=== PATIENT | female | born 1945 | race Caucasian/White ===

== ENCOUNTER → 2017-08-18 08:13 | Outpatient (CLI) | payer MEDICARE, SELFPAY ==
[2017-06-14 02:45] VITALS: BMI 30.5
--- NOTE | 2017-08-18 11:19 | NEURO ---
NCS and/or EMG Patient Report Ordering Doctor: Becky Burrows DATE OF SERVICE: 08/18/17 This is a left lower extremity nerve conduction study performed on this 71-year-old female with a history of stroke and spasms in her left lower extremity. Patient is diabetic but her last hemoglobin A1c was less than 5. She is seeing pain management for her pain. Spasms in her left lower extremity worse when she is supine. She has severe pitting edema today, EMG testing was therefore deferred. Left lower extremity sensory motor nerve conduction studies performed. The sural sensory response is not obtainable, conduction velocities are slowed from the motor nerves. Common peroneal distal latencies are prolonged with reduced amplitudes from the common peroneal nerve as well as the tibial motor nerve. Common peroneal and tibial F waves are prolonged and H reflex responses from the tibial nerves are bilaterally reduced. Impression this is an abnormal nerve conduction study of the left lower extremity consistent with polyneuropathy. Evaluation for other causes could include B12 testing, serum protein electrophoresis, hepatic panel, and inflammatory markers. The spasms appear to be due to upper motor neuron dysfunction (stroke). Severe edema today prohibits needle electromyography. This was discussed with the patient and family who agree.
--- NOTE | 2017-08-18 11:22 | NEURO_ITS ---
NCS and/or EMG Patient Report Ordering Doctor: Becky Burrows DATE OF SERVICE: 08/18/17 This is a left lower extremity nerve conduction study performed on this 71-year- old female with a history of stroke and spasms in her left lower extremity. Patient is diabetic but her last hemoglobin A1c was less than 5. She is seeing pain management for her pain. Spasms in her left lower extremity worse when she is supine. She has severe pitting edema today, EMG testing was therefore deferred. Left lower extremity sensory motor nerve conduction studies performed. The sural sensory response is not obtainable, conduction velocities are slowed from the motor nerves. Common peroneal distal latencies are prolonged with reduced amplitudes from the common peroneal nerve as well as the tibial motor nerve. Common peroneal and tibial F waves are prolonged and H reflex responses from the tibial nerves are bilaterally reduced. Impression this is an abnormal nerve conduction study of the left lower extremity consistent with polyneuropathy. Evaluation for other causes could include B12 testing, serum protein electrophoresis, hepatic panel, and inflammatory markers. The spasms appear to be due to upper motor neuron dysfunction (stroke). Severe edema today prohibits needle electromyography. This was discussed with the patient and family who agree.
== END ==
PROVIDERS: Family Provider Family Medicine Geriatric Medicine; PCP Family Medicine Geriatric Medicine; Visit Provider Nurse Practitioner Acute Care
DX: R20.0 Anesthesia of skin (principal); R25.2 Cramp and spasm; Z86.73 Personal history of transient ischemic attack (TIA), and cerebral infarction without residual deficits
CPT/HCPCS: 95909

== ENCOUNTER → 2017-08-25 14:47 | Outpatient (CLI) | payer MEDICARE, SELFPAY ==
--- NOTE | 2017-08-25 14:50 | VDLE_ITS ---
Reason For Study: LEG SWELLING RIGHT LEFT GSV is normal. GSV is normal. CFV is compressible, spontaneous, phasic, CFV is compressible, spontaneous, phasic, competent and demonstrates normal competent, and demonstrates normal augmentation. augmentation. FV is compressible, spontaneous, phasic, FV is compressible, spontaneous, phasic, competent and demonstrates normal competent and demonstrates normal augmentation. augmentation. POP V is compressible, spontaneous, phasic, POP V is compressible, spontaneous, phasic, competent and demonstrates normal competent and demonstrates normal augmentation. augmentation. T/P Trunk is compressible. T/P Trunk is compressible. PTV is compressible. PTV is compressible. RT PerV is compressible. LT PerV is compressible. Procedure Exam performed in department. Calf veins poorly visualized due to edema. A preliminary report was called and/or faxed to Dr. Ware. Interpretation Summary Deep veins of the lower extremities are bilaterally patent and compressible segmentally. There is no evidence of deep vein thrombosis on either side. Valvular competence appears intact within the proximal deep venous systems bilaterally. The greater saphenous veins appear bilaterally patent and compressible segmentally. Ordering Physician: Bakari Ware Referring Physician: Bakari Ware Chi Performed By: Deana Mg RVT
== END ==
PROVIDERS: Family Provider Family Medicine Geriatric Medicine; PCP Family Medicine Geriatric Medicine; Visit Provider Family Medicine Geriatric Medicine
DX: R60.0 Localized edema (principal)
CPT/HCPCS: 93970

== ENCOUNTER → 2017-09-01 13:58 | Outpatient (CLI) | payer MEDICARE, SELFPAY ==
[2017-09-01 17:30] LABS: Anion Gap 10 (5-15); BUN 23 mg/dL (7-18); BUN/Creat Ratio 27.4 RATIO (10-20); Calcium,Total 8.9 mg/dL (8.5-10.1); Chloride 103 mmol/L (98-107); Creatinine, Serum 0.84 mg/dL (0.55-1.02); EST Glomerular Filtration Rate 71 mL/min (>60); Est Glom Filt Rate - Afr Amer 86 mL/min (>60); Glucose 98 mg/dL (74-106); Potassium 3.5 mmol/L (3.5-5.1); Sodium Level 141 mmol/L (136-145)
== END ==
PROVIDERS: Family Provider Family Medicine Geriatric Medicine; PCP Family Medicine Geriatric Medicine; Visit Provider Family Medicine Geriatric Medicine
DX: E87.6 Hypokalemia (principal)
CPT/HCPCS: 36415; 80048

== ENCOUNTER → 2017-09-03 13:14 | Outpatient (CLI) | payer MEDICARE, SELFPAY ==
--- NOTE | 2017-09-03 13:17 | RAD_ITS ---
STUDY: SWALLOWING STUDY REASON FOR EXAM: Female, 71 years old. Dysphagia. TECHNIQUE: The examination was performed with Speech Pathology in attendance. Under fluoroscopic observation, the patient ingested thin barium, thick barium, barium pudding, and barium coated cracker. FLUOROSCOPY TIME: 1:27 minutes/seconds. 1363 fluoroscopic images were obtained. RADIOLOGIST INVOLVEMENT: Radiologist was present and providing direct supervision. COMPARISON: None. FINDINGS: The following was observed during swallowing of the various mixtures of barium: Thin Barium: There was no evidence of aspiration or laryngeal penetration. There is evidence of aspiration with thin liquids with the chin tuck maneuver. Barium Pudding: There was no evidence of aspiration or laryngeal penetration. Barium Coated Cracker: There was no evidence of aspiration or laryngeal penetration. Prominent anterior spondylosis at the C5-C6 level. RAD/Swallowing Function w/Video IMPRESSION: Aspiration with ingestion of thin liquids with the chin tuck maneuver. The swallow study findings were discussed with the patient by the speech pathologist at the conclusion of the examination. Please see speech pathology report for more information and recommendations. Electronically Signed: Tyson Lim MD at 15:46 EST Tel [phone], Service support ,
--- NOTE | 2017-09-03 14:44 | SP.MBSS_ITS ---
PRIMARY / SECONDARY DIAGNOSIS: dysphagia (R13.10) REFERRING PHYSICIAN: Dr. Junaid Ware MD CURRENT DIET: regular textures, thin liquids DENTITION: WFL MENTAL STATUS: appropriate for participation RESPIRATORY STATUS: O2 via room air PREVIOUS MODIFIED BARIUM SWALLOW STUDY: REASON FOR REFERRAL: Patient is a 71 year old female with a past medical history significant for right subcortical / periventricular infarct referred for a modified barium swallow (MBS) study to objectively assess the Patients oropharyngeal swallow function under fluoroscopy secondary to reported coughing incidences during intake (Patient reports 1 occurrence, family reports 3 additional occurrences), with no association to diet texture, reports insidious onset without consistent presentation. 11/16/2016 MRI revealed severe senescent changes with no evidence of acute intracranial bleed, mass or ischemia as described above; lack of flow related enhancement within the right vertebral artery V4 segment with corresponding MRI neck showing termination within the posterior circulation. MRI revealed new acute infarct in the upper right parietal white matter near the acute / subacute infarct involving the right de la garza radiata; stable moderate chronic small vessel ischemic changes in the bilateral cerebral white matter and brainstem. MEDICAL HISTORY: Cerebrovascular accident, diabetic neuropathy, depression, hypertension, obesity, physical debility, tobacco abuse, type 2 diabetes mellitus, adenoidectomy, appendectomy, lumbar herniated disk surgery STUDY FINDINGS: Patient participated in a Modified Barium Swallow (MBS) study on 09/03/2017. Dr. Lim was the radiologist present for this evaluation. This study was recorded in the lateral view and images were sent to PACs for storage. The following consistencies were presented to this patient for analysis of oropharyngeal swallow function: thin liquids, pudding, and a regular textured, Hayley Doone cookie. Results of the MBS are as follows: PENETRATION / ASPIRATION SCALE (SAMANIEGO): 1 = does not enter airway 2 = enters airway/above vocal folds/ejected 3 = enters airway/above vocal folds/not ejected 4 = enters airway/contacts vocal folds/ejected 5 = enters airway/contacts vocal folds/not ejected 6 = enters airway/below vocal folds/ejected 7 = enters airway/below vocal folds/not ejected despite effort 8 = enters airway/below vocal folds/no effort VIDEOFLOROSCOPIC SCALE SCORE (SAMANIEGO): Grade I = aspiration of material that has penetrated into the laryngeal vestibule, intact cough reflex Grade II = aspiration < 10 % of the bolus, intact cough reflex Grade III = aspiration of < 10 % of the bolus, reduced cough reflex or aspiration of > 10 % of the bolus, intact cough reflex Grade IV = aspiration of > 10 % of the bolus, reduced cough reflex PENETRATION / ASPIRATION SCALE (SCORE) WITH VIDEOFLOROSCOPIC SCALE SCORE: Thin liquid - 5 mL tsp.: 1 Thin liquids via cup (single sip): 1 Thin liquids via cup (single sip): 1 Thin liquids via cup (single sip): 1 Thin liquids via cup (sequential swallows): 1 Thin liquids via cup (chin tuck): 7 - Grade II Pudding via spoon: 1 Regular textured cookie: 1 Thin liquids via straw (sequential swallows): 1 Thin liquids via straw (single sip): 1 IMPRESSION: DIAGNOSIS: mild to moderate oropharyngeal dysphagia (R13.12) ORAL PHASE CHARACTERIZED BY: LABIAL SEAL: intermittent escape beyond interlabial space or lateral juncture; no extension beyond isaiah border TONGUE CONTROL DURING BOLUS MANIPULATION: intermittent posterior escape of greater than half of bolus BOLUS PREPARATION / MASTICATION: timely and efficient chewing and mashing BOLUS TRANSPORT / LINGUAL MOTION: brisk tongue motion ORAL RESIDUE: intermittent trace residue lining oral structures PHARYNGEAL PHASE CHARACTERIZED BY: INITIATION OF PHARYNGEAL SWALLOW: bolus head in pyriforms at first hyoid excursion during trials of thin liquid via straw; bolus head in valleculae at first hyoid excursion across remaining trials SOFT PALATE ELEVATION: no bolus between soft palate and pharyngeal wall LARYNGEAL ELEVATION: partial superior movement of thyroid cartilage/partial approximation of arytenoids cartilage to epiglottic petiole ANTERIOR HYOID EXCURSION: complete anterior movement EPIGLOTTIC MOVEMENT: complete epiglottic inversion LARYNGEAL VESTIBULE CLOSURE AT HEIGHT OF SWALLOW: complete laryngeal vestibule closure with no air/contrast in laryngeal vestibule PHARYNGEAL STRIPPING WAVE: pharyngeal stripping wave present / complete PHARYNGOESOPHAGEAL SEGMENT OPENING: complete distension and complete duration with no obstruction of flow TONGUE BASE RETRACTION: no contrast between tongue base and posterior pharyngeal wall PHARYNGEAL RESIDUE: complete pharyngeal clearance ESOPHAGEAL PHASE CHARACTERIZED BY: ESOPHAGEAL BOLUS CLEARANCE IN THE UPRIGHT POSITION: could not view EFFECTS OF TREATMENT STRATEGIES ATTEMPTED: Chin tuck posture = ineffective Reduced bolus size = effective Removal of straw = effective DIET TEXTURE RECOMMENDATIONS: Will recommend a regular-soft textured, thin liquid diet. COMPENSATORY STRATEGIES RECOMMENDED: Reduced bolus volume, left sided bolus placement (independently completes prior to assessment), avoid straws, seated upright at 90 degrees during PO intake INTERPRETATION OF RESULTS: Patient presents with mild to moderate oropharyngeal dysphagia (R13.12) likely secondary to a combination of a previous right subcortical / periventricular infarct and secondary presbyphagia. Oral phase primarily marked by suboptimal lingual control due to mild residual with noted intermittent posterior bolus loss of thin liquids; and mild insufficient labial control resulting in intermittent anterior bolus loss of thin liquids. Pharyngeal phase primarily marked by delayed pharyngeal swallow onset timing resulting in suboptimal bolus location upon swallow onset contributing to pre-prandial / prandial penetration and aspiration on one occasion. Patient noted to overtly aspirate during trials of thin liquids, suggesting clinical assessment at bedside relying on identification of classic overt signs and symptoms of aspiration to be considered a reliable indicator of tolerance. RECOMMENDATIONS: Patient and Patients family able to comprehend and express recommended intake precautions detailed above with sufficient detail to suggest high likelihood of compliance. Provided brief overview of signs and symptoms of aspiration, with recommendations for the Patient to further discuss symptoms with PCP. No further skilled speech-language services warranted at this time targeting dysphagia. ADDITIONAL COMMENTS/RECOMMENDATIONS: Results and recommendations were discussed with the Patient immediately following MBS completion, with the Patient verbalizing understanding and agreement with all recommendations and education provided. IMAGE COUNT: 1363 G-CODES: SWALLOWING [id number] Current Status: CI SWALLOWING G8997 Goal Status: CI SWALLOWING G8998 Discharge Status: CI
== END ==
PROVIDERS: Family Provider Family Medicine Geriatric Medicine; PCP Family Medicine Geriatric Medicine; Visit Provider Family Medicine Geriatric Medicine
DX: R13.10 Dysphagia, unspecified (principal)
CPT/HCPCS: 74230; 92611; G8996; G8997; G8998

== ENCOUNTER → 2017-09-08 12:38 | Outpatient (CLI) | payer MEDICARE, SELFPAY | PROVIDERS: Family Provider Family Medicine Geriatric Medicine; PCP Family Medicine Geriatric Medicine; Visit Provider Family Medicine Geriatric Medicine | DX: N39.0 Urinary tract infection, site not specified (principal) | CPT/HCPCS: 87086; 87088; 87186 ==

== ENCOUNTER → 2017-09-16 15:15 | Outpatient (CLI) | payer MEDICARE, SELFPAY ==
[2017-09-16 17:49] LABS: Anion Gap 7 (5-15); BUN 19 mg/dL (7-18); BUN/Creat Ratio 27.7 RATIO (10-20); Calcium,Total 9.2 mg/dL (8.5-10.1); Chloride 105 mmol/L (98-107); Creatinine, Serum 0.69 mg/dL (0.55-1.02); EST Glomerular Filtration Rate 89 mL/min (>60); Est Glom Filt Rate - Afr Amer 108 mL/min (>60); Glucose 86 mg/dL (74-106); Potassium 3.6 mmol/L (3.5-5.1); Sodium Level 142 mmol/L (136-145)
== END ==
PROVIDERS: Family Provider Family Medicine Geriatric Medicine; PCP Family Medicine Geriatric Medicine; Visit Provider Family Medicine Geriatric Medicine
DX: E87.6 Hypokalemia (principal)
CPT/HCPCS: 36415; 80048

== ENCOUNTER → 2017-09-23 14:41 | Outpatient (CLI) | payer MEDICARE, SELFPAY ==
[2017-09-23 15:16] LABS: Absolute Lymphocyte Count 2.11 X10^3/ul (0.83-4.51); Absolute Neutrophil Count 3.7 X10^3/uL (2.0-7.7); Basophil# 0.02 X10^3/uL; Basophil% 0.3 % (0-1); Eosinophil# 0.15 X10^3/uL; Eosinophils% 2.3 % (0-5); Hemoglobin 12.7 g/dl (12.0-15.0); Lymphocyte # 2.11 X10^3/ul (4.0); Mean Corp Hgb Conc 31.8 g/gl (32-36); Mean Corpuscular Hgb 29.8 pg (27.0-32.0); Mean Corpuscular Volume 93.9 fL (81-99); Mean Platelet Vol. 11.1 fl (6.2-12.0); Monocyte# 0.42 X10^3/uL; Monocyte% 6.6 % (0-10); Neutrophil % 57.8 % (47-70); Platelet Count 228 K/mm3 (150-450); RBC Distribution Width CV 13.4 % (11.6-14.6); RBC Distribution Width SD 45.9 fl (35.1-43.9); Red Blood Count 4.26 M/mm3 (4.2-5.4); White Blood Count 6.4 K/mm3 (4.4-11.0)
[2017-09-23 15:35] LABS: POSITIVE COUNT NO; POSITIVE DIFFERENTIAL NO; POSITIVE MORPHOLOGY NO
[2017-09-23 16:01] LABS: ALB/GLOB Ratio 0.8 RATIO (0.9-2.4); AST(SGOT) 20 U/L (15-37); Alanine Aminotransfer ALT/SGPT 29 U/L (13-56); Albumin, Serum 3.3 g/dL (3.2-5.0); Alkaline Phosphatase 53 U/L (45-117); Anion Gap 7 (5-15); BUN 25 mg/dL (7-18); BUN/Creat Ratio 32.2 RATIO (10-20); Calcium,Total 9.2 mg/dL (8.5-10.1); Chloride 103 mmol/L (98-107); Creatinine, Serum 0.78 mg/dL (0.55-1.02); EST Glomerular Filtration Rate 78 mL/min (>60); Est Glom Filt Rate - Afr Amer 94 mL/min (>60); Globulin 3.9 g/dL (2.2-4.2); Glucose 97 mg/dL (74-106); Potassium 3.9 mmol/L (3.5-5.1); Protein, Total 7.2 g/dL (6.4-8.2); Sodium Level 141 mmol/L (136-145)
[2017-09-24 10:21] LABS: Vitamin D,25 Hydroxy 25.7 ng/mL (29.95-100.01)
== END ==
PROVIDERS: Family Provider Family Medicine Geriatric Medicine; PCP Family Medicine Geriatric Medicine; Visit Provider Family Medicine Geriatric Medicine
DX: E11.9 Type 2 diabetes mellitus without complications (principal); E55.9 Vitamin D deficiency, unspecified; I10 Essential (primary) hypertension
CPT/HCPCS: 36415; 80053; 82306; 84443; 85025

== ENCOUNTER → 2017-12-22 16:23 | Outpatient (CLI) | payer MEDICARE, SELFPAY ==
[2017-12-22 17:37] LABS: Absolute Lymphocyte Count 1.91 X10^3/ul (0.83-4.51); Absolute Neutrophil Count 3.7 X10^3/uL (2.0-7.7); Basophil# 0.02 X10^3/uL; Basophil% 0.3 % (0-1); Eosinophil# 0.16 X10^3/uL; Eosinophils% 2.6 % (0-5); Hematocrit 40.1 % (37-47); Hemoglobin 13.1 g/dl (12.0-15.0); Lymphocyte # 1.91 X10^3/ul (4.0); Lymphocyte % 31.1 % (19-41); Mean Corp Hgb Conc 32.7 g/gl (32-36); Mean Corpuscular Hgb 30.4 pg (27.0-32.0); Mean Platelet Vol. 10.6 fl (6.2-12.0); Monocyte# 0.36 X10^3/uL; Monocyte% 5.9 % (0-10); Neutrophil # 3.69 X10^3/uL (2.7-7.7); Neutrophil % 59.9 % (47-70); Platelet Count 213 K/mm3 (150-450); RBC Distribution Width CV 13.4 % (11.6-14.6); Red Blood Count 4.31 M/mm3 (4.2-5.4); White Blood Count 6.2 K/mm3 (4.4-11.0)
[2017-12-22 17:38] LABS: POSITIVE COUNT NO; POSITIVE DIFFERENTIAL NO; POSITIVE MORPHOLOGY NO
[2017-12-22 18:13] LABS: Vitamin D,25 Hydroxy 21.1 ng/mL (29.95-100.01)
[2017-12-22 18:17] LABS: ALB/GLOB Ratio 0.8 RATIO (0.9-2.4); AST(SGOT) 19 U/L (15-37); Alanine Aminotransfer ALT/SGPT 27 U/L (13-56); Albumin, Serum 3.2 g/dL (3.2-5.0); Alkaline Phosphatase 46 U/L (45-117); Anion Gap 6 (5-15); BUN 23 mg/dL (7-18); BUN/Creat Ratio 35.1 RATIO (10-20); Calcium,Total 8.5 mg/dL (8.5-10.1); Chloride 108 mmol/L (98-107); Creatinine, Serum 0.66 mg/dL (0.55-1.02); EST Glomerular Filtration Rate 94 mL/min (>60); Est Glom Filt Rate - Afr Amer 114 mL/min (>60); Globulin 3.9 g/dL (2.2-4.2); Glucose 78 mg/dL (74-106); Potassium 3.8 mmol/L (3.5-5.1); Protein, Total 7.1 g/dL (6.4-8.2); Sodium Level 145 mmol/L (136-145); Thyroid Stim Hormone (TSH) 0.59 uIU/mL (0.358-3.74)
== END ==
PROVIDERS: Family Provider Family Medicine Geriatric Medicine; PCP Family Medicine Geriatric Medicine; Visit Provider Family Medicine Geriatric Medicine
DX: E11.9 Type 2 diabetes mellitus without complications (principal); E55.9 Vitamin D deficiency, unspecified; I10 Essential (primary) hypertension
CPT/HCPCS: 36415; 80053; 82306; 84443; 85025

== ENCOUNTER → 2018-04-08 15:42 | Outpatient (CLI) | payer MEDICARE, SELFPAY ==
--- NOTE | 2018-04-08 15:51 | CT_ITS ---
STUDY: LOW DOSE CT LUNG CANCER SCREENING REASON FOR EXAM: Female, 72 years old. 39 pack-year history, quit 8 years ago. RADIATION DOSAGE (If Supplied By Facility): CTDIvol = ( 3.02 ) mGy, DLP = ( 876.20 ) mGycm TECHNIQUE: No contrast was administered. Low dose technique was utilized (average mAS-38 and kVp 120). 1.25 mm axial source images with a slice interval of 1.25-mm were reconstructed in lung windows. 2.5 mm axial source images with a slice interval of 2.5-mm were reconstructed in lung windows. 5.0 mm axial source images with a slice interval of 5.0-mm were reconstructed in soft tissue windows. Nodule measured using lung windows on PACS and/or independent workstation with automated measurement of minimum and maximum diameter. Nodule measurement reported as average diameter rounded to the nearest whole number. Growth is defined as an increase ins size of greater than 1.5 mm. COMPARISON: Chest, May 12, 2017. NODULES: Nodule #: 1 Density: Solid Lung location: Right upper lobe: 0.1 cm from pleura Location in series: Series Number: 2 Image: 32 Size - D1 x D2 mm: 2.2 mm: 2 mm average diameter Margin: Smooth Shape: Rounded Calcification: Yes Fat: No Temporal comparison: No Nodule #: 2 Density: Solid Lung location: Left lobe: Pleural-based Location in series: Series Number: 2 Image: 32 Size - D1 x D2 mm: 2 x 2 mm: 2 mm average diameter Margin: Smooth Shape: Round Calcification: Yes Fat: No Temporal comparison: No Nodule #: 3 Density: Solid Lung location: Right upper lobe: 0 point cm from pleura Location in series: Series Number: 2 Image: 39 Size - D1 x D2 mm: 6 x 4 mm: 5 mm average diameter Margin: Smooth Shape: Oval Calcification: Yes Fat: No Temporal comparison: No Nodule #: 4 Density: Solid Lung location: Left upper lobe: 2.3 cm from pleura Location in series: Series Number: 2 Image: 45 Size - D1 x D2 mm: 5 x 2 mm: 4 mm average diameter Margin: Smooth Shape: Oval Calcification: Yes Fat: No Temporal comparison: No Nodule #: 5 Density: Solid Lung location: Right upper lobe: 0.5 cm from pleura Location in series: Series Number: 2 Image: 50 Size - D1 x D2 mm: 7 x 4 mm: 6 mm average diameter Margin: Smooth Shape: Oval Calcification: Yes Fat: No Temporal comparison: No Nodule #: 6 Density: Solid Lung location: Left upper lobe: 0.4 cm from pleura Location in series: Series Number: 2 Image: 61 Size - D1 x D2 mm: 5 x 4 mm: 5 mm average diameter Margin: Smooth Shape: Round Calcification: Yes Fat: No Temporal comparison: Stable Nodule #: 7 Density: Solid Lung location: Right upper lobe: 3 cm from pleura Location in series: Series Number: 2 Image: 84 Size - D1 x D2 mm: 6 x 4 mm: 5 mm average diameter Margin: Smooth Shape: Oval Calcification: Yes Fat: No Temporal comparison: Stable Nodule #: 8 Density: Solid Lung location: Left upper lobe: 0 point cm from pleura Location in series: Series Number: 2 Image: 84 Size - D1 x D2 mm: 5 x 4 mm: 5 mm average diameter Margin: Smooth Shape: Oval Calcification: Yes Fat: No Temporal comparison: No Nodule #: 9 Density: Solid Lung location: Right middle lobe: 1.2 cm from pleura Location in series: Series Number: 2 Image: 109 Size - D1 x D2 mm: 5 x 4 mm: 5 mm average diameter Margin: Smooth Shape: Round Calcification: Yes Fat: No Temporal comparison: Stable Nodule #: 10 Density: Solid Lung location: Right middle lobe: 1.8 cm from pleura Location in series: Series Number: 2 Image: 103 Size - D1 x D2 mm: 4 x 3 mm: 4 mm average diameter Margin: Smooth Shape: Round Calcification: Yes Fat: No Temporal comparison: No Nodule #: 11 Density: Solid Lung location: Left lower lobe: Pleural-based Location in series: Series Number: 2 Image: 140 Size - D1 x D2 mm: 7 x 3 mm: 6 average diameter Margin: Smooth Shape: Oval Calcification: Yes Fat: No Temporal comparison: No Total lung nodules (excluding granulomas): 0 Emphysema: There is mild emphysematous changes of lungs. Endobronchial lesion: None Aorta: There is atherosclerotic changes of the thoracic aorta. Coronary arteries: There are coronary artery calcifications. Heart: The heart is normal in size. There is pericardial thickening. Pulmonary artery: Normal Mediastinal nodes: None Other chest and abdominal findings: There is mild degenerative changes of the thoracic spine. CT/Low Dose CT Lung Screening IMPRESSION: Lung-RADS category 1 - Continue annual screening with LDCT in 12 months. IMPORTANT NOTES FOR USE: ACR Lung-RADS Version 1.0 Assessment Categories Release Date: November 06, 2013 Category: Coded 0-4 bases on nodule(s) with highest degree of suspicion. Negative screen is defined as categories 1 and 2; a positive screen is defined as categories 3 and 4. Category 3 and 4A nodules that are unchanged on interval CT should be coded as category 2, and individuals returned to screening in 12 months. Category 4X: Category 3 or 4 nodules with additional imaging findings that increase the suspicion of lung cancer, such as spiculation, GGN that doubles in size in 1 year, enlarged lymph notes, etc. Category Modifiers: S (significant finding unrelated to lung cancer) and C (prior history of treated lung cancer) may be added to the 0-4 Lung-RADS Electronically Signed: Ab Hylton DO at 21:43 EDT Tel [phone], Service support ,
== END ==
PROVIDERS: Family Provider Family Medicine Geriatric Medicine; PCP Family Medicine Geriatric Medicine; Referring Provider Family Medicine Geriatric Medicine; Visit Provider Family Medicine Geriatric Medicine
DX: Z12.2 Encounter for screening for malignant neoplasm of respiratory organs (principal); Z87.891 Personal history of nicotine dependence
CPT/HCPCS: G0297

== ENCOUNTER → 2018-04-14 13:02 | Outpatient (CLI) | payer MEDICARE, SELFPAY ==
--- NOTE | 2018-04-14 14:42 | RAD_ITS ---
STUDY: X-RAY - LEFT FOOT CLINICAL: Female, 72 years old. Chronic pain TECHNIQUE: 3 view(s) of the foot. COMPARISON: None. FINDINGS: The bones are diffusely demineralized. Normal talus, calcaneus, and tarsal bones. Normal visualized subtalar, talonavicular, calcaneocuboid, tarsal and tarsometatarsal articulations. Normal metatarsi. There is degenerative arthrosis of the metatarsophalangeal joint of the hallux . Normal tibial and fibular sesamoid bones. Normal interphalangeal joint of the great toe. Normal phalanges of the great toe. Normal second through fifth metatarsophalangeal joints. PIP and DIP joint arthrosis There is nonspecific soft tissue swelling, particularly in the dorsum above the metatarsals. RAD/Foot min 3 Views IMPRESSION: Diffuse osteopenia with degenerative arthrosis. No demonstrated fracture. There is however nonspecific soft tissue swelling particularly in the dorsum of the foot and a subtle occult fracture cannot be excluded. Electronically Signed: George Rascon MD at 10:24 EDT , Service support ,
--- NOTE | 2018-04-14 14:42 | RAD_ITS ---
STUDY: X-RAY - LEFT ANKLE REASON FOR EXAM: Female, 72 years old. Chronic pain. TECHNIQUE: 3 view(s) of the ankle. COMPARISON: None. FINDINGS: The bones are diffusely demineralized. Normal medial and lateral malleoli. Normal tibiotalar articulation and ankle mortise. There is a plantar calcaneal enthesophyte. There are degenerative changes of the midfoot. There is diffuse soft tissue swelling. There are vascular calcifications. RAD/Ankle min 3 Views IMPRESSION: Diffusely demineralized bones. Diffuse soft tissue swelling. Atherosclerosis. Electronically Signed: Alejandrina Mota MD at 16:42 EDT Tel , Service support ,
[2018-04-14 16:45] LABS: Absolute Lymphocyte Count 1.71 X10^3/ul (0.83-4.51); Absolute Neutrophil Count 5.3 X10^3/uL (2.0-7.7); Basophil# 0.02 X10^3/uL; Basophil% 0.3 % (0-1); Eosinophil# 0.14 X10^3/uL; Eosinophils% 1.9 % (0-5); Hematocrit 41.6 % (37-47); Hemoglobin 13.7 g/dl (12.0-15.0); Lymphocyte # 1.71 X10^3/ul (4.0); Lymphocyte % 22.9 % (19-41); Mean Corp Hgb Conc 32.9 g/gl (32-36); Mean Corpuscular Hgb 30.4 pg (27.0-32.0); Mean Corpuscular Volume 92.4 fL (81-99); Mean Platelet Vol. 11.7 fl (6.2-12.0); Monocyte# 0.33 X10^3/uL; Monocyte% 4.4 % (0-10); Neutrophil # 5.26 X10^3/uL (2.7-7.7); Neutrophil % 70.4 % (47-70); Platelet Count 207 K/mm3 (150-450); RBC Distribution Width CV 12.8 % (11.6-14.6); RBC Distribution Width SD 42.1 fl (35.1-43.9); White Blood Count 7.5 K/mm3 (4.4-11.0)
[2018-04-14 16:58] LABS: POSITIVE COUNT NO; POSITIVE DIFFERENTIAL NO; POSITIVE MORPHOLOGY NO
[2018-04-14 17:04] LABS: Vitamin D,25 Hydroxy 22.6 ng/mL (29.95-100.01)
[2018-04-14 17:06] LABS: ALB/GLOB Ratio 0.8 RATIO (0.9-2.4); AST(SGOT) 16 U/L (15-37); Alanine Aminotransfer ALT/SGPT 25 U/L (13-56); Albumin, Serum 3.3 g/dL (3.2-5.0); Alkaline Phosphatase 55 U/L (45-117); Anion Gap 5 (5-15); BUN 23 mg/dL (7-18); BUN/Creat Ratio 28.7 RATIO (10-20); Calcium,Total 8.7 mg/dL (8.5-10.1); Chloride 104 mmol/L (98-107); EST Glomerular Filtration Rate 75 mL/min (>60); Est Glom Filt Rate - Afr Amer 90 mL/min (>60); Globulin 3.9 g/dL (2.2-4.2); Glucose 207 mg/dL (74-106); Potassium 3.4 mmol/L (3.5-5.1); Protein, Total 7.2 g/dL (6.4-8.2); Sodium Level 139 mmol/L (136-145); Thyroid Stim Hormone (TSH) 0.66 uIU/mL (0.358-3.74)
== END ==
LOC: POLAB3 13:03 → RAD 14:41
PROVIDERS: Family Provider Family Medicine Geriatric Medicine; PCP Family Medicine Geriatric Medicine; Referring Provider Family Medicine Geriatric Medicine; Visit Provider Family Medicine Geriatric Medicine
DX: E11.9 Type 2 diabetes mellitus without complications (principal); E55.9 Vitamin D deficiency, unspecified; I10 Essential (primary) hypertension; M25.579 Pain in unspecified ankle and joints of unspecified foot; M79.609 Pain in unspecified limb
CPT/HCPCS: 36415; 73610; 73630; 80053; 82306; 84443; 85025

== ENCOUNTER → 2018-04-19 12:29 | Outpatient (CLI) | payer MEDICARE, SELFPAY ==
[2018-04-19 14:53] LABS: Color, Urine Yellow (Yellow); Glucose, Dipstick Normal (Normal); Ketone-Dipstick Negative (Negative); Leukocyte Esterase-Dipstick 500 /ul (Negative); Nitrite-Dipstick Negative (Negative); Occult Blood-Urine 10 /ul (Negative); Protein-Dipstick 30 mg/dl (Negative); Specific Gravity, Urine 1.015 (1.002-1.030); Urine Bilirubin Dipstick Negative (Negative); Urine Clarity Sl. Cloudy (Clear); Urine Urobilinogen Normal (Normal)
[2018-04-19 14:59] LABS: Bacteria 2+ /hpf (None Seen); Mucous, Urine 1+ /hpf (<or=2+); Red Blood Cells-Urine 0-5 SEEN /hpf (0-5); Squamous Epithelial Cells - UA 0-5 SEEN /hpf (5-10); White Blood Cells 25-50 SEEN /hpf (0-5)
== END ==
PROVIDERS: Family Provider Family Medicine Geriatric Medicine; PCP Family Medicine Geriatric Medicine; Referring Provider Urology; Visit Provider Urology
DX: R82.998 Other abnormal findings in urine (principal)
CPT/HCPCS: 81001; 87086; 87088; 87186

== ENCOUNTER → 2018-05-27 12:13 | Outpatient (CLI) | payer MEDICARE, SELFPAY | PROVIDERS: Family Provider Family Medicine Geriatric Medicine; PCP Family Medicine Geriatric Medicine; Visit Provider Urology | DX: N39.0 Urinary tract infection, site not specified (principal) | CPT/HCPCS: 87086; 87088; 87186 ==

== ENCOUNTER 2018-06-08 05:46 | Day surgery (SDC) | payer MEDICARE, SELFPAY ==
[2018-06-08] VITALS (7 sets, daily range): BP systolic 106–155; BP diastolic 57–87; PULSE 62–76; RESP 16; TEMP 36.3–36.8; O2SAT 93–97; BMI 36.2
[2018-06-08 06:55] LABS: Bedside Glucose 236 mg/dL (70-110)
[2018-06-08] MEDS: Cefazolin 2 GM in 0.9% Normal Saline 100 ML IV (07:23)
--- NOTE | 2018-06-08 07:29 | DCINST_ITS ---
Discharge Diet: Light diet - advance as tolerated Discharge Activity: May Shower - keep back dry Call your doctor if you observe: Fever of 101 or Higher Suture Line Care: Avoid Pulling/Pushing, Avoid Pinching/Bending Allergies/Adverse Reactions: Allergies promethazine HCl [From Phenergan] Adverse Reaction (Verified 06/01/18 11:31) Nausea Medications to take at Discharge Aspirin [Aspirin, Baby] 81 mg PO DAILY@0800 #30 tab.chew 03/09/16 Atorvastatin Calcium [Lipitor] 40 mg PO QHS #30 tablet 03/09/16 Clopidogrel Bisulfate [Plavix] 75 mg PO DAILY #30 tablet 03/09/16 Glimepiride [Amaryl] 1 mg PO DAILY #30 tablet 03/09/16 Lisinopril [Zestril] 20 mg PO DAILY #30 tablet 03/09/16 Polyethylene Glycol 3350 [Miralax] 17 gm PO DAILY PRN 05/12/17 Escitalopram Oxalate [Lexapro] 20 mg PO QHS 06/14/17 Gabapentin [Neurontin] 200 mg PO TIDCM 06/14/17 Baclofen 20 mg PO TID 06/01/18 Galantamine HBr [Galantamine ER] 8 mg PO BID 06/01/18 Melatonin 12 mg PO QHS 06/01/18 Memantine HCl [Namenda] 10 mg PO BID 06/01/18 Multivitamin [Multiple Vitamins] 1 each PO DAILY 06/01/18 Acetaminophen [Tylenol Extra Strength] 500 mg PO Q4H PRN PRN #20 tablet 06/08/18 Cephalexin [Keflex] 500 mg PO Q8 #15 capsule 06/08/18 Ibuprofen 600 mg PO Q6H PRN PRN #20 tablet 06/08/18 The following prescriptions were given: Acetaminophen [Tylenol Extra Strength] 500 mg PO Q4H PRN PRN #20 tablet PRN Reason: Pain Ibuprofen 600 mg PO Q6H PRN PRN #20 tablet PRN Reason: Pain Cephalexin [Keflex] 500 mg PO Q8 #15 capsule Primary Care Physician: Bakari Ware Chi, MD [Primary Care Provider] - Test Results: Test results from this visit will be discussed in further detail at your follow- up appointment, if applicable. Please Follow Up With: Connor Brito MD When: next week to see if interstigoyo is working
--- NOTE | 2018-06-08 07:30 | RAD_ITS ---
STUDY: X-RAY - PELVIS REASON FOR EXAM: Female, 72 years old. InterStim therapy. TECHNIQUE: AP and lateral views were obtained intraoperatively. COMPARISON: None. FINDINGS: The tip of the electrode is seen along the superior posterior aspect of the left hemipelvis. RAD/Pelvis 1 or 2 Views IMPRESSION: Intraoperative imaging provided for InterStim therapy. Electronically Signed: Tyson Lim MD at 9:29 EST Tel [phone], Service support ,
--- NOTE | 2018-06-08 08:20 | PCM.OPRPT ---
Report of Operation Date of Procedure: 06/08/18 Pre-Operative Diagnosis: Overactive bladder and urge incontinence Post-Operative Diagnosis: The same Surgery/Procedure Performed:: Stage I InterStim Description of Surgical Findings:: 72-year-old female with a history of overactive bladder and urge incontinence she is tried multiple medications as well failed she has to wear depends all the time and is wet constantly. She is agreeable to trying InterStim therapy to see if this will help her bladder control she understands that it may not be helpful. So today were to proceed with stage I InterStim therapy and placement of the lead and a temporary extension to see if this will improve her bladder control. 72-year-old female taken back to the operating room she was placed facedown on the table make sure all her pressure points are padded she underwent sedation we then tilted the table to make sure that the lower back was flat and then we came with fluoroscopy identified the sacrum the sacral promontory's in both sides placed the needle electrode between the 2 marked this on the skin and then marked out the lateral edges of the foramen entrance is along the sacrum. I then marched up in the midline we went lateral and came down with the first needle what appeared to be the S3 location and the needle dropped down into the foramen quite easily we stimulated on very low stimulation we got good toe reflexes and then we inserted increase his stimulation we got bharti response. Appear to be S3 so then we went one lower down and dropped the needle electrode through and got bharti but no toe so we thought this would be S4. So then we stayed with the S3 lead we took out the S4 site we put the stabilizer through the needle electrode remove the needle electrode made an incision in the skin and then introducer stylette the marker in the stylette was then placed midway between the anterior and posterior part of the bone and the sacrum and then we advanced the electrode through this so that there was 0 was above the bone and 1 2 and 3 were right below we checked AP and lateral and the placement of the lead appeared to be appropriate and we checked 012 and 3 got good toe response in all 3 of them and also we checked 012 and 3 got good bharti response on 3 out of 4. We then left the electrode in place pulled back on the sheath we then tunneled the electrode to the temporary pocket connected the electrode with the boot to the extension and then tunneled the extension to the exit point superior to the entry point. We closed our incisions with subcuticular stitches with the secure the temporary extension electrode to the Bluetooth device and then taped this to the back with Steri-Strips and also tape. Once we secured all the tape down then patient anesthetic was reversed she is taken back to PACU good condition she undergoes setting of the InterStim therapy and will see her in a week to review the results of the trial and to see if we either proceed with stage II or removal of the InterStim. Type of Anesthesia:: Local MAC Drains: none - Admit VTE Documentation VTE Present on Admission: No
[2018-06-08] MEDS: Ketorolac 15 MG/ML Vial IV (08:43)
[2018-06-08 09:55] LABS: Bedside Glucose 242 mg/dL (70-110)
--- OUTSIDE RECORDS SUMMARY | 2018-08-03 11:09 | XMS RPT_ITS ---
:1945 Author Organization [place] Support Name Relationship Address Phone SAMIR DARON Unavailable [address] + [place] [address] ANGELA, SELVIN Unavailable Unavailable + [place] [address] R Unavailable Unavailable Unavailable SMAIR, DARON Unavailable [address] + [place] [address] ANGELA, SELVIN Unavailable Unavailable + [place] [address] R Unavailable Unavailable Unavailable SAMIR, DARON Unavailable [address] + [place] [address] ANGELA, SELVIN Unavailable Unavailable + [place] [address] R Unavailable Unavailable Unavailable SAMIR, DARON Unavailable [address] + [place] [address] ANGELA, SELVIN Unavailable Unavailable + [place] [address] R Unavailable Unavailable Unavailable SAMIR, DARON Unavailable [address] + [place] [address] ANGELA, SELVIN Unavailable Unavailable + [place] [address] R Unavailable Unavailable Unavailable SAMIR, DARON Unavailable [address] + [place] [address] ANGELA, SELVIN Unavailable Unavailable + [place] [address] R Unavailable Unavailable Unavailable SAMIR, DARON Unavailable [address] + [place] [address] ANGELA, SELVIN Unavailable Unavailable + [place] [address] R Unavailable Unavailable Unavailable SAMIR, DARON Unavailable [address] + [place] [address] ANGELA, SELVIN Unavailable Unavailable + [place] [address] R Unavailable Unavailable Unavailable SAMIR, DARON Unavailable [address] + [place] [address] ANGELA, SELVIN Unavailable Unavailable + [place] [address] R Unavailable Unavailable Unavailable SAMIR, DARON Unavailable [address] + [place] [address] ANGELA, SELVIN Unavailable Unavailable + [place] [address] R Unavailable Unavailable Unavailable SAMIR, DARON Unavailable [address] + [place] [address] ANGELA, SELVIN Unavailable Unavailable + [place] [address] R Unavailable Unavailable Unavailable SAMIR, DARON Unavailable [address] + [place] [address] ANGELA, SELVIN Unavailable Unavailable + [place] [address] R Unavailable Unavailable Unavailable SAMIR, DARON Unavailable [address] + [place] [address] ANGELA, SELVIN Unavailable Unavailable + [place] [address] R Unavailable Unavailable Unavailable SAMIR, DARON Unavailable [address] + [place] [address] ANGELA, SELVIN Unavailable Unavailable + [place] [address] R Unavailable Unavailable Unavailable SAMIR, DARON Unavailable [address] + [place] [address] ANGELA, SELVIN Unavailable Unavailable + [place] [address] R Unavailable Unavailable Unavailable SAMIR, DARON Unavailable [address] + [place] [address] ANGELA, SELVIN Unavailable Unavailable + [place] [address] R Unavailable Unavailable Unavailable SAMIR, DARON Unavailable [address] + [place] [address] ANGELA, SELVIN Unavailable Unavailable + [place] [address] R Unavailable Unavailable Unavailable SAMIR, DARON Unavailable [address] [phone] [place] [address] ANGELA, SELVIN Unavailable Unavailable + [place] [address] R Unavailable Unavailable Unavailable SAMIR, DARON Unavailable [address] [phone] [place] [address] ANGELA, SELVIN Unavailable Unavailable + [place] [address] R Unavailable Unavailable Unavailable SAMIR, DARON Unavailable [address] [phone] [place] [address] ANGELA, SELVIN Unavailable Unavailable + R Unavailable Unavailable Unavailable SAMIR, ADRON Unavailable [address] [phone] [place] [address] ANGELA, SELVIN Unavailable Unavailable + R Unavailable Unavailable Unavailable SAMIR, DARON Unavailable [address] [phone] [place] [address] ANGELA, SELVIN Unavailable . + ., [place] . R Unavailable Unavailable Unavailable SAMIR, DARON Unavailable [address] [phone] [place] [address] ANGELA, SELVIN Unavailable . + ., [place] . R Unavailable Unavailable Unavailable SAMIR, DARON Unavailable [address] [phone] [place] [address] ANGELA, SELVIN Unavailable . + ., [place] . R Unavailable Unavailable Unavailable Care Team Providers Name Role Phone Michael Wing Attending Unavailable Rolando Avila Referring Unavailable Talampas, Sophie Attending Unavailable Talampas, Sophie Primary Care Unavailable Talampas, Sophie Attending Unavailable Talampas, Sophie Primary Care Unavailable Talampas, Sophie Referring Unavailable Sarah Ladd Attending Unavailable Talampas, Sophie Primary Care Unavailable Markos, Silverlake [facility] Attending Unavailable Markos, Becky [facility] Referring Unavailable Chaz, Bakari Chi Primary Care Unavailable Chaz, Bakari Chi Attending Unavailable Chaz, Bakari Chi Referring Unavailable Chaz, Bakari Chi Primary Care Unavailable Chaz, Bakari Chi Attending Unavailable Chaz, Bakari Chi Referring Unavailable Chaz, Bakari Chi Primary Care Unavailable Chaz, Bakari Chi Attending Unavailable Chaz, Bakari Chi Referring Unavailable Chaz, Bakari Chi Primary Care Unavailable Chaz, Bakari Chi Attending Unavailable Chaz, Bakari Chi Primary Care Unavailable Chaz, Bakari Chi Attending Unavailable Chaz, Bakari Chi Primary Care Unavailable Chaz, Bakari Chi Attending Unavailable Chaz, Bakari Chi Primary Care Unavailable Chaz, Bakari Chi Attending Unavailable Chaz, Bakari Chi Primary Care Unavailable Chaz, Bakari Chi Attending Unavailable Chaz, Bakari Chi Referring Unavailable Chaz, Bakari Chi Primary Care Unavailable Chaz, Bakari Chi Attending Unavailable Chaz, Bakari Chi Primary Care Unavailable Chaz, Bakari Chi Referring Unavailable Daryl, Connor Waddell Attending Unavailable Daryl, Connor Waddell Referring Unavailable Chaz, Bakari Chi Primary Care Unavailable Daryl, Connor Waddell Attending Unavailable Daryl, Ganesh Referring Unavailable Chaz, Bakari Chi Primary Care Unavailable Daryl, Connor Waddell Attending Unavailable Chaz, Bakari Chi Primary Care Unavailable Daryl, Connor Waddell Attending Unavailable Chaz, Bakari Chi Primary Care Unavailable Daryl, Connor Waddell Referring Unavailable Chaz, Bakari Chi Primary Care Unavailable Kotsonis, Rolando F Admitting Unavailable Kotsonis, Rolando F Attending Unavailable Muriel, Musa Consulting Unavailable Kotsonis, Rolando F Admitting Unavailable Kotsonis, Rolando F Attending Unavailable Chaz, Bakari Chi Primary Care Unavailable Llamas, Musa Consulting Unavailable Kotsonis, Rolando F Consulting Unavailable Kotsonis, Rolando F Admitting Unavailable Kotsonis, Rolando F Attending Unavailable Chaz, Bakari Chi Primary Care Unavailable Llamas, Musa Consulting Unavailable Kotsonis, Rolando F Consulting Unavailable Kotsonis, Rolando F Admitting Unavailable Kotsonis, Rolando F Attending Unavailable Chaz, Bakari Chi Primary Care Unavailable Llamas, Musa Consulting Unavailable Kotsonis, Rolando F Consulting Unavailable Llamas, Musa Admitting Unavailable Chaz, Bakari Chi Primary Care Unavailable Kotsonis, Rolando F Consulting Unavailable Jairo Garza Attending Unavailable Llamas, Musa Admitting Unavailable Kotsonis, Rolando F Attending Unavailable Chaz, Bakari Chi Primary Care Unavailable Kotsonis, Rolando F Consulting Unavailable Llamas, Musa Consulting Unavailable PROBLEMS PROBLEMS DATE TYPE CONDITION / CODE ATTENDING STATUS SOURCE 05/27/2018 Unknown N39.0 - Urinary Connor Brito Active [facility] tract infection, [place] [facility] site not specified Hospital / N39.0(ICD-10) Repository 04/14/2018 Unknown E11.9 - Type 2 Chaz, Bakari Chi Active [facility] diabetes mellitus Community without Hospital complications / Repository E11.9(ICD-10) 04/14/2018 Unknown E55.9 - Vitamin D Chaz, Bakari Chi Active [facility] deficiency, Community unspecified / Hospital E55.9(ICD-10) Repository 04/14/2018 Unknown M25.579 - Pain in Chaz, Bakari Chi Active [facility] unspecified ankle Community and joints of Hospital unspecified foot / Repository M25.579(ICD-10) 04/14/2018 Unknown M79.609 - Pain in Chaz, Bakari Chi Active [place] unspecified limb / Community M79.609(ICD-10) Hospital Repository 09/16/2017 Unknown E87.6 - Hypokalemia Chaz, Bakari Chi Active [place] / E87.6(ICD-10) [facility], [facility] Repository 08/18/2017 Unknown R20.0 - Anesthesia Becky Burrows Active [place] of skin / [facility] Community R20.0(ICD-10) Hospital Repository 08/18/2017 Unknown R25.2 - Cramp and MarkosBecky edouard Active [place] spasm / [facility] Community R25.2(ICD-10) Hospital Repository 08/18/2017 Unknown Z86.73 - Personal MarkosBecky edouard Active [facility] history of [facility] Community transient ischemic Hospital attack (TIA), and Repository cerebral infarction without residual deficits / Z86.73(ICD-10) 07/28/2017 Unknown F11.20 - Opioid Basali, Ayman Active [facility] dependence, Community uncomplicated / Hospital F11.20(ICD-10) Repository PROCEDURES PROCEDURES No Procedure Records FoundRESULTS RESULTS HISTORY AND PHYSICAL Observed: 06/28/2018 Status: F Source: [place] EXAM 1:04 PM [facility] REPOSITORY [facility] Medical Records Department [address] [place] [address] History and Physical 06/11/182023 MR#: [id number] Acct: [id number] Name: YADI WESTFALL Rep #: [id number] : 1945 72 From: Abida Collins MD PCP: Chaz BERG,Bakari Correa Status: DIS IN Y Location: [id number] Problem List (1) CVA (cerebral infarction) Status: Chronic (2) Left hemiparesis Status: Acute (3) Depression Status: Chronic (4) Diabetic neuropathy Status: Chronic (5) Hypertension Status: Chronic (6) Physical debility Status: Acute (7) Stroke Status: Chronic (8) Type 2 diabetes mellitus Status: Chronic History of Present Illness Date of Admission: 06/11/18 The patient is a 72 year old CF with PMH HTN, HLD, DM, DM neuropathy H/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 Patient was admitted to [facility] with right facial droop and slurred speech on 06/08/18 following bladder stimulator placement by Dr. Brito on 06/08/18, had NIHSS of 3 per ED documentation, was not a tpa candidate per documentation, had unremarkable CT head, CTA head/neck showed right ICA 70% stenosis and Left ICA < 50% stenosis, TTE showed EF 65%, with normal LA size, MRI brain could not be done due to bladder stimulator, LDL was 32. Has been on ASA/Plavix and Lipitor at baseline since her last stroke. Per patient she lives with her daughter and daughter's BF, uses walker to ambulate, does not drive, has 2 steps going into the house, does not use the basement or the 2nd floor. [] Past Medical History Past Medical History (Chronic Problems): Chronic Problems Type 2 diabetes mellitus (Chronic) Hypertension (Chronic) Diabetic neuropathy (Chronic) Depression (Chronic) Obesity (Chronic) CVA (cerebral infarction) (Chronic) Tobacco abuse (Chronic) Stroke (Chronic) Allergies promethazine HCl [From Phenergan] Adverse Reaction (Verified 06/08/18 10:32) Nausea Home Medications: Ambulatory Orders Medication Instructions Recorded Escitalopram Oxalate [Lexapro] 20 mg PO QHS 06/14/17 Gabapentin [Neurontin] 200 mg PO TIDCM 06/14/17 Baclofen 20 mg PO TID 06/01/18 Galantamine HBr [Galantamine ER] 24 mg PO DAILY 06/01/18 Surgical History: adenoidectomy, appendectomy, - - lumbar herniated disk surgery Psychiatric History: Anxiety - Patient complains of anxiety symptoms but does not take any medications 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 TENDER history Lives: With Family Smoking Status: Former smoker Alcohol: None Drugs: None - *Family History Maternal History Items: Cancer, Hypertension, - Paternal History Items: - Sibling History Items: No pertinent history Review of Systems Constitutional: Reports: - - complete ROS negative except as documented in HPI VTE Information - Inpt Only VTE Present on Admission: No VTE Mechan Device Prophylaxis: SCD's, Knee High KATHRIN Hose VTE Pharm Prophylaxis ordered?: Yes - Physical Exam General: Alert HEENT: Normocephalic Neck: Supple Lungs: Normal air movement Cardiovascular: Normal S1, Normal S2 Abdomen: Bowel Sounds Present Extremities: No cyanosis Neurological: Cranial nerves II-XII grossly intact Psych/Mental Status: Normal Affect Vital Signs Temp Pulse Resp BP Pulse Ox 98.2 F 70 18 165/72 H 93 06/11/18 20:06 06/11/18 20:16 06/11/18 20:16 06/11/18 20:16 06/11/18 20:16 Oxygen Delivery Method Room Air Weight: 94 kg Body Mass Index (BMI) 36.7 Finger Stick Blood Glucose 221 Intake and Output for Last 24 Hours Intake Total 240 / 240 800 / 800 Output Total 250 / 250 Balance -10 / -10 800 / 800 Laboratory Tests Past 24 Hrs WBC 6.4 RBC 4.32 Hgb 12.7 Hct 38.8 POC Glucose POC Glucose 220 H 306 H 206 H POC Glucose 306 H Assessment/Plan All Active Problems UTI (urinary tract infection) (Acute) Difficulty walking (Acute) mechanical fall (Acute) Physical debility (Acute) Weakness (Acute) Left hemiparesis (Acute) Confusion (Acute) The patient is a 72 year old CF with PMH HTN, HLD, DM, DM neuropathy H/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 Patient was admitted to [facility] with right facial droop and slurred speech on 06/08/18 following bladder stimulator placement by Dr. Brito on 06/08/18, had NIHSS of 3 per ED documentation, was not a tpa candidate per documentation, had unremarkable CT head, CTA head/neck showed right ICA 70% stenosis and Left ICA < 50% stenosis, TTE showed EF 65%, with normal LA size, MRI brain could not be done due to bladder stimulator, LDL was 32. Has been on ASA/Plavix and Lipitor at baseline since her last stroke. Per patient she lives with her daughter and daughter's BF, uses walker to ambulate, does not drive, has 2 steps going into the house, does not use the basement or the 2nd floor.. Plan -PT for gait stability -OT for ADLs -ST for speech, swallow evaluation and cognitive evaluation. -Analgesics as needed -Bowel protocol -Recent TIA/H/O stroke- on ASA/Plavix and Lipitor, ASA/Plavix was restarted during inpatient hospitalization after urology clearance and per hospitalist recommendations. No bleeding documented, tolerating medication well -Right ICA stenosis of >70% on CTA neck, recommend Vascular surgery consult. -HTN- on Lisinopril, uncontrolled HTN, will add Amlodipine 5 mg PO once daily -HLD- on Lipitor -DM- on Glimepiride, and insulin sliding scale, need better control, will defer to hospitalist -DM neuropathy- on Gabapentin -Has B/L LE swelling- LE venous Doppler reported negative on 06/08/18 -Dementia- on Galantamine and Namenda -Depression- on Lexapro -Fall precautions -DVT prophylaxis- on Lovenox, started after urology clearance from Dr. Brito -Further medical management per hospitalist recommendations Code Visit Inpatient E AND M: 10683 Init Hosp L3 06/28/18 1304 <Electronically signed by Abida Collins MD> Date Abida Collins MD Cosigner Signature: Date (if applicable) CC: Dexter Collins MD; Bakari Ware MD Signed OPERATIVE REPORT Observed: 06/22/2018 Status: F Source: [place] 7:45 AM [facility] REPOSITORY [facility] Medical Records Department [address] [place] [address] Operative Report 06/22/18 0742 MR#: [id number] Acct: [id number] Name: YADI WESTFALL Rep #: [id number] : 1945 72 From: Connor Brito MD PCP: Bakari Ware MD, Chi Status: REG [facility] [place] Location: [place] [address] Report of Operation Date of Procedure: 06/22/18 Pre-Operative Diagnosis: Overactive bladder urge incontinence, failed InterStim therapy stage I Post-Operative Diagnosis: Same Surgery/Procedure Performed:: Stage I InterStim therapy removal Description of Surgical Findings:: 72-year-old female who underwent stage I InterStim therapy implant however successful implant with good response good motor and sensory response however she did not have a good control response of her bladder and she failed the staged 1 implant therefore we will plan to remove the permanent lead. 72-year-old female taken back to the operating room she was placed facedown on the table in a comfortable position hugging a pillow we then prepped and draped the lower back in sterile fashion made in an incision after infiltrating the skin and the small pocket that was created also above the midline sacral area after opening the pocket a few blood clots were removed washed out I then cut the boot off the extension of the lead lead was then pulled out from underneath the drapes we then cut the boot off the permanent lead, I then the lead back to the original insertion site pulled it out straight and then pulled it out of the 3 foramen. After removing the permanent lead and the temporary extension I then washed out the pocket copiously with sterile water making sure the clots are out there is no bleeding I then closed the midline small incision with 2 4-0 Monocryl stitches and then I closed the small pocket with running 3-0 Vicryl and then running 4-0 Monocryl Steri-Strips and dressings were placed on the wounds patient anesthetic was reversed taken back to PACU good condition she will follow-up in a month to 6 weeks to review options we may consider Botox injections. Type of Anesthesia:: General Drains: none - Admit VTE Documentation VTE Present on Admission: No 06/22/18 0745 <Electronically signed by Connor Brito MD> Date Connor Brito MD CC: Connor Brito MD; Bakari Ware MD Signed DISCHARGE INSTRUCTION Observed: 06/22/2018 Status: F Source: [place] 7:21 AM [facility] REPOSITORY [facility] Medical Records Department [address] [place] [address] Instructions for Home/Discharge Instructions 06/22/18719 MR#: [id number] Acct: [id number] Name: YADI WESTFALL Rep #: [id number] : 1945 72 From: Connor Brito MD PCP: Chaz BERG,Bakari Correa Status: REG SDC Discharge Diet: Light diet - advance as tolerated Discharge Activity: Return to Normal Activity Call your doctor if your incision/area has: Sudden Increased Bleeding Call your doctor if you observe: Fever of 101 or Higher Suture Line Care: Avoid Pulling/Pushing, Avoid Pinching/Bending Allergies/Adverse Reactions: Allergies promethazine HCl [From Phenergan] Adverse Reaction (Verified 06/08/18 10:32) Nausea Medications to take at Discharge Escitalopram Oxalate [Lexapro] 20 mg PO QHS 06/14/17 Gabapentin [Neurontin] 200 mg PO TIDCM 06/14/17 Baclofen 20 mg PO TID 06/01/18 Galantamine HBr [Galantamine ER] 24 mg PO DAILY 06/01/18 Memantine HCl 10 mg PO BID 06/08/18 Acetaminophen [Tylenol] 500 mg PO PRN 06/10/18 Aspirin [Aspirin, Baby] 81 mg PO DAILY@0800 06/10/18 Atorvastatin Calcium [Lipitor] 40 mg PO QHS 06/10/18 Clopidogrel Bisulfate [Plavix] 75 mg PO DAILY 06/10/18 Lisinopril [Zestril] 20 mg PO DAILY 06/10/18 Amlodipine [Norvasc] 10 mg PO DAILY #60 tablet 06/20/18 Glimepiride [Amaryl] 2 mg PO DAILY@0800 #60 tablet 06/20/18 Melatonin 3 mg PO QHS tablet 06/20/18 Primary Care Physician: aBkari Ware Chi, MD [Primary Care Provider] - Test Results: Test results from this visit will be discussed in further detail at your follow-up appointment, if applicable. Please Follow Up With: Connor Brito MD When: in 6 weeks, please call to make an appointment. 06/22/18 0721 <Electronically signed by Connor Brito MD> Date Connor Brito MD CC: Bakari Ware MD BEDSIDE GLUCOSE Collected: 06/22/2018 Status: F Source: [place] 6:40 AM [facility] REPOSITORY TYPE CODE TESTS RESULT OUT OF REFERENCE UNITS RANGE LAB L501.080 70-110 mg/dL High BEDSIDE GLU 211 Result Comment: MANAGEMENT OF PATIENT CARE PER NURSING PROTOCOL Performed By: #### L501.080 #### [facility] Point of [facility] [address] [place] [address] BEDSIDE GLUCOSE Collected: 06/21/2018 Status: F Source: [place] 11:37 AM [facility] REPOSITORY TYPE CODE TESTS RESULT OUT OF REFERENCE UNITS RANGE LAB L501.080 70-110 mg/dL High BEDSIDE GLU 233 Result Comment: MANAGEMENT OF PATIENT CARE PER NURSING PROTOCOL Performed By: #### L501.080 #### [facility] Point of Care [address] [facility] [place] [address] DISCHARGE INSTRUCTION Observed: 06/21/2018 Status: F Source: [place] 11:35 AM [facility] REPOSITORY [facility] Medical Records Department [address] [place] [address] [place] [address] Instructions for Home/Discharge Instructions 06/21/18 1007 MR#: [id number] Acct: [id number] Name: YADI WESTFALL Rep #: [id number] : 1945 72 From: Becky Burrows [facility] PCP: Chaz MD,Bakari Chi Status: ADM IN - Discharge Diagnoses Reason(s) for Visit for Discharge Instructions: Debility You will use the following diet at home:: Calorie/Carbohydrate Controlled (specify 1200, 1400, etc) - 2,000, Cardiac Your food should be the consistency of: Regular Your liquids should be the consistency of: Regular/Thin Discharge Activity: May Not Drive, May not drive while taking narcotic pain medications., May Not Shower, Use Walker, - - not soak in a tub or shower until cleared by Urology Weight Bearing Status: Weight bearing as tolerated Call your doctor if your incision/area has: Increased Pain/ Swelling, Increased Redness, Foul Smelling Discharge, Swelling at the incision site Call your doctor if you observe: Fever of 101 or Higher, Coldness, Increased Pain, Numbness or Tingling, Change in Color, Inability to urinate, Inability to have a bowel movement, Using more than one pad per hour, Shortness of breath, Dizziness, Fainting spells, Swelling in the ankles, Chest pain, Prolonged hiccoughing, Increased palpitations (irregular heartbeat), Calf discomfort, Uncontrolled pain Allergies/Adverse Reactions: Allergies promethazine HCl [From Phenergan] Adverse Reaction (Verified 06/08/18 10:32) Nausea Medications to take at Discharge Escitalopram Oxalate [Lexapro] 20 mg PO QHS 06/14/17 Gabapentin [Neurontin] 200 mg PO TIDCM 06/14/17 Baclofen 20 mg PO TID 06/01/18 Galantamine HBr [Galantamine ER] 24 mg PO DAILY 06/01/18 Memantine HCl 10 mg PO BID 06/08/18 Acetaminophen [Tylenol] 500 mg PO PRN 06/10/18 Aspirin [Aspirin, Baby] 81 mg PO DAILY@0800 06/10/18 Atorvastatin Calcium [Lipitor] 40 mg PO QHS 06/10/18 Clopidogrel Bisulfate [Plavix] 75 mg PO DAILY 06/10/18 Lisinopril [Zestril] 20 mg PO DAILY 06/10/18 Amlodipine [Norvasc] 10 mg PO DAILY #60 tablet 06/20/18 Glimepiride [Amaryl] 2 mg PO DAILY@0800 #60 tablet 06/20/18 Melatonin 3 mg PO QHS tablet 06/20/18 The following prescriptions were given: Amlodipine [Norvasc] 10 mg PO DAILY #60 tablet Glimepiride [Amaryl] 2 mg PO DAILY@0800 #60 tablet Primary Care Physician: Bakari Ware Chi, MD [Primary Care Provider] - Test Results: Test results from this visit will be discussed in further detail at your follow-up appointment, if applicable. Please Follow Up With: [facility] Please Follow Up With: Junaid Ware Please Follow Up With: Becky Burrows NP-C - [facility] When: 08/23/18 @ 1:30 Proposed Discharge Date: 06/21/18 06/21/18 1135 <Electronically signed by Becky HALE> Date Becky HALE CC: Rolando Avila MD; Bakari Ware MD DISCHARGE SUMMARY Observed: 06/21/2018 Status: F Source: [place] 11:34 AM [facility] REPOSITORY [facility] Medical Records Department [address] [place] [address] Discharge Summary 06/21/18 0848 MR#: [id number] Acct: [id number] Name: YADI WESTFALL Rep #: [id number] : 1945 72 From: Becky HALE PCP: Bakari Ware MD, Chi Status: ADM IN Location: [place] [address] Rehab Discharge Summary DATE OF ADMISSION: 06/10/18 DATE OF DISCHARGE: 06/21/18 - Rehab Diagnosis Debility - Physical Exam General: Alert, Oriented x3, Cooperative HEENT: Atraumatic, PERRLA, EOMI, Normocephalic Neck: Supple, No JVD, Negative Carotid Bruits Lungs: Clear to auscultation, Normal air movement Cardiovascular: Regular rate, No murmurs Abdomen: Bowel Sounds Present, Soft, Non Tender Extremities: No edema, Capillary Refill Less than 3 Seconds Skin: No rashes, No breakdown Musculoskeletal: No Tenderness to Palpation of Joints or Extremities Neurological: Cranial nerves II-XII grossly intact Psych/Mental Status: Alert and oriented to time, place, person, mood and affect Vital Signs Temp Pulse Resp BP Pulse Ox 98.5 F 74 16 156/81 H 93 06/20/18 18:01 06/20/18 20:30 06/20/18 20:30 06/20/18 18:01 06/20/18 20:30 Oxygen Delivery Method Room Air Weight: 94 kg Body Mass Index (BMI) 36.7 Finger Stick Blood Glucose 221 Intake and Output for Last 24 Hours Intake Total 840 / 840 480 / 480 150 / 150 Balance 840 / 840 480 / 480 150 / 150 POC Glucose POC Glucose 155 H 263 H 192 H POC Glucose 270 H Active Medications Acetaminophen (Tylenol) 500 mg PO Q8H PRN PRN PRN Reason: PAIN Last Admin: 06/12/18 21:15 Dose: 500 mg Amlodipine Besylate (Norvasc) 10 mg PO DAILY [facility] Last Admin: 06/21/18 08:36 Dose: 10 mg Aspirin (Aspirin, Baby) 81 mg PO DAILY@0800 [facility] Last Admin: 06/21/18 08:36 Dose: 81 mg Atorvastatin Calcium (Lipitor) 40 mg PO QHS [facility] Last Admin: 06/20/18 20:43 Dose: 40 mg Baclofen (Lioresal) 20 mg PO TID [facility] Last Admin: 06/21/18 05:40 Dose: 20 mg Bisacodyl (Dulcolax) 10 mg RECTAL .PRN X 1 PRN PRN Reason: Constipation Clopidogrel Bisulfate (Plavix) 75 mg PO DAILY [facility] Last Admin: 06/21/18 08:36 Dose: 75 mg Enoxaparin Sodium (Lovenox) 40 mg SC DAILY@0600 [facility] Last Admin: 06/21/18 08:44 Dose: Not Given Escitalopram Oxalate (Lexapro) 20 mg PO QHS [facility] Last Admin: 06/20/18 20:42 Dose: 20 mg Gabapentin (Neurontin) 200 mg PO TIDCM [facility] Last Admin: 06/21/18 08:36 Dose: 200 mg Galantamine Hydrobromide (Razadyne) 12 mg PO BID [facility] Last Admin: 06/21/18 08:35 Dose: 12 mg Glimepiride (Amaryl) 2 mg PO DAILY@0800 [facility] Last Admin: 06/21/18 08:36 Dose: 2 mg Insulin Human Lispro (Humalog Kwikpen (Bkc)) 0 unit SC ACHS [facility]; Protocol Last Admin: 06/21/18 08:36 Dose: 1 u Lisinopril (Zestril) 20 mg PO DAILY [facility] Last Admin: 06/21/18 08:36 Dose: 20 mg Magnesium Hydroxide (Milk Of Magnesia) 30 ml PO .PRN X 1 PRN PRN Reason: Constipation Melatonin (Melatonin) 3 mg PO QHS [facility] Last Admin: 06/20/18 20:44 Dose: 3 mg Memantine (Namenda) 10 mg PO BID [facility] Last Admin: 06/21/18 08:36 Dose: 10 mg Polyethylene Glycol (Miralax) 17 gm PO BID [facility] Last Admin: 06/21/18 05:39 Dose: Not Given Senna/Docusate Sodium (Senokot-S, Courtney-Colace) 2 tablet PO BID [facility] Last Admin: 06/21/18 05:40 Dose: Not Given Discharge Diet: 1999 Calorie Control Diet, Carb Control Diet Discharge Activity: May Not Drive, Use Walker, - - not soak in a tub or shower until cleared by Urology Weight Bearing Status: Weight bearing as tolerated Call your doctor if your incision/area has: Increased Pain/ Swelling, Increased Redness, Foul Smelling Discharge, Swelling at the incision site Call your doctor if you observe: Fever of 101 or Higher, Coldness, Increased Pain, Numbness or Tingling, Change in Color, Inability to urinate, Inability to have a bowel movement, Using more than one pad per hour, Shortness of breath, Dizziness, Fainting spells, Swelling in the ankles, Chest pain, Prolonged hiccoughing, Increased palpitations (irregular heartbeat), Calf discomfort, Uncontrolled pain Home Medications: Medications to take at Discharge Escitalopram Oxalate [Lexapro] 20 mg PO QHS 06/14/17 Gabapentin [Neurontin] 200 mg PO TIDCM 06/14/17 Baclofen 20 mg PO TID 06/01/18 Galantamine HBr [Galantamine ER] 24 mg PO DAILY 06/01/18 Memantine HCl 10 mg PO BID 06/08/18 Acetaminophen [Tylenol] 500 mg PO PRN 06/10/18 Aspirin [Aspirin, Baby] 81 mg PO DAILY@0800 06/10/18 Atorvastatin Calcium [Lipitor] 40 mg PO QHS 06/10/18 Clopidogrel Bisulfate [Plavix] 75 mg PO DAILY 06/10/18 Lisinopril [Zestril] 20 mg PO DAILY 06/10/18 Amlodipine [Norvasc] 10 mg PO DAILY #60 tablet 06/20/18 Glimepiride [Amaryl] 2 mg PO DAILY@0800 #60 tablet 06/20/18 Melatonin 3 mg PO QHS tablet 06/20/18 Following Prescrptions Were Given to Patient: Amlodipine [Norvasc] 10 mg PO DAILY #60 tablet Glimepiride [Amaryl] 2 mg PO DAILY@0800 #60 tablet Primary Care Physician: Bakari Ware Chi, MD [Primary Care Provider] - Please Follow Up With: [facility] Please Follow Up With: Becky Burrows NP-C - [facility] When: 08/23/18 @ 1:30 Disposition: Home with Home Health Minutes spent on discharge:: 40 Patient Condition:: Good Rehab Course The patient is a 72 year old CF with PMH HTN, HLD, DM, DM neuropathy H/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 Patient was admitted to [facility] with right facial droop and slurred speech on 06/08/18 following bladder stimulator placement by Dr. Brito on 06/08/18, had NIHSS of 3 per ED documentation, was not a tpa candidate per documentation, had unremarkable CT head, CTA head/neck showed right ICA 70% stenosis and Left ICA < 50% stenosis, TTE showed EF 65%, with normal LA size, MRI brain could not be done due to bladder stimulator, LDL was 32. Has been on ASA/Plavix and Lipitor at baseline since her last stroke. Per patient she lives with her daughter and daughter's BF, uses walker to ambulate, does not drive, has 2 steps going into the house, does not use the basement or the 2nd floor. While in the Rehab unit her medical conditions were monitored. During her stay she had bilateral lower extremity swelling and pain, Dollar showed no acute DVT. The rest of her stay was uncomplicated and she was able to discharge home on 06/21/18 to complete the remainder of her care as an outpatient. Summary of Care: -PT for gait stability -OT for ADLs -ST for speech, swallow evaluation and cognitive evaluation. -Analgesics as needed -Bowel protocol -Recent TIA/H/O stroke- on ASA/Plavix and Lipitor, ASA/Plavix was restarted during inpatient hospitalization after urology clearance and per hospitalist recommendations. No bleeding documented, tolerating medication well -HTN- on Lisinopril, uncontrolled HTN, will add Amlodipine 5 mg PO once daily -HLD- on Lipitor -DM- on Glimepiride, and insulin sliding scale, need better control, will defer to hospitalist -DM neuropathy- on Gabapentin -Has B/L LE swelling- LE venous Doppler reported negative on 06/08/18 -Dementia- on Galantamine and Namenda -Depression- on Lexapro -Fall precautions -DVT prophylaxis- on Lovenox, started after urology clearance from Dr. Brito -Further medical management per hospitalist recommendations - Left sided swelling and discomfort -> ordered Doppler of upper and lower extremity - No showering until follow up in Dr. Brito's office. - Plan is to discharge home tomorrow with family and home health - PT/OT/SN and all follow up appointments. Summary of Therapy Sessions: With Physical therapy, she is able to walk about 50 feet with a walker at contact guard. She has gone up and down 5 steps using 2 hand rails with a light hand for balance. With Occupational therapy, she is able to do her personal care and grooming while sitting at set up level. She is able to bath her upper body with out assistance, but requires max assist with her lower body. With nursing, pain is well controlled, she is still having episodes of incontinence. The family noted her bladder stimulator is off contacted Urology. Dr. Brito remotely turned off the stimulator. She is Scheduled to have the Stimulator removed on Wednesday06/22/[address] Brito. Meaningful Use Info Meaningful Use Diagnoses (Choose all that apply): Ischemic CVA - CVA Therapy Assessed for PT,OT and/or ST?: Yes - Ischemic Stroke Antithrombotic order at d/c?: Yes Dx of Atrial fib/flutter?: No Anticoagulant at discharge?: Yes Statins at discharge?: Yes Primary Dx Acute Ischemic CVA?: Yes IV tPA ordered during stay?: No Reason IV t-PA not ordered: Medical Contraindication 06/21/18 1134 <Electronically signed by Becky Burrows [facility]> Date Becky Burrows [facility] 06/21/18 1025<Electronically signed by Musa Llamas MD> Cosigner Signature (if applicable): Date Musa Llamas MD CC: [facility] Becky Burrows; Musa Llamas MD; Bakari Ware MD Signed BEDSIDE GLUCOSE Collected: 06/21/2018 Status: F Source: [place] 6:27 AM [facility] REPOSITORY TYPE CODE TESTS RESULT OUT OF REFERENCE UNITS RANGE LAB L501.080 70-110 mg/dL High BEDSIDE GLU 155 Result Comment: MANAGEMENT OF PATIENT CARE PER NURSING PROTOCOL Performed By: #### L501.080 #### [facility] Point of Care [address] [place] [address] BEDSIDE GLUCOSE Collected: 06/20/2018 Status: F Source: [place] 9:20 PM [facility] REPOSITORY TYPE CODE TESTS RESULT OUT OF REFERENCE UNITS RANGE LAB L501.080 70-110 mg/dL High BEDSIDE GLU 263 Result Comment: MANAGEMENT OF PATIENT CARE PER NURSING PROTOCOL Performed By: #### L501.080 #### [facility] Point of Care [address] [place] [address] BEDSIDE GLUCOSE Collected: 06/20/2018 Status: F Source: [place] 4:46 PM [facility] REPOSITORY TYPE CODE TESTS RESULT OUT OF REFERENCE UNITS RANGE LAB L501.080 70-110 mg/dL High BEDSIDE GLU 192 Result Comment: MANAGEMENT OF PATIENT CARE PER NURSING PROTOCOL Performed By: #### L501.080 #### [facility] Point of Care [address] [place] [address] BEDSIDE GLUCOSE Collected: 06/20/2018 Status: F Source: [place] 11:33 AM [facility] REPOSITORY TYPE CODE TESTS RESULT OUT OF REFERENCE UNITS RANGE LAB L501.080 70-110 mg/dL High BEDSIDE GLU 270 Result Comment: MANAGEMENT OF PATIENT CARE PER NURSING PROTOCOL Performed By: #### L501.080 #### [facility] Point of Care [address] [place] [address] BEDSIDE GLUCOSE Collected: 06/20/2018 Status: F Source: [place] 6:40 AM [facility] REPOSITORY TYPE CODE TESTS RESULT OUT OF REFERENCE UNITS RANGE LAB L501.080 70-110 mg/dL High BEDSIDE GLU 183 Result Comment: MANAGEMENT OF PATIENT CARE PER NURSING PROTOCOL Performed By: #### L501.080 #### [facility] Point of Care [address] [place] [address] BEDSIDE GLUCOSE Collected: 06/19/2018 Status: F Source: [place] 10:46 PM [facility] REPOSITORY TYPE CODE TESTS RESULT OUT OF REFERENCE UNITS RANGE LAB L501.080 70-110 mg/dL High BEDSIDE GLU 300 Result Comment: MANAGEMENT OF PATIENT CARE PER NURSING PROTOCOL Performed By: #### L501.080 #### [facility] Point of Care [address] [place] [address] BEDSIDE GLUCOSE Collected: 06/19/2018 Status: F Source: [place] 4:24 PM [facility] REPOSITORY TYPE CODE TESTS RESULT OUT OF REFERENCE UNITS RANGE LAB L501.080 70-110 mg/dL High BEDSIDE GLU 266 Result Comment: MANAGEMENT OF PATIENT CARE PER NURSING PROTOCOL Performed By: #### L501.080 #### [facility] Point of Care [address] [place] [address] BEDSIDE GLUCOSE Collected: 06/19/2018 Status: F Source: [place] 11:04 AM [facility] REPOSITORY TYPE CODE TESTS RESULT OUT OF REFERENCE UNITS RANGE LAB L501.080 70-110 mg/dL High BEDSIDE GLU 300 Result Comment: MANAGEMENT OF PATIENT CARE PER NURSING PROTOCOL Performed By: #### L501.080 #### [facility] Point of Care [address] [place] [address] BEDSIDE GLUCOSE Collected: 06/19/2018 Status: F Source: [place] 6:39 AM [facility] REPOSITORY TYPE CODE TESTS RESULT OUT OF REFERENCE UNITS RANGE LAB L501.080 70-110 mg/dL High BEDSIDE GLU 205 Result Comment: MANAGEMENT OF PATIENT CARE PER NURSING PROTOCOL Performed By: #### L501.080 #### [facility] Point of Care [address] [place] [address] BEDSIDE GLUCOSE Collected: 06/18/2018 Status: F Source: [place] 8:53 PM [facility] REPOSITORY TYPE CODE TESTS RESULT OUT OF REFERENCE UNITS RANGE LAB L501.080 70-110 mg/dL High BEDSIDE GLU 209 Result Comment: MANAGEMENT OF PATIENT CARE PER NURSING PROTOCOL Performed By: #### L501.080 #### [facility] Point of Care [address] [place] [address] BEDSIDE GLUCOSE Collected: 06/18/2018 Status: F Source: [place] 4:08 PM [facility] REPOSITORY TYPE CODE TESTS RESULT OUT OF REFERENCE UNITS RANGE LAB L501.080 70-110 mg/dL High BEDSIDE GLU 247 Result Comment: MANAGEMENT OF PATIENT CARE PER NURSING PROTOCOL Performed By: #### L501.080 #### [facility] Point of Care [address] [place] [address] BEDSIDE GLUCOSE Collected: 06/18/2018 Status: F Source: [place] 11:01 AM [facility] REPOSITORY TYPE CODE TESTS RESULT OUT OF REFERENCE UNITS RANGE LAB L501.080 70-110 mg/dL High BEDSIDE GLU 317 Result Comment: MANAGEMENT OF PATIENT CARE PER NURSING PROTOCOL Performed By: #### L501.080 #### [facility] Point of Care [address] [place] [address] BEDSIDE GLUCOSE Collected: 06/18/2018 Status: F Source: [place] 6:52 AM [facility] REPOSITORY TYPE CODE TESTS RESULT OUT OF REFERENCE UNITS RANGE LAB L501.080 70-110 mg/dL High BEDSIDE GLU 200 Result Comment: MANAGEMENT OF PATIENT CARE PER NURSING PROTOCOL Performed By: #### L501.080 #### [facility] Point of Care [address] [place] [address] BEDSIDE GLUCOSE Collected: 06/17/2018 Status: F Source: [place] 9:05 PM [facility] REPOSITORY TYPE CODE TESTS RESULT OUT OF REFERENCE UNITS RANGE LAB L501.080 70-110 mg/dL High BEDSIDE GLU 274 Result Comment: MANAGEMENT OF PATIENT CARE PER NURSING PROTOCOL Performed By: #### L501.080 #### [facility] Point of Care [address] [place] [address] BEDSIDE GLUCOSE Collected: 06/17/2018 Status: F Source: [place] 4:34 PM [facility] REPOSITORY TYPE CODE TESTS RESULT OUT OF REFERENCE UNITS RANGE LAB L501.080 70-110 mg/dL High BEDSIDE GLU 229 Result Comment: MANAGEMENT OF PATIENT CARE PER NURSING PROTOCOL Performed By: #### L501.080 #### [facility] Point of Care [address] [place] [address] BEDSIDE GLUCOSE Collected: 06/17/2018 Status: F Source: [place] 11:32 AM [facility] REPOSITORY TYPE CODE TESTS RESULT OUT OF REFERENCE UNITS RANGE LAB L501.080 70-110 mg/dL High BEDSIDE GLU 230 Result Comment: MANAGEMENT OF PATIENT CARE PER NURSING PROTOCOL Performed By: #### L501.080 #### [facility] Point of Care [address] [place] [address] VENOUS DUPLEX UPPER Observed: 06/17/2018 Status: F Source: [place] EXTREMITY 7:30 AM [facility] REPOSITORY [facility] Cardiovascular Services [address] [place] [address] Venous Duplex US - Dean Extrem 06/13/18 1408 MR#: [id number] Acct: [id number] Name: YADI WESTFALL Rep #: [id number] : 1945 72 From: Luiz Simon MD Attending Dr: Jaydon Olivas DO Status: ADM IN Ordering Dr: Abida Collins MD Date: 06/11/18 Location: RU Sex: F C Admitted: 06/10/18 Reason For Study: LUE swelling Left Proximal Left jugular vein is spontaneous, widely patent, phasic, with no intraluminal echogenicity noted. Left subclavian vein is spontaneous, widely patent, phasic, with no intraluminal echogenicity noted. Left Arm Left axillary vein is spontaneous, patent, phasic, competent, compressible and demonstrates augmentation. Left brachial vein is compressible. Left cephalic vein is compressible. Left basilic vein is compressible. Left Lower Arm Left radial vein is compressible. Left ulnar vein is compressible. Interpretation Summary Deep veins of the left upper extremity are patent and compressible segmentally. There is no evidence of deep vein thrombosis. The superficial veins of the left upper extremity, the basilic and cephalic veins, are patent and compressible. There is no evidence of left upper extremity superficial thrombophlebitis involving the veins imaged. Ordering Physician: Becky Burrows Referring Physician: Bakari Ware Chi Performed By: Lorrie Orellana RDCS, RVT ? 06/17/18728 Date Luiz Simon MD CC: Dexter Collins MD; Jaydon Olivas DO; Bakari Ware MD Date Dictated: 06/13/18 1408 Date Transcribed: 06/17/18728 Swing Grinder: Signed VENOUS DUPLEX LOWER Observed: 06/17/2018 Status: F Source: [place] EXTREMITY 7:07 AM [facility] REPOSITORY [facility] Cardiovascular Services [address] [place] [address] Venous Duplex US, Unilateral 06/13/18 1352 MR#: [id number] Acct: [id number] Name: YADI WESTFALL Rep #: [id number] : 1945 72 From: uLiz Simon MD Attending Dr: Jaydon Olivas DO Status: ADM IN Ordering Dr: Becky Burrows Date: 06/13/18 Location: Sex: F C Admitted: 06/10/18 Reason For Study: swelling RIGHT LEFT GSV is normal. GSV is normal. CFV is compressible, spontaneous, phasic, CFV is compressible, spontaneous, phasic, competent and demonstrates normal competent, and demonstrates normal augmentation. augmentation. FV is compressible, spontaneous, phasic, FV is compressible, spontaneous, phasic, competent and demonstrates normal competent and demonstrates normal augmentation. augmentation. POP V is compressible, spontaneous, phasic, POP V is compressible, spontaneous, phasic, competent and demonstrates normal competent and demonstrates normal augmentation. augmentation. T/P Trunk is compressible. T/P Trunk is compressible. PTV is compressible. PTV is compressible. Unable to visulaize/assess RT PERV. LT PerV is compressible. Procedure Exam performed portable in patient room. The exam was diagnostic. The study was technically difficult. A preliminary report was called and/or faxed to PT's RN AND Inpatient Rehab Unit. <> Interpretation Summary Deep veins of the lower extremities are bilaterally patent and compressible segmentally. There is no evidence of deep vein thrombosis on either side. Valvular competence appears intact within the proximal deep venous systems bilaterally. The greater saphenous veins appear bilaterally patent and compressible segmentally. The right peroneal vein was not visualized. Ordering Physician: Dexter Collins MD Referring Physician: Bakari Ware Chi Performed By: Lorrie Orellana, DAVID, RVT 06/17/18706 Date Luiz Simon MD CC: NGA Burrows; Jaydon Olivas DO; Bakari Ware MD Date Dictated: 06/13/18 1352 Date Transcribed: 06/17/18706 Swing Grinder: Signed BEDSIDE GLUCOSE Collected: 06/17/2018 Status: F Source: [place] 6:59 AM [facility] REPOSITORY TYPE CODE TESTS RESULT OUT OF REFERENCE UNITS RANGE LAB L501.080 70-110 mg/dL High BEDSIDE GLU 190 Result Comment: MANAGEMENT OF PATIENT CARE PER NURSING PROTOCOL Performed By: #### L501.080 #### [facility] Point of Care [address] [place] [address] BEDSIDE GLUCOSE Collected: 06/16/2018 Status: F Source: [place] 9:21 PM [facility] REPOSITORY TYPE CODE TESTS RESULT OUT OF REFERENCE UNITS RANGE LAB L501.080 70-110 mg/dL High BEDSIDE GLU 262 Result Comment: MANAGEMENT OF PATIENT CARE PER NURSING PROTOCOL Performed By: #### L501.080 #### [facility] Point of Care [address] [place] [address] BEDSIDE GLUCOSE Collected: 06/16/2018 Status: F Source: [place] 5:04 PM [facility] REPOSITORY TYPE CODE TESTS RESULT OUT OF REFERENCE UNITS RANGE LAB L501.080 70-110 mg/dL High BEDSIDE GLU 247 Result Comment: MANAGEMENT OF PATIENT CARE PER NURSING PROTOCOL Performed By: #### L501.080 #### [facility] Point of Care [address] [place] [address] BEDSIDE GLUCOSE Collected: 06/16/2018 Status: F Source: [place] 11:37 AM [facility] REPOSITORY TYPE CODE TESTS RESULT OUT OF REFERENCE UNITS RANGE LAB L501.080 70-110 mg/dL High BEDSIDE GLU 266 Result Comment: MANAGEMENT OF PATIENT CARE PER NURSING PROTOCOL Performed By: #### L501.080 #### [facility] Point of Care [address] [place] [address] BEDSIDE GLUCOSE Collected: 06/16/2018 Status: F Source: [place] 6:31 AM [facility] REPOSITORY TYPE CODE TESTS RESULT OUT OF REFERENCE UNITS RANGE LAB L501.080 70-110 mg/dL High BEDSIDE GLU 172 Result Comment: MANAGEMENT OF PATIENT CARE PER NURSING PROTOCOL Performed By: #### L501.080 #### [facility] Point of Care [address] [place] [address] BEDSIDE GLUCOSE Collected: 06/15/2018 Status: F Source: [place] 11:13 PM [facility] REPOSITORY TYPE CODE TESTS RESULT OUT OF REFERENCE UNITS RANGE LAB L501.080 70-110 mg/dL High BEDSIDE GLU 275 Result Comment: MANAGEMENT OF PATIENT CARE PER NURSING PROTOCOL Performed By: #### L501.080 #### [facility] Point of Care [address] [place] [address] BEDSIDE GLUCOSE Collected: 06/15/2018 Status: F Source: [place] 4:09 PM [facility] REPOSITORY TYPE CODE TESTS RESULT OUT OF REFERENCE UNITS RANGE LAB L501.080 70-110 mg/dL High BEDSIDE GLU 202 Result Comment: MANAGEMENT OF PATIENT CARE PER NURSING PROTOCOL Performed By: #### L501.080 #### [facility] Point of Care [address] [place] [address] BEDSIDE GLUCOSE Collected: 06/15/2018 Status: F Source: [place] 11:56 AM [facility] REPOSITORY TYPE CODE TESTS RESULT OUT OF REFERENCE UNITS RANGE LAB L501.080 70-110 mg/dL High BEDSIDE GLU 179 Result Comment: MANAGEMENT OF PATIENT CARE PER NURSING PROTOCOL Performed By: #### L501.080 #### [facility] Point of Care [address] [place] [address] BEDSIDE GLUCOSE Collected: 06/15/2018 Status: F Source: [place] 7:23 AM [facility] REPOSITORY TYPE CODE TESTS RESULT OUT OF REFERENCE UNITS RANGE LAB L501.080 70-110 mg/dL High BEDSIDE GLU 179 Result Comment: MANAGEMENT OF PATIENT CARE PER NURSING PROTOCOL Performed By: #### L501.080 #### [facility] Point of Care [address] [place] [address] BEDSIDE GLUCOSE Collected: 06/14/2018 Status: F Source: [place] 9:47 PM [facility] REPOSITORY TYPE CODE TESTS RESULT OUT OF REFERENCE UNITS RANGE LAB L501.080 70-110 mg/dL High BEDSIDE GLU 231 Result Comment: MANAGEMENT OF PATIENT CARE PER NURSING PROTOCOL Performed By: #### L501.080 #### [facility] Point of Care [address] [place] [address] BEDSIDE GLUCOSE Collected: 06/14/2018 Status: F Source: [place] 4:59 PM [facility] REPOSITORY TYPE CODE TESTS RESULT OUT OF REFERENCE UNITS RANGE LAB L501.080 70-110 mg/dL High BEDSIDE GLU 214 Result Comment: MANAGEMENT OF PATIENT CARE PER NURSING PROTOCOL Performed By: #### L501.080 #### [facility] Point of Care [address] [place] [address] 12 LEAD ELECTROCARDIOGRAM Observed: 06/14/2018 Status: F Source: [place] 3:49 PM [facility] REPOSITORY [facility] Cardiovascular Services [address] [place] [address] 12 Lead EKG 06/09/18 1727 MR#: [id number] Acct: [id number] Name: YADI WESTFALL Rep #: [id number] : 1945 72 From: Bj Matute MD Attending Dr: Rolando Avila MD Status: DIS MAGALIE Ordering Dr: Rolando Avila MD Date: 06/09/18 Location: U Sex: F C Admitted: 06/08/18 Test Reason : Blood Pressure : / mmHG Vent. Rate : 095 BPM Atrial Rate : 095 BPM P-R Int : 216 ms QRS Dur : 134 ms QT Int : 402 ms P-R-T Axes : 055 -71 012 degrees QTc Int : 505 ms Sinus rhythm with 1st degree A-V block Left axis deviation Right bundle branch block Abnormal ECG Confirmed by JUJU BERG, BJ ([id number]), slot editor SAHARA TIPTON ([id number]) on 06/14/2018 3:48:29 PM Referred By: ELROY Confirmed By:BJ MATUTE MD 06/14/18 1548 Date Bj Matute MD CC: Rolando Avila MD; Bakari Ware MD Signed BEDSIDE GLUCOSE Collected: 06/14/2018 Status: F Source: [place] 11:36 AM [facility] REPOSITORY TYPE CODE TESTS RESULT OUT OF REFERENCE UNITS RANGE LAB L501.080 70-110 mg/dL High BEDSIDE GLU 152 Result Comment: MANAGEMENT OF PATIENT CARE PER NURSING PROTOCOL Performed By: #### L501.080 #### [facility] Point of Care [address] [place] [address] BEDSIDE GLUCOSE Collected: 06/14/2018 Status: F Source: [place] 7:02 AM [facility] REPOSITORY TYPE CODE TESTS RESULT OUT OF REFERENCE UNITS RANGE LAB L501.080 70-110 mg/dL High BEDSIDE GLU 181 Result Comment: MANAGEMENT OF PATIENT CARE PER NURSING PROTOCOL Performed By: #### L501.080 #### [facility] Point of Care [address] [place] [address] BEDSIDE GLUCOSE Collected: 06/13/2018 Status: F Source: [place] 9:43 PM [facility] REPOSITORY TYPE CODE TESTS RESULT OUT OF REFERENCE UNITS RANGE LAB L501.080 70-110 mg/dL High BEDSIDE GLU 245 Result Comment: MANAGEMENT OF PATIENT CARE PER NURSING PROTOCOL Performed By: #### L501.080 #### [facility] Point of Care [address] [place] [address] BEDSIDE GLUCOSE Collected: 06/13/2018 Status: F Source: [place] 5:08 PM [facility] REPOSITORY TYPE CODE TESTS RESULT OUT OF REFERENCE UNITS RANGE LAB L501.080 70-110 mg/dL High BEDSIDE GLU 130 Result Comment: MANAGEMENT OF PATIENT CARE PER NURSING PROTOCOL Performed By: #### L501.080 #### [facility] Point of Care [address] [place] [address] BEDSIDE GLUCOSE Collected: 06/13/2018 Status: F Source: [place] 11:37 AM [facility] REPOSITORY TYPE CODE TESTS RESULT OUT OF REFERENCE UNITS RANGE LAB L501.080 70-110 mg/dL High BEDSIDE GLU 166 Result Comment: MANAGEMENT OF PATIENT CARE PER NURSING PROTOCOL Performed By: #### L501.080 #### [facility] Point of Care [address] [place] [address] BEDSIDE GLUCOSE Collected: 06/13/2018 Status: F Source: [place] 6:31 AM [facility] REPOSITORY TYPE CODE TESTS RESULT OUT OF REFERENCE UNITS RANGE LAB L501.080 70-110 mg/dL High BEDSIDE GLU 169 Result Comment: MANAGEMENT OF PATIENT CARE PER NURSING PROTOCOL Performed By: #### L501.080 #### [facility] Point of Care [address] [place] [address] BEDSIDE GLUCOSE Collected: 06/12/2018 Status: F Source: [place] 8:16 PM [facility] REPOSITORY TYPE CODE TESTS RESULT OUT OF REFERENCE UNITS RANGE LAB L501.080 70-110 mg/dL High BEDSIDE GLU 201 Result Comment: MANAGEMENT OF PATIENT CARE PER NURSING PROTOCOL Performed By: #### L501.080 #### [facility] Point of Care [address] [place] [address] BEDSIDE GLUCOSE Collected: 06/12/2018 Status: F Source: [place] 4:31 PM [facility] REPOSITORY TYPE CODE TESTS RESULT OUT OF REFERENCE UNITS RANGE LAB L501.080 70-110 mg/dL High BEDSIDE GLU 187 Result Comment: MANAGEMENT OF PATIENT CARE PER NURSING PROTOCOL Performed By: #### L501.080 #### [facility] Point of Care [address] [place] [address] BEDSIDE GLUCOSE Collected: 06/12/2018 Status: F Source: [place] 12:06 PM [facility] REPOSITORY TYPE CODE TESTS RESULT OUT OF REFERENCE UNITS RANGE LAB L501.080 70-110 mg/dL High BEDSIDE GLU 194 Result Comment: MANAGEMENT OF PATIENT CARE PER NURSING PROTOCOL Performed By: #### L501.080 #### [facility] Point of Care [address] [place] [address] BEDSIDE GLUCOSE Collected: 06/12/2018 Status: F Source: [place] 6:38 AM [facility] REPOSITORY TYPE CODE TESTS RESULT OUT OF REFERENCE UNITS RANGE LAB L501.080 70-110 mg/dL High BEDSIDE GLU 156 Result Comment: MANAGEMENT OF PATIENT CARE PER NURSING PROTOCOL Performed By: #### L501.080 #### [facility] Point of Care [address] [place] [address] BEDSIDE GLUCOSE Collected: 06/11/2018 Status: F Source: [place] 11:02 PM [facility] REPOSITORY TYPE CODE TESTS RESULT OUT OF REFERENCE UNITS RANGE LAB L501.080 70-110 mg/dL High BEDSIDE GLU 212 Result Comment: MANAGEMENT OF PATIENT CARE PER NURSING PROTOCOL Performed By: #### L501.080 #### [facility] Point of Care [address] [place] [address] BEDSIDE GLUCOSE Collected: 06/11/2018 Status: F Source: [place] 8:18 PM [facility] REPOSITORY TYPE CODE TESTS RESULT OUT OF REFERENCE UNITS RANGE LAB L501.080 70-110 mg/dL High BEDSIDE GLU 228 Result Comment: MANAGEMENT OF PATIENT CARE PER NURSING PROTOCOL Performed By: #### L501.080 #### [facility] Point of Care [address] [place] [address] BEDSIDE GLUCOSE Collected: 06/11/2018 Status: F Source: [place] 4:59 PM [facility] REPOSITORY TYPE CODE TESTS RESULT OUT OF REFERENCE UNITS RANGE LAB L501.080 70-110 mg/dL High BEDSIDE GLU 220 Result Comment: MANAGEMENT OF PATIENT CARE PER NURSING PROTOCOL Performed By: #### L501.080 #### [facility] Point of Care [address] [place] [address] BEDSIDE GLUCOSE Collected: 06/11/2018 Status: F Source: [place] 11:41 AM [facility] REPOSITORY TYPE CODE TESTS RESULT OUT OF REFERENCE UNITS RANGE LAB L501.080 70-110 mg/dL High BEDSIDE GLU 306 Result Comment: MANAGEMENT OF PATIENT CARE PER NURSING PROTOCOL Performed By: #### L501.080 #### [facility] Point of Care [address] [place] [address] CBC W/DIFF, AUTOMATED Collected: 06/11/2018 Status: F Source: [place] 7:40 AM [facility] REPOSITORY TYPE CODE TESTS RESULT OUT OF RANGE REFERENCE UNITS LAB L100.1000 4.4-11.0 K/mm3 Normal WBC 6.4 LAB L100.1200 4.2-5.4 M/mm3 Normal RBC 4.32 LAB L100.1300 12.0-15.0 g/dl Normal HGB 12.7 LAB L100.1400 37-47 % Normal HCT 38.8 LAB L100.1500 81-99 fL Normal MCV 89.8 LAB L100.1600 27.0-32.0 pg Normal MCH 29.4 LAB L100.1700 32-36 g/gl Normal MCHC 32.7 LAB L100.1810 11.6-14.6 % Normal RDW CV 12.8 LAB L100.1820 35.1-43.9 fl Normal RDW SD 42.2 LAB L100.1900 150-450 K/mm3 Normal PLT 191 LAB L100.2000 6.2-12.0 fl Normal MPV 11.1 LAB L100.2100 47-70 % Normal NEUT% 63.3 LAB L100.2200 19-41 % Normal LY% 28.8 LAB L100.2300 0-10 % Normal MONO% 4.7 LAB L100.2400 0-5 % Normal EO% 2.8 LAB L100.2500 0-1 % Normal BASO% 0.2 LAB L100.2550 0.0-0.9 % Normal IM GRAN % 0.200 Result Comment: IG% - Immature Granulocytes (promyelocytes, myelocytes and metamyelocytes) > 1% indicates that a LEFT SHIFT is Present. LAB L100.2620 2.0-7.7 X10 3/uL Normal Absolute Neut 4.0 LAB L100.2720 0.83-4.51 X10 3/ul Normal Absolute Lymph 1.84 Performed By: #### L100.0100 #### [facility] [address] [place], [place], [id number] COMPREHENSIVE METABOLIC Collected: 06/11/2018 Status: F Source: [place] HER 7:40 AM [facility] REPOSITORY TYPE CODE TESTS RESULT OUT OF RANGE REFERENCE UNITS LAB L501.0100 74-106 mg/dL High GLU 211 Result Comment: Glucose result greater than or equal to 200 mg/dL suggests DIABETES MELLITUS per A.D.A. criteria. Please note revised GLUCOSE reference range effective 2017. LAB L501.1000 7-18 mg/dL High BUN 22 LAB L501.1100 0.55-1.02 mg/dL Normal CREAT,SERUM 0.88 Result Comment: The validity of the calculated GFR AND GFRAA in patients over 70 years has not been determined. Clinical correlation is essential. LAB L501.1110 >60 mL/min Normal EST GFR 67 Result Comment: Non- GFR Calc LAB L501.1115 >60 mL/min Normal EST GFR - AA 81 Result Comment: GFR Calc LAB L501.1255 ml/min Normal Estimated CRCL 47.80 LAB L501.1300 10-20 RATIO High BUN/CRE 24.9 LAB L501.1500 6.4-8. g/dL Normal 2 T PROT 6.4 LAB L501.1800 3.2-5. g/dL Low 0 ALB 2.8 LAB L501.1950 2.2-4. g/dL Normal 2 GLOB 3.6 LAB L501.2000 0.9-2. RATIO Low 4 A/G 0.8 LAB L501.2200 8.5-10 mg/dL Low .1 CA 8.4 LAB L501.4100 15-37 U/L Normal AST 19 LAB L501.4305 45-117 U/L Normal ALK P 52 LAB L501.4405 13-56 U/L Normal ALT 23 LAB L501.4600 0.20-1 mg/dL Normal .00 T BILI 0.60 LAB L501.5300 136-14 mmol/L Normal 5 NA 141 LAB L501.5600 3.5-5. mmol/L Normal 1 K 3.5 LAB L501.5900 98-107 mmol/L Normal CL 101 LAB L501.6100 21.0-3 mmol/L Normal 2.0 CO2 32.0 LAB L501.6200 5-15 Normal GAP 8 Performed By: #### L500.4050 #### [facility] [address] [place], [address] BEDSIDE GLUCOSE Collected: 06/11/2018 Status: F Source: [place] 7:08 AM [facility] REPOSITORY TYPE CODE TESTS RESULT OUT OF REFERENCE UNITS RANGE LAB L501.080 70-110 mg/dL High BEDSIDE GLU 206 Result Comment: MANAGEMENT OF PATIENT CARE PER NURSING PROTOCOL Performed By: #### L501.080 #### [facility] Point of Care [address] [place] [address] BEDSIDE GLUCOSE Collected: 06/10/2018 Status: F Source: [place] 8:25 PM [facility] REPOSITORY TYPE CODE TESTS RESULT OUT OF REFERENCE UNITS RANGE LAB L501.080 70-110 mg/dL High BEDSIDE GLU 306 Result Comment: MANAGEMENT OF PATIENT CARE PER NURSING PROTOCOL Performed By: #### L501.080 #### [facility] Point of Care [address] [place] [address] BEDSIDE GLUCOSE Collected: 06/10/2018 Status: F Source: [place] 4:41 PM [facility] REPOSITORY TYPE CODE TESTS RESULT OUT OF REFERENCE UNITS RANGE LAB L501.080 70-110 mg/dL High BEDSIDE GLU 284 Result Comment: MANAGEMENT OF PATIENT CARE PER NURSING PROTOCOL Performed By: #### L501.080 #### [facility] Point of Care [address] [place] [address] DISCHARGE SUMMARY Observed: 06/10/2018 Status: F Source: [place] 4:39 PM [facility] REPOSITORY [facility] Medical Records Department [address] [address] Discharge Summary 06/10/18 1233 MR#: [id number] Acct: [id number] Name: YADI WESTFALL Rep #: [id number] : 1945 72 From: Rolando Avila MD PCP: Chaz BERG,Bakari Correa Status: ADM MAGALIE Y Location: [place] [address] Discharge Date and Diagnosis Date of Admission: 06/08/18 Date of Discharge: 06/10/18 - Secondary Discharge Diagnosis Chronic Problems Type 2 diabetes mellitus (Chronic) Hypertension (Chronic) Diabetic neuropathy (Chronic) Depression (Chronic) Physical debility (Chronic) Obesity (Chronic) Tobacco abuse (Chronic) Stroke (Chronic) Hospital Course and Treatment Imaging Results: CT Brain: IMPRESSION: Chronic involutional changes of the brain. CTA Neck: IMPRESSION: Calcific plaque at the origin of the right internal carotid artery causing greater than 70% luminal narrowing. CTA Brain: IMPRESSION: Normal [place] of [place] without a demonstrated aneurysm or hemodynamically significant stenosis. Operations: None Procedures: 2-D Echocardiogram - Interpretation Summary Stage 2 diastolic dysfunction. Trivial mitral valve insufficiency. Mild (1+) tricuspid valve insufficiency. Right ventricular systolic pressure estimated to be 38 mmHg. The estimated ejection fraction is 75 %. Compared to echo report dated 11/16/2016, no appreciable changes noted. Summary of Care Provided: Per HPI: The patient is a 72 year old F with a PMH as below who presents to the ER with a right facial droop and slurred speech after a bladder stimulation procedure by urology today. She was last known normal at around 6 am for the procedure and close to 10 am her family noticed that in recovery after the procedure she had a rightsided facial droop and slurred speech. She had had a stroke about 7 years ago with left sided is symptoms and has residual left sided weakness. In the ER she had an NIH of 3 for the facial droop, dysarthria and RUE numbness. She had a CT head which was negative and CTA of the head and neck with a greater than 70% stenosis in the ROSA. Vital Signs - 24 hr 06/10/18 10:55 105 H 06/10/18 10:10 98.0 F 83 16 154/74 H 94 06/10/18 06:56 95 General: Alert, Oriented x3, Cooperative, No apparent distress HEENT: Atraumatic, PERRLA, EOMI, Normocephalic Neck: Supple, No JVD Lungs: Clear to auscultation, Normal air movement, No rhonchi, No wheeze, No rales Cardiovascular: Regular rate, Regular Rhythm, Normal S1, Normal S2, No murmurs Abdomen: Soft, Non Tender, Non-Distended, No Hepato-splenomegaly Extremities: No edema, Capillary Refill Less than 3 Seconds Skin: No rashes, No breakdown Neurological: Facial Droop - on the right, Sensory exam intact to light touch and pain, - - 4/5 strength on the LUE and LLE Psych/Mental Status: Normal Affect, Appropriate Hospital Course: 1. TIA vs CVA - She presented after a procedure for a bladder stimulator implantation with a right facial droop. She continues to have left sided deficits from a previous stroke however she did not have any other right sided deficits. Unfortunately the bladder stimulator leads that had been implanted precluded her from an MRI. She did not do well with therapy and was requiring a 2 person assist and therefore she was discharged to rehab. There were no adjustments to her medical management since she was already on asa, plavix and a statin. Of note her R ICA was found to have a 70% stenosis and may need further work-up as an outpatient. 2. DM2/BIBIANA - On admission it did appear she had an BIBIANA based on her previous creatinine and her admission creatinine of 1.16. This has resolved with fluid resuscitation. Her DM was controlled on a SSI while an inpatient but she can be resumed on her home medications on discharge. 3. Her other medical diagnoses were evaluated and her home medications were continued where appropriate. - Physical Exam Vital Signs Temp Pulse Resp BP Pulse Ox 98.0 F 105 H 16 154/74 H 94 06/10/18 10:10 06/10/18 10:55 06/10/18 10:10 06/10/18 10:10 06/10/18 10:10 Oxygen Flow Rate (L/min) 1 Oxygen Delivery Method Room Air Weight: 207 lb 3.752 oz Body Mass Index (BMI) 36.1 Finger Stick Blood Glucose 221 Intake and Output for Last 24 Hours Intake Total 1566 / 1566 3624 / 3624 560 / 560 Output Total 320 / 320 4030 / 4030 1500 / 1500 Balance 1246 / 1246 -406 / -406 -940 / -940 POC Glucose POC Glucose 404 H 207 H 272 H POC Glucose 258 H Discharge Activity: No Restrictions Call your doctor if you observe: Numbness or Tingling, Shortness of breath, Dizziness, Fainting spells, Chest pain, Increased palpitations (irregular heartbeat) Home Medications: Medications to take at Discharge Aspirin [Aspirin, Baby] 81 mg PO DAILY@0800 #30 tab.chew 03/09/16 Atorvastatin Calcium [Lipitor] 40 mg PO QHS #30 tablet 03/09/16 Clopidogrel Bisulfate [Plavix] 75 mg PO DAILY #30 tablet 03/09/16 Glimepiride [Amaryl] 1 mg PO DAILY #30 tablet 03/09/16 Lisinopril [Zestril] 20 mg PO DAILY #30 tablet 03/09/16 Escitalopram Oxalate [Lexapro] 20 mg PO QHS 06/14/17 Gabapentin [Neurontin] 200 mg PO TIDCM 06/14/17 Baclofen 20 mg PO TID 06/01/18 Galantamine HBr [Galantamine ER] 24 mg PO DAILY 06/01/18 Acetaminophen [Tylenol] 500 mg PO Q4H PRN PRN #20 tablet 06/08/18 Memantine HCl 10 mg PO BID 06/08/18 Primary Care Physician: Bakari Ware Chi, MD [Primary Care Provider] - Please follow up with your Primary Care Physician in: [place] 3- 5 DAYS Disposition: Inpt Rehab Unit/Facility Minutes spent on discharge:: 35 Patient Condition:: Good Medical Necessity - Tobacco Use Smoking Status: Former smoker Tobacco Use: Cigarettes Meaningful Use Info Meaningful Use Diagnoses (Choose all that apply): Ischemic CVA - CVA Therapy Assessed for PT,OT and/or ST?: Yes - Ischemic Stroke Antithrombotic order at d/c?: Yes Dx of Atrial fib/flutter?: No Statins at discharge?: Yes Primary Dx Acute Ischemic CVA?: Yes IV tPA ordered during stay?: No Reason IV t-PA not ordered: Treatment not Indicated Code Visit OBSV E AND M: [id number] Observation care discharge 06/10/18 6939 <Electronically signed by Rolando Avila MD> Date Rolando Avila MD Cosigner Signature (if applicable): Date CC: Rolando Avila MD; Bakari Ware MD Signed 12 LEAD ELECTROCARDIOGRAM Observed: 06/10/2018 Status: F Source: [place] 2:26 PM [facility] REPOSITORY [facility] Cardiovascular Services [address] [place] [address] 12 Lead EKG 06/08/18 1030 MR#: [id number] Acct: [id number] Name: YADI WESTFALL Rep #: [id number] : 1945 72 From: George Bourne MD Attending Dr: Rolando Avila MD Status: ADM MAGALIE Ordering Dr: Michael Ocampo MD Date: 06/08/18 Location: [facility] Sex: F C Admitted: 06/08/18 Test Reason : STROKE TEAM Blood Pressure : / mmHG Vent. Rate : 064 BPM Atrial Rate : 064 BPM P-R Int : 232 ms QRS Dur : 146 ms QT Int : 472 ms P-R-T Axes : 060 -55 -03 degrees QTc Int : 486 ms Sinus rhythm with 1st degree A-V block Left axis deviation Right bundle branch block Abnormal ECG Confirmed by CHESTER BERG, GEORGE ([id number]), slot editor ABBE ELIAS ([id number]) on 06/10/2018 2:26:45 PM Referred By: ADOLFO Confirmed By:GEORGE BOURNE MD 06/10/18 1426 Date George Bourne MD CC: Michael Ocampo MD; Rolando Avila MD; Bakari Ware MD Signed DISCHARGE INSTRUCTION Observed: 06/10/2018 Status: F Source: [place] 12:33 PM [facility] REPOSITORY [facility] Medical Records Department [address] [place] [address] Instructions for Home/Discharge Instructions 06/10/18 1232 MR#: [id number] Acct: [id number] Name: YADI WESTFALL Rep #: [id number] : 1945 72 From: Rolando Avila MD PCP: Chaz BERG,Bakari Correa Status: ADM MAGALIE You will use the following diet at home:: Calorie/Carbohydrate Controlled (specify 1200, 1400, etc), Cardiac Your food should be the consistency of: Regular Your liquids should be the consistency of: Regular/Thin Discharge Activity: No Restrictions Call your doctor if you observe: Numbness or Tingling, Shortness of breath, Dizziness, Fainting spells, Chest pain, Increased palpitations (irregular heartbeat) Allergies/Adverse Reactions: Allergies promethazine HCl [From Phenergan] Adverse Reaction (Verified 06/08/18 10:32) Nausea Medications to take at Discharge Aspirin [Aspirin, Baby] 81 mg PO DAILY@0800 #30 tab.chew 03/09/16 Atorvastatin Calcium [Lipitor] 40 mg PO QHS #30 tablet 03/09/16 Clopidogrel Bisulfate [Plavix] 75 mg PO DAILY #30 tablet 03/09/16 Glimepiride [Amaryl] 1 mg PO DAILY #30 tablet 03/09/16 Lisinopril [Zestril] 20 mg PO DAILY #30 tablet 03/09/16 Escitalopram Oxalate [Lexapro] 20 mg PO QHS 06/14/17 Gabapentin [Neurontin] 200 mg PO TIDCM 06/14/17 Baclofen 20 mg PO TID 06/01/18 Galantamine HBr [Galantamine ER] 24 mg PO DAILY 06/01/18 Acetaminophen [Tylenol] 500 mg PO Q4H PRN PRN #20 tablet 06/08/18 Memantine HCl 10 mg PO BID 06/08/18 Primary Care Physician: Bakari Ware Chi, MD [Primary Care Provider] - Please follow up with your Primary Care Physician in: [place] 3- 5 DAYS Test Results: Test results from this visit will be discussed in further detail at your follow-up appointment, if applicable. 06/10/18 1233 <Electronically signed by Rolando Avila MD> Date Rolando Avila MD CC: Musa Llamas MD; Bakari Ware MD BEDSIDE GLUCOSE Collected: 06/10/2018 Status: F Source: [place] 12:02 PM [facility] REPOSITORY TYPE CODE TESTS RESULT OUT OF REFERENCE UNITS RANGE LAB L501.080 70-110 mg/dL High BEDSIDE GLU 404 Result Comment: MANAGEMENT OF PATIENT CARE PER NURSING PROTOCOL Performed By: #### L501.080 #### [facility] Point of Care [address] [place] [address] BEDSIDE GLUCOSE Collected: 06/10/2018 Status: F Source: [place] 6:59 AM [facility] REPOSITORY TYPE CODE TESTS RESULT OUT OF REFERENCE UNITS RANGE LAB L501.080 70-110 mg/dL High BEDSIDE GLU 207 Result Comment: MANAGEMENT OF PATIENT CARE PER NURSING PROTOCOL Performed By: #### L501.080 #### [facility] Point of Care [address] [place] [address] BEDSIDE GLUCOSE Collected: 06/09/2018 Status: F Source: [place] 8:50 PM [facility] REPOSITORY TYPE CODE TESTS RESULT OUT OF REFERENCE UNITS RANGE LAB L501.080 70-110 mg/dL High BEDSIDE GLU 272 Result Comment: MANAGEMENT OF PATIENT CARE PER NURSING PROTOCOL Performed By: #### L501.080 #### [facility] Point of Care [address] [place] [address] BEDSIDE GLUCOSE Collected: 06/09/2018 Status: F Source: [place] 4:15 PM [facility] REPOSITORY TYPE CODE TESTS RESULT OUT OF REFERENCE UNITS RANGE LAB L501.080 70-110 mg/dL High BEDSIDE GLU 258 Result Comment: MANAGEMENT OF PATIENT CARE PER NURSING PROTOCOL Performed By: #### L501.080 #### [facility] Point of Care [address] [place] [address] VENOUS DUPLEX LOWER Observed: 06/09/2018 Status: F Source: [place] EXTREMITY 1:09 PM [facility] REPOSITORY [facility] Cardiovascular Services [address] [place] [address] Venous Duplex US, Unilateral 06/08/18 1124 MR#: [id number] Acct: [id number] Name: YADI WESTFALL Rep #: [id number] : 1945 72 From: Luiz Simon MD Attending Dr: Rolando Avila MD Status: ADM MAGALIE Ordering Dr: Michael Ocampo MD Date: 06/08/18 Location: [facility] Sex: F C Admitted: 06/08/18 Reason For Study: LLE swelling RIGHT LEFT CFV is compressible, spontaneous, phasic, GSV is normal. competent and demonstrates normal CFV is compressible, spontaneous, phasic, augmentation. competent, and demonstrates normal Procedure augmentation. Exam performed in department. FV is compressible, spontaneous, phasic, A preliminary report was called and/or faxed competent and demonstrates normal to ED. augmentation. POP V is compressible, spontaneous, phasic, competent and demonstrates normal augmentation. T/P Trunk is compressible. PTV is compressible. LT PerV is compressible. <> Interpretation Summary Deep veins of the left lower extremity are patent and compressible segmentally. There is no evidence of left lower extremity deep vein thrombosis. Valvular competence appears intact within the proximal deep venous system on the left . The left greater saphenous vein appears patent and compressible segmentally. Ordering Physician: Michael Ocampo Referring Physician: Bakari Ware Chi Performed By: Esteban ROBISON [facility], [place] and Student 06/09/18 1309 Date Luiz Simon MD CC: Michael Ocampo MD; Rolando Avila MD; Bakari Ware MD Date Dictated: 06/08/18 1124 Date Transcribed: 06/09/18 1309 Swing Grinder: Signed BEDSIDE GLUCOSE Collected: 06/09/2018 Status: F Source: [place] 11:23 AM [facility] REPOSITORY TYPE CODE TESTS RESULT OUT OF REFERENCE UNITS RANGE LAB L501.080 70-110 mg/dL High BEDSIDE GLU 274 Result Comment: MANAGEMENT OF PATIENT CARE PER NURSING PROTOCOL Performed By: #### L501.080 #### [facility] Point of Care [address] [place] [address] BEDSIDE GLUCOSE Collected: 06/09/2018 Status: F Source: [place] 6:55 AM [facility] REPOSITORY TYPE CODE TESTS RESULT OUT OF REFERENCE UNITS RANGE LAB L501.080 70-110 mg/dL High BEDSIDE GLU 166 Result Comment: MANAGEMENT OF PATIENT CARE PER NURSING PROTOCOL Performed By: #### L501.080 #### [facility] Point of Care [address] [place] [address] BASIC METABOLIC Collected: 06/09/2018 Status: F Source: [place] PROFILE (BMP) 6:15 AM [facility] REPOSITORY TYPE CODE TESTS RESULT OUT OF RANGE REFERENCE UNITS LAB L501.0100 74-106 mg/dL High GLU 164 Result Comment: Fasting Glucose result greater than or equal to 126 mg/dL suggests DIABETES MELLITUS per A.D.A. criteria. Please note revised GLUCOSE reference range effective 2017. LAB L501.1000 7-18 mg/dL High BUN 20 LAB L501.1100 0.55-1.02 mg/dL Normal CREAT,SERUM 0.91 Result Comment: The validity of the calculated GFR AND GFRAA in patients over 70 years has not been determined. Clinical correlation is essential. LAB L501.1110 >60 mL/min Normal EST GFR 65 Result Comment: Non- GFR Calc LAB L501.1115 >60 mL/min Normal EST GFR - AA 78 Result Comment: GFR Calc LAB L501.1255 ml/min Normal Estimated CRCL 46.23 LAB L501.1300 10-20 RATIO High BUN/CRE 22.1 LAB L501.2200 8.5-10 mg/dL Low .1 CA 7.8 LAB L501.5300 136-14 mmol/L Normal 5 NA 142 LAB L501.5600 3.5-5. mmol/L Normal 1 K 3.7 LAB L501.5900 98-107 mmol/L Normal CL 106 LAB L501.6100 21.0-3 mmol/L Normal 2.0 CO2 28.0 LAB L501.6200 5-15 Normal GAP 8 Performed By: #### L500.2500, L500.4100 #### [facility] [address] [place], [address] LIPID PROFILE Collected: 06/09/2018 Status: F Source: MOORE 6:15 AM [facility] REPOSITORY TYPE CODE TESTS RESULT OUT OF RANGE REFERENCE UNITS LAB L501.4900 200 mg/dL Normal CHOL 99 Result Comment: <200 mg/dL Desirable 200-240 mg/dL Borderline >240 mg/dL High Risk LAB L501.5000 mg/dL Normal TRIG 44 Result Comment: The drugs N-Acetylcysteine and Metamizole may falsely depress this assay. Serum Triglycerides Reference Interval Normal <150 mg/dL Borderline high 150 - 199 mg/dL High 200 - 499 mg/dL Very High > or = 500 mg/dL LAB L501.6400 mg/dL Normal HDL 58 Result Comment: The drugs N-Acetylcysteine and Metamizole may falsely depress this assay. Reference Range HDL <40 mg/dL Low HDL Cholesterol HDL >or= 60 mg/dL High HDL Cholesterol LAB L501.6500 0-130 mg/dL Normal LDL 32 LAB L501.6600 5-40 mg/dL Normal VLDL 9 Performed By: #### L500.2500, L500.4100 #### [facility] [address] [place], [place], [address] BRAIN/HEAD WITHOUT Observed: 06/09/2018 Status: F Source: MOORE CONTRAST 12:00 AM [facility] REPOSITORY [facility] Imaging Services [address] [place] [address] Brain/Head without Contrast MR#: [id number] Acct: [id number] Name: YADI WESTFALL Rep #: [id number] : 1945 F 72 From: Leonard Galo MD PCP: Chaz BERG,Bakari [facility] Status: ADM MAGALIE Study: Brain/Head without Contrast Date of Exam: 06/09/18 Exam# [id number] Ordering Dr: Rolando Avila MD STUDY: CT BRAIN WITHOUT CONTRAST REASON FOR EXAM: Female, 72 years old. Follow-up CVA. Patient had right facial droop and slurred speech after bladder stimulation by urology yesterday. RADIATION DOSAGE (If Supplied By Facility): CTDIvol = ( 44.99 ) mGy, DLP = ( 796.11 ) mGycm TECHNIQUE: Transaxial CT imaging of the brain was performed without administration of intravenous contrast material. Individualized dose optimization techniques were used for this CT. COMPARISON: 06/08/2018. 11/16/2016. FINDINGS: Normal soft tissue structures. There is hyperostosis frontalis internus. There is mild cerebral atrophy with widening of the extra- axial spaces and ventricular dilatation. There are areas of decreased attenuation within the white matter tracts of the supratentorial brain, consistent with microvascular disease changes. There are old lacunar infarctions in the basal ganglia bilaterally Normal brainstem. There is mild cerebellar atrophy. There is atherosclerotic calcification of the cavernous carotid arteries. There is no intracranial hemorrhage. There are no findings of an acute ischemic infarction. Normal visualized paranasal sinuses. CT/Brain/Head without Contrast IMPRESSION: Chronic involutional changes of the brain. Old basal ganglia lacunar infarctions. No demonstrated acute intracranial process. Electronically Signed: Leonard Galo MD at 6:22 EST , Service support , CC: Rolando Avila MD; Bakari Ware MD Swing Grinder: Signed BEDSIDE GLUCOSE Collected: 06/08/2018 Status: F Source: BONITA 10:01 PM [facility] REPOSITORY TYPE CODE TESTS RESULT OUT OF REFERENCE UNITS RANGE LAB L501.080 70-110 mg/dL High BEDSIDE GLU 220 Result Comment: MANAGEMENT OF PATIENT CARE PER NURSING PROTOCOL Performed By: #### L501.080 #### [facility] Point of Care [address] [place] [place] [address] HISTORY AND PHYSICAL Observed: 06/08/2018 Status: F Source: MOORE EXAM 5:47 PM [facility] REPOSITORY [facility] Medical Records Department [address] [place] [address] History and Physical 06/08/18 1720 MR#: [id number] Acct: [id number] Name: YADI WESTFALL Rep #: [id number] : 1945 72 From: Rolando Avila MD PCP: Bakari Ware MD, Chi Status: ADM MAGALIE Y Location: [place] [address] Problem List (1) Type 2 diabetes mellitus Status: Chronic (2) Hypertension Status: Chronic (3) Diabetic neuropathy Status: Chronic (4) Depression Status: Chronic (5) CVA (cerebral infarction) Status: Acute History of Present Illness Date of Admission: 06/08/18 Chief Complaint: Dysarthria The patient is a 72 year old F with a PMH as below who presents to the ER with a right facial droop and slurred speech after a bladder stimulation procedure by urology today. She was last known normal at around 6 am for the procedure and close to 10 am her family noticed that in recovery after the procedure she had a rightsided facial droop and slurred speech. She had had a stroke about 7 years ago with left sided is symptoms and has residual left sided weakness. In the ER she had an NIH of 3 for the facial droop, dysarthria and RUE numbness. She had a CT head which was negative and CTA of the head and neck with a greater than 70% stenosis in the ROSA. Past Medical History Past Medical History (Chronic Problems): Chronic Problems Type 2 diabetes mellitus (Chronic) Hypertension (Chronic) Diabetic neuropathy (Chronic) Depression (Chronic) Physical debility (Chronic) Obesity (Chronic) Tobacco abuse (Chronic) Stroke (Chronic) Allergies promethazine HCl [From Phenergan] Adverse Reaction (Verified 06/08/18 10:32) Nausea Home Medications: Ambulatory Orders Medication Instructions Recorded Aspirin [Aspirin, Baby] 81 mg PO DAILY@0800 #30 tab.chew 03/09/16 Surgical History: adenoidectomy, appendectomy, - - lumbar herniated disk surgery Psychiatric History: Anxiety - Patient complains of anxiety symptoms but does not take any medications 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 TENDER history Smoking Status: Former smoker Tobacco Use: Cigarettes Alcohol: None Drugs: None - *Family History Maternal History Items: Cancer, Hypertension, - Paternal History Items: - Sibling History Items: No pertinent history Review of Systems Constitutional: Denies: Chills, Fever, Weight Change HEENT: Denies: Head Aches, Sinus Congestion, Sinus Drainage Cardiovascular: Denies: Chest Pain, Palpitations Respiratory: Denies: Cough, Shortness of breath at rest, Sputum production Gastrointestinal: Denies: Abdominal Pain, Nausea, Vomiting Genitourinary: Denies: Dysuria Musculoskeletal: Denies: Joint Pain, Joint Tenderness Skin: Denies: Rash, Wounds Neurological: Denies: Numbness, Tingling, Focal weakness Psychiatric: Denies: Anxiety, Depression Hematologic/ Lymphatic: Denies: Easy Bruising, Easy Bleeding VTE Information - Inpt Only VTE Present on Admission: No - Physical Exam General: Alert, Oriented x3, Cooperative, No apparent distress HEENT: Atraumatic, PERRLA, EOMI, Normocephalic Neck: Supple, No JVD Lungs: Clear to auscultation, Normal air movement, No rhonchi, No wheeze, No rales Cardiovascular: Regular rate, Regular Rhythm, Normal S1, Normal S2, No murmurs Abdomen: Soft, Non Tender, Non-Distended, No Hepato-splenomegaly Extremities: No edema, Capillary Refill Less than 3 Seconds Skin: No rashes, No breakdown Neurological: Facial Droop - on the right, Sensory exam intact to light touch and pain, - - 4/5 strength on the LUE and LLE Psych/Mental Status: Normal Affect, Appropriate Vital Signs Temp Pulse Resp BP Pulse Ox 97.5 F L 63 16 139/67 H 95 06/08/18 16:00 06/08/18 16:00 06/08/18 16:00 06/08/18 16:00 06/08/18 16:00 Oxygen Flow Rate (L/min) 2 Oxygen Delivery Method Room Air Weight: 207 lb 3.752 oz Body Mass Index (BMI) 36.1 Finger Stick Blood Glucose 221 Laboratory Tests Past 24 Hrs WBC 6.7 RBC 4.32 Hgb 12.9 POC Glucose POC Glucose 182 H 221 H Assessment/Plan All Active Problems UTI (urinary tract infection) (Acute) Difficulty walking (Acute) mechanical fall (Acute) CVA (cerebral infarction) (Acute) Weakness (Acute) Left hemiparesis (Acute) Confusion (Acute) 1. CVA/ROSA stenosis of 70% - NIH of 1 for right facial droop - Left sided deficits are not new - Resume asa/plavix and statin. She has pain with the statin so cannot increase - Echo with normal EF and grade 2 diastolic dysfunction - No MRI given leads for the bladder stimulator, will repeat CT head in the am - She will need outpatient follow-up for her R ICA stenosis - PT/OT/Speech 2. Overactive bladder - had procedure with interstim placement today - Precluding MRI - Appreciate urology clearance to resume antiplatelets 3. HTN/HLD - c/w lisinopril and statin - stable, lipid panel in the am 4. Dementia - stable - c/w home medications 5. Depression - stable - c/w lexapro 6. DM2 - hold glimepiride and start SSI with accuchecks - BG 217 DVT: SCDs Code Visit OBSV E AND M: [id number] Observation care discharge 06/08/181746 <Electronically signed by Rolando Avila MD> Date Rolando Avila MD Cosigner Signature: Date (if applicable) CC: Rolando Avila MD; Bakari Ware MD Signed ECHO, COMPLETE W/ Observed: 06/08/2018 Status: F Source: BONITA CONTRAST 4:39 PM [facility] REPOSITORY [facility] Cardiovascular Services [address] [place] [address] Echo Complete W/ Contrast 06/08/18 1528 MR#: [id number] Acct: [id number] Name: YADI WESFTALL Rep #: [id number] : 1945 72 From: Michael Wing MD Attending Dr: Rolando Avila MD Status: ADM MAGALIE Ordering Dr: Rolando Avila MD Date: 06/08/18 Location: [facility] Sex: F C Admitted: 06/08/18 Reason For Study: TIA/CVA Procedure This was a 2D Doppler, Color Flow transthoracic echocardiogram. The study was technically difficult. Contrast injection was performed. Exam performed portable in patient room. Left Ventricle Normal size and thickness. The estimated ejection fraction is 75 %. Stage 2 diastolic dysfunction. No regional wall motion abnormalities noted. Right Ventricle Normal size and thickness. Normal systolic function. Atria Normal left atrium. Normal right atrium. Normal atrial septum. Mitral Valve The mitral valve is structurally normal. No prolapse or stenosis seen. Trivial mitral valve insufficiency. Tricuspid Valve Normal tricuspid valve. Mild (1+) tricuspid valve insufficiency. Right ventricular systolic pressure estimated to be 38 mmHg. Mild pulmonary hypertension. Aortic Valve Trisinus/trileaflet aortic valve. Mild diffuse aortic valve thickening. There is no aortic stenosis. Pulmonic Valve Normal pulmonic valve. Great Vessels Normal aortic root. Normal arch. Normal inferior vena cava. Inferior vena cava collapse with sniff. Pericardium/Pleural No pericardial effusion. Medication Diluted definity 2ml given slow IV push to enhance endocardial definition. MMode/2D Measurements AND Calculations LVIDd: 4.7 cm IVSd: 1.2 cm Ao root diam: 3.1 cm LVIDs: 2.9 cm LVPWd: 1.2 cm LA dimension: 3.8 cm FS: 38.8 % LAV(MOD-bp): 33.5 ml LVAd ap4: 26.1 cm2 SV(MOD-sp4): 53.7 ml LAV(MOD-bp) Indexed: 16.7 ml/m2 EDV(MOD-sp4): 76.8 ml LAV(MOD-sp2): 41.7 ml EDV(sp4-el): 76.2 ml LAV(MOD-sp4): 24.3 ml LVAs ap4: 12.4 cm2 ESV(MOD-sp4): 23.2 ml ESV(sp4-el): 22.1 ml EF(MOD-sp4): 69.9 % EF(sp4-el): 71.0 % SV(sp4-el): 54.1 ml LA A4 area: 11.7 cm2 RA A4 area: 15.6 cm2 Doppler Measurements AND Calculations MV E max verona: 120.8 cm/sec Lat Peak E' Verona: 6.1 cm/sec Med Peak E' Verona: 5.6 cm/sec MV A max verona: 93.4 cm/sec E/E' lat: 19.7 E/E' med: 21.8 MV E/A: 1.3 Ao V2 max: 136.3 cm/sec LV V1 max: 92.0 cm/sec PA V2 max: 74.9 cm/sec Ao max P.4 mmHg LV V1 max P.4 mmHg Ao V2 mean: 95.8 cm/sec Ao mean P.1 mmHg Ao V2 VTI: 33.3 cm TR max verona: 288.1 cm/sec TR max P.2 mmHg Interpretation Summary Stage 2 diastolic dysfunction. Trivial mitral valve insufficiency. Mild (1+) tricuspid valve insufficiency. Right ventricular systolic pressure estimated to be 38 mmHg. The estimated ejection fraction is 75 %. Compared to echo report dated 11/16/2016, no appreciable changes noted. Ordering Physician: Rolando Avila Referring Physician: Bakari Ware Chi Performed By: Janis Garcia, DAVID, RVT 06/08/18 163 Date Michael Wing MD CC: Rolando Avila MD; Bakari Ware MD Date Dictated: 06/08/18 1528 Date Transcribed: 06/08/181638 Swing Grinder: Signed BEDSIDE GLUCOSE Collected: 06/08/2018 Status: F Source: MOORE 4:26 PM [facility] REPOSITORY TYPE CODE TESTS RESULT OUT OF REFERENCE UNITS RANGE LAB L501.080 70-110 mg/dL High BEDSIDE GLU 182 Result Comment: MANAGEMENT OF PATIENT CARE PER NURSING PROTOCOL Performed By: #### L501.080 #### [facility] Point of Care [address] [place] [address] EMERGENCY DEPARTMENT Observed: 06/08/2018 Status: F Source: MOORE SUMMARY 4:14 PM [facility] REPOSITORY [facility] Medical Records Department [address] [place] [address] Emergency Department Summary 06/08/18 1111 MR#: [id number] Acct: [id number] Name: YADI WESTFALL Rep #: [id number] : 1945 72 From: Michael Ocampo MD PCP: Bakari Ware MD, Chi Status: ADM MAGALIE - ER Visit Summary Date of Service: 06/08/18 Chief Complaint: Stroke History of Present Illness: The patient is a 72 F with stroke symptoms. Patient was last seen normal at 6:20 AM this morning. She went to family day care provider and had a bladder stimulator placed. She woke up from anesthesia and her family noticed that she had a right-sided facial droop and slurred speech around 9:45 AM this morning. She has not had these symptoms before. She had a remote stroke in 2011 or 2012 and has some left leg weakness. She complains of some left hip pain but no other complaints at this time. She does take aspirin and Plavix. Physical Examination: Afebrile and vital signs unremarkable. Alert and oriented. No acute distress. She has right-sided facial droop, dysarthria, and has decreased sensation in her right arm. I gave her an NIH stroke scale of 3. The remainder of her neurologic exam was unremarkable. Heart regular. Lungs clear. Abdomen soft. Test Results: EKG showed sinus rhythm at a rate of 64 with a right bundle branch block pattern. Troponin normal. Hemoglobin 11.2, glucose 217, BUN 31, creatinine 1.16. PT and PTT normal. Chest x-ray pending but appears unremarkable. Left leg duplex studies are pending. CT brain showed chronic changes. CTA head and neck showed a right internal carotid artery plaque at 70% but was otherwise unremarkable. Emergency Department Course and Treatment: Patient was seen immediately as a stroke team. Her NIH score was 3. She went to CAT scan. Imaging showed chronic changes. Nothing acute. Nursing did note that she was confused to the month, but on my evaluation she was not. No other changes in her exam or findings. I spoke with the radiologist as well as the neurologist. She is not a candidate for TPA. I spoke with the patient and her family at bedside. Will be admitted for a stroke workup. Family noted that she had some swelling to her left leg. She has diffuse swelling bilaterally, worse on the left. Neurovascularly intact. Ultrasound is pending. Patient was discussed with the hospitalist and will be admitted for further care. Treatment Plan: As above Disposition: Admission Impression: 1. Acute ischemic stroke 2. Left leg swelling This note was generated with BioCriticaation software. It may contain incorrect words, spelling, and punctuation that were not noted in review of the chart prior to signing ED Disposition - Plan for ED Patient: Chief Complaint: Neuro S/Sx Referrals: Bakari Ware Chi, MD [Primary Care Provider] - What to do if you have Problems For any increased pain, shortness of breath, bleeding, nausea or vomiting, chest pain, or any unexpected problems, contact your Primary Care Provider. Call [facility] ([phone]) or report to the closest Emergency Room. Call 911 if necessary. 06/08/18 1614 <Electronically signed by Michael Ocampo MD> Date Michael Ocampo MD Cosigner Signature (If Indicated): Date CC: Bakari Ware MD CONSULTATION Observed: 06/08/2018 Status: F Source: MOORE 2:04 PM [facility] REPOSITORY [facility] Medical Records Department [address] [place] [address] Consultation 06/08/18 1348 MR#: [id number] Acct: [id number] Name: YADI WESTFALL Rep #: [id number] : 1945 72 From: Musa Llamas MD PCP: Bakari Ware MD, Chi Status: ADM MAGALIE Y Location: [place] [address] Reason for Consult Date of Consultation: 06/08/18 Reason for Consultation: cva History of Present Illness: The patient is a 72 year old right handed white female who had a stroke affecting her left side 6 yrs ago, on asa/plavix and statin since then. normal at 630am, had bladder stimulator placed this am and was noted to have speech abnormality when she awoke from anesthesia, now improved.also notes transient vertical diplopia. feels normal. no other complaints. didnt sleep well last night. had been off asa/plavix for 7 days prior to her surgery. not tpa candidate due to time to presentation, and minor symptoms. per ed notes nihss was 3. lives at home with daughter, uses walker, occasional falls. Past Medical History Past Medical History (Chronic Problems): Chronic Problems Type 2 diabetes mellitus (Chronic) Hypertension (Chronic) Diabetic neuropathy (Chronic) Depression (Chronic) Physical debility (Chronic) Obesity (Chronic) CVA (cerebral infarction) (Chronic) Tobacco abuse (Chronic) Stroke (Chronic) Allergies promethazine HCl [From Phenergan] Adverse Reaction (Verified 06/08/18 10:32) Nausea Home Medications: Ambulatory Orders Medication Instructions Recorded Aspirin [Aspirin, Baby] 81 mg PO DAILY@0800 #30 tab.chew 03/09/16 Surgical History: adenoidectomy, appendectomy, - - lumbar herniated disk surgery Psychiatric History: Anxiety - Patient complains of anxiety symptoms but does not take any medications 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 TENDER history Smoking Status: Former smoker - *Family History Maternal History Items: Cancer, Hypertension, - Paternal History Items: - Sibling History Items: No pertinent history Review of Systems Constitutional: Denies: Chills, Fever, Weight Change HEENT: Denies: Head Aches, Sinus Congestion, Sinus Drainage Cardiovascular: Denies: Chest Pain, Palpitations Respiratory: Denies: Cough, Shortness of breath at rest, Sputum production Gastrointestinal: Denies: Abdominal Pain, Nausea, Vomiting Genitourinary: Denies: Dysuria Musculoskeletal: Denies: Joint Pain, Joint Tenderness Skin: Denies: Rash, Wounds Neurological: Denies: Numbness, Tingling, Focal weakness Psychiatric: Denies: Anxiety, Depression, Homicidal Ideations, Suicidal Ideations Hematologic/ Lymphatic: Denies: Easy Bruising, Easy Bleeding - Physical Exam General: Alert, Oriented x3, Cooperative, No apparent distress Neurological: Cranial nerves II-XII grossly intact, Sensory exam intact to light touch and pain, - - mild left arm and leg weakness and discoord with orbit testing Psych/Mental Status: Normal Affect Vital Signs Temp Pulse Resp BP Pulse Ox 36.4 C L 78 18 138/74 H 93 06/08/18 12:13 06/08/18 12:13 06/08/18 12:13 06/08/18 12:15 06/08/18 12:13 Oxygen Flow Rate (L/min) 2 Oxygen Delivery Method Room Air Weight: 94 kg Body Mass Index (BMI) 36.1 Finger Stick Blood Glucose 221 Laboratory Tests Past 24 Hrs WBC 6.7 RBC 4.32 Hgb 12.9 POC Glucose POC Glucose 221 H Current Home Med List Medication Instructions Recorded Confirmed Type Current Medications Generic Name Dose Route Start Last Admin ct no acute. cta shows right ica stenosis, Assessment/Plan All Active Problems UTI (urinary tract infection) (Acute) Difficulty walking (Acute) mechanical fall (Acute) Weakness (Acute) Left hemiparesis (Acute) Confusion (Acute) cva, s/p implantation of bladder stimulator stimulator wires placed, no stimulator yet, mri if able restart asa/plavix/statin if ok with urology pt/ot/sp 06/08/18 1404 <Electronically signed by Musa Llamas MD> Date Musa Llamas MD Cosigner Signature (if applicable): Date CC: Musa Llamas MD; Bakari Ware MD Signed CBC W/DIFF, AUTOMATED Collected: 06/08/2018 Status: F Source: BONITA 12:45 PM [facility] REPOSITORY TYPE CODE TESTS RESULT OUT OF RANGE REFERENCE UNITS LAB L100.1000 4.4-11.0 K/mm3 Normal WBC 6.7 LAB L100.1200 4.2-5.4 M/mm3 Normal RBC 4.32 LAB L100.1300 12.0-15.0 g/dl Normal HGB 12.9 LAB L100.1400 37-47 % Normal HCT 39.3 LAB L100.1500 81-99 fL Normal MCV 91.0 LAB L100.1600 27.0-32.0 pg Normal MCH 29.9 LAB L100.1700 32-36 g/gl Normal MCHC 32.8 LAB L100.1810 11.6-14.6 % Normal RDW CV 12.9 LAB L100.1820 35.1-43.9 fl Normal RDW SD 42.8 LAB L100.1900 150-450 K/mm3 Normal PLT 173 LAB L100.2000 6.2-12.0 fl Normal MPV 11.0 LAB L100.2100 47-70 % Normal NEUT% 57.2 LAB L100.2200 19-41 % Normal LY% 32.4 LAB L100.2300 0-10 % Normal MONO% 7.4 LAB L100.2400 0-5 % Normal EO% 2.7 LAB L100.2500 0-1 % Normal BASO% 0.3 LAB L100.2550 0.0-0.9 % Normal IM GRAN % 0.000 Result Comment: IG% - Immature Granulocytes (promyelocytes, myelocytes and metamyelocytes) > 1% indicates that a LEFT SHIFT is Present. LAB L100.2620 2.0-7.7 X10 3/uL Normal Absolute Neut 3.8 LAB L100.2720 0.83-4.51 X10 3/ul Normal Absolute Lymph 2.18 Performed By: #### L100.0100 #### [facility] [address] [place] [address]. [place], [place], [address] CBC W/DIFF, AUTOMATED Collected: 06/08/2018 Status: F Source: MOORE 10:29 AM [facility] REPOSITORY TYPE CODE TESTS RESULT OUT OF RANGE REFERENCE UNITS LAB L100.1000 4.4-11.0 K/mm3 Normal WBC 6.6 LAB L100.1200 4.2-5.4 M/mm3 Low RBC 3.76 LAB L100.1300 12.0-15.0 g/dl Low HGB 11.2 LAB L100.1400 37-47 % Low HCT 34.3 LAB L100.1500 81-99 fL Normal MCV 91.2 LAB L100.1600 27.0-32.0 pg Normal MCH 29.8 LAB L100.1700 32-36 g/gl Normal MCHC 32.7 LAB L100.1810 11.6-14.6 % Normal RDW CV 12.9 LAB L100.1820 35.1-43.9 fl Normal RDW SD 42.8 LAB L100.1900 150-450 K/mm3 Normal PLT 167 LAB L100.2000 6.2-12.0 fl Normal MPV 10.9 LAB L100.2100 47-70 % Normal NEUT% 55.2 LAB L100.2200 19-41 % Normal LY% 33.2 LAB L100.2300 0-10 % Normal MONO% 8.3 LAB L100.2400 0-5 % Normal EO% 2.6 LAB L100.2500 0-1 % Normal BASO% 0.5 LAB L100.2550 0.0-0.9 % Normal IM GRAN % 0.200 Result Comment: IG% - Immature Granulocytes (promyelocytes, myelocytes and metamyelocytes) > 1% indicates that a LEFT SHIFT is Present. LAB L100.2620 2.0-7.7 X10 3/uL Normal Absolute Neut 3.6 LAB L100.2720 0.83-4.51 X10 3/ul Normal Absolute Lymph 2.19 Performed By: #### L100.0100 #### [facility] [address] [place], [address] PROTHROMBIN TIME W/INR Collected: 06/08/2018 Status: F Source: BONITA 10:29 AM [facility] REPOSITORY TYPE CODE TESTS RESULT OUT OF RANGE REFERENCE UNITS LAB L300.4150 11.7-14.9 SECONDS Normal PROTIME 14.4 LAB L300.4200 Normal INR 1.1 Performed By: #### L300.3900, L300.4310 #### [facility] [address] [place], [address] PARTIAL THROMBOPLAST Collected: 06/08/2018 Status: F Source: [place] TIME 10:29 AM [facility] REPOSITORY TYPE CODE TESTS RESULT OUT OF RANGE REFERENCE UNITS LAB L300.4310 24.1-36.2 Seconds Normal PTT 31.5 Performed By: #### L300.3900, L300.4310 #### [facility] [address] [place], [place], [address] BASIC METABOLIC Collected: 06/08/2018 Status: F Source: [place] PROFILE (BMP) 10:29 AM [facility] REPOSITORY TYPE CODE TESTS RESULT OUT OF RANGE REFERENCE UNITS LAB L501.0100 74-106 mg/dL High GLU 217 Result Comment: Glucose result greater than or equal to 200 mg/dL suggests DIABETES MELLITUS per A.D.A. criteria. Please note revised GLUCOSE reference range effective 2017. LAB L501.1000 7-18 mg/dL High BUN 31 LAB L501.1100 0.55-1.02 mg/dL High CREAT,SERUM 1.16 Result Comment: The validity of the calculated GFR AND GFRAA in patients over 70 years has not been determined. Clinical correlation is essential. LAB L501.1110 >60 mL/min Low EST GFR 49 Result Comment: Non- GFR Calc LAB L501.1115 >60 mL/min Low EST GFR - AA 59 Result Comment: GFR Calc LAB L501.1255 ml/min Normal Estimated CRCL 36.26 LAB L501.1300 10-20 RATIO High BUN/CRE 26.7 LAB L501.2200 8.5-10 mg/dL Low .1 CA 7.8 LAB L501.5300 136-14 mmol/L Normal 5 NA 141 LAB L501.5600 3.5-5. mmol/L Normal 1 K 3.7 LAB L501.5900 98-107 mmol/L Normal CL 105 LAB L501.6100 21.0-3 mmol/L Normal 2.0 CO2 28.0 LAB L501.6200 5-15 Normal GAP 8 Performed By: #### L500.2500, L501.4010 #### [facility] [address] [place], [address] TROPONIN-I Collected: 06/08/2018 Status: F Source: [place] 10:29 AM [facility] REPOSITORY TYPE CODE TESTS RESULT OUT OF RANGE REFERENCE UNITS LAB L501.4010 <0.045 ng/mL Normal < 0.015 TROPONIN-I Result Comment: TROPONIN-I EXPECTED VALUES <0.045 Negative 0.045 - 0.590 Consistent with Cardiac Damage > OR = 0.600 Critical Value Not every elevated troponin is indicative of OR. These values should be used with clinical judgement in examining the patient's clinical picture for diagnosis. To establish a diagnosis of OR versus myocardial injury, there must be a demonstrated rise and/or fall in the troponin values, in addition to ischemic symptoms, EKG changes, new regional wall motion abnormality, and/or angiographical evidence. PLEASE NOTE: REFERENCE RANGES EDITED 17 Performed By: #### L500.2500, L501.4010 #### [facility] [address] [place], [address] CTA NECK W/WO Observed: 06/08/2018 Status: F Source: [place] CONTRAST 10:20 AM [facility] REPOSITORY [facility] Imaging Services [address] [place] [address] CTA Neck W/WO Contrast MR#: [id number] Acct: [id number] Name: YADI WESTFALL Rep #: [id number] : 1945 F 72 From: Tyson Lim MD PCP: Chaz BERG,Bakari Correa Status: ADM MAGALIE Study: CTA Neck W/WO Contrast Date of Exam: 06/08/18 Exam# [id number] Ordering Dr: Michael Ocampo MD STUDY: CTA NECK WITH CONTRAST REASON FOR EXAM: Female, 72 years old. CVA. RADIATION DOSAGE (If Supplied By Facility): CTDIvol = ( 16.77 ) mGy, DLP = ( 741.44 ) mGycm TECHNIQUE: CT angiography with multi-detector data acquisition was performed from the aortic arch to the skull base following intravenous administration of 100ML ml of Isovue 300 contrast. MIP images were reconstructed from the axial data set. Post-processing of the angiographic images was performed, with multiplanar reformation and 3D reconstruction. Individualized dose optimization techniques were used for this CT. COMPARISON: None. FINDINGS: AORTIC ARCH: There is atherosclerotic calcific plaque formation of the aortic arch and great vessels arising from the aortic arch, without a hemodynamically significant stenosis. There is a normal origin of the brachiocephalic, left common carotid, and left subclavian arteries. RIGHT CAROTID ARTERIES: Normal right common carotid artery (CCA). Normal right common carotid bulb. There is extensive atherosclerotic plaque formation of the origin of the right internal carotid artery with an estimated stenosis of greater than 70%. Normal visualized cervical portion of the right internal carotid artery. Normal origin of the right external carotid artery (ECA). LEFT CAROTID ARTERIES: Normal left common carotid artery (CCA). Normal left common carotid bulb. There is mild atherosclerotic plaque formation of the origin of the left internal carotid artery with less than 50% cross sectional diameter stenosis. Normal visualized cervical portion of the left internal carotid artery. Normal origin of the left external carotid artery (ECA). VERTEBRAL ARTERIES: There is enhancement within the bilateral vertebral arteries with a small right vertebral artery, and a dominant left vertebral artery. IMPRESSION: Calcific plaque at the origin of the right internal carotid artery causing greater than 70% luminal narrowing. N.B. : The above information has been verbally conveyed by Tyson Lim MD to Michael Ocampo on 06/08/2018 10:50:29 (ET). Electronically Signed: Tyson Lim MD at 10:50 EST Tel [phone], Service support , STUDY: CTA OF THE BRAIN REASON FOR EXAM: Female, 72 years old. Findings suggestive of CVA. RADIATION DOSAGE (If Supplied By Facility): CTDIvol = ( ) mGy, DLP = ( ) mGycm TECHNIQUE: CT angiography was performed with a multi-detector CT scanner. Data acquisition was obtained from the skull base through the vertex following intravenous administration of 100 ml of Isovue-300. MIP images were reconstructed from the axial data set. Post-processing of the angiographic images was performed, with multiplanar reformation and 3D reconstruction. Individualized dose optimization techniques were used for this CT. COMPARISON: None. FINDINGS: Normal bilateral petrous carotid arteries. There is calcified plaque formation of the right cavernous carotid artery, without a cross-sectional luminal stenosis. There is calcified plaque formation of the left cavernous carotid artery, without a cross-sectional luminal stenosis. Normal right A1 segments of the anterior cerebral artery. Normal left A1 segments of the anterior cerebral artery. Normal intact anterior communicating artery (ACOM). Normal bilateral A2 segments of the anterior cerebral arteries. Normal right M1 and M2 segments of the middle cerebral arteries, with a normal M1 bifurcation. Normal left M1 and M2 segments of the middle cerebral arteries, with a normal M1 bifurcation. Normal right posterior communicating artery (PCOM). Normal left posterior communicating artery (PCOM). Normal bilateral vertebral arteries. Normal basilar artery with a normal basilar bifurcation. The visualized bilateral superior cerebellar (SCA) arteries are normal. Normal bilateral P1, P2 and visualized P3 segments of the posterior cerebral arteries. There is no demonstrated aneurysm of the [place] of [place]. CT/CTA Neck W/WO Contrast IMPRESSION: Normal [place] without a demonstrated aneurysm or hemodynamically significant stenosis. N.B. : The above information has been verbally conveyed by Tyson Lim MD to Michael Ocampo on 06/08/2018 10:50:29 (ET). Electronically Signed: Tyson Lim MD at 10:52 EST Tel [phone], Service support , CC: Michael Ocampo MD; Bakari Ware MD Swing Grinder: Signed CTA HEAD W/WO Observed: 06/08/2018 Status: F Source: [place] CONTRAST 10:20 AM [facility] REPOSITORY [facility] Imaging Services [address] [place] [address] CTA Head W/WO Contrast MR#: [id number] Acct: [id number] Name: YADI WESTFALL Rep #: [id number] : 1945 F 72 From: Tyson Lim MD PCP: Bakari Ware MD, Chi Status: ADM MAGALIE Study: CTA Head W/WO Contrast Date of Exam: 06/08/18 Exam# [id number] Ordering Dr: Michael Ocampo MD STUDY: CTA NECK WITH CONTRAST REASON FOR EXAM: Female, 72 years old. CVA. RADIATION DOSAGE (If Supplied By Facility): CTDIvol = ( 16.77 ) mGy, DLP = ( 741.44 ) mGycm TECHNIQUE: CT angiography with multi-detector data acquisition was performed from the aortic arch to the skull base following intravenous administration of 100ML ml of Isovue 300 contrast. MIP images were reconstructed from the axial data set. Post-processing of the angiographic images was performed, with multiplanar reformation and 3D reconstruction. Individualized dose optimization techniques were used for this CT. COMPARISON: None. FINDINGS: AORTIC ARCH: There is atherosclerotic calcific plaque formation of the aortic arch and great vessels arising from the aortic arch, without a hemodynamically significant stenosis. There is a normal origin of the brachiocephalic, left common carotid, and left subclavian arteries. RIGHT CAROTID ARTERIES: Normal right common carotid artery (CCA). Normal right common carotid bulb. There is extensive atherosclerotic plaque formation of the origin of the right internal carotid artery with an estimated stenosis of greater than 70%. Normal visualized cervical portion of the right internal carotid artery. Normal origin of the right external carotid artery (ECA). LEFT CAROTID ARTERIES: Normal left common carotid artery (CCA). Normal left common carotid bulb. There is mild atherosclerotic plaque formation of the origin of the left internal carotid artery with less than 50% cross sectional diameter stenosis. Normal visualized cervical portion of the left internal carotid artery. Normal origin of the left external carotid artery (ECA). VERTEBRAL ARTERIES: There is enhancement within the bilateral vertebral arteries with a small right vertebral artery, and a dominant left vertebral artery. IMPRESSION: Calcific plaque at the origin of the right internal carotid artery causing greater than 70% luminal narrowing. N.B. : The above information has been verbally conveyed by Tyson Lim MD to Michael Ocampo on 06/08/2018 10:50:29 (ET). Electronically Signed: Tyson Lim MD at 10:50 EST Tel [phone], Service support , STUDY: CTA OF THE BRAIN REASON FOR EXAM: Female, 72 years old. Findings suggestive of CVA. RADIATION DOSAGE (If Supplied By Facility): CTDIvol = ( ) mGy, DLP = ( ) mGycm TECHNIQUE: CT angiography was performed with a multi-detector CT scanner. Data acquisition was obtained from the skull base through the vertex following intravenous administration of 100 ml of Isovue-300. MIP images were reconstructed from the axial data set. Post-processing of the angiographic images was performed, with multiplanar reformation and 3D reconstruction. Individualized dose optimization techniques were used for this CT. COMPARISON: None. FINDINGS: Normal bilateral petrous carotid arteries. There is calcified plaque formation of the right cavernous carotid artery, without a cross-sectional luminal stenosis. There is calcified plaque formation of the left cavernous carotid artery, without a cross-sectional luminal stenosis. Normal right A1 segments of the anterior cerebral artery. Normal left A1 segments of the anterior cerebral artery. Normal intact anterior communicating artery (ACOM). Normal bilateral A2 segments of the anterior cerebral arteries. Normal right M1 and M2 segments of the middle cerebral arteries, with a normal M1 bifurcation. Normal left M1 and M2 segments of the middle cerebral arteries, with a normal M1 bifurcation. Normal right posterior communicating artery (PCOM). Normal left posterior communicating artery (PCOM). Normal bilateral vertebral arteries. Normal basilar artery with a normal basilar bifurcation. The visualized bilateral superior cerebellar (SCA) arteries are normal. Normal bilateral P1, P2 and visualized P3 segments of the posterior cerebral arteries. There is no demonstrated aneurysm of the [place] of [place]. CT/CTA Head W/WO Contrast IMPRESSION: Normal [place] without a demonstrated aneurysm or hemodynamically significant stenosis. N.B. : The above information has been verbally conveyed by Tyson Lim MD to Michael Ocampo on 06/08/2018 10:50:29 (ET). Electronically Signed: Tyson Lim MD at 10:52 EST Tel [phone], Service support , CC: Michael Ocampo MD; Bakari Ware MD Swing Grinder: Signed BRAIN/HEAD WITHOUT Observed: 06/08/2018 Status: F Source: [place] CONTRAST 10:18 AM [facility] REPOSITORY [facility] Imaging Services [address] [place] [address] Brain/Head without Contrast MR#: [id number] Acct: [id number] Name: YADI WESTFALL Rep #: [id number] : 1945 F 72 From: Tyson Lim MD PCP: Chaz BERG,Bakari Correa Status: REG ER Study: Brain/Head without Contrast Date of Exam: 06/08/18 Exam# [id number] Ordering Dr: Michale Ocampo MD STUDY: CT BRAIN WITHOUT CONTRAST REASON FOR EXAM: Female, 72 years old. Possible CVA. RADIATION DOSAGE (If Supplied By Facility): CTDIvol = ( 44.99 ) mGy, DLP = ( 779.24 ) mGycm TECHNIQUE: Transaxial CT imaging of the brain was performed without administration of intravenous contrast material. Individualized dose optimization techniques were used for this CT. COMPARISON: Comparison is made with prior study dated November 16, 2016. FINDINGS: Normal soft tissue structures. There is hyperostosis frontalis internus. There is mild cerebral atrophy with widening of the extra- axial spaces and ventricular dilatation. There are areas of decreased attenuation within the white matter tracts of the supratentorial brain, consistent with microvascular disease changes. Old lacunar infarct in the body of the left caudate nucleus. Normal brainstem. Normal cerebellum. There is no intracranial hemorrhage. There are no findings of an acute ischemic infarction. Normal visualized paranasal sinuses. CT/Brain/Head without Contrast IMPRESSION: Chronic involutional changes of the brain. N.B. : The above information has been verbally conveyed by Tyson Lim MD to Michael Ocampo on 06/08/2018 10:44:50 (ET). Electronically Signed: Tyson Lim MD at 10:46 EST Tel [phone], Service support , CC: Michael Ocampo MD; Bakari Ware MD Swing Grinder: Signed CHEST 1 VIEW Observed: 06/08/2018 Status: F Source: [place] 10:18 AM [facility] REPOSITORY [facility] Imaging Services [address] [place] [address] Chest 1 View MR#: [id number] Acct: [id number] Name: YADI WESTFALL Rep #: [id number] : 1945 F 72 From: Tyson Lim MD PCP: Bakari Ware MD, Chi Status: REG ER Study: Chest 1 View Date of Exam: 06/08/18 Exam# [id number] Ordering Dr: Michael Ocampo MD STUDY: X-RAY CHEST REASON FOR EXAM: Female, 72 years old. Facial droop. TECHNIQUE: Single AP portable view of the chest. COMPARISON: Comparison is made with prior study dated May 12, 2017. FINDINGS: EKG electrodes are seen. Limited inspiratory effort. Stable mild increased linear markings at the left lung base suggestive of left basilar atelectasis and/or scarring. Scattered calcified granulomas. There is moderate cardiac enlargement. Normal mediastinum and iliana. Normal visualized pulmonary arteries. There is atherosclerotic tortuosity of the aortic arch and descending thoracic aorta. There are diffuse degenerative changes of the visualized thoracic spine. Normal visualized ribs, clavicles, and shoulders. There is no demonstrated abnormality of the visualized soft tissue structures of the upper abdomen. RAD/Chest 1 View IMPRESSION: Cardiomegaly. Stable increased markings at the left lung base suggestive of linear atelectasis and/or scarring. Electronically Signed: Tyson Lim MD at 11:16 EST Tel [phone], Service support , CC: Michael Ocampo MD; Bakari Ware MD Swing Grinder: Signed BEDSIDE GLUCOSE Collected: 06/08/2018 Status: F Source: [place] 10:10 AM [facility] REPOSITORY TYPE CODE TESTS RESULT OUT OF REFERENCE UNITS RANGE LAB L501.080 70-110 mg/dL High BEDSIDE GLU 221 Result Comment: MANAGEMENT OF PATIENT CARE PER NURSING PROTOCOL Performed By: #### L501.080 #### [facility] Point of Care [address] [place] [address] BEDSIDE GLUCOSE Collected: 06/08/2018 Status: F Source: [place] 9:50 AM [facility] REPOSITORY TYPE CODE TESTS RESULT OUT OF REFERENCE UNITS RANGE LAB L501.080 70-110 mg/dL High BEDSIDE GLU 242 Result Comment: MANAGEMENT OF PATIENT CARE PER NURSING PROTOCOL Performed By: #### L501.080 #### [facility] Point of Care [address] [place], [place] [address] PELVIS 1 OR 2 VIEWS Observed: 06/08/2018 Status: F Source: [place] 8:28 AM [facility] REPOSITORY [facility] Imaging Services [address] [place] [address] Pelvis 1 or 2 Views MR#: [id number] Acct: [id number] Name: YADI WESTFALL Rep #: [id number] : 1945 F 72 From: Tyson Lim MD PCP: Chaz BERG,Bakari Correa Status: [facility] Study: Pelvis 1 or 2 Views Date of Exam: 06/08/18 Exam# [id number] Ordering Dr: Connor Brito MD STUDY: X-RAY - PELVIS REASON FOR EXAM: Female, 72 years old. InterStim therapy. TECHNIQUE: AP and lateral views were obtained intraoperatively. COMPARISON: None. FINDINGS: The tip of the electrode is seen along the superior posterior aspect of the left hemipelvis. RAD/Pelvis 1 or 2 Views IMPRESSION: Intraoperative imaging provided for InterStim therapy. Electronically Signed: Tyson Lim MD at 9:29 EST Tel [phone], Service support , CC: Connor Brito MD; Bakari Ware MD Swing Grinder: Signed OPERATIVE REPORT Observed: 06/08/2018 Status: F Source: [place] 8:25 AM [facility] REPOSITORY [facility] Medical Records Department [address] [place] [address] Operative Report 06/08/18 0820 MR#: [id number] Acct: [id number] Name: YADI WESTFALL Rep #: [id number] : 1945 72 From: Connor Brito MD PCP: Bakari Ware MD, Chi Status: REG SD Y Location: [place] [address] Report of Operation Date of Procedure: 06/08/18 Pre-Operative Diagnosis: Overactive bladder and urge incontinence Post-Operative Diagnosis: The same Surgery/Procedure Performed:: Stage I InterStim Description of Surgical Findings:: 72-year-old female with a history of overactive bladder and urge incontinence she is tried multiple medications as well failed she has to wear depends all the time and is wet constantly. She is agreeable to trying InterStim therapy to see if this will help her bladder control she understands that it may not be helpful. So today were to proceed with stage I InterStim therapy and placement of the lead and a temporary extension to see if this will improve her bladder control. 72-year-old female taken back to the operating room she was placed facedown on the table make sure all her pressure points are padded she underwent sedation we then tilted the table to make sure that the lower back was flat and then we came with fluoroscopy identified the sacrum the sacral promontory's in both sides placed the needle electrode between the 2 marked this on the skin and then marked out the lateral edges of the foramen entrance is along the sacrum. I then marched up in the midline we went lateral and came down with the first needle what appeared to be the S3 location and the needle dropped down into the foramen quite easily we stimulated on very low stimulation we got good toe reflexes and then we inserted increase his stimulation we got bharti response. Appear to be S3 so then we went one lower down and dropped the needle electrode through and got bharti but no toe so we thought this would be S4. So then we stayed with the S3 lead we took out the S4 site we put the stabilizer through the needle electrode remove the needle electrode made an incision in the skin and then introducer stylette the marker in the stylette was then placed midway between the anterior and posterior part of the bone and the sacrum and then we advanced the electrode through this so that there was 0 was above the bone and 1 2 and 3 were right below we checked AP and lateral and the placement of the lead appeared to be appropriate and we checked 012 and 3 got good toe response in all 3 of them and also we checked 012 and 3 got good bharti response on 3 out of 4. We then left the electrode in place pulled back on the sheath we then tunneled the electrode to the temporary pocket connected the electrode with the boot to the extension and then tunneled the extension to the exit point superior to the entry point. We closed our incisions with subcuticular stitches with the secure the temporary extension electrode to the Bluetooth device and then taped this to the back with Steri-Strips and also tape. Once we secured all the tape down then patient anesthetic was reversed she is taken back to PACU good condition she undergoes setting of the InterStim therapy and will see her in a week to review the results of the trial and to see if we either proceed with stage II or removal of the InterStim. Type of Anesthesia:: Local MAC Drains: none - Admit VTE Documentation VTE Present on Admission: No 06/08/18 0825 <Electronically signed by Connor Brito MD> Date Connor Brito MD CC: Connor Brito MD; Bakari Ware MD Signed DISCHARGE INSTRUCTION Observed: 06/08/2018 Status: F Source: [place]ORE 7:29 AM [facility] Medical Records Department [address] [place] [address] Instructions for Home/Discharge Instructions 06/08/18 0727 MR#: [id number] Acct: [id number] Name: YADI WESTFALL Rep #: [id number] : 1945 72 From: Connor Brito MD PCP: Chaz BERG,Bakari Correa Status: [place] [facility] [place] Diet: Light diet - advance as tolerated Discharge Activity: May Shower - keep back dry Call your doctor if you observe: Fever of 101 or Higher Suture Line Care: Avoid Pulling/Pushing, Avoid Pinching/Bending Allergies/Adverse Reactions: Allergies promethazine HCl [From Phenergan] Adverse Reaction (Verified 06/01/18 11:31) Nausea Medications to take at Discharge Aspirin [Aspirin, Baby] 81 mg PO DAILY@0800 #30 tab.chew 03/09/16 Atorvastatin Calcium [Lipitor] 40 mg PO QHS #30 tablet 03/09/16 Clopidogrel Bisulfate [Plavix] 75 mg PO DAILY #30 tablet 03/09/16 Glimepiride [Amaryl] 1 mg PO DAILY #30 tablet 03/09/16 Lisinopril [Zestril] 20 mg PO DAILY #30 tablet 03/09/16 Polyethylene Glycol 3350 [Miralax] 17 gm PO DAILY PRN 05/12/17 Escitalopram Oxalate [Lexapro] 20 mg PO QHS 06/14/17 Gabapentin [Neurontin] 200 mg PO TIDCM 06/14/17 Baclofen 20 mg PO TID 06/01/18 Galantamine HBr [Galantamine ER] 8 mg PO BID 06/01/18 Melatonin 12 mg PO QHS 06/01/18 Memantine HCl [Namenda] 10 mg PO BID 06/01/18 Multivitamin [Multiple Vitamins] 1 each PO DAILY 06/01/18 Acetaminophen [Tylenol Extra Strength] 500 mg PO Q4H PRN PRN #20 tablet 06/08/18 Cephalexin [Keflex] 500 mg PO Q8 #15 capsule 06/08/18 Ibuprofen 600 mg PO Q6H PRN PRN #20 tablet 06/08/18 The following prescriptions were given: Acetaminophen [Tylenol Extra Strength] 500 mg PO Q4H PRN PRN #20 tablet PRN Reason: Pain Ibuprofen 600 mg PO Q6H PRN PRN #20 tablet PRN Reason: Pain Cephalexin [Keflex] 500 mg PO Q8 #15 capsule Primary Care Physician: Bakari Ware Chi, MD [Primary Care Provider] - Test Results: Test results from this visit will be discussed in further detail at your follow-up appointment, if applicable. Please Follow Up With: Connor Brito MD When: next week to see if [facility] is working 06/08/18 0729 <Electronically signed by Connor Brito MD> Date Connor Brito MD CC: Bakari Ware MD BEDSIDE GLUCOSE Collected: 06/08/2018 Status: F Source: MOORE 6:50 AM [facility] REPOSITORY TYPE CODE TESTS RESULT OUT OF REFERENCE UNITS RANGE LAB L501.080 70-110 mg/dL High BEDSIDE GLU 236 Result Comment: MANAGEMENT OF PATIENT CARE PER NURSING PROTOCOL Performed By: #### L501.080 #### [facility] Point of Care [facility] [place] [address] Observed: 05/27/2018 Status: F Source: [place] CULTURE, URINE 10:30 AM [facility] REPOSITORY Urine Culture ORGANISM 1: Presumptive E. coli Keyes Count >100,000 Presumptive E. coli: REACTION Amoxacillin/Clavulanic Acid $ <=2 S Ampicillin $ <=2 S Ampicillin/Sulbactam $ <=2 S Cefazolin $ <=4 S Cefepime $ <=1 S Ceftriaxone $ <=1 S Ciprofloxacin $ <=0.25 S ESBL - Ertapenim $$$ <=0.5 S Gentamicin $ <=1 S Imipenem *NF <=0.25 S Levofloxacin $ <=0.12 S Nitrofurantoin $ <=16 S Piperacillin/Tazobactam $$ <=4 S Tobramycin $ <=1 S Trimethoprim/Sulfametho $ <=20 S (NF) indicates non-formulary drug at [facility]. Approval by Infectious Disease Specialist required before non-formulary drugs may be ordered and/or dispensed. Performed By: #### M100.0650 #### [facility] [address] [place], [address] PROGRESS Observed: 05/17/2018 Status: COMPLETED Source: [place] 9:10 AM [facility] REPOSITORY HNO ID: [id number] Author: Etelvina Mckeon [facility] Service: (none) Author Type: (none) Type: Progress Notes Filed: 05/17/2018 9:10 AM Note Text: Patient is seeing a different physician. I removed Dr. Bradford as PCP PROGRESS Observed: 05/12/2018 Status: COMPLETED Source: [place] 9:06 AM [facility] REPOSITORY HNO ID: [id number] Author: Etelvina Mckeon [facility] Service: (none) Author Type: (none) Type: Progress Notes Filed: 05/17/2018 9:10 AM Note Text: [facility] CARE GAP REGISTRY DOCUMENTATION (OUTSIDE TEAMLET) Provider Action/FYI: PSR Action/FYI: *schedule physical appointment with labs prior *discuss HM Patient identified by name and date of . Last BP/Labs: Blood Pressure: Last 3 Encounter BP Readings: Date: BP: 06/09/2017 128/85 12/17/2016 118/78 10/09/2016 130/70 Lipids: Cholesterol, Total (mg/dL) Date Value 08/17/2015 Test sent to [facility]. 12/05/2014 113 HDL Cholesterol (mg/dL) Date Value 08/17/2015 Test sent to [facility]. 12/05/2014 60 LDL Cholesterol (mg/dL) Date Value 08/17/2015 Test sent to [facility]. 12/05/2014 46 Triglyceride (mg/dL) Date Value 08/17/2015 Test sent to [facility]. 12/05/2014 35 HGB A1C: Lab Results Component Value Date HBA1C 6.5 05/21/2016 HBA1C Test sent to [facility]. 08/17/2015 HBA1C 6.4 12/05/2014 HBA1C 6.7 06/18/2014 TSH: TSH (uU/mL) Date Value 06/18/2014 0.930 09/15/2013 0.854 ) ? Patient has the following care gap registry disease diagnosis:DM ? Patient has the following open care gaps: Health Maintenance Due: BP CONTROLLED (<130/80) due on 11/10/1963 DTAP,TDAP,TD(1 - Tdap) due on 1964 HEPATITIS C SCREENING due on 1989 ADULT PREVNAR-13 due on 2010 PAP EVERY 3 YEARS (65-80 YEARS OLD) due on 2010 MAMMOGRAM due on 03/04/2013 DIABETIC FOOT EXAM due on 09/15/2014 URINE ALBUMIN:CREATININE RATIO due on 06/15/2015 - order pending HBA1C due on 11/18/2016 - order pending LDL CHOLESTEROL due on 11/16/2017 - order pending DILATED RETINAL EXAM due on 03/08/2018 INFLUENZA(1) due on 03/12/2018 COLORECTAL CANCER SCREENING,SEE MODIFIER due on 04/04/2018 STATIN MED ADHERENCE due on 05/12/2018 DIABETES MED ADHERENCE due on 05/12/2018 ? Last office visit: 06/09/2017 ? Future office visit:Physical with labs prior Etelvina Mckeon Cma CNPTOUTREACH Observed: 05/12/2018 Status: COMPLETED Source: [place] 12:00 AM [facility] REPOSITORY Patient Outreach (INTMWS) YADI WESTFALL ([id number]) 1945 F Date Time Provider Department 05/12/18 ETELVINA MCKEON) INTMWS During your visit today, we recorded the following information about you: Etelvina Mckeon Cma 05/17/2018 9:10 AM Signed [facility] GAP REGISTRY DOCUMENTATION (OUTSIDE TEAMLET) Provider Action/FYI: PSR Action/FYI: *schedule physical appointment with labs prior *discuss HM Patient identified by name and date of . Last BP/Labs: Blood Pressure: Last 3 Encounter BP Readings: Date: BP: 06/09/2017 128/85 12/17/2016 118/78 10/09/2016 130/70 Lipids: Cholesterol, Total (mg/dL) Date Value 08/17/2015 Test sent to [facility]. 12/05/2014 113 HDL Cholesterol (mg/dL) Date Value 08/17/2015 Test sent to [facility]. 12/05/2014 60 LDL Cholesterol (mg/dL) Date Value 08/17/2015 Test sent to [facility]. 12/05/2014 46 Triglyceride (mg/dL) Date Value 08/17/2015 Test sent to [facility]. 12/05/2014 35 HGB A1C: Lab Results Component Value Date HBA1C 6.5 05/21/2016 HBA1C Test sent to [facility]. 08/17/2015 HBA1C 6.4 12/05/2014 HBA1C 6.7 06/18/2014 TSH: TSH (uU/mL) Date Value 06/18/2014 0.930 09/15/2013 0.854 ) ? Patient has the following care gap registry disease diagnosis:DM ? Patient has the following open care gaps: Health Maintenance Due: BP CONTROLLED (<130/80) due on 11/10/1963 DTAP,TDAP,TD(1 - Tdap) due on 1964 HEPATITIS C SCREENING due on 1989 ADULT PREVNAR-13 due on 2010 PAP EVERY 3 YEARS (65-80 YEARS OLD) due on 2010 MAMMOGRAM due on 03/04/2013 DIABETIC FOOT EXAM due on 09/15/2014 URINE ALBUMIN:CREATININE RATIO due on 06/15/2015 - order pending HBA1C due on 11/18/2016 - order pending LDL CHOLESTEROL due on 11/16/2017 - order pending DILATED RETINAL EXAM due on 03/08/2018 INFLUENZA(1) due on 03/12/2018 COLORECTAL CANCER SCREENING,SEE MODIFIER due on 04/04/2018 STATIN MED ADHERENCE due on 05/12/2018 DIABETES MED ADHERENCE due on 05/12/2018 ? Last office visit: 06/09/2017 ? Future office visit:Physical with labs prior Etelvina Mckeon [employer] Etelvina Mckeon [employer] 05/17/2018 9:10 AM Signed Patient is seeing a different physician. I removed Dr. Bradford as PCP Allergies As of Date: 05/12/2018 Noted Allergy Reaction PHENERGAN (PROMETHAZINE) 09/01/2007 5 - Intolerance PROPRANOLOL 03/17/2012 14 - Other: See Comments Comments: leg swelling and maybe dizziness (?) Date Reviewed: 04/02/2017 Reviewed by: Janis Mota Ma - Fully Assessed Reason for Visit: PHMA/Care Gap Outreach [[id number]] Primary Visit Diagnosis:Essential hypertension [I10] Other Visit Diagnosis:Type 2 diabetes mellitus with diabetic neuropathy, unspecified whether prison insulin use (HCC) [E11.40] Order(s):HGB A1C [NEQLC9L] Order #: [id number] FUTURE ALBUMIN/CREAT RATIO RND UR [SQUACR] Order #: [id number] FUTURE BASIC METABOLIC PNL [SQBMP] Order #: [id number] FUTURE LIPID PANEL BASIC [SQLIPB] Order #: [id number] FUTURE Prescriptions as of 05/12/2018 Sig: CLOPIDOGREL 75 MG TABLET Take 1 tablet by mouth once d* COMPOUNDED PRESCRIPTION [facility] BED WI* COMPOUNDED PRESCRIPTION WHEEL CHAIR WITH LEG LIFTS TO* GABAPENTIN 100 MG CAPSULE Take 2 capsules by mouth thre* GLIMEPIRIDE 1 MG TABLET TAKE 1 TABLET BY MOUTH EVERY * LANCETS UAD to test blood sugar up to* ZOLPIDEM 5 MG TABLET Take 1 tablet by mouth daily * BUPROPION XL 150 MG TAB Take 1 tablet by mouth once d* TIZANIDINE 4 MG TABLET Take 1 tablet by mouth every * TIZANIDINE 4 MG TABLET Take 1 tablet by mouth every * COMPOUNDED PRESCRIPTION Order: Geriatric assessment * METFORMIN 500 MG TABLET Take 1 tablet by mouth daily * ATORVASTATIN 40 MG TABLET TAKE 1 TABLET BY MOUTH AT BED* POLYETHYLENE GLYCOL 3350 17 G* Mix 1 scoop (17 gm) in liquid* AMLODIPINE 5 MG TABLET Take 2 tablets by mouth once * OXYBUTYNIN CHLORIDE ER 10 MG * Take 10 mg by mouth twice teo* LISINOPRIL 20 MG TABLET Take 1 tablet by mouth twice * ESCITALOPRAM 20 MG TABLET Take 1 tablet by mouth once d* ACETAMINOPHEN 325 MG TABLET Take 650 mg by mouth every 6 * ASPIRIN 81 MG TABLET,DELAYED * Take 1 tablet by mouth once d* COMPOUNDED PRESCRIPTION Lift chair. Dx. I69.3 M21.37* COMPOUNDED PRESCRIPTION group home - diabetic ma* COMPOUNDED PRESCRIPTION Left AFO brace, molded. Diag* COMPOUNDED PRESCRIPTION Left custom AFO. Dx left valery* COMPOUNDED PRESCRIPTION Physical Therapy--at [facility]* COMPOUNDED PRESCRIPTION costum AFO dx is CVA Problem List As Of Date 05/12/2018 Noted Resolved DM w/o Complication Type II [E11.9] INVALID FOR*09/22/2013 More... Essential hypertension [I10] INVALID FOR* More... Depressive disorder, not elsewhere classified [*INVALID FOR*09/22/2013 More... Unspecified sleep apnea [G47.30] INVALID FOR* More... OBESITY NOS [E66.9] INVALID FOR* More... More... Backache, unspecified [M54.9] INVALID FOR*09/15/2013 More... Tobacco use disorder [F17.200] INVALID FOR* More... Diverticulosis of Colon (without Mention of Hem*INVALID FOR* More... OSTEOPENIA [M89.9, M94.9] INVALID FOR* More... GERD (Gastroesophageal Reflux Disease) [K21.9] INVALID FOR* Rosacea [L71.9] INVALID FOR* Yeast infection of the skin [B37.2] INVALID FOR*09/15/2013 Lung granuloma [J84.10] INVALID FOR* Diabetes mellitus with neuropathy [E11.40] INVALID FOR* More... Vaginal dryness [N89.8] INVALID FOR* More... Mastodynia [N64.4] INVALID FOR* Depression [F32.9] INVALID FOR* More... 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 CLEAN CATCH TYPE CODE TESTS RESULT OUT OF RANGE REFERENCE UNITS LAB L400.3000 Yellow COLOR Normal Yellow LAB L400.3050 Clear Normal CLARITY Sl. Cloudy LAB L400.3200 Normal mg/dl Normal GLUCOSE, UR Normal LAB L400.3300 Negative mg/dL Normal BILIRUBIN URINE Negative LAB L400.3400 Negative mg/dl Normal KETONE UR Negative LAB L400.3465 1.002-1.030 Normal SP.GR. DIPSTX 1.015 LAB L400.3550 5.0 - 8.0 pH UR Normal 6.0 LAB L400.3600 Negative mg/dl High PROT 30 DIPSTX LAB L400.3700 Normal mg/dl Normal UROBILI Normal LAB L400.3750 Negative Normal NITRITE UR Negative LAB L400.3780 Negative /ul High 10 OCCULT BLOOD-UR LAB L400.3800 Negative /ul High LEUK ESTERASE 500 LAB L400.4050 0-5 /hpf WBC Normal 25-50 SEEN LAB L400.4100 0-5 /hpf Normal RBC-UA 0-5 SEEN LAB L400.4150 5-10 /hpf SQUAM Normal EPI 0-5 SEEN LAB L400.4300 None Seen /hpf 2+ Normal BACTERIA LAB L400.4350 <or=2+ /hpf 1+ Normal MUCUS, URINE Performed By: #### L400.0001 #### [facility] [address] [place], [address] Observed: 04/19/2018 Status: F Source: [place] CULTURE, URINE 1:33 PM [facility] REPOSITORY Urine Culture ORGANISM 1: Presumptive E. coli Keyes Count >100,000 Presumptive E. coli: REACTION Amoxacillin/Clavulanic Acid $ 4 S Ampicillin $ 4 S Ampicillin/Sulbactam $ 4 S Cefazolin $ <=4 S Cefepime $ <=1 S Ceftriaxone $ <=1 S Ciprofloxacin $ <=0.25 S ESBL - Ertapenim $$$ <=0.5 S Gentamicin $ <=1 S Imipenem *NF <=0.25 S Levofloxacin $ <=0.12 S Nitrofurantoin $ <=16 S Piperacillin/Tazobactam $$ <=4 S Tobramycin $ <=1 S Trimethoprim/Sulfametho $ <=20 S (NF) indicates non-formulary drug at [facility]. Approval by Infectious Disease Specialist required before non-formulary drugs may be ordered and/or dispensed. Performed By: #### M100.0650 #### [facility] [address] [place], [address] ANKLE MIN 3 VIEWS Observed: 04/14/2018 Status: F Source: [place] 2:42 PM [facility] REPOSITORY [facility] Imaging Services [address] [place] [address] Ankle min 3 Views MR#: [id number] Acct: [id number] Name: YADI WESTFALL Rep #: [id number] : 1945 F 72 From: Alejandrina Mota MD PCP: Bakari Ware MD, Chi Status: REG CLI Study: Ankle min 3 Views Date of Exam: 04/14/18 Exam# [id number] Ordering Dr: Bakari Ware MD STUDY: X-RAY - LEFT ANKLE REASON FOR EXAM: Female, 72 years old. Chronic pain. TECHNIQUE: 3 view(s) of the ankle. COMPARISON: None. FINDINGS: The bones are diffusely demineralized. Normal medial and lateral malleoli. Normal tibiotalar articulation and ankle mortise. There is a plantar calcaneal enthesophyte. There are degenerative changes of the midfoot. There is diffuse soft tissue swelling. There are vascular calcifications. RAD/Ankle min 3 Views IMPRESSION: Diffusely demineralized bones. Diffuse soft tissue swelling. Atherosclerosis. Electronically Signed: Alejandrina Mota MD at 16:42 EDT Tel , Service support , CC: Bakari Ware MD Swing Grinder: Signed FOOT MIN 3 VIEWS Observed: 04/14/2018 Status: F Source: [place] 2:42 PM [facility] REPOSITORY [facility] Imaging Services [address] [place] [address] Foot min 3 Views MR#: [id number] Acct: [id number] Name: YADI WESTFALL Rep #: [id number] : 1945 F 72 From: Rolan Rascon MD PCP: Bakari Ware MD, Chi Status: REG CLI Study: Foot min 3 Views Date of Exam: 04/14/18 Exam# [id number] Ordering Dr: Bakari Ware MD STUDY: X-RAY - LEFT FOOT CLINICAL: Female, 72 years old. Chronic pain TECHNIQUE: 3 view(s) of the foot. COMPARISON: None. FINDINGS: The bones are diffusely demineralized. Normal talus, calcaneus, and tarsal bones. Normal visualized subtalar, talonavicular, calcaneocuboid, tarsal and tarsometatarsal articulations. Normal metatarsi. There is degenerative arthrosis of the metatarsophalangeal joint of the hallux . Normal tibial and fibular sesamoid bones. Normal interphalangeal joint of the great toe. Normal phalanges of the great toe. Normal second through fifth metatarsophalangeal joints. PIP and DIP joint arthrosis There is nonspecific soft tissue swelling, particularly in the dorsum above the metatarsals. RAD/Foot min 3 Views IMPRESSION: Diffuse osteopenia with degenerative arthrosis. No demonstrated fracture. There is however nonspecific soft tissue swelling particularly in the dorsum of the foot and a subtle occult fracture cannot be excluded. Electronically Signed: George Rascon MD at 10:24 EDT , Service support , CC: Bakari Ware MD Swing Grinder: Signed CBC W/DIFF, AUTOMATED Collected: 04/14/2018 Status: F Source: [place] 1:05 PM [facility] REPOSITORY TYPE CODE TESTS RESULT OUT OF RANGE REFERENCE UNITS LAB L100.1000 4.4-11.0 K/mm3 Normal WBC 7.5 LAB L100.1200 4.2-5.4 M/mm3 Normal RBC 4.50 LAB L100.1300 12.0-15.0 g/dl Normal HGB 13.7 LAB L100.1400 37-47 % Normal HCT 41.6 LAB L100.1500 81-99 fL Normal MCV 92.4 LAB L100.1600 27.0-32.0 pg Normal MCH 30.4 LAB L100.1700 32-36 g/gl Normal MCHC 32.9 LAB L100.1810 11.6-14.6 % Normal RDW CV 12.8 LAB L100.1820 35.1-43.9 fl Normal RDW SD 42.1 LAB L100.1900 150-450 K/mm3 Normal PLT 207 LAB L100.2000 6.2-12.0 fl Normal MPV 11.7 LAB L100.2100 47-70 % High NEUT% 70.4 LAB L100.2200 19-41 % Normal LY% 22.9 LAB L100.2300 0-10 % Normal MONO% 4.4 LAB L100.2400 0-5 % Normal EO% 1.9 LAB L100.2500 0-1 % Normal BASO% 0.3 LAB L100.2550 0.0-0.9 % Normal IM GRAN % 0.100 Result Comment: IG% - Immature Granulocytes (promyelocytes, myelocytes and metamyelocytes) > 1% indicates that a LEFT SHIFT is Present. LAB L100.2620 2.0-7.7 X10 3/uL Normal Absolute Neut 5.3 LAB L100.2720 0.83-4.51 X10 3/ul Normal Absolute Lymph 1.71 Performed By: #### L100.0100 #### [facility] [address] [place], [place], [address] VITAMIN D,25 HYDROXY Collected: 04/14/2018 Status: F Source: [place] 1:05 PM [facility] REPOSITORY TYPE CODE TESTS RESULT OUT OF REFERENCE UNITS RANGE LAB L506.1000 29.95-100.01 ng/mL Low Vitamin D 22.6 25-OH Result Comment: Vitamin D 25(OH) Status Range Deficiency <20 ng/mL (50nmol/L) Insuffciency 20 - 30 ng/mL (50 - 75 nmol/L) Sufficiency 30 - 100 ng/mL (75 - 250 nmol/L) Toxicity >100 ng/mL (>250 nmol/L) Performed By: #### L506.1000 #### [facility] [address], [address] COMPREHENSIVE METABOLIC Collected: 04/14/2018 Status: F [facility]:05 PM [facility] REPOSITORY TYPE CODE TESTS RESULT OUT OF RANGE REFERENCE UNITS LAB L501.0100 74-106 mg/dL High GLU 207 Result Comment: Glucose result greater than or equal to 200 mg/dL suggests DIABETES MELLITUS per A.D.A. criteria. Please note revised GLUCOSE reference range effective 2017. LAB L501.1000 7-18 mg/dL High BUN 23 LAB L501.1100 0.55-1.02 mg/dL Normal CREAT,SERUM 0.80 Result Comment: The validity of the calculated GFR AND GFRAA in patients over 70 years has not been determined. Clinical correlation is essential. LAB L501.1110 >60 mL/min Normal EST GFR 75 Result Comment: Non- GFR Calc LAB L501.1115 >60 mL/min Normal EST GFR - AA 90 Result Comment: GFR Calc LAB L501.1300 10-20 RATIO High BUN/CRE 28.7 LAB L501.1500 6.4-8.2 g/dL T Normal PROT 7.2 LAB L501.1800 3.2-5.0 g/dL Normal ALB 3.3 LAB L501.1950 2.2-4.2 g/dL Normal GLOB 3.9 LAB L501.2000 0.9-2.4 RATIO Low A/G 0.8 LAB L501.2200 8.5-10.1 mg/dL CA Normal 8.7 LAB L501.4100 15-37 U/L Normal AST 16 LAB L501.4305 45-117 U/L Normal ALK P 55 LAB L501.4405 13-56 U/L Normal ALT 25 LAB L501.4600 0.20-1.00 mg/dL T Normal BILI 0.40 LAB L501.5300 136-145 mmol/L NA Normal 139 LAB L501.5600 3.5-5.1 mmol/L Low K 3.4 LAB L501.5900 98-107 mmol/L CL Normal 104 LAB L501.6100 21.0-32.0 mmol/L Normal CO2 30.0 LAB L501.6200 5-15 Normal GAP 5 Performed By: #### L500.4050, L501.9520 #### [facility] [address] [place], [address] THYROID STIM HORMONE Collected: 04/14/2018 Status: F Source: [place] (TSH) 1:05 PM [facility] REPOSITORY TYPE CODE TESTS RESULT OUT OF RANGE REFERENCE UNITS LAB L501.9520 0.358-3.74 uIU/mL Normal TSH 0.66 Performed By: #### L500.4050, L501.9520 #### [facility] [address] [place], [address] LUNG Observed: 04/08/2018 Status: F Source: [place] SCREENING 3:52 PM [facility] REPOSITORY [facility] Imaging Services [address] [place] [address] Lung Screening MR#: [id number] Acct: [id number] Name: YADI WESTFALL Rep #: [id number] : 1945 F 72 From: Ab Hylton DO PCP: Bakari Ware MD, Chi Status: [facility] Study: Low Dose CT Lung Screening Date of Exam: 04/08/18 Exam# [id number] Ordering Dr: Bakari Ware MD STUDY: LOW DOSE CT LUNG CANCER SCREENING REASON FOR EXAM: Female, 72 years old. 39 pack-year history, quit 8 years ago. RADIATION DOSAGE (If Supplied By Facility): CTDIvol = ( 3.02 ) mGy, DLP = ( 876.20 ) mGycm TECHNIQUE: No contrast was administered. Low dose technique was utilized (average mAS-38 and kVp 120). 1.25 mm axial source images with a slice interval of 1.25- mm were reconstructed in lung windows. 2.5 mm axial source images with a slice interval of 2.5-mm were reconstructed in lung windows. 5.0 mm axial source images with a slice interval of 5.0-mm were reconstructed in soft tissue windows. Nodule measured using lung windows on PACS and/or independent workstation with automated measurement of minimum and maximum diameter. Nodule measurement reported as average diameter rounded to the nearest whole number. Growth is defined as an increase ins size of greater than 1.5 mm. COMPARISON: Chest, May 12, 2017. NODULES: Nodule #: 1 Density: Solid Lung location: Right upper lobe: 0.1 cm from pleura Location in series: Series Number: 2 Image: 32 Size - D1 x D2 mm: 2.2 mm: 2 mm average diameter Margin: Smooth Shape: Rounded Calcification: Yes Fat: No Temporal comparison: No Nodule #: 2 Density: Solid Lung location: Left lobe: Pleural-based Location in series: Series Number: 2 Image: 32 Size - D1 x D2 mm: 2 x 2 mm: 2 mm average diameter Margin: Smooth Shape: Round Calcification: Yes Fat: No Temporal comparison: No Nodule #: 3 Density: Solid Lung location: Right upper lobe: 0 point cm from pleura Location in series: Series Number: 2 Image: 39 Size - D1 x D2 mm: 6 x 4 mm: 5 mm average diameter Margin: Smooth Shape: Oval Calcification: Yes Fat: No Temporal comparison: No Nodule #: 4 Density: Solid Lung location: Left upper lobe: 2.3 cm from pleura Location in series: Series Number: 2 Image: 45 Size - D1 x D2 mm: 5 x 2 mm: 4 mm average diameter Margin: Smooth Shape: Oval Calcification: Yes Fat: No Temporal comparison: No Nodule #: 5 Density: Solid Lung location: Right upper lobe: 0.5 cm from pleura Location in series: Series Number: 2 Image: 50 Size - D1 x D2 mm: 7 x 4 mm: 6 mm average diameter Margin: Smooth Shape: Oval Calcification: Yes Fat: No Temporal comparison: No Nodule #: 6 Density: Solid Lung location: Left upper lobe: 0.4 cm from pleura Location in series: Series Number: 2 Image: 61 Size - D1 x D2 mm: 5 x 4 mm: 5 mm average diameter Margin: Smooth Shape: Round Calcification: Yes Fat: No Temporal comparison: Stable Nodule #: 7 Density: Solid Lung location: Right upper lobe: 3 cm from pleura Location in series: Series Number: 2 Image: 84 Size - D1 x D2 mm: 6 x 4 mm: 5 mm average diameter Margin: Smooth Shape: Oval Calcification: Yes Fat: No Temporal comparison: Stable Nodule #: 8 Density: Solid Lung location: Left upper lobe: 0 point cm from pleura Location in series: Series Number: 2 Image: 84 Size - D1 x D2 mm: 5 x 4 mm: 5 mm average diameter Margin: Smooth Shape: Oval Calcification: Yes Fat: No Temporal comparison: No Nodule #: 9 Density: Solid Lung location: Right middle lobe: 1.2 cm from pleura Location in series: Series Number: 2 Image: 109 Size - D1 x D2 mm: 5 x 4 mm: 5 mm average diameter Margin: Smooth Shape: Round Calcification: Yes Fat: No Temporal comparison: Stable Nodule #: 10 Density: Solid Lung location: Right middle lobe: 1.8 cm from pleura Location in series: Series Number: 2 Image: 103 Size - D1 x D2 mm: 4 x 3 mm: 4 mm average diameter Margin: Smooth Shape: Round Calcification: Yes Fat: No Temporal comparison: No Nodule #: 11 Density: Solid Lung location: Left lower lobe: Pleural-based Location in series: Series Number: 2 Image: 140 Size - D1 x D2 mm: 7 x 3 mm: 6 average diameter Margin: Smooth Shape: Oval Calcification: Yes Fat: No Temporal comparison: No Total lung nodules (excluding granulomas): 0 Emphysema: There is mild emphysematous changes of lungs. Endobronchial lesion: None Aorta: There is atherosclerotic changes of the thoracic aorta. Coronary arteries: There are coronary artery calcifications. Heart: The heart is normal in size. There is pericardial thickening. Pulmonary artery: Normal Mediastinal nodes: None Other chest and abdominal findings: There is mild degenerative changes of the thoracic spine. CT/Low Dose CT Lung Screening IMPRESSION: Lung-RADS category 1 - Continue annual screening with LDCT in 12 months. IMPORTANT NOTES FOR USE: ACR Lung-RADS Version 1.0 Assessment Categories Release Date: November 06, 2013 Category: Coded 0-4 bases on nodule(s) with highest degree of suspicion. Negative screen is defined as categories 1 and 2; a positive screen is defined as categories 3 and 4. Category 3 and 4A nodules that are unchanged on interval CT should be coded as category 2, and individuals returned to screening in 12 months. Category 4X: Category 3 or 4 nodules with additional imaging findings that increase the suspicion of lung cancer, such as spiculation, GGN that doubles in size in 1 year, enlarged lymph notes, etc. Category Modifiers: S (significant finding unrelated to lung cancer) and C (prior history of treated lung cancer) may be added to the 0-4 Lung-RADS Electronically Signed: Ab Hylton DO at 21:43 EDT Tel [phone], Service support , CC: Bakari Ware MD Swing Grinder: Signed CBC W/DIFF, AUTOMATED Collected: 12/22/2017 Status: F Source: [place] 4:24 PM [facility] REPOSITORY TYPE CODE TESTS RESULT OUT OF RANGE REFERENCE UNITS LAB L100.1000 4.4-11.0 K/mm3 Normal WBC 6.2 LAB L100.1200 4.2-5.4 M/mm3 Normal RBC 4.31 LAB L100.1300 12.0-15.0 g/dl Normal HGB 13.1 LAB L100.1400 37-47 % Normal HCT 40.1 LAB L100.1500 81-99 fL Normal MCV 93.0 LAB L100.1600 27.0-32.0 pg Normal MCH 30.4 LAB L100.1700 32-36 g/gl Normal MCHC 32.7 LAB L100.1810 11.6-14.6 % Normal RDW CV 13.4 LAB L100.1820 35.1-43.9 fl High RDW SD 46.0 LAB L100.1900 150-450 K/mm3 Normal PLT 213 LAB L100.2000 6.2-12.0 fl Normal MPV 10.6 LAB L100.2100 47-70 % Normal NEUT% 59.9 LAB L100.2200 19-41 % Normal LY% 31.1 LAB L100.2300 0-10 % Normal MONO% 5.9 LAB L100.2400 0-5 % Normal EO% 2.6 LAB L100.2500 0-1 % Normal BASO% 0.3 LAB L100.2550 0.0-0.9 % Normal IM GRAN % 0.200 Result Comment: IG% - Immature Granulocytes (promyelocytes, myelocytes and metamyelocytes) > 1% indicates that a LEFT SHIFT is Present. LAB L100.2620 2.0-7.7 X10 3/uL Normal Absolute Neut 3.7 LAB L100.2720 0.83-4.51 X10 3/ul Normal Absolute Lymph 1.91 Performed By: #### L100.0100 #### [facility] [address] [place], [place], [address] VITAMIN D,25 HYDROXY Collected: 12/22/2017 Status: F Source: [place] 4:24 PM [facility] REPOSITORY TYPE CODE TESTS RESULT OUT OF REFERENCE UNITS RANGE LAB L506.1000 29.95-100.01 ng/mL Low Vitamin D 21.1 25-OH Result Comment: Vitamin D 25(OH) Status Range Deficiency <20 ng/mL (50nmol/L) Insuffciency 20 - 30 ng/mL (50 - 75 nmol/L) Sufficiency 30 - 100 ng/mL (75 - 250 nmol/L) Toxicity >100 ng/mL (>250 nmol/L) Performed By: #### L506.1000 #### [facility] [address], [place], [address] COMPREHENSIVE METABOLIC Collected: 12/22/2017 Status: F Source: [facility] 4:24 PM [facility] REPOSITORY TYPE CODE TESTS RESULT OUT OF RANGE REFERENCE UNITS LAB L501.0100 74-106 mg/dL Normal GLU 78 Result Comment: Please note revised GLUCOSE reference range effective 2017. LAB L501.1000 7-18 mg/dL High BUN 23 LAB L501.1100 0.55-1.02 mg/dL Normal CREAT,SERUM 0.66 Result Comment: The validity of the calculated GFR AND GFRAA in patients over 70 years has not been determined. Clinical correlation is essential. LAB L501.1110 >60 mL/min Normal EST GFR 94 Result Comment: Non- GFR Calc LAB L501.1115 >60 mL/min Normal EST GFR - AA 114 Result Comment: GFR Calc LAB L501.1300 10-20 RATIO High BUN/CRE 35.1 LAB L501.1500 6.4-8.2 g/dL T Normal PROT 7.1 LAB L501.1800 3.2-5.0 g/dL Normal ALB 3.2 LAB L501.1950 2.2-4.2 g/dL Normal GLOB 3.9 LAB L501.2000 0.9-2.4 RATIO Low A/G 0.8 LAB L501.2200 8.5-10.1 mg/dL CA Normal 8.5 LAB L501.4100 15-37 U/L Normal AST 19 LAB L501.4305 45-117 U/L Normal ALK P 46 LAB L501.4405 13-56 U/L Normal ALT 27 LAB L501.4600 0.20-1.00 mg/dL T Normal BILI 0.30 LAB L501.5300 136-145 mmol/L NA Normal 145 LAB L501.5600 3.5-5.1 mmol/L K Normal 3.8 LAB L501.5900 98-107 mmol/L High CL 108 LAB L501.6100 21.0-32.0 mmol/L Normal CO2 31.0 LAB L501.6200 5-15 Normal GAP 6 Performed By: #### L500.4050, L501.9520 #### [facility] [address], [place], [address] THYROID STIM HORMONE Collected: 12/22/2017 Status: F Source: [facility] (T[facility]) 4:24 PM [facility] REPOSITORY TYPE CODE TESTS RESULT OUT OF RANGE REFERENCE UNITS LAB L501.9520 0.358-3.74 uIU/mL Normal TSH 0.59 Performed By: #### L500.4050, L501.9520 #### [facility] [address], [place], [address] CBC W/DIFF, AUTOMATED Collected: 09/23/2017 Status: F Source: [facility] 2:43 PM [facility] REPOSITORY TYPE CODE TESTS RESULT OUT OF RANGE REFERENCE UNITS LAB L100.1000 4.4-11.0 K/mm3 Normal WBC 6.4 LAB L100.1200 4.2-5.4 M/mm3 Normal RBC 4.26 LAB L100.1300 12.0-15.0 g/dl Normal HGB 12.7 LAB L100.1400 37-47 % Normal HCT 40.0 LAB L100.1500 81-99 fL Normal MCV 93.9 LAB L100.1600 27.0-32.0 pg Normal MCH 29.8 LAB L100.1700 32-36 g/gl Low MCHC 31.8 LAB L100.1810 11.6-14.6 % Normal RDW CV 13.4 LAB L100.1820 35.1-43.9 fl High RDW SD 45.9 LAB L100.1900 150-450 K/mm3 Normal PLT 228 LAB L100.2000 6.2-12.0 fl Normal MPV 11.1 LAB L100.2100 47-70 % Normal NEUT% 57.8 LAB L100.2200 19-41 % Normal LY% 33.0 LAB L100.2300 0-10 % Normal MONO% 6.6 LAB L100.2400 0-5 % Normal EO% 2.3 LAB L100.2500 0-1 % Normal BASO% 0.3 LAB L100.2550 0.0-0.9 % Normal IM GRAN % 0.000 Result Comment: IG% - Immature Granulocytes (promyelocytes, myelocytes and metamyelocytes) > 1% indicates that a LEFT SHIFT is Present. LAB L100.2620 2.0-7.7 X10 3/uL Normal Absolute Neut 3.7 LAB L100.2720 0.83-4.51 X10 3/ul Normal Absolute Lymph 2.11 Performed By: #### L100.0100 #### [facility] [address] [place], [place], [address] COMPREHENSIVE METABOLIC Collected: 09/23/2017 Status: F Source: [facility] 2:43 PM [facility] REPOSITORY TYPE CODE TESTS RESULT OUT OF RANGE REFERENCE UNITS LAB L501.0100 74-106 mg/dL Normal GLU 97 Result Comment: Please note revised GLUCOSE reference range effective 2017. LAB L501.1000 7-18 mg/dL High BUN 25 LAB L501.1100 0.55-1.02 mg/dL Normal CREAT,SERUM 0.78 Result Comment: The validity of the calculated GFR AND GFRAA in patients over 70 years has not been determined. Clinical correlation is essential. LAB L501.1110 >60 mL/min Normal EST GFR 78 Result Comment: Non- GFR Calc LAB L501.1115 >60 mL/min Normal EST GFR - AA 94 Result Comment: GFR Calc LAB L501.1300 10-20 RATIO High BUN/CRE 32.2 LAB L501.1500 6.4-8.2 g/dL T Normal PROT 7.2 LAB L501.1800 3.2-5.0 g/dL Normal ALB 3.3 LAB L501.1950 2.2-4.2 g/dL Normal GLOB 3.9 LAB L501.2000 0.9-2.4 RATIO Low A/G 0.8 LAB L501.2200 8.5-10.1 mg/dL CA Normal 9.2 LAB L501.4100 15-37 U/L Normal AST 20 LAB L501.4305 45-117 U/L Normal ALK P 53 LAB L501.4405 13-56 U/L Normal ALT 29 Result Comment: Please note revised ALT reference range effective 2017. LAB L501.4600 0.20-1.00 mg/dL Normal T BILI 0.20 LAB L501.5300 136-145 mmol/L Normal NA 141 LAB L501.5600 3.5-5.1 mmol/L Normal K 3.9 LAB L501.5900 98-107 mmol/L Normal CL 103 LAB L501.6100 21.0-32.0 mmol/L Normal CO2 31.0 LAB L501.6200 5-15 Normal GAP 7 Performed By: #### L500.4050, L501.9520 #### [facility] [address] [place], [place], [id number] THYROID STIM HORMONE Collected: 09/23/2017 Status: F Source: [facility] (TSH) 2:43 PM [facility] REPOSITORY TYPE CODE TESTS RESULT OUT OF RANGE REFERENCE UNITS LAB L501.9520 0.358-3.74 uIU/mL Normal TSH 1.20 Performed By: #### L500.4050, L501.9520 #### [facility] [address] [place], [place], [address] VITAMIN D,25 HYDROXY Collected: 09/23/2017 Status: F Source: [place] 2:43 PM [facility] REPOSITORY TYPE CODE TESTS RESULT OUT OF REFERENCE UNITS RANGE LAB L506.1000 29.95-100.01 ng/mL Low Vitamin D 25.7 25-OH Result Comment: Vitamin D 25(OH) Status Range Deficiency <20 ng/mL (50nmol/L) Insuffciency 20 - 30 ng/mL (50 - 75 nmol/L) Sufficiency 30 - 100 ng/mL (75 - 250 nmol/L) Toxicity >100 ng/mL (>250 nmol/L) Performed By: #### L506.1000 #### [facility] [address] [place], [place], [id number] BASIC METABOLIC Collected: 09/16/2017 Status: F Source: [place] PROFILE (BMP) 3:16 PM [facility] REPOSITORY TYPE CODE TESTS RESULT OUT OF RANGE REFERENCE UNITS LAB L501.0100 74-106 mg/dL Normal GLU 86 Result Comment: Please note revised GLUCOSE reference range effective 2017. LAB L501.1000 7-18 mg/dL High BUN 19 LAB L501.1100 0.55-1.02 mg/dL Normal CREAT,SERUM 0.69 Result Comment: The validity of the calculated GFR AND GFRAA in patients over 70 years has not been determined. Clinical correlation is essential. LAB L501.1110 >60 mL/min Normal EST GFR 89 Result Comment: Non- GFR Calc LAB L501.1115 >60 mL/min Normal EST GFR - AA 108 Result Comment: GFR Calc LAB L501.1300 10-20 RATIO High BUN/CRE 27.7 LAB L501.2200 8.5-10.1 mg/dL CA Normal 9.2 LAB L501.5300 136-145 mmol/L NA Normal 142 LAB L501.5600 3.5-5.1 mmol/L K Normal 3.6 LAB L501.5900 98-107 mmol/L CL Normal 105 LAB L501.6100 21.0-32.0 mmol/L Normal CO2 30.0 LAB L501.6200 5-15 Normal GAP 7 Performed By: #### L500.2500 #### [facility] [address] [place], [address] Observed: 09/08/2017 Status: F Source: [facility] CULTURE, URINE 11:55 AM [facility] REPOSITORY Urine Culture ORGANISM 1: Presumptive E. coli Keyes Count >100,000 Presumptive E. coli: REACTION Amoxacillin/Clavulanic Acid $ <=2 S Ampicillin $ 4 S Ampicillin/Sulbactam $ <=2 S Cefazolin $ <=4 S Cefepime $ <=1 S Ceftriaxone $ <=1 S Ciprofloxacin $ >=4 R ESBL - Ertapenim $$$ <=0.5 S Gentamicin $ <=1 S Imipenem *NF <=0.25 S Levofloxacin $ >=8 R Nitrofurantoin $ <=16 S Piperacillin/Tazobactam $$ <=4 S Tobramycin $ <=1 S Trimethoprim/Sulfametho $ <=20 S (NF) indicates non-formulary drug at [facility]. Approval by Infectious Disease Specialist required before non-formulary drugs may be ordered and/or dispensed. Performed By: #### M100.0650 #### [facility] [address] [place] [address]. [place], [place], [address] MODIFIED BARIUM Observed: 09/03/2017 Status: F Source: [facility] SWALLOW STUDY 2:47 PM [facility] REPOSITORY [facility] Speech Pathology [address] [place] [address] Modified Barium Swallow Study MR#: [id number] Acct: [id number] Name: YADI WESTFALL Rep #: [id number] : 1945 71 From: Rashi Brasher M.A. CFY-MARKETING COMMUNICATIONS SPECIALIST PRIMARY / SECONDARY DIAGNOSIS: dysphagia (R13.10) REFERRING PHYSICIAN: Dr. Junaid Ware MD CURRENT DIET: regular textures, thin liquids DENTITION: WFL MENTAL STATUS: appropriate for participation RESPIRATORY STATUS: O2 via room air PREVIOUS MODIFIED BARIUM SWALLOW STUDY: REASON FOR REFERRAL: Patient is a 71 year old female with a past medical history significant for right subcortical / periventricular infarct referred for a modified barium swallow (MBS) study to objectively assess the Patients oropharyngeal swallow function under fluoroscopy secondary to reported coughing incidences during intake (Patient reports 1 occurrence, family reports 3 additional occurrences), with no association to diet texture, reports insidious onset without consistent presentation. 11/16/2016 MRI revealed severe senescent changes with no evidence of acute intracranial bleed, mass or ischemia as described above; lack of flow related enhancement within the right vertebral artery V4 segment with corresponding MRI neck showing termination within the posterior circulation. 11/24/2017 MRI revealed new acute infarct in the upper right parietal white matter near the acute / subacute infarct involving the right de la garza radiata; stable moderate chronic small vessel ischemic changes in the bilateral cerebral white matter and brainstem. MEDICAL HISTORY: Cerebrovascular accident, diabetic neuropathy, depression, hypertension, obesity, physical debility, tobacco abuse, type 2 diabetes mellitus, adenoidectomy, appendectomy, lumbar herniated disk surgery STUDY FINDINGS: Patient participated in a Modified Barium Swallow (MBS) study on 09/03/2017. Dr. Lim was the radiologist present for this evaluation. This study was recorded in the lateral view and images were sent to PACs for storage. The following consistencies were presented to this patient for analysis of oropharyngeal swallow function: thin liquids, pudding, and a regular textured, Hayley Doone cookie. Results of the MBS are as follows: PENETRATION / ASPIRATION SCALE (SAMANIEGO): 1 = does not enter airway 2 = enters airway/above vocal folds/ejected 3 = enters airway/above vocal folds/not ejected 4 = enters airway/contacts vocal folds/ejected 5 = enters airway/contacts vocal folds/not ejected 6 = enters airway/below vocal folds/ejected 7 = enters airway/below vocal folds/not ejected despite effort 8 = enters airway/below vocal folds/no effort VIDEOFLOROSCOPIC SCALE SCORE (SAMANIEGO): Grade I = aspiration of material that has penetrated into the laryngeal vestibule, intact cough reflex Grade II = aspiration < 10 % of the bolus, intact cough reflex Grade III = aspiration of < 10 % of the bolus, reduced cough reflex or aspiration of > 10 % of the bolus, intact cough reflex Grade IV = aspiration of > 10 % of the bolus, reduced cough reflex PENETRATION / ASPIRATION SCALE (SCORE) WITH VIDEOFLOROSCOPIC SCALE SCORE: Thin liquid - 5 mL tsp.: 1 Thin liquids via cup (single sip): 1 Thin liquids via cup (single sip): 1 Thin liquids via cup (single sip): 1 Thin liquids via cup (sequential swallows): 1 Thin liquids via cup (chin tuck): 7 - Grade II Pudding via spoon: 1 Regular textured cookie: 1 Thin liquids via straw (sequential swallows): 1 Thin liquids via straw (single sip): 1 IMPRESSION: DIAGNOSIS: mild to moderate oropharyngeal dysphagia (R13.12) ORAL PHASE CHARACTERIZED BY: LABIAL SEAL: intermittent escape beyond interlabial space or lateral juncture; no extension beyond isaiah border TONGUE CONTROL DURING BOLUS MANIPULATION: intermittent posterior escape of greater than half of bolus BOLUS PREPARATION / MASTICATION: timely and efficient chewing and mashing BOLUS TRANSPORT / LINGUAL MOTION: brisk tongue motion ORAL RESIDUE: intermittent trace residue lining oral structures PHARYNGEAL PHASE CHARACTERIZED BY: INITIATION OF PHARYNGEAL SWALLOW: bolus head in pyriforms at first hyoid excursion during trials of thin liquid via straw; bolus head in valleculae at first hyoid excursion across remaining trials SOFT PALATE ELEVATION: no bolus between soft palate and pharyngeal wall LARYNGEAL ELEVATION: partial superior movement of thyroid cartilage/partial approximation of arytenoids cartilage to epiglottic petiole ANTERIOR HYOID EXCURSION: complete anterior movement EPIGLOTTIC MOVEMENT: complete epiglottic inversion LARYNGEAL VESTIBULE CLOSURE AT HEIGHT OF SWALLOW: complete laryngeal vestibule closure with no air/contrast in laryngeal vestibule PHARYNGEAL STRIPPING WAVE: pharyngeal stripping wave present / complete PHARYNGOESOPHAGEAL SEGMENT OPENING: complete distension and complete duration with no obstruction of flow TONGUE BASE RETRACTION: no contrast between tongue base and posterior pharyngeal wall PHARYNGEAL RESIDUE: complete pharyngeal clearance ESOPHAGEAL PHASE CHARACTERIZED BY: ESOPHAGEAL BOLUS CLEARANCE IN THE UPRIGHT POSITION: could not view EFFECTS OF TREATMENT STRATEGIES ATTEMPTED: Chin tuck posture = ineffective Reduced bolus size = effective Removal of straw = effective DIET TEXTURE RECOMMENDATIONS: Will recommend a regular-soft textured, thin liquid diet. COMPENSATORY STRATEGIES RECOMMENDED: Reduced bolus volume, left sided bolus placement (independently completes prior to assessment), avoid straws, seated upright at 90 degrees during PO intake INTERPRETATION OF RESULTS: Patient presents with mild to moderate oropharyngeal dysphagia (R13.12) likely secondary to a combination of a previous right subcortical / periventricular infarct and secondary presbyphagia. Oral phase primarily marked by suboptimal lingual control due to mild residual with noted intermittent posterior bolus loss of thin liquids; and mild insufficient labial control resulting in intermittent anterior bolus loss of thin liquids. Pharyngeal phase primarily marked by delayed pharyngeal swallow onset timing resulting in suboptimal bolus location upon swallow onset contributing to pre-prandial / prandial penetration and aspiration on one occasion. Patient noted to overtly aspirate during trials of thin liquids, suggesting clinical assessment at bedside relying on identification of classic overt signs and symptoms of aspiration to be considered a reliable indicator of tolerance. RECOMMENDATIONS: Patient and Patients family able to comprehend and express recommended intake precautions detailed above with sufficient detail to suggest high likelihood of compliance. Provided brief overview of signs and symptoms of aspiration, with recommendations for the Patient to further discuss symptoms with PCP. No further skilled speech-language services warranted at this time targeting dysphagia. ADDITIONAL COMMENTS/RECOMMENDATIONS: Results and recommendations were discussed with the Patient immediately following MBS completion, with the Patient verbalizing understanding and agreement with all recommendations and education provided. IMAGE COUNT: 1363 G-CODES: SWALLOWING G8996 Current Status: CI SWALLOWING G8997 Goal Status: CI SWALLOWING G8998 Discharge Status: CI 09/03/17 1447 <Electronically signed by Rashi Brasher M.A., CFY-MARKETING COMMUNICATIONS SPECIALIST> Date Rashi Brasher M.A., CFY-MARKETING COMMUNICATIONS SPECIALIST Co-Signature Required for all Medicare patients Date/Time Co-Signature CC: SWALLOWING FUNCTION Observed: 09/03/2017 Status: F Source: [facility] W/VIDEO 1:18 PM [facility] REPOSITORY [facility] Imaging Services [address] [place] [address] Swallowing Function w/Video MR#: [id number] Acct: [id number] Name: YADI WESTFALL Rep #: [id number] : 1945 F 71 From: Tyson Lim MD PCP: Bakari Ware MD, Chi Status: REG CLI Study: Swallowing Function w/Video Date of Exam: 09/03/17 Exam# [id number] Ordering Dr: Bakari Ware MD STUDY: SWALLOWING STUDY REASON FOR EXAM: Female, 71 years old. Dysphagia. TECHNIQUE: The examination was performed with Speech Pathology in attendance. Under fluoroscopic observation, the patient ingested thin barium, thick barium, barium pudding, and barium coated cracker. FLUOROSCOPY TIME: 1:27 minutes/seconds. 1363 fluoroscopic images were obtained. RADIOLOGIST INVOLVEMENT: Radiologist was present and providing direct supervision. COMPARISON: None. FINDINGS: The following was observed during swallowing of the various mixtures of barium: Thin Barium: There was no evidence of aspiration or laryngeal penetration. There is evidence of aspiration with thin liquids with the chin tuck maneuver. Barium Pudding: There was no evidence of aspiration or laryngeal penetration. Barium Coated Cracker: There was no evidence of aspiration or laryngeal penetration. Prominent anterior spondylosis at the C5-C6 level. RAD/Swallowing Function w/Video IMPRESSION: Aspiration with ingestion of thin liquids with the chin tuck maneuver. The swallow study findings were discussed with the patient by the speech pathologist at the conclusion of the examination. Please see speech pathology report for more information and recommendations. Electronically Signed: Tyson Lim MD at 15:46 EST Tel [phone], Service support , CC: Bakari Ware MD Swing Grinder: Signed BASIC METABOLIC Collected: 09/01/2017 Status: F Source: [facility] PROFILE (BMP) 2:02 PM [facility] REPOSITORY TYPE CODE TESTS RESULT OUT OF RANGE REFERENCE UNITS LAB L501.0100 74-106 mg/dL Normal GLU 98 Result Comment: Please note revised GLUCOSE reference range effective 2017. LAB L501.1000 7-18 mg/dL High BUN 23 LAB L501.1100 0.55-1.02 mg/dL Normal CREAT,SERUM 0.84 Result Comment: The validity of the calculated GFR AND GFRAA in patients over 70 years has not been determined. Clinical correlation is essential. LAB L501.1110 >60 mL/min Normal EST GFR 71 Result Comment: Non- GFR Calc LAB L501.1115 >60 mL/min Normal EST GFR - AA 86 Result Comment: GFR Calc LAB L501.1300 10-20 RATIO High BUN/CRE 27.4 LAB L501.2200 8.5-10.1 mg/dL CA Normal 8.9 LAB L501.5300 136-145 mmol/L NA Normal 141 LAB L501.5600 3.5-5.1 mmol/L K Normal 3.5 LAB L501.5900 98-107 mmol/L CL Normal 103 LAB L501.6100 21.0-32.0 mmol/L Normal CO2 28.0 LAB L501.6200 5-15 Normal GAP 10 Performed By: #### L500.2500 #### [facility] [address] [facility] [place], [address] VENOUS DUPLEX LOWER Observed: 08/25/2017 Status: F Source: [facility] EXTREMITY 6:55 PM [facility] REPOSITORY [facility] Cardiovascular Services [address] [place] [address] Venous Duplex US - Dean Extrem 08/25/17 1454 MR#: [id number] Acct: [id number] Name: YADI WESTFALL Rep #: [id number] : 1945 71 From: Luiz Simon MD Attending Dr: Chaz BERG,Bakari Correa Status: REG CLI Ordering Dr: Bakari Ware MD Date: 08/25/17 Location: CVS Sex: F C Admitted: Reason For Study: LEG SWELLING RIGHT LEFT GSV is normal. GSV is normal. CFV is compressible, spontaneous, phasic, CFV is compressible, spontaneous, phasic, competent and demonstrates normal competent, and demonstrates normal augmentation. augmentation. FV is compressible, spontaneous, phasic, FV is compressible, spontaneous, phasic, competent and demonstrates normal competent and demonstrates normal augmentation. augmentation. POP V is compressible, spontaneous, phasic, POP V is compressible, spontaneous, phasic, competent and demonstrates normal competent and demonstrates normal augmentation. augmentation. T/P Trunk is compressible. T/P Trunk is compressible. PTV is compressible. PTV is compressible. RT PerV is compressible. LT PerV is compressible. Procedure Exam performed in department. Calf veins poorly visualized due to edema. A preliminary report was called and/or faxed to Dr. Ware. Interpretation Summary Deep veins of the lower extremities are bilaterally patent and compressible segmentally. There is no evidence of deep vein thrombosis on either side. Valvular competence appears intact within the proximal deep venous systems bilaterally. The greater saphenous veins appear bilaterally patent and compressible segmentally. Ordering Physician: Bakari Ware Referring Physician: Bakari Ware Chi Performed By: Deana Mg RVT 08/25/171853 Date Luiz Simon MD CC: Bakari Ware MD Date Dictated: 08/25/17 1454 Date Transcribed: 08/25/171853 Swing Grinder: Signed NCS AND/OR EMG Observed: 08/18/2017 Status: F Source: MOORE PATIENT 11:23 AM [facility] REPOSITORY [facility] Pulmonary Services/Neurology [address] [place] [address] MR#: [id number] Acct: [id number] Name: MARIJASHAMIKAYADI Rep #: [id number] : 1945 71 From: Musa Llamas MD Referring Dr: Becky Burrows NP Status: REG CLI Ordering Dr: Date: Location: [facility] Sex: F C NCS and/or EMG Patient Report Ordering Doctor: Becky Burrows DATE OF SERVICE: 08/18/17 This is a left lower extremity nerve conduction study performed on this 71-year-old female with a history of stroke and spasms in her left lower extremity. Patient is diabetic but her last hemoglobin A1c was less than 5. She is seeing pain management for her pain. Spasms in her left lower extremity worse when she is supine. She has severe pitting edema today, EMG testing was therefore deferred. Left lower extremity sensory motor nerve conduction studies performed. The sural sensory response is not obtainable, conduction velocities are slowed from the motor nerves. Common peroneal distal latencies are prolonged with reduced amplitudes from the common peroneal nerve as well as the tibial motor nerve. Common peroneal and tibial F waves are prolonged and H reflex responses from the tibial nerves are bilaterally reduced. Impression this is an abnormal nerve conduction study of the left lower extremity consistent with polyneuropathy. Evaluation for other causes could include B12 testing, serum protein electrophoresis, hepatic panel, and inflammatory markers. The spasms appear to be due to upper motor neuron dysfunction (stroke). Severe edema today prohibits needle electromyography. This was discussed with the patient and family who agree. 08/18/17 1123 <Electronically signed by Musa Llamas MD> Date Musa Llamas MD CC: NGA Burrows; Musa Llamas MD; Bakari Ware MD Date Dictated: 08/18/17 1119 Date Transcribed: 08/18/171118 Swing Grinder: NF Signed URINE DRUG SCREEN Collected: 07/28/2017 Status: F Source: [place] ([place]) 2:50 PM [facility] REPOSITORY Order Comment: List of Drugs Taken or Suspected? UNK TYPE CODE TESTS RESULT OUT OF RANGE REFERENCE UNITS LAB L505.0075 TO BE Normal CONFIRMED Result Comment: CONFIRMATORY TESTING FOR ALL POSITIVE URINE DRUG SCREEN RESULTS WILL ONLY BE SENT OUT UPON PHYSICIAN ORDER. [place] Urine Drug Screen methods provide only preliminary analytical test results. A more specific alternate chemical method must be used in order to obtain a confirmed analytical result. Gas chromatography/mass spectrometery (GC/MS) is the preferred confirmatory method. Clinical consideration and professional judgement should be applied to any drug of abuse test result, particularly when preliminary positive results are used. URINE TCA TESTING MUST BE ORDERED SEPARATELY. USE TEST MNEMONIC: [facility] LAB L505.5005 VISTA UDS PH 5 Normal LAB L505.5015 <1000 ng/mL AMPHETAMINES Normal NEGATIVE LAB L505.5025 < 200 ng/mL BARBITIURATES Normal NEGATIVE LAB L505.5035 < 200 ng/mL BENZODIAZIPINE Normal NEGATIVE LAB L505.5045 < 300 ng/mL COCAINE Normal NEGATIVE LAB L505.5055 < 500 High ng/mL ECSTACY POSITIVE LAB L505.5065 < 300 ng/mL METHADONE Normal NEGATIVE LAB L505.5075 < 300 High ng/mL OPIATES POSITIVE LAB L505.5085 < 25 ng/mL PCP Normal NEGATIVE LAB L505.5095 < 50 ng/mL THC Normal NEGATIVE Performed By: #### L505.5000 #### [facility] [address] [place], [address] MISCELLANEOUS LAB Collected: 07/28/2017 Status: F Source: [place] PROCEDURE 2:50 PM [facility] REPOSITORY Order Comment: Test(s) Ordered: [id number] RUN LOWEST TEST TYPE CODE TESTS RESULT OUT OF RANGE REFERENCE UNITS LAB L801.1541 Normal [facility] LAB TEST Result Comment: [id number] 6+OXYCODONE-BUND (ng/mL) DRUG RESULT SCREEN CUTOFF ____ Amphetamines,Urine Negative ng/mL 1000 Amphetamine test includes Amphetamine and Methamphetamine. Barbiturates Negative ng/mL 200 Benzodiazepines Negative ng/mL 200 Cannabinoid Negative ng/mL 20 Cocaine (Metab) Negative ng/mL 300 Opiates Negative ng/mL 300 Opiates test includes Codeine, Morphine, Hydromorphone, Hydrocodone. Oxycodone/Oxymorphone,Urine Negative ng/mL 300 Test includes Oxydodone and Oxymorphone. TESTING PERFORMED AT [facility]. ORIGINAL REPORT ON FILE IN LAB CONTAINS ADDITIONAL TEST SITE INFORMATION. Performed By: #### L801.1541 #### [facility] [address] [place], [address] LUMBAR SPINE 2 OR 3 Observed: 07/28/2017 Status: F Source: MOORE VIEWS 2:14 PM [facility] REPOSITORY [facility] Imaging Services [address] [place] [address] Lumbar Spine 2 or 3 Views MR#: [id number] Acct: [id number] Name: YADI WESTFALL Rep #: [id number] : 1945 F 71 From: Yovana Healy MD PCP: Sophie Bradford MD Status: REG CLI Study: Lumbar Spine 2 or 3 Views Date of Exam: 07/28/17 Exam# [id number] Ordering Dr: Sarah Ladd MD STUDY: X-RAY - LUMBAR SPINE REASON FOR EXAM: Female, 71 years old. LOW BACK PAIN TECHNIQUE: 3 view(s) of the lumbar spine were obtained. COMPARISON: None FINDINGS: Normal lumbar lordosis. There is a dextroscoliosis of the lumbar spine. There is 5 mm spondylolisthesis at L4-5 most likely due to degenerative changes in the facet joints. There is multilevel endplate spondylosis of the lumbar vertebrae. There is multi-level degenerative disc disease with multi-level disc space narrowing. The soft tissue structures are unremarkable. RAD/Lumbar Spine 2 or 3 Views IMPRESSION: Degenerative changes of the spine, as detailed above. Electronically Signed: Yovana Healy MD at 6:04 EST Tel , Service support , CC: Sarah Ladd MD; Sophie Bradford MD Swing Grinder: Signed URINALYSIS, COMPLETE Collected: 07/23/2017 Status: F Source: [place] 11:00 AM [facility] REPOSITORY Order Comment: How was Urine Obtained? CLEAN CATCH TYPE CODE TESTS RESULT OUT OF RANGE REFERENCE UNITS LAB L400.3000 Yellow COLOR Normal Yellow LAB L400.3050 Clear Normal CLARITY Sl. Cloudy LAB L400.3200 Normal mg/dl Normal GLUCOSE, UR Normal LAB L400.3300 Negative mg/dL Normal BILIRUBIN URINE Negative LAB L400.3400 Negative mg/dl Normal KETONE UR Negative LAB L400.3465 1.002-1.030 Normal SP.GR. DIPSTX 1.015 LAB L400.3550 5.0 - 8.0 pH UR Normal 7.0 LAB L400.3600 Negative mg/dl PROT Normal DIPSTX Negative LAB L400.3700 Normal mg/dl Normal UROBILI Normal LAB L400.3750 Negative High NITRITE UR Positive LAB L400.3780 Negative /ul Normal OCCULT BLOOD-UR Negative LAB L400.3800 Negative /ul High LEUK ESTERASE 100 LAB L400.4050 0-5 /hpf WBC Normal 0-5 SEEN LAB L400.4100 0-5 /hpf 0 Normal RBC-UA SEEN LAB L400.4150 5-10 /hpf SQUAM 0 Normal EPI SEEN LAB L400.4300 None Seen /hpf 3+ Normal BACTERIA LAB L400.4350 <or=2+ /hpf 0 Normal MUCUS, URINE SEEN Performed By: #### L400.0001 #### [facility] [place] [address], [address] Observed: 07/23/2017 Status: F Source: [place] CULTURE, URINE 11:00 AM [facility] REPOSITORY Urine Culture ORGANISM 1: Presumptive E. coli Keyes Count >100,000 Presumptive E. coli: REACTION Amoxacillin/Clavulanic Acid $ <=2 S Ampicillin $ <=2 S Ampicillin/Sulbactam $ <=2 S Cefazolin $ <=4 S Cefepime $ <=1 S Ceftriaxone $ <=1 S Ciprofloxacin $ <=0.25 S ESBL - Ertapenim $$$ <=0.5 S Gentamicin $ <=1 S Imipenem *NF <=0.25 S Levofloxacin $ <=0.12 S Nitrofurantoin $ <=16 S Piperacillin/Tazobactam $$ <=4 S Tobramycin $ <=1 S Trimethoprim/Sulfametho $ <=20 S (NF) indicates non-formulary drug at [facility]. Approval by Infectious Disease Specialist required before non-formulary drugs may be ordered and/or dispensed. Performed By: #### M100.0650 #### [facility] [address] [place], [address] OBSOLETE Observed: 07/21/2017 Status: COMPLETED Source: [place] 12:00 AM [facility] REPOSITORY Refill (INTMWS) YADI WESTFALL ([id number]) 1945 F Date Time Provider Department 07/21/17 SOPHIE BRADFORD INTMWS During your visit today, we recorded the following information about you: Allergies As of Date: 07/21/2017 Noted Allergy Reaction PHENERGAN (PROMETHAZINE) 09/01/2007 5 - Intolerance PROPRANOLOL 03/17/2012 14 - Other: See Comments Comments: leg swelling and maybe dizziness (?) Date Reviewed: 04/02/2017 Reviewed by: Janis Mota Ma - Fully Assessed Reason for Visit: Refill Request [94] Prescriptions as of 07/21/2017 Sig: HYDROCODONE 5 MG-ACETAMINOPHE* Take 1 tablet by mouth every * COMPOUNDED PRESCRIPTION [facility] WI* COMPOUNDED PRESCRIPTION WHEEL CHAIR WITH LEG LIFTS TO* GABAPENTIN 100 MG CAPSULE Take 2 capsules by mouth thre* GLIMEPIRIDE 1 MG TABLET TAKE 1 TABLET BY MOUTH EVERY * LANCETS UAD to test blood sugar up to* ZOLPIDEM 5 MG TABLET Take 1 tablet by mouth daily * BUPROPION XL 150 MG TAB Take 1 tablet by mouth once d* TIZANIDINE 4 MG TABLET Take 1 tablet by mouth every * TIZANIDINE 4 MG TABLET Take 1 tablet by mouth every * COMPOUNDED PRESCRIPTION Order: Geriatric assessment * METFORMIN 500 MG TABLET Take 1 tablet by mouth daily * ATORVASTATIN 40 MG TABLET TAKE 1 TABLET BY MOUTH AT BED* POLYETHYLENE GLYCOL 3350 17 G* Mix 1 scoop (17 gm) in liquid* AMLODIPINE 5 MG TABLET Take 2 tablets by mouth once * OXYBUTYNIN CHLORIDE ER 10 MG * Take 10 mg by mouth twice teo* LISINOPRIL 20 MG TABLET Take 1 tablet by mouth twice * ESCITALOPRAM 20 MG TABLET Take 1 tablet by mouth once d* ACETAMINOPHEN 325 MG TABLET Take 650 mg by mouth every 6 * CLOPIDOGREL 75 MG TABLET Take 1 tablet by mouth once d* ASPIRIN 81 MG TABLET,DELAYED * Take 1 tablet by mouth once d* COMPOUNDED PRESCRIPTION Lift chair. Dx. I69.3 M21.37* COMPOUNDED PRESCRIPTION group home - diabetic ma* COMPOUNDED PRESCRIPTION Left AFO brace, molded. Diag* COMPOUNDED PRESCRIPTION Left custom AFO. Dx left valery* COMPOUNDED PRESCRIPTION Physical Therapy--at Health P* COMPOUNDED PRESCRIPTION costum AFO dx is CVA Problem List As Of Date 07/21/2017 Noted Resolved DM w/o Complication Type II [E11.9] INVALID FOR*09/22/2013 More... Essential hypertension [I10] INVALID FOR* More... Depressive disorder, not elsewhere classified [*INVALID FOR*09/22/2013 More... Unspecified sleep apnea [G47.30] INVALID FOR* More... OBESITY NOS [E66.9] INVALID FOR* More... More... Backache, unspecified [M54.9] INVALID FOR*09/15/2013 More... Tobacco use disorder [F17.200] INVALID FOR* More... Diverticulosis of Colon (without Mention of Hem*INVALID FOR* More... OSTEOPENIA [M89.9, M94.9] INVALID FOR* More... GERD (Gastroesophageal Reflux Disease) [K21.9] INVALID FOR* Rosacea [L71.9] INVALID FOR* Yeast infection of the skin [B37.2] INVALID FOR*09/15/2013 Lung granuloma [J84.10] INVALID FOR* Diabetes mellitus with neuropathy [E11.40] INVALID FOR* More... Vaginal dryness [N89.8] INVALID FOR* More... Mastodynia [N64.4] INVALID FOR* Depression [F32.9] INVALID FOR* More... PAD (peripheral artery disease) ([facility]) [I73.9] INVALID FOR* Left foot drop [M21.372] INVALID FOR* Closed traumatic displaced fracture of base of *INVALID FOR* Left hemiparesis ([facility]) [G81.94] INVALID FOR* Abnormality of gait [R26.9] INVALID FOR* CVA, old, hemiparesis ([facility]) [I69.359] INVALID FOR* Encounter Status:Closed by NELL TURNER LPN on 07/21/17 ALLERGIES ALLERGIES DATE TYPE / CODE NAME / CODE REACTION SEVERITY SOURCE 06/08/2018 Drug promethazine Nausea Unknown [place] Allergy/416 HCl/[id number](NO [facility] [id number] ED CT) Repository ENCOUNTERS ENCOUNTERS ADMIT/DISCHARGE ACCOUNT ADMITTING ENCOUNTER LOCATION SOURCE NUMBER CLASS 06/22/2018/ [id number] Ambulatory [place] 8 5 [facility] ing:SDCRoom: Repository AC09 06/10/2018/ [id number] Muriel, Inpatient [place] 7 [place] Encounter [facility] ing:RURoom: Repository [id number]: 1 06/10/2018 [id number] Muriel Ambulatory BMSBuilding:B [place] 8 [place] [facility] Repository 06/08/2018/ [id number] [place], Ambulatory [place] 8 6 Rol[place] F [facility] ing:PCURoom: Repository [id number]: 1 06/08/2018 [id number] [place], Ambulatory BMSBuilding:B [place] 2 Rol[place] Christina [facility] Repository 06/08/2018 [id number] [place], Ambulatory BMSBuilding:B [place] 5 [place] [facility] Repository 06/08/2018 [id number] [place], Ambulatory BMSBuilding:B [place] 7 [place] Christina [facility] Repository 06/08/2018/ [id number] Ambulatory BMSBuilding:W [place] 8 2 [facility] Repository 06/08/2018/ [id number] Ambulatory [place] 8 0 [facility] ing:SDCRoom: Repository AC09 05/27/2018 [id number] Ambulatory [place] 7 [facility] ing:LABSPEC Repository 04/19/2018 [id number] Ambulatory [place] 6 [facility] ing:LABSPEC Repository 04/14/2018 [id number] Ambulatory [place] 3 [facility] ing:RAD Repository 04/08/2018 [id number] [place]ulatory [place] 8 [facility] ing:CT Repository 12/22/2017 [id number] Ambulatory [place] 8 [facility] ing:POLAB3 Repository 09/23/2017 [id number] Ambulatory [place] 3 [facility] ing:POLAB3 Repository 09/16/2017 [id number] Ambulatory [place] 0 [facility] ing:POLAB3 Repository 09/08/2017 [id number] Ambulatory [place] 9 [facility] ing:LAB.FUTUR Repository E 09/03/2017 [id number] Ambulatory [place] 6 [facility] ing:RAD Repository 09/01/2017 [id number] Ambulatory [place] 7 [facility] ing:POLAB3 Repository 08/25/2017 [id number] [place] 0 [facility] ing:CVS Repository 08/18/2017 [id number] Ambulatory [place] 9 [facility] ing:PSN Repository 07/28/2017 [id number] Ambulatory [place] 1 [facility] ing:RAD Repository 07/23/2017 [id number] Ambulatory [place] 1 [facility] ing:LABSPEC Repository 07/21/2017 [id number] [place]ulatory [place] 6 [facility]:LAB.FUTUR Repository E PAYERS PAYERS ENCOUNTER GUARANTOR PAYER SUBSCRIBER SOURCE 06/22/2018 YADI S Primary YADI S [place] [id number] [facility] DEVINOB: Community [place] [id number] Number: Repository [address]Nhm: (330) [id number] [phone] (HP) Date:9496-26-82WV [address] [place] [address] 90993RX: 06/22/2018 Secondary NOT GIVENUNK [place] Insurance:SELF PAY [facility]: Effective Repository Date:2018-04-15 06/10/2018 YADI S Primary YADI S [place] [id number] Insurance:[facility] KARVONENDOB: Community [place] MEDIC[place] [id number], [place] Number: Repository 16[address]Ryq: (330) [id number] [phone] (HP) Date:1306-32-73VI [address] [place] [address] 69600QQ: 06/10/2018 Secondary NOT GIVENUNK [place] Insurance:SELF PAY [facility] Number: Effective Repository Date:2018-06-10 06/10/2018 YADI S Primary YADI S [place] [id number] Insurance:[facility] C[facility] KARVONENDOB: Community [place] MED[place] [id number], [place] Number: Repository [address]Txu: (330) [id number] [phone] (HP) Date:7271-16-77EV [address] [place] [address] 06164TK: 06/10/2018 Secondary NOT GIVENUNK [place] Insurance:SELF PAY [facility] Number: Effective Repository Date:2018-06-10 06/08/2018 YADI S Primary YADI S [place] [id number] Insurance:[facility] C[facility] KARVONENDOB: Community [place] MED[place] [id number], [place] Number: Repository 77994Cun: (330) [id number] [phone] (HP) Date:1416-83-31UA [address] [place] [address] 02254MN: 06/08/2018 Secondary NOT GIVENUNK [place] Insurance:SELF PAY [facility] Number: Effective Repository Date:2018-06-08 06/08/2018 YADI S Primary YADI S [place] [id number] Insurance:[facility] CARE KARVONENDOB: Community [place] [id number], [place] Number: Repository 87[address]Dbu: 330 [id number] [phone] (HP) Date:0029-87-10IZ [address] [place] [address] 78327TD: 06/08/2018 Secondary NOT GIVENUNK [place] Insurance:SELF PAY [facility] Number: Effective Repository Date:2018-06-08 06/08/2018 YADI S Primary YADI S [place] [id number] Insurance:[facility] CARE KARVONENDOB: Community [place] [id number], [place] Number: Repository [address]Rys: 330 [id number] [phone] (HP) Date:6877-76-78YC [address] [place] [address] 83503DZ: 06/08/2018 Secondary NOT GIVENUNK [place] Insurance:SELF PAY [facility] Number: Effective Repository Date:2018-06-08 06/08/2018 YADI S Primary YADI S [place] [id number] Insurance:[facility] CARE KARVONENDOB: Community [place] [id number], [place] Number: Repository 16[address]Kiy: (330 [id number] [phone] (HP) Date:2427-89-18HJ [address] [place] [address] 67629RB: 06/08/2018 Secondary NOT GIVENUNK [place] Insurance:SELF PAY [facility] Number: Effective Repository Date:2018-06-08 06/08/2018 YADI S Primary YADI S [place] [id number] Insurance:[facility] CARE KARVONENDOB: Community [place] [id number], [place] Number: Repository [address]Hva: 330 [id number] [phone] (HP) Date:5410-98-99IU [address] [facility]urger, [place] [address]GK: 06/08/2018 Secondary NOT GIVENUNK [place] Insurance:SELF PAY [facility] Number: Effective Repository Date:2018-06-08 06/08/2018 YADI S Primary YADI S [place] [id number] Insurance:[facility] CARE KARVONENDOB: Community [place] [id number], [place] Number: Repository [address]Isr: (330 [id number] [phone] () Date:6797-69-54OG [address] [facility] [place], [place] [address]WU: 06/08/2018 Secondary NOT GIVENUNK [place] Insurance:SELF PAY [facility] Number: Effective Repository Date:2018-04-15 05/27/2018 YADI S Primary YADI S [place] [id number] Insurance:[facility] CARE KARVONENDOB: Community [place] MED[place]ARE[place] [id number], [place] Number: Repository [address]Lix: (330 [id number] [phone] () Date:9008-47-55TK [address] [facility] CL[facility]ICSJOSUEspurger, [place] [address]OM: 05/27/2018 Secondary NOT GIVENUNK [place] Insurance:SELF PAY [facility] Number: Effective Repository Date:2018-05-27 04/19/2018 YADI S Primary YADI S [place] [id number] Insurance:SUMMA CARE KARVONENDOB: Community [place] MEDICARE[place] [id number], [place] Number: Repository [address]Exh: 330 [id number] [phone] () Date:5596-77-15IM [address] [facility] [place]ICSJOSUE[place], [place] [address]GK: 04/19/2018 Secondary NOT GIVENUNK [place] Insurance:SELF PAY [facility] Number: Effective Repository Date:2018-04-19 04/14/2018 YADI S Primary YADI S [place] [id number] Insurance:SUMMA CARE KARVONENDOB: Community [place] MED[place]ARE[place] [id number], [place] Number: Repository [address]Vtu: (330) [id number] [phone] (HP) Date:9562-95-74EG [address] [address]KG: 04/14/2018 Secondary NOT GIVENUNK [place] Insurance:SELF PAY [facility] Number: Effective Repository Date:2018-04-14 04/08/2018 YADI S Primary YADI S [place] [id number] Insurance:[facility]MA CARE KARVONENDOB: Community [place] MEDICARE[place] [id number], [place] Number: Repository [address]Epl: (330) [id number] [phone] (HP) Date:1407-73-70XT [address]ICRUZsp[place], [place] [address]NN: 04/08/2018 Secondary NOT GIVENUNK [place] Insurance:SELF PAY [facility] Number: Effective Repository Date:2018-04-05 12/22/2017 Yadi S Primary Yadi S [place] [id number] Insurance:SUMMA CARE KarvonenDOB: Community [place] MEDICARE[place] [id number], [place] Number: Repository [address]Ptk: (330) [id number] [phone] (HP) Date:5258-01-38WJ [address], [place] [address]GK: 12/22/2017 Secondary NOT GIVENUNK [place] Insurance:SELF PAY [facility] Number: Effective Repository Date:2017-12-22 09/23/2017 Yadi S Primary Yaid S [place] [id number] Insurance:[facility] CARE KarvonenDOB: Community [place] MEDICARE[place] [id number], [place] Number: Repository [address]Xhb: (330 [id number] [phone] (HP) Date:2463-22-17YB [address], [place] [address]NI: 09/23/2017 Secondary NOT GIVENUNK [place] Insurance:SELF PAY [facility] Number: Effective Repository Date:2017-09-23 09/16/2017 Yadi S Primary Yadi S [place] [id number] Insurance:[facility] CARE KarvonenDOB: Community [place] MEDICAREPolicy [id number], [place] Number: Repository [address]Nwe: 330 [id number] [phone] () Date:9905-84-48SB [address] CENTERJOSUEspurger, [place] [address]FF: 09/16/2017 Secondary NOT GIVENUNK [place] Insurance:SELF PAY [facility] Number: Effective Repository Date:2017-09-16 09/08/2017 Yadi S Primary Yadi S [place] [id number] Insurance:[employer] CARE KarvonenDOB: Community [place] MEDICAREPolicy [id number], [place] Number: Repository [address]Gig: 330 [id number] [phone] () Date:5875-83-89NV [address] [facility] CL[facility]ICSJ[place]UE[place], [place] [address]EU: 09/08/2017 Secondary NOT GIVENUNK [place] Insurance:SELF PAY [facility] Number: Effective Repository Date:2017-08-16 09/03/2017 Yadi S Primary Yadi S [place] [id number] Insurance:[employer] CARE KarvonenDOB: Community [place] MEDICAREPolicy [id number], [place] Number: Repository [address]Vzy: 330 [id number] [phone] () Date:5253-56-40XH [address] [place] [address] 278[address]SS: 09/03/2017 Secondary NOT GIVENUNK [place] Insurance:SELF PAY [facility] Number: Effective Repository Date:2017-08-25 09/01/2017 Yadi S Primary Yadi S [place] [id number] Insurance:[employer] CARE KarvonenDOB: Community [place] MEDICARE[place] [id number], [place] Number: Repository [address]Auq: (330 [id number] [phone] (HP) Date:3369-22-15CH [address] [address]RZ: 09/01/2017 Secondary NOT GIVENUNK [place] Insurance:SELF PAY [facility] Number: Effective Repository Date:2017-09-01 08/25/2017 Yadi S Primary Yadi S [place] [id number] Insurance:[employer]MA CARE KarvonenDOB: Community [place] MEDICAREPolicy [id number], [place] Number: Repository [address]Ekg: (330) [id number] [phone] (HP) Date:6967-62-34LP [address]OS[facility] CENTERJOSUEspurger, [place] [address]HT: 08/25/2017 Secondary NOT GIVENUNK [place] Insurance:SELF PAY [facility] Number: Effective Repository Date:2017-08-25 08/18/2017 Yadi S Primary Yadi S [place] [id number] Insurance:[employer] CARE KarvonenDOB: Community [place] MEDICAREPolicy [id number], [place] Number: Repository [address]Bew: (330 [id number] [phone] (HP) Date:9121-96-08CM [address], [place] [address]HU: 08/18/2017 Secondary NOT GIVENUNK [place] Insurance:SELF PAY [facility] Number: Effective Repository Date:2017-06-23 07/28/2017 Yadi S Primary Yadi S [place] [id number] Insurance:[employer] CARE KarvonenDOB: Community [place] MEDICARE[place] [id number], [place] Number: Repository [address]Ofi: (330 [id number] [phone] (HP) Date:6178-92-93ZT [address]OSCEOL[facility] HEALTH CENTERJOSUEspurger, [place] [address]II: 07/28/2017 Secondary NOT GIVENUNK [place] Insurance:SELF PAY [facility] Number: Effective Repository Date:2017-07-28 07/23/2017 Yadi Hogan Primary Yadi Hogan [place] [id number] [facility] KarvonenDOB: Community [place] MEDICAREPolicy [id number], [place] Number: Repository [address]Rvs: 330 [id number] [phone] () Date:3854-06-82II [address]OS[facility] HEALTH CENTERJOSUEspurger, [place] [address]DG: 07/23/2017 Secondary NOT GIVENUNK [place] Insurance:SELF PAY [facility] Number: Effective Repository Date:2017-07-23 07/21/2017 Yadi Hogan Primary NOT GIVENUNK [place] [id number] Insurance:[facility]MA CARE [place] MED[place] [facility] [place] Number: Effective Repository [address]Tyw: (330) Date:8137-03-74HK [phone] () 362LiviaMIJOSUEspurger, [place] [address]KT: 07/21/2017 Secondary NOT GIVENUNK [place] Insurance:SELF PAY [facility] Number: Effective Repository Date:2017-07-21
== END 2018-06-08 10:05 | disposition short-term general hospital (02) ==
LOC: SDC 05:47 → AC 05:48
PROVIDERS: Family Provider Family Medicine Geriatric Medicine; PCP Family Medicine Geriatric Medicine; Referring Provider Urology; Visit Provider Urology
PROC: (CPT 64561; principal; 2018-06-08 07:20)
DX: N32.81 Overactive bladder (principal); N39.41 Urge incontinence; E11.9 Type 2 diabetes mellitus without complications; F32.9 Major depressive disorder, single episode, unspecified; I10 Essential (primary) hypertension; G47.30 Sleep apnea, unspecified; G20 Parkinson's disease; Z87.891 Personal history of nicotine dependence; Z79.2 Long term (current) use of antibiotics; Z79.84 Long term (current) use of oral hypoglycemic drugs; Z79.82 Long term (current) use of aspirin; Z79.02 Long term (current) use of antithrombotics/antiplatelets; Z79.899 Other long term (current) drug therapy
CPT/HCPCS: 00300; 64561; 64590; 72170; 76000; 82962; J7120; C1778; J2405

== ENCOUNTER 2018-06-08 10:07 | Observation (INO) | payer MEDICARE, SELFPAY ==
[2018-06-08] VITALS (13 sets, daily range): BP systolic 130–155; BP diastolic 67–84; PULSE 57–81; RESP 14–18; TEMP 36.4–37.6; O2SAT 90–97; BMI 36.2; BMI 38.1; BMI 36.1
--- NOTE | 2018-06-08 10:16 | EKG12_ITS ---
Test Reason : STROKE TEAM Blood Pressure : / mmHG Vent. Rate : 064 BPM Atrial Rate : 064 BPM P-R Int : 232 ms QRS Dur : 146 ms QT Int : 472 ms P-R-T Axes : 060 -55 -03 degrees QTc Int : 486 ms Sinus rhythm with 1st degree A-V block Left axis deviation Right bundle branch block Abnormal ECG Confirmed by CHESTER BERG, KEN ([id number]), film or videotape editor ABBE ELIAS ([id number] on 06/10/2018 2:26:45 PM Referred By: ADOLFO Confirmed By:KEN BRIGGS MD
--- NOTE | 2018-06-08 10:16 | CT_ITS ---
STUDY: CT BRAIN WITHOUT CONTRAST REASON FOR EXAM: Female, 72 years old. Possible CVA. RADIATION DOSAGE (If Supplied By Facility): CTDIvol = ( 44.99 ) mGy, DLP = ( 779.24 ) mGycm TECHNIQUE: Transaxial CT imaging of the brain was performed without administration of intravenous contrast material. Individualized dose optimization techniques were used for this CT. COMPARISON: Comparison is made with prior study dated November 16, 2016. FINDINGS: Normal soft tissue structures. There is hyperostosis frontalis internus. There is mild cerebral atrophy with widening of the extra-axial spaces and ventricular dilatation. There are areas of decreased attenuation within the white matter tracts of the supratentorial brain, consistent with microvascular disease changes. Old lacunar infarct in the body of the left caudate nucleus. Normal brainstem. Normal cerebellum. There is no intracranial hemorrhage. There are no findings of an acute ischemic infarction. Normal visualized paranasal sinuses. CT/Brain/Head without Contrast IMPRESSION: Chronic involutional changes of the brain. N.B. : The above information has been verbally conveyed by Tyson Lim MD to Michael Ocampo on 06/08/2018 10:44:50 (ET). Electronically Signed: Tyosn Lim MD at 10:46 EST Tel [phone], Service support ,
--- NOTE | 2018-06-08 10:19 | CT_ITS ---
STUDY: CTA NECK WITH CONTRAST REASON FOR EXAM: Female, 72 years old. CVA. RADIATION DOSAGE (If Supplied By Facility): CTDIvol = ( 16.77 ) mGy, DLP = ( 741.44 ) mGycm TECHNIQUE: CT angiography with multi-detector data acquisition was performed from the aortic arch to the skull base following intravenous administration of 100ML ml of Isovue 300 contrast. MIP images were reconstructed from the axial data set. Post-processing of the angiographic images was performed, with multiplanar reformation and 3D reconstruction. Individualized dose optimization techniques were used for this CT. COMPARISON: None. FINDINGS: AORTIC ARCH: There is atherosclerotic calcific plaque formation of the aortic arch and great vessels arising from the aortic arch, without a hemodynamically significant stenosis. There is a normal origin of the brachiocephalic, left common carotid, and left subclavian arteries. RIGHT CAROTID ARTERIES: Normal right common carotid artery (CCA). Normal right common carotid bulb. There is extensive atherosclerotic plaque formation of the origin of the right internal carotid artery with an estimated stenosis of greater than 70%. Normal visualized cervical portion of the right internal carotid artery. Normal origin of the right external carotid artery (ECA). LEFT CAROTID ARTERIES: Normal left common carotid artery (CCA). Normal left common carotid bulb. There is mild atherosclerotic plaque formation of the origin of the left internal carotid artery with less than 50% cross sectional diameter stenosis. Normal visualized cervical portion of the left internal carotid artery. Normal origin of the left external carotid artery (ECA). VERTEBRAL ARTERIES: There is enhancement within the bilateral vertebral arteries with a small right vertebral artery, and a dominant left vertebral artery. IMPRESSION: Calcific plaque at the origin of the right internal carotid artery causing greater than 70% luminal narrowing. N.B. : The above information has been verbally conveyed by Tyson Lim MD to Michael Ocampo on 06/08/2018 10:50:29 (ET). Electronically Signed: Tyson Lim MD at 10:50 EST Tel [phone], Service support , STUDY: CTA OF THE BRAIN REASON FOR EXAM: Female, 72 years old. Findings suggestive of CVA. RADIATION DOSAGE (If Supplied By Facility): CTDIvol = ( ) mGy, DLP = ( ) mGycm TECHNIQUE: CT angiography was performed with a multi-detector CT scanner. Data acquisition was obtained from the skull base through the vertex following intravenous administration of 100 ml of Isovue-300. MIP images were reconstructed from the axial data set. Post-processing of the angiographic images was performed, with multiplanar reformation and 3D reconstruction. Individualized dose optimization techniques were used for this CT. COMPARISON: None. FINDINGS: Normal bilateral petrous carotid arteries. There is calcified plaque formation of the right cavernous carotid artery, without a cross-sectional luminal stenosis. There is calcified plaque formation of the left cavernous carotid artery, without a cross-sectional luminal stenosis. Normal right A1 segments of the anterior cerebral artery. Normal left A1 segments of the anterior cerebral artery. Normal intact anterior communicating artery (ACOM). Normal bilateral A2 segments of the anterior cerebral arteries. Normal right M1 and M2 segments of the middle cerebral arteries, with a normal M1 bifurcation. Normal left M1 and M2 segments of the middle cerebral arteries, with a normal M1 bifurcation. Normal right posterior communicating artery (PCOM). Normal left posterior communicating artery (PCOM). Normal bilateral vertebral arteries. Normal basilar artery with a normal basilar bifurcation. The visualized bilateral superior cerebellar (SCA) arteries are normal. Normal bilateral P1, P2 and visualized P3 segments of the posterior cerebral arteries. There is no demonstrated aneurysm of the [place]. CT/CTA Neck W/WO Contrast IMPRESSION: Normal [place] without a demonstrated aneurysm or hemodynamically significant stenosis. N.B. : The above information has been verbally conveyed by Tyson Lim MD to Michael Ocampo on 06/08/2018 10:50:29 (ET). Electronically Signed: Tyson Lim MD at 10:52 EST Tel [phone], Service support ,
--- NOTE | 2018-06-08 10:19 | CT_ITS ---
STUDY: CTA NECK WITH CONTRAST REASON FOR EXAM: Female, 72 years old. CVA. RADIATION DOSAGE (If Supplied By Facility): CTDIvol = ( 16.77 ) mGy, DLP = ( 741.44 ) mGycm TECHNIQUE: CT angiography with multi-detector data acquisition was performed from the aortic arch to the skull base following intravenous administration of 100ML ml of Isovue 300 contrast. MIP images were reconstructed from the axial data set. Post-processing of the angiographic images was performed, with multiplanar reformation and 3D reconstruction. Individualized dose optimization techniques were used for this CT. COMPARISON: None. FINDINGS: AORTIC ARCH: There is atherosclerotic calcific plaque formation of the aortic arch and great vessels arising from the aortic arch, without a hemodynamically significant stenosis. There is a normal origin of the brachiocephalic, left common carotid, and left subclavian arteries. RIGHT CAROTID ARTERIES: Normal right common carotid artery (CCA). Normal right common carotid bulb. There is extensive atherosclerotic plaque formation of the origin of the right internal carotid artery with an estimated stenosis of greater than 70%. Normal visualized cervical portion of the right internal carotid artery. Normal origin of the right external carotid artery (ECA). LEFT CAROTID ARTERIES: Normal left common carotid artery (CCA). Normal left common carotid bulb. There is mild atherosclerotic plaque formation of the origin of the left internal carotid artery with less than 50% cross sectional diameter stenosis. Normal visualized cervical portion of the left internal carotid artery. Normal origin of the left external carotid artery (ECA). VERTEBRAL ARTERIES: There is enhancement within the bilateral vertebral arteries with a small right vertebral artery, and a dominant left vertebral artery. IMPRESSION: Calcific plaque at the origin of the right internal carotid artery causing greater than 70% luminal narrowing. N.B. : The above information has been verbally conveyed by Tyson Lim MD to Michael Ocampo on 06/08/2018 10:50:29 (ET). Electronically Signed: Tyson Lim MD at 10:50 EST Tel [phone], Service support , STUDY: CTA OF THE BRAIN REASON FOR EXAM: Female, 72 years old. Findings suggestive of CVA. RADIATION DOSAGE (If Supplied By Facility): CTDIvol = ( ) mGy, DLP = ( ) mGycm TECHNIQUE: CT angiography was performed with a multi-detector CT scanner. Data acquisition was obtained from the skull base through the vertex following intravenous administration of 100 ml of Isovue-300. MIP images were reconstructed from the axial data set. Post-processing of the angiographic images was performed, with multiplanar reformation and 3D reconstruction. Individualized dose optimization techniques were used for this CT. COMPARISON: None. FINDINGS: Normal bilateral petrous carotid arteries. There is calcified plaque formation of the right cavernous carotid artery, without a cross-sectional luminal stenosis. There is calcified plaque formation of the left cavernous carotid artery, without a cross-sectional luminal stenosis. Normal right A1 segments of the anterior cerebral artery. Normal left A1 segments of the anterior cerebral artery. Normal intact anterior communicating artery (ACOM). Normal bilateral A2 segments of the anterior cerebral arteries. Normal right M1 and M2 segments of the middle cerebral arteries, with a normal M1 bifurcation. Normal left M1 and M2 segments of the middle cerebral arteries, with a normal M1 bifurcation. Normal right posterior communicating artery (PCOM). Normal left posterior communicating artery (PCOM). Normal bilateral vertebral arteries. Normal basilar artery with a normal basilar bifurcation. The visualized bilateral superior cerebellar (SCA) arteries are normal. Normal bilateral P1, P2 and visualized P3 segments of the posterior cerebral arteries. There is no demonstrated aneurysm of the [place]. CT/CTA Head W/WO Contrast IMPRESSION: Normal [place] without a demonstrated aneurysm or hemodynamically significant stenosis. N.B. : The above information has been verbally conveyed by Tyson Lim MD to Michael Ocampo on 06/08/2018 10:50:29 (ET). Electronically Signed: Tyson Lim MD at 10:52 EST Tel [phone], Service support ,
--- NOTE | 2018-06-08 10:33 | RAD_ITS ---
STUDY: X-RAY CHEST REASON FOR EXAM: Female, 72 years old. Facial droop. TECHNIQUE: Single AP portable view of the chest. COMPARISON: Comparison is made with prior study dated May 12, 2017. FINDINGS: EKG electrodes are seen. Limited inspiratory effort. Stable mild increased linear markings at the left lung base suggestive of left basilar atelectasis and/or scarring. Scattered calcified granulomas. There is moderate cardiac enlargement. Normal mediastinum and iliana. Normal visualized pulmonary arteries. There is atherosclerotic tortuosity of the aortic arch and descending thoracic aorta. There are diffuse degenerative changes of the visualized thoracic spine. Normal visualized ribs, clavicles, and shoulders. There is no demonstrated abnormality of the visualized soft tissue structures of the upper abdomen. RAD/Chest 1 View IMPRESSION: Cardiomegaly. Stable increased markings at the left lung base suggestive of linear atelectasis and/or scarring. Electronically Signed: Tyson Lim MD at 11:16 EST Tel [phone], Service support ,
[2018-06-08 10:35] LABS: Bedside Glucose 221 mg/dL (70-110)
--- NOTE | 2018-06-08 10:38 | ED.RN ---
PAGED LOKESH AT 10:30, PAGED AGAIN AT 10:38
[2018-06-08 10:48] LABS: Absolute Lymphocyte Count 2.19 X10^3/ul (0.83-4.51); Absolute Neutrophil Count 3.6 X10^3/uL (2.0-7.7); Basophil# 0.03 X10^3/uL; Basophil% 0.5 % (0-1); Eosinophil# 0.17 X10^3/uL; Eosinophils% 2.6 % (0-5); Hematocrit 34.3 % (37-47); Hemoglobin 11.2 g/dl (12.0-15.0); Lymphocyte # 2.19 X10^3/ul (4.0); Lymphocyte % 33.2 % (19-41); Mean Corp Hgb Conc 32.7 g/gl (32-36); Mean Corpuscular Hgb 29.8 pg (27.0-32.0); Mean Corpuscular Volume 91.2 fL (81-99); Mean Platelet Vol. 10.9 fl (6.2-12.0); Monocyte# 0.55 X10^3/uL; Monocyte% 8.3 % (0-10); Neutrophil # 3.64 X10^3/uL (2.7-7.7); Neutrophil % 55.2 % (47-70); Platelet Count 167 K/mm3 (150-450); RBC Distribution Width CV 12.9 % (11.6-14.6); RBC Distribution Width SD 42.8 fl (35.1-43.9); Red Blood Count 3.76 M/mm3 (4.2-5.4); White Blood Count 6.6 K/mm3 (4.4-11.0)
[2018-06-08 10:49] LABS: POSITIVE COUNT NO; POSITIVE DIFFERENTIAL NO; POSITIVE MORPHOLOGY NO
[2018-06-08 10:51] LABS: International Normalized Ratio 1.1; Partial Thromboplast Time 31.5 Seconds (24.1-36.2); Prothrombin Time (Protime)PT. 14.4 SECONDS (11.7-14.9)
--- NOTE | 2018-06-08 10:51 | ED.RN ---
DR CAMPA CALLED BACK AT 10:50
--- NOTE | 2018-06-08 11:03 | VDLE_ITS ---
Reason For Study: LLE swelling RIGHT LEFT CFV is compressible, spontaneous, phasic, GSV is normal. competent and demonstrates normal CFV is compressible, spontaneous, phasic, augmentation. competent, and demonstrates normal Procedure augmentation. Exam performed in department. FV is compressible, spontaneous, phasic, A preliminary report was called and/or faxed competent and demonstrates normal to ED. augmentation. POP V is compressible, spontaneous, phasic, competent and demonstrates normal augmentation. T/P Trunk is compressible. PTV is compressible. LT PerV is compressible. <> Interpretation Summary Deep veins of the left lower extremity are patent and compressible segmentally. There is no evidence of left lower extremity deep vein thrombosis. Valvular competence appears intact within the proximal deep venous system on the left . The left greater saphenous vein appears patent and compressible segmentally. Ordering Physician: Michael Ocampo Referring Physician: Bakari Ware Chi Performed By: Lorrie Orellana RVT, RDCS and Student
[2018-06-08 11:08] LABS: Anion Gap 8 (5-15); BUN 31 mg/dL (7-18); BUN/Creat Ratio 26.7 RATIO (10-20); Calcium,Total 7.8 mg/dL (8.5-10.1); Chloride 105 mmol/L (98-107); Creatinine, Serum 1.16 mg/dL (0.55-1.02); EST Glomerular Filtration Rate 49 mL/min (>60); Est Glom Filt Rate - Afr Amer 59 mL/min (>60); Estimated Creatinine Clearance 36.26 ml/min; Glucose 217 mg/dL (74-106); Potassium 3.7 mmol/L (3.5-5.1); Sodium Level 141 mmol/L (136-145)
--- NOTE | 2018-06-08 11:11 | ED.VISSUMM ---
- ER Visit Summary Date of Service: 06/08/18 Chief Complaint: Stroke History of Present Illness: The patient is a 72 F with stroke symptoms. Patient was last seen normal at 6:20 AM this morning. She went to critical care physician and had a bladder stimulator placed. She woke up from anesthesia and her family noticed that she had a right-sided facial droop and slurred speech around 9:45 AM this morning. She has not had these symptoms before. She had a remote stroke in 2011 or 2012 and has some left leg weakness. She complains of some left hip pain but no other complaints at this time. She does take aspirin and Plavix. Physical Examination: Afebrile and vital signs unremarkable. Alert and oriented. No acute distress. She has right-sided facial droop, dysarthria, and has decreased sensation in her right arm. I gave her an NIH stroke scale of 3. The remainder of her neurologic exam was unremarkable. Heart regular. Lungs clear. Abdomen soft. Test Results: EKG showed sinus rhythm at a rate of 64 with a right bundle branch block pattern. Troponin normal. Hemoglobin 11.2, glucose 217, BUN 31, creatinine 1.16. PT and PTT normal. Chest x-ray pending but appears unremarkable. Left leg duplex studies are pending. CT brain showed chronic changes. CTA head and neck showed a right internal carotid artery plaque at 70% but was otherwise unremarkable. Emergency Department Course and Treatment: Patient was seen immediately as a stroke team. Her NIH score was 3. She went to CAT scan. Imaging showed chronic changes. Nothing acute. Nursing did note that she was confused to the month, but on my evaluation she was not. No other changes in her exam or findings. I spoke with the radiologist as well as the neurologist. She is not a candidate for TPA. I spoke with the patient and her family at bedside. Will be admitted for a stroke workup. Family noted that she had some swelling to her left leg. She has diffuse swelling bilaterally, worse on the left. Neurovascularly intact. Ultrasound is pending. Patient was discussed with the hospitalist and will be admitted for further care. Treatment Plan: As above Disposition: Admission Impression: 1. Acute ischemic stroke 2. Left leg swelling This note was generated with [employer] software. It may contain incorrect words, spelling, and punctuation that were not noted in review of the chart prior to signing ED Disposition - Plan for ED Patient: Chief Complaint: Neuro S/Sx Referrals: Bakari Ware Chi, MD [Primary Care Provider] -
--- NOTE | 2018-06-08 11:15 | ED.DCSUM_ITS ---
- ER Visit Summary Date of Service: 06/08/18 Chief Complaint: Stroke History of Present Illness: The patient is a 72 F with stroke symptoms. Patient was last seen normal at 6:20 AM this morning. She went to career technical education instructor and had a bladder stimulator placed. She woke up from anesthesia and her family no ticed that she had a right-sided facial droop and slurred speech around 9:45 AM this morning. She has not had these symptoms before. She had a remote stroke in 2011 or 2012 and has some left leg weakness. She complains of some left hip pain but no other complaints at this time. She does take aspirin and Plavix. Physical Examination: Afebrile and vital signs unremarkable. Alert and oriented. No acute distress. She has right-sided facial droop, dysarthria, and has decreased sensation in her right arm. I gave her an NIH stroke scale of 3. The remainder of her neurologic exam was unremarkable. Heart regular. Lungs clear. Abdomen soft. Test Results: EKG showed sinus rhythm at a rate of 64 with a right bundle branch block pattern. Troponin normal. Hemoglobin 11.2, glucose 217, BUN 31, creatinine 1.16. PT and PTT normal. Chest x-ray pending but appears unremarkable. Left leg duplex studies are pending. CT brain showed chronic changes. CTA head and neck showed a right internal carotid artery plaque at 70% but was otherwise unremarkable. Emergency Department Course and Treatment: Patient was seen immediately as a stroke team. Her NIH score was 3. She went to CAT scan. Imaging showed chronic changes. Nothing acute. Nursing did note that she was confused to the month, but on my evaluation she was not. No other changes in her exam or findings. I spoke with the radiologist as well as the neurologist. She is not a candidate for TPA. I spoke with the patient and her family at bedside. Will be admitted for a stroke workup. Family noted that she had some swelling to her left leg. She has diffuse swelling bilaterally, worse on the left. Neurovascularly intact. Ultrasound is pending. Patient was discussed with the hospitalist and will be admitted for further care. Treatment Plan: As above Disposition: Admission Impression: 1. Acute ischemic stroke 2. Left leg swelling This note was generated with [employer] software. It may contain incorrect words, spelling, and punctuation that were not noted in review of the chart prior to signing ED Disposition - Plan for ED Patient: Chief Complaint: Neuro S/Sx Referrals: Bakari Ware Chi, MD [Primary Care Provider] -
--- NOTE | 2018-06-08 11:46 | NURSING ---
CALLED MATT CHARGE IN ER THAT PT OKAY TO COME TO FLOOR. ROOM IS CLEAN.
--- NOTE | 2018-06-08 12:08 | ECHOCS_ITS ---
Reason For Study: TIA/CVA Procedure This was a 2D Doppler, Color Flow transthoracic echocardiogram. The study was technically difficult. Contrast injection was performed. Exam performed portable in patient room. Left Ventricle Normal size and thickness. The estimated ejection fraction is 75 %. Stage 2 diastolic dysfunction. No regional wall motion abnormalities noted. Right Ventricle Normal size and thickness. Normal systolic function. Atria Normal left atrium. Normal right atrium. Normal atrial septum. Mitral Valve The mitral valve is structurally normal. No prolapse or stenosis seen. Trivial mitral valve insufficiency. Tricuspid Valve Normal tricuspid valve. Mild (1+) tricuspid valve insufficiency. Right ventricular systolic pressure estimated to be 38 mmHg. Mild pulmonary hypertension. Aortic Valve Trisinus/trileaflet aortic valve. Mild diffuse aortic valve thickening. There is no aortic stenosis. Pulmonic Valve Normal pulmonic valve. Great Vessels Normal aortic root. Normal arch. Normal inferior vena cava. Inferior vena cava collapse with sniff. Pericardium/Pleural No pericardial effusion. Medication Diluted definity 2ml given slow IV push to enhance endocardial definition. MMode/2D Measurements & Calculations LVIDd: 4.7 cm IVSd: 1.2 cm Ao root diam: 3.1 cm LVIDs: 2.9 cm LVPWd: 1.2 cm LA dimension: 3.8 cm FS: 38.8 % LAV(MOD-bp): 33.5 ml LVAd ap4: 26.1 cm2 SV(MOD-sp4): 53.7 ml LAV(MOD-bp) Indexed: 16.7 ml/m2 EDV(MOD-sp4): 76.8 ml LAV(MOD-sp2): 41.7 ml EDV(sp4-el): 76.2 ml LAV(MOD-sp4): 24.3 ml LVAs ap4: 12.4 cm2 ESV(MOD-sp4): 23.2 ml ESV(sp4-el): 22.1 ml EF(MOD-sp4): 69.9 % EF(sp4-el): 71.0 % SV(sp4-el): 54.1 ml LA A4 area: 11.7 cm2 RA A4 area: 15.6 cm2 Doppler Measurements & Calculations MV E max shahbaz: 120.8 cm/sec Lat Peak E' Shahbaz: 6.1 cm/sec Med Peak E' Shahbaz: 5.6 cm/sec MV A max shahbaz: 93.4 cm/sec E/E' lat: 19.7 E/E' med: 21.8 MV E/A: 1.3 Ao V2 max: 136.3 cm/sec LV V1 max: 92.0 cm/sec PA V2 max: 74.9 cm/sec Ao max P.4 mmHg LV V1 max P.4 mmHg Ao V2 mean: 95.8 cm/sec Ao mean P.1 mmHg Ao V2 VTI: 33.3 cm TR max shahbaz: 288.1 cm/sec TR max P.2 mmHg Interpretation Summary Stage 2 diastolic dysfunction. Trivial mitral valve insufficiency. Mild (1+) tricuspid valve insufficiency. Right ventricular systolic pressure estimated to be 38 mmHg. The estimated ejection fraction is 75 %. Compared to echo report dated 11/16/2016, no appreciable changes noted. Ordering Physician: Rolando Avila Referring Physician: Bakari Ware Chi Performed By: Janis Garcia RDCS, RVT
[2018-06-08] MEDS: 0.9% Normal Saline 1,000 ML 100 ML IV ×2 (13:00→22:03)
[2018-06-08 13:06] LABS: Absolute Lymphocyte Count 2.18 X10^3/ul (0.83-4.51); Absolute Neutrophil Count 3.8 X10^3/uL (2.0-7.7); Basophil# 0.02 X10^3/uL; Basophil% 0.3 % (0-1); Eosinophil# 0.18 X10^3/uL; Eosinophils% 2.7 % (0-5); Hematocrit 39.3 % (37-47); Hemoglobin 12.9 g/dl (12.0-15.0); Lymphocyte # 2.18 X10^3/ul (4.0); Lymphocyte % 32.4 % (19-41); Mean Corp Hgb Conc 32.8 g/gl (32-36); Mean Corpuscular Hgb 29.9 pg (27.0-32.0); Monocyte% 7.4 % (0-10); Neutrophil # 3.84 X10^3/uL (2.7-7.7); Neutrophil % 57.2 % (47-70); POSITIVE COUNT NO; POSITIVE DIFFERENTIAL NO; POSITIVE MORPHOLOGY NO; Platelet Count 173 K/mm3 (150-450); RBC Distribution Width CV 12.9 % (11.6-14.6); RBC Distribution Width SD 42.8 fl (35.1-43.9); Red Blood Count 4.32 M/mm3 (4.2-5.4); White Blood Count 6.7 K/mm3 (4.4-11.0)
--- NOTE | 2018-06-08 13:48 | PCM.CONS.GEN ---
Reason for Consult Date of Consultation: 06/08/18 Reason for Consultation: cva History of Present Illness: The patient is a 72 year old right handed white female who had a stroke affecting her left side 6 yrs ago, on asa/plavix and statin since then. normal at 630am, had bladder stimulator placed this am and was noted to have speech abnormality when she awoke from anesthesia, now improved.also notes transient vertical diplopia. feels normal. no other complaints. didnt sleep well last night. had been off asa/plavix for 7 days prior to her surgery. not tpa candidate due to time to presentation, and minor symptoms. per ed notes nihss was 3. lives at home with daughter, uses walker, occasional falls. Past Medical History Past Medical History (Chronic Problems): Chronic Problems Type 2 diabetes mellitus (Chronic) Hypertension (Chronic) Diabetic neuropathy (Chronic) Depression (Chronic) Physical debility (Chronic) Obesity (Chronic) CVA (cerebral infarction) (Chronic) Tobacco abuse (Chronic) Stroke (Chronic) Allergies promethazine HCl [From Phenergan] Adverse Reaction (Verified 06/08/18 10:32) Nausea Home Medications: Ambulatory Orders Medication Instructions Recorded Aspirin [Aspirin, Baby] 81 mg PO DAILY@0800 #30 tab.chew 03/09/16 Atorvastatin Calcium [Lipitor] 40 mg PO QHS #30 tablet 03/09/16 Clopidogrel Bisulfate [Plavix] 75 mg PO DAILY #30 tablet 03/09/16 Glimepiride [Amaryl] 1 mg PO DAILY #30 tablet 03/09/16 Lisinopril [Zestril] 20 mg PO DAILY #30 tablet 03/09/16 Escitalopram Oxalate [Lexapro] 20 mg PO QHS 06/14/17 Gabapentin [Neurontin] 200 mg PO TIDCM 06/14/17 Baclofen 20 mg PO TID 06/01/18 Galantamine HBr [Galantamine ER] 8 mg PO BID 06/01/18 Acetaminophen [Tylenol Extra 500 mg PO Q4H PRN PRN #20 tablet 06/08/18 Strength] Memantine HCl 10 mg PO BID 06/08/18 Surgical History: adenoidectomy, appendectomy, - - lumbar herniated disk surgery Psychiatric History: Anxiety - Patient complains of anxiety symptoms but does not take any medications 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 Smoking Status: Former smoker - *Family History Maternal History Items: Cancer, Hypertension, - Paternal History Items: - Sibling History Items: No pertinent history Review of Systems Constitutional: Denies: Chills, Fever, Weight Change HEENT: Denies: Head Aches, Sinus Congestion, Sinus Drainage Cardiovascular: Denies: Chest Pain, Palpitations Respiratory: Denies: Cough, Shortness of breath at rest, Sputum production Gastrointestinal: Denies: Abdominal Pain, Nausea, Vomiting Genitourinary: Denies: Dysuria Musculoskeletal: Denies: Joint Pain, Joint Tenderness Skin: Denies: Rash, Wounds Neurological: Denies: Numbness, Tingling, Focal weakness Psychiatric: Denies: Anxiety, Depression, Homicidal Ideations, Suicidal Ideations Hematologic/ Lymphatic: Denies: Easy Bruising, Easy Bleeding - Physical Exam General: Alert, Oriented x3, Cooperative, No apparent distress Neurological: Cranial nerves II-XII grossly intact, Sensory exam intact to light touch and pain, - - mild left arm and leg weakness and discoord with orbit testing Psych/Mental Status: Normal Affect Vital Signs Temp Pulse Resp BP Pulse Ox 36.4 C L 78 18 138/74 H 93 06/08/18 12:13 06/08/18 12:13 06/08/18 12:13 06/08/18 12:15 06/08/18 12:13 Oxygen Flow Rate (L/min) 2 Oxygen Delivery Method Room Air Weight: 94 kg Body Mass Index (BMI) 36.1 Finger Stick Blood Glucose 221 Laboratory Tests Past 24 Hrs 06/08/18 06/08/18 06/08/18 10:29 10:29 10:29 WBC 6.6 RBC 3.76 L Hgb 11.2 L Hct 34.3 L MCV 91.2 MCH 29.8 MCHC 32.7 RDW 12.9 RDW Differential 42.8 Plt Count 167 MPV 10.9 Immature Gran % (Auto) 0.200 Neut % (Auto) 55.2 Lymph % (Auto) 33.2 [place] % (Auto) 8.3 Eos % (Auto) 2.6 Baso % (Auto) 0.5 Absolute Neuts (auto) 3.6 Absolute Lymphs (auto) 2.19 Total Counted Not Reportable PT 14.4 INR 1.1 APTT 31.5 Sodium 141 Potassium 3.7 Chloride 105 Carbon Dioxide 28.0 Anion Gap 8 BUN 31 H Creatinine 1.16 H Estim Creat Clear Calc 36.26 Est GFR (MDRD) Af Amer 59 L Est GFR (MDRD) Non-Af 49 L BUN/Creatinine Ratio 26.7 H Glucose 217 H Calcium 7.8 L Troponin I < 0.015 06/08/18 12:45 WBC 6.7 RBC 4.32 Hgb 12.9 Hct 39.3 MCV 91.0 MCH 29.9 MCHC 32.8 RDW 12.9 RDW Differential 42.8 Plt Count 173 MPV 11.0 Immature Gran % (Auto) 0.000 Neut % (Auto) 57.2 Lymph % (Auto) 32.4 [place] % (Auto) 7.4 Eos % (Auto) 2.7 Baso % (Auto) 0.3 Absolute Neuts (auto) 3.8 Absolute Lymphs (auto) 2.18 Total Counted Not Reportable PT INR APTT Sodium Potassium Chloride Carbon Dioxide Anion Gap BUN Creatinine Estim Creat Clear Calc Est GFR (MDRD) Af Amer Est GFR (MDRD) Non-Af BUN/Creatinine Ratio Glucose Calcium Troponin I POC Glucose 06/08/18 10:10 POC Glucose 221 H Current Home Med List Medication Instructions Recorded Confirmed Type Aspirin [Aspirin, Baby] 81 mg PO DAILY@0800 #30 tab.chew 03/09/16 06/08/18 Rx Atorvastatin Calcium [Lipitor] 40 mg PO QHS #30 tablet 03/09/16 06/08/18 Rx Clopidogrel Bisulfate [Plavix] 75 mg PO DAILY #30 tablet 03/09/16 06/08/18 Rx Glimepiride [Amaryl] 1 mg PO DAILY #30 tablet 03/09/16 06/08/18 Rx Lisinopril [Zestril] 20 mg PO DAILY #30 tablet 03/09/16 06/08/18 Rx Escitalopram Oxalate [Lexapro] 20 mg PO QHS 06/14/17 06/08/18 History Gabapentin [Neurontin] 200 mg PO TIDCM 06/14/17 06/08/18 History Baclofen 20 mg PO TID 06/01/18 06/08/18 History Galantamine HBr [Galantamine ER] 8 mg PO BID 06/01/18 06/08/18 History Acetaminophen [Tylenol Extra 500 mg PO Q4H PRN PRN #20 tablet 06/08/18 06/08/18 Rx Strength] Memantine HCl 10 mg PO BID 06/08/18 06/08/18 History Current Medications Generic Name Dose Route Start Last Admin Trade Name Estevan PRN Reason Stop Dose Admin Sodium Chloride 500 mls @ 999 mls/hr 06/08/18 10:16 06/08/18 10:50 IV 999 mls/hr .Q31M ONE Administration Sodium Chloride 1,000 mls @ 100 mls/hr 06/08/18 12:08 06/08/18 13:00 IV 100 mls/hr .Q10H MADHAV Administration Magnesium Hydroxide 30 ml 06/08/18 12:08 Milk Of Magnesia PO DAILY PRN Constipation Sodium Chloride 5 - 15 ml 06/08/18 13:30 IV UD PRN SALINE FLUSH ct no acute. cta shows right ica stenosis, Assessment/Plan All Active Problems UTI (urinary tract infection) (Acute) Difficulty walking (Acute) mechanical fall (Acute) Weakness (Acute) Left hemiparesis (Acute) Confusion (Acute) cva, s/p implantation of bladder stimulator stimulator wires placed, no stimulator yet, mri if able restart asa/plavix/statin if ok with urology pt/ot/sp
--- NOTE | 2018-06-08 14:55 | PCM.PN.BLA ---
Progress Note Patient is status post a InterStim therapy she had her aspirin and Plavix held for the procedure for the risk of bleeding, after the procedure and the PACU she was having some new facial droops she was transferred to the emergency room for further evaluation workup was done and was so far negative, MRI was ordered however the MRI department will do the MRI given the recent implant despite my citing evidence that it is safe to do they wanted company implant records and is okay to do which does not exist. Therefore MRI was not done despite my okay in the procedure. Neurology has been consulted from my standpoint she we can resume all anticoagulation very low risk procedure. I will follow her clinically I appreciate the input thanks
[2018-06-08] MEDS: Clopidogrel Bisulfate 75 MG Tablet PO (16:22)
[2018-06-08] MEDS: Aspirin 81 MG TAB.CHEW PO (16:22)
[2018-06-08 16:51] LABS: Bedside Glucose 182 mg/dL (70-110)
--- NOTE | 2018-06-08 17:32 | HP.PCM_ITS ---
Problem List (1) Type 2 diabetes mellitus Status: Chronic (2) Hypertension Status: Chronic (3) Diabetic neuropathy Status: Chronic (4) Depression Status: Chronic (5) CVA (cerebral infarction) Status: Acute History of Present Illness Date of Admission: 06/08/18 Chief Complaint: Dysarthria The patient is a 72 year old F with a PMH as below who presents to the ER with a right facial droop and slurred speech after a bladder stimulation procedure by urology today. She was last known normal at around 6 am for the procedure and close to 10 am her family noticed that in recovery after the procedure she had a rightsided facial droop and slurred speech. She had had a stroke about 7 years ago with left sided is symptoms and has residual left sided weakness. In the ER she had an NIH of 3 for the facial droop, dysarthria and RUE numbness. She had a CT head which was negative and CTA of the head and neck with a greater than 70% stenosis in the ROSA. Past Medical History Past Medical History (Chronic Problems): Chronic Problems Type 2 diabetes mellitus (Chronic) Hypertension (Chronic) Diabetic neuropathy (Chronic) Depression (Chronic) Physical debility (Chronic) Obesity (Chronic) Tobacco abuse (Chronic) Stroke (Chronic) Allergies promethazine HCl [From Phenergan] Adverse Reaction (Verified 06/08/18 10:32) Nausea Home Medications: Ambulatory Orders Medication Instructions Recorded Aspirin [Aspirin, Baby] 81 mg PO DAILY@0800 #30 tab.chew 03/09/16 Atorvastatin Calcium [Lipitor] 40 mg PO QHS #30 tablet 03/09/16 Clopidogrel Bisulfate [Plavix] 75 mg PO DAILY #30 tablet 03/09/16 Glimepiride [Amaryl] 1 mg PO DAILY #30 tablet 03/09/16 Lisinopril [Zestril] 20 mg PO DAILY #30 tablet 03/09/16 Escitalopram Oxalate [Lexapro] 20 mg PO QHS 06/14/17 Gabapentin [Neurontin] 200 mg PO TIDCM 06/14/17 Baclofen 20 mg PO TID 06/01/18 Galantamine HBr [Galantamine ER] 8 mg PO BID 06/01/18 Acetaminophen [Tylenol Extra 500 mg PO Q4H PRN PRN #20 tablet 06/08/18 Strength] Memantine HCl 10 mg PO BID 06/08/18 Surgical History: adenoidectomy, appendectomy, - - lumbar herniated disk surgery Psychiatric History: Anxiety - Patient complains of anxiety symptoms but does not take any medications 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 Smoking Status: Former smoker Tobacco Use: Cigarettes Alcohol: None Drugs: None - *Family History Maternal History Items: Cancer, Hypertension, - Paternal History Items: - Sibling History Items: No pertinent history Review of Systems Constitutional: Denies: Chills, Fever, Weight Change HEENT: Denies: Head Aches, Sinus Congestion, Sinus Drainage Cardiovascular: Denies: Chest Pain, Palpitations Respiratory: Denies: Cough, Shortness of breath at rest, Sputum production Gastrointestinal: Denies: Abdominal Pain, Nausea, Vomiting Genitourinary: Denies: Dysuria Musculoskeletal: Denies: Joint Pain, Joint Tenderness Skin: Denies: Rash, Wounds Neurological: Denies: Numbness, Tingling, Focal weakness Psychiatric: Denies: Anxiety, Depression Hematologic/ Lymphatic: Denies: Easy Bruising, Easy Bleeding VTE Information - Inpt Only VTE Present on Admission: No - Physical Exam General: Alert, Oriented x3, Cooperative, No apparent distress HEENT: Atraumatic, PERRLA, EOMI, Normocephalic Neck: Supple, No JVD Lungs: Clear to auscultation, Normal air movement, No rhonchi, No wheeze, No rales Cardiovascular: Regular rate, Regular Rhythm, Normal S1, Normal S2, No murmurs Abdomen: Soft, Non Tender, Non-Distended, No Hepato-splenomegaly Extremities: No edema, Capillary Refill Less than 3 Seconds Skin: No rashes, No breakdown Neurological: Facial Droop - on the right, Sensory exam intact to light touch and pain, - - 4/5 strength on the LUE and LLE Psych/Mental Status: Normal Affect, Appropriate Vital Signs Temp Pulse Resp BP Pulse Ox 97.5 F L 63 16 139/67 H 95 06/08/18 16:00 06/08/18 16:00 06/08/18 16:00 06/08/18 16:00 06/08/18 16:00 Oxygen Flow Rate (L/min) 2 Oxygen Delivery Method Room Air Weight: 207 lb 3.752 oz Body Mass Index (BMI) 36.1 Finger Stick Blood Glucose 221 Laboratory Tests Past 24 Hrs 06/08/18 06/08/18 06/08/18 10:29 10:29 10:29 WBC 6.6 RBC 3.76 L Hgb 11.2 L Hct 34.3 L MCV 91.2 MCH 29.8 MCHC 32.7 RDW 12.9 RDW Differential 42.8 Plt Count 167 MPV 10.9 Immature Gran % (Auto) 0.200 Neut % (Auto) 55.2 Lymph % (Auto) 33.2 [place] % (Auto) 8.3 Eos % (Auto) 2.6 Baso % (Auto) 0.5 Absolute Neuts (auto) 3.6 Absolute Lymphs (auto) 2.19 Total Counted Not Reportable PT 14.4 INR 1.1 APTT 31.5 Sodium 141 Potassium 3.7 Chloride 105 Carbon Dioxide 28.0 Anion Gap 8 BUN 31 H Creatinine 1.16 H Estim Creat Clear Calc 36.26 Est GFR (MDRD) Af Amer 59 L Est GFR (MDRD) Non-Af 49 L BUN/Creatinine Ratio 26.7 H Glucose 217 H Calcium 7.8 L Troponin I < 0.015 06/08/18 12:45 WBC 6.7 RBC 4.32 Hgb 12.9 Hct 39.3 MCV 91.0 MCH 29.9 MCHC 32.8 RDW 12.9 RDW Differential 42.8 Plt Count 173 MPV 11.0 Immature Gran % (Auto) 0.000 Neut % (Auto) 57.2 Lymph % (Auto) 32.4 [place] % (Auto) 7.4 Eos % (Auto) 2.7 Baso % (Auto) 0.3 Absolute Neuts (auto) 3.8 Absolute Lymphs (auto) 2.18 Total Counted Not Reportable PT INR APTT Sodium Potassium Chloride Carbon Dioxide Anion Gap BUN Creatinine Estim Creat Clear Calc Est GFR (MDRD) Af Amer Est GFR (MDRD) Non-Af BUN/Creatinine Ratio Glucose Calcium Troponin I POC Glucose 06/08/18 06/08/18 16:26 10:10 POC Glucose 182 H 221 H Assessment/Plan All Active Problems UTI (urinary tract infection) (Acute) Difficulty walking (Acute) mechanical fall (Acute) CVA (cerebral infarction) (Acute) Weakness (Acute) Left hemiparesis (Acute) Confusion (Acute) 1. CVA/ROSA stenosis of 70% - NIH of 1 for right facial droop - Left sided deficits are not new - Resume asa/plavix and statin. She has pain with the statin so cannot increase - Echo with normal EF and grade 2 diastolic dysfunction - No MRI given leads for the bladder stimulator, will repeat CT head in the am - She will need outpatient follow-up for her R ICA stenosis - PT/OT/Speech 2. Overactive bladder - had procedure with interstim placement today - Precluding MRI - Appreciate urology clearance to resume antiplatelets 3. HTN/HLD - c/w lisinopril and statin - stable, lipid panel in the am 4. Dementia - stable - c/w home medications 5. Depression - stable - c/w lexapro 6. DM2 - hold glimepiride and start SSI with accuchecks - BG 217 DVT: SCDs Code Visit OBSV E&M: [id number] Observation care discharge
--- NOTE | 2018-06-08 18:36 | NURSING ---
Reviewed and agreed on all charting with Riana Caldwell RN
[2018-06-08] MEDS: Glucerna Shake 120 ML LIQUID PO (22:02)
[2018-06-08] MEDS: Memantine Hydrochloride 10 MG Tablet PO (22:04)
[2018-06-08] MEDS: Escitalopram Oxalate 20 MG Tablet PO (22:09)
[2018-06-08] MEDS: Insulin Lispro 100 UNIT/ML INSULN.PEN SQ (22:09)
[2018-06-08] MEDS: Atorvastatin Calcium 40 MG Tablet PO (22:09)
[2018-06-08 22:10] LABS: Bedside Glucose 220 mg/dL (70-110)
[2018-06-09] VITALS (14 sets, daily range): BP systolic 147–168; BP diastolic 64–101; PULSE 71–99; RESP 16–20; TEMP 36.9–37.2; O2SAT 92–97; BMI 36.1
--- NOTE | 2018-06-09 05:55 | CT_ITS ---
STUDY: CT BRAIN WITHOUT CONTRAST REASON FOR EXAM: Female, 72 years old. Follow-up CVA. Patient had right facial droop and slurred speech after bladder stimulation by urology yesterday. RADIATION DOSAGE (If Supplied By Facility): CTDIvol = ( 44.99 ) mGy, DLP = ( 796.11 ) mGycm TECHNIQUE: Transaxial CT imaging of the brain was performed without administration of intravenous contrast material. Individualized dose optimization techniques were used for this CT. COMPARISON: 06/08/2018. 11/16/2016. FINDINGS: Normal soft tissue structures. There is hyperostosis frontalis internus. There is mild cerebral atrophy with widening of the extra-axial spaces and ventricular dilatation. There are areas of decreased attenuation within the white matter tracts of the supratentorial brain, consistent with microvascular disease changes. There are old lacunar infarctions in the basal ganglia bilaterally Normal brainstem. There is mild cerebellar atrophy. There is atherosclerotic calcification of the cavernous carotid arteries. There is no intracranial hemorrhage. There are no findings of an acute ischemic infarction. Normal visualized paranasal sinuses. CT/Brain/Head without Contrast IMPRESSION: Chronic involutional changes of the brain. Old basal ganglia lacunar infarctions. No demonstrated acute intracranial process. Electronically Signed: Leonard Galo MD at 6:22 EST , Service support ,
[2018-06-09 06:51] LABS: Anion Gap 8 (5-15); BUN 20 mg/dL (7-18); BUN/Creat Ratio 22.1 RATIO (10-20); Calcium,Total 7.8 mg/dL (8.5-10.1); Chloride 106 mmol/L (98-107); Cholesterol 99 mg/dL (200); Creatinine, Serum 0.91 mg/dL (0.55-1.02); EST Glomerular Filtration Rate 65 mL/min (>60); Est Glom Filt Rate - Afr Amer 78 mL/min (>60); Estimated Creatinine Clearance 46.23 ml/min; Glucose 164 mg/dL (74-106); High Density Lipoprotein 58 mg/dL; Potassium 3.7 mmol/L (3.5-5.1); Sodium Level 142 mmol/L (136-145); Triglycerides 44 mg/dL; Very Low Density Lipoprotein 9 mg/dL (5-40)
--- NOTE | 2018-06-09 06:55 | PCM.PROGNOTE ---
Subjective: Patient is clinically doing well this morning. Is able to communicate normally does not appear to have any drooping facial droops. No slurred speech that he does have a chronic difficulty with sleep a little bit of slur but she is always had this for a long time no new neurological deficits from my exam. Question of a TIA or mini stroke yesterday. And doing some research MRI of the head can be done if following protocols her [employer] I made a copy of this and put in front of the chart. I will leave it up to neurology if they want to reorder the MRI of the head. - Physical Exam General: Alert, Oriented x3, Cooperative HEENT: Atraumatic, PERRLA, EOMI, Normocephalic Neck: Supple, No JVD, Negative Carotid Bruits Lungs: Clear to auscultation, Normal air movement Cardiovascular: Regular rate, No murmurs Abdomen: Bowel Sounds Present, Soft, Non Tender Extremities: No edema, Capillary Refill Less than 3 Seconds Skin: No rashes, No breakdown Musculoskeletal: No Tenderness to Palpation of Joints or Extremities Neurological: Cranial nerves II-XII grossly intact Psych/Mental Status: Normal Affect, Appropriate Vital Signs Temp Pulse Resp BP Pulse Ox 98.5 F 93 20 H 168/88 H 92 06/09/18 04:00 06/09/18 04:00 06/09/18 04:00 06/09/18 04:00 06/09/18 04:05 Oxygen Flow Rate (L/min) 1 Oxygen Delivery Method Room Air Weight: 94 kg Body Mass Index (BMI) 36.1 Finger Stick Blood Glucose 221 Intake and Output for Last 24 Hours 06/07/18 06/08/18 06/09/18 23:59 23:59 23:59 Intake Total 1566 / 1566 548 / 548 Output Total 320 / 320 630 / 630 Balance 1246 / 1246 -82 / -82 Laboratory Tests Past 24 Hrs 06/08/18 06/08/18 06/08/18 10:29 10:29 10:29 WBC 6.6 RBC 3.76 L Hgb 11.2 L Hct 34.3 L MCV 91.2 MCH 29.8 MCHC 32.7 RDW 12.9 RDW Differential 42.8 Plt Count 167 MPV 10.9 Immature Gran % (Auto) 0.200 Neut % (Auto) 55.2 Lymph % (Auto) 33.2 [place] % (Auto) 8.3 Eos % (Auto) 2.6 Baso % (Auto) 0.5 Absolute Neuts (auto) 3.6 Absolute Lymphs (auto) 2.19 Total Counted Not Reportable PT 14.4 INR 1.1 APTT 31.5 Sodium 141 Potassium 3.7 Chloride 105 Carbon Dioxide 28.0 Anion Gap 8 BUN 31 H Creatinine 1.16 H Estim Creat Clear Calc 36.26 Est GFR (MDRD) Af Amer 59 L Est GFR (MDRD) Non-Af 49 L BUN/Creatinine Ratio 26.7 H Glucose 217 H Calcium 7.8 L Troponin I < 0.015 Triglycerides Cholesterol LDL Cholesterol VLDL Cholesterol HDL Cholesterol 06/08/18 06/09/18 12:45 06:15 WBC 6.7 RBC 4.32 Hgb 12.9 Hct 39.3 MCV 91.0 MCH 29.9 MCHC 32.8 RDW 12.9 RDW Differential 42.8 Plt Count 173 MPV 11.0 Immature Gran % (Auto) 0.000 Neut % (Auto) 57.2 Lymph % (Auto) 32.4 [place] % (Auto) 7.4 Eos % (Auto) 2.7 Baso % (Auto) 0.3 Absolute Neuts (auto) 3.8 Absolute Lymphs (auto) 2.18 Total Counted Not Reportable PT INR APTT Sodium 142 Potassium 3.7 Chloride 106 Carbon Dioxide 28.0 Anion Gap 8 BUN 20 H Creatinine 0.91 Estim Creat Clear Calc 46.23 Est GFR (MDRD) Af Amer 78 Est GFR (MDRD) Non-Af 65 BUN/Creatinine Ratio 22.1 H Glucose 164 H Calcium 7.8 L Troponin I Triglycerides 44 Cholesterol 99 LDL Cholesterol 32 VLDL Cholesterol 9 HDL Cholesterol 58 POC Glucose 06/08/18 06/08/18 06/08/18 22:01 16:26 10:10 POC Glucose 220 H 182 H 221 H Medical Necessity - Tobacco Use Smoking Status: Former smoker Tobacco Use: Cigarettes Assessment/Plan All Active Problems UTI (urinary tract infection) (Acute) Difficulty walking (Acute) mechanical fall (Acute) CVA (cerebral infarction) (Acute) Weakness (Acute) Left hemiparesis (Acute) Confusion (Acute) 72-year-old female status post implant of InterStim device she did have her aspirin and Plavix held for the procedure is okay to resume all anticoagulation very minor procedure was done in 2 weeks time I will will remove the device if it does not help with her bladder control or will implant the generator for the device for the control device this is probably can be done without stopping any anticoagulation given the low risk procedure so we can continue with all and anticoagulation and even with the procedure to implant the generator or remove the device stoppage of the anti-correlation will not be necessary. I will continue to follow patient while in-house but she appears clinically stable, I have placed in the front of the chart safety information regarding MRI of the brain that can be done with InterStim device if protocols were followed.
[2018-06-09 07:06] LABS: Bedside Glucose 166 mg/dL (70-110)
[2018-06-09] MEDS: 0.9% Normal Saline 1,000 ML 100 ML IV (07:32)
[2018-06-09] MEDS: Galantamine Hydrobromide 4 MG Tablet 12 MG PO ×2 (09:12→20:47)
[2018-06-09] MEDS: Insulin Lispro 100 UNIT/ML INSULN.PEN SQ ×3 (09:12→16:23)
[2018-06-09] MEDS: Aspirin 81 MG TAB.CHEW PO (09:13)
[2018-06-09] MEDS: Clopidogrel Bisulfate 75 MG Tablet PO (09:13)
[2018-06-09] MEDS: Lisinopril 20 MG Tablet PO (09:13)
[2018-06-09] MEDS: Glucerna Shake 120 ML LIQUID PO ×3 (09:13→17:11)
[2018-06-09] MEDS: Memantine Hydrochloride 10 MG Tablet PO ×2 (09:13→20:47)
--- NOTE | 2018-06-09 09:32 | CASEMGMT ---
Assessment- June 09, 2018 Living situation- Patient's daughter and son in law live with her in a 2 story home with 2 entry steps. Patient is set up on 1 floor PCP: Dr Ware Specialists: Dr Brito Pharmacy: [facility] DME: walker, rollator, and built in shower chair ADL's/IADL's: daughter manages medications, cleans, prepares meals, and drives. Pt bathes herself. Past SNF/rehab: [facility] and [facility] Past HH: Yes. Could not remember agency LW: Yes and on file at [facility] (verified) POA: Yes and on file at [facility] (verified) patient's daughterNanci is her POA Patient normally uses her walker or rollator to get around. She is anticipating she will go home. SAM and RN CM to follow for possible d/c needs Plan: At this time patient wants to go home at d/c. 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
--- NOTE | 2018-06-09 10:12 | PCM.PN.NEU ---
Subjective: feels baseline. - Physical Exam General: Alert, Oriented x3, Cooperative, No apparent distress Neurological: Cranial nerves II-XII grossly intact, Neuro grossly intact Psych/Mental Status: Normal Affect Vital Signs Temp Pulse Resp BP Pulse Ox 37.2 C 73 18 166/80 H 93 06/09/18 08:00 06/09/18 08:00 06/09/18 08:00 06/09/18 08:00 06/09/18 08:00 Oxygen Flow Rate (L/min) 1 Oxygen Delivery Method Room Air Weight: 94 kg Body Mass Index (BMI) 36.1 Finger Stick Blood Glucose 221 Intake and Output for Last 24 Hours 06/07/18 06/08/18 06/09/18 23:59 23:59 23:59 Intake Total 1566 / 1566 548 / 548 Output Total 320 / 320 630 / 630 Balance 1246 / 1246 -82 / -82 Laboratory Tests Past 24 Hrs 06/08/18 06/08/18 06/08/18 10:29 10:29 10:29 WBC 6.6 RBC 3.76 L Hgb 11.2 L Hct 34.3 L MCV 91.2 MCH 29.8 MCHC 32.7 RDW 12.9 RDW Differential 42.8 Plt Count 167 MPV 10.9 Immature Gran % (Auto) 0.200 Neut % (Auto) 55.2 Lymph % (Auto) 33.2 Stephenson % (Auto) 8.3 Eos % (Auto) 2.6 Baso % (Auto) 0.5 Absolute Neuts (auto) 3.6 Absolute Lymphs (auto) 2.19 Total Counted Not Reportable PT 14.4 INR 1.1 APTT 31.5 Sodium 141 Potassium 3.7 Chloride 105 Carbon Dioxide 28.0 Anion Gap 8 BUN 31 H Creatinine 1.16 H Estim Creat Clear Calc 36.26 Est GFR (MDRD) Af Amer 59 L Est GFR (MDRD) Non-Af 49 L BUN/Creatinine Ratio 26.7 H Glucose 217 H Calcium 7.8 L Troponin I < 0.015 Triglycerides Cholesterol LDL Cholesterol VLDL Cholesterol HDL Cholesterol 06/08/18 06/09/18 12:45 06:15 WBC 6.7 RBC 4.32 Hgb 12.9 Hct 39.3 MCV 91.0 MCH 29.9 MCHC 32.8 RDW 12.9 RDW Differential 42.8 Plt Count 173 MPV 11.0 Immature Gran % (Auto) 0.000 Neut % (Auto) 57.2 Lymph % (Auto) 32.4 Stephenson % (Auto) 7.4 Eos % (Auto) 2.7 Baso % (Auto) 0.3 Absolute Neuts (auto) 3.8 Absolute Lymphs (auto) 2.18 Total Counted Not Reportable PT INR APTT Sodium 142 Potassium 3.7 Chloride 106 Carbon Dioxide 28.0 Anion Gap 8 BUN 20 H Creatinine 0.91 Estim Creat Clear Calc 46.23 Est GFR (MDRD) Af Amer 78 Est GFR (MDRD) Non-Af 65 BUN/Creatinine Ratio 22.1 H Glucose 164 H Calcium 7.8 L Troponin I Triglycerides 44 Cholesterol 99 LDL Cholesterol 32 VLDL Cholesterol 9 HDL Cholesterol 58 POC Glucose 06/09/18 06/08/18 06/08/18 06:55 22:01 16:26 POC Glucose 166 H 220 H 182 H 06/08/18 10:10 POC Glucose 221 H Current Medications Generic Name Dose Route Start Last Admin Trade Name Freq PRN Reason Stop Dose Admin Acetaminophen 500 mg 06/08/18 17:44 Tylenol PO Q4H PRN PRN PAIN Aspirin 81 mg 06/09/18 08:00 06/09/18 09:13 Aspirin, Baby PO 81 mg DAILY@0800 MADHAV Administration Atorvastatin Calcium 40 mg 06/08/18 22:00 06/08/18 22:09 Lipitor PO 40 mg QHS MADHAV Administration Clopidogrel Bisulfate 75 mg 06/09/18 10:00 06/09/18 09:13 Plavix PO 75 mg DAILY MADHAV Administration Dextrose 0 gm 06/08/18 18:44 D50w Syringe IV X1 PRN Hypoglycemia Protocol Escitalopram Oxalate 20 mg 06/08/18 22:00 06/08/18 22:09 Lexapro PO 20 mg QHS MADHAV Administration Galantamine Hydrobromide 12 mg 06/09/18 10:00 06/09/18 09:12 Razadyne PO 12 mg BID MADHAV Administration Glucagon 1 mg 06/08/18 18:44 IM .X1 PRN Hypoglycemia Sodium Chloride 500 mls @ 999 mls/hr 06/08/18 10:16 06/08/18 10:50 IV 999 mls/hr .Q31M ONE Administration Sodium Chloride 1,000 mls @ 100 mls/hr 06/08/18 12:08 06/09/18 07:32 IV 100 mls/hr .Q10H MADHAV Administration Insulin Human Lispro 0 unit 06/08/18 22:00 06/09/18 09:12 Humalog Melissapen (Bkc) SQ 1 u ACHS MADHAV Administration Protocol Lisinopril 20 mg 06/09/18 10:00 06/09/18 09:13 Zestril PO 20 mg DAILY MADHAV Administration Magnesium Hydroxide 30 ml 06/08/18 12:08 Milk Of Magnesia PO DAILY PRN Constipation Memantine 10 mg 06/08/18 22:00 06/09/18 09:13 Namenda PO 10 mg BID MADHAV Administration Nutritional Formula (Lactose Free) 120 ml 06/08/18 22:00 06/09/18 09:13 Glucerna Shake PO 120 ml 4X/DAY MADHAV Administration Sodium Chloride 5 - 15 ml 06/08/18 13:30 IV UD PRN SALINE FLUSH ct reviewed, no change, has bilateral [place] echo ef 75% Medical Necessity - Tobacco Use Smoking Status: Former smoker Tobacco Use: Cigarettes Assessment/Plan All Active Problems UTI (urinary tract infection) (Acute) Difficulty walking (Acute) mechanical fall (Acute) CVA (cerebral infarction) (Acute) Weakness (Acute) Left hemiparesis (Acute) Confusion (Acute) cva vs tia, s/p implantation of bladder stimulator, had been off asa/plavix, now restarted stimulator wires placed, no stimulator yet, restart asa/plavix/statin if ok with urology pt/ot/sp home if able
[2018-06-09 11:30] LABS: Bedside Glucose 274 mg/dL (70-110)
--- NOTE | 2018-06-09 11:56 | CASEMGMT ---
PT/OT feel patient should go somewhere for rehab. SAM spoke with patient, her daughter, and daughter in law. SW introduced self and explained therapy said she is an assist of 2 people and feel she needs to go somewhere for rehab. Patient's daughter said she will take her home. She said she has been taking care of her and they have been fine. Discussed home health and all 3 ladies said they did not want it and feel patient will be fine. SAM notified RN. Annie OJEDA MSW
[2018-06-09] MEDS: Magnesium Hydroxide 30 ML UDC PO (12:30)
--- NOTE | 2018-06-09 13:50 | CASEMGMT ---
RN spoke with patient and family and they would be willing to have patient go to rehab here at [facility]. SW checked with Keri and TCU is full. SW checked with Maacrena in the rehab unit and they would take patient as long as insurance approves. She will work on getting the pre-cert. SAM let patient and her daughter Nanci know this information. The plan is home health if insurance denies rehab unit. Plan: [facility] 4th floor rehab pending insurance approval. Annie OJEDA MSW
[2018-06-09 16:21] LABS: Bedside Glucose 258 mg/dL (70-110)
--- NOTE | 2018-06-09 16:35 | PCM.PN.HOSP ---
Subjective: Feels the same as yesterday. Denies weakness, or numbness in her right side. Her left sided deficits remain unchanged Vitals/I&O's: Vital Signs Temp Pulse Resp BP Pulse Ox 98.4 F 99 18 161/86 H 93 06/09/18 14:00 06/09/18 14:56 06/09/18 14:00 06/09/18 14:00 06/09/18 14:00 Oxygen Flow Rate (L/min) 1 Oxygen Delivery Method Room Air Weight: 207 lb 3.752 oz Body Mass Index (BMI) 36.1 Finger Stick Blood Glucose 221 Intake and Output for Last 24 Hours 06/07/18 06/08/18 06/09/18 23:59 23:59 23:59 Intake Total 1566 / 1566 2093 / 2093 Output Total 320 / 320 1430 / 1430 Balance 1246 / 1246 663 / 663 General: Alert, Oriented x3, Cooperative, No apparent distress HEENT: Atraumatic, PERRLA, EOMI, Normocephalic Neck: Supple, No JVD Lungs: Clear to auscultation, Normal air movement, No rhonchi, No wheeze, No rales Cardiovascular: Regular rate, Regular Rhythm, Normal S1, Normal S2, No murmurs Abdomen: Soft, Non Tender, Non-Distended, No Hepato-splenomegaly Extremities: No edema, Capillary Refill Less than 3 Seconds Skin: No rashes, No breakdown Neurological: Facial Droop - on the right, Sensory exam intact to light touch and pain, - - 4/5 strength on the LUE and LLE Psych/Mental Status: Normal Affect, Appropriate Laboratory Results 06/08/18 16:26: POC Glucose 182 H 06/08/18 22:01: POC Glucose 220 H 06/09/18 06:15: Sodium 142, Potassium 3.7, Chloride 106, Carbon Dioxide 28.0, Anion Gap 8, BUN 20 H, Creatinine 0.91, Estim Creat Clear Calc 46.23, Est GFR (MDRD) Af Amer 78, Est GFR (MDRD) Non-Af 65, BUN/Creatinine Ratio 22.1 H, Glucose 164 H, Calcium 7.8 L, Triglycerides 44, Cholesterol 99, LDL Cholesterol 32, VLDL Cholesterol 9, HDL Cholesterol 58 06/09/18 06:55: POC Glucose 166 H 06/09/18 11:23: POC Glucose 274 H 06/09/18 16:15: POC Glucose 258 H Current Medications Acetaminophen (Tylenol) 500 mg PO Q4H PRN PRN PRN Reason: PAIN Aspirin (Aspirin, Baby) 81 mg PO DAILY@0800 [facility] Last Admin: 06/09/18 09:13 Dose: 81 mg Atorvastatin Calcium (Lipitor) 40 mg PO QHS [facility] Last Admin: 06/08/18 22:09 Dose: 40 mg Clopidogrel Bisulfate (Plavix) 75 mg PO DAILY [facility] Last Admin: 06/09/18 09:13 Dose: 75 mg Dextrose (D50w Syringe) 0 gm IV X1 PRN; Protocol PRN Reason: Hypoglycemia Escitalopram Oxalate (Lexapro) 20 mg PO QHS [facility] Last Admin: 06/08/18 22:09 Dose: 20 mg Galantamine Hydrobromide (Razadyne) 12 mg PO BID [facility] Last Admin: 06/09/18 09:12 Dose: 12 mg Glucagon () 1 mg IM .X1 PRN PRN Reason: Hypoglycemia Sodium Chloride () 500 mls @ 999 mls/hr IV .Q31M ONE Last Admin: 06/08/18 10:50 Dose: 999 mls/hr Insulin Human Lispro (Humalog Kwikpen (Bkc)) 0 unit SQ ACHS [facility]; Protocol Last Admin: 06/09/18 16:23 Dose: 3 u Lisinopril (Zestril) 20 mg PO DAILY [facility] Last Admin: 06/09/18 09:13 Dose: 20 mg Magnesium Hydroxide (Milk Of Magnesia) 30 ml PO DAILY PRN PRN Reason: Constipation Last Admin: 06/09/18 12:30 Dose: 30 ml Memantine (Namenda) 10 mg PO BID [facility] Last Admin: 06/09/18 09:13 Dose: 10 mg Nutritional Formula (Lactose Free) (Glucerna Shake) 120 ml PO 4X/DAY [facility] Last Admin: 06/09/18 14:11 Dose: 120 ml Sodium Chloride () 5 - 15 ml IV UD PRN PRN Reason: SALINE FLUSH Medical Necessity - Tobacco Use Smoking Status: Former smoker Tobacco Use: Cigarettes Assessment/Plan All Active Problems UTI (urinary tract infection) (Acute) Difficulty walking (Acute) mechanical fall (Acute) CVA (cerebral infarction) (Acute) Weakness (Acute) Left hemiparesis (Acute) Confusion (Acute) 1. 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 She has pain with the statin so cannot increase - Echo with normal EF and grade 2 diastolic dysfunction - No MRI given leads for the bladder stimulator, will repeat CT head in the am - She will need outpatient follow-up for her R ICA stenosis - PT/OT/Speech - She was a two person assist today, will try to transfer to inpatient rehab either today or tomorrow. 2. Overactive bladder - had procedure with interstim placement yesterday - Precluding MRI - Appreciate urology clearance to resume antiplatelets 3. HTN/HLD - c/w lisinopril and statin - stable, lipid panel in the am 4. Dementia - stable - c/w home medications 5. Depression - stable - c/w lexapro 6. DM2 - hold glimepiride and start SSI with accuchecks - BG 164 DVT: SCDs Code Visit Inpatient E&M: 59691 Subs Hosp L2
--- NOTE | 2018-06-09 16:39 | PN_ITS ---
Subjective: Feels the same as yesterday. Denies weakness, or numbness in her right side. Her left sided deficits remain unchanged Vitals/I&O's: Vital Signs Temp Pulse Resp BP Pulse Ox 98.4 F 99 18 161/86 H 93 06/09/18 14:00 06/09/18 14:56 06/09/18 14:00 06/09/18 14:00 06/09/18 14:00 Oxygen Flow Rate (L/min) 1 Oxygen Delivery Method Room Air Weight: 207 lb 3.752 oz Body Mass Index (BMI) 36.1 Finger Stick Blood Glucose 221 Intake and Output for Last 24 Hours 06/07/18 06/08/18 06/09/18 23:59 23:59 23:59 Intake Total 1566 / 1566 2093 / 2093 Output Total 320 / 320 1430 / 1430 Balance 1246 / 1246 663 / 663 General: Alert, Oriented x3, Cooperative, No apparent distress HEENT: Atraumatic, PERRLA, EOMI, Normocephalic Neck: Supple, No JVD Lungs: Clear to auscultation, Normal air movement, No rhonchi, No wheeze, No rales Cardiovascular: Regular rate, Regular Rhythm, Normal S1, Normal S2, No murmurs Abdomen: Soft, Non Tender, Non-Distended, No Hepato-splenomegaly Extremities: No edema, Capillary Refill Less than 3 Seconds Skin: No rashes, No breakdown Neurological: Facial Droop - on the right, Sensory exam intact to light touch and pain, - - 4/5 strength on the LUE and LLE Psych/Mental Status: Normal Affect, Appropriate Laboratory Results 06/08/18 16:26: POC Glucose 182 H 06/08/18 22:01: POC Glucose 220 H 06/09/18 06:15: Sodium 142, Potassium 3.7, Chloride 106, Carbon Dioxide 28.0, Anion Gap 8, BUN 20 H, Creatinine 0.91, Estim Creat Clear Calc 46.23, Est GFR (MDRD) Af Amer 78, Est GFR (MDRD) Non-Af 65, BUN/Creatinine Ratio 22.1 H, Glucose 164 H, Calcium 7.8 L, Triglycerides 44, Cholesterol 99, LDL Cholesterol 32, VLDL Cholesterol 9, HDL Cholesterol 58 06/09/18 06:55: POC Glucose 166 H 06/09/18 11:23: POC Glucose 274 H 06/09/18 16:15: POC Glucose 258 H Current Medications Acetaminophen (Tylenol) 500 mg PO Q4H PRN PRN PRN Reason: PAIN Aspirin (Aspirin, Baby) 81 mg PO DAILY@0800 [facility] Last Admin: 06/09/18 09:13 Dose: 81 mg Atorvastatin Calcium (Lipitor) 40 mg PO QHS [facility] Last Admin: 06/08/18 22:09 Dose: 40 mg Clopidogrel Bisulfate (Plavix) 75 mg PO DAILY [facility] Last Admin: 06/09/18 09:13 Dose: 75 mg Dextrose (D50w Syringe) 0 gm IV X1 PRN; Protocol PRN Reason: Hypoglycemia Escitalopram Oxalate (Lexapro) 20 mg PO QHS [facility] Last Admin: 06/08/18 22:09 Dose: 20 mg Galantamine Hydrobromide (Razadyne) 12 mg PO BID [facility] Last Admin: 06/09/18 09:12 Dose: 12 mg Glucagon () 1 mg IM .X1 PRN PRN Reason: Hypoglycemia Sodium Chloride () 500 mls @ 999 mls/hr IV .Q31M ONE Last Admin: 06/08/18 10:50 Dose: 999 mls/hr Insulin Human Lispro (Humalog Kwikpen (Bkc)) 0 unit SQ ACHS [facility]; Protocol Last Admin: 06/09/18 16:23 Dose: 3 u Lisinopril (Zestril) 20 mg PO DAILY [facility] Last Admin: 06/09/18 09:13 Dose: 20 mg Magnesium Hydroxide (Milk Of Magnesia) 30 ml PO DAILY PRN PRN Reason: Constipation Last Admin: 06/09/18 12:30 Dose: 30 ml Memantine (Namenda) 10 mg PO BID [facility] Last Admin: 06/09/18 09:13 Dose: 10 mg Nutritional Formula (Lactose Free) (Glucerna Shake) 120 ml PO 4X/DAY [facility] Last Admin: 06/09/18 14:11 Dose: 120 ml Sodium Chloride () 5 - 15 ml IV UD PRN PRN Reason: SALINE FLUSH Medical Necessity - Tobacco Use Smoking Status: Former smoker Tobacco Use: Cigarettes Assessment/Plan All Active Problems UTI (urinary tract infection) (Acute) Difficulty walking (Acute) mechanical fall (Acute) CVA (cerebral infarction) (Acute) Weakness (Acute) Left hemiparesis (Acute) Confusion (Acute) 1. 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 She has pain with the statin so cannot increase - Echo with normal EF and grade 2 diastolic dysfunction - No MRI given leads for the bladder stimulator, will repeat CT head in the am - She will need outpatient follow-up for her R ICA stenosis - PT/OT/Speech - She was a two person assist today, will try to transfer to inpatient rehab either today or tomorrow. 2. Overactive bladder - had procedure with interstim placement yesterday - Precluding MRI - Appreciate urology clearance to resume antiplatelets 3. HTN/HLD - c/w lisinopril and statin - stable, lipid panel in the am 4. Dementia - stable - c/w home medications 5. Depression - stable - c/w lexapro 6. DM2 - hold glimepiride and start SSI with accuchecks - BG 164 DVT: SCDs Code Visit Inpatient E&M: 65332 Subs Hosp L2
--- NOTE | 2018-06-09 17:24 | EKG12_ITS ---
Test Reason : Blood Pressure : / mmHG Vent. Rate : 095 BPM Atrial Rate : 095 BPM P-R Int : 216 ms QRS Dur : 134 ms QT Int : 402 ms P-R-T Axes : 055 -71 012 degrees QTc Int : 505 ms Sinus rhythm with 1st degree A-V block Left axis deviation Right bundle branch block Abnormal ECG Confirmed by JUJU BERG, FIDENCIO ([id number]), publication editor SHAARA TIPTON ([id number]) on 06/14/2018 3:48:29 PM Referred By: ELROY Confirmed By:FIDENCIO MATUTE MD
--- NOTE | 2018-06-09 18:57 | NURSING ---
Reviewed and agreed on all charting with Riana Caldwell RN
[2018-06-09] MEDS: Atorvastatin Calcium 40 MG Tablet PO (20:47)
[2018-06-09] MEDS: Escitalopram Oxalate 20 MG Tablet PO (20:47)
[2018-06-09 22:11] LABS: Bedside Glucose 272 mg/dL (70-110)
[2018-06-09] MEDS: Zolpidem Tartrate 5 MG Tablet PO (22:30)
[2018-06-10] VITALS (9 sets, daily range): BP systolic 144–164; BP diastolic 74–101; PULSE 73–105; RESP 16–18; TEMP 36.7–36.9; O2SAT 92–94; BMI 36.1
[2018-06-10 07:05] LABS: Bedside Glucose 207 mg/dL (70-110)
[2018-06-10] MEDS: Ondansetron 4 MG/2 ML Vial IV (09:16)
[2018-06-10] MEDS: 0.9% NaCl Peripheral Flush Adult/Peds IV (09:17)
[2018-06-10] MEDS: Lisinopril 20 MG Tablet PO (10:01)
[2018-06-10] MEDS: Clopidogrel Bisulfate 75 MG Tablet PO (10:01)
[2018-06-10] MEDS: Memantine Hydrochloride 10 MG Tablet PO (10:01)
[2018-06-10] MEDS: Aspirin 81 MG TAB.CHEW PO (10:01)
[2018-06-10] MEDS: Galantamine Hydrobromide 4 MG Tablet 12 MG PO (10:01)
[2018-06-10] MEDS: Polyethylene Glycol 3350 17 GM PACKET PO (10:11)
[2018-06-10] MEDS: Insulin Lispro 100 UNIT/ML INSULN.PEN SQ ×2 (12:04→16:43)
[2018-06-10 12:10] LABS: Bedside Glucose 404 mg/dL (70-110)
--- NOTE | 2018-06-10 12:30 | CASEMGMT ---
PEDRO CHAPPELL NOTE: Reviewed LOBO form with pt and pt signed form. Copy made and placed on chart. Pt given original. Mariah PATRICK RN CM
--- NOTE | 2018-06-10 12:33 | DCINST_ITS ---
You will use the following diet at home:: Calorie/Carbohydrate Controlled (specify 1200, 1400, etc), Cardiac Your food should be the consistency of: Regular Your liquids should be the consistency of: Regular/Thin Discharge Activity: No Restrictions Call your doctor if you observe: Numbness or Tingling, Shortness of breath, Dizziness, Fainting spells, Chest pain, Increased palpitations (irregular heartbeat) Allergies/Adverse Reactions: Allergies promethazine HCl [From Phenergan] Adverse Reaction (Verified 06/08/18 10:32) Nausea Medications to take at Discharge Aspirin [Aspirin, Baby] 81 mg PO DAILY@0800 #30 tab.chew 03/09/16 Atorvastatin Calcium [Lipitor] 40 mg PO QHS #30 tablet 03/09/16 Clopidogrel Bisulfate [Plavix] 75 mg PO DAILY #30 tablet 03/09/16 Glimepiride [Amaryl] 1 mg PO DAILY #30 tablet 03/09/16 Lisinopril [Zestril] 20 mg PO DAILY #30 tablet 03/09/16 Escitalopram Oxalate [Lexapro] 20 mg PO QHS 06/14/17 Gabapentin [Neurontin] 200 mg PO TIDCM 06/14/17 Baclofen 20 mg PO TID 06/01/18 Galantamine HBr [Galantamine ER] 24 mg PO DAILY 06/01/18 Acetaminophen [Tylenol] 500 mg PO Q4H PRN PRN #20 tablet 06/08/18 Memantine HCl 10 mg PO BID 06/08/18 Primary Care Physician: Bakari Ware Chi, MD [Primary Care Provider] - Please follow up with your Primary Care Physician in: IN 3-5 DAYS Test Results: Test results from this visit will be discussed in further detail at your follow- up appointment, if applicable.
--- NOTE | 2018-06-10 12:33 | PCM.DC.SUM ---
Discharge Date and Diagnosis Date of Admission: 06/08/18 Date of Discharge: 06/10/18 - Secondary Discharge Diagnosis Chronic Problems Type 2 diabetes mellitus (Chronic) Hypertension (Chronic) Diabetic neuropathy (Chronic) Depression (Chronic) Physical debility (Chronic) Obesity (Chronic) Tobacco abuse (Chronic) Stroke (Chronic) Hospital Course and Treatment Imaging Results: CT Brain: IMPRESSION: Chronic involutional changes of the brain. CTA Neck: IMPRESSION: Calcific plaque at the origin of the right internal carotid artery causing greater than 70% luminal narrowing. CTA Brain: IMPRESSION: Normal [place] without a demonstrated aneurysm or hemodynamically significant stenosis. Operations: None Procedures: 2-D Echocardiogram - Interpretation Summary Stage 2 diastolic dysfunction. Trivial mitral valve insufficiency. Mild (1+) tricuspid valve insufficiency. Right ventricular systolic pressure estimated to be 38 mmHg. The estimated ejection fraction is 75 %. Compared to echo report dated 11/16/2016, no appreciable changes noted. Summary of Care Provided: Per HPI: The patient is a 72 year old F with a PMH as below who presents to the ER with a right facial droop and slurred speech after a bladder stimulation procedure by urology today. She was last known normal at around 6 am for the procedure and close to 10 am her family noticed that in recovery after the procedure she had a rightsided facial droop and slurred speech. She had had a stroke about 7 years ago with left sided is symptoms and has residual left sided weakness. In the ER she had an NIH of 3 for the facial droop, dysarthria and RUE numbness. She had a CT head which was negative and CTA of the head and neck with a greater than 70% stenosis in the ROSA. Vital Signs - 24 hr Temp Pulse Resp BP Pulse Ox 06/10/18 10:55 105 H 06/10/18 10:10 98.0 F 83 16 154/74 H 94 06/10/18 06:56 95 06/10/18 06:22 98.1 F 95 18 164/101 H 92 06/10/18 03:01 75 06/10/18 02:35 93 06/10/18 02:32 98.4 F 73 16 160/89 H 93 06/09/18 23:00 79 06/09/18 20:53 92 06/09/18 20:45 98.5 F 83 18 147/90 H 92 06/09/18 19:00 80 06/09/18 17:00 98.5 F 97 18 163/101 H 94 06/09/18 14:56 99 06/09/18 14:00 98.4 F 99 18 161/86 H 93 General: Alert, Oriented x3, Cooperative, No apparent distress HEENT: Atraumatic, PERRLA, EOMI, Normocephalic Neck: Supple, No JVD Lungs: Clear to auscultation, Normal air movement, No rhonchi, No wheeze, No rales Cardiovascular: Regular rate, Regular Rhythm, Normal S1, Normal S2, No murmurs Abdomen: Soft, Non Tender, Non-Distended, No Hepato-splenomegaly Extremities: No edema, Capillary Refill Less than 3 Seconds Skin: No rashes, No breakdown Neurological: Facial Droop - on the right, Sensory exam intact to light touch and pain, - - 4/5 strength on the LUE and LLE Psych/Mental Status: Normal Affect, Appropriate Hospital Course: 1. TIA vs CVA - She presented after a procedure for a bladder stimulator implantation with a right facial droop. She continues to have left sided deficits from a previous stroke however she did not have any other right sided deficits. Unfortunately the bladder stimulator leads that had been implanted precluded her from an MRI. She did not do well with therapy and was requiring a 2 person assist and therefore she was discharged to rehab. There were no adjustments to her medical management since she was already on asa, plavix and a statin. Of note her R ICA was found to have a 70% stenosis and may need further work-up as an outpatient. 2. DM2/BIBIANA - On admission it did appear she had an BIBIANA based on her previous creatinine and her admission creatinine of 1.16. This has resolved with fluid resuscitation. Her DM was controlled on a SSI while an inpatient but she can be resumed on her home medications on discharge. 3. Her other medical diagnoses were evaluated and her home medications were continued where appropriate. - Physical Exam Vital Signs Temp Pulse Resp BP Pulse Ox 98.0 F 105 H 16 154/74 H 94 06/10/18 10:10 06/10/18 10:55 06/10/18 10:10 06/10/18 10:10 06/10/18 10:10 Oxygen Flow Rate (L/min) 1 Oxygen Delivery Method Room Air Weight: 207 lb 3.752 oz Body Mass Index (BMI) 36.1 Finger Stick Blood Glucose 221 Intake and Output for Last 24 Hours 06/08/18 06/09/18 06/10/18 23:59 23:59 23:59 Intake Total 1566 / 1566 3624 / 3624 560 / 560 Output Total 320 / 320 4030 / 4030 1500 / 1500 Balance 1246 / 1246 -406 / -406 -940 / -940 POC Glucose 06/10/18 06/10/18 06/09/18 12:02 06:59 20:50 POC Glucose 404 H 207 H 272 H 06/09/18 16:15 POC Glucose 258 H Discharge Activity: No Restrictions Call your doctor if you observe: Numbness or Tingling, Shortness of breath, Dizziness, Fainting spells, Chest pain, Increased palpitations (irregular heartbeat) Home Medications: Medications to take at Discharge Aspirin [Aspirin, Baby] 81 mg PO DAILY@0800 #30 tab.chew 03/09/16 Atorvastatin Calcium [Lipitor] 40 mg PO QHS #30 tablet 03/09/16 Clopidogrel Bisulfate [Plavix] 75 mg PO DAILY #30 tablet 03/09/16 Glimepiride [Amaryl] 1 mg PO DAILY #30 tablet 03/09/16 Lisinopril [Zestril] 20 mg PO DAILY #30 tablet 03/09/16 Escitalopram Oxalate [Lexapro] 20 mg PO QHS 06/14/17 Gabapentin [Neurontin] 200 mg PO TIDCM 06/14/17 Baclofen 20 mg PO TID 06/01/18 Galantamine HBr [Galantamine ER] 24 mg PO DAILY 06/01/18 Acetaminophen [Tylenol] 500 mg PO Q4H PRN PRN #20 tablet 06/08/18 Memantine HCl 10 mg PO BID 06/08/18 Primary Care Physician: Bakari Ware Chi, MD [Primary Care Provider] - Please follow up with your Primary Care Physician in: IN 3-5 DAYS Disposition: Inpt Rehab Unit/Facility Minutes spent on discharge:: 35 Patient Condition:: Good Medical Necessity - Tobacco Use Smoking Status: Former smoker Tobacco Use: Cigarettes Meaningful Use Info Meaningful Use Diagnoses (Choose all that apply): Ischemic CVA - CVA Therapy Assessed for PT,OT and/or ST?: Yes - Ischemic Stroke Antithrombotic order at d/c?: Yes Dx of Atrial fib/flutter?: No Statins at discharge?: Yes Primary Dx Acute Ischemic CVA?: Yes IV tPA ordered during stay?: No Reason IV t-PA not ordered: Treatment not Indicated Code Visit OBSV E&M: 10516 Observation care discharge
--- NOTE | 2018-06-10 16:14 | CASEMGMT ---
Received call from Macarena in the rehab unit and patient was approved to go to the rehab unit. SAM notified patient's daughter, patient, and charge master analyst. SAM also let Peyton with [facility] know. Plan: [facility] 4th floor rehab unit Annie BARRAZA
[2018-06-10 16:55] LABS: Bedside Glucose 284 mg/dL (70-110)
--- OUTSIDE RECORDS SUMMARY | 2018-08-03 18:39 | XMS RPT_ITS ---
:1945 Author Organization [place] Support Name Relationship Address Phone SAMIR DARON Unavailable [address] + [place] [address] ANGELA, SELVIN Unavailable Unavailable + [place] [address] R Unavailable Unavailable Unavailable SAMIR, DARON Unavailable [address] + [place] [address] ANGELA, SELVIN Unavailable Unavailable + [place] [address] R Unavailable Unavailable Unavailable SAMIR, DARON Unavailable [address] + [place] [address] ANGELA, SELVIN Unavailable Unavailable + [place] [address] R Unavailable Unavailable Unavailable SAMIR, DARON Unavailable [address] + [place] [address] ANGELA, SELVIN Unavailable Unavailable + [place] [address] R Unavailable Unavailable Unavailable SAMIR, DARON Unavailable [address] + [place] [address] ANGELA, SELVIN Unavailable Unavailable + [place] [address] R Unavailable Unavailable Unavailable SAMIR, DARON Unavailable [address] + [place] [address] ANGELA, SELVIN Unavailable Unavailable + [place] [address] R Unavailable Unavailable Unavailable SAMIR, DARON Unavailable [address] + [place] [address] ANGELA, SELVIN Unavailable Unavailable + [place] [address] R Unavailable Unavailable Unavailable SAMIR, DARON Unavailable [address] + [place] [address] ANGELA, SELVIN Unavailable Unavailable + [place] [address] R Unavailable Unavailable Unavailable SAMIR, DARON Unavailable [address] + [place] [address] ANGELA, SELVIN Unavailable Unavailable + [place] [address] R Unavailable Unavailable Unavailable SAMIR, DARON Unavailable [address] + [place] [address] ANGELA, SELVIN Unavailable Unavailable + [place] [address] R Unavailable Unavailable Unavailable SAMIR, DARON Unavailable [address] + [place] [address] ANGELA, SELVIN Unavailable Unavailable + [place] [address] R Unavailable Unavailable Unavailable SAMIR, DARON Unavailable [address] + [place] [address] ANGELA, SELVIN Unavailable Unavailable + [place] [address] R Unavailable Unavailable Unavailable SAMIR, DARON Unavailable [address] + [place] [address] ANGELA, SELVIN Unavailable Unavailable + [place] [address] R Unavailable Unavailable Unavailable SAMIR, DARON Unavailable [address] + [place] [address] ANGELA, SELVIN Unavailable Unavailable + [place] [address] R Unavailable Unavailable Unavailable SAMIR, DARON Unavailable [address] + [place] [address] ANGELA, SELVIN Unavailable Unavailable + [place] [address] R Unavailable Unavailable Unavailable SAMIR, DARON Unavailable [address] + [place] [address] ANGELA, SELVIN Unavailable Unavailable + [place] [address] R Unavailable Unavailable Unavailable SAMIR, DARON Unavailable [address] + [place] [address] ANGELA, SELVIN Unavailable Unavailable + [place] [address] R Unavailable Unavailable Unavailable SAMIR, DARON Unavailable [address] [phone] [place] [address] ANGELA, SELVIN Unavailable Unavailable + [place] [address] R Unavailable Unavailable Unavailable SAMIR, DARON Unavailable [address] [phone] [place] [address] ANGELA, SELVIN Unavailable Unavailable + [place] [address] R Unavailable Unavailable Unavailable SAMIR, DARON Unavailable [address] [phone] [place] [address] ANGELA, SELVIN Unavailable Unavailable + R Unavailable Unavailable Unavailable SAMIR, DARON Unavailable [address] [phone] [place] [address] ANGELA, SELVIN Unavailable Unavailable + R Unavailable Unavailable Unavailable SAMIR, DARON Unavailable [address] [phone] [place] [address] ANGELA, SELVIN Unavailable . + ., [place] . R Unavailable Unavailable Unavailable SAMIR, DARON Unavailable [address] [phone] [place] [address] ANGELA, SELVIN Unavailable . + ., [place] . R Unavailable Unavailable Unavailable SAMIR, DARON Unavailable [address] [phone] [place] [address] ANGELA, SELVIN Unavailable . + ., [place] . R Unavailable Unavailable Unavailable Care Team Providers Name Role Phone Michael Wing Attending Unavailable Rolando Avila Referring Unavailable Talampas, Sophie Attending Unavailable Talampas, Sophie Primary Care Unavailable Talampas, Sophie Attending Unavailable Talampas, Sophie Primary Care Unavailable Talampas, Sophie Referring Unavailable Sarah Ladd Attending Unavailable Talampas, Sophie Primary Care Unavailable Markos, Oakes FACILITIES MAINTENANCE SUPERVISOR-C Attending Unavailable Markos, Becky FACILITIES MAINTENANCE SUPERVISOR-C Referring Unavailable Chaz, Bakari Chi Primary Care [...] Admitting Unavailable Kotsonis, Rolando F Attending Unavailable Chza, Bakari Chi Primary Care Unavailable Llamas, Musa [...] Unknown N39.0 - Urinary Connor Brito Active [place] tract infection, [place] Community site not specified Hospital / N39.0(ICD-10) Repository 04/14/2018 Unknown E11.9 - Type 2 Chaz, Bakari Chi Active [place] diabetes mellitus Community without Hospital complications / Repository E11.9(ICD-10) 04/14/2018 Unknown E55.9 - Vitamin D Chaz, Bakari Chi Active [place] deficiency, Community unspecified / Hospital E55.9(ICD-10) Repository 04/14/2018 Unknown M25.579 - Pain in Chaz, Bakari Chi Active [place] unspecified ankle Community and joints of Hospital unspecified foot / Repository M25.579(ICD-10) 04/14/2018 Unknown M79.609 - Pain in Chaz, Bakari Chi Active [place] unspecified limb / Community M79.609(ICD-10) Hospital Repository 09/16/2017 Unknown E87.6 - Hypokalemia Chaz, Bakari Chi Active [place] / E87.6(ICD-10) [facility] Repository 08/18/2017 Unknown R20.0 - Anesthesia Becky Burrows Active [place] of skin / FACILITIES MAINTENANCE SUPERVISOR-C Community R20.0(ICD-10) Hospital Repository 08/18/2017 Unknown R25.2 - Cramp and MarkosBecky edouard Active [place] spasm / FACILITIES MAINTENANCE SUPERVISOR-C Community R25.2(ICD-10) Hospital Repository 08/18/2017 Unknown Z86.73 - Personal MarkosBecky edouard Active [place] history of FACILITIES MAINTENANCE SUPERVISOR-C Community transient ischemic Hospital attack (TIA), and Repository cerebral infarction without residual deficits / Z86.73(ICD-10) 07/28/2017 Unknown F11.20 - Opioid Basali, Ayman Active [facility] dependence, Community uncomplicated / Hospital F11.20(ICD-10) Repository PROCEDURES PROCEDURES No Procedure Records FoundRESULTS RESULTS HISTORY AND PHYSICAL Observed: 06/28/2018 Status: F Source: [place] EXAM 1:04 PM [facility] REPOSITORY [facility] Medical Records Department [address] [place] [address] History and Physical 06/11/182023 MR#: [id number] Acct: [id number] Name: YADI WESTFALL Rep #: [id number] : 1945 72 From: Abida Collins MD PCP: Chaz BERG,Bakari Correa Status: DIS IN Y Location: [id number] Problem List (1) CVA (cerebral infarction) Status: [...] left leg weakness, Dementia, depression admitted to [facility] IP with debility s/p TIA following bladder stimulator placement, for > 3 hrs therapy daily, with the aim of returning back home at or near her prior level of functional independence. Patient was admitted to [facility] with right facial droop and slurred speech [...] symptoms but does not take any medications PHYSICIAN OFFICE SPECIALIST History: No pertinent PHYSICIAN OFFICE SPECIALIST history Lives: With Family Smoking Status: Former [...] left leg weakness, Dementia, depression admitted to [facility] IP with debility s/p TIA following bladder stimulator placement, for > 3 hrs therapy daily, with the aim of returning back home at or near her prior level of functional independence. Patient was admitted to [facility] with right facial droop and slurred speech [...] recommendations Code Visit Inpatient E AND M: 90852 Init Hosp L3 06/28/18 1304 <Electronically signed by Abida Collins MD> Date Abida Collins MD Cosigner Signature: Date (if applicable) CC: Dexter Collins MD; Bakari Ware MD Signed OPERATIVE REPORT Observed: 06/22/2018 Status: F Source: [place] 7:45 AM [facility] REPOSITORY [facility] Medical Records Department [address] [place] [address] Operative Report 06/22/18 0742 MR#: [id number] Acct: [id number] Name: YADI WESTFALL Rep #: [id number] : 1945 72 From: Connor Brito MD PCP: Bakari Ware MD, Chi Status: [facility] [place] Location: [place] [address] Report of Operation Date of Procedure: 06/22/18 [...] DISCHARGE INSTRUCTION Observed: 06/22/2018 Status: F Source: [place] 7:21 AM [facility] REPOSITORY [facility] Medical Records Department [address] [place] [address] Instructions for Home/Discharge Instructions 06/22/18719 MR#: [id number] Acct: [id number] Name: YADI WESTFALL Rep #: [id number] : 1945 72 From: Connor Brito MD [...] PO QHS tablet 06/20/18 Primary Care Physician: Bakari Ware Chi, MD [...] NURSING PROTOCOL Performed By: #### L501.080 #### [facility] Point [facility] [address] [facility] [place] [address] BEDSIDE GLUCOSE Collected: 06/21/2018 Status: F Source: [place] 11:37 AM [facility] REPOSITORY TYPE CODE TESTS RESULT OUT OF REFERENCE UNITS RANGE LAB L501.080 70-110 mg/dL High BEDSIDE GLU 233 Result Comment: MANAGEMENT OF PATIENT CARE PER NURSING PROTOCOL Performed By: #### L501.080 #### [facility] Point of Care [address] [facility] [place] [address] DISCHARGE INSTRUCTION Observed: 06/21/2018 Status: F Source: [place] 11:35 AM [facility] REPOSITORY [facility] Medical Records Department [address] [place] [address] [place] [address] Instructions for Home/Discharge Instructions 06/21/18 1007 MR#: [id number] Acct: [id number] Name: YADI WESTFALL Rep #: [id number] : 1945 72 From: Becky Burrows FACILITIES MAINTENANCE SUPERVISOR-C PCP: Chaz MD,Bakari Chi Status: ADM IN [...] DISCHARGE SUMMARY Observed: 06/21/2018 Status: F Source: [place] 11:34 AM [facility] REPOSITORY [facility] Medical Records Department [address] [place] [address] Discharge Summary 06/21/18 0848 MR#: [id number] Acct: [id number] Name: YADI WESTFALL Rep #: [id number] : 1945 72 From: Becky HALE PCP: Bakari Ware MD, Chi Status: ADM IN Location: [place] [address] Rehab Discharge Summary DATE OF ADMISSION: 06/10/18 [...] Amlodipine Besylate (Norvasc) 10 mg PO DAILY [facility] Last Admin: 06/21/18 08:36 Dose: 10 mg Aspirin (Aspirin, Baby) 81 mg PO DAILY@0800 [facility] Last Admin: 06/21/18 08:36 Dose: 81 mg Atorvastatin Calcium (Lipitor) 40 mg PO QHS [facility] Last Admin: 06/20/18 20:43 Dose: 40 mg Baclofen (Lioresal) 20 mg PO TID [facility] Last Admin: 06/21/18 05:40 Dose: 20 mg Bisacodyl (Dulcolax) 10 mg RECTAL .PRN X 1 PRN PRN Reason: Constipation Clopidogrel Bisulfate (Plavix) 75 mg PO DAILY [facility] Last Admin: 06/21/18 08:36 Dose: 75 mg Enoxaparin Sodium (Lovenox) 40 mg SC DAILY@0600 [facility] Last Admin: 06/21/18 08:44 Dose: Not Given Escitalopram Oxalate (Lexapro) 20 mg PO QHS [facility] Last Admin: 06/20/18 20:42 Dose: 20 mg Gabapentin (Neurontin) 200 mg PO TIDCM [facility] Last Admin: 06/21/18 08:36 Dose: 200 mg Galantamine Hydrobromide (Razadyne) 12 mg PO BID [facility] Last Admin: 06/21/18 08:35 Dose: 12 mg Glimepiride (Amaryl) 2 mg PO DAILY@0800 [facility] Last Admin: 06/21/18 08:36 Dose: 2 mg Insulin Human Lispro (Humalog Kwikpen (Bkc)) 0 unit SC ACHS [facility]; Protocol Last Admin: 06/21/18 08:36 Dose: 1 u Lisinopril (Zestril) 20 mg PO DAILY [facility] Last Admin: 06/21/18 08:36 Dose: 20 mg Magnesium Hydroxide (Milk Of Magnesia) 30 ml PO .PRN X 1 PRN PRN Reason: Constipation Melatonin (Melatonin) 3 mg PO QHS [facility] Last Admin: 06/20/18 20:44 Dose: 3 mg Memantine (Namenda) 10 mg PO BID [facility] Last Admin: 06/21/18 08:36 Dose: 10 mg Polyethylene Glycol (Miralax) 17 gm PO BID [facility] Last Admin: 06/21/18 05:39 Dose: Not Given Senna/Docusate Sodium (Senokot-S, Courtney-Colace) 2 tablet PO BID [facility] Last Admin: 06/21/18 05:40 Dose: Not Given [...] left leg weakness, Dementia, depression admitted to [facility] IP with debility s/p TIA following bladder stimulator placement, for > 3 hrs therapy daily, with the aim of returning back home at or near her prior level of functional independence. Patient was admitted to [facility] with right facial droop and slurred speech [...] 06/21/18 1134 <Electronically signed by Becky Burrows FACILITIES MAINTENANCE SUPERVISOR-C> Date Becky Burrows FACILITIES MAINTENANCE SUPERVISOR-C 06/21/18 1025<Electronically signed by Musa Llamas MD> Cosigner Signature (if applicable): Date Musa Llamas MD CC: FACILITIES MAINTENANCE SUPERVISOR Becky Burrows; Musa Llamas MD; Bakari Ware MD Signed BEDSIDE GLUCOSE Collected: 06/21/2018 Status: F Source: [place] 6:27 AM [facility] REPOSITORY TYPE CODE TESTS RESULT OUT OF REFERENCE UNITS RANGE LAB L501.080 70-110 mg/dL High BEDSIDE GLU 155 Result Comment: MANAGEMENT OF PATIENT CARE PER NURSING PROTOCOL Performed By: #### L501.080 #### [facility] Point of Care [address] [place] [address] BEDSIDE GLUCOSE Collected: 06/20/2018 Status: F Source: [place] 9:20 PM [facility] REPOSITORY TYPE CODE TESTS RESULT OUT OF REFERENCE UNITS RANGE LAB L501.080 70-110 mg/dL High BEDSIDE GLU 263 Result Comment: MANAGEMENT OF PATIENT CARE PER NURSING PROTOCOL Performed By: #### L501.080 #### [facility] Point of Care [address] [place] [address] BEDSIDE GLUCOSE Collected: 06/20/2018 Status: F Source: [place] 4:46 PM [facility] REPOSITORY TYPE CODE TESTS RESULT OUT OF REFERENCE UNITS RANGE LAB L501.080 70-110 mg/dL High BEDSIDE GLU 192 Result Comment: MANAGEMENT OF PATIENT CARE PER NURSING PROTOCOL Performed By: #### L501.080 #### [facility] Point of Care [address] [place] [address] BEDSIDE GLUCOSE Collected: 06/20/2018 Status: F Source: [place] 11:33 AM [facility] REPOSITORY TYPE CODE TESTS RESULT OUT OF REFERENCE UNITS RANGE LAB L501.080 70-110 mg/dL High BEDSIDE GLU 270 Result Comment: MANAGEMENT OF PATIENT CARE PER NURSING PROTOCOL Performed By: #### L501.080 #### [facility] Point of Care [address] [place] [address] BEDSIDE GLUCOSE Collected: 06/20/2018 Status: F Source: [place] 6:40 AM [facility] REPOSITORY TYPE CODE TESTS RESULT OUT OF REFERENCE UNITS RANGE LAB L501.080 70-110 mg/dL High BEDSIDE GLU 183 Result Comment: MANAGEMENT OF PATIENT CARE PER NURSING PROTOCOL Performed By: #### L501.080 #### [facility] Point of Care [address] [place] [address] BEDSIDE GLUCOSE Collected: 06/19/2018 Status: F Source: [place] 10:46 PM [facility] REPOSITORY TYPE CODE TESTS RESULT OUT OF REFERENCE UNITS RANGE LAB L501.080 70-110 mg/dL High BEDSIDE GLU 300 Result Comment: MANAGEMENT OF PATIENT CARE PER NURSING PROTOCOL Performed By: #### L501.080 #### [facility] Point of Care [address] [place] [address] BEDSIDE GLUCOSE Collected: 06/19/2018 Status: F Source: [place] 4:24 PM [facility] REPOSITORY TYPE CODE TESTS RESULT OUT OF REFERENCE UNITS RANGE LAB L501.080 70-110 mg/dL High BEDSIDE GLU 266 Result Comment: MANAGEMENT OF PATIENT CARE PER NURSING PROTOCOL Performed By: #### L501.080 #### [facility] Point of Care [address] [place] [address] BEDSIDE GLUCOSE Collected: 06/19/2018 Status: F Source: [place] 11:04 AM [facility] REPOSITORY TYPE CODE TESTS RESULT OUT OF REFERENCE UNITS RANGE LAB L501.080 70-110 mg/dL High BEDSIDE GLU 300 Result Comment: MANAGEMENT OF PATIENT CARE PER NURSING PROTOCOL Performed By: #### L501.080 #### [facility] Point of Care [address] [place] [address] BEDSIDE GLUCOSE Collected: 06/19/2018 Status: F Source: [place] 6:39 AM [facility] REPOSITORY TYPE CODE TESTS RESULT OUT OF REFERENCE UNITS RANGE LAB L501.080 70-110 mg/dL High BEDSIDE GLU 205 Result Comment: MANAGEMENT OF PATIENT CARE PER NURSING PROTOCOL Performed By: #### L501.080 #### [facility] Point of Care [address] [place] [address] BEDSIDE GLUCOSE Collected: 06/18/2018 Status: F Source: [place] 8:53 PM [facility] REPOSITORY TYPE CODE TESTS RESULT OUT OF REFERENCE UNITS RANGE LAB L501.080 70-110 mg/dL High BEDSIDE GLU 209 Result Comment: MANAGEMENT OF PATIENT CARE PER NURSING PROTOCOL Performed By: #### L501.080 #### [facility] Point of Care [address] [place] [address] BEDSIDE GLUCOSE Collected: 06/18/2018 Status: F Source: [place] 4:08 PM [facility] REPOSITORY TYPE CODE TESTS RESULT OUT OF REFERENCE UNITS RANGE LAB L501.080 70-110 mg/dL High BEDSIDE GLU 247 Result Comment: MANAGEMENT OF PATIENT CARE PER NURSING PROTOCOL Performed By: #### L501.080 #### [facility] Point of Care [address] [place] [address] BEDSIDE GLUCOSE Collected: 06/18/2018 Status: F Source: [place] 11:01 AM [facility] REPOSITORY TYPE CODE TESTS RESULT OUT OF REFERENCE UNITS RANGE LAB L501.080 70-110 mg/dL High BEDSIDE GLU 317 Result Comment: MANAGEMENT OF PATIENT CARE PER NURSING PROTOCOL Performed By: #### L501.080 #### [facility] Point of Care [address] [place] [address] BEDSIDE GLUCOSE Collected: 06/18/2018 Status: F Source: [place] 6:52 AM [facility] REPOSITORY TYPE CODE TESTS RESULT OUT OF REFERENCE UNITS RANGE LAB L501.080 70-110 mg/dL High BEDSIDE GLU 200 Result Comment: MANAGEMENT OF PATIENT CARE PER NURSING PROTOCOL Performed By: #### L501.080 #### [facility] Point of Care [address] [place] [address] BEDSIDE GLUCOSE Collected: 06/17/2018 Status: F Source: [place] 9:05 PM [facility] REPOSITORY TYPE CODE TESTS RESULT OUT OF REFERENCE UNITS RANGE LAB L501.080 70-110 mg/dL High BEDSIDE GLU 274 Result Comment: MANAGEMENT OF PATIENT CARE PER NURSING PROTOCOL Performed By: #### L501.080 #### [facility] Point of Care [address] [place] [address] BEDSIDE GLUCOSE Collected: 06/17/2018 Status: F Source: [place] 4:34 PM [facility] REPOSITORY TYPE CODE TESTS RESULT OUT OF REFERENCE UNITS RANGE LAB L501.080 70-110 mg/dL High BEDSIDE GLU 229 Result Comment: MANAGEMENT OF PATIENT CARE PER NURSING PROTOCOL Performed By: #### L501.080 #### [facility] Point of Care [address] [place] [address] BEDSIDE GLUCOSE Collected: 06/17/2018 Status: F Source: [place] 11:32 AM [facility] REPOSITORY TYPE CODE TESTS RESULT OUT OF REFERENCE UNITS RANGE LAB L501.080 70-110 mg/dL High BEDSIDE GLU 230 Result Comment: MANAGEMENT OF PATIENT CARE PER NURSING PROTOCOL Performed By: #### L501.080 #### [facility] Point of Care [address] [place] [address] VENOUS DUPLEX UPPER Observed: 06/17/2018 Status: F Source: [place] EXTREMITY 7:30 AM [facility] REPOSITORY [facility] Cardiovascular Services [address] [place] [address] Venous Duplex US - Dean Extrem 06/13/18 1408 MR#: [id number] Acct: [id number] Name: YADI WESTFALL Rep #: [id number] : 1945 72 From: Luiz Simon MD [...] Date Dictated: 06/13/18 1408 Date Transcribed: 06/17/18728 Bed Bug Exterminator: Signed VENOUS DUPLEX LOWER Observed: 06/17/2018 Status: F Source: [place] EXTREMITY 7:07 AM [facility] REPOSITORY [facility] Cardiovascular Services [address] [place] [address] Venous Duplex US, Unilateral 06/13/18 1352 MR#: [id number] Acct: [id number] Name: YADI WESTFALL Rep #: [id number] : 1945 72 From: Luiz Simon MD [...] Date Dictated: 06/13/18 1352 Date Transcribed: 06/17/18706 Bed Bug Exterminator: Signed BEDSIDE GLUCOSE Collected: 06/17/2018 Status: F Source: [place] 6:59 AM [facility] REPOSITORY TYPE CODE TESTS RESULT OUT OF REFERENCE UNITS RANGE LAB L501.080 70-110 mg/dL High BEDSIDE GLU 190 Result Comment: MANAGEMENT OF PATIENT CARE PER NURSING PROTOCOL Performed By: #### L501.080 #### [facility] Point of Care [address] [place] [address] BEDSIDE GLUCOSE Collected: 06/16/2018 Status: F Source: [place] 9:21 PM [facility] REPOSITORY TYPE CODE TESTS RESULT OUT OF REFERENCE UNITS RANGE LAB L501.080 70-110 mg/dL High BEDSIDE GLU 262 Result Comment: MANAGEMENT OF PATIENT CARE PER NURSING PROTOCOL Performed By: #### L501.080 #### [facility] Point of Care [address] [place] [address] BEDSIDE GLUCOSE Collected: 06/16/2018 Status: F Source: [place] 5:04 PM [facility] REPOSITORY TYPE CODE TESTS RESULT OUT OF REFERENCE UNITS RANGE LAB L501.080 70-110 mg/dL High BEDSIDE GLU 247 Result Comment: MANAGEMENT OF PATIENT CARE PER NURSING PROTOCOL Performed By: #### L501.080 #### [facility] Point of Care [address] [place] [address] BEDSIDE GLUCOSE Collected: 06/16/2018 Status: F Source: [place] 11:37 AM [facility] REPOSITORY TYPE CODE TESTS RESULT OUT OF REFERENCE UNITS RANGE LAB L501.080 70-110 mg/dL High BEDSIDE GLU 266 Result Comment: MANAGEMENT OF PATIENT CARE PER NURSING PROTOCOL Performed By: #### L501.080 #### [facility] Point of Care [address] [place] [address] BEDSIDE GLUCOSE Collected: 06/16/2018 Status: F Source: [place] 6:31 AM [facility] REPOSITORY TYPE CODE TESTS RESULT OUT OF REFERENCE UNITS RANGE LAB L501.080 70-110 mg/dL High BEDSIDE GLU 172 Result Comment: MANAGEMENT OF PATIENT CARE PER NURSING PROTOCOL Performed By: #### L501.080 #### [facility] Point of Care [address] [place] [address] BEDSIDE GLUCOSE Collected: 06/15/2018 Status: F Source: [place] 11:13 PM [facility] REPOSITORY TYPE CODE TESTS RESULT OUT OF REFERENCE UNITS RANGE LAB L501.080 70-110 mg/dL High BEDSIDE GLU 275 Result Comment: MANAGEMENT OF PATIENT CARE PER NURSING PROTOCOL Performed By: #### L501.080 #### [facility] Point of Care [address] [place] [address] BEDSIDE GLUCOSE Collected: 06/15/2018 Status: F Source: [place] 4:09 PM [facility] REPOSITORY TYPE CODE TESTS RESULT OUT OF REFERENCE UNITS RANGE LAB L501.080 70-110 mg/dL High BEDSIDE GLU 202 Result Comment: MANAGEMENT OF PATIENT CARE PER NURSING PROTOCOL Performed By: #### L501.080 #### [facility] Point of Care [address] [place] [address] BEDSIDE GLUCOSE Collected: 06/15/2018 Status: F Source: [place] 11:56 AM [facility] REPOSITORY TYPE CODE TESTS RESULT OUT OF REFERENCE UNITS RANGE LAB L501.080 70-110 mg/dL High BEDSIDE GLU 179 Result Comment: MANAGEMENT OF PATIENT CARE PER NURSING PROTOCOL Performed By: #### L501.080 #### [facility] Point of Care [address] [place] [address] BEDSIDE GLUCOSE Collected: 06/15/2018 Status: F Source: [place] 7:23 AM [facility] REPOSITORY TYPE CODE TESTS RESULT OUT OF REFERENCE UNITS RANGE LAB L501.080 70-110 mg/dL High BEDSIDE GLU 179 Result Comment: MANAGEMENT OF PATIENT CARE PER NURSING PROTOCOL Performed By: #### L501.080 #### [facility] Point of Care [address] [place] [address] BEDSIDE GLUCOSE Collected: 06/14/2018 Status: F Source: [place]ONITA 9:47 PM [facility] REPOSITORY TYPE CODE TESTS RESULT OUT OF REFERENCE UNITS RANGE LAB L501.080 70-110 mg/dL High BEDSIDE GLU 231 Result Comment: MANAGEMENT OF PATIENT CARE PER NURSING PROTOCOL Performed By: #### L501.080 #### [facility] Point of Care [address] [place] [address] BEDSIDE GLUCOSE Collected: 06/14/2018 Status: F Source: GRUNDY 4:59 PM [facility] REPOSITORY TYPE CODE TESTS RESULT OUT OF REFERENCE UNITS RANGE LAB L501.080 70-110 mg/dL High BEDSIDE GLU 214 Result Comment: MANAGEMENT OF PATIENT CARE PER NURSING PROTOCOL Performed By: #### L501.080 #### [facility] Point of Care [address] [place] [address] 12 LEAD ELECTROCARDIOGRAM Observed: 06/14/2018 Status: F Source: GRUNDY 3:49 PM [facility] REPOSITORY [facility] Cardiovascular Services [address] [place] [address] 12 Lead EKG 06/09/18 1727 MR#: [id number] Acct: [id number] Name: YADI WESTFALL Rep #: [id number] : 1945 72 From: Bj Matute MD [...] Abnormal ECG Confirmed by JUJU BERG, BJ ([id number]), graphics editor SAHARA TIPTON ([id number]) on 06/14/2018 3:48:29 [...] NURSING PROTOCOL Performed By: #### L501.080 #### [facility] Point of Care [address] [place] [address] BEDSIDE GLUCOSE Collected: 06/14/2018 Status: F Source: B[place] 7:02 AM [facility] REPOSITORY TYPE CODE TESTS RESULT OUT OF REFERENCE UNITS RANGE LAB L501.080 70-110 mg/dL High BEDSIDE GLU 181 Result Comment: MANAGEMENT OF PATIENT CARE PER NURSING PROTOCOL Performed By: #### L501.080 #### [facility] Point of Care [address] [place] [address] BEDSIDE GLUCOSE Collected: 06/13/2018 Status: F Source: [place] 9:43 PM [facility] REPOSITORY TYPE CODE TESTS RESULT OUT OF REFERENCE UNITS RANGE LAB L501.080 70-110 mg/dL High BEDSIDE GLU 245 Result Comment: MANAGEMENT OF PATIENT CARE PER NURSING PROTOCOL Performed By: #### L501.080 #### [facility] Point of Care [address] [place] [address] BEDSIDE GLUCOSE Collected: 06/13/2018 Status: F Source: [place] 5:08 PM [facility] REPOSITORY TYPE CODE TESTS RESULT OUT OF REFERENCE UNITS RANGE LAB L501.080 70-110 mg/dL High BEDSIDE GLU 130 Result Comment: MANAGEMENT OF PATIENT CARE PER NURSING PROTOCOL Performed By: #### L501.080 #### [facility] Point of Care [address] [place] [address] BEDSIDE GLUCOSE Collected: 06/13/2018 Status: F Source: [place] 11:37 AM [facility] REPOSITORY TYPE CODE TESTS RESULT OUT OF REFERENCE UNITS RANGE LAB L501.080 70-110 mg/dL High BEDSIDE GLU 166 Result Comment: MANAGEMENT OF PATIENT CARE PER NURSING PROTOCOL Performed By: #### L501.080 #### [facility] Point of Care [address] [place] [address] BEDSIDE GLUCOSE Collected: 06/13/2018 Status: F Source: [place] 6:31 AM [facility] REPOSITORY TYPE CODE TESTS RESULT OUT OF REFERENCE UNITS RANGE LAB L501.080 70-110 mg/dL High BEDSIDE GLU 169 Result Comment: MANAGEMENT OF PATIENT CARE PER NURSING PROTOCOL Performed By: #### L501.080 #### [facility] Point of Care [address] [place] [address] BEDSIDE GLUCOSE Collected: 06/12/2018 Status: F Source: [place] 8:16 PM [facility] REPOSITORY TYPE CODE TESTS RESULT OUT OF REFERENCE UNITS RANGE LAB L501.080 70-110 mg/dL High BEDSIDE GLU 201 Result Comment: MANAGEMENT OF PATIENT CARE PER NURSING PROTOCOL Performed By: #### L501.080 #### [facility] Point of Care [address] [place] [address] BEDSIDE GLUCOSE Collected: 06/12/2018 Status: F Source: [place] 4:31 PM [facility] REPOSITORY TYPE CODE TESTS RESULT OUT OF REFERENCE UNITS RANGE LAB L501.080 70-110 mg/dL High BEDSIDE GLU 187 Result Comment: MANAGEMENT OF PATIENT CARE PER NURSING PROTOCOL Performed By: #### L501.080 #### [facility] Point of Care [address] [place] [address] BEDSIDE GLUCOSE Collected: 06/12/2018 Status: F Source: [place] 12:06 PM [facility] REPOSITORY TYPE CODE TESTS RESULT OUT OF REFERENCE UNITS RANGE LAB L501.080 70-110 mg/dL High BEDSIDE GLU 194 Result Comment: MANAGEMENT OF PATIENT CARE PER NURSING PROTOCOL Performed By: #### L501.080 #### [facility] Point of Care [address] [place] [address] BEDSIDE GLUCOSE Collected: 06/12/2018 Status: F Source: [place] 6:38 AM [facility] REPOSITORY TYPE CODE TESTS RESULT OUT OF REFERENCE UNITS RANGE LAB L501.080 70-110 mg/dL High BEDSIDE GLU 156 Result Comment: MANAGEMENT OF PATIENT CARE PER NURSING PROTOCOL Performed By: #### L501.080 #### [facility] Point of Care [address] [place] [address] BEDSIDE GLUCOSE Collected: 06/11/2018 Status: F Source: [place] 11:02 PM [facility] REPOSITORY TYPE CODE TESTS RESULT OUT OF REFERENCE UNITS RANGE LAB L501.080 70-110 mg/dL High BEDSIDE GLU 212 Result Comment: MANAGEMENT OF PATIENT CARE PER NURSING PROTOCOL Performed By: #### L501.080 #### [facility] Point of Care [address] [place] [address] BEDSIDE GLUCOSE Collected: 06/11/2018 Status: F Source: [place] 8:18 PM [facility] REPOSITORY TYPE CODE TESTS RESULT OUT OF REFERENCE UNITS RANGE LAB L501.080 70-110 mg/dL High BEDSIDE GLU 228 Result Comment: MANAGEMENT OF PATIENT CARE PER NURSING PROTOCOL Performed By: #### L501.080 #### [facility] Point of Care [address] [place] [address] BEDSIDE GLUCOSE Collected: 06/11/2018 Status: F Source: [place] 4:59 PM [facility] REPOSITORY TYPE CODE TESTS RESULT OUT OF REFERENCE UNITS RANGE LAB L501.080 70-110 mg/dL High BEDSIDE GLU 220 Result Comment: MANAGEMENT OF PATIENT CARE PER NURSING PROTOCOL Performed By: #### L501.080 #### [facility] Point of Care [address] [place] [address] BEDSIDE GLUCOSE Collected: 06/11/2018 Status: F Source: [place] 11:41 AM [facility] REPOSITORY TYPE CODE TESTS RESULT OUT OF REFERENCE UNITS RANGE LAB L501.080 70-110 mg/dL High BEDSIDE GLU 306 Result Comment: MANAGEMENT OF PATIENT CARE PER NURSING PROTOCOL Performed By: #### L501.080 #### [facility] Point of Care [address] [place] [address] CBC W/DIFF, AUTOMATED Collected: 06/11/2018 [...] Lymph 1.84 Performed By: #### L100.0100 #### [facility] [address] [place], [place], [address] COMPREHENSIVE METABOLIC Collected: 06/11/2018 Status: F Source: [...] GAP 8 Performed By: #### L500.4050 #### [facility] [address] [place], [address] BEDSIDE GLUCOSE Collected: 06/11/2018 Status: F Source: [place] 7:08 AM [facility] REPOSITORY TYPE CODE TESTS RESULT OUT OF REFERENCE UNITS RANGE LAB L501.080 70-110 mg/dL High BEDSIDE GLU 206 Result Comment: MANAGEMENT OF PATIENT CARE PER NURSING PROTOCOL Performed By: #### L501.080 #### [facility] Point of Care [address] [place] [address] BEDSIDE GLUCOSE Collected: 06/10/2018 Status: F Source: [place] 8:25 PM [facility] REPOSITORY TYPE CODE TESTS RESULT OUT OF REFERENCE UNITS RANGE LAB L501.080 70-110 mg/dL High BEDSIDE GLU 306 Result Comment: MANAGEMENT OF PATIENT CARE PER NURSING PROTOCOL Performed By: #### L501.080 #### [facility] Point of Care [address] [place] [address] BEDSIDE GLUCOSE Collected: 06/10/2018 Status: F Source: [place] 4:41 PM [facility] REPOSITORY TYPE CODE TESTS RESULT OUT OF REFERENCE UNITS RANGE LAB L501.080 70-110 mg/dL High BEDSIDE GLU 284 Result Comment: MANAGEMENT OF PATIENT CARE PER NURSING PROTOCOL Performed By: #### L501.080 #### [facility] Point of Care [address] [place] [address] DISCHARGE SUMMARY Observed: 06/10/2018 Status: F Source: [place] 4:39 PM [facility] REPOSITORY [facility] Medical Records Department [address] [place] [address] Discharge Summary 06/10/18 1233 MR#: [id number] Acct: [id number] Name: YADI WESTFALL Rep #: [id number] : 1945 72 From: Rolando Avila MD PCP: Chaz BERG,Bakari Correa Status: ADM MAGALIE Y Location: [place] [address] Discharge Date and Diagnosis Date of Admission: [...] 70% luminal narrowing. CTA Brain: IMPRESSION: Normal mary[place] of [place] without a demonstrated aneurysm or [...] Indicated Code Visit OBSV E AND M: 42874 Observation care discharge 06/10/18 2889 <Electronically signed by Rolando Avila MD> Date Rolando Avila MD Cosigner Signature (if applicable): Date CC: Rolando Avila MD; Bakari Ware MD Signed 12 LEAD ELECTROCARDIOGRAM Observed: 06/10/2018 Status: F Source: [place] 2:26 PM [facility] REPOSITORY [facility] Cardiovascular Services [address] [place] [address] 12 Lead EKG 06/08/18 1030 MR#: [id number] Acct: [id number] Name: YADI WESTFALL Rep #: [id number] : 1945 72 From: George Bourne MD Attending Dr: Rolando Avila MD Status: ADM MAGALIE Ordering Dr: Michael Ocampo MD Date: 06/08/18 Location: [facility] Sex: F C Admitted: 06/08/18 [...] ECG Confirmed by CHESTER BERG, GEORGE ([id number]), graphics editor ABBE ELIAS ([id number]) on 06/10/2018 2:26:45 PM Referred By: ADOLFO Confirmed By:GEORGE BOURNE MD 06/10/18 1426 Date George Bourne MD CC: Michael Ocampo MD; Rolando Avila MD; Bakari Ware MD Signed DISCHARGE INSTRUCTION Observed: 06/10/2018 Status: F Source: [place] 12:33 PM [facility] REPOSITORY [facility] Medical Records Department [address] [place] [address] Instructions for Home/Discharge Instructions 06/10/18 1232 MR#: [id number] Acct: [id number] Name: YADI WESTFALL Rep #: [id number] : 1945 72 From: Rolando Avila MD [...] NURSING PROTOCOL Performed By: #### L501.080 #### [facility] Point of Care [address] [place] [address] BEDSIDE GLUCOSE Collected: 06/10/2018 Status: F Source: [place] 6:59 AM [facility] REPOSITORY TYPE CODE TESTS RESULT OUT OF REFERENCE UNITS RANGE LAB L501.080 70-110 mg/dL High BEDSIDE GLU 207 Result Comment: MANAGEMENT OF PATIENT CARE PER NURSING PROTOCOL Performed By: #### L501.080 #### [facility] Point of Care [address] [place] [address] BEDSIDE GLUCOSE Collected: 06/09/2018 Status: F Source: [place] 8:50 PM [facility] REPOSITORY TYPE CODE TESTS RESULT OUT OF REFERENCE UNITS RANGE LAB L501.080 70-110 mg/dL High BEDSIDE GLU 272 Result Comment: MANAGEMENT OF PATIENT CARE PER NURSING PROTOCOL Performed By: #### L501.080 #### [facility] Point of Care [address] [place] [address] BEDSIDE GLUCOSE Collected: 06/09/2018 Status: F Source: [place] 4:15 PM [facility] REPOSITORY TYPE CODE TESTS RESULT OUT OF REFERENCE UNITS RANGE LAB L501.080 70-110 mg/dL High BEDSIDE GLU 258 Result Comment: MANAGEMENT OF PATIENT CARE PER NURSING PROTOCOL Performed By: #### L501.080 #### [facility] Point of Care [address] [place] [address] VENOUS DUPLEX LOWER Observed: 06/09/2018 Status: F Source: [place] EXTREMITY 1:09 PM [facility] REPOSITORY [facility] Cardiovascular Services [address] [place] [address] Venous Duplex US, Unilateral 06/08/18 1124 MR#: [id number] Acct: [id number] Name: YADI WESTFALL Rep #: [id number] : 1945 72 From: Luiz Simon MD Attending Dr: Rolando Avila MD Status: ADM MAGALIE Ordering Dr: Michael Ocampo MD Date: 06/08/18 Location: [facility] Sex: F C Admitted: 06/08/18 [...] Bakari Ware Chi Performed By: Esteban [facility] [place] and Student 06/09/18 1309 Date Luiz Simon MD CC: Michael Ocampo MD; Rolando Avila MD; Bakari Ware MD Date Dictated: 06/08/18 1124 Date Transcribed: 06/09/18 1309 Bed Bug Exterminator: Signed BEDSIDE GLUCOSE Collected: 06/09/2018 Status: F Source: [place] 11:23 AM [facility] REPOSITORY TYPE CODE TESTS RESULT OUT OF REFERENCE UNITS RANGE LAB L501.080 70-110 mg/dL High BEDSIDE GLU 274 Result Comment: MANAGEMENT OF PATIENT CARE PER NURSING PROTOCOL Performed By: #### L501.080 #### [facility] Point of Care [address] [place] [address] BEDSIDE GLUCOSE Collected: 06/09/2018 Status: F Source: [place] 6:55 AM [facility] REPOSITORY TYPE CODE TESTS RESULT OUT OF REFERENCE UNITS RANGE LAB L501.080 70-110 mg/dL High BEDSIDE GLU 166 Result Comment: MANAGEMENT OF PATIENT CARE PER NURSING PROTOCOL Performed By: #### L501.080 #### [facility] Point of Care [address] [place] [address] BASIC METABOLIC Collected: 06/09/2018 Status: F Source: [...] 8 Performed By: #### L500.2500, L500.4100 #### [facility] [address] [place], [address] LIPID PROFILE Collected: 06/09/2018 Status: F Source: [place] 6:15 AM [facility] [...] 9 Performed By: #### L500.2500, L500.4100 #### [facility] [address] [place], [place], [address] BRAIN/HEAD WITHOUT Observed: 06/09/2018 Status: F Source: [place] CONTRAST 12:00 AM [facility] REPOSITORY [facility] Imaging Services [address] [place] [address] Brain/Head without Contrast MR#: [id number] Acct: [id number] Name: YADI WESTFALL Rep #: [id number] : 1945 F 72 From: Leonard Galo MD PCP: Chaz BERG,Bakari [facility] Status: ADM MAGALIE Study: Brain/Head without Contrast Date of Exam: 06/09/18 Exam# [id number] Ordering Dr: Rolando Avila MD STUDY: CT [...] CC: Rolando Avila MD; Bakari Ware MD Bed Bug Exterminator: Signed BEDSIDE GLUCOSE Collected: 06/08/2018 Status: F Source: [place] 10:01 PM [facility] REPOSITORY TYPE CODE TESTS RESULT OUT OF REFERENCE UNITS RANGE LAB L501.080 70-110 mg/dL High BEDSIDE GLU 220 Result Comment: MANAGEMENT OF PATIENT CARE PER NURSING PROTOCOL Performed By: #### L501.080 #### [facility] Point of Care [address] [place] [address] HISTORY AND PHYSICAL Observed: 06/08/2018 Status: F Source: [place] EXAM 5:47 PM [facility] REPOSITORY [facility] Medical Records Department [address] [place] [address] History and Physical 06/08/18 1720 MR#: [id number] Acct: [id number] Name: YADI WESTFALL Rep #: [id number] : 1945 72 From: Rolando Avila MD PCP: Bakari Ware MD, Chi Status: ADM MAGALIE Y Location: [place] [address] Problem List (1) Type 2 diabetes mellitus [...] symptoms but does not take any medications PHYSICIAN OFFICE SPECIALIST History: No pertinent PHYSICIAN OFFICE SPECIALIST history Smoking Status: Former smoker Tobacco Use: [...] SCDs Code Visit OBSV E AND M: 40290 Observation care discharge 06/08/181746 <Electronically signed by Rolando Avila MD> Date Rolando Avila MD Cosigner Signature: Date (if applicable) CC: Rolando Avila MD; Bakari Ware MD Signed ECHO, COMPLETE W/ Observed: 06/08/2018 Status: F Source: [place] CONTRAST 4:39 PM [facility] REPOSITORY [facility] Cardiovascular Services [address] [place] [address] Echo Complete W/ Contrast 06/08/18 1528 MR#: [id number] Acct: [id number] Name: YADI WESTFALL Rep #: [id number] : 1945 72 From: Michael Wing MD Attending Dr: Rolando Avila MD Status: ADM MAGALIE Ordering Dr: Rolando Avila MD Date: 06/08/18 Location: [facility] Sex: F C Admitted: 06/08/18 [...] Date Dictated: 06/08/18 1528 Date Transcribed: 06/08/181638 Bed Bug Exterminator: Signed BEDSIDE GLUCOSE Collected: 06/08/2018 Status: F Source: [place] 4:26 PM [facility] REPOSITORY TYPE CODE TESTS RESULT OUT OF REFERENCE UNITS RANGE LAB L501.080 70-110 mg/dL High BEDSIDE GLU 182 Result Comment: MANAGEMENT OF PATIENT CARE PER NURSING PROTOCOL Performed By: #### L501.080 #### [facility] Point of Care [address] [place] [address] EMERGENCY DEPARTMENT Observed: 06/08/2018 Status: F Source: [place] SUMMARY 4:14 PM [facility] REPOSITORY [facility] Medical Records Department [address] [place] [address] Emergency Department Summary 06/08/18 1111 MR#: [id number] Acct: [id number] Name: YADI WESTFALL Rep #: [id number] : 1945 72 From: Michael Ocampo MD PCP: Bakari Ware MD, Chi Status: ADM MAGALIE - ER Visit Summary Date of Service: 06/08/18 Chief Complaint: Stroke History of Present Illness: The patient is a 72 F with stroke symptoms. Patient was last seen normal at 6:20 AM this morning. She went to eye care professional and had a bladder stimulator placed. She [...] leg swelling This note was generated with Ceresation software. It may contain incorrect words, spelling, [...] your Primary Care Provider. Call [facility] ([phone]) or report to the closest Emergency Room. Call 911 if necessary. 06/08/18 1614 <Electronically signed by Michael Ocampo MD> Date Michael Ocampo MD Cosigner Signature (If Indicated): Date CC: Bakari Ware MD CONSULTATION Observed: 06/08/2018 Status: F Source: GR[place] 2:04 PM [facility] REPOSITORY [facility] Medical Records Department [address] [place] [address] Consultation 06/08/18 1348 MR#: [id number] Acct: [id number] Name: YADI WESTFALL Rep #: [id number] : 1945 72 From: Musa Llamas MD PCP: Bakari Ware MD, Chi Status: ADM MAGALIE Y Location: [place] [address] Reason for Consult Date of Consultation: 06/08/18 [...] symptoms but does not take any medications PHYSICIAN OFFICE SPECIALIST History: No pertinent PHYSICIAN OFFICE SPECIALIST history Smoking Status: Former smoker - *Family [...] Lymph 2.18 Performed By: #### L100.0100 #### [facility] [address] [place] [address]. [place], [place], [address] CBC W/DIFF, AUTOMATED Collected: 06/08/2018 Status: F Source: [place] 10:29 AM [facility] [...] Lymph 2.19 Performed By: #### L100.0100 #### [facility] [address] [facility] [place], [address] PROTHROMBIN TIME W/INR Collected: 06/08/2018 Status: F Source: [place] 10:29 AM [facility] REPOSITORY TYPE CODE TESTS RESULT OUT OF RANGE REFERENCE UNITS LAB L300.4150 11.7-14.9 SECONDS Normal PROTIME 14.4 LAB L300.4200 Normal INR 1.1 Performed By: #### L300.3900, L300.4310 #### [facility] [address] [facility] [place], [address] PARTIAL THROMBOPLAST Collected: 06/08/2018 Status: F Source: [place] TIME 10:29 AM [facility] REPOSITORY TYPE CODE TESTS RESULT OUT OF RANGE REFERENCE UNITS LAB L300.4310 24.1-36.2 Seconds Normal PTT 31.5 Performed By: #### L300.3900, L300.4310 #### [facility] [address] [place], [place], [address] BASIC METABOLIC Collected: 06/08/2018 Status: F Source: [...] 8 Performed By: #### L500.2500, L501.4010 #### [facility] [address] [place], [address] TROPONIN-I Collected: 06/08/2018 Status: F Source: [place] 10:29 AM [facility] REPOSITORY TYPE CODE TESTS RESULT OUT OF RANGE REFERENCE UNITS LAB L501.4010 <0.045 ng/mL Normal < 0.015 TROPONIN-I Result Comment: TROPONIN-I EXPECTED VALUES <0.045 Negative 0.045 - 0.590 Consistent with Cardiac Damage > OR = 0.600 Critical Value Not every elevated troponin is indicative of WA. These values should be used with clinical judgement in examining the patient's clinical picture for diagnosis. To establish a diagnosis of WA versus myocardial injury, there must be a demonstrated rise and/or fall in the troponin values, in addition to ischemic symptoms, EKG changes, new regional wall motion abnormality, and/or angiographical evidence. PLEASE NOTE: REFERENCE RANGES EDITED 17 Performed By: #### L500.2500, L501.4010 #### [facility] [address] [place], [address] CTA NECK W/WO Observed: 06/08/2018 Status: F Source: [place] CONTRAST 10:20 AM [facility] REPOSITORY [facility] Imaging Services [address] [place] [address] CTA Neck W/WO Contrast MR#: [id number] Acct: [id number] Name: YADI WESTFALL Rep #: [id number] : 1945 F 72 From: Tyson Lim MD PCP: Chaz BERG,Bakari Correa Status: ADM MAGALIE Study: CTA Neck W/WO Contrast Date of Exam: 06/08/18 Exam# [id number] Ordering Dr: Michael Ocampo MD STUDY: CTA [...] Tyson Lim MD at 10:50 EST Tel [phone], Service support , STUDY: CTA OF THE [...] There is no demonstrated aneurysm of the mary's igloo of [place]. CT/CTA Neck W/WO Contrast IMPRESSION: Normal mary's igloo of [place] without a demonstrated aneurysm or hemodynamically significant stenosis. N.B. : The above information has been verbally conveyed by Tyson Lim MD to Michael Ocampo on 06/08/2018 10:50:29 (ET). Electronically Signed: Tyson Lim MD at 10:52 EST Tel [phone], Service support , CC: Michael Ocampo MD; Bakari Ware MD Bed Bug Exterminator: Signed CTA HEAD W/WO Observed: 06/08/2018 Status: F Source: [place] CONTRAST 10:20 AM [facility] REPOSITORY [facility] Imaging Services [address] [place] [address] CTA Head W/WO Contrast MR#: [id number] Acct: [id number] Name: YADI WESTFALL Rep #: [id number] : 1945 F 72 From: Tyson Lim MD PCP: Bakari Ware MD, Chi Status: ADM MAGALIE Study: CTA Head W/WO Contrast Date of Exam: 06/08/18 Exam# [id number] Ordering Dr: Michael Ocampo MD STUDY: CTA [...] Tyson Lim MD at 10:50 EST Tel [phone], Service support , STUDY: CTA OF THE [...] There is no demonstrated aneurysm of the mary's igloo of [place]. CT/CTA Head W/WO Contrast IMPRESSION: Normal mary's igloo of [place] without a demonstrated aneurysm or hemodynamically significant stenosis. N.B. : The above information has been verbally conveyed by Tyson Lim MD to Michael Ocampo on 06/08/2018 10:50:29 (ET). Electronically Signed: Tyson Lim MD at 10:52 EST Tel [phone], Service support , CC: Michael Ocampo MD; Bakari Ware MD Bed Bug Exterminator: Signed BRAIN/HEAD WITHOUT Observed: 06/08/2018 Status: F Source: [place] CONTRAST 10:18 AM [facility] REPOSITORY [facility] Imaging Services [address] [place] [address] Brain/Head without Contrast MR#: [id number] Acct: [id number] Name: YADI WESTFALL Rep #: [id number] : 1945 F 72 From: Tyson Lim MD PCP: Chaz BERG,Bakari Correa Status: REG ER Study: Brain/Head without Contrast Date of Exam: 06/08/18 Exam# [id number] Ordering Dr: Michael Ocampo MD STUDY: CT BRAIN WITHOUT CONTRAST [...] Tyson Lim MD at 10:46 EST Tel [phone], Service support , CC: Michael Ocampo MD; Bakari Ware MD Bed Bug Exterminator: Signed CHEST 1 VIEW Observed: 06/08/2018 Status: F Source: [place] 10:18 AM [facility] REPOSITORY [facility] Imaging Services [address] [place] [address] Chest 1 View MR#: [id number] Acct: [id number] Name: YADI WESTFALL Rep #: [id number] : 1945 F 72 From: Tyson Lim MD PCP: Bakari Ware MD, Chi Status: REG ER Study: Chest 1 View Date of Exam: 06/08/18 Exam# [id number] Ordering Dr: Michael Ocampo MD STUDY: X-RAY [...] Tyson Lim MD at 11:16 EST Tel [phone], Service support , CC: Michael Ocampo MD; Bakari Ware MD Bed Bug Exterminator: Signed BEDSIDE GLUCOSE Collected: 06/08/2018 Status: F Source: [place] 10:10 AM [facility] REPOSITORY TYPE CODE TESTS RESULT OUT OF REFERENCE UNITS RANGE LAB L501.080 70-110 mg/dL High BEDSIDE GLU 221 Result Comment: MANAGEMENT OF PATIENT CARE PER NURSING PROTOCOL Performed By: #### L501.080 #### [facility] Point of Care [address] [place] [address] BEDSIDE GLUCOSE Collected: 06/08/2018 Status: F Source: [place] 9:50 AM [facility] REPOSITORY TYPE CODE TESTS RESULT OUT OF REFERENCE UNITS RANGE LAB L501.080 70-110 mg/dL High BEDSIDE GLU 242 Result Comment: MANAGEMENT OF PATIENT CARE PER NURSING PROTOCOL Performed By: #### L501.080 #### [facility] Point of Care [address] [place], [place] [address] PELVIS 1 OR 2 VIEWS Observed: 06/08/2018 Status: F Source: [place] 8:28 AM [facility] REPOSITORY [facility] Imaging Services [address] [place] [address] Pelvis 1 or 2 Views MR#: [id number] Acct: [id number] Name: YADI WESTFALL Rep #: [id number] : 1945 F 72 From: Tyson Lim MD PCP: Chaz BERG,Bakari Correa Status: [employer] Study: Pelvis 1 or 2 Views Date of Exam: 06/08/18 Exam# [id number] Ordering Dr: Connor Brito MD STUDY: X-RAY [...] Tyson Lim MD at 9:29 EST Tel [phone], Service support , CC: Connor Brito MD; Bakari Ware MD Bed Bug Exterminator: Signed OPERATIVE REPORT Observed: 06/08/2018 Status: F Source: [place] 8:25 AM [facility] REPOSITORY [facility] Medical Records Department [address] [place] [address] Operative Report 06/08/18 0820 MR#: [id number] Acct: [id number] Name: YADI WESTFALL Rep #: [id number] : 1945 72 From: Connor Brito MD PCP: Bakari Ware MD, Chi Status: REG SD Y Location: [place] [address] Report of Operation Date of Procedure: 06/08/18 [...] DISCHARGE INSTRUCTION Observed: 06/08/2018 Status: F Source: [place] 7:29 AM [facility] Medical Records Department [address] [place] [address] Instructions for Home/Discharge Instructions 06/08/18 0727 MR#: [id number] Acct: [id number] Name: YADI WESTFALL Rep #: [id number] : 1945 72 From: Connor Brito MD PCP: Chaz BERG,Bakari Correa Status: [facility] [place] Diet: Light diet - advance as [...] MD When: next week to see if [facility] is working 06/08/18 0729 <Electronically signed by Connor Brito MD> Date Connor Brito MD CC: Bakari Ware MD BEDSIDE GLUCOSE Collected: 06/08/2018 Status: F Source: [place] 6:50 AM [facility] REPOSITORY TYPE CODE TESTS RESULT OUT OF REFERENCE UNITS RANGE LAB L501.080 70-110 mg/dL High BEDSIDE GLU 236 Result Comment: MANAGEMENT OF PATIENT CARE PER NURSING PROTOCOL Performed By: #### L501.080 #### [facility] Point of Care [facility] [place] [address] Observed: 05/27/2018 Status: F Source: [place] CULTURE, URINE 10:30 AM [facility] REPOSITORY Urine Culture ORGANISM 1: Presumptive E. coli [place] Count >100,000 Presumptive E. coli: REACTION Amoxacillin/Clavulanic [...] <=20 S (NF) indicates non-formulary drug at [facility]. Approval by Infectious Disease Specialist required before non-formulary drugs may be ordered and/or dispensed. Performed By: #### M100.0650 #### [facility] [address] [place], [address] PROGRESS Observed: 05/17/2018 Status: COMPLETED Source: [place] 9:[address] [facility] REPOSITORY HNO ID: [id number] Author: Etelvina Mckeon [facility] Service: (none) Author Type: (none) Type: Progress Notes Filed: 05/17/2018 9:10 AM Note Text: Patient is seeing a different physician. I removed Dr. Bradford as PCP PROGRESS Observed: 05/12/2018 Status: COMPLETED Source: [place] 9:[address] [facility] REPOSITORY HNO ID: [id number] Author: Etelvina Mckeon [facility] Service: (none) Author Type: (none) Type: Progress [...] (mg/dL) Date Value 08/17/2015 Test sent to [facility]. 12/05/2014 113 HDL Cholesterol (mg/dL) Date Value 08/17/2015 Test sent to [facility]. 12/05/2014 60 LDL Cholesterol (mg/dL) Date Value 08/17/2015 Test sent to [facility]. 12/05/2014 46 Triglyceride (mg/dL) Date Value 08/17/2015 Test sent to [facility]. 12/05/2014 35 HGB A1C: Lab Results Component Value Date HBA1C 6.5 05/21/2016 HBA1C Test sent to [facility]. 08/17/2015 HBA1C 6.4 12/05/2014 HBA1C 6.7 06/18/2014 [...] Cma CNPTOUTREACH Observed: 05/12/2018 Status: COMPLETED Source: [place] 12:[address] [facility] REPOSITORY Patient Outreach (INTMWS) YADI WESTFALL ([id number]) 1945 F Date Time Provider Department 05/12/18 ETELVINA MCKEON) INTMWS During your visit today, we recorded the following information about you: Etelvina Mckeon Cma 05/17/2018 9:10 AM Signed [facility] REGISTRY DOCUMENTATION (OUTSIDE TEAMLET) Provider Action/FYI: PSR Action/FYI: *schedule physical appointment with labs prior *discuss HM Patient identified by name and date of . Last BP/Labs: Blood Pressure: Last 3 Encounter BP Readings: Date: BP: 06/09/2017 128/85 12/17/2016 118/78 10/09/2016 130/70 Lipids: Cholesterol, Total (mg/dL) Date Value 08/17/2015 Test sent to [facility]. 12/05/2014 113 HDL Cholesterol (mg/dL) Date Value 08/17/2015 Test sent to [facility]. 12/05/2014 60 LDL Cholesterol (mg/dL) Date Value 08/17/2015 Test sent to [facility]. 12/05/2014 46 Triglyceride (mg/dL) Date Value 08/17/2015 Test sent to [facility]. 12/05/2014 35 HGB A1C: Lab Results Component Value Date HBA1C 6.5 05/21/2016 HBA1C Test sent to [facility]. 08/17/2015 HBA1C 6.4 12/05/2014 HBA1C 6.7 06/18/2014 [...] office visit:Physical with labs prior Etelvina Mckeon [place] Etelvina Mckeon [place] 05/17/2018 9:10 AM Signed Patient is seeing [...] diabetes mellitus with diabetic neuropathy, unspecified whether long-term insulin use (HCC) [E11.40] Order(s):HGB A1C [UMCEI4H] Order #: [id number] FUTURE ALBUMIN/CREAT RATIO RND UR [SQUACR] Order #: [id number] FUTURE BASIC METABOLIC PNL [SQBMP] Order #: [id number] FUTURE LIPID PANEL BASIC [SQLIPB] Order #: [id number] FUTURE Prescriptions as of 05/12/2018 Sig: CLOPIDOGREL 75 MG TABLET Take 1 tablet by mouth once d* COMPOUNDED PRESCRIPTION [facility] [place]* COMPOUNDED PRESCRIPTION WHEEL [...] Lift chair. Dx. I69.3 M21.37* COMPOUNDED PRESCRIPTION nursing home - diabetic ma* COMPOUNDED PRESCRIPTION Left [...] INVALID FOR* More... PAD (peripheral artery disease) ([facility]) [I73.9] INVALID FOR* Left foot drop [M21.372] INVALID FOR* Closed traumatic displaced fracture of base of *INVALID FOR* Left hemiparesis ([facility]) [G81.94] INVALID FOR* Abnormality of gait [R26.9] INVALID FOR* CVA, old, hemiparesis ([facility]) [I69.359] INVALID FOR* Encounter Status:Closed by ETELVINA [...] MUCUS, URINE Performed By: #### L400.0001 #### [facility] [address] [place], [address] Observed: 04/19/2018 Status: F Source: [place] CULTURE, URINE 1:33 PM [facility] REPOSITORY Urine Culture ORGANISM 1: Presumptive E. coli [place] Count >100,000 Presumptive E. coli: REACTION Amoxacillin/Clavulanic [...] <=20 S (NF) indicates non-formulary drug at [facility]. Approval by Infectious Disease Specialist required before non-formulary drugs may be ordered and/or dispensed. Performed By: #### M100.0650 #### [facility] [address] [place], [address] ANKLE MIN 3 VIEWS Observed: 04/14/2018 Status: F Source: [place] 2:42 PM [facility] REPOSITORY [facility] Imaging Services [address] [place] [address] Ankle min 3 Views MR#: [id number] Acct: [id number] Name: YADI WESTFALL Rep #: [id number] : 1945 F 72 From: Alejandrina Mota MD PCP: Bakari Ware MD, Chi Status: REG CLI Study: Ankle min 3 Views Date of Exam: 04/14/18 Exam# [id number] Ordering Dr: Bakari Ware MD STUDY: X-RAY [...] Service support , CC: Bakari Ware MD Bed Bug Exterminator: Signed FOOT MIN 3 VIEWS Observed: 04/14/2018 Status: F Source: [place] 2:42 PM [facility] REPOSITORY [facility] Imaging Services [address] [place] [address] Foot min 3 Views MR#: [id number] Acct: [id number] Name: YADI WESTFALL Rep #: [id number] : 1945 F 72 From: Rolan Rascon MD PCP: Bakari Ware MD, Chi Status: REG CLI Study: Foot min 3 Views Date of Exam: 04/14/18 Exam# [id number] Ordering Dr: Bakari Ware MD STUDY: X-RAY [...] Service support , CC: Bakari Ware MD Bed Bug Exterminator: Signed CBC W/DIFF, AUTOMATED Collected: 04/14/2018 Status: [...] 1.71 Performed By: #### L100.0100 #### [place] [facility] [address] [place], [place], [address] VITAMIN D,25 HYDROXY Collected: 04/14/2018 Status: F [...] (>250 nmol/L) Performed By: #### L506.1000 #### [facility] [place], [address] COMPREHENSIVE METABOLIC Collected: 04/14/2018 Status: F [facility] [...] 5 Performed By: #### L500.4050, L501.9520 #### [facility] [address] [facility] [place], [address] THYROID STIM HORMONE Collected: 04/14/2018 Status: F Source: [place] (TSH) 1:05 PM [facility] REPOSITORY TYPE CODE TESTS RESULT OUT OF RANGE REFERENCE UNITS LAB L501.9520 0.358-3.74 uIU/mL Normal TSH 0.66 Performed By: #### L500.4050, L501.9520 #### [facility] [address] [place], [address] LUNG Observed: 04/08/2018 Status: F Source: [place] SCREENING 3:52 PM [facility] REPOSITORY [facility] Imaging Services [address] [place] [address] Lung Screening MR#: [id number] Acct: [id number] Name: YADI WESTFALL Rep #: [id number] : 1945 F 72 From: Ab Hylton DO PCP: Bakari Ware MD, Chi Status: [facility] Study: Low Dose CT Lung Screening Date of Exam: 04/08/18 Exam# [id number] Ordering Dr: Bakari Ware MD STUDY: LOW [...] Ab Hylton DO at 21:43 EDT Tel [phone], Service support , CC: Bakari Ware MD Bed Bug Exterminator: Signed CBC W/DIFF, AUTOMATED Collected: 12/22/2017 Status: F Source: [place] 4:24 PM [facility] [...] Lymph 1.91 Performed By: #### L100.0100 #### [facility] [address] [place], [place], [address] VITAMIN D,25 HYDROXY Collected: 12/22/2017 Status: F Source: [place] 4:24 PM [facility] [...] (>250 nmol/L) Performed By: #### L506.1000 #### [facility] [address] [place], [place], [address] COMPREHENSIVE METABOLIC Collected: 12/22/2017 Status: F Source: [facility] 4:24 PM [facility] [...] 6 Performed By: #### L500.4050, L501.9520 #### [facility] [address] [place], [place], [address] THYROID STIM HORMONE Collected: 12/22/2017 Status: F Source: [place] (TSH) 4:24 PM [facility] REPOSITORY TYPE CODE TESTS RESULT OUT OF RANGE REFERENCE UNITS LAB L501.9520 0.358-3.74 uIU/mL Normal TSH 0.59 Performed By: #### L500.4050, L501.9520 #### [facility] [address] [place], [place], [address] CBC W/DIFF, AUTOMATED Collected: 09/23/2017 Status: F Source: [place] 2:43 PM [facility] [...] Lymph 2.11 Performed By: #### L100.0100 #### [facility] [address] [place], [place], [address] COMPREHENSIVE METABOLIC Collected: 09/23/2017 Status: F Source: [facility] 2:43 PM [facility] [...] 7 Performed By: #### L500.4050, L501.9520 #### [facility] [address] [facility] [place], [place], [address] THYROID STIM HORMONE Collected: 09/23/2017 Status: F Source: [place] (TSH) 2:43 PM [facility] REPOSITORY TYPE CODE TESTS RESULT OUT OF RANGE REFERENCE UNITS LAB L501.9520 0.358-3.74 uIU/mL Normal TSH 1.20 Performed By: #### L500.4050, L501.9520 #### [facility] [address] [place], [place], [address] VITAMIN D,25 HYDROXY Collected: 09/23/2017 Status: F [...] (>250 nmol/L) Performed By: #### L506.1000 #### [facility] [address] [place], [place], [address] BASIC METABOLIC Collected: 09/16/2017 Status: F Source: [...] GAP 7 Performed By: #### L500.2500 #### [facility] [address] [place], [address] Observed: 09/08/2017 Status: F Source: [place] CULTURE, URINE 11:55 AM [facility] REPOSITORY Urine Culture ORGANISM 1: Presumptive E. coli [place] Count >100,000 Presumptive E. coli: REACTION Amoxacillin/Clavulanic [...] <=20 S (NF) indicates non-formulary drug at [facility]. Approval by Infectious Disease Specialist required before non-formulary drugs may be ordered and/or dispensed. Performed By: #### M100.0650 #### [facility] [address] [place] [address]. [place], [place], [address] MODIFIED BARIUM Observed: 09/03/2017 Status: F Source: [place] SWALLOW STUDY 2:47 PM [facility] REPOSITORY [facility] Speech Pathology [address] [place] [address] Modified Barium Swallow Study MR#: [id number] Acct: [id number] Name: YADI WESTFALL Rep #: [id number] : 1945 71 From: Rashi Brasher M.A. CFY-JOINERY MACHINIST PRIMARY / SECONDARY DIAGNOSIS: dysphagia (R13.10) REFERRING [...] 1447 <Electronically signed by Rashi Brasher M.A., CFY-JOINERY MACHINIST> Date Rashi Brasher M.A., CFY-JOINERY MACHINIST Co-Signature Required for all Medicare patients Date/Time Co-Signature CC: SWALLOWING FUNCTION Observed: 09/03/2017 Status: F Source: [place] W/VIDEO 1:18 PM [facility] REPOSITORY [facility] Imaging Services [address] [place] [address] Swallowing Function w/Video MR#: [id number] Acct: [id number] Name: YADI WESTFALL Rep #: [id number] : 1945 F 71 From: Tyson Lim MD PCP: Bakari Ware MD, Chi Status: REG CLI Study: Swallowing Function w/Video Date of Exam: 09/03/17 Exam# [id number] Ordering Dr: Bakari Ware MD STUDY: SWALLOWING [...] Tyson Lim MD at 15:46 EST Tel [phone], Service support , CC: Bakari Ware MD Bed Bug Exterminator: Signed BASIC METABOLIC Collected: 09/01/2017 Status: F [...] GAP 10 Performed By: #### L500.2500 #### [facility] [address] [facility] [place], [address] VENOUS DUPLEX LOWER Observed: 08/25/2017 Status: F Source: [place] EXTREMITY 6:55 PM [facility] REPOSITORY [facility] Cardiovascular Services [address] [place] [address] Venous Duplex US - Dean Extrem 08/25/17 1454 MR#: [id number] Acct: [id number] Name: YADI WESTFALL Rep #: [id number] : 1945 71 From: Luiz Simon MD [...] Date Dictated: 08/25/17 1454 Date Transcribed: 08/25/171853 Bed Bug Exterminator: Signed NCS AND/OR EMG Observed: 08/18/2017 Status: F Source: [place] PATIENT 11:23 AM [facility] REPOSITORY [facility] Pulmonary Services/Neurology [address] [place] [address] MR#: [id number] Acct: [id number] Name: MARIJASHAMIKAYADI Rep #: [id number] : 1945 71 From: Musa Llamas MD Referring Dr: Becky Burrows NP Status: REG CLI Ordering Dr: Date: Location: [facility] Sex: F C NCS and/or EMG Patient [...] Date Dictated: 08/18/17 1119 Date Transcribed: 08/18/171118 Bed Bug Exterminator: NF Signed URINE DRUG SCREEN Collected: 07/28/2017 [...] Normal NEGATIVE Performed By: #### L505.5000 #### [facility] [address] [place], [address] MISCELLANEOUS LAB Collected: 07/28/2017 Status: F Source: [place] PROCEDURE 2:50 PM [facility] REPOSITORY Order Comment: Test(s) Ordered: [id number] RUN LOWEST TEST TYPE CODE TESTS RESULT OUT OF RANGE REFERENCE UNITS LAB L801.1541 Normal [facility] LAB TEST Result Comment: [id number] 6+OXYCODONE-BUND (ng/mL) DRUG RESULT SCREEN CUTOFF ____ Amphetamines,Urine Negative ng/mL 1000 Amphetamine test includes Amphetamine and Methamphetamine. Barbiturates Negative ng/mL 200 Benzodiazepines Negative ng/mL 200 Cannabinoid Negative ng/mL 20 Cocaine (Metab) Negative ng/mL 300 Opiates Negative ng/mL 300 Opiates test includes Codeine, Morphine, Hydromorphone, Hydrocodone. Oxycodone/Oxymorphone,Urine Negative ng/mL 300 Test includes Oxydodone and Oxymorphone. TESTING PERFORMED AT [facility]. ORIGINAL REPORT ON FILE IN LAB CONTAINS ADDITIONAL TEST SITE INFORMATION. Performed By: #### L801.1541 #### [facility] [address] [place], [address] LUMBAR SPINE 2 OR 3 Observed: 07/28/2017 Status: F Source: [place] VIEWS 2:14 PM [facility] REPOSITORY [facility] Imaging Services [address] [place] [address] Lumbar Spine 2 or 3 Views MR#: [id number] Acct: [id number] Name: YADI WESTFALL Rep #: [id number] : 1945 F 71 From: Yovana Healy MD PCP: Sophie Bradford MD Status: REG CLI Study: Lumbar Spine 2 or 3 Views Date of Exam: 07/28/17 Exam# [id number] Ordering Dr: Sarah Ladd MD STUDY: X-RAY [...] CC: Sarah Ladd MD; Sophie Bradford MD Bed Bug Exterminator: Signed URINALYSIS, COMPLETE Collected: 07/23/2017 Status: F [...] URINE SEEN Performed By: #### L400.0001 #### [facility] [place], [address] Observed: 07/23/2017 Status: F Source: [place] CULTURE, URINE 11:00 AM [facility] REPOSITORY Urine Culture ORGANISM 1: Presumptive E. coli [place] Count >100,000 Presumptive E. coli: REACTION Amoxacillin/Clavulanic [...] <=20 S (NF) indicates non-formulary drug at [facility]. Approval by Infectious Disease Specialist required before non-formulary drugs may be ordered and/or dispensed. Performed By: #### M100.0650 #### [facility] [address] [place], [address] OBSOLETE Observed: 07/21/2017 Status: COMPLETED Source: [place] 12:[address] [facility] REPOSITORY Refill (INTMWS) YADI WESTFALL ([id number]) 1945 F Date Time Provider Department 07/21/17 [...] Lift chair. Dx. I69.3 M21.37* COMPOUNDED PRESCRIPTION nursing home - diabetic ma* COMPOUNDED PRESCRIPTION Left [...] INVALID FOR* More... PAD (peripheral artery disease) ([facility]) [I73.9] INVALID FOR* Left foot drop [M21.372] INVALID FOR* Closed traumatic displaced fracture of base of *INVALID FOR* Left hemiparesis ([facility]) [G81.94] INVALID FOR* Abnormality of gait [R26.9] INVALID FOR* CVA, old, hemiparesis ([facility]) [I69.359] INVALID FOR* Encounter Status:Closed by NELL TURNER LPN on 07/21/17 ALLERGIES ALLERGIES DATE TYPE / CODE NAME / CODE REACTION SEVERITY SOURCE 06/08/2018 Drug promethazine Nausea Unknown [place] Allergy/416 HCl/[id number](NO [facility] [id number] ED CT) Repository ENCOUNTERS ENCOUNTERS ADMIT/DISCHARGE ACCOUNT ADMITTING ENCOUNTER LOCATION SOURCE NUMBER CLASS 06/22/2018/ [id number] Ambulatory [place] 8 5 [facility] ing:SDCRoom: Repository AC09 06/10/2018/ [id number] Muriel, Inpatient [place] [address] [place] Encounter [facility] ing:RURoom: Repository [id number]: 1 06/10/2018 [id number] Muriel Ambulatory BMSBuilding:B [place] [address] [place].[facility] Repository 06/08/2018/ [id number] [place], Ambulatory [place] [address] 6 [place] F [facility] ing:PCURoom: Repository [id number]: 1 06/08/2018 [id number] [place], Ambulatory BMSBuilding:B [place] 2 [place] Christina [place].[facility] Repository 06/08/2018 [id number] [place], Ambulatory BMSBuilding:B [place] [address] [place] Christina [place].[facility] Repository 06/08/2018 [id number] [place], Ambulatory BMSBuilding:B [place] 7 [place].[facility] Repository 06/08/2018/ [id number] Ambulatory BMSBuilding:W [place] 8 2 [facility] Repository 06/08/2018/ [id number] Ambulatory [place] 8 0 [facility] ing:SDCRoom: Repository AC09 05/27/2018 [id number] Ambulatory [place] 7 [facility] ing:LABSPEC Repository 04/19/2018 [id number] Ambulatory [place] 6 [facility] ing:LABSPEC Repository 04/14/2018 [id number] Ambulatory [place] 3 [facility] ing:RAD Repository 04/08/2018 [id number] Ambulatory [place] 8 [facility] ing:CT Repository 12/22/2017 [id number] Ambulatory [place] 8 [facility] ing:POLAB3 Repository 09/23/2017 [id number] Ambulatory [place] 3 [facility] ing:POLAB3 Repository 09/16/2017 [id number] Ambulatory [place] 0 [facility] ing:POLAB3 Repository 09/08/2017 [id number] Ambulatory [place] 9 [facility] ing:LAB.FUTUR Repository E 09/03/2017 [id number] Ambulatory [place] 6 [facility] ing:RAD Repository 09/01/2017 [id number] Ambulatory [place] 7 [facility] ing:POLAB3 Repository 08/25/2017 [id number] Ambulatory [place] 0 [facility] ing:CVS Repository 08/18/2017 [id number] Ambulatory [place] 9 [facility] ing:PSN Repository 07/28/2017 [id number] Ambulatory [place] 1 [facility] ing:RAD Repository 07/23/2017 [id number] Ambulatory [place] 1 [facility] ing:LABSPEC Repository 07/21/2017 [id number] Ambulatory [place] 6 [facility] ing:LAB.FUTUR Repository E PAYERS PAYERS ENCOUNTER GUARANTOR PAYER SUBSCRIBER SOURCE 06/22/2018 YADI S Primary YADI S [place] [id number] Insurance:[facility] DEVINOB: Community [place] [employer] [id number] Number: Repository [address]Bqs: (330) [id number] [phone] (HP) Date:[id number] [address] [place] [address] 89752JW: 06/22/2018 Secondary NOT GIVENUNK [place] Insurance:SELF PAY [facility]: Effective Repository Date:2018-04-15 06/10/2018 YADI S Primary YADI S [place] [id number] Insurance:[employer] C[employer] KARVONENDOB: Community [place] [employer] [id number] [place] Number: Repository 15[address]Lho: (330) [id number] [phone] (HP) Date:[id number] [address] [place] [address] 43416JX: 06/10/2018 Secondary NOT GIVENUNK [place] Insurance:SELF PAY [facility] Number: Effective Repository Date:2018-06-10 06/10/2018 YADI S Primary YADI S [place] [id number] Insurance:[employer] CARE KARVONENDOB: Community [place] [employer] [id number] Number: Repository [phone]: (330) [id number] [phone] (HP) Date:[id number] [address] [place] [address] 33915CF: 06/10/2018 Secondary NOT GIVENUNK [place] Insurance:SELF PAY [facility] Number: Effective Repository Date:2018-06-10 06/08/2018 YADI S Primary YADI S [place] [id number] Insurance:[employer] CARE KARVONENDOB: Community [place] [employer] [id number] [place] Number: Repository [phone]: (330) [id number] [phone] (HP) Date:5261-91-45CS [address] [place] [address]22[address]CM: 06/08/2018 Secondary NOT GIVENUNK [place] Insurance:SELF PAY [facility] Number: Effective Repository Date:2018-06-08 06/08/2018 YADI S Primary YADI S Savery [id number] Insurance:SUMMA CARE KARVONENDOB: Community [place] [id number] Number: Repository [address]Oma: 330 [id number] [phone] (HP) Date:2177-93-26FB [address] [place] [address]14[address]MP: 06/08/2018 Secondary NOT GIVENUNK [place] Insurance:SELF PAY [facility] Number: Effective Repository Date:2018-06-08 06/08/2018 YADI S Primary YADI S Sa[place] [id number] Insurance:SUMMA CARE KARVONENDOB: Community [place] [id number] Number: Repository [address]Jwy: 330 [id number] [phone] (HP) Date:8782-34-37CG [address] [place] [address] 43296MF: 06/08/2018 Secondary NOT GIVENUNK [place] Insurance:SELF PAY [facility] Number: Effective Repository Date:2018-06-08 06/08/2018 YADI S Primary YADI S [place] [id number] Insurance:SUMMA CARE KARVONENDOB: Community [place] [id number] [place] Number: Repository [id number]: (330 [id number] [phone] (HP) Date:0699-92-01IK [address] [place] [address] 68908BO: 06/08/2018 Secondary NOT GIVENUNK [place] Insurance:SELF PAY [facility] Number: Effective Repository Date:2018-06-08 06/08/2018 YADI S Primary YADI S [place] [id number] Insurance:SUMMA CARE KARVONENDOB: Community [place] [id number] [place] Number: Repository [address]Sve: 330 [id number] [phone] (HP) Date:7762-73-76JD [address] [facility] [address]AA: 06/08/2018 Secondary NOT GIVENUNK [place] Insurance:SELF PAY [facility] Effective Repository Date:2018-06-08 06/08/2018 YADI S Primary YADI S [place] [id number] Insurance:SUMMA CARE KARVONENDOB: Community [place] [id number] [place] Number: Repository [address]Bhn: (330 [id number] [phone] () Date:7725-09-87SA [address] [facility] [address]WH: 06/08/2018 Secondary NOT GIVENUNK [place] Insurance:SELF PAY [facility] Number: Effective Repository Date:2018-04-15 05/27/2018 YADI S Primary YADI S [place] [id number] Insurance:SUMMA CARE KARVONENDOB: Community [place] [id number] Number: Repository [id number]: (330 [id number] [phone] () Date:1035-13-21EN [address] [facility] [address]QO: 05/27/2018 Secondary NOT GIVENUNK [place] Insurance:SELF PAY [facility] Number: Effective Repository Date:2018-05-27 04/19/2018 YADI S Primary YADI S [place] [id number] Insurance:SUMMA CARE KARVONENDOB: Community [place] [id number] Number: Repository [address]Hiw: 330 [id number] [phone] () Date:1595-40-98OE [address] [facility] [address]XW: 04/19/2018 Secondary NOT GIVENUNK [place] Insurance:SELF PAY [facility] Number: Effective Repository Date:2018-04-19 04/14/2018 YADI S Primary YADI S [place] [id number] Insurance:SUMMA CARE KARVONENDOB: Community [place] [id number] Number: Repository [address]Uqg: (330) [id number] [phone] (HP) Date:8802-13-69GL [address] [address]OH: 04/14/2018 Secondary NOT GIVENUNK [place] Insurance:SELF PAY [facility] Number: Effective Repository Date:2018-04-14 04/08/2018 YADI S Primary YADI S [place] [id number] Insurance:SUMMA CARE KARVONENDOB: Community [place] [id number], [place] Number: Repository [id number]: (330) [id number] [phone] (HP) Date:9294-03-38BY [address], [place] [address]KQ: 04/08/2018 Secondary NOT GIVENUNK [place] Insurance:SELF PAY [facility] Number: Effective Repository Date:2018-04-05 12/22/2017 Yadi S Primary Yadi S [place] [id number] Insurance:SUMMA CARE KarvonenDOB: Community [place] MED[place]ARE[place] [id number][place] Number: Repository [address]Kvn: (330) [id number] [phone] (HP) Date:2325-83-55ZM [address] [address]RZ: 12/22/2017 Secondary NOT GIVENUNK [place] Insurance:SELF PAY [facility] Number: Effective Repository Date:2017-12-22 09/23/2017 Yadi S Primary Yadi S [place] [id number] Insurance:SUMMA CARE KarvonenDOB: Community [place] MED[place] [id number], [place] Number: Repository [address]Uow: (330 [id number] [phone] (HP) Date:3235-90-41FZ [address], [place] [address]SB: 09/23/2017 Secondary NOT GIVENUNK [place] Insurance:SELF PAY [facility] Number: Effective Repository Date:2017-09-23 09/16/2017 Yadi S Primary Yadi S [place] [id number] Insurance:SUMMA CARE KarvonenDOB: Community [place] MED[place] [id number], [place] Number: Repository [address]Knm: 330 [id number] [phone] () Date:0933-61-56WL [address]ITAL[facility], [place] [address]PX: 09/16/2017 Secondary NOT GIVENUNK [place] Insurance:SELF PAY [facility] Number: Effective Repository Date:2017-09-16 09/08/2017 Yadi S Primary Yadi S [place] [id number] Insurance:SUMMA CARE KarvonenDOB: Community [place] MED[place]ARE[place] [id number], [place] Number: Repository [address]Zzs: 330 [id number] [phone] () Date:3808-22-08FM [address] [facility] [address]FM: 09/08/2017 Secondary NOT GIVENUNK [place] Insurance:SELF PAY [facility] Effective Repository Date:2017-08-16 09/03/2017 Yadi S Primary Yadi S [place] [id number] Insurance:SUMMA CARE KarvonenDOB: Community [place] MED[place]ARE[place] [id number], [place] Number: Repository [address]Mvm: 330 [id number] [phone] () Date:7476-02-64JW [address] [place] [address]WY: 09/03/2017 Secondary NOT GIVENUNK [place] Insurance:SELF PAY [facility] Number: Effective Repository Date:2017-08-25 09/01/2017 Yadi S Primary Yadi S [place] [id number] Insurance:SUMMA CARE KarvonenDOB: Community [place] MED[place]ARE[place] [id number], [place] Number: Repository [address]Utt: (330 [id number] [phone] (HP) Date:0435-78-08MP [address] [address]HC: 09/01/2017 Secondary NOT GIVENUNK [place] Insurance:SELF PAY [facility] Number: Effective Repository Date:2017-09-01 08/25/2017 Yadi S Primary Yadi S [place] [id number] Insurance:SUMMA CARE KarvonenDOB: Community [place] MED[place]ARE[place] [id number], [place] Number: Repository [address]Rey: (330) [id number] [phone] (HP) Date:6629-68-85JC [address], [place] [address]CL: 08/25/2017 Secondary NOT GIVENUNK [place] Insurance:SELF PAY [facility] Number: Effective Repository Date:2017-08-25 08/18/2017 Yadi S Primary Yadi S [place] [id number] Insurance:SUMMA CARE KarvonenDOB: Community [place] MED[place]ARE[place] [id number], [place] Number: Repository [address]Ktu: (330 [id number] [phone] (HP) Date:5631-92-66XK [address], [place] [address]MC: 08/18/2017 Secondary NOT GIVENUNK [place] Insurance:SELF PAY [facility] Number: Effective Repository Date:2017-06-23 07/28/2017 Yadi S Primary Yadi S [place] [id number] Insurance:SUMMA CARE KarvonenDOB: Community [place] MEDICARE[place] [id number], [place] Number: Repository [address]Dcv: (330 [id number] [phone] (HP) Date:3962-78-20FO [address] [place]ITAL[place] [address]BU: 07/28/2017 Secondary NOT GIVENUNK [place] Insurance:SELF PAY [facility] Number: Effective Repository Date:2017-07-28 07/23/2017 Yadi Hogan Primary Yadi Hogan [place] [id number] [facility] KarvonenDOB: Community [place] MED[place]ARE[place] [id number], [place] Number: Repository [address]Xym: 330 [id number] [phone] () Date:5836-99-12IU [address]ITALJ[facility]culiar, [place] [address]UH: 07/23/2017 Secondary NOT GIVENUNK [place] Insurance:SELF PAY [facility] Number: Effective Repository Date:2017-07-23 07/21/2017 Yadi Hogan Primary NOT GIVENUNK [place] [id number] Insurance:SUMMA CARE [place] [facility] [place] Number: Effective Repository [address]Bbz: (330) Date:7859-48-92RG [phone] () 362[place]JOSUE[place], [place] [address]CG: 07/21/2017 Secondary NOT GIVENUNK [place] Insurance:SELF PAY [facility] Number: Effective Repository Date:2017-07-21
== END 2018-06-10 12:32 ==
LOC: ED 10:16 → PCU 11:46 → ED 06-09 10:44
PROVIDERS: Admitting Provider Family Medicine; Emergency Provider Emergency Medicine; Family Provider Family Medicine Geriatric Medicine; PCP Family Medicine Geriatric Medicine; Visit Provider Family Medicine
DX: R29.810 Facial weakness (principal); N32.81 Overactive bladder; R29.703 NIHSS score 3; N39.41 Urge incontinence; F32.9 Major depressive disorder, single episode, unspecified; I10 Essential (primary) hypertension; G47.30 Sleep apnea, unspecified; G20 Parkinson's disease; Z87.891 Personal history of nicotine dependence; Z79.2 Long term (current) use of antibiotics; Z79.84 Long term (current) use of oral hypoglycemic drugs; Z79.82 Long term (current) use of aspirin; Z79.02 Long term (current) use of antithrombotics/antiplatelets; Z79.899 Other long term (current) drug therapy; R47.1 Dysarthria and anarthria; I65.21 Occlusion and stenosis of right carotid artery; R47.81 Slurred speech; I69.354 Hemiplegia and hemiparesis following cerebral infarction affecting left non-dominant side; I45.10 Unspecified right bundle-branch block; M79.89 Other specified soft tissue disorders; E66.9 Obesity, unspecified; Z71.3 Dietary counseling and surveillance; Z68.36 Body mass index [BMI] 36.0-36.9, adult; E11.40 Type 2 diabetes mellitus with diabetic neuropathy, unspecified; F41.9 Anxiety disorder, unspecified; F03.90 Unspecified dementia, unspecified severity, without behavioral disturbance, psychotic disturbance, mood disturbance, and anxiety; N17.9 Acute kidney failure, unspecified
CPT/HCPCS: 64561; 64590; 36415; 70450; 70496; 70498; 71045; 72170; 76000; 80048; 80061; 82962; 84484; 85025; 85610; 85730; 93005; 93306; 93971; 96361; 96374; 97162; 97165; 97530; 97802; 99218; 99283; J7030; J7040; J7120; Q9957; Q9967; A4216; C1778; C8929; G0378; J2405

== ENCOUNTER 2018-06-10 17:41 | Inpatient (IN) | payer MEDICARE, SELFPAY ==
[2018-06-09 23:58] VITALS: BMI 36.1
[2018-06-10 18:17] VITALS: BMI 36.7
[2018-06-10 18:19] VITALS: BP 164/75; PULSE 93; RESP 20; TEMP 36.8; O2SAT 93
[2018-06-10 20:31] LABS: Bedside Glucose 306 mg/dL (70-110)
[2018-06-10] MEDS: Senna/Docusate Sodium 1 Tablet 2 TABLET PO (20:58)
[2018-06-10] MEDS: Atorvastatin Calcium 40 MG Tablet PO (20:58)
[2018-06-10] MEDS: Polyethylene Glycol 3350 17 GM PACKET PO (20:58)
[2018-06-10] MEDS: Baclofen 10 MG Tablet 20 MG PO (20:59)
[2018-06-10] MEDS: Memantine Hydrochloride 10 MG Tablet PO (20:59)
[2018-06-10] MEDS: Galantamine Hydrobromide 4 MG Tablet 12 MG PO (20:59)
[2018-06-10] MEDS: Escitalopram Oxalate 20 MG Tablet PO (20:59)
[2018-06-10] MEDS: Insulin Lispro 100 UNIT/ML INSULN.PEN SC (20:59)
[2018-06-10 21:06] VITALS: BP 172/84; PULSE 82; RESP 18; TEMP 36.8; O2SAT 93
[2018-06-10] MEDS: MELATONIN 3 MG TABLET PO (21:13)
[2018-06-11 06:44] VITALS: O2SAT 92
[2018-06-11] MEDS: Baclofen 10 MG Tablet 20 MG PO ×3 (06:54→20:20)
[2018-06-11 07:00] VITALS: BP 150/79; PULSE 69; RESP 17; TEMP 36.8; O2SAT 93
[2018-06-11 07:11] LABS: Bedside Glucose 206 mg/dL (70-110)
[2018-06-11 08:24] LABS: Absolute Lymphocyte Count 1.84 X10^3/ul (0.83-4.51); Basophil# 0.01 X10^3/uL; Basophil% 0.2 % (0-1); Eosinophil# 0.18 X10^3/uL; Eosinophils% 2.8 % (0-5); Hematocrit 38.8 % (37-47); Hemoglobin 12.7 g/dl (12.0-15.0); Lymphocyte # 1.84 X10^3/ul (4.0); Lymphocyte % 28.8 % (19-41); Mean Corp Hgb Conc 32.7 g/gl (32-36); Mean Corpuscular Hgb 29.4 pg (27.0-32.0); Mean Corpuscular Volume 89.8 fL (81-99); Mean Platelet Vol. 11.1 fl (6.2-12.0); Monocyte% 4.7 % (0-10); Neutrophil # 4.04 X10^3/uL (2.7-7.7); Neutrophil % 63.3 % (47-70); Platelet Count 191 K/mm3 (150-450); RBC Distribution Width CV 12.8 % (11.6-14.6); RBC Distribution Width SD 42.2 fl (35.1-43.9); Red Blood Count 4.32 M/mm3 (4.2-5.4); White Blood Count 6.4 K/mm3 (4.4-11.0)
[2018-06-11] MEDS: Glimepiride 1 MG Tablet PO (08:24)
[2018-06-11] MEDS: Insulin Lispro 100 UNIT/ML INSULN.PEN SC ×5 (08:24→22:58)
[2018-06-11] MEDS: Aspirin 81 MG TAB.CHEW PO (08:24)
[2018-06-11] MEDS: Senna/Docusate Sodium 1 Tablet 2 TABLET PO ×2 (08:24→20:24)
[2018-06-11] MEDS: Lisinopril 20 MG Tablet PO (08:25)
[2018-06-11] MEDS: Clopidogrel Bisulfate 75 MG Tablet PO (08:25)
[2018-06-11] MEDS: Polyethylene Glycol 3350 17 GM PACKET PO ×2 (08:25→20:20)
[2018-06-11] MEDS: Memantine Hydrochloride 10 MG Tablet PO ×2 (08:25→20:20)
[2018-06-11] MEDS: Galantamine Hydrobromide 4 MG Tablet 12 MG PO ×2 (08:25→20:19)
[2018-06-11] MEDS: Gabapentin 100 MG Capsule 200 MG PO ×3 (08:25→17:00)
[2018-06-11] MEDS: Enoxaparin 40 MG/0.4 ML Syringe SC (08:25)
[2018-06-11 08:26] LABS: POSITIVE COUNT NO; POSITIVE DIFFERENTIAL NO; POSITIVE MORPHOLOGY NO
--- NOTE | 2018-06-11 09:10 | PCM.PN.BLA ---
Progress Note urology in rehab after tia interstim device is on to help with bladder control so far she reports no improvement will increase to 2.3 program 4 on the interstim.
[2018-06-11 09:23] LABS: ALB/GLOB Ratio 0.8 RATIO (0.9-2.4); AST(SGOT) 19 U/L (15-37); Alanine Aminotransfer ALT/SGPT 23 U/L (13-56); Albumin, Serum 2.8 g/dL (3.2-5.0); Alkaline Phosphatase 52 U/L (45-117); Anion Gap 8 (5-15); BUN 22 mg/dL (7-18); BUN/Creat Ratio 24.9 RATIO (10-20); Calcium,Total 8.4 mg/dL (8.5-10.1); Chloride 101 mmol/L (98-107); Creatinine, Serum 0.88 mg/dL (0.55-1.02); EST Glomerular Filtration Rate 67 mL/min (>60); Est Glom Filt Rate - Afr Amer 81 mL/min (>60); Globulin 3.6 g/dL (2.2-4.2); Glucose 211 mg/dL (74-106); Potassium 3.5 mmol/L (3.5-5.1); Protein, Total 6.4 g/dL (6.4-8.2); Sodium Level 141 mmol/L (136-145)
--- NOTE | 2018-06-11 10:20 | PCM.PN.HOSP ---
Subjective: The patient is a 72 year old F who presents to the ER with a right facial droop and slurred speech after a bladder stimulation procedure by urology. She was last known normal at around 6 am for the procedure and close to 10 am her family noticed that in recovery after the procedure she had a rightsided facial droop and slurred speech. She had had a stroke about 7 years ago with left sided is symptoms and has residual left sided weakness. In the ER she had an NIH of 3 for the facial droop, dysarthria and RUE numbness. She had a CT head which was negative and CTA of the head and neck with a greater than 70% stenosis in the ROSA. She was monitored in the hospital and was requiring a 2 person assist to ambulate. Also she was unable to obtain an MRI because of the bladder stim lead that had been placed on the morning of admission. She was transferred to the inpatient rehab unit for further care. She is doing well at the moment without complaints. Vitals/I&O's: Vital Signs Temp Pulse Resp BP Pulse Ox 98.3 F 69 17 150/79 H 93 06/11/18 07:00 06/11/18 07:00 06/11/18 07:00 06/11/18 07:00 06/11/18 07:00 Oxygen Delivery Method Room Air Weight: 207 lb 3.752 oz Body Mass Index (BMI) 36.7 Finger Stick Blood Glucose 221 Intake and Output for Last 24 Hours 06/09/18 06/10/18 06/11/18 23:59 23:59 23:59 Intake Total 240 / 240 360 / 360 Output Total 250 / 250 Balance -10 / -10 360 / 360 General: Alert, Oriented x3, Cooperative, No apparent distress HEENT: Atraumatic, PERRLA, EOMI, Normocephalic Neck: Supple, No JVD Lungs: Clear to auscultation, Normal air movement, No rhonchi, No wheeze, No rales Cardiovascular: Regular rate, Regular Rhythm, Normal S1, Normal S2, No murmurs Abdomen: Soft, Non Tender, Non-Distended, No Hepato-splenomegaly Extremities: Non-pitting edema, Capillary Refill Less than 3 Seconds Skin: No rashes, No breakdown Neurological: Facial Droop - on the right, Sensory exam intact to light touch and pain, - - 4/5 strength on the LUE and LLE Psych/Mental Status: Normal Affect, Appropriate Laboratory Results 06/10/18 20:25: POC Glucose 306 H 06/11/18 07:08: POC Glucose 206 H 06/11/18 07:40: WBC 6.4, RBC 4.32, Hgb 12.7, Hct 38.8, MCV 89.8, MCH 29.4, MCHC 32.7, RDW 12.8, RDW Differential 42.2, Plt Count 191, MPV 11.1, Immature Gran % (Auto) 0.200, Neut % (Auto) 63.3, Lymph % (Auto) 28.8, Wallace % (Auto) 4.7, Eos % (Auto) 2.8, Baso % (Auto) 0.2, Absolute Neuts (auto) 4.0, Absolute Lymphs (auto) 1.84, Total Counted Not Reportable 06/11/18 07:40: Sodium 141, Potassium 3.5, Chloride 101, Carbon Dioxide 32.0, Anion Gap 8, BUN 22 H, Creatinine 0.88, Estim Creat Clear Calc 47.80, Est GFR (MDRD) Af Amer 81, Est GFR (MDRD) Non-Af 67, BUN/Creatinine Ratio 24.9 H, Glucose 211 H, Calcium 8.4 L, Total Bilirubin 0.60, AST 19, ALT 23, Alkaline Phosphatase 52, Total Protein 6.4, Albumin 2.8 L, Globulin 3.6, Albumin/Globulin Ratio 0.8 L Current Medications Acetaminophen (Tylenol) 500 mg PO Q8H PRN PRN PRN Reason: PAIN Aspirin (Aspirin, Baby) 81 mg PO DAILY@0800 [facility] Last Admin: 06/11/18 08:24 Dose: 81 mg Atorvastatin Calcium (Lipitor) 40 mg PO QHS [facility] Last Admin: 06/10/18 20:58 Dose: 40 mg Baclofen (Lioresal) 20 mg PO TID [facility] Last Admin: 06/11/18 06:54 Dose: 20 mg Bisacodyl (Dulcolax) 10 mg RECTAL .PRN X 1 PRN PRN Reason: Constipation Clopidogrel Bisulfate (Plavix) 75 mg PO DAILY [facility] Last Admin: 06/11/18 08:25 Dose: 75 mg Enoxaparin Sodium (Lovenox) 40 mg SC DAILY [facility] Last Admin: 06/11/18 08:25 Dose: 40 mg Escitalopram Oxalate (Lexapro) 20 mg PO QHS [facility] Last Admin: 06/10/18 20:59 Dose: 20 mg Gabapentin (Neurontin) 200 mg PO TIDCM [facility] Last Admin: 06/11/18 08:25 Dose: 200 mg Galantamine Hydrobromide (Razadyne) 12 mg PO BID [facility] Last Admin: 06/11/18 08:25 Dose: 12 mg Glimepiride (Amaryl) 1 mg PO DAILY@0800 [facility] Last Admin: 06/11/18 08:24 Dose: 1 mg Insulin Human Lispro (Humalog Kwikpen (Bkc)) 0 unit SC [facility]; Protocol Last Admin: 06/11/18 08:24 Dose: 2 u Lisinopril (Zestril) 20 mg PO DAILY [facility] Last Admin: 06/11/18 08:25 Dose: 20 mg Magnesium Hydroxide (Milk Of Magnesia) 30 ml PO .PRN X 1 PRN PRN Reason: Constipation Melatonin (Melatonin) 3 mg PO QHS [facility] Last Admin: 06/10/18 21:13 Dose: 3 mg Memantine (Namenda) 10 mg PO BID [facility] Last Admin: 06/11/18 08:25 Dose: 10 mg Polyethylene Glycol (Miralax) 17 gm PO BID [facility] Last Admin: 06/11/18 08:25 Dose: 17 gm Senna/Docusate Sodium (Senokot-S, Courtney-Colace) 2 tablet PO BID [facility] Last Admin: 06/11/18 08:24 Dose: 2 tablet Medical Necessity - Tobacco Use Smoking Status: Former smoker Assessment/Plan All Active Problems UTI (urinary tract infection) (Acute) Difficulty walking (Acute) mechanical fall (Acute) CVA (cerebral infarction) (Acute) Weakness (Acute) Left hemiparesis (Acute) Confusion (Acute) 1. CVA/ROSA stenosis of 70%/Debility and weakness, inability to complete ADLs - Left sided deficits are not new - c/w asa/plavix and statin. She has pain with the statin so cannot increase - Echo with normal EF and grade 2 diastolic dysfunction - No MRI given leads for the bladder stimulator, will repeat CT head in the am - She will need outpatient follow-up for her R ICA stenosis - c/w with therapy since she was a two person assist in the hospital 2. Overactive bladder - had procedure with interstim placement yesterday - Precluding MRI - Appreciate urology clearance to resume antiplatelets 3. HTN/HLD - c/w lisinopril and statin - stable, lipid panel in the am 4. Dementia - stable - c/w home medications 5. Depression - stable - c/w lexapro 6. DM2 - c/w jam medication regimen DVT: SCDs Code Visit Inpatient E&M: 19032 [facility] Hosp L3
--- NOTE | 2018-06-11 10:24 | PN_ITS ---
Subjective: The patient is a 72 year old F who presents to the ER with a right facial droop and slurred speech after a bladder stimulation procedure by urology. She was last known normal at around 6 am for the procedure and close to 10 am her family noticed that in recovery after the procedure she had a rightsided facial droop and slurred speech. She had had a stroke about 7 years ago with left sided is symptoms and has residual left sided weakness. In the ER she had an NIH of 3 for the facial droop, dysarthria and RUE numbness. She had a CT head which was negative and CTA of the head and neck with a greater than 70% stenosis in the ROSA. She was monitored in the hospital and was requiring a 2 person assist to ambulate. Also she was unable to obtain an MRI because of the bladder stim lead that had been placed on the morning of admission. She was transferred to the inpatient rehab unit for further care. She is doing well at the moment without complaints. Vitals/I&O's: Vital Signs Temp Pulse Resp BP Pulse Ox 98.3 F 69 17 150/79 H 93 06/11/18 07:00 06/11/18 07:00 06/11/18 07:00 06/11/18 07:00 06/11/18 07:00 Oxygen Delivery Method Room Air Weight: 207 lb 3.752 oz Body Mass Index (BMI) 36.7 Finger Stick Blood Glucose 221 Intake and Output for Last 24 Hours 06/09/18 06/10/18 06/11/18 23:59 23:59 23:59 Intake Total 240 / 240 360 / 360 Output Total 250 / 250 Balance -10 / -10 360 / 360 General: Alert, Oriented x3, Cooperative, No apparent distress HEENT: Atraumatic, PERRLA, EOMI, Normocephalic Neck: Supple, No JVD Lungs: Clear to auscultation, Normal air movement, No rhonchi, No wheeze, No rales Cardiovascular: Regular rate, Regular Rhythm, Normal S1, Normal S2, No murmurs Abdomen: Soft, Non Tender, Non-Distended, No Hepato-splenomegaly Extremities: Non-pitting edema, Capillary Refill Less than 3 Seconds Skin: No rashes, No breakdown Neurological: Facial Droop - on the right, Sensory exam intact to light touch and pain, - - 4/5 strength on the LUE and LLE Psych/Mental Status: Normal Affect, Appropriate Laboratory Results 06/10/18 20:25: POC Glucose 306 H 06/11/18 07:08: POC Glucose 206 H 06/11/18 07:40: WBC 6.4, RBC 4.32, Hgb 12.7, Hct 38.8, MCV 89.8, MCH 29.4, MCHC 32.7, RDW 12.8, RDW Differential 42.2, Plt Count 191, MPV 11.1, Immature Gran % (Auto) 0.200, Neut % (Auto) 63.3, Lymph % (Auto) 28.8, [place] % (Auto) 4.7, Eos % (Auto) 2.8, Baso % (Auto) 0.2, Absolute Neuts (auto) 4.0, Absolute Lymphs (auto) 1.84, Total Counted Not Reportable 06/11/18 07:40: Sodium 141, Potassium 3.5, Chloride 101, Carbon Dioxide 32.0, Anion Gap 8, BUN 22 H, Creatinine 0.88, Estim Creat Clear Calc 47.80, Est GFR (MDRD) Af Amer 81, Est GFR (MDRD) Non-Af 67, BUN/Creatinine Ratio 24.9 H, Glucose 211 H, Calcium 8.4 L, Total Bilirubin 0.60, AST 19, ALT 23, Alkaline Phosphatase 52, Total Protein 6.4, Albumin 2.8 L, Globulin 3.6, Albumin/Globulin Ratio 0.8 L Current Medications Acetaminophen (Tylenol) 500 mg PO Q8H PRN PRN PRN Reason: PAIN Aspirin (Aspirin, Baby) 81 mg PO DAILY@0800 [facility] Last Admin: 06/11/18 08:24 Dose: 81 mg Atorvastatin Calcium (Lipitor) 40 mg PO QHS [facility] Last Admin: 06/10/18 20:58 Dose: 40 mg Baclofen (Lioresal) 20 mg PO TID [facility] Last Admin: 06/11/18 06:54 Dose: 20 mg Bisacodyl (Dulcolax) 10 mg RECTAL .PRN X 1 PRN PRN Reason: Constipation Clopidogrel Bisulfate (Plavix) 75 mg PO DAILY [facility] Last Admin: 06/11/18 08:25 Dose: 75 mg Enoxaparin Sodium (Lovenox) 40 mg SC DAILY [facility] Last Admin: 06/11/18 08:25 Dose: 40 mg Escitalopram Oxalate (Lexapro) 20 mg PO QHS [facility] Last Admin: 06/10/18 20:59 Dose: 20 mg Gabapentin (Neurontin) 200 mg PO TIDCM [facility] Last Admin: 06/11/18 08:25 Dose: 200 mg Galantamine Hydrobromide (Razadyne) 12 mg PO BID [facility] Last Admin: 06/11/18 08:25 Dose: 12 mg Glimepiride (Amaryl) 1 mg PO DAILY@0800 [facility] Last Admin: 06/11/18 08:24 Dose: 1 mg Insulin Human Lispro (Humalog Kwikpen (Bkc)) 0 unit SC [facility]; Protocol Last Admin: 06/11/18 08:24 Dose: 2 u Lisinopril (Zestril) 20 mg PO DAILY [facility] Last Admin: 06/11/18 08:25 Dose: 20 mg Magnesium Hydroxide (Milk Of Magnesia) 30 ml PO .PRN X 1 PRN PRN Reason: Constipation Melatonin (Melatonin) 3 mg PO QHS [facility] Last Admin: 06/10/18 21:13 Dose: 3 mg Memantine (Namenda) 10 mg PO BID [facility] Last Admin: 06/11/18 08:25 Dose: 10 mg Polyethylene Glycol (Miralax) 17 gm PO BID [facility] Last Admin: 06/11/18 08:25 Dose: 17 gm Senna/Docusate Sodium (Senokot-S, Courtney-Colace) 2 tablet PO BID [facility] Last Admin: 06/11/18 08:24 Dose: 2 tablet Medical Necessity - Tobacco Use Smoking Status: Former smoker Assessment/Plan All Active Problems UTI (urinary tract infection) (Acute) Difficulty walking (Acute) mechanical fall (Acute) CVA (cerebral infarction) (Acute) Weakness (Acute) Left hemiparesis (Acute) Confusion (Acute) 1. CVA/ROSA stenosis of 70%/Debility and weakness, inability to complete ADLs - Left sided deficits are not new - c/w asa/plavix and statin. She has pain with the statin so cannot increase - Echo with normal EF and grade 2 diastolic dysfunction - No MRI given leads for the bladder stimulator, will repeat CT head in the am - She will need outpatient follow-up for her R ICA stenosis - c/w with therapy since she was a two person assist in the hospital 2. Overactive bladder - had procedure with interstim placement yesterday - Precluding MRI - Appreciate urology clearance to resume antiplatelets 3. HTN/HLD - c/w lisinopril and statin - stable, lipid panel in the am 4. Dementia - stable - c/w home medications 5. Depression - stable - c/w lexapro 6. DM2 - c/w jam medication regimen DVT: SCDs Code Visit Inpatient E&M: 81259 [facility] Hosp L3
--- NOTE | 2018-06-11 10:50 | VDUE_ITS ---
Reason For Study: LUE swelling Left Proximal Left jugular vein is spontaneous, widely patent, phasic, with no intraluminal echogenicity noted. Left subclavian vein is spontaneous, widely patent, phasic, with no intraluminal echogenicity noted. Left Arm Left axillary vein is spontaneous, patent, phasic, competent, compressible and demonstrates augmentation. Left brachial vein is compressible. Left cephalic vein is compressible. Left basilic vein is compressible. Left Lower Arm Left radial vein is compressible. Left ulnar vein is compressible. Interpretation Summary Deep veins of the left upper extremity are patent and compressible segmentally. There is no evidence of deep vein thrombosis. The superficial veins of the left upper extremity, the basilic and cephalic veins, are patent and compressible. There is no evidence of left upper extremity superficial thrombophlebitis involving the veins imaged. Ordering Physician: Becky Burrows Referring Physician: Bakari Ware Chi Performed By: Lorrie Orellana, DAVID, RVT ?
[2018-06-11 11:46] LABS: Bedside Glucose 306 mg/dL (70-110)
--- NOTE | 2018-06-11 11:58 | NURSING ---
pt with only one small amt of urine mixed with large amount of stool in 6 hours. bladder scanned for 39ml. Dr. Howard paged
--- NOTE | 2018-06-11 16:20 | NURSING ---
bladder scanned after large incontinence of urine
[2018-06-11 17:25] LABS: Bedside Glucose 220 mg/dL (70-110)
[2018-06-11 20:06] VITALS: BP 172/94; PULSE 67; RESP 18; TEMP 36.8; O2SAT 95
[2018-06-11 20:16] VITALS: BP 165/72; PULSE 70; RESP 18; O2SAT 93
[2018-06-11] MEDS: Atorvastatin Calcium 40 MG Tablet PO (20:20)
[2018-06-11] MEDS: Escitalopram Oxalate 20 MG Tablet PO (20:20)
[2018-06-11] MEDS: MELATONIN 3 MG TABLET PO (20:20)
--- NOTE | 2018-06-11 20:24 | REHABEVAL_ITS ---
Admission Information Status Changes from Prescreening?: No changes Identified Actual Problem List:: Mobility Impaired, Self Care Deficit, Diabetes, Hyperglycemia, BP, Hypertension Potential Problem List:: DVT, Bleeding, Infection, UTI, Aspiration, Falls, Skin Integrity, Depression Risk of Complications DVT: LMWH, KATHRIN Hose, Sequential Compression Device Bleeding: Monitor Lab Values, Nursing to Teach Precautions for anti-coagulation therapy., Wound, if applicable, to be assessed every shift., Stroke patients assessed for lethargy or change in status. Infection: Clinical Staff to Monitor for S/S of infection:, S/S of infection include fever, redness, warmth, etc. Urinary Tract Infection: Monitor for frequency, burning, discomfort, or incontinence., Nursing will obtain urine sample for urinalysis and C&S when ordered. Aspiration: Clinical staff will monitor for coughing, drooling, congestion., Speech will evaluate swallowing and dsyphasia., Nursing will monitor patient swallowing during meals. Falls: Patient will be evaluated for Fall Precautions, Patient will be placed on Fall Precautions as indicated per protocol. Skin Breakdown: Nursing will assess skin daily using assessment tool., Nursing will place on Skin Breakdown Precautions as indicated. Pain: Clinical staff will assess patient's pain level per protocol., Medications will be given, if needed, and the pain level reassessed., Other methods: Massage, distraction, decrease stimulus, etc. used PRN. Plan of Care Patient requires physician specializing in physical medicine and rehab oversight to provide close medical supervision of rehab issues including: Pain Management, Sleep Problems, Bowel and Bladder, Medical and co-morbidity Management, DVT prophylaxis, Rehabilitation Leadership, Coordination of treatment team Patient needs Physical Therapy: For a minimum of 1 hour, At least 5 out of 7 days Patient needs Physical Therapy to improve:: Mobility, Mobility, Mobility, Strengthening, Transfers, Stretching, ROM, Endurance, Stairs, Gait, Balance Patient needs Occupational Therapy: For a minimum of 1 hour, At least 5 out of 7 days Patient needs Occupational Therapy to improve ADL's incl.: Eating, Grooming, Bathing, Dressing, Toileting, Toilet transfers, Community Reintegration, Higher functioning activities, Household tasks, Adaptive Equipment, Splinting, Other activities as determined Patient requires speech therapy: For a minimum of 1 hour, At least 5 out of 7 days Patient requires speech therapy for: Swallowing, Cognition, Language Skills, Compensatory Strategies Patient requires 24/7 Rehabilitation Nursing for: Pain Issues, Identifying and preventing risk factors, Monitoring and reporting current medical conditions, Assisting with ambulation, transfer, and all ADL's, Teaching patients about disease process and medications, Family teaching, Providing safe environment, Bowel and Bladder Issues, Skin integrity, Medication Management Patient needs Repair Cameraman/ Case Management for: Discharge Planning, Arranging Home Equipment or Services, Family Interventions Patient needs Dietary and Nutrition Services for: Adequate Nutrition, Nutritional Supplements, Nutritional Education Goals Patient will remain: free from falls, or injury at time of discharge. Patient will perform bed mobility at: MOD I level of assist. Patient will complete transfers from bed to chair at: MOD I level of assist. Patient will ambulate: 100 feet, with MOD I assist, with LRD Patient will complete upper body dressing at: MOD I level of assist. Patient will complete lower body dressing at: MOD I level of assist. Patient will complete toileting at: MOD I level of assist. Patient will perform bathing at: MOD I level of assist. Patient will complete grooming at: MOD I level of assist. Patient will complete home management skills at: MOD I level of assist. Patient will achieve: 12 stairs, at MOD I assist Patient will have pain level of: of 3 or less Patient's skin will: remain intact, free from infection. Patient will receive: adequate nutrition. Discharge Planning Pt Prognosis for Sig. Practical Improv. w/in Reasonable Time: Good Estimated Length of stay (days): 16 Anticipated D/C Destination: Home
--- NOTE | 2018-06-11 20:24 | PCM.HP.STD ---
Problem List (1) CVA (cerebral infarction) Status: Chronic (2) Left hemiparesis Status: Acute (3) Depression Status: Chronic (4) Diabetic neuropathy Status: Chronic (5) Hypertension Status: Chronic (6) Physical debility Status: Acute (7) Stroke Status: Chronic (8) Type 2 diabetes mellitus Status: Chronic History of Present Illness Date of Admission: 06/11/18 The patient is a 72 year old CF with PMH HTN, HLD, DM, DM neuropathy H/O stroke with residual left leg weakness, Dementia, depression admitted to [facility] IP with debility s/p TIA following bladder stimulator placement, for > 3 hrs therapy daily, with the aim of returning back home at or near her prior level of functional independence. Patient was admitted to [facility] with right facial droop and slurred speech on 06/08/18 following bladder stimulator placement by Dr. Brito on 06/08/18, had NIHSS of 3 per ED documentation, was not a tpa candidate per documentation, had unremarkable CT head, CTA head/neck showed right ICA 70% stenosis and Left ICA < 50% stenosis, TTE showed EF 65%, with normal LA size, MRI brain could not be done due to bladder stimulator, LDL was 32. Has been on ASA/Plavix and Lipitor at baseline since her last stroke. Per patient she lives with her daughter and daughter's BF, uses walker to ambulate, does not drive, has 2 steps going into the house, does not use the basement or the 2nd floor. [] Past Medical History Past Medical History (Chronic Problems): Chronic Problems Type 2 diabetes mellitus (Chronic) Hypertension (Chronic) Diabetic neuropathy (Chronic) Depression (Chronic) Obesity (Chronic) CVA (cerebral infarction) (Chronic) Tobacco abuse (Chronic) Stroke (Chronic) Allergies promethazine HCl [From Phenergan] Adverse Reaction (Verified 06/08/18 10:32) Nausea Home Medications: Ambulatory Orders Medication Instructions Recorded Escitalopram Oxalate [Lexapro] 20 mg PO QHS 06/14/17 Gabapentin [Neurontin] 200 mg PO TIDCM 06/14/17 Baclofen 20 mg PO TID 06/01/18 Galantamine HBr [Galantamine ER] 24 mg PO DAILY 06/01/18 Memantine HCl 10 mg PO BID 06/08/18 Acetaminophen [Tylenol] 500 mg PO PRN 06/10/18 Aspirin [Aspirin, Baby] 81 mg PO DAILY@0800 06/10/18 Atorvastatin Calcium [Lipitor] 40 mg PO QHS 06/10/18 Clopidogrel Bisulfate [Plavix] 75 mg PO DAILY 06/10/18 Glimepiride [Amaryl] 1 mg PO DAILY 06/10/18 Lisinopril [Zestril] 20 mg PO DAILY 06/10/18 Surgical History: adenoidectomy, appendectomy, - - lumbar herniated disk surgery Psychiatric History: Anxiety - Patient complains of anxiety symptoms but does not take any medications 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 PATIENT TRANSPORTATION DRIVER history Lives: With Family Smoking Status: Former smoker Alcohol: None Drugs: None - *Family History Maternal History Items: Cancer, Hypertension, - Paternal History Items: - Sibling History Items: No pertinent history Review of Systems Constitutional: Reports: - - complete ROS negative except as documented in HPI VTE Information - Inpt Only VTE Present on Admission: No VTE Mechan Device Prophylaxis: SCD's, Knee High KATHRIN Hose VTE Pharm Prophylaxis ordered?: Yes - Physical Exam General: Alert HEENT: Normocephalic Neck: Supple Lungs: Normal air movement Cardiovascular: Normal S1, Normal S2 Abdomen: Bowel Sounds Present Extremities: No cyanosis Neurological: Cranial nerves II-XII grossly intact Psych/Mental Status: Normal Affect Vital Signs Temp Pulse Resp BP Pulse Ox 98.2 F 70 18 165/72 H 93 06/11/18 20:06 06/11/18 20:16 06/11/18 20:16 06/11/18 20:16 06/11/18 20:16 Oxygen Delivery Method Room Air Weight: 94 kg Body Mass Index (BMI) 36.7 Finger Stick Blood Glucose 221 Intake and Output for Last 24 Hours 06/09/18 06/10/18 06/11/18 23:59 23:59 23:59 Intake Total 240 / 240 800 / 800 Output Total 250 / 250 Balance -10 / -10 800 / 800 Laboratory Tests Past 24 Hrs 06/11/18 06/11/18 07:40 07:40 WBC 6.4 RBC 4.32 Hgb 12.7 Hct 38.8 MCV 89.8 MCH 29.4 MCHC 32.7 RDW 12.8 RDW Differential 42.2 Plt Count 191 MPV 11.1 Immature Gran % (Auto) 0.200 Neut % (Auto) 63.3 Lymph % (Auto) 28.8 [place] % (Auto) 4.7 Eos % (Auto) 2.8 Baso % (Auto) 0.2 Absolute Neuts (auto) 4.0 Absolute Lymphs (auto) 1.84 Total Counted Not Reportable Sodium 141 Potassium 3.5 Chloride 101 Carbon Dioxide 32.0 Anion Gap 8 BUN 22 H Creatinine 0.88 Estim Creat Clear Calc 47.80 Est GFR (MDRD) Af Amer 81 Est GFR (MDRD) Non-Af 67 BUN/Creatinine Ratio 24.9 H Glucose 211 H Calcium 8.4 L Total Bilirubin 0.60 AST 19 ALT 23 Alkaline Phosphatase 52 Total Protein 6.4 Albumin 2.8 L Globulin 3.6 Albumin/Globulin Ratio 0.8 L POC Glucose 06/11/18 06/11/18 06/11/18 16:59 11:41 07:08 POC Glucose 220 H 306 H 206 H 06/10/18 20:25 POC Glucose 306 H Assessment/Plan All Active Problems UTI (urinary tract infection) (Acute) Difficulty walking (Acute) mechanical fall (Acute) Physical debility (Acute) Weakness (Acute) Left hemiparesis (Acute) Confusion (Acute) The patient is a 72 year old CF with PMH HTN, HLD, DM, DM neuropathy H/O stroke with residual left leg weakness, Dementia, depression admitted to [facility] IP RU with debility s/p TIA following bladder stimulator placement, for > 3 hrs therapy daily, with the aim of returning back home at or near her prior level of functional independence. Patient was admitted to [facility] with right facial droop and slurred speech on 06/08/18 following bladder stimulator placement by Dr. Brito on 06/08/18, had NIHSS of 3 per ED documentation, was not a tpa candidate per documentation, had unremarkable CT head, CTA head/neck showed right ICA 70% stenosis and Left ICA < 50% stenosis, TTE showed EF 65%, with normal LA size, MRI brain could not be done due to bladder stimulator, LDL was 32. Has been on ASA/Plavix and Lipitor at baseline since her last stroke. Per patient she lives with her daughter and daughter's BF, uses walker to ambulate, does not drive, has 2 steps going into the house, does not use the basement or the 2nd floor.. Plan -PT for gait stability -OT for ADLs -ST for speech, swallow evaluation and cognitive evaluation. -Analgesics as needed -Bowel protocol -Recent TIA/H/O stroke- on ASA/Plavix and Lipitor, ASA/Plavix was restarted during inpatient hospitalization after urology clearance and per hospitalist recommendations. No bleeding documented, tolerating medication well -Right ICA stenosis of >70% on CTA neck, recommend Vascular surgery consult. -HTN- on Lisinopril, uncontrolled HTN, will add Amlodipine 5 mg PO once daily -HLD- on Lipitor -DM- on Glimepiride, and insulin sliding scale, need better control, will defer to hospitalist -DM neuropathy- on Gabapentin -Has B/L LE swelling- LE venous Doppler reported negative on 06/08/18 -Dementia- on Galantamine and Namenda -Depression- on Lexapro -Fall precautions -DVT prophylaxis- on Lovenox, started after urology clearance from Dr. Brito -Further medical management per hospitalist recommendations Code Visit Inpatient E&M: 54783 Init Hosp L3
[2018-06-11 21:00] LABS: Bedside Glucose 228 mg/dL (70-110)
[2018-06-11 23:18] VITALS: BP 143/73; PULSE 62
[2018-06-11] MEDS: Lisinopril 10 MG Tablet PO (23:18)
[2018-06-11 23:31] LABS: Bedside Glucose 212 mg/dL (70-110)
[2018-06-12] MEDS: Baclofen 10 MG Tablet 20 MG PO ×3 (05:45→20:19)
[2018-06-12 06:43] VITALS: O2SAT 88
[2018-06-12 06:46] LABS: Bedside Glucose 156 mg/dL (70-110)
[2018-06-12 08:02] VITALS: BP 163/85; PULSE 67; RESP 18; TEMP 36.5; O2SAT 93
[2018-06-12] MEDS: Galantamine Hydrobromide 4 MG Tablet 12 MG PO ×2 (08:37→20:19)
[2018-06-12] MEDS: Clopidogrel Bisulfate 75 MG Tablet PO (08:37)
[2018-06-12] MEDS: Lisinopril 20 MG Tablet PO (08:37)
[2018-06-12] MEDS: Glimepiride 2 MG Tablet PO (08:38)
[2018-06-12] MEDS: Memantine Hydrochloride 10 MG Tablet PO ×2 (08:38→20:19)
[2018-06-12] MEDS: amLODIPine 5 MG Tablet PO (08:38)
[2018-06-12] MEDS: Aspirin 81 MG TAB.CHEW PO (08:38)
[2018-06-12] MEDS: Gabapentin 100 MG Capsule 200 MG PO ×3 (08:38→16:32)
[2018-06-12] MEDS: Insulin Lispro 100 UNIT/ML INSULN.PEN SC ×4 (08:39→20:20)
[2018-06-12] MEDS: Enoxaparin 40 MG/0.4 ML Syringe SC (08:39)
[2018-06-12 12:11] LABS: Bedside Glucose 194 mg/dL (70-110)
[2018-06-12 16:40] LABS: Bedside Glucose 187 mg/dL (70-110)
[2018-06-12 20:17] VITALS: BP 152/84; PULSE 67; RESP 18; TEMP 36.8; O2SAT 94
[2018-06-12] MEDS: Escitalopram Oxalate 20 MG Tablet PO (20:19)
[2018-06-12] MEDS: MELATONIN 3 MG TABLET PO (20:19)
[2018-06-12 21:15] LABS: Bedside Glucose 201 mg/dL (70-110)
[2018-06-12] MEDS: Acetaminophen 500 MG Tablet PO (21:15)
[2018-06-12] MEDS: Atorvastatin Calcium 40 MG Tablet PO (21:56)
--- NOTE | 2018-06-12 23:34 | NURSING ---
[place] bath given tonight instead of shower due to pt's bladder stimulator on low back
[2018-06-13] MEDS: Baclofen 10 MG Tablet 20 MG PO ×3 (05:33→21:37)
[2018-06-13 06:52] VITALS: O2SAT 92
[2018-06-13 07:00] VITALS: BP 131/71; PULSE 67; RESP 18; TEMP 36.7; O2SAT 92
[2018-06-13 07:31] LABS: Bedside Glucose 169 mg/dL (70-110)
[2018-06-13] MEDS: Insulin Lispro 100 UNIT/ML INSULN.PEN SC ×3 (08:19→22:01)
[2018-06-13] MEDS: Clopidogrel Bisulfate 75 MG Tablet PO (08:20)
[2018-06-13] MEDS: Galantamine Hydrobromide 4 MG Tablet 12 MG PO ×2 (08:20→21:37)
[2018-06-13] MEDS: Glimepiride 2 MG Tablet PO (08:20)
[2018-06-13] MEDS: amLODIPine 5 MG Tablet PO (08:20)
[2018-06-13] MEDS: Gabapentin 100 MG Capsule 200 MG PO ×3 (08:20→17:54)
[2018-06-13] MEDS: Lisinopril 20 MG Tablet PO (08:20)
[2018-06-13] MEDS: Aspirin 81 MG TAB.CHEW PO (08:20)
[2018-06-13] MEDS: Enoxaparin 40 MG/0.4 ML Syringe SC (08:21)
[2018-06-13] MEDS: Memantine Hydrochloride 10 MG Tablet PO ×2 (08:21→21:37)
--- NOTE | 2018-06-13 10:43 | PCM.PN.NEU ---
Subjective: Patient seen and examined. Nursing noted swelling in her left arm and leg, which is new per patient. Patient did have a Bladder stimulator placed last week, will check Doppler or the left side both upper and lower extremity. Otherwise patient is tolerating therapy, no issues with GI/. - Physical Exam General: Alert, Oriented x3, Cooperative HEENT: Atraumatic, PERRLA, EOMI, Normocephalic Neck: Supple, No JVD, Negative Carotid Bruits Lungs: Clear to auscultation, Normal air movement Cardiovascular: Regular rate, No murmurs Abdomen: Bowel Sounds Present, Soft, Non Tender Extremities: No edema, Capillary Refill Less than 3 Seconds Skin: No rashes, No breakdown Musculoskeletal: No Tenderness to Palpation of Joints or Extremities Neurological: Cranial nerves II-XII grossly intact Psych/Mental Status: Normal Affect, Appropriate, Alert and oriented to time, place, person, mood and affect Vital Signs Temp Pulse Resp BP Pulse Ox 98.1 F 67 18 131/71 H 92 06/13/18 07:00 06/13/18 07:00 06/13/18 07:00 06/13/18 07:00 06/13/18 07:00 Oxygen Delivery Method Room Air Weight: 94 kg Body Mass Index (BMI) 36.7 Finger Stick Blood Glucose 221 Intake and Output for Last 24 Hours 06/11/18 06/12/18 06/13/18 23:59 23:59 23:59 Intake Total 800 / 800 200 / 200 240 / 240 Balance 800 / 800 200 / 200 240 / 240 POC Glucose 06/13/18 06/12/18 06/12/18 06:31 20:16 16:31 POC Glucose 169 H 201 H 187 H 06/12/18 12:06 POC Glucose 194 H Active Medications Acetaminophen (Tylenol) 500 mg PO Q8H PRN PRN PRN Reason: PAIN Last Admin: 06/12/18 21:15 Dose: 500 mg Amlodipine Besylate (Norvasc) 5 mg PO DAILY [facility] Last Admin: 06/13/18 08:20 Dose: 5 mg Aspirin (Aspirin, Baby) 81 mg PO DAILY@0800 [facility] Last Admin: 06/13/18 08:20 Dose: 81 mg Atorvastatin Calcium (Lipitor) 40 mg PO QHS [facility] Last Admin: 06/12/18 21:56 Dose: 40 mg Baclofen (Lioresal) 20 mg PO TID [facility] Last Admin: 06/13/18 05:33 Dose: 20 mg Bisacodyl (Dulcolax) 10 mg RECTAL .PRN X 1 PRN PRN Reason: Constipation Clopidogrel Bisulfate (Plavix) 75 mg PO DAILY [facility] Last Admin: 06/13/18 08:20 Dose: 75 mg Enoxaparin Sodium (Lovenox) 40 mg SC DAILY [facility] Last Admin: 06/13/18 08:21 Dose: 40 mg Escitalopram Oxalate (Lexapro) 20 mg PO QHS [facility] Last Admin: 06/12/18 20:19 Dose: 20 mg Gabapentin (Neurontin) 200 mg PO TIDCM [facility] Last Admin: 06/13/18 08:20 Dose: 200 mg Galantamine Hydrobromide (Razadyne) 12 mg PO BID [facility] Last Admin: 06/13/18 08:20 Dose: 12 mg Glimepiride (Amaryl) 2 mg PO DAILY@0800 [facility] Last Admin: 06/13/18 08:20 Dose: 2 mg Insulin Human Lispro (Humalog Kwikpen (Bkc)) 0 unit SC [facility]; Protocol Last Admin: 06/13/18 08:19 Dose: 1 u Lisinopril (Zestril) 20 mg PO DAILY [facility] Last Admin: 06/13/18 08:20 Dose: 20 mg Magnesium Hydroxide (Milk Of Magnesia) 30 ml PO .PRN X 1 PRN PRN Reason: Constipation Melatonin (Melatonin) 3 mg PO QHS [facility] Last Admin: 06/12/18 20:19 Dose: 3 mg Memantine (Namenda) 10 mg PO BID [facility] Last Admin: 06/13/18 08:21 Dose: 10 mg Polyethylene Glycol (Miralax) 17 gm PO BID [facility] Last Admin: 06/13/18 08:21 Dose: Not Given Senna/Docusate Sodium (Senokot-S, Courtney-Colace) 2 tablet PO BID [facility] Last Admin: 06/13/18 08:21 Dose: Not Given Medical Necessity - Tobacco Use Smoking Status: Former smoker Assessment/Plan All Active Problems UTI (urinary tract infection) (Acute) Difficulty walking (Acute) mechanical fall (Acute) Physical debility (Acute) Weakness (Acute) Left hemiparesis (Acute) Confusion (Acute) The patient is a 72 year old CF with PMH HTN, HLD, DM, DM neuropathy H/O stroke with residual left leg weakness, Dementia, depression admitted to [facility] IP RU with debility s/p TIA following bladder stimulator placement, for > 3 hrs therapy daily, with the aim of returning back home at or near her prior level of functional independence. Patient was admitted to [facility] with right facial droop and slurred speech on 06/08/18 following bladder stimulator placement by Dr. Brito on 06/08/18, had NIHSS of 3 per ED documentation, was not a tpa candidate per documentation, had unremarkable CT head, CTA head/neck showed right ICA 70% stenosis and Left ICA < 50% stenosis, TTE showed EF 65%, with normal LA size, MRI brain could not be done due to bladder stimulator, LDL was 32. Has been on ASA/Plavix and Lipitor at baseline since her last stroke. Plan -PT for gait stability -OT for ADLs -ST for speech, swallow evaluation and cognitive evaluation. -Analgesics as needed -Bowel protocol -Recent TIA/H/O stroke- on ASA/Plavix and Lipitor, ASA/Plavix was restarted during inpatient hospitalization after urology clearance and per hospitalist recommendations. No bleeding documented, tolerating medication well -HTN- on Lisinopril, uncontrolled HTN, will add Amlodipine 5 mg PO once daily -HLD- on Lipitor -DM- on Glimepiride, and insulin sliding scale, need better control, will defer to hospitalist -DM neuropathy- on Gabapentin -Has B/L LE swelling- LE venous Doppler reported negative on 06/08/18 -Dementia- on Galantamine and Namenda -Depression- on Lexapro -Fall precautions -DVT prophylaxis- on Lovenox, started after urology clearance from Dr. Brito -Further medical management per hospitalist recommendations - Left sided swelling and discomfort -> ordered Doppler of upper and lower extremity
--- NOTE | 2018-06-13 10:47 | PN.NEURO_ITS ---
Subjective: Patient seen and examined. Nursing noted swelling in her left arm and leg, which is new per patient. Patient did have a Bladder stimulator placed last week, will check Doppler or the left side both upper and lower extremity. Otherwise patient is tolerating therapy, no issues with GI/. - Physical Exam General: Alert, Oriented x3, Cooperative HEENT: Atraumatic, PERRLA, EOMI, Normocephalic Neck: Supple, No JVD, Negative Carotid Bruits Lungs: Clear to auscultation, Normal air movement Cardiovascular: Regular rate, No murmurs Abdomen: Bowel Sounds Present, Soft, Non Tender Extremities: No edema, Capillary Refill Less than 3 Seconds Skin: No rashes, No breakdown Musculoskeletal: No Tenderness to Palpation of Joints or Extremities Neurological: Cranial nerves II-XII grossly intact Psych/Mental Status: Normal Affect, Appropriate, Alert and oriented to time, place, person, mood and affect Vital Signs Temp Pulse Resp BP Pulse Ox 98.1 F 67 18 131/71 H 92 06/13/18 07:00 06/13/18 07:00 06/13/18 07:00 06/13/18 07:00 06/13/18 07:00 Oxygen Delivery Method Room Air Weight: 94 kg Body Mass Index (BMI) 36.7 Finger Stick Blood Glucose 221 Intake and Output for Last 24 Hours 06/11/18 06/12/18 06/13/18 23:59 23:59 23:59 Intake Total 800 / 800 200 / 200 240 / 240 Balance 800 / 800 200 / 200 240 / 240 POC Glucose 06/13/18 06/12/18 06/12/18 06:31 20:16 16:31 POC Glucose 169 H 201 H 187 H 06/12/18 12:06 POC Glucose 194 H Active Medications Acetaminophen (Tylenol) 500 mg PO Q8H PRN PRN PRN Reason: PAIN Last Admin: 06/12/18 21:15 Dose: 500 mg Amlodipine Besylate (Norvasc) 5 mg PO DAILY [facility] Last Admin: 06/13/18 08:20 Dose: 5 mg Aspirin (Aspirin, Baby) 81 mg PO DAILY@0800 [facility] Last Admin: 06/13/18 08:20 Dose: 81 mg Atorvastatin Calcium (Lipitor) 40 mg PO QHS [facility] Last Admin: 06/12/18 21:56 Dose: 40 mg Baclofen (Lioresal) 20 mg PO TID [facility] Last Admin: 06/13/18 05:33 Dose: 20 mg Bisacodyl (Dulcolax) 10 mg RECTAL .PRN X 1 PRN PRN Reason: Constipation Clopidogrel Bisulfate (Plavix) 75 mg PO DAILY [facility] Last Admin: 06/13/18 08:20 Dose: 75 mg Enoxaparin Sodium (Lovenox) 40 mg SC DAILY [facility] Last Admin: 06/13/18 08:21 Dose: 40 mg Escitalopram Oxalate (Lexapro) 20 mg PO QHS [facility] Last Admin: 06/12/18 20:19 Dose: 20 mg Gabapentin (Neurontin) 200 mg PO TIDCM [facility] Last Admin: 06/13/18 08:20 Dose: 200 mg Galantamine Hydrobromide (Razadyne) 12 mg PO BID [facility] Last Admin: 06/13/18 08:20 Dose: 12 mg Glimepiride (Amaryl) 2 mg PO DAILY@0800 [facility] Last Admin: 06/13/18 08:20 Dose: 2 mg Insulin Human Lispro (Humalog Kwikpen (Bkc)) 0 unit SC [facility]; Protocol Last Admin: 06/13/18 08:19 Dose: 1 u Lisinopril (Zestril) 20 mg PO DAILY [facility] Last Admin: 06/13/18 08:20 Dose: 20 mg Magnesium Hydroxide (Milk Of Magnesia) 30 ml PO .PRN X 1 PRN PRN Reason: Constipation Melatonin (Melatonin) 3 mg PO QHS [facility] Last Admin: 06/12/18 20:19 Dose: 3 mg Memantine (Namenda) 10 mg PO BID [facility] Last Admin: 06/13/18 08:21 Dose: 10 mg Polyethylene Glycol (Miralax) 17 gm PO BID [facility] Last Admin: 06/13/18 08:21 Dose: Not Given Senna/Docusate Sodium (Senokot-S, Courtney-Colace) 2 tablet PO BID [facility] Last Admin: 06/13/18 08:21 Dose: Not Given Medical Necessity - Tobacco Use Smoking Status: Former smoker Assessment/Plan All Active Problems UTI (urinary tract infection) (Acute) Difficulty walking (Acute) mechanical fall (Acute) Physical debility (Acute) Weakness (Acute) Left hemiparesis (Acute) Confusion (Acute) The patient is a 72 year old CF with PMH HTN, HLD, DM, DM neuropathy H/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 Patient was admitted to [facility] with right facial droop and slurred speech on 06/08/18 following bladder stimulator placement by Dr. Brito on 06/08/18, had NIHSS of 3 per ED documentation, was not a tpa candidate per d ocumentation, had unremarkable CT head, CTA head/neck showed right ICA 70% stenosis and Left ICA < 50% stenosis, TTE showed EF 65%, with normal LA size, MRI brain could not be done due to bladder stimulator, LDL was 32. Has been on ASA/Plavix and Lipitor at baseline since her last stroke. Plan -PT for gait stability -OT for ADLs -ST for speech, swallow evaluation and cognitive evaluation. -Analgesics as needed -Bowel protocol -Recent TIA/H/O stroke- on ASA/Plavix and Lipitor, ASA/Plavix was restarted during inpatient hospitalization after urology clearance and per hospitalist re commendations. No bleeding documented, tolerating medication well -HTN- on Lisinopril, uncontrolled HTN, will add Amlodipine 5 mg PO once daily -HLD- on Lipitor -DM- on Glimepiride, and insulin sliding scale, need better control, will defer to hospitalist -DM neuropathy- on Gabapentin -Has B/L LE swelling- LE venous Doppler reported negative on 06/08/18 -Dementia- on Galantamine and Namenda -Depression- on Lexapro -Fall precautions -DVT prophylaxis- on Lovenox, started after urology clearance from Dr. Brito -Further medical management per hospitalist recommendations - Left sided swelling and discomfort -> ordered Doppler of upper and lower extremity
--- NOTE | 2018-06-13 11:07 | VDLE_ITS ---
Reason For Study: swelling RIGHT LEFT GSV is normal. GSV is normal. CFV is compressible, spontaneous, phasic, CFV is compressible, spontaneous, phasic, competent and demonstrates normal competent, and demonstrates normal augmentation. augmentation. FV is compressible, spontaneous, phasic, FV is compressible, spontaneous, phasic, competent and demonstrates normal competent and demonstrates normal augmentation. augmentation. POP V is compressible, spontaneous, phasic, POP V is compressible, spontaneous, phasic, competent and demonstrates normal competent and demonstrates normal augmentation. augmentation. T/P Trunk is compressible. T/P Trunk is compressible. PTV is compressible. PTV is compressible. Unable to visulaize/assess RT PERV. LT PerV is compressible. Procedure Exam performed portable in patient room. The exam was diagnostic. The study was technically difficult. A preliminary report was called and/or faxed to PT's RN & Inpatient Rehab Unit. <> Interpretation Summary Deep veins of the lower extremities are bilaterally patent and compressible segmentally. There is no evidence of deep vein thrombosis on either side. Valvular competence appears intact within the proximal deep venous systems bilaterally. The greater saphenous veins appear bilaterally patent and compressible segmentally. The right peroneal vein was not visualized. Ordering Physician: Dexter Collins MD Referring Physician: Bakari Ware Chi Performed By: Lorrie Orellana, RDCS, RVT
[2018-06-13 11:40] LABS: Bedside Glucose 166 mg/dL (70-110)
--- NOTE | 2018-06-13 15:04 | CASEMGMT ---
SW reviewed student nephrology social worker's completion of psychosocial assessment. AYDE Berger
[2018-06-13 17:11] LABS: Bedside Glucose 130 mg/dL (70-110)
[2018-06-13 19:22] VITALS: BP 158/72; PULSE 74; RESP 19; TEMP 36.8; O2SAT 92
[2018-06-13] MEDS: Escitalopram Oxalate 20 MG Tablet PO (21:37)
[2018-06-13] MEDS: MELATONIN 3 MG TABLET PO (21:37)
[2018-06-13] MEDS: Atorvastatin Calcium 40 MG Tablet PO (21:37)
[2018-06-13 22:00] VITALS: RESP 16
[2018-06-13 22:21] LABS: Bedside Glucose 245 mg/dL (70-110)
[2018-06-14] MEDS: Baclofen 10 MG Tablet 20 MG PO ×3 (05:58→21:40)
[2018-06-14 07:40] LABS: Bedside Glucose 181 mg/dL (70-110)
--- NOTE | 2018-06-14 08:47 | PCM.PN.NEU ---
Subjective: Patient seen during Physical therapy session. No new complaints, tolerating therapy. Doppler study of b/l lower extremity and left upper arm was negative for DVTs. - Physical Exam General: Alert, Oriented x3, Cooperative HEENT: Atraumatic, PERRLA, EOMI, Normocephalic Neck: Supple, No JVD, Negative Carotid Bruits Lungs: Clear to auscultation, Normal air movement Cardiovascular: Regular rate, No murmurs Abdomen: Bowel Sounds Present, Soft, Non Tender Extremities: No edema, Capillary Refill Less than 3 Seconds Skin: No rashes, No breakdown Musculoskeletal: No Tenderness to Palpation of Joints or Extremities Neurological: Cranial nerves II-XII grossly intact Psych/Mental Status: Normal Affect, Appropriate, Alert and oriented to time, place, person, mood and affect Vital Signs Temp Pulse Resp BP Pulse Ox 98.3 F 74 16 158/72 H 92 06/13/18 19:22 06/13/18 19:22 06/13/18 22:00 06/13/18 19:22 06/13/18 19:22 Oxygen Delivery Method Room Air Weight: 94 kg Body Mass Index (BMI) 36.7 Finger Stick Blood Glucose 221 Intake and Output for Last 24 Hours 06/12/18 06/13/18 06/14/18 23:59 23:59 23:59 Intake Total 200 / 200 600 / 600 Balance 200 / 200 600 / 600 POC Glucose 06/14/18 06/13/18 06/13/18 07:02 21:43 17:08 POC Glucose 181 H 245 H 130 H 06/13/18 11:37 POC Glucose 166 H Active Medications Acetaminophen (Tylenol) 500 mg PO Q8H PRN PRN PRN Reason: PAIN Last Admin: 06/12/18 21:15 Dose: 500 mg Amlodipine Besylate (Norvasc) 5 mg PO DAILY [facility] Last Admin: 06/13/18 08:20 Dose: 5 mg Aspirin (Aspirin, Baby) 81 mg PO DAILY@0800 [facility] Last Admin: 06/13/18 08:20 Dose: 81 mg Atorvastatin Calcium (Lipitor) 40 mg PO QHS [facility] Last Admin: 06/13/18 21:37 Dose: 40 mg Baclofen (Lioresal) 20 mg PO TID [facility] Last Admin: 06/14/18 05:58 Dose: 20 mg Bisacodyl (Dulcolax) 10 mg RECTAL .PRN X 1 PRN PRN Reason: Constipation Clopidogrel Bisulfate (Plavix) 75 mg PO DAILY [facility] Last Admin: 06/13/18 08:20 Dose: 75 mg Enoxaparin Sodium (Lovenox) 40 mg SC DAILY [facility] Last Admin: 06/13/18 08:21 Dose: 40 mg Escitalopram Oxalate (Lexapro) 20 mg PO QHS [facility] Last Admin: 06/13/18 21:37 Dose: 20 mg Gabapentin (Neurontin) 200 mg PO TIDCM [facility] Last Admin: 06/13/18 17:54 Dose: 200 mg Galantamine Hydrobromide (Razadyne) 12 mg PO BID [facility] Last Admin: 06/13/18 21:37 Dose: 12 mg Glimepiride (Amaryl) 2 mg PO DAILY@0800 [facility] Last Admin: 06/13/18 08:20 Dose: 2 mg Insulin Human Lispro (Humalog Kwikpen (Bkc)) 0 unit [facility]; Protocol Last Admin: 06/13/18 22:01 Dose: 3 u Lisinopril (Zestril) 20 mg PO DAILY [facility] Last Admin: 06/13/18 08:20 Dose: 20 mg Magnesium Hydroxide (Milk Of Magnesia) 30 ml PO .PRN X 1 PRN PRN Reason: Constipation Melatonin (Melatonin) 3 mg PO QHS [facility] Last Admin: 06/13/18 21:37 Dose: 3 mg Memantine (Namenda) 10 mg PO BID [facility] Last Admin: 06/13/18 21:37 Dose: 10 mg Polyethylene Glycol (Miralax) 17 gm PO BID [facility] Last Admin: 06/13/18 21:38 Dose: Not Given Senna/Docusate Sodium (Senokot-S, Courtney-Colace) 2 tablet PO BID [facility] Last Admin: 06/13/18 21:38 Dose: Not Given Medical Necessity - Tobacco Use Smoking Status: Former smoker Assessment/Plan All Active Problems UTI (urinary tract infection) (Acute) Difficulty walking (Acute) mechanical fall (Acute) Physical debility (Acute) Weakness (Acute) Left hemiparesis (Acute) Confusion (Acute) The patient is a 72 year old CF with PMH HTN, HLD, DM, DM neuropathy H/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 Patient was admitted to [facility] with right facial droop and slurred speech on 06/08/18 following bladder stimulator placement by Dr. Brito on 06/08/18, had NIHSS of 3 per ED documentation, was not a tpa candidate per documentation, had unremarkable CT head, CTA head/neck showed right ICA 70% stenosis and Left ICA < 50% stenosis, TTE showed EF 65%, with normal LA size, MRI brain could not be done due to bladder stimulator, LDL was 32. Has been on ASA/Plavix and Lipitor at baseline since her last stroke. Plan -PT for gait stability -OT for ADLs -ST for speech, swallow evaluation and cognitive evaluation. -Analgesics as needed -Bowel protocol -Recent TIA/H/O stroke- on ASA/Plavix and Lipitor, ASA/Plavix was restarted during inpatient hospitalization after urology clearance and per hospitalist recommendations. No bleeding documented, tolerating medication well -HTN- on Lisinopril, uncontrolled HTN, will add Amlodipine 5 mg PO once daily -HLD- on Lipitor -DM- on Glimepiride, and insulin sliding scale, need better control, will defer to hospitalist -DM neuropathy- on Gabapentin -Has B/L LE swelling- LE venous Doppler reported negative on 06/08/18 -Dementia- on Galantamine and Namenda -Depression- on Lexapro -Fall precautions -DVT prophylaxis- on Lovenox, started after urology clearance from Dr. Brito -Further medical management per hospitalist recommendations - Left sided swelling and discomfort -> ordered Doppler of upper and lower extremity
--- NOTE | 2018-06-14 08:52 | PN.NEURO_ITS ---
Subjective: Patient seen during Physical therapy session. No new complaints, tolerating therapy. Doppler study of b/l lower extremity and left upper arm was negative for DVTs. - Physical Exam General: Alert, Oriented x3, Cooperative HEENT: Atraumatic, PERRLA, EOMI, Normocephalic Neck: Supple, No JVD, Negative Carotid Bruits Lungs: Clear to auscultation, Normal air movement Cardiovascular: Regular rate, No murmurs Abdomen: Bowel Sounds Present, Soft, Non Tender Extremities: No edema, Capillary Refill Less than 3 Seconds Skin: No rashes, No breakdown Musculoskeletal: No Tenderness to Palpation of Joints or Extremities Neurological: Cranial nerves II-XII grossly intact Psych/Mental Status: Normal Affect, Appropriate, Alert and oriented to time, place, person, mood and affect Vital Signs Temp Pulse Resp BP Pulse Ox 98.3 F 74 16 158/72 H 92 06/13/18 19:22 06/13/18 19:22 06/13/18 22:00 06/13/18 19:22 06/13/18 19:22 Oxygen Delivery Method Room Air Weight: 94 kg Body Mass Index (BMI) 36.7 Finger Stick Blood Glucose 221 Intake and Output for Last 24 Hours 06/12/18 06/13/18 06/14/18 23:59 23:59 23:59 Intake Total 200 / 200 600 / 600 Balance 200 / 200 600 / 600 POC Glucose 06/14/18 06/13/18 06/13/18 07:02 21:43 17:08 POC Glucose 181 H 245 H 130 H 06/13/18 11:37 POC Glucose 166 H Active Medications Acetaminophen (Tylenol) 500 mg PO Q8H PRN PRN PRN Reason: PAIN Last Admin: 06/12/18 21:15 Dose: 500 mg Amlodipine Besylate (Norvasc) 5 mg PO DAILY [facility] Last Admin: 06/13/18 08:20 Dose: 5 mg Aspirin (Aspirin, Baby) 81 mg PO DAILY@0800 [facility] Last Admin: 06/13/18 08:20 Dose: 81 mg Atorvastatin Calcium (Lipitor) 40 mg PO QHS [facility] Last Admin: 06/13/18 21:37 Dose: 40 mg Baclofen (Lioresal) 20 mg PO TID [facility] Last Admin: 06/14/18 05:58 Dose: 20 mg Bisacodyl (Dulcolax) 10 mg RECTAL .PRN X 1 PRN PRN Reason: Constipation Clopidogrel Bisulfate (Plavix) 75 mg PO DAILY [facility] Last Admin: 06/13/18 08:20 Dose: 75 mg Enoxaparin Sodium (Lovenox) 40 mg SC DAILY [facility] Last Admin: 06/13/18 08:21 Dose: 40 mg Escitalopram Oxalate (Lexapro) 20 mg PO QHS [facility] Last Admin: 06/13/18 21:37 Dose: 20 mg Gabapentin (Neurontin) 200 mg PO TIDCM [facility] Last Admin: 06/13/18 17:54 Dose: 200 mg Galantamine Hydrobromide (Razadyne) 12 mg PO BID [facility] Last Admin: 06/13/18 21:37 Dose: 12 mg Glimepiride (Amaryl) 2 mg PO DAILY@0800 [facility] Last Admin: 06/13/18 08:20 Dose: 2 mg Insulin Human Lispro (Humalog Kwikpen (Bkc)) 0 unit [facility]; Protocol Last Admin: 06/13/18 22:01 Dose: 3 u Lisinopril (Zestril) 20 mg PO DAILY [facility] Last Admin: 06/13/18 08:20 Dose: 20 mg Magnesium Hydroxide (Milk Of Magnesia) 30 ml PO .PRN X 1 PRN PRN Reason: Constipation Melatonin (Melatonin) 3 mg PO QHS [facility] Last Admin: 06/13/18 21:37 Dose: 3 mg Memantine (Namenda) 10 mg PO BID [facility] Last Admin: 06/13/18 21:37 Dose: 10 mg Polyethylene Glycol (Miralax) 17 gm PO BID [facility] Last Admin: 06/13/18 21:38 Dose: Not Given Senna/Docusate Sodium (Senokot-S, Courtney-Colace) 2 tablet PO BID [facility] Last Admin: 06/13/18 21:38 Dose: Not Given Medical Necessity - Tobacco Use Smoking Status: Former smoker Assessment/Plan All Active Problems UTI (urinary tract infection) (Acute) Difficulty walking (Acute) mechanical fall (Acute) Physical debility (Acute) Weakness (Acute) Left hemiparesis (Acute) Confusion (Acute) The patient is a 72 year old CF with PMH HTN, HLD, DM, DM neuropathy H/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 Patient was admitted to [facility] with right facial droop and slurred speech on 06/08/18 following bladder stimulator placement by Dr. Brito on 06/08/18, had NIHSS of 3 per ED documentation, was not a tpa candidate per documentation, had unremarkable CT head, CTA head/neck showed right ICA 70% stenosis and Left ICA < 50% stenosis, TTE showed EF 65%, with normal LA size, MRI brain could not be done due to bladder stimulator, LDL was 32. Has been on ASA/Plavix and Lipitor at baseline since her last stroke. Plan -PT for gait stability -OT for ADLs -ST for speech, swallow evaluation and cognitive evaluation. -Analgesics as needed -Bowel protocol -Recent TIA/H/O stroke- on ASA/Plavix and Lipitor, ASA/Plavix was restarted during inpatient hospitalization after urology clearance and per hospitalist recommendations. No bleeding documented, tolerating medication well -HTN- on Lisinopril, uncontrolled HTN, will add Amlodipine 5 mg PO once daily -HLD- on Lipitor -DM- on Glimepiride, and insulin sliding scale, need better control, will defer to hospitalist -DM neuropathy- on Gabapentin -Has B/L LE swelling- LE venous Doppler reported negative on 06/08/18 -Dementia- on Galantamine and Namenda -Depression- on Lexapro -Fall precautions -DVT prophylaxis- on Lovenox, started after urology clearance from Dr. Brito -Further medical management per hospitalist recommendations - Left sided swelling and discomfort -> ordered Doppler of upper and lower extremity
[2018-06-14 09:09] VITALS: BP 153/87; PULSE 62; RESP 16; TEMP 36.7; O2SAT 92
[2018-06-14] MEDS: amLODIPine 5 MG Tablet PO (09:11)
[2018-06-14] MEDS: Clopidogrel Bisulfate 75 MG Tablet PO (09:11)
[2018-06-14] MEDS: Gabapentin 100 MG Capsule 200 MG PO ×3 (09:11→17:28)
[2018-06-14] MEDS: Lisinopril 20 MG Tablet PO (09:11)
[2018-06-14] MEDS: Memantine Hydrochloride 10 MG Tablet PO ×2 (09:11→21:40)
[2018-06-14] MEDS: Enoxaparin 40 MG/0.4 ML Syringe SC (09:11)
[2018-06-14] MEDS: Galantamine Hydrobromide 4 MG Tablet 12 MG PO ×2 (09:11→21:39)
[2018-06-14] MEDS: Glimepiride 2 MG Tablet PO (09:12)
[2018-06-14] MEDS: Aspirin 81 MG TAB.CHEW PO (09:12)
[2018-06-14] MEDS: Insulin Lispro 100 UNIT/ML INSULN.PEN SC ×4 (09:14→21:50)
[2018-06-14 11:40] LABS: Bedside Glucose 152 mg/dL (70-110)
--- NOTE | 2018-06-14 12:24 | CASEMGMT ---
Insurance Clinical updates faxed. Will await continued stay determination. Auth# [id number] AYDE Medina
--- NOTE | 2018-06-14 14:43 | CASEMGMT ---
Social Work Phone call placed to pt dgt Nanci to discuss home situation. Pt lives in a [place] home with daughter and son in law. At this time dgt and son in law are not working and will be available in to home to assist with care needs. Home is handicap accessible. Pt dgt states plan is to take pt home upon d/c. Pt previously utilized home health therapy and would be open to this again if warranted. Team meeting is planned for and dgt aware. SW will continue to follow for d/c planning. AYDE Berger
--- NOTE | 2018-06-14 16:24 | CASEMGMT ---
Insurance continued stay approved with update due 06/17/18. Auth # [id number] Daughter notified. AYDE Berger
[2018-06-14 17:06] LABS: Bedside Glucose 214 mg/dL (70-110)
[2018-06-14 19:07] VITALS: BP 144/79; PULSE 65; RESP 16; TEMP 36.8; O2SAT 92
[2018-06-14] MEDS: Atorvastatin Calcium 40 MG Tablet PO (21:40)
[2018-06-14] MEDS: Escitalopram Oxalate 20 MG Tablet PO (21:40)
[2018-06-14] MEDS: MELATONIN 3 MG TABLET PO (21:40)
[2018-06-14] MEDS: Senna/Docusate Sodium 1 Tablet 2 TABLET PO (21:47)
[2018-06-14] MEDS: Polyethylene Glycol 3350 17 GM PACKET PO (21:48)
[2018-06-14 22:00] VITALS: RESP 16
[2018-06-14 22:00] LABS: Bedside Glucose 231 mg/dL (70-110)
[2018-06-15] MEDS: Baclofen 10 MG Tablet 20 MG PO ×3 (06:32→23:15)
[2018-06-15 07:36] LABS: Bedside Glucose 179 mg/dL (70-110)
[2018-06-15] MEDS: Enoxaparin 40 MG/0.4 ML Syringe SC (08:03)
[2018-06-15] MEDS: Insulin Lispro 100 UNIT/ML INSULN.PEN SC ×4 (08:03→23:16)
[2018-06-15] MEDS: Clopidogrel Bisulfate 75 MG Tablet PO (08:04)
[2018-06-15] MEDS: Galantamine Hydrobromide 4 MG Tablet 12 MG PO ×2 (08:04→23:14)
[2018-06-15] MEDS: amLODIPine 5 MG Tablet PO (08:04)
[2018-06-15] MEDS: Lisinopril 20 MG Tablet PO (08:04)
[2018-06-15] MEDS: Glimepiride 2 MG Tablet PO (08:05)
[2018-06-15] MEDS: Memantine Hydrochloride 10 MG Tablet PO ×2 (08:05→23:14)
[2018-06-15] MEDS: Gabapentin 100 MG Capsule 200 MG PO ×3 (08:05→16:56)
[2018-06-15] MEDS: Aspirin 81 MG TAB.CHEW PO (08:05)
[2018-06-15 08:38] VITALS: BP 156/75; PULSE 69; RESP 18; TEMP 36.8; O2SAT 92
--- NOTE | 2018-06-15 09:19 | NURSING ---
per therapy, D/C personal alarm at this time. Pt compliant with ringing call light.
--- NOTE | 2018-06-15 09:23 | PCM.PN.NEU ---
Subjective: Patient seen and examined. No new complaints, slept well pain is controlled. Tolerating therapy. Spoke with Dr. Brito's office concerning dressing covering her bladder stimulator, instructed to reinforce the dressing and no showers until follow up with him. No issues with GI/. - Physical Exam General: Alert, Oriented x3, Cooperative HEENT: Atraumatic, PERRLA, EOMI, Normocephalic Neck: Supple, No JVD, Negative Carotid Bruits Lungs: Clear to auscultation, Normal air movement Cardiovascular: Regular rate, No murmurs Abdomen: Bowel Sounds Present, Soft, Non Tender Extremities: No edema, Capillary Refill Less than 3 Seconds Skin: No rashes, No breakdown Musculoskeletal: No Tenderness to Palpation of Joints or Extremities Neurological: Cranial nerves II-XII grossly intact Psych/Mental Status: Normal Affect, Appropriate, Alert and oriented to time, place, person, mood and affect Vital Signs Temp Pulse Resp BP Pulse Ox 98.2 F 69 18 156/75 H 92 06/15/18 08:38 06/15/18 08:38 06/15/18 08:38 06/15/18 08:38 06/15/18 08:38 Oxygen Delivery Method Room Air Weight: 94 kg Body Mass Index (BMI) 36.7 Finger Stick Blood Glucose 221 Intake and Output for Last 24 Hours 06/13/18 06/14/18 06/15/18 23:59 23:59 23:59 Intake Total 600 / 600 Balance 600 / 600 POC Glucose 06/15/18 06/14/18 06/14/18 07:23 21:47 16:59 POC Glucose 179 H 231 H 214 H 06/14/18 11:36 POC Glucose 152 H Active Medications Acetaminophen (Tylenol) 500 mg PO Q8H PRN PRN PRN Reason: PAIN Last Admin: 06/12/18 21:15 Dose: 500 mg Amlodipine Besylate (Norvasc) 5 mg PO DAILY [facility] Last Admin: 06/15/18 08:04 Dose: 5 mg Aspirin (Aspirin, Baby) 81 mg PO DAILY@0800 [facility] Last Admin: 06/15/18 08:05 Dose: 81 mg Atorvastatin Calcium (Lipitor) 40 mg PO QHS [facility] Last Admin: 06/14/18 21:40 Dose: 40 mg Baclofen (Lioresal) 20 mg PO TID [facility] Last Admin: 06/15/18 06:32 Dose: 20 mg Bisacodyl (Dulcolax) 10 mg RECTAL .PRN X 1 PRN PRN Reason: Constipation Clopidogrel Bisulfate (Plavix) 75 mg PO DAILY [facility] Last Admin: 06/15/18 08:04 Dose: 75 mg Enoxaparin Sodium (Lovenox) 40 mg SC DAILY [facility] Last Admin: 06/15/18 08:03 Dose: 40 mg Escitalopram Oxalate (Lexapro) 20 mg PO QHS [facility] Last Admin: 06/14/18 21:40 Dose: 20 mg Gabapentin (Neurontin) 200 mg PO TIDCM [facility] Last Admin: 06/15/18 08:05 Dose: 200 mg Galantamine Hydrobromide (Razadyne) 12 mg PO BID [facility] Last Admin: 06/15/18 08:04 Dose: 12 mg Glimepiride (Amaryl) 2 mg PO DAILY@0800 [facility] Last Admin: 06/15/18 08:05 Dose: 2 mg Insulin Human Lispro (Humalog Kwikpen (Bkc)) 0 unit [facility]; Protocol Last Admin: 06/15/18 08:03 Dose: 1 u Lisinopril (Zestril) 20 mg PO DAILY [facility] Last Admin: 06/15/18 08:04 Dose: 20 mg Magnesium Hydroxide (Milk Of Magnesia) 30 ml PO .PRN X 1 PRN PRN Reason: Constipation Melatonin (Melatonin) 3 mg PO QHS [facility] Last Admin: 06/14/18 21:40 Dose: 3 mg Memantine (Namenda) 10 mg PO BID [facility] Last Admin: 06/15/18 08:05 Dose: 10 mg Polyethylene Glycol (Miralax) 17 gm PO BID [facility] Last Admin: 06/15/18 08:12 Dose: Not Given Senna/Docusate Sodium (Senokot-S, Courtney-Colace) 2 tablet PO BID [facility] Last Admin: 06/15/18 08:05 Dose: Not Given Medical Necessity - Tobacco Use Smoking Status: Former smoker Assessment/Plan All Active Problems UTI (urinary tract infection) (Acute) Difficulty walking (Acute) mechanical fall (Acute) Physical debility (Acute) Weakness (Acute) Left hemiparesis (Acute) Confusion (Acute) The patient is a 72 year old CF with PMH HTN, HLD, DM, DM neuropathy H/O stroke with residual left leg weakness, Dementia, depression admitted to [facility] IP RU with debility s/p TIA following bladder stimulator placement, for > 3 hrs therapy daily, with the aim of returning back home at or near her prior level of functional independence. Patient was admitted to [facility] with right facial droop and slurred speech on 06/08/18 following bladder stimulator placement by Dr. Brito on 06/08/18, had NIHSS of 3 per ED documentation, was not a tpa candidate per documentation, had unremarkable CT head, CTA head/neck showed right ICA 70% stenosis and Left ICA < 50% stenosis, TTE showed EF 65%, with normal LA size, MRI brain could not be done due to bladder stimulator, LDL was 32. Has been on ASA/Plavix and Lipitor at baseline since her last stroke. Plan -PT for gait stability -OT for ADLs -ST for speech, swallow evaluation and cognitive evaluation. -Analgesics as needed -Bowel protocol -Recent TIA/H/O stroke- on ASA/Plavix and Lipitor, ASA/Plavix was restarted during inpatient hospitalization after urology clearance and per hospitalist recommendations. No bleeding documented, tolerating medication well -HTN- on Lisinopril, uncontrolled HTN, will add Amlodipine 5 mg PO once daily -HLD- on Lipitor -DM- on Glimepiride, and insulin sliding scale, need better control, will defer to hospitalist -DM neuropathy- on Gabapentin -Has B/L LE swelling- LE venous Doppler reported negative on 06/08/18 -Dementia- on Galantamine and Namenda -Depression- on Lexapro -Fall precautions -DVT prophylaxis- on Lovenox, started after urology clearance from Dr. Brito -Further medical management per hospitalist recommendations - Left sided swelling and discomfort -> ordered Doppler of upper and lower extremity - No showering until follow up in Dr. Brito's office.
--- NOTE | 2018-06-15 09:28 | PN.NEURO_ITS ---
Subjective: Patient seen and examined. No new complaints, slept well pain is controlled. Tolerating therapy. Spoke with Dr. Brito's office concerning dressing covering her bladder stimulator, instructed to reinforce the dressing and no showers until follow up with him. No issues with GI/. - Physical Exam General: Alert, Oriented x3, Cooperative HEENT: Atraumatic, PERRLA, EOMI, Normocephalic Neck: Supple, No JVD, Negative Carotid Bruits Lungs: Clear to auscultation, Normal air movement Cardiovascular: Regular rate, No murmurs Abdomen: Bowel Sounds Present, Soft, Non Tender Extremities: No edema, Capillary Refill Less than 3 Seconds Skin: No rashes, No breakdown Musculoskeletal: No Tenderness to Palpation of Joints or Extremities Neurological: Cranial nerves II-XII grossly intact Psych/Mental Status: Normal Affect, Appropriate, Alert and oriented to time, place, person, mood and affect Vital Signs Temp Pulse Resp BP Pulse Ox 98.2 F 69 18 156/75 H 92 06/15/18 08:38 06/15/18 08:38 06/15/18 08:38 06/15/18 08:38 06/15/18 08:38 Oxygen Delivery Method Room Air Weight: 94 kg Body Mass Index (BMI) 36.7 Finger Stick Blood Glucose 221 Intake and Output for Last 24 Hours 06/13/18 06/14/18 06/15/18 23:59 23:59 23:59 Intake Total 600 / 600 Balance 600 / 600 POC Glucose 06/15/18 06/14/18 06/14/18 07:23 21:47 16:59 POC Glucose 179 H 231 H 214 H 06/14/18 11:36 POC Glucose 152 H Active Medications Acetaminophen (Tylenol) 500 mg PO Q8H PRN PRN PRN Reason: PAIN Last Admin: 06/12/18 21:15 Dose: 500 mg Amlodipine Besylate (Norvasc) 5 mg PO DAILY [facility] Last Admin: 06/15/18 08:04 Dose: 5 mg Aspirin (Aspirin, Baby) 81 mg PO DAILY@0800 [facility] Last Admin: 06/15/18 08:05 Dose: 81 mg Atorvastatin Calcium (Lipitor) 40 mg PO QHS [facility] Last Admin: 06/14/18 21:40 Dose: 40 mg Baclofen (Lioresal) 20 mg PO TID [facility] Last Admin: 06/15/18 06:32 Dose: 20 mg Bisacodyl (Dulcolax) 10 mg RECTAL .PRN X 1 PRN PRN Reason: Constipation Clopidogrel Bisulfate (Plavix) 75 mg PO DAILY [facility] Last Admin: 06/15/18 08:04 Dose: 75 mg Enoxaparin Sodium (Lovenox) 40 mg SC DAILY [facility] Last Admin: 06/15/18 08:03 Dose: 40 mg Escitalopram Oxalate (Lexapro) 20 mg PO QHS [facility] Last Admin: 06/14/18 21:40 Dose: 20 mg Gabapentin (Neurontin) 200 mg PO TIDCM [facility] Last Admin: 06/15/18 08:05 Dose: 200 mg Galantamine Hydrobromide (Razadyne) 12 mg PO BID [facility] Last Admin: 06/15/18 08:04 Dose: 12 mg Glimepiride (Amaryl) 2 mg PO DAILY@0800 [facility] Last Admin: 06/15/18 08:05 Dose: 2 mg Insulin Human Lispro (Humalog Kwikpen (Bkc)) 0 unit [facility]; Protocol Last Admin: 06/15/18 08:03 Dose: 1 u Lisinopril (Zestril) 20 mg PO DAILY [facility] Last Admin: 06/15/18 08:04 Dose: 20 mg Magnesium Hydroxide (Milk Of Magnesia) 30 ml PO .PRN X 1 PRN PRN Reason: Constipation Melatonin (Melatonin) 3 mg PO QHS [facility] Last Admin: 06/14/18 21:40 Dose: 3 mg Memantine (Namenda) 10 mg PO BID [facility] Last Admin: 06/15/18 08:05 Dose: 10 mg Polyethylene Glycol (Miralax) 17 gm PO BID [facility] Last Admin: 06/15/18 08:12 Dose: Not Given Senna/Docusate Sodium (Senokot-S, Courtney-Colace) 2 tablet PO BID [facility] Last Admin: 06/15/18 08:05 Dose: Not Given Medical Necessity - Tobacco Use Smoking Status: Former smoker Assessment/Plan All Active Problems UTI (urinary tract infection) (Acute) Difficulty walking (Acute) mechanical fall (Acute) Physical debility (Acute) Weakness (Acute) Left hemiparesis (Acute) Confusion (Acute) The patient is a 72 year old CF with PMH HTN, HLD, DM, DM neuropathy H/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 Patient was admitted to [facility] with right facial droop and slurred speech on 06/08/18 following bladder stimulator placement by Dr. Brito on 06/08/18, had NIHSS of 3 per ED documentation, was not a tpa candidate per documentation, had unremarkable CT head, CTA head/neck showed right ICA 70% stenosis and Left ICA < 50% stenosis, TTE showed EF 65%, with normal LA size, MRI brain could not be done due to bladder stimulator, LDL was 32. Has been on ASA/Plavix and Lipitor at baseline since her last stroke. Plan -PT for gait stability -OT for ADLs -ST for speech, swallow evaluation and cognitive evaluation. -Analgesics as needed -Bowel protocol -Recent TIA/H/O stroke- on ASA/Plavix and Lipitor, ASA/Plavix was restarted during inpatient hospitalization after urology clearance and per hospitalist recommendations. No bleeding documented, tolerating medication well -HTN- on Lisinopril, uncontrolled HTN, will add Amlodipine 5 mg PO once daily -HLD- on Lipitor -DM- on Glimepiride, and insulin sliding scale, need better control, will defer to hospitalist -DM neuropathy- on Gabapentin -Has B/L LE swelling- LE venous Doppler reported negative on 06/08/18 -Dementia- on Galantamine and Namenda -Depression- on Lexapro -Fall precautions -DVT prophylaxis- on Lovenox, started after urology clearance from Dr. Brito -Further medical management per hospitalist recommendations - Left sided swelling and discomfort -> ordered Doppler of upper and lower extremity - No showering until follow up in Dr. Brito's office.
[2018-06-15 12:06] LABS: Bedside Glucose 179 mg/dL (70-110)
[2018-06-15 16:45] LABS: Bedside Glucose 202 mg/dL (70-110)
[2018-06-15 19:56] VITALS: BP 151/78; PULSE 70; RESP 19; TEMP 36.7; O2SAT 93
[2018-06-15] MEDS: Senna/Docusate Sodium 1 Tablet 2 TABLET PO (23:14)
[2018-06-15] MEDS: MELATONIN 3 MG TABLET PO (23:15)
[2018-06-15] MEDS: Atorvastatin Calcium 40 MG Tablet PO (23:15)
[2018-06-15] MEDS: Polyethylene Glycol 3350 17 GM PACKET PO (23:15)
[2018-06-15] MEDS: Escitalopram Oxalate 20 MG Tablet PO (23:16)
[2018-06-15 23:46] LABS: Bedside Glucose 275 mg/dL (70-110)
[2018-06-16] MEDS: Baclofen 10 MG Tablet 20 MG PO ×3 (06:28→22:27)
[2018-06-16 06:46] LABS: Bedside Glucose 172 mg/dL (70-110)
[2018-06-16 08:09] VITALS: BP 149/79; PULSE 61; RESP 20; TEMP 36.7; O2SAT 94
[2018-06-16] MEDS: Insulin Lispro 100 UNIT/ML INSULN.PEN SC ×4 (08:51→22:27)
[2018-06-16] MEDS: Lisinopril 20 MG Tablet PO (08:53)
[2018-06-16] MEDS: amLODIPine 5 MG Tablet PO (08:53)
[2018-06-16] MEDS: Clopidogrel Bisulfate 75 MG Tablet PO (08:53)
[2018-06-16] MEDS: Galantamine Hydrobromide 4 MG Tablet 12 MG PO ×2 (08:54→22:29)
[2018-06-16] MEDS: Gabapentin 100 MG Capsule 200 MG PO ×3 (08:54→17:29)
[2018-06-16] MEDS: Memantine Hydrochloride 10 MG Tablet PO ×2 (08:54→22:28)
[2018-06-16] MEDS: Enoxaparin 40 MG/0.4 ML Syringe SC (08:54)
[2018-06-16] MEDS: Aspirin 81 MG TAB.CHEW PO (08:54)
[2018-06-16] MEDS: Glimepiride 2 MG Tablet PO (08:54)
--- NOTE | 2018-06-16 10:28 | PCM.PN.NEU ---
Subjective: Staffed in team meeting. Family at bedside, questions answered. With Physical therapy, she is able to walk about 50 feet with a walker at contact guard. She has gone up and down 5 steps using 2 hand rails with a light hand for balance. With Occupational therapy, she is able to do her personal care and grooming while sitting at set up level. She is able to bath her upper body with out assistance, but requires max assist with her lower body. With nursing, pain is well controlled, she is still having episodes of incontinence. The family noted her bladder stimulator is off will contact Urology. Will re-team again next 06/23. - Physical Exam General: Alert, Oriented x3, Cooperative HEENT: Atraumatic, PERRLA, EOMI, Normocephalic Neck: Supple, No JVD, Negative Carotid Bruits Lungs: Clear to auscultation, Normal air movement Cardiovascular: Regular rate, No murmurs Abdomen: Bowel Sounds Present, Soft, Non Tender Extremities: No edema, Capillary Refill Less than 3 Seconds Skin: No rashes, No breakdown Musculoskeletal: No Tenderness to Palpation of Joints or Extremities Neurological: Cranial nerves II-XII grossly intact Psych/Mental Status: Normal Affect, Appropriate, Alert and oriented to time, place, person, mood and affect Vital Signs Temp Pulse Resp BP Pulse Ox 98.0 F 61 20 H 149/79 H 94 06/16/18 08:09 06/16/18 08:09 06/16/18 08:09 06/16/18 08:09 06/16/18 08:09 Oxygen Delivery Method Room Air Weight: 94 kg Body Mass Index (BMI) 36.7 Finger Stick Blood Glucose 221 Intake and Output for Last 24 Hours 06/14/18 06/15/18 06/16/18 23:59 23:59 23:59 Intake Total 720 / 720 240 / 240 Balance 720 / 720 240 / 240 POC Glucose 06/16/18 06/15/18 06/15/18 06:31 23:13 16:09 POC Glucose 172 H 275 H 202 H 06/15/18 11:56 POC Glucose 179 H Active Medications Acetaminophen (Tylenol) 500 mg PO Q8H PRN PRN PRN Reason: PAIN Last Admin: 06/12/18 21:15 Dose: 500 mg Amlodipine Besylate (Norvasc) 5 mg PO DAILY [facility] Last Admin: 06/16/18 08:53 Dose: 5 mg Aspirin (Aspirin, Baby) 81 mg PO DAILY@0800 [facility] Last Admin: 06/16/18 08:54 Dose: 81 mg Atorvastatin Calcium (Lipitor) 40 mg PO QHS [facility] Last Admin: 06/15/18 23:15 Dose: 40 mg Baclofen (Lioresal) 20 mg PO TID [facility] Last Admin: 06/16/18 06:28 Dose: 20 mg Bisacodyl (Dulcolax) 10 mg RECTAL .PRN X 1 PRN PRN Reason: Constipation Clopidogrel Bisulfate (Plavix) 75 mg PO DAILY [facility] Last Admin: 06/16/18 08:53 Dose: 75 mg Enoxaparin Sodium (Lovenox) 40 mg SC DAILY [facility] Last Admin: 06/16/18 08:54 Dose: 40 mg Escitalopram Oxalate (Lexapro) 20 mg PO QHS [facility] Last Admin: 06/15/18 23:16 Dose: 20 mg [facility]) [facility] Last Admin: 06/16/18 08:54 Dose: 200 mg Galantamine Hydrobromide (Razadyne) 12 mg PO BID [facility] Last Admin: 06/16/18 08:54 Dose: 12 mg Glimepiride (Amaryl) 2 mg PO DAILY@0800 [facility] Last Admin: 06/16/18 08:54 Dose: 2 mg Insulin Human Lispro (Humalog Kwikpen (Bkc)) 0 unit SC [facility]; Protocol Last Admin: 06/16/18 08:51 Dose: 1 u Lisinopril (Zestril) 20 mg PO DAILY [facility] Last Admin: 06/16/18 08:53 Dose: 20 mg Magnesium Hydroxide (Milk Of Magnesia) 30 ml PO .PRN X 1 PRN PRN Reason: Constipation Melatonin (Melatonin) 3 mg PO QHS [facility] Last Admin: 06/15/18 23:15 Dose: 3 mg Memantine (Namenda) 10 mg PO BID [facility] Last Admin: 06/16/18 08:54 Dose: 10 mg Polyethylene Glycol (Miralax) 17 gm PO BID [facility] Last Admin: 06/16/18 08:48 Dose: Not Given Senna/Docusate Sodium (Senokot-S, Courtney-Colace) 2 tablet PO BID [facility] Last Admin: 06/16/18 08:49 Dose: Not Given Medical Necessity - Tobacco Use Smoking Status: Former smoker Assessment/Plan All Active Problems UTI (urinary tract infection) (Acute) Difficulty walking (Acute) mechanical fall (Acute) Physical debility (Acute) Weakness (Acute) Left hemiparesis (Acute) Confusion (Acute) The patient is a 72 year old CF with PMH HTN, HLD, DM, DM neuropathy H/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 Patient was admitted to [facility] with right facial droop and slurred speech on 06/08/18 following bladder stimulator placement by Dr. Brito on 06/08/18, had NIHSS of 3 per ED documentation, was not a tpa candidate per documentation, had unremarkable CT head, CTA head/neck showed right ICA 70% stenosis and Left ICA < 50% stenosis, TTE showed EF 65%, with normal LA size, MRI brain could not be done due to bladder stimulator, LDL was 32. Has been on ASA/Plavix and Lipitor at baseline since her last stroke. Plan -PT for gait stability -OT for ADLs -ST for speech, swallow evaluation and cognitive evaluation. -Analgesics as needed -Bowel protocol -Recent TIA/H/O stroke- on ASA/Plavix and Lipitor, ASA/Plavix was restarted during inpatient hospitalization after urology clearance and per hospitalist recommendations. No bleeding documented, tolerating medication well -HTN- on Lisinopril, uncontrolled HTN, will add Amlodipine 5 mg PO once daily -HLD- on Lipitor -DM- on Glimepiride, and insulin sliding scale, need better control, will defer to hospitalist -DM neuropathy- on Gabapentin -Has B/L LE swelling- LE venous Doppler reported negative on 06/08/18 -Dementia- on Galantamine and Namenda -Depression- on Lexapro -Fall precautions -DVT prophylaxis- on Lovenox, started after urology clearance from Dr. Brito -Further medical management per hospitalist recommendations - Left sided swelling and discomfort -> ordered Doppler of upper and lower extremity - No showering until follow up in Dr. Brito's office.
[2018-06-16 11:45] LABS: Bedside Glucose 266 mg/dL (70-110)
--- NOTE | 2018-06-16 14:37 | CASEMGMT ---
Team meeting held in room with pt, daughter and granddaughter present. Pt is receiving PT and OT and showing progress with therapy. No D/C has been set at this time as pt is continuing to benefit from therapy received in Rehab unit. Per pt and daughter, pt plans to return home with her daughter at time of discharge. Dgt states home is handicap accessible and dgt or son in law are present and available to assist as needed. Prior to hospitalization pt was able to provide most of own care and dgt would assist in needed areas. Pt and dgt aware that insurance update is due tomorrow and continued stay is not guaranteed. Plan to reteam next week. SW will continue to follow. AYDE Berger
[2018-06-16 17:11] LABS: Bedside Glucose 247 mg/dL (70-110)
[2018-06-16 20:13] VITALS: BP 156/76; PULSE 88; RESP 18; TEMP 37.1; O2SAT 93
[2018-06-16 21:26] LABS: Bedside Glucose 262 mg/dL (70-110)
[2018-06-16] MEDS: Escitalopram Oxalate 20 MG Tablet PO (22:27)
[2018-06-16] MEDS: Atorvastatin Calcium 40 MG Tablet PO (22:27)
[2018-06-16] MEDS: MELATONIN 3 MG TABLET PO (22:27)
[2018-06-17] MEDS: Baclofen 10 MG Tablet 20 MG PO ×3 (05:16→22:38)
[2018-06-17] MEDS: Enoxaparin 40 MG/0.4 ML Syringe SC (05:16)
[2018-06-17 07:00] VITALS: BP 166/89; PULSE 68; RESP 16; TEMP 36.6; O2SAT 95
[2018-06-17 07:10] LABS: Bedside Glucose 190 mg/dL (70-110)
[2018-06-17] MEDS: Insulin Lispro 100 UNIT/ML INSULN.PEN SC ×4 (07:48→22:38)
[2018-06-17] MEDS: Aspirin 81 MG TAB.CHEW PO (07:48)
[2018-06-17] MEDS: Glimepiride 2 MG Tablet PO (07:49)
[2018-06-17] MEDS: Polyethylene Glycol 3350 17 GM PACKET PO (07:49)
[2018-06-17] MEDS: Memantine Hydrochloride 10 MG Tablet PO ×2 (07:49→22:38)
[2018-06-17] MEDS: Gabapentin 100 MG Capsule 200 MG PO ×3 (07:49→17:25)
[2018-06-17] MEDS: Galantamine Hydrobromide 4 MG Tablet 12 MG PO ×2 (07:50→22:39)
[2018-06-17] MEDS: amLODIPine 5 MG Tablet PO ×2 (07:50→14:25)
[2018-06-17] MEDS: Clopidogrel Bisulfate 75 MG Tablet PO (07:50)
[2018-06-17] MEDS: Lisinopril 20 MG Tablet PO (07:51)
[2018-06-17] MEDS: Senna/Docusate Sodium 1 Tablet 2 TABLET PO ×2 (07:51→22:39)
--- NOTE | 2018-06-17 11:59 | CASEMGMT ---
Insurance Clinical update faxed. Will await continued stay determination. Auth# [id number] AYDE Berger
[2018-06-17 12:06] LABS: Bedside Glucose 230 mg/dL (70-110)
[2018-06-17 16:45] LABS: Bedside Glucose 229 mg/dL (70-110)
[2018-06-17 20:28] VITALS: BP 158/76; PULSE 68; RESP 18; TEMP 36.8; O2SAT 95
[2018-06-17 20:30] VITALS: PULSE 68
[2018-06-17 21:10] LABS: Bedside Glucose 274 mg/dL (70-110)
[2018-06-17] MEDS: MELATONIN 3 MG TABLET PO (22:38)
[2018-06-17] MEDS: Atorvastatin Calcium 40 MG Tablet PO (22:38)
[2018-06-17] MEDS: Escitalopram Oxalate 20 MG Tablet PO (22:38)
--- NOTE | 2018-06-18 05:06 | NURSING ---
Reviewed and agree with LPNs fims and handoff
[2018-06-18] MEDS: Baclofen 10 MG Tablet 20 MG PO ×3 (06:15→20:48)
[2018-06-18] MEDS: Enoxaparin 40 MG/0.4 ML Syringe SC (06:15)
[2018-06-18] MEDS: Senna/Docusate Sodium 1 Tablet 2 TABLET PO (07:36)
[2018-06-18] MEDS: Glimepiride 2 MG Tablet PO (07:36)
[2018-06-18] MEDS: Gabapentin 100 MG Capsule 200 MG PO ×3 (07:36→16:49)
[2018-06-18] MEDS: Polyethylene Glycol 3350 17 GM PACKET PO (07:37)
[2018-06-18] MEDS: Memantine Hydrochloride 10 MG Tablet PO ×2 (07:37→20:47)
[2018-06-18] MEDS: Galantamine Hydrobromide 4 MG Tablet 12 MG PO ×2 (07:37→20:47)
[2018-06-18] MEDS: amLODIPine 10 MG Tablet PO (07:38)
[2018-06-18] MEDS: Aspirin 81 MG TAB.CHEW PO (07:38)
[2018-06-18] MEDS: Clopidogrel Bisulfate 75 MG Tablet PO (07:39)
[2018-06-18] MEDS: Insulin Lispro 100 UNIT/ML INSULN.PEN SC ×4 (07:39→20:59)
[2018-06-18] MEDS: Lisinopril 20 MG Tablet PO (07:39)
[2018-06-18 07:46] LABS: Bedside Glucose 200 mg/dL (70-110)
[2018-06-18 07:50] VITALS: BP 148/76; PULSE 62; RESP 16; TEMP 36.6; O2SAT 94
[2018-06-18 11:15] LABS: Bedside Glucose 317 mg/dL (70-110)
[2018-06-18 16:21] LABS: Bedside Glucose 247 mg/dL (70-110)
[2018-06-18] MEDS: MELATONIN 3 MG TABLET PO (20:48)
[2018-06-18] MEDS: Atorvastatin Calcium 40 MG Tablet PO (20:48)
[2018-06-18] MEDS: Escitalopram Oxalate 20 MG Tablet PO (20:48)
[2018-06-18 20:51] VITALS: BP 148/79; PULSE 87; RESP 18; TEMP 37; O2SAT 98
[2018-06-18 21:21] LABS: Bedside Glucose 209 mg/dL (70-110)
[2018-06-19] MEDS: Enoxaparin 40 MG/0.4 ML Syringe SC (06:34)
[2018-06-19] MEDS: Baclofen 10 MG Tablet 20 MG PO ×3 (06:35→22:40)
[2018-06-19 06:55] LABS: Bedside Glucose 205 mg/dL (70-110)
[2018-06-19 07:12] VITALS: BP 139/67; PULSE 63; RESP 18; TEMP 36.9; O2SAT 94
[2018-06-19] MEDS: Insulin Lispro 100 UNIT/ML INSULN.PEN SC ×4 (07:58→22:47)
[2018-06-19] MEDS: Gabapentin 100 MG Capsule 200 MG PO ×3 (07:59→16:44)
[2018-06-19] MEDS: Glimepiride 2 MG Tablet PO (07:59)
[2018-06-19] MEDS: amLODIPine 10 MG Tablet PO (07:59)
[2018-06-19] MEDS: Aspirin 81 MG TAB.CHEW PO (07:59)
[2018-06-19] MEDS: Memantine Hydrochloride 10 MG Tablet PO ×2 (07:59→22:41)
[2018-06-19] MEDS: Galantamine Hydrobromide 4 MG Tablet 12 MG PO ×2 (08:00→22:40)
[2018-06-19] MEDS: Clopidogrel Bisulfate 75 MG Tablet PO (08:00)
[2018-06-19] MEDS: Lisinopril 20 MG Tablet PO (08:00)
--- NOTE | 2018-06-19 09:08 | NURSING ---
UP TO BATHROOM AND THEN AMBULATED TO ICE MACHINE AND BACK TO CHAIR WITH WALKER AND LIGHT TOUCH. DID TIRE ON WAY BACK TO ROOM.
[2018-06-19 11:11] LABS: Bedside Glucose 300 mg/dL (70-110)
[2018-06-19 16:35] LABS: Bedside Glucose 266 mg/dL (70-110)
[2018-06-19 22:30] VITALS: BP 146/68; PULSE 71; RESP 16; TEMP 36.8; O2SAT 93
[2018-06-19] MEDS: MELATONIN 3 MG TABLET PO (22:40)
[2018-06-19] MEDS: Escitalopram Oxalate 20 MG Tablet PO (22:40)
[2018-06-19] MEDS: Senna/Docusate Sodium 1 Tablet 2 TABLET PO (22:40)
[2018-06-19] MEDS: Atorvastatin Calcium 40 MG Tablet PO (22:40)
[2018-06-19 23:46] LABS: Bedside Glucose 300 mg/dL (70-110)
[2018-06-20] MEDS: Enoxaparin 40 MG/0.4 ML Syringe SC (05:52)
[2018-06-20] MEDS: Baclofen 10 MG Tablet 20 MG PO ×3 (05:52→20:43)
[2018-06-20 06:50] LABS: Bedside Glucose 183 mg/dL (70-110)
[2018-06-20 07:45] VITALS: BP 155/74; PULSE 62; RESP 16; TEMP 36.6; O2SAT 93
[2018-06-20] MEDS: Gabapentin 100 MG Capsule 200 MG PO ×3 (10:08→18:01)
[2018-06-20] MEDS: amLODIPine 10 MG Tablet PO (10:08)
[2018-06-20] MEDS: Lisinopril 20 MG Tablet PO (10:08)
[2018-06-20] MEDS: Aspirin 81 MG TAB.CHEW PO (10:09)
[2018-06-20] MEDS: Glimepiride 2 MG Tablet PO (10:09)
[2018-06-20] MEDS: Senna/Docusate Sodium 1 Tablet 2 TABLET PO ×2 (10:10→20:42)
[2018-06-20] MEDS: Memantine Hydrochloride 10 MG Tablet PO ×2 (10:10→20:42)
[2018-06-20] MEDS: Polyethylene Glycol 3350 17 GM PACKET PO (10:10)
[2018-06-20] MEDS: Clopidogrel Bisulfate 75 MG Tablet PO (10:12)
[2018-06-20] MEDS: Galantamine Hydrobromide 4 MG Tablet 12 MG PO ×2 (10:12→20:42)
[2018-06-20] MEDS: Insulin Lispro 100 UNIT/ML INSULN.PEN SC ×4 (10:14→21:29)
[2018-06-20 11:50] LABS: Bedside Glucose 270 mg/dL (70-110)
--- NOTE | 2018-06-20 12:25 | CASEMGMT ---
Insurance Telephone call from insurance. Continued stay denied with last cover day being 06/20/18 and patient to discharge or financial responsibility to begin on 06/21/18. Auth#[id number] AYDE Page, DRILL [employer] SET UP OPERATOR RADIAL
--- NOTE | 2018-06-20 15:17 | CASEMGMT ---
Social Work Spoke with patient in room. This social group worker communicating to patient that continued stay approval has been denied with last cover day being 06/20/18 and patient to discharge or financial responsibility to begin on 06/21/18. Patient planning to discharge to home with family. This social group worker communicating that physical and occupational therapy as well as group home is recommending for patient to continue with services within the home. Patient is agreeable to recommendation and requesting for home health care to be set up through [facility]. Patient reporting to have all needed durable medical equipment already set up within the home. Patient reporting that patient daughterNanci will be offering support for patient within the home. Patient is agreeable to this social group worker contacting Nanci in regards to discharge date and plan. Telephone call to Nanci Christine agreeable to all discharge planning and confirming all above information. Nanci reporting to be able to provide transportation to home for patient. Support given. [facility], Intake. This social group worker making referral for physical and occupational therapy as well as group home. Clinical information faxed. Will faxed discharge orders when obtained. Proposed discharge date: 06/21/18 PLAN: Discharge to home with 24hr care and home health services. AYDE Page, ASSOCIATE PROFESSOR OF LIBRARY MEDIA
--- NOTE | 2018-06-20 16:57 | PCM.PN.NEU ---
Subjective: Patient seen and examined. Having some pain in left hand and foot, this is the side of her stroke, however this pain is more joint related, then nerve. She is tolerating therapy. Will be discharged home tomorrow with family and home health - PT/OT/SN, will make follow up appointments with Neurology and a referral appointment with a Associate Medical Director. - Physical Exam General: Alert, Oriented x3, Cooperative HEENT: Atraumatic, PERRLA, EOMI, Normocephalic Neck: Supple, No JVD, Negative Carotid Bruits Lungs: Clear to auscultation, Normal air movement Cardiovascular: Regular rate, No murmurs Abdomen: Bowel Sounds Present, Soft, Non Tender Extremities: No edema, Capillary Refill Less than 3 Seconds Skin: No rashes, No breakdown Musculoskeletal: No Tenderness to Palpation of Joints or Extremities Neurological: Cranial nerves II-XII grossly intact Psych/Mental Status: Normal Affect, Appropriate, Alert and oriented to time, place, person, mood and affect Vital Signs Temp Pulse Resp BP Pulse Ox 97.9 F 62 16 155/74 H 93 06/20/18 07:45 06/20/18 07:45 06/20/18 07:45 06/20/18 07:45 06/20/18 07:45 Oxygen Delivery Method Room Air Weight: 94 kg Body Mass Index (BMI) 36.7 Finger Stick Blood Glucose 221 Intake and Output for Last 24 Hours 06/18/18 06/19/18 06/20/18 23:59 23:59 23:59 Intake Total 720 / 720 840 / 840 480 / 480 Balance 720 / 720 840 / 840 480 / 480 POC Glucose 06/20/18 06/20/18 06/19/18 11:33 06:40 22:46 POC Glucose 270 H 183 H 300 H Active Medications Acetaminophen (Tylenol) 500 mg PO Q8H PRN PRN PRN Reason: PAIN Last Admin: 06/12/18 21:15 Dose: 500 mg Amlodipine Besylate (Norvasc) 10 mg PO DAILY [facility] Last Admin: 06/20/18 10:08 Dose: 10 mg Aspirin (Aspirin, Baby) 81 mg PO DAILY@0800 [facility] Last Admin: 06/20/18 10:09 Dose: 81 mg Atorvastatin Calcium (Lipitor) 40 mg PO QHS [facility] Last Admin: 12/09/18 22:40 Dose: 40 mg Baclofen (Lioresal) 20 mg PO TID [facility] Last Admin: 06/20/18 15:36 Dose: 20 mg Bisacodyl (Dulcolax) 10 mg RECTAL .PRN X 1 PRN PRN Reason: Constipation Clopidogrel Bisulfate (Plavix) 75 mg PO DAILY [facility] Last Admin: 06/20/18 10:12 Dose: 75 mg Enoxaparin Sodium (Lovenox) 40 mg SC DAILY@0600 [facility] Last Admin: 06/20/18 05:52 Dose: 40 mg Escitalopram Oxalate (Lexapro) 20 mg PO QHS [facility] Last Admin: 06/19/18 22:40 Dose: 20 mg Gabapentin (Neurontin) 200 mg PO TIDCM [facility] Last Admin: 06/20/18 12:10 Dose: 200 mg Galantamine Hydrobromide (Razadyne) 12 mg PO BID [facility] Last Admin: 06/20/18 10:12 Dose: 12 mg Glimepiride (Amaryl) 2 mg PO DAILY@0800 [facility] Last Admin: 06/20/18 10:09 Dose: 2 mg Insulin Human Lispro (Humalog Kwikpen (Bkc)) 0 unit SC [facility]; Protocol Last Admin: 06/20/18 12:10 Dose: 4 u Lisinopril (Zestril) 20 mg PO DAILY [facility] Last Admin: 06/20/18 10:08 Dose: 20 mg Magnesium Hydroxide (Milk Of Magnesia) 30 ml PO .PRN X 1 PRN PRN Reason: Constipation Melatonin (Melatonin) 3 mg PO QHS [facility] Last Admin: 06/19/18 22:40 Dose: 3 mg Memantine (Namenda) 10 mg PO BID [facility] Last Admin: 06/20/18 10:10 Dose: 10 mg Polyethylene Glycol (Miralax) 17 gm PO BID [facility] Last Admin: 06/20/18 10:10 Dose: 17 gm Senna/Docusate Sodium (Senokot-S, Courtney-Colace) 2 tablet PO BID [facility] Last Admin: 06/20/18 10:10 Dose: 2 tablet Medical Necessity - Tobacco Use Smoking Status: Former smoker Assessment/Plan All Active Problems UTI (urinary tract infection) (Acute) Difficulty walking (Acute) mechanical fall (Acute) Physical debility (Acute) Weakness (Acute) Left hemiparesis (Acute) Confusion (Acute) The patient is a 72 year old CF with PMH HTN, HLD, DM, DM neuropathy H/O stroke with residual left leg weakness, Dementia, depression admitted to [facility] IP RU with debility s/p TIA following bladder stimulator placement, for > 3 hrs therapy daily, with the aim of returning back home at or near her prior level of functional independence. Patient was admitted to [facility] with right facial droop and slurred speech on 06/08/18 following bladder stimulator placement by Dr. Brito on 06/08/18, had NIHSS of 3 per ED documentation, was not a tpa candidate per documentation, had unremarkable CT head, CTA head/neck showed right ICA 70% stenosis and Left ICA < 50% stenosis, TTE showed EF 65%, with normal LA size, MRI brain could not be done due to bladder stimulator, LDL was 32. Has been on ASA/Plavix and Lipitor at baseline since her last stroke. Plan -PT for gait stability -OT for ADLs -ST for speech, swallow evaluation and cognitive evaluation. -Analgesics as needed -Bowel protocol -Recent TIA/H/O stroke- on ASA/Plavix and Lipitor, ASA/Plavix was restarted during inpatient hospitalization after urology clearance and per hospitalist recommendations. No bleeding documented, tolerating medication well -HTN- on Lisinopril, uncontrolled HTN, will add Amlodipine 5 mg PO once daily -HLD- on Lipitor -DM- on Glimepiride, and insulin sliding scale, need better control, will defer to hospitalist -DM neuropathy- on Gabapentin -Has B/L LE swelling- LE venous Doppler reported negative on 06/08/18 -Dementia- on Galantamine and Namenda -Depression- on Lexapro -Fall precautions -DVT prophylaxis- on Lovenox, started after urology clearance from Dr. Brito -Further medical management per hospitalist recommendations - Left sided swelling and discomfort -> ordered Doppler of upper and lower extremity - No showering until follow up in Dr. Brito's office. - Plan is to discharge home tomorrow with family and home health - PT/OT/SN and all follow up appointments.
--- NOTE | 2018-06-20 17:02 | PN.NEURO_ITS ---
Subjective: Patient seen and examined. Having some pain in left hand and foot, this is the side of her stroke, however this pain is more joint related, then nerve. She is tolerating therapy. Will be discharged home tomorrow with family and home health - PT/OT/SN, will make follow up appointments with Neurology and a referral appointment with a Insole Tack Puller Hand. - Physical Exam General: Alert, Oriented x3, Cooperative HEENT: Atraumatic, PERRLA, EOMI, Normocephalic Neck: Supple, No JVD, Negative Carotid Bruits Lungs: Clear to auscultation, Normal air movement Cardiovascular: Regular rate, No murmurs Abdomen: Bowel Sounds Present, Soft, Non Tender Extremities: No edema, Capillary Refill Less than 3 Seconds Skin: No rashes, No breakdown Musculoskeletal: No Tenderness to Palpation of Joints or Extremities Neurological: Cranial nerves II-XII grossly intact Psych/Mental Status: Normal Affect, Appropriate, Alert and oriented to time, place, person, mood and affect Vital Signs Temp Pulse Resp BP Pulse Ox 97.9 F 62 16 155/74 H 93 06/20/18 07:45 06/20/18 07:45 06/20/18 07:45 06/20/18 07:45 06/20/18 07:45 Oxygen Delivery Method Room Air Weight: 94 kg Body Mass Index (BMI) 36.7 Finger Stick Blood Glucose 221 Intake and Output for Last 24 Hours 06/18/18 06/19/18 06/20/18 23:59 23:59 23:59 Intake Total 720 / 720 840 / 840 480 / 480 Balance 720 / 720 840 / 840 480 / 480 POC Glucose 06/20/18 06/20/18 06/19/18 11:33 06:40 22:46 POC Glucose 270 H 183 H 300 H Active Medications Acetaminophen (Tylenol) 500 mg PO Q8H PRN PRN PRN Reason: PAIN Last Admin: 06/12/18 21:15 Dose: 500 mg Amlodipine Besylate (Norvasc) 10 mg PO DAILY [facility] Last Admin: 06/20/18 10:08 Dose: 10 mg Aspirin (Aspirin, Baby) 81 mg PO DAILY@0800 [facility] Last Admin: 06/20/18 10:09 Dose: 81 mg Atorvastatin Calcium (Lipitor) 40 mg PO QHS [facility] Last Admin: 12/09/18 22:40 Dose: 40 mg Baclofen (Lioresal) 20 mg PO TID [facility] Last Admin: 06/20/18 15:36 Dose: 20 mg Bisacodyl (Dulcolax) 10 mg RECTAL .PRN X 1 PRN PRN Reason: Constipation Clopidogrel Bisulfate (Plavix) 75 mg PO DAILY [facility] Last Admin: 06/20/18 10:12 Dose: 75 mg Enoxaparin Sodium (Lovenox) 40 mg SC DAILY@0600 [facility] Last Admin: 06/20/18 05:52 Dose: 40 mg Escitalopram Oxalate (Lexapro) 20 mg PO QHS [facility] Last Admin: 06/19/18 22:40 Dose: 20 mg Gabapentin (Neurontin) 200 mg PO TIDCM [facility] Last Admin: 06/20/18 12:10 Dose: 200 mg Galantamine Hydrobromide (Razadyne) 12 mg PO BID [facility] Last Admin: 06/20/18 10:12 Dose: 12 mg Glimepiride (Amaryl) 2 mg PO DAILY@0800 [facility] Last Admin: 06/20/18 10:09 Dose: 2 mg Insulin Human Lispro (Humalog Kwikpen (Bkc)) 0 unit SC [facility]; Protocol Last Admin: 06/20/18 12:10 Dose: 4 u Lisinopril (Zestril) 20 mg PO DAILY [facility] Last Admin: 06/20/18 10:08 Dose: 20 mg Magnesium Hydroxide (Milk Of Magnesia) 30 ml PO .PRN X 1 PRN PRN Reason: Constipation Melatonin (Melatonin) 3 mg PO QHS [facility] Last Admin: 06/19/18 22:40 Dose: 3 mg Memantine (Namenda) 10 mg PO BID [facility] Last Admin: 06/20/18 10:10 Dose: 10 mg Polyethylene Glycol (Miralax) 17 gm PO BID [facility] Last Admin: 06/20/18 10:10 Dose: 17 gm Senna/Docusate Sodium (Senokot-S, Courtney-Colace) 2 tablet PO BID [facility] Last Admin: 06/20/18 10:10 Dose: 2 tablet Medical Necessity - Tobacco Use Smoking Status: Former smoker Assessment/Plan All Active Problems UTI (urinary tract infection) (Acute) Difficulty walking (Acute) mechanical fall (Acute) Physical debility (Acute) Weakness (Acute) Left hemiparesis (Acute) Confusion (Acute) The patient is a 72 year old CF with PMH HTN, HLD, DM, DM neuropathy H/O stroke with residual left leg weakness, Dementia, depression admitted to [facility] IP RU with debility s/p TIA following bladder stimulator placement, for > 3 hrs therapy daily, with the aim of returning back home at or near her prior level of functional independence. Patient was admitted to [facility] with right facial droop and slurred speech on 06/08/18 following bladder stimulator placement by Dr. Brito on 06/08/18, had NIHSS of 3 per ED documentation, was not a tpa candidate per documentation, had unremarkable CT head, CTA head/neck showed right ICA 70% stenosis and Left ICA < 50% stenosis, TTE showed EF 65%, with normal LA size, MRI brain could not be done due to bladder stimulator, LDL was 32. Has been on ASA/Plavix and Lipitor at baseline since her last stroke. Plan -PT for gait stability -OT for ADLs -ST for speech, swallow evaluation and cognitive evaluation. -Analgesics as needed -Bowel protocol -Recent TIA/H/O stroke- on ASA/Plavix and Lipitor, ASA/Plavix was restarted during inpatient hospitalization after urology clearance and per hospitalist recommendations. No bleeding documented, tolerating medication well -HTN- on Lisinopril, uncontrolled HTN, will add Amlodipine 5 mg PO once daily -HLD- on Lipitor -DM- on Glimepiride, and insulin sliding scale, need better control, will defer to hospitalist -DM neuropathy- on Gabapentin -Has B/L LE swelling- LE venous Doppler reported negative on 06/08/18 -Dementia- on Galantamine and Namenda -Depression- on Lexapro -Fall precautions -DVT prophylaxis- on Lovenox, started after urology clearance from Dr. Brito -Further medical management per hospitalist recommendations - Left sided swelling and discomfort -> ordered Doppler of upper and lower extremity - No showering until follow up in Dr. Brito's office. - Plan is to discharge home tomorrow with family and home health - PT/OT/SN and all follow up appointments.
[2018-06-20 17:04] LABS: Bedside Glucose 192 mg/dL (70-110)
[2018-06-20 18:01] VITALS: BP 156/81; PULSE 74; RESP 16; TEMP 36.9; O2SAT 93
[2018-06-20 20:30] VITALS: PULSE 74; RESP 16; O2SAT 93
[2018-06-20] MEDS: Escitalopram Oxalate 20 MG Tablet PO (20:42)
[2018-06-20] MEDS: Atorvastatin Calcium 40 MG Tablet PO (20:43)
[2018-06-20] MEDS: MELATONIN 3 MG TABLET PO (20:44)
[2018-06-20 22:50] LABS: Bedside Glucose 263 mg/dL (70-110)
--- NOTE | 2018-06-21 05:01 | NURSING ---
Reviewed and agree with METAL FABRICATING INSPECTOR documentation and FIMs charting.
[2018-06-21] MEDS: Baclofen 10 MG Tablet 20 MG PO ×2 (05:40→12:16)
[2018-06-21 07:20] LABS: Bedside Glucose 155 mg/dL (70-110)
[2018-06-21] MEDS: Galantamine Hydrobromide 4 MG Tablet 12 MG PO (08:35)
[2018-06-21] MEDS: Memantine Hydrochloride 10 MG Tablet PO (08:36)
[2018-06-21] MEDS: amLODIPine 10 MG Tablet PO (08:36)
[2018-06-21] MEDS: Gabapentin 100 MG Capsule 200 MG PO ×2 (08:36→12:16)
[2018-06-21] MEDS: Lisinopril 20 MG Tablet PO (08:36)
[2018-06-21] MEDS: Insulin Lispro 100 UNIT/ML INSULN.PEN SC ×2 (08:36→12:16)
[2018-06-21] MEDS: Glimepiride 2 MG Tablet PO (08:36)
[2018-06-21] MEDS: Aspirin 81 MG TAB.CHEW PO (08:36)
[2018-06-21] MEDS: Clopidogrel Bisulfate 75 MG Tablet PO (08:36)
--- NOTE | 2018-06-21 08:48 | PCM.RU.DC ---
Rehab Discharge Summary DATE OF ADMISSION: 06/10/18 DATE OF DISCHARGE: 06/21/18 - Rehab Diagnosis Debility - Physical Exam General: Alert, Oriented x3, Cooperative HEENT: Atraumatic, PERRLA, EOMI, Normocephalic Neck: Supple, No JVD, Negative Carotid Bruits Lungs: Clear to auscultation, Normal air movement Cardiovascular: Regular rate, No murmurs Abdomen: Bowel Sounds Present, Soft, Non Tender Extremities: No edema, Capillary Refill Less than 3 Seconds Skin: No rashes, No breakdown Musculoskeletal: No Tenderness to Palpation of Joints or Extremities Neurological: Cranial nerves II-XII grossly intact Psych/Mental Status: Alert and oriented to time, place, person, mood and affect Vital Signs Temp Pulse Resp BP Pulse Ox 98.5 F 74 16 156/81 H 93 06/20/18 18:01 06/20/18 20:30 06/20/18 20:30 06/20/18 18:01 06/20/18 20:30 Oxygen Delivery Method Room Air Weight: 94 kg Body Mass Index (BMI) 36.7 Finger Stick Blood Glucose 221 Intake and Output for Last 24 Hours 06/19/18 06/20/18 06/21/18 23:59 23:59 23:59 Intake Total 840 / 840 480 / 480 150 / 150 Balance 840 / 840 480 / 480 150 / 150 POC Glucose 06/21/18 06/20/18 06/20/18 06:27 21:20 16:46 POC Glucose 155 H 263 H 192 H 06/20/18 11:33 POC Glucose 270 H Active Medications Acetaminophen (Tylenol) 500 mg PO Q8H PRN PRN PRN Reason: PAIN Last Admin: 06/12/18 21:15 Dose: 500 mg Amlodipine Besylate (Norvasc) 10 mg PO DAILY [facility] Last Admin: 06/21/18 08:36 Dose: 10 mg Aspirin (Aspirin, Baby) 81 mg PO DAILY@0800 [facility] Last Admin: 06/21/18 08:36 Dose: 81 mg Atorvastatin Calcium (Lipitor) 40 mg PO QHS [facility] Last Admin: 06/20/18 20:43 Dose: 40 mg Baclofen (Lioresal) 20 mg PO TID [facility] Last Admin: 06/21/18 05:40 Dose: 20 mg Bisacodyl (Dulcolax) 10 mg RECTAL .PRN X 1 PRN PRN Reason: Constipation Clopidogrel Bisulfate (Plavix) 75 mg PO DAILY [facility] Last Admin: 06/21/18 08:36 Dose: 75 mg Enoxaparin Sodium (Lovenox) 40 mg SC DAILY@0600 [facility] Last Admin: 06/21/18 08:44 Dose: Not Given Escitalopram Oxalate (Lexapro) 20 mg PO QHS [facility] Last Admin: 06/20/18 20:42 Dose: 20 mg Gabapentin (Neurontin) 200 mg PO TIDCM [facility] Last Admin: 06/21/18 08:36 Dose: 200 mg Galantamine Hydrobromide (Razadyne) 12 mg PO BID [facility] Last Admin: 06/21/18 08:35 Dose: 12 mg Glimepiride (Amaryl) 2 mg PO DAILY@0800 [facility] Last Admin: 06/21/18 08:36 Dose: 2 mg Insulin Human Lispro (Humalog Kwikpen (Bkc)) 0 unit SC [facility]; Protocol Last Admin: 06/21/18 08:36 Dose: 1 u Lisinopril (Zestril) 20 mg PO DAILY [facility] Last Admin: 06/21/18 08:36 Dose: 20 mg Magnesium Hydroxide (Milk Of Magnesia) 30 ml PO .PRN X 1 PRN PRN Reason: Constipation Melatonin (Melatonin) 3 mg PO QHS [facility] Last Admin: 06/20/18 20:44 Dose: 3 mg Memantine (Namenda) 10 mg PO BID [facility] Last Admin: 06/21/18 08:36 Dose: 10 mg Polyethylene Glycol (Miralax) 17 gm PO BID [facility] Last Admin: 06/21/18 05:39 Dose: Not Given Senna/Docusate Sodium (Senokot-S, Courtney-Colace) 2 tablet PO BID [facility] Last Admin: 06/21/18 05:40 Dose: Not Given Discharge Diet: 1999 Calorie Control Diet, Carb Control Diet Discharge Activity: May Not Drive, Use Walker, - - not soak in a tub or shower until cleared by Urology Weight Bearing Status: Weight bearing as tolerated Call your doctor if your incision/area has: Increased Pain/ Swelling, Increased Redness, Foul Smelling Discharge, Swelling at the incision site Call your doctor if you observe: Fever of 101 or Higher, Coldness, Increased Pain, Numbness or Tingling, Change in Color, Inability to urinate, Inability to have a bowel movement, Using more than one pad per hour, Shortness of breath, Dizziness, Fainting spells, Swelling in the ankles, Chest pain, Prolonged hiccoughing, Increased palpitations (irregular heartbeat), Calf discomfort, Uncontrolled pain Home Medications: Medications to take at Discharge Escitalopram Oxalate [Lexapro] 20 mg PO QHS 06/14/17 Gabapentin [Neurontin] 200 mg PO TIDCM 06/14/17 Baclofen 20 mg PO TID 06/01/18 Galantamine HBr [Galantamine ER] 24 mg PO DAILY 06/01/18 Memantine HCl 10 mg PO BID 06/08/18 Acetaminophen [Tylenol] 500 mg PO PRN 06/10/18 Aspirin [Aspirin, Baby] 81 mg PO DAILY@0800 06/10/18 Atorvastatin Calcium [Lipitor] 40 mg PO QHS 06/10/18 Clopidogrel Bisulfate [Plavix] 75 mg PO DAILY 06/10/18 Lisinopril [Zestril] 20 mg PO DAILY 06/10/18 Amlodipine [Norvasc] 10 mg PO DAILY #60 tablet 06/20/18 Glimepiride [Amaryl] 2 mg PO DAILY@0800 #60 tablet 06/20/18 Melatonin 3 mg PO QHS tablet 06/20/18 Following Prescrptions Were Given to Patient: Amlodipine [Norvasc] 10 mg PO DAILY #60 tablet Glimepiride [Amaryl] 2 mg PO DAILY@0800 #60 tablet Primary Care Physician: Bakari Ware Chi, MD [Primary Care Provider] - Please Follow Up With: [facility] Please Follow Up With: Becky Burrows NP-C - [facility] When: 08/23/18 @ 1:30 Disposition: Home with Home Health Minutes spent on discharge:: 40 Patient Condition:: Good Rehab Course The patient is a 72 year old CF with PMH HTN, HLD, DM, DM neuropathy H/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 Patient was admitted to [facility] with right facial droop and slurred speech on 06/08/18 following bladder stimulator placement by Dr. Brito on 06/08/18, had NIHSS of 3 per ED documentation, was not a tpa candidate per documentation, had unremarkable CT head, CTA head/neck showed right ICA 70% stenosis and Left ICA < 50% stenosis, TTE showed EF 65%, with normal LA size, MRI brain could not be done due to bladder stimulator, LDL was 32. Has been on ASA/Plavix and Lipitor at baseline since her last stroke. Per patient she lives with her daughter and daughter's BF, uses walker to ambulate, does not drive, has 2 steps going into the house, does not use the basement or the 2nd floor. While in the Rehab unit her medical conditions were monitored. During her stay she had bilateral lower extremity swelling and pain, Dollar showed no acute DVT. The rest of her stay was uncomplicated and she was able to discharge home on 06/21/18 to complete the remainder of her care as an outpatient. Summary of Care: -PT for gait stability -OT for ADLs -ST for speech, swallow evaluation and cognitive evaluation. -Analgesics as needed -Bowel protocol -Recent TIA/H/O stroke- on ASA/Plavix and Lipitor, ASA/Plavix was restarted during inpatient hospitalization after urology clearance and per hospitalist recommendations. No bleeding documented, tolerating medication well -HTN- on Lisinopril, uncontrolled HTN, will add Amlodipine 5 mg PO once daily -HLD- on Lipitor -DM- on Glimepiride, and insulin sliding scale, need better control, will defer to hospitalist -DM neuropathy- on Gabapentin -Has B/L LE swelling- LE venous Doppler reported negative on 06/08/18 -Dementia- on Galantamine and Namenda -Depression- on Lexapro -Fall precautions -DVT prophylaxis- on Lovenox, started after urology clearance from Dr. Brito -Further medical management per hospitalist recommendations - Left sided swelling and discomfort -> ordered Doppler of upper and lower extremity - No showering until follow up in Dr. Brito's office. - Plan is to discharge home tomorrow with family and home health - PT/OT/SN and all follow up appointments. Summary of Therapy Sessions: With Physical therapy, she is able to walk about 50 feet with a walker at contact guard. She has gone up and down 5 steps using 2 hand rails with a light hand for balance. With Occupational therapy, she is able to do her personal care and grooming while sitting at set up level. She is able to bath her upper body with out assistance, but requires max assist with her lower body. With nursing, pain is well controlled, she is still having episodes of incontinence. The family noted her bladder stimulator is off contacted Urology. Dr. Brito remotely turned off the stimulator. She is Scheduled to have the Stimulator removed on Wednesday06/22/[address] Brito. Meaningful Use Info Meaningful Use Diagnoses (Choose all that apply): Ischemic CVA - CVA Therapy Assessed for PT,OT and/or ST?: Yes - Ischemic Stroke Antithrombotic order at d/c?: Yes Dx of Atrial fib/flutter?: No Anticoagulant at discharge?: Yes Statins at discharge?: Yes Primary Dx Acute Ischemic CVA?: Yes IV tPA ordered during stay?: No Reason IV t-PA not ordered: Medical Contraindication
--- NOTE | 2018-06-21 08:52 | DS.PCM_ITS ---
Rehab Discharge Summary DATE OF ADMISSION: 06/10/18 DATE OF DISCHARGE: 06/21/18 - Rehab Diagnosis Debility - Physical Exam General: Alert, Oriented x3, Cooperative HEENT: Atraumatic, PERRLA, EOMI, Normocephalic Neck: Supple, No JVD, Negative Carotid Bruits Lungs: Clear to auscultation, Normal air movement Cardiovascular: Regular rate, No murmurs Abdomen: Bowel Sounds Present, Soft, Non Tender Extremities: No edema, Capillary Refill Less than 3 Seconds Skin: No rashes, No breakdown Musculoskeletal: No Tenderness to Palpation of Joints or Extremities Neurological: Cranial nerves II-XII grossly intact Psych/Mental Status: Alert and oriented to time, place, person, mood and affect Vital Signs Temp Pulse Resp BP Pulse Ox 98.5 F 74 16 156/81 H 93 06/20/18 18:01 06/20/18 20:30 06/20/18 20:30 06/20/18 18:01 06/20/18 20:30 Oxygen Delivery Method Room Air Weight: 94 kg Body Mass Index (BMI) 36.7 Finger Stick Blood Glucose 221 Intake and Output for Last 24 Hours 06/19/18 06/20/18 06/21/18 23:59 23:59 23:59 Intake Total 840 / 840 480 / 480 150 / 150 Balance 840 / 840 480 / 480 150 / 150 POC Glucose 06/21/18 06/20/18 06/20/18 06:27 21:20 16:46 POC Glucose 155 H 263 H 192 H 06/20/18 11:33 POC Glucose 270 H Active Medications Acetaminophen (Tylenol) 500 mg PO Q8H PRN PRN PRN Reason: PAIN Last Admin: 06/12/18 21:15 Dose: 500 mg Amlodipine Besylate (Norvasc) 10 mg PO DAILY [facility] Last Admin: 06/21/18 08:36 Dose: 10 mg Aspirin (Aspirin, Baby) 81 mg PO DAILY@0800 [facility] Last Admin: 06/21/18 08:36 Dose: 81 mg Atorvastatin Calcium (Lipitor) 40 mg PO QHS [facility] Last Admin: 06/20/18 20:43 Dose: 40 mg Baclofen (Lioresal) 20 mg PO TID [facility] Last Admin: 06/21/18 05:40 Dose: 20 mg Bisacodyl (Dulcolax) 10 mg RECTAL .PRN X 1 PRN PRN Reason: Constipation Clopidogrel Bisulfate (Plavix) 75 mg PO DAILY [facility] Last Admin: 06/21/18 08:36 Dose: 75 mg Enoxaparin Sodium (Lovenox) 40 mg SC DAILY@0600 [facility] Last Admin: 06/21/18 08:44 Dose: Not Given Escitalopram Oxalate (Lexapro) 20 mg PO QHS [facility] Last Admin: 06/20/18 20:42 Dose: 20 mg Gabapentin (Neurontin) 200 mg PO TIDCM [facility] Last Admin: 06/21/18 08:36 Dose: 200 mg Galantamine Hydrobromide (Razadyne) 12 mg PO BID [facility] Last Admin: 06/21/18 08:35 Dose: 12 mg Glimepiride (Amaryl) 2 mg PO DAILY@0800 [facility] Last Admin: 06/21/18 08:36 Dose: 2 mg Insulin Human Lispro (Humalog Kwikpen (Bkc)) 0 unit SC [facility]; Protocol Last Admin: 06/21/18 08:36 Dose: 1 u Lisinopril (Zestril) 20 mg PO DAILY [facility] Last Admin: 06/21/18 08:36 Dose: 20 mg Magnesium Hydroxide (Milk Of Magnesia) 30 ml PO .PRN X 1 PRN PRN Reason: Constipation Melatonin (Melatonin) 3 mg PO QHS [facility] Last Admin: 06/20/18 20:44 Dose: 3 mg Memantine (Namenda) 10 mg PO BID [facility] Last Admin: 06/21/18 08:36 Dose: 10 mg Polyethylene Glycol (Miralax) 17 gm PO BID [facility] Last Admin: 06/21/18 05:39 Dose: Not Given Senna/Docusate Sodium (Senokot-S, Courtney-Colace) 2 tablet PO BID [facility] Last Admin: 06/21/18 05:40 Dose: Not Given Discharge Diet: 1999 Calorie Control Diet, Carb Control Diet Discharge Activity: May Not Drive, Use Walker, - - not soak in a tub or shower until cleared by Urology Weight Bearing Status: Weight bearing as tolerated Call your doctor if your incision/area has: Increased Pain/ Swelling, Increased Redness, Foul Smelling Discharge, Swelling at the incision site Call your doctor if you observe: Fever of 101 or Higher, Coldness, Increased Pain, Numbness or Tingling, Change in Color, Inability to urinate, Inability to have a bowel movement, Using more than one pad per hour, Shortness of breath, Dizziness, Fainting spells, Swelling in the ankles, Chest pain, Prolonged hiccoughing, Increased palpitations (irregular heartbeat), Calf discomfort, Uncontrolled pain Home Medications: Medications to take at Discharge Escitalopram Oxalate [Lexapro] 20 mg PO QHS 06/14/17 Gabapentin [Neurontin] 200 mg PO TIDCM 06/14/17 Baclofen 20 mg PO TID 06/01/18 Galantamine HBr [Galantamine ER] 24 mg PO DAILY 06/01/18 Memantine HCl 10 mg PO BID 06/08/18 Acetaminophen [Tylenol] 500 mg PO PRN 06/10/18 Aspirin [Aspirin, Baby] 81 mg PO DAILY@0800 06/10/18 Atorvastatin Calcium [Lipitor] 40 mg PO QHS 06/10/18 Clopidogrel Bisulfate [Plavix] 75 mg PO DAILY 06/10/18 Lisinopril [Zestril] 20 mg PO DAILY 06/10/18 Amlodipine [Norvasc] 10 mg PO DAILY #60 tablet 06/20/18 Glimepiride [Amaryl] 2 mg PO DAILY@0800 #60 tablet 06/20/18 Melatonin 3 mg PO QHS tablet 06/20/18 Following Prescrptions Were Given to Patient: Amlodipine [Norvasc] 10 mg PO DAILY #60 tablet Glimepiride [Amaryl] 2 mg PO DAILY@0800 #60 tablet Primary Care Physician: Bakari Ware Chi, MD [Primary Care Provider] - Please Follow Up With: [facility] Please Follow Up With: Becky Burrows NP-C - [facility] When: 08/23/18 @ 1:30 Disposition: Home with Home Health Minutes spent on discharge:: 40 Patient Condition:: Good Rehab Course The patient is a 72 year old CF with PMH HTN, HLD, DM, DM neuropathy H/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 IP with debility s/p TIA following bladder stimulator placement, for > 3 hrs therapy daily, with the aim of returning back home at or near her prior level of functional independence. Patient was admitted to [facility] with right facial droop and slurred speech on 06/08/18 following bladder stimulator placement by Dr. Brito on 06/08/18, had NIHSS of 3 per ED documentation, was not a tpa candidate per documentation, had unremarkable CT head, CTA head/neck showed right ICA 70% stenosis and Left ICA < 50% stenosis, TTE showed EF 65%, with normal LA size, MRI brain could not be done due to bladder stimulator, LDL was 32. Has been on ASA/Plavix and Lipitor at baseline since her last stroke. Per patient she lives with her daughter and daughter's BF, uses walker to ambulate, does not drive, has 2 steps going into the house, does not use the basement or the 2nd floor. While in the Rehab unit her medical conditions were monitored. During her stay she had bilateral lower extremity swelling and pain, Dollar showed no acute DVT. The rest of her stay was uncomplicated and she was able to discharge home on 06/21/18 to complete the remainder of her care as an outpatient. Summary of Care: -PT for gait stability -OT for ADLs -ST for speech, swallow evaluation and cognitive evaluation. -Analgesics as needed -Bowel protocol -Recent TIA/H/O stroke- on ASA/Plavix and Lipitor, ASA/Plavix was restarted during inpatient hospitalization after urology clearance and per hospitalist recommendations. No bleeding documented, tolerating medication well -HTN- on Lisinopril, uncontrolled HTN, will add Amlodipine 5 mg PO once daily -HLD- on Lipitor -DM- on Glimepiride, and insulin sliding scale, need better control, will defer to hospitalist -DM neuropathy- on Gabapentin -Has B/L LE swelling- LE venous Doppler reported negative on 06/08/18 -Dementia- on Galantamine and Namenda -Depression- on Lexapro -Fall precautions -DVT prophylaxis- on Lovenox, started after urology clearance from Dr. Brito -Further medical management per hospitalist recommendations - Left sided swelling and discomfort -> ordered Doppler of upper and lower extremity - No showering until follow up in Dr. Brito's office. - Plan is to discharge home tomorrow with family and home health - PT/OT/SN and all follow up appointments. Summary of Therapy Sessions: With Physical therapy, she is able to walk about 50 feet with a walker at contact guard. She has gone up and down 5 steps using 2 hand rails with a light hand for balance. With Occupational therapy, she is able to do her personal care and grooming while sitting at set up level. She is able to bath her upper body with out assistance, but requires max assist with her lower body. With nursing, pain is well controlled, she is still having episodes of incontinence. The family noted her bladder stimulator is off contacted Urology. Dr. Brito remotely turned off the stimulator. She is Scheduled to have the Stimulator removed on Wednesday06/22/[address] Brito. Meaningful Use Info Meaningful Use Diagnoses (Choose all that apply): Ischemic CVA - CVA Therapy Assessed for PT,OT and/or ST?: Yes - Ischemic Stroke Antithrombotic order at d/c?: Yes Dx of Atrial fib/flutter?: No Anticoagulant at discharge?: Yes Statins at discharge?: Yes Primary Dx Acute Ischemic CVA?: Yes IV tPA ordered during stay?: No Reason IV t-PA not ordered: Medical Contraindication
[2018-06-21 09:16] VITALS: BP 157/85; PULSE 76; RESP 20; TEMP 36.4; O2SAT 95
--- NOTE | 2018-06-21 10:10 | DCINST_ITS ---
- Discharge Diagnoses Reason(s) for Visit for Discharge Instructions: Debility You will use the following diet at home:: Calorie/Carbohydrate Controlled (specify 1200, 1400, etc) - 2,000, Cardiac Your food should be the consistency of: Regular Your liquids should be the consistency of: Regular/Thin Discharge Activity: May Not Drive, May not drive while taking narcotic pain medications., May Not Shower, Use Walker, - - not soak in a tub or shower until cleared by Urology Weight Bearing Status: Weight bearing as tolerated Call your doctor if your incision/area has: Increased Pain/ Swelling, Increased Redness, Foul Smelling Discharge, Swelling at the incision site Call your doctor if you observe: Fever of 101 or Higher, Coldness, Increased Pain, Numbness or Tingling, Change in Color, Inability to urinate, Inability to have a bowel movement, Using more than one pad per hour, Shortness of breath, Dizziness, Fainting spells, Swelling in the ankles, Chest pain, Prolonged hiccoughing, Increased palpitations (irregular heartbeat), Calf discomfort, Uncontrolled pain Allergies/Adverse Reactions: Allergies promethazine HCl [From Phenergan] Adverse Reaction (Verified 06/08/18 10:32) Nausea Medications to take at Discharge Escitalopram Oxalate [Lexapro] 20 mg PO QHS 06/14/17 Gabapentin [Neurontin] 200 mg PO TIDCM 06/14/17 Baclofen 20 mg PO TID 06/01/18 Galantamine HBr [Galantamine ER] 24 mg PO DAILY 06/01/18 Memantine HCl 10 mg PO BID 06/08/18 Acetaminophen [Tylenol] 500 mg PO PRN 06/10/18 Aspirin [Aspirin, Baby] 81 mg PO DAILY@0800 06/10/18 Atorvastatin Calcium [Lipitor] 40 mg PO QHS 06/10/18 Clopidogrel Bisulfate [Plavix] 75 mg PO DAILY 06/10/18 Lisinopril [Zestril] 20 mg PO DAILY 06/10/18 Amlodipine [Norvasc] 10 mg PO DAILY #60 tablet 06/20/18 Glimepiride [Amaryl] 2 mg PO DAILY@0800 #60 tablet 06/20/18 Melatonin 3 mg PO QHS tablet 06/20/18 The following prescriptions were given: Amlodipine [Norvasc] 10 mg PO DAILY #60 tablet Glimepiride [Amaryl] 2 mg PO DAILY@0800 #60 tablet Primary Care Physician: Bakari Ware Chi, MD [Primary Care Provider] - Test Results: Test results from this visit will be discussed in further detail at your follow- up appointment, if applicable. Please Follow Up With: [facility] Please Follow Up With: Junaid Ware Please Follow Up With: Becky Burrows NP-C - [facility] When: 08/23/18 @ 1:30 Proposed Discharge Date: 06/21/18
[2018-06-21 12:10] LABS: Bedside Glucose 233 mg/dL (70-110)
[2018-06-21 14:00] VITALS: BP 157/85; PULSE 76; RESP 20; TEMP 36.4; O2SAT 95
--- NOTE | 2018-06-21 14:00 | NURSING ---
Discharged to home with daughter and daughter verbalized understanding to dc instruct given.
--- NOTE | 2018-06-21 16:44 | CASEMGMT ---
Social Work Faxed discharge information to [facility]. BO PageW, WARD HELPER
--- NOTE | 2018-06-21 17:00 | CASEMGMT ---
Insurance Notified insurance of patient discharge on 06/21/18 to home with daughter and home health care. Auth#[id number] AYDE Page, SOFTWARE SUPPORT REPRESENTATIVE
--- OUTSIDE RECORDS SUMMARY | 2018-08-05 16:35 | XMS RPT_ITS ---
:1945 Author Organization [place] Support Name Relationship Address Phone SAMIR DARON Unavailable [address] + [place] [address] ANGELA, SELVIN Unavailable Unavailable + [place] [address] R Unavailable Unavailable Unavailable SAMIR, DARON Unavailable [address] + [place] [address] ANGELA, SELVIN Unavailable Unavailable + [place] [address] R Unavailable Unavailable Unavailable SAMIR, DARON Unavailable [address] + [place] [address] ANGELA, SELVIN Unavailable Unavailable + [place] [address] R Unavailable Unavailable Unavailable SAMIR, DARON Unavailable [address] + [place] [address] ANGELA, SELVIN Unavailable Unavailable + [place] [address] R Unavailable Unavailable Unavailable SAMIR, DARON Unavailable [address] + [place] [address] ANGELA, SELVIN Unavailable Unavailable + [place] [address] R Unavailable Unavailable Unavailable SAMIR, DARON Unavailable [address] + [place] [address] ANGELA, SELVIN Unavailable Unavailable + [place] [address] R Unavailable Unavailable Unavailable SAMIR, DARON Unavailable [address] + [place] [address] ANGELA, SELVIN Unavailable Unavailable + [place] [address] R Unavailable Unavailable Unavailable SAMIR, DARON Unavailable [address] + [place] [address] ANGELA, SELVIN Unavailable Unavailable + [place] [address] R Unavailable Unavailable Unavailable SAMIR, DARON Unavailable [address] + [place] [address] ANGELA, SELVIN Unavailable Unavailable + [place] [address] R Unavailable Unavailable Unavailable SAMIR, DARON Unavailable [address] + [place] [address] ANGELA, SELVIN Unavailable Unavailable + [place] [address] R Unavailable Unavailable Unavailable SAMIR, DARON Unavailable [address] + [place] [address] ANGELA, SELVIN Unavailable Unavailable + [place] [address] R Unavailable Unavailable Unavailable SAMIR, DARON Unavailable [address] + [place] [address] ANGELA, SELVIN Unavailable Unavailable + [place] [address] R Unavailable Unavailable Unavailable SAMIR, DARON Unavailable [address] + [place] [address] ANGELA, SELVIN Unavailable Unavailable + [place] [address] R Unavailable Unavailable Unavailable SAMIR, DARON Unavailable [address] + [place] [address] ANGELA, SELVIN Unavailable Unavailable + [place] [address] R Unavailable Unavailable Unavailable SAMIR, DARON Unavailable [address] + [place] [address] ANGELA, SELVIN Unavailable Unavailable + [place] [address] R Unavailable Unavailable Unavailable SAMIR, DARON Unavailable [address] + [place] [address] ANGELA, SELVIN Unavailable Unavailable + [place] [address] R Unavailable Unavailable Unavailable SAMIR, DARON Unavailable [address] + [place] [address] ANGELA, SELVIN Unavailable Unavailable + [place] [address] R Unavailable Unavailable Unavailable SAMIR, DARON Unavailable [address] [phone] [place] [address] ANGELA, SELVIN Unavailable Unavailable + [place] [address] R Unavailable Unavailable Unavailable SAMIR, DARON Unavailable [address] [phone] [place] [address] ANGELA, SELVIN Unavailable Unavailable + [place] [address] R Unavailable Unavailable Unavailable SAMIR, DARON Unavailable [address] [phone] [place] [address] ANGELA, SELVIN Unavailable Unavailable + R Unavailable Unavailable Unavailable SAMIR, ADRON Unavailable [address] [phone] [place] [address] ANGELA, SELVIN Unavailable Unavailable + R Unavailable Unavailable Unavailable SAMIR, DARON Unavailable [address] [phone] [place] [address] ANGELA, SELVIN Unavailable . + ., [place] . R Unavailable Unavailable Unavailable SAMIR, DARON Unavailable [address] [phone] [place] [address] ANGELA, SELVIN Unavailable . + ., [place] . R Unavailable Unavailable Unavailable SAMIR, DARON Unavailable [address] [phone] [place] [address] ANGELA, SELVIN Unavailable . + ., [place] . R Unavailable Unavailable Unavailable Care Team Providers Name Role Phone Michael Wing Attending Unavailable Rolando Avila Referring Unavailable Talampas, Sophie Attending Unavailable Talampas, Sophie Primary Care Unavailable Talampas, Sophie Attending Unavailable Talampas, Sophie Primary Care Unavailable Talampas, Sophie Referring Unavailable Sarah Ladd Attending Unavailable Talampas, Sophie Primary Care Unavailable Markos, Paterson OUTREACH AND EDUCATION SOCIAL WORKER-C Attending Unavailable Markos, Becky OUTREACH AND EDUCATION SOCIAL WORKER-C Referring Unavailable Chaz, Bakari Chi Primary Care [...] Unknown N39.0 - Urinary Connor Brito Active [place] tract infection, [place] Community site not specified Hospital / N39.0(ICD-10) Repository 04/14/2018 Unknown E11.9 - Type 2 Chaz, Bakari Chi Active [place] diabetes mellitus Community without Hospital complications / Repository E11.9(ICD-10) 04/14/2018 Unknown E55.9 - Vitamin D Chaz, Bakari Chi Active [place] deficiency, Community unspecified / Hospital E55.9(ICD-10) Repository 04/14/2018 Unknown M25.579 - Pain in Chaz, Bakari Chi Active [place] unspecified ankle Community and joints of Hospital unspecified foot / Repository M25.579(ICD-10) 04/14/2018 Unknown M79.609 - Pain in Chaz, Bakari Chi Active [place] unspecified limb / Community M79.609(ICD-10) Hospital Repository 09/16/2017 Unknown E87.6 - Hypokalemia Chaz, Bakari Chi Active [place] / E87.6(ICD-10) [facility] Repository 08/18/2017 Unknown R20.0 - Anesthesia Becky Burrows Active [place] of skin / OUTREACH AND EDUCATION SOCIAL WORKER-C Community R20.0(ICD-10) Hospital Repository 08/18/2017 Unknown R25.2 - Cramp and MarkosBecky edouard Active [place] spasm / OUTREACH AND EDUCATION SOCIAL WORKER-C Community R25.2(ICD-10) Hospital Repository 08/18/2017 Unknown Z86.73 - Personal MarkosBecky edouard Active [place] history of OUTREACH AND EDUCATION SOCIAL WORKER-C Community transient ischemic Hospital attack (TIA), and Repository cerebral infarction without residual deficits / Z86.73(ICD-10) 07/28/2017 Unknown F11.20 - Opioid Basali, Ayman Active [place] dependence, Community uncomplicated / Hospital F11.20(ICD-10) Repository PROCEDURES PROCEDURES No Procedure Records FoundRESULTS RESULTS HISTORY AND PHYSICAL Observed: 06/28/2018 Status: F Source: [place] EXAM 1:04 PM [facility] HOSPITAL REPOSITORY [facility] Medical Records Department [address] [place] [address] History and Physical 06/11/182023 MR#: [id number] Acct: [id number] Name: YADI WESTFALL Rep #: [id number] : 1945 72 From: Abida Collins MD PCP: Chaz BERG,Bakari Correa Status: DIS IN Y Location: [id number] Problem List (1) CVA (cerebral infarction) Status: [...] left leg weakness, Dementia, depression admitted to [facility] IP with debility s/p TIA following bladder stimulator placement, for > 3 hrs therapy daily, with the aim of returning back home at or near her prior level of functional independence. 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 Patient was admitted to [facility] with right facial droop and slurred [...] recommendations Code Visit Inpatient E AND M: [id number] Init Hosp L3 06/28/18 1304 <Electronically signed by Abida Collins MD> Date Abida Collins MD Cosigner Signature: Date (if applicable) CC: Dexter Collins MD; Bakari Ware MD Signed OPERATIVE REPORT Observed: 06/22/2018 Status: F Source: [place] 7:45 AM [facility] REPOSITORY [facility] Medical Records Department [address] [place] [address] Operative Report 06/22/18 0742 MR#: [id number] Acct: [id number] Name: YADI WESTFALL Rep #: [id number] : 1945 72 From: Connor Brito MD PCP: Bakari Ware MD, Chi Status: [facility] Y Location: [place] [address] Report of Operation Date of Procedure: 06/22/18 [...] DISCHARGE INSTRUCTION Observed: 06/22/2018 Status: F Source: [place] 7:21 AM [facility] REPOSITORY [facility] Medical Records Department [address] [place] [address] Instructions for Home/Discharge Instructions 06/22/18719 MR#: [id number] Acct: [id number] Name: YADI WESTFALL Rep #: [id number] : 1945 72 From: Connor Brito MD [...] 06/22/2018 Status: F Source: [place] 6:40 AM [facility] REPOSITORY TYPE CODE TESTS RESULT OUT OF REFERENCE UNITS RANGE LAB L501.080 70-110 mg/dL High BEDSIDE GLU 211 Result Comment: MANAGEMENT OF PATIENT CARE PER NURSING PROTOCOL Performed By: #### L501.080 #### [facility] Point [facility] [address] [place] [address] BEDSIDE GLUCOSE Collected: 06/21/2018 Status: F Source: [place] 11:37 AM [facility] REPOSITORY TYPE CODE TESTS RESULT OUT OF REFERENCE UNITS RANGE LAB L501.080 70-110 mg/dL High BEDSIDE GLU 233 Result Comment: MANAGEMENT OF PATIENT CARE PER NURSING PROTOCOL Performed By: #### L501.080 #### [facility] Point of Care [address] [facility] [place] [address] DISCHARGE INSTRUCTION Observed: 06/21/2018 Status: F Source: [place] 11:35 AM [facility] REPOSITORY [facility] Medical Records Department [address] [place] [address] [place] [address] Instructions for Home/Discharge Instructions 06/21/18 1007 MR#: [id number] Acct: [id number] Name: YADI WESTFALL Rep #: [id number] : 1945 72 From: Becky Burrows OUTREACH AND EDUCATION SOCIAL WORKER-C PCP: Chaz MD,Bakari Chi Status: ADM IN [...] Date Becky HALE CC: Rolando Avila MD; Bakrai Ware MD DISCHARGE SUMMARY Observed: 06/21/2018 Status: F Source: [place] 11:34 AM [facility] REPOSITORY [facility] Medical Records Department [address] [place] [address] Discharge Summary 06/21/18 0848 MR#: [id number] Acct: [id number] Name: YADI WESTFALL Rep #: [id number] : 1945 72 From: Becky HALE PCP: Bakari Ware MD, Chi Status: ADM IN Location: [place] [address] Rehab Discharge Summary DATE OF ADMISSION: 06/10/18 [...] Amlodipine Besylate (Norvasc) 10 mg PO DAILY [facility] Last Admin: 06/21/18 08:36 Dose: 10 mg Aspirin (Aspirin, Baby) 81 mg PO DAILY@0800 [facility] Last Admin: 06/21/18 08:36 Dose: 81 mg Atorvastatin Calcium (Lipitor) 40 mg PO QHS [facility] Last Admin: 06/20/18 20:43 Dose: 40 mg Baclofen (Lioresal) 20 mg PO TID [facility] Last Admin: 06/21/18 05:40 Dose: 20 mg Bisacodyl (Dulcolax) 10 mg RECTAL .PRN X 1 PRN PRN Reason: Constipation Clopidogrel Bisulfate (Plavix) 75 mg PO DAILY [facility] Last Admin: 06/21/18 08:36 Dose: 75 mg Enoxaparin Sodium (Lovenox) 40 mg SC DAILY@0600 [facility] Last Admin: 06/21/18 08:44 Dose: Not Given Escitalopram Oxalate (Lexapro) 20 mg PO QHS [facility] Last Admin: 06/20/18 20:42 Dose: 20 mg Gabapentin (Neurontin) 200 mg PO TIDCM [facility] Last Admin: 06/21/18 08:36 Dose: 200 mg Galantamine Hydrobromide (Razadyne) 12 mg PO BID [facility] Last Admin: 06/21/18 08:35 Dose: 12 mg Glimepiride (Amaryl) 2 mg PO DAILY@0800 [facility] Last Admin: 06/21/18 08:36 Dose: 2 mg Insulin Human Lispro (Humalog Kwikpen (Bkc)) 0 unit SC ACHS [facility]; Protocol Last Admin: 06/21/18 08:36 Dose: 1 u Lisinopril (Zestril) 20 mg PO DAILY [facility] Last Admin: 06/21/18 08:36 Dose: 20 mg Magnesium Hydroxide (Milk Of Magnesia) 30 ml PO .PRN X 1 PRN PRN Reason: Constipation Melatonin (Melatonin) 3 mg PO QHS [facility] Last Admin: 06/20/18 20:44 Dose: 3 mg Memantine (Namenda) 10 mg PO BID [facility] Last Admin: 06/21/18 08:36 Dose: 10 mg Polyethylene Glycol (Miralax) 17 gm PO BID [facility] Last Admin: 06/21/18 05:39 Dose: Not Given Senna/Docusate Sodium (Senokot-S, Courtney-Colace) 2 tablet PO BID [facility] Last Admin: 06/21/18 05:40 Dose: Not [...] left leg weakness, Dementia, depression admitted to [facility] IP with debility s/p TIA following bladder stimulator placement, for > 3 hrs therapy daily, with the aim of returning back home at or near her prior level of functional independence. Patient was admitted to [facility] with right facial droop and slurred [...] 06/21/18 1134 <Electronically signed by Becky Burrows OUTREACH AND EDUCATION SOCIAL WORKER-C> Date Becky Burrows OUTREACH AND EDUCATION SOCIAL WORKER-C 06/21/18 1025<Electronically signed by Musa Llamas MD> Cosigner Signature (if applicable): Date Musa Llamas MD CC: OUTREACH AND EDUCATION SOCIAL WORKER Becky Burrows; Musa Llamas MD; Bakari Ware MD Signed BEDSIDE GLUCOSE Collected: 06/21/2018 Status: F Source: [place] 6:27 AM [facility] REPOSITORY TYPE CODE TESTS RESULT OUT OF REFERENCE UNITS RANGE LAB L501.080 70-110 mg/dL High BEDSIDE GLU 155 Result Comment: MANAGEMENT OF PATIENT CARE PER NURSING PROTOCOL Performed By: #### L501.080 #### [facility] Point of Care [address] [place] [address] BEDSIDE GLUCOSE Collected: 06/20/2018 Status: F Source: [place] 9:20 PM [facility] REPOSITORY TYPE CODE TESTS RESULT OUT OF REFERENCE UNITS RANGE LAB L501.080 70-110 mg/dL High BEDSIDE GLU 263 Result Comment: MANAGEMENT OF PATIENT CARE PER NURSING PROTOCOL Performed By: #### L501.080 #### [facility] Point of Care [address] [place] [address] BEDSIDE GLUCOSE Collected: 06/20/2018 Status: F Source: [place] 4:46 PM [facility] REPOSITORY TYPE CODE TESTS RESULT OUT OF REFERENCE UNITS RANGE LAB L501.080 70-110 mg/dL High BEDSIDE GLU 192 Result Comment: MANAGEMENT OF PATIENT CARE PER NURSING PROTOCOL Performed By: #### L501.080 #### [facility] Point of Care [address] [place] [address] BEDSIDE GLUCOSE Collected: 06/20/2018 Status: F Source: [place] 11:33 AM [facility] REPOSITORY TYPE CODE TESTS RESULT OUT OF REFERENCE UNITS RANGE LAB L501.080 70-110 mg/dL High BEDSIDE GLU 270 Result Comment: MANAGEMENT OF PATIENT CARE PER NURSING PROTOCOL Performed By: #### L501.080 #### [facility] Point of Care [address] [place] [address] BEDSIDE GLUCOSE Collected: 06/20/2018 Status: F Source: [place] 6:40 AM [facility] REPOSITORY TYPE CODE TESTS RESULT OUT OF REFERENCE UNITS RANGE LAB L501.080 70-110 mg/dL High BEDSIDE GLU 183 Result Comment: MANAGEMENT OF PATIENT CARE PER NURSING PROTOCOL Performed By: #### L501.080 #### [facility] Point of Care [address] [place] [address] BEDSIDE GLUCOSE Collected: 06/19/2018 Status: F Source: [place] 10:46 PM [facility] REPOSITORY TYPE CODE TESTS RESULT OUT OF REFERENCE UNITS RANGE LAB L501.080 70-110 mg/dL High BEDSIDE GLU 300 Result Comment: MANAGEMENT OF PATIENT CARE PER NURSING PROTOCOL Performed By: #### L501.080 #### [facility] Point of Care [address] [place] [address] BEDSIDE GLUCOSE Collected: 06/19/2018 Status: F Source: [place] 4:24 PM [facility] REPOSITORY TYPE CODE TESTS RESULT OUT OF REFERENCE UNITS RANGE LAB L501.080 70-110 mg/dL High BEDSIDE GLU 266 Result Comment: MANAGEMENT OF PATIENT CARE PER NURSING PROTOCOL Performed By: #### L501.080 #### [facility] Point of Care [address] [place] [address] BEDSIDE GLUCOSE Collected: 06/19/2018 Status: F Source: [place] 11:04 AM [facility] REPOSITORY TYPE CODE TESTS RESULT OUT OF REFERENCE UNITS RANGE LAB L501.080 70-110 mg/dL High BEDSIDE GLU 300 Result Comment: MANAGEMENT OF PATIENT CARE PER NURSING PROTOCOL Performed By: #### L501.080 #### [facility] Point of Care [address] [place] [address] BEDSIDE GLUCOSE Collected: 06/19/2018 Status: F Source: [place] 6:39 AM [facility] REPOSITORY TYPE CODE TESTS RESULT OUT OF REFERENCE UNITS RANGE LAB L501.080 70-110 mg/dL High BEDSIDE GLU 205 Result Comment: MANAGEMENT OF PATIENT CARE PER NURSING PROTOCOL Performed By: #### L501.080 #### [facility] Point of Care [address] [place] [address] BEDSIDE GLUCOSE Collected: 06/18/2018 Status: F Source: [place] 8:53 PM [facility] REPOSITORY TYPE CODE TESTS RESULT OUT OF REFERENCE UNITS RANGE LAB L501.080 70-110 mg/dL High BEDSIDE GLU 209 Result Comment: MANAGEMENT OF PATIENT CARE PER NURSING PROTOCOL Performed By: #### L501.080 #### [facility] Point of Care [address] [place] [address] BEDSIDE GLUCOSE Collected: 06/18/2018 Status: F Source: [place] 4:08 PM [facility] REPOSITORY TYPE CODE TESTS RESULT OUT OF REFERENCE UNITS RANGE LAB L501.080 70-110 mg/dL High BEDSIDE GLU 247 Result Comment: MANAGEMENT OF PATIENT CARE PER NURSING PROTOCOL Performed By: #### L501.080 #### [facility] Point of Care [address] [place] [address] BEDSIDE GLUCOSE Collected: 06/18/2018 Status: F Source: [place] 11:01 AM [facility] REPOSITORY TYPE CODE TESTS RESULT OUT OF REFERENCE UNITS RANGE LAB L501.080 70-110 mg/dL High BEDSIDE GLU 317 Result Comment: MANAGEMENT OF PATIENT CARE PER NURSING PROTOCOL Performed By: #### L501.080 #### [facility] Point of Care [address] [place] [address] BEDSIDE GLUCOSE Collected: 06/18/2018 Status: F Source: [place] 6:52 AM [facility] REPOSITORY TYPE CODE TESTS RESULT OUT OF REFERENCE UNITS RANGE LAB L501.080 70-110 mg/dL High BEDSIDE GLU 200 Result Comment: MANAGEMENT OF PATIENT CARE PER NURSING PROTOCOL Performed By: #### L501.080 #### [facility] Point of Care [address] [place] [address] BEDSIDE GLUCOSE Collected: 06/17/2018 Status: F Source: [place] 9:05 PM [facility] REPOSITORY TYPE CODE TESTS RESULT OUT OF REFERENCE UNITS RANGE LAB L501.080 70-110 mg/dL High BEDSIDE GLU 274 Result Comment: MANAGEMENT OF PATIENT CARE PER NURSING PROTOCOL Performed By: #### L501.080 #### [facility] Point of Care [address] [place] [address] BEDSIDE GLUCOSE Collected: 06/17/2018 Status: F Source: [place] 4:34 PM [facility] REPOSITORY TYPE CODE TESTS RESULT OUT OF REFERENCE UNITS RANGE LAB L501.080 70-110 mg/dL High BEDSIDE GLU 229 Result Comment: MANAGEMENT OF PATIENT CARE PER NURSING PROTOCOL Performed By: #### L501.080 #### [facility] Point of Care [address] [place] [address] BEDSIDE GLUCOSE Collected: 06/17/2018 Status: F Source: [place] 11:32 AM [facility] REPOSITORY TYPE CODE TESTS RESULT OUT OF REFERENCE UNITS RANGE LAB L501.080 70-110 mg/dL High BEDSIDE GLU 230 Result Comment: MANAGEMENT OF PATIENT CARE PER NURSING PROTOCOL Performed By: #### L501.080 #### [facility] Point of Care [address] [place] [address] VENOUS DUPLEX UPPER Observed: 06/17/2018 Status: F Source: [place] EXTREMITY 7:30 AM [facility] REPOSITORY [facility] Cardiovascular Services [address] [address] Venous Duplex US - Dean Extrem 06/13/18 1408 MR#: [id number] Acct: [id number] Name: YADI WESTFALL Rep #: [id number] : 1945 72 From: Luiz Simon MD [...] Date Dictated: 06/13/18 1408 Date Transcribed: 06/17/18728 Depalletizer Operator: Signed VENOUS DUPLEX LOWER Observed: 06/17/2018 Status: F Source: [place] EXTREMITY 7:07 AM [facility] REPOSITORY [facility] Cardiovascular Services [address] [place] [address] Venous Duplex US, Unilateral 06/13/18 1352 MR#: [id number] Acct: [id number] Name: YADI WESTFALL Rep #: [id number] : 1945 72 From: Luiz Simon MD [...] Date Dictated: 06/13/18 1352 Date Transcribed: 06/17/18706 Depalletizer Operator: Signed BEDSIDE GLUCOSE Collected: 06/17/2018 Status: F Source: [place] 6:59 AM [facility] REPOSITORY TYPE CODE TESTS RESULT OUT OF REFERENCE UNITS RANGE LAB L501.080 70-110 mg/dL High BEDSIDE GLU 190 Result Comment: MANAGEMENT OF PATIENT CARE PER NURSING PROTOCOL Performed By: #### L501.080 #### [facility] Point of Care [address] [place] [address] BEDSIDE GLUCOSE Collected: 06/16/2018 Status: F Source: [place] 9:21 PM [facility] REPOSITORY TYPE CODE TESTS RESULT OUT OF REFERENCE UNITS RANGE LAB L501.080 70-110 mg/dL High BEDSIDE GLU 262 Result Comment: MANAGEMENT OF PATIENT CARE PER NURSING PROTOCOL Performed By: #### L501.080 #### [facility] Point of Care [address] [place] [address] BEDSIDE GLUCOSE Collected: 06/16/2018 Status: F Source: [place] 5:04 PM [facility] REPOSITORY TYPE CODE TESTS RESULT OUT OF REFERENCE UNITS RANGE LAB L501.080 70-110 mg/dL High BEDSIDE GLU 247 Result Comment: MANAGEMENT OF PATIENT CARE PER NURSING PROTOCOL Performed By: #### L501.080 #### [facility] Point of Care [address] [place] [address] BEDSIDE GLUCOSE Collected: 06/16/2018 Status: F Source: [place] 11:37 AM [facility] REPOSITORY TYPE CODE TESTS RESULT OUT OF REFERENCE UNITS RANGE LAB L501.080 70-110 mg/dL High BEDSIDE GLU 266 Result Comment: MANAGEMENT OF PATIENT CARE PER NURSING PROTOCOL Performed By: #### L501.080 #### [facility] Point of Care [address] [place] [address] BEDSIDE GLUCOSE Collected: 06/16/2018 Status: F Source: [place] 6:31 AM [facility] REPOSITORY TYPE CODE TESTS RESULT OUT OF REFERENCE UNITS RANGE LAB L501.080 70-110 mg/dL High BEDSIDE GLU 172 Result Comment: MANAGEMENT OF PATIENT CARE PER NURSING PROTOCOL Performed By: #### L501.080 #### [facility] Point of Care [address] [place] [address] BEDSIDE GLUCOSE Collected: 06/15/2018 Status: F Source: [place] 11:13 PM [facility] REPOSITORY TYPE CODE TESTS RESULT OUT OF REFERENCE UNITS RANGE LAB L501.080 70-110 mg/dL High BEDSIDE GLU 275 Result Comment: MANAGEMENT OF PATIENT CARE PER NURSING PROTOCOL Performed By: #### L501.080 #### [facility] Point of Care [address] [place] [address] BEDSIDE GLUCOSE Collected: 06/15/2018 Status: F Source: [place] 4:09 PM [facility] REPOSITORY TYPE CODE TESTS RESULT OUT OF REFERENCE UNITS RANGE LAB L501.080 70-110 mg/dL High BEDSIDE GLU 202 Result Comment: MANAGEMENT OF PATIENT CARE PER NURSING PROTOCOL Performed By: #### L501.080 #### [facility] Point of Care [address] [place] [address] BEDSIDE GLUCOSE Collected: 06/15/2018 Status: F Source: [place] 11:56 AM [facility] REPOSITORY TYPE CODE TESTS RESULT OUT OF REFERENCE UNITS RANGE LAB L501.080 70-110 mg/dL High BEDSIDE GLU 179 Result Comment: MANAGEMENT OF PATIENT CARE PER NURSING PROTOCOL Performed By: #### L501.080 #### [facility] Point of Care [address] [place] [address] BEDSIDE GLUCOSE Collected: 06/15/2018 Status: F Source: [place] 7:23 AM [facility] REPOSITORY TYPE CODE TESTS RESULT OUT OF REFERENCE UNITS RANGE LAB L501.080 70-110 mg/dL High BEDSIDE GLU 179 Result Comment: MANAGEMENT OF PATIENT CARE PER NURSING PROTOCOL Performed By: #### L501.080 #### [facility] Point of Care [address] [place] [address] BEDSIDE GLUCOSE Collected: 06/14/2018 Status: F Source: [place] 9:47 PM [facility] REPOSITORY TYPE CODE TESTS RESULT OUT OF REFERENCE UNITS RANGE LAB L501.080 70-110 mg/dL High BEDSIDE GLU 231 Result Comment: MANAGEMENT OF PATIENT CARE PER NURSING PROTOCOL Performed By: #### L501.080 #### [facility] Point of Care [address] [place] [address] BEDSIDE GLUCOSE Collected: 06/14/2018 Status: F Source: [place] 4:59 PM [facility] REPOSITORY TYPE CODE TESTS RESULT OUT OF REFERENCE UNITS RANGE LAB L501.080 70-110 mg/dL High BEDSIDE GLU 214 Result Comment: MANAGEMENT OF PATIENT CARE PER NURSING PROTOCOL Performed By: #### L501.080 #### [facility] Point of Care [address] [place] [address] 12 LEAD ELECTROCARDIOGRAM Observed: 06/14/2018 Status: F Source: [place] 3:49 PM [facility] REPOSITORY [facility] Cardiovascular Services [address] [place] [address] 12 Lead EKG 06/09/18 1727 MR#: [id number] Acct: [id number] Name: YADI WESTFALL Rep #: [id number] : 1945 72 From: Bj Matute MD [...] Abnormal ECG Confirmed by JUJU BERG, BJ ([id number]), communications editor SAHARA TIPTON ([id number]) on 06/14/2018 3:48:29 PM Referred By: ELROY Confirmed By:BJ MATUTE MD 06/14/18 1548 Date Bj Matute MD CC: Rolando Avila MD; Bakari Ware MD Signed BEDSIDE GLUCOSE Collected: 06/14/2018 Status: F Source: [place] 11:36 AM [facility] REPOSITORY TYPE CODE TESTS RESULT OUT OF REFERENCE UNITS RANGE LAB L501.080 70-110 mg/dL High BEDSIDE GLU 152 Result Comment: MANAGEMENT OF PATIENT CARE PER NURSING PROTOCOL Performed By: #### L501.080 #### [facility] Point of Care [address] [place] [address] BEDSIDE GLUCOSE Collected: 06/14/2018 Status: F Source: [place] 7:02 AM [facility] REPOSITORY TYPE CODE TESTS RESULT OUT OF REFERENCE UNITS RANGE LAB L501.080 70-110 mg/dL High BEDSIDE GLU 181 Result Comment: MANAGEMENT OF PATIENT CARE PER NURSING PROTOCOL Performed By: #### L501.080 #### [facility] Point of Care [address] [place] [address] BEDSIDE GLUCOSE Collected: 06/13/2018 Status: F Source: [place] 9:43 PM [facility] REPOSITORY TYPE CODE TESTS RESULT OUT OF REFERENCE UNITS RANGE LAB L501.080 70-110 mg/dL High BEDSIDE GLU 245 Result Comment: MANAGEMENT OF PATIENT CARE PER NURSING PROTOCOL Performed By: #### L501.080 #### [facility] Point of Care [address] [place] [address] BEDSIDE GLUCOSE Collected: 06/13/2018 Status: F Source: [place] 5:08 PM [facility] REPOSITORY TYPE CODE TESTS RESULT OUT OF REFERENCE UNITS RANGE LAB L501.080 70-110 mg/dL High BEDSIDE GLU 130 Result Comment: MANAGEMENT OF PATIENT CARE PER NURSING PROTOCOL Performed By: #### L501.080 #### [facility] Point of Care [address] [place] [address] BEDSIDE GLUCOSE Collected: 06/13/2018 Status: F Source: [place] 11:37 AM [facility] REPOSITORY TYPE CODE TESTS RESULT OUT OF REFERENCE UNITS RANGE LAB L501.080 70-110 mg/dL High BEDSIDE GLU 166 Result Comment: MANAGEMENT OF PATIENT CARE PER NURSING PROTOCOL Performed By: #### L501.080 #### [facility] Point of Care [address] [place] [address] BEDSIDE GLUCOSE Collected: 06/13/2018 Status: F Source: [place] 6:31 AM [facility] REPOSITORY TYPE CODE TESTS RESULT OUT OF REFERENCE UNITS RANGE LAB L501.080 70-110 mg/dL High BEDSIDE GLU 169 Result Comment: MANAGEMENT OF PATIENT CARE PER NURSING PROTOCOL Performed By: #### L501.080 #### [facility] Point of Care [address] [place] [address] BEDSIDE GLUCOSE Collected: 06/12/2018 Status: F Source: [place] 8:16 PM [facility] REPOSITORY TYPE CODE TESTS RESULT OUT OF REFERENCE UNITS RANGE LAB L501.080 70-110 mg/dL High BEDSIDE GLU 201 Result Comment: MANAGEMENT OF PATIENT CARE PER NURSING PROTOCOL Performed By: #### L501.080 #### [facility] Point of Care [address] [place] [address] BEDSIDE GLUCOSE Collected: 06/12/2018 Status: F Source: [place] 4:31 PM [facility] REPOSITORY TYPE CODE TESTS RESULT OUT OF REFERENCE UNITS RANGE LAB L501.080 70-110 mg/dL High BEDSIDE GLU 187 Result Comment: MANAGEMENT OF PATIENT CARE PER NURSING PROTOCOL Performed By: #### L501.080 #### [facility] Point of Care [address] [place] [address] BEDSIDE GLUCOSE Collected: 06/12/2018 Status: F Source: [place] 12:06 PM [facility] REPOSITORY TYPE CODE TESTS RESULT OUT OF REFERENCE UNITS RANGE LAB L501.080 70-110 mg/dL High BEDSIDE GLU 194 Result Comment: MANAGEMENT OF PATIENT CARE PER NURSING PROTOCOL Performed By: #### L501.080 #### [facility] Point of Care [address] [place] [address] BEDSIDE GLUCOSE Collected: 06/12/2018 Status: F Source: [place] 6:38 AM [facility] REPOSITORY TYPE CODE TESTS RESULT OUT OF REFERENCE UNITS RANGE LAB L501.080 70-110 mg/dL High BEDSIDE GLU 156 Result Comment: MANAGEMENT OF PATIENT CARE PER NURSING PROTOCOL Performed By: #### L501.080 #### [facility] Point of Care [address] [place] [address] BEDSIDE GLUCOSE Collected: 06/11/2018 Status: F Source: [place] 11:02 PM [facility] REPOSITORY TYPE CODE TESTS RESULT OUT OF REFERENCE UNITS RANGE LAB L501.080 70-110 mg/dL High BEDSIDE GLU 212 Result Comment: MANAGEMENT OF PATIENT CARE PER NURSING PROTOCOL Performed By: #### L501.080 #### [facility] Point of Care [address] [place] [address] BEDSIDE GLUCOSE Collected: 06/11/2018 Status: F Source: [place] 8:18 PM [facility] REPOSITORY TYPE CODE TESTS RESULT OUT OF REFERENCE UNITS RANGE LAB L501.080 70-110 mg/dL High BEDSIDE GLU 228 Result Comment: MANAGEMENT OF PATIENT CARE PER NURSING PROTOCOL Performed By: #### L501.080 #### [facility] Point of Care [address] [place] [address] BEDSIDE GLUCOSE Collected: 06/11/2018 Status: F Source: [place] 4:59 PM [facility] REPOSITORY TYPE CODE TESTS RESULT OUT OF REFERENCE UNITS RANGE LAB L501.080 70-110 mg/dL High BEDSIDE GLU 220 Result Comment: MANAGEMENT OF PATIENT CARE PER NURSING PROTOCOL Performed By: #### L501.080 #### [facility] Point of Care [address] [place] [address] BEDSIDE GLUCOSE Collected: 06/11/2018 Status: F Source: [place] 11:41 AM [facility] REPOSITORY TYPE CODE TESTS RESULT OUT OF REFERENCE UNITS RANGE LAB L501.080 70-110 mg/dL High BEDSIDE GLU 306 Result Comment: MANAGEMENT OF PATIENT CARE PER NURSING PROTOCOL Performed By: #### L501.080 #### [facility] Point of Care [address] [place] [address] CBC W/DIFF, AUTOMATED Collected: 06/11/2018 Status: F Source: [place] 7:40 AM [facility] REPOSITORY TYPE CODE TESTS RESULT OUT OF [...] Lymph 1.84 Performed By: #### L100.0100 #### [facility] [address] [place], [place], [address] COMPREHENSIVE METABOLIC Collected: 06/11/2018 Status: F Source: [place] HER 7:40 AM [facility] REPOSITORY TYPE CODE TESTS RESULT OUT OF [...] GAP 8 Performed By: #### L500.4050 #### [facility] [address] [place], [address] BEDSIDE GLUCOSE Collected: 06/11/2018 Status: F Source: [place] 7:08 AM [facility] REPOSITORY TYPE CODE TESTS RESULT OUT OF REFERENCE UNITS RANGE LAB L501.080 70-110 mg/dL High BEDSIDE GLU 206 Result Comment: MANAGEMENT OF PATIENT CARE PER NURSING PROTOCOL Performed By: #### L501.080 #### [facility] Point of Care [address] [place] [address] BEDSIDE GLUCOSE Collected: 06/10/2018 Status: F Source: [place] 8:25 PM [facility] REPOSITORY TYPE CODE TESTS RESULT OUT OF REFERENCE UNITS RANGE LAB L501.080 70-110 mg/dL High BEDSIDE GLU 306 Result Comment: MANAGEMENT OF PATIENT CARE PER NURSING PROTOCOL Performed By: #### L501.080 #### [facility] Point of Care [address] [place] [address] BEDSIDE GLUCOSE Collected: 06/10/2018 Status: F Source: [place] 4:41 PM [facility] REPOSITORY TYPE CODE TESTS RESULT OUT OF REFERENCE UNITS RANGE LAB L501.080 70-110 mg/dL High BEDSIDE GLU 284 Result Comment: MANAGEMENT OF PATIENT CARE PER NURSING PROTOCOL Performed By: #### L501.080 #### [facility] Point of Care [address] [place] [address] DISCHARGE SUMMARY Observed: 06/10/2018 Status: F Source: [place] 4:39 PM [facility] REPOSITORY [facility] Medical Records Department [address] [address] Discharge Summary 06/10/18 1233 MR#: [id number] Acct: [id number] Name: YADI WESTFALL Rep #: [id number] : 1945 72 From: Rolando Avila MD PCP: Chaz BERG,Bakari Correa Status: ADM MAGALIE Y Location: [place] [address] Discharge Date and Diagnosis Date of Admission: [...] 70% luminal narrowing. CTA Brain: IMPRESSION: Normal [place] without a demonstrated aneurysm or [...] Indicated Code Visit OBSV E AND M: 74356 Observation care discharge 06/10/18 0169 <Electronically signed by Rolando Avila MD> Date Rolando Avila MD Cosigner Signature (if applicable): Date CC: Rolando Avila MD; Bakari Ware MD Signed 12 LEAD ELECTROCARDIOGRAM Observed: 06/10/2018 Status: F Source: [place] 2:26 PM [facility] REPOSITORY [facility] Cardiovascular Services [address] [place] [address] 12 Lead EKG 06/08/18 1030 MR#: [id number] Acct: [id number] Name: YADI WESTFALL Rep #: [id number] : 1945 72 From: George Bourne MD Attending Dr: Rolando Avila MD Status: ADM MAGALIE Ordering Dr: Michael Ocampo MD Date: 06/08/18 Location: [facility] Sex: F C Admitted: 06/08/18 Test Reason [...] ECG Confirmed by CHESTER BERG, GEORGE ([id number]), communications editor ABBE ELIAS ([id number]) on 06/10/2018 2:26:45 PM Referred By: ADOLFO Confirmed By:GEORGE BOURNE MD 06/10/18 1426 Date George Bourne MD CC: Michael Ocampo MD; Rolando Avila MD; Bakari Ware MD Signed DISCHARGE INSTRUCTION Observed: 06/10/2018 Status: F Source: [place] 12:33 PM [facility] REPOSITORY [facility] Medical Records Department [address] [place] [address] Instructions for Home/Discharge Instructions 06/10/18 1232 MR#: [id number] Acct: [id number] Name: YADI WESTFALL Rep #: [id number] : 1945 72 From: Rolando Avila MD [...] 06/10/2018 Status: F Source: [place] 12:02 PM [facility] REPOSITORY TYPE CODE TESTS RESULT OUT OF REFERENCE UNITS RANGE LAB L501.080 70-110 mg/dL High BEDSIDE GLU 404 Result Comment: MANAGEMENT OF PATIENT CARE PER NURSING PROTOCOL Performed By: #### L501.080 #### [facility] Point of Care [address] [place] [address] BEDSIDE GLUCOSE Collected: 06/10/2018 Status: F Source: [place] 6:59 AM [facility] REPOSITORY TYPE CODE TESTS RESULT OUT OF REFERENCE UNITS RANGE LAB L501.080 70-110 mg/dL High BEDSIDE GLU 207 Result Comment: MANAGEMENT OF PATIENT CARE PER NURSING PROTOCOL Performed By: #### L501.080 #### [facility] Point of Care [address] [place] [address] BEDSIDE GLUCOSE Collected: 06/09/2018 Status: F Source: [place] 8:50 PM [facility] REPOSITORY TYPE CODE TESTS RESULT OUT OF REFERENCE UNITS RANGE LAB L501.080 70-110 mg/dL High BEDSIDE GLU 272 Result Comment: MANAGEMENT OF PATIENT CARE PER NURSING PROTOCOL Performed By: #### L501.080 #### [facility] Point of Care [address] [place] [address] BEDSIDE GLUCOSE Collected: 06/09/2018 Status: F Source: [place] 4:15 PM [facility] REPOSITORY TYPE CODE TESTS RESULT OUT OF REFERENCE UNITS RANGE LAB L501.080 70-110 mg/dL High BEDSIDE GLU 258 Result Comment: MANAGEMENT OF PATIENT CARE PER NURSING PROTOCOL Performed By: #### L501.080 #### [facility] Point of Care [address] [place] [address] VENOUS DUPLEX LOWER Observed: 06/09/2018 Status: F Source: [place] EXTREMITY 1:09 PM [facility] REPOSITORY [facility] Cardiovascular Services [address] [place] [address] Venous Duplex US, Unilateral 06/08/18 1124 MR#: [id number] Acct: [id number] Name: YADI WESTFALL Rep #: [id number] : 1945 72 From: Luiz Simon MD Attending Dr: Rolando Avila MD Status: ADM MAGALIE Ordering Dr: Michael Ocampo MD Date: 06/08/18 Location: [facility] Sex: F C Admitted: 06/08/18 Reason For [...] Bakari Ware Chi Performed By: Esteban [facility], [place] and Student 06/09/18 1309 Date Luiz Simon MD CC: Michael Ocampo MD; Rolando Avila MD; Bakari Ware MD Date Dictated: 06/08/18 1124 Date Transcribed: 06/09/18 1309 Depalletizer Operator: Signed BEDSIDE GLUCOSE Collected: 06/09/2018 Status: F Source: [place] 11:23 AM [facility] REPOSITORY TYPE CODE TESTS RESULT OUT OF REFERENCE UNITS RANGE LAB L501.080 70-110 mg/dL High BEDSIDE GLU 274 Result Comment: MANAGEMENT OF PATIENT CARE PER NURSING PROTOCOL Performed By: #### L501.080 #### [facility] Point of Care [address] [place] [address] BEDSIDE GLUCOSE Collected: 06/09/2018 Status: F Source: [place] 6:55 AM [facility] REPOSITORY TYPE CODE TESTS RESULT OUT OF REFERENCE UNITS RANGE LAB L501.080 70-110 mg/dL High BEDSIDE GLU 166 Result Comment: MANAGEMENT OF PATIENT CARE PER NURSING PROTOCOL Performed By: #### L501.080 #### [facility] Point of Care [address] [place] [address] BASIC METABOLIC Collected: 06/09/2018 Status: F Source: [place] PROFILE (BMP) 6:15 AM [facility] REPOSITORY TYPE CODE TESTS RESULT OUT OF [...] 8 Performed By: #### L500.2500, L500.4100 #### [facility] [address] [place], [address] LIPID PROFILE Collected: 06/09/2018 Status: F Source: [place] 6:15 AM [facility] REPOSITORY TYPE CODE TESTS RESULT OUT OF [...] 9 Performed By: #### L500.2500, L500.4100 #### [facility] [address] [place], [place], [address] BRAIN/HEAD WITHOUT Observed: 06/09/2018 Status: F Source: [place] CONTRAST 12:00 AM [facility] REPOSITORY [facility] Imaging Services [address] [place] [address] Brain/Head without Contrast MR#: [id number] Acct: [id number] Name: YADI WESTFALL Rep #: [id number] : 1945 F 72 From: Leonard Gaol MD PCP: Chaz BERG,Bakari [facility] Status: ADM MAGALIE Study: Brain/Head without Contrast Date of Exam: 06/09/18 Exam# [id number] Ordering Dr: Rolando Avila MD STUDY: CT [...] CC: Rolando Avila MD; Bakari Ware MD Depalletizer Operator: Signed BEDSIDE GLUCOSE Collected: 06/08/2018 Status: F Source: [place] 10:01 PM [facility] REPOSITORY TYPE CODE TESTS RESULT OUT OF REFERENCE UNITS RANGE LAB L501.080 70-110 mg/dL High BEDSIDE GLU 220 Result Comment: MANAGEMENT OF PATIENT CARE PER NURSING PROTOCOL Performed By: #### L501.080 #### [facility] Point of Care [address] 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 Smoking Status: Former smoker Tobacco Use: [...] SCDs Code Visit OBSV E AND M: 59611 Observation care discharge 06/08/181746 <Electronically signed by Rolando Avila MD> Date Rolando Avila MD Cosigner Signature: Date (if applicable) CC: Rolando Avila MD; Bakari Ware MD Signed ECHO, COMPLETE W/ Observed: 06/08/2018 Status: F Source: [place] CONTRAST 4:39 PM [facility] REPOSITORY [facility] Cardiovascular Services [address] [place] [address] Echo Complete W/ Contrast 06/08/18 1528 MR#: [id number] Acct: [id number] Name: YADI WESTFALL Rep #: [id number] : 1945 72 From: Michael Wing MD Attending Dr: Rolando Avila MD Status: ADM MAGALIE Ordering Dr: Rolando Avila MD Date: 06/08/18 Location: [facility] Sex: F C Admitted: 06/08/18 Reason For [...] Bakari Ware Chi Performed By: Janis Garcia, ADVID, RVT 06/08/18 163 Date Michael Wing MD CC: Rolando Avila MD; Bakari Ware MD Date Dictated: 06/08/18 1528 Date Transcribed: 06/08/181638 Depalletizer Operator: Signed BEDSIDE GLUCOSE Collected: 06/08/2018 Status: F Source: [place] 4:26 PM [facility] REPOSITORY TYPE CODE TESTS RESULT OUT OF REFERENCE UNITS RANGE LAB L501.080 70-110 mg/dL High BEDSIDE GLU 182 Result Comment: MANAGEMENT OF PATIENT CARE PER NURSING PROTOCOL Performed By: #### L501.080 #### [facility] Point of Care [address] [place] [address] EMERGENCY DEPARTMENT Observed: 06/08/2018 Status: F Source: [place] SUMMARY 4:14 PM [facility] REPOSITORY [facility] Medical Records Department [address] [place] [address] Emergency Department Summary 06/08/18 1111 MR#: [id number] Acct: [id number] Name: YADI WESTFALL Rep #: [id number] : 1945 72 From: Michael Ocampo MD PCP: Bakari Ware MD, Chi Status: ADM MAGALIE - ER Visit Summary Date of Service: 06/08/18 Chief Complaint: Stroke History of Present Illness: The patient is a 72 F with stroke symptoms. Patient was last seen normal at 6:20 AM this morning. She went to adult day care worker and had a bladder stimulator placed. She [...] leg swelling This note was generated with [email or web address] software. It may contain incorrect words, spelling, [...] your Primary Care Provider. Call [facility] ([phone]) or report to the closest Emergency Room. Call 911 if necessary. 06/08/18 1614 <Electronically signed by Michael Ocampo MD> Date Michael Ocampo MD Cosigner Signature (If Indicated): Date CC: Bakari Ware MD CONSULTATION Observed: 06/08/2018 Status: F Source: [place] 2:04 PM [facility] REPOSITORY [facility] Medical Records Department [address] [place] [address] Consultation 06/08/18 1348 MR#: [id number] Acct: [id number] Name: YADI WESTFALL Rep #: [id number] : 1945 72 From: Musa Llamas MD PCP: Bakari Ware MD, Chi Status: ADM MAGALIE Y Location: [place] [address] Reason for Consult Date of Consultation: 06/08/18 [...] symptoms but does not take any medications LABORER 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 [place], [place], [address] CBC W/DIFF, AUTOMATED Collected: 06/08/2018 Status: F Source: [place] 10:29 AM [facility] REPOSITORY TYPE CODE TESTS RESULT OUT OF [...] Lymph 2.19 Performed By: #### L100.0100 #### [facility] [address] [facility] [place], [address] PROTHROMBIN TIME W/INR Collected: 06/08/2018 Status: F Source: [place] 10:29 AM [facility] REPOSITORY TYPE CODE TESTS RESULT OUT OF RANGE REFERENCE UNITS LAB L300.4150 11.7-14.9 SECONDS Normal PROTIME 14.4 LAB L300.4200 Normal INR 1.1 Performed By: #### L300.3900, L300.4310 #### [facility] [address] [place], [address] PARTIAL THROMBOPLAST Collected: 06/08/2018 Status: F Source: [place] TIME 10:29 AM [facility] REPOSITORY TYPE CODE TESTS RESULT OUT OF RANGE REFERENCE UNITS LAB L300.4310 24.1-36.2 Seconds Normal PTT 31.5 Performed By: #### L300.3900, L300.4310 #### [facility] [address] [place], [place], [address] BASIC METABOLIC Collected: 06/08/2018 Status: F Source: [place] PROFILE (BMP) 10:29 AM [facility] REPOSITORY TYPE CODE TESTS RESULT OUT OF [...] 8 Performed By: #### L500.2500, L501.4010 #### [facility] [address] [place], [address] TROPONIN-I Collected: 06/08/2018 Status: F Source: [place] 10:29 AM [facility] REPOSITORY TYPE CODE TESTS RESULT OUT OF RANGE REFERENCE UNITS LAB L501.4010 <0.045 ng/mL Normal < 0.015 TROPONIN-I Result Comment: TROPONIN-I EXPECTED VALUES <0.045 Negative 0.045 - 0.590 Consistent with Cardiac Damage > OR = 0.600 Critical Value Not every elevated troponin is indicative of NJ. These values should be used with clinical judgement in examining the patient's clinical picture for diagnosis. To establish a diagnosis of NJ versus myocardial injury, there must be a demonstrated rise and/or fall in the troponin values, in addition to ischemic symptoms, EKG changes, new regional wall motion abnormality, and/or angiographical evidence. PLEASE NOTE: REFERENCE RANGES EDITED 17 Performed By: #### L500.2500, L501.4010 #### [facility] [address] [place], [address] CTA NECK W/WO Observed: 06/08/2018 Status: F Source: [place] CONTRAST 10:20 AM [facility] REPOSITORY [facility] Imaging Services [address] [place] [address] CTA Neck W/WO Contrast MR#: [id number] Acct: [id number] Name: YADI WESTFALL Rep #: [id number] : 1945 F 72 From: Tyson Lim MD PCP: Chaz BERG,Bakari Correa Status: ADM MAGALIE Study: CTA Neck W/WO Contrast Date of Exam: 06/08/18 Exam# [id number] Ordering Dr: Michael Ocampo MD STUDY: CTA [...] Tyson Lim MD at 10:50 EST Tel [phone], Service support , STUDY: CTA OF THE [...] There is no demonstrated aneurysm of the [place]. CT/CTA Neck W/WO Contrast IMPRESSION: Normal [place] without a demonstrated aneurysm or hemodynamically significant stenosis. N.B. : The above information has been verbally conveyed by Tyson Lim MD to Michael Ocampo on 06/08/2018 10:50:29 (ET). Electronically Signed: Tyson Lim MD at 10:52 EST Tel [phone], Service support , CC: Michael Ocampo MD; Bakari Ware MD Depalletizer Operator: Signed CTA HEAD W/WO Observed: 06/08/2018 Status: F Source: [place] CONTRAST 10:20 AM [facility] Imaging Services [address] [place] [address] CTA Head W/WO Contrast MR#: [id number] Acct: [id number] Name: YADI WESTFALL Rep #: [id number] : 1945 F 72 From: Tyson Lim MD PCP: Bakari Ware MD, Chi Status: ADM MAGALIE Study: CTA Head W/WO Contrast Date of Exam: 06/08/18 Exam# [id number] Ordering Dr: Michael Ocampo MD STUDY: CTA [...] Tyson Lim MD at 10:50 EST Tel [phone], Service support , STUDY: CTA OF THE [...] There is no demonstrated aneurysm of the [place]. CT/CTA Head W/WO Contrast IMPRESSION: Normal [place] without a demonstrated aneurysm or hemodynamically significant stenosis. N.B. : The above information has been verbally conveyed by Tyson Lim MD to Michael Ocampo on 06/08/2018 10:50:29 (ET). Electronically Signed: Tyson Lim MD at 10:52 EST Tel [phone], Service support , CC: Michael Ocampo MD; Bakari Ware MD Depalletizer Operator: Signed BRAIN/HEAD WITHOUT Observed: 06/08/2018 Status: F Source: [place] CONTRAST 10:18 AM [facility] Imaging Services [address] [place] [address] Brain/Head without Contrast MR#: [id number] Acct: [id number] Name: YADI WESTFALL Rep #: [id number] : 1945 F 72 From: Tyson Lim MD PCP: Chaz BERG,Bakari Correa Status: REG ER Study: Brain/Head without Contrast Date of Exam: 06/08/18 Exam# [id number] Ordering Dr: Michael Ocampo MD STUDY: CT [...] Tyson Lim MD at 10:46 EST Tel [phone], Service support , CC: Michael Ocampo MD; Bakari Ware MD Depalletizer Operator: Signed CHEST 1 VIEW Observed: 06/08/2018 Status: F Source: [place] 10:18 AM [facility] Imaging Services [address] [place] [address] Chest 1 View MR#: [id number] Acct: [id number] Name: YADI WESTFALL Rep #: [id number] : 1945 F 72 From: Tyson Lim MD PCP: Bakari Ware MD, Chi Status: REG ER Study: Chest 1 View Date of Exam: 06/08/18 Exam# [id number] Ordering Dr: Michael Ocampo MD STUDY: X-RAY [...] is moderate cardiac enlargement. Normal mediastinum and ilinaa. Normal visualized pulmonary arteries. There is atherosclerotic [...] Tyson Lim MD at 11:16 EST Tel [phone], Service support , CC: Michael Ocampo MD; Bakari Ware MD Depalletizer Operator: Signed BEDSIDE GLUCOSE Collected: 06/08/2018 Status: F Source: [place] 10:10 AM [facility] TYPE CODE TESTS RESULT OUT OF REFERENCE UNITS RANGE LAB L501.080 70-110 mg/dL High BEDSIDE GLU 221 Result Comment: MANAGEMENT OF PATIENT CARE PER NURSING PROTOCOL Performed By: #### L501.080 #### [facility] Point of Care [address] [place] [address] BEDSIDE GLUCOSE Collected: 06/08/2018 Status: F Source: [place] 9:50 AM [facility] TYPE CODE TESTS RESULT OUT OF REFERENCE UNITS RANGE LAB L501.080 70-110 mg/dL High BEDSIDE GLU 242 Result Comment: MANAGEMENT OF PATIENT CARE PER NURSING PROTOCOL Performed By: #### L501.080 #### [facility] Point of Care [address] [place], [place] [address] PELVIS 1 OR 2 VIEWS Observed: 06/08/2018 Status: F Source: [place] 8:28 AM [facility] Imaging Services [address] [place] [address] Pelvis 1 or 2 Views MR#: [id number] Acct: [id number] Name: YADI WESTFALL Rep #: [id number] : 1945 F 72 From: Tyson Lim MD PCP: Chaz BERG,Bakari Correa Status: [facility] Study: Pelvis 1 or 2 Views Date of Exam: 06/08/18 Exam# [id number] Ordering Dr: Connor Brito MD STUDY: X-RAY [...] Tyson Lim MD at 9:29 EST Tel [phone], Service support , CC: Connor Brito MD; Bakari Ware MD Depalletizer Operator: Signed OPERATIVE REPORT Observed: 06/08/2018 Status: F Source: [place] 8:25 AM [facility] Medical Records Department [address] [place] [address] Operative Report 06/08/18 0820 MR#: [id number] Acct: [id number] Name: YADI WESTFALL Rep #: [id number] : 1945 72 From: Connor Brito MD PCP: Bakari Ware MD, Chi Status: REG SD Y Location: [place] [address] Report of Operation Date of Procedure: 06/08/18 [...] DISCHARGE INSTRUCTION Observed: 06/08/2018 Status: F Source: [place] 7:29 AM [facility] Medical Records Department [address] [place] [address] Instructions for Home/Discharge Instructions 06/08/18 0727 MR#: [id number] Acct: [id number] Name: YADI WESTFALL Rep #: [id number] : 1945 72 From: Connor Brito MD PCP: Chaz BERG,Bakari Correa Status: REG [facility] Discharge Diet: Light diet - advance as [...] MD When: next week to see if [facility] is working 06/08/18 0729 <Electronically signed by Connor Brito MD> Date Connor Brito MD CC: Bakari Ware MD BEDSIDE GLUCOSE Collected: 06/08/2018 Status: F Source: [place] 6:50 AM [facility] TYPE CODE TESTS RESULT OUT OF REFERENCE UNITS RANGE LAB L501.080 70-110 mg/dL High BEDSIDE GLU 236 Result Comment: MANAGEMENT OF PATIENT CARE PER NURSING PROTOCOL Performed By: #### L501.080 #### [facility] Point of Care [facility] [place] [place] [address] Observed: 05/27/2018 Status: F Source: [place] CULTURE, URINE 10:30 AM [facility] Urine Culture ORGANISM 1: Presumptive E. coli [place] Count >100,000 Presumptive E. coli: REACTION Amoxacillin/Clavulanic [...] <=20 S (NF) indicates non-formulary drug at [facility]. Approval by Infectious Disease Specialist required before non-formulary drugs may be ordered and/or dispensed. Performed By: #### M100.0650 #### [facility] [address] [place], [address] PROGRESS Observed: 05/17/2018 Status: COMPLETED Source: [place] 9:10 AM [facility] REPOSITORY HNO ID: [id number] Author: Etelvina Mckeon [facility] Service: (none) Author Type: (none) Type: Progress Notes Filed: 05/17/2018 9:10 AM Note Text: Patient is seeing a different physician. I removed Dr. Bradford as PCP PROGRESS Observed: 05/12/2018 Status: COMPLETED Source: [place] 9:06 AM [facility] REPOSITORY HNO ID: [id number] Author: Etelvina Mckeon [facility] Service: (none) Author Type: (none) Type: [...] (mg/dL) Date Value 08/17/2015 Test sent to [facility]. 12/05/2014 113 HDL Cholesterol (mg/dL) Date Value 08/17/2015 Test sent to [facility]. 12/05/2014 60 LDL Cholesterol (mg/dL) Date Value 08/17/2015 Test sent to [facility]. 12/05/2014 46 Triglyceride (mg/dL) Date Value 08/17/2015 Test sent to [facility]. 12/05/2014 35 HGB A1C: Lab Results Component Value Date HBA1C 6.5 05/21/2016 HBA1C Test sent to [facility]. 08/17/2015 HBA1C 6.4 12/05/2014 HBA1C 6.7 06/18/2014 [...] Cma CNPTOUTREACH Observed: 05/12/2018 Status: COMPLETED Source: [place] 12:00 AM [facility] REPOSITORY Patient Outreach (INTMWS) YADI WESTFALL ([id number]) 1945 F Date Time Provider Department 05/12/18 ETELVINA MCKEON) INTMWS During your visit today, we recorded the following information about you: Etelvina Mckeon Cma 05/17/2018 9:10 AM Signed [facility] REGISTRY DOCUMENTATION (OUTSIDE TEAMLET) Provider Action/FYI: PSR Action/FYI: *schedule physical appointment with labs prior *discuss HM Patient identified by name and date of . Last BP/Labs: Blood Pressure: Last 3 Encounter BP Readings: Date: BP: 06/09/2017 128/85 12/17/2016 118/78 10/09/2016 130/70 Lipids: Cholesterol, Total (mg/dL) Date Value 08/17/2015 Test sent to [facility]. 12/05/2014 113 HDL Cholesterol (mg/dL) Date Value 08/17/2015 Test sent to [facility]. 12/05/2014 60 LDL Cholesterol (mg/dL) Date Value 08/17/2015 Test sent to [facility]. 12/05/2014 46 Triglyceride (mg/dL) Date Value 08/17/2015 Test sent to [facility]. 12/05/2014 35 HGB A1C: Lab Results Component Value Date HBA1C 6.5 05/21/2016 HBA1C Test sent to [facility]. 08/17/2015 HBA1C 6.4 12/05/2014 HBA1C 6.7 06/18/2014 [...] office visit:Physical with labs prior Etelvina Mckeon Nursing Assistants Teacher Etelvina Mckeon Nursing Assistants Teacher 05/17/2018 9:10 AM Signed Patient is seeing [...] diabetes mellitus with diabetic neuropathy, unspecified whether retirement insulin use (HCC) [E11.40] Order(s):HGB A1C [PTXZD6X] Order #: [id number] FUTURE ALBUMIN/CREAT RATIO RND UR [SQUACR] Order #: [id number] FUTURE BASIC METABOLIC PNL [SQBMP] Order #: [id number] FUTURE LIPID PANEL BASIC [SQLIPB] Order #: [id number] FUTURE Prescriptions as of 05/12/2018 Sig: CLOPIDOGREL 75 MG TABLET Take 1 tablet by mouth once d* COMPOUNDED PRESCRIPTION [facility] BED WI* COMPOUNDED PRESCRIPTION WHEEL [...] More... PAD (peripheral artery disease) ([facility]) [I73.9] INVALID FOR* Left foot drop [M21.372] INVALID FOR* Closed traumatic displaced fracture of base of *INVALID FOR* Left hemiparesis ([facility]) [G81.94] INVALID FOR* Abnormality of gait [R26.9] INVALID FOR* CVA, old, hemiparesis ([facility]) [I69.359] INVALID FOR* Encounter Status:Closed by ETELVINA MCKEON CMA on 05/17/18 URINALYSIS, COMPLETE Collected: 04/19/2018 Status: F Source: [place] 1:33 PM [facility] Order Comment: How was Urine Obtained? [...] MUCUS, URINE Performed By: #### L400.0001 #### [facility] [address] [place], [address] Observed: 04/19/2018 Status: F Source: [place] CULTURE, URINE 1:33 PM [facility] Urine Culture ORGANISM 1: Presumptive E. coli [place] Count >100,000 Presumptive E. coli: REACTION Amoxacillin/Clavulanic [...] <=20 S (NF) indicates non-formulary drug at [facility]. Approval by Infectious Disease Specialist required before non-formulary drugs may be ordered and/or dispensed. Performed By: #### M100.0650 #### [facility] [address] [place], [address] ANKLE MIN 3 VIEWS Observed: 04/14/2018 Status: F Source: [place] 2:42 PM [facility] Imaging Services [address] [place] [address] Ankle min 3 Views MR#: [id number] Acct: [id number] Name: YADI WESTFALL Rep #: [id number] : 1945 F 72 From: Alejandrina Mota MD PCP: Bakari Ware MD, Chi Status: REG CLI Study: Ankle min 3 Views Date of Exam: 04/14/18 Exam# [id number] Ordering Dr: Bakari Ware MD STUDY: X-RAY [...] Service support , CC: Bakari Ware MD Depalletizer Operator: Signed FOOT MIN 3 VIEWS Observed: 04/14/2018 Status: F Source: [place] 2:42 PM [facility] Imaging Services [address] [place] [address] Foot min 3 Views MR#: [id number] Acct: [id number] Name: YADI WESTFALL Rep #: [id number] : 1945 F 72 From: Rolan Rascon MD PCP: Bakari Ware MD, Chi Status: REG CLI Study: Foot min 3 Views Date of Exam: 04/14/18 Exam# [id number] Ordering Dr: Bakari Ware MD STUDY: X-RAY [...] Service support , CC: Bakari Ware MD Depalletizer Operator: Signed CBC W/DIFF, AUTOMATED Collected: 04/14/2018 Status: F Source: [place] 1:05 PM [facility] TYPE CODE TESTS RESULT OUT OF [...] 1.71 Performed By: #### L100.0100 #### [place] [facility] [address] [place], [place], [address] VITAMIN D,25 HYDROXY Collected: 04/14/2018 Status: F Source: [place] 1:05 PM [facility] TYPE CODE TESTS RESULT OUT OF REFERENCE UNITS RANGE LAB L506.1000 29.95-100.01 ng/mL Low Vitamin D 22.6 25-OH Result Comment: Vitamin D 25(OH) Status Range Deficiency <20 ng/mL (50nmol/L) Insuffciency 20 - 30 ng/mL (50 - 75 nmol/L) Sufficiency 30 - 100 ng/mL (75 - 250 nmol/L) Toxicity >100 ng/mL (>250 nmol/L) Performed By: #### L506.1000 #### [facility] [place], [address] COMPREHENSIVE METABOLIC Collected: 04/14/2018 Status: F [facility] TYPE CODE TESTS RESULT OUT OF [...] 5 Performed By: #### L500.4050, L501.9520 #### [facility] [address] [facility] [place], [address] THYROID STIM HORMONE Collected: 04/14/2018 Status: F Source: [place] (TSH) 1:05 PM [facility] TYPE CODE TESTS RESULT OUT OF RANGE REFERENCE UNITS LAB L501.9520 0.358-3.74 uIU/mL Normal TSH 0.66 Performed By: #### L500.4050, L501.9520 #### [facility] [address] [place], [address] LUNG Observed: 04/08/2018 Status: F Source: [place] SCREENING 3:52 PM [facility] Imaging Services [address] [place] [address] Lung Screening MR#: [id number] Acct: [id number] Name: YADI WESTFALL Rep #: [id number] : 1945 F 72 From: Ab Hylton DO PCP: Bakari Ware MD, Chi Status: [facility] Study: Low Dose CT Lung Screening Date of Exam: 04/08/18 Exam# [id number] Ordering Dr: Bakari Ware MD STUDY: LOW [...] Ab Hylton DO at 21:43 EDT Tel [phone], Service support , CC: Bakari Ware MD Depalletizer Operator: Signed CBC W/DIFF, AUTOMATED Collected: 12/22/2017 Status: F Source: [place] 4:24 PM [facility] TYPE CODE TESTS RESULT OUT OF [...] Lymph 1.91 Performed By: #### L100.0100 #### [facility] [address] [place], [place], [address] VITAMIN D,25 HYDROXY Collected: 12/22/2017 Status: F Source: [place] 4:24 PM [facility] TYPE CODE TESTS RESULT OUT OF REFERENCE UNITS RANGE LAB L506.1000 29.95-100.01 ng/mL Low Vitamin D 21.1 25-OH Result Comment: Vitamin D 25(OH) Status Range Deficiency <20 ng/mL (50nmol/L) Insuffciency 20 - 30 ng/mL (50 - 75 nmol/L) Sufficiency 30 - 100 ng/mL (75 - 250 nmol/L) Toxicity >100 ng/mL (>250 nmol/L) Performed By: #### L506.1000 #### [facility] [address] [place], [place], [address] COMPREHENSIVE METABOLIC Collected: 12/22/2017 Status: F Source: [facility] 4:24 PM [facility] TYPE CODE TESTS RESULT OUT OF [...] 6 Performed By: #### L500.4050, L501.9520 #### [facility] [address] [place], [place], [address] THYROID STIM HORMONE Collected: 12/22/2017 Status: F Source: [place] (TSH) 4:24 PM [facility] TYPE CODE TESTS RESULT OUT OF RANGE REFERENCE UNITS LAB L501.9520 0.358-3.74 uIU/mL Normal TSH 0.59 Performed By: #### L500.4050, L501.9520 #### [facility] [address] [place], [place], [address] CBC W/DIFF, AUTOMATED Collected: 09/23/2017 Status: F Source: [place] 2:43 PM [facility] TYPE CODE TESTS RESULT OUT OF [...] Lymph 2.11 Performed By: #### L100.0100 #### [facility] [address] [place], [place], [address] COMPREHENSIVE METABOLIC Collected: 09/23/2017 Status: F Source: [facility] 2:43 PM [facility] TYPE CODE TESTS RESULT OUT OF [...] 7 Performed By: #### L500.4050, L501.9520 #### [facility] [address] [facility] [address] [place], [place], [address] THYROID STIM HORMONE Collected: 09/23/2017 Status: F Source: [place] (TSH) 2:43 PM [facility] TYPE CODE TESTS RESULT OUT OF RANGE REFERENCE UNITS LAB L501.9520 0.358-3.74 uIU/mL Normal TSH 1.20 Performed By: #### L500.4050, L501.9520 #### [facility] [address] [place], [place], [address] VITAMIN D,25 HYDROXY Collected: 09/23/2017 Status: F Source: [place] 2:43 PM [facility] TYPE CODE TESTS RESULT OUT OF REFERENCE UNITS RANGE LAB L506.1000 29.95-100.01 ng/mL Low Vitamin D 25.7 25-OH Result Comment: Vitamin D 25(OH) Status Range Deficiency <20 ng/mL (50nmol/L) Insuffciency 20 - 30 ng/mL (50 - 75 nmol/L) Sufficiency 30 - 100 ng/mL (75 - 250 nmol/L) Toxicity >100 ng/mL (>250 nmol/L) Performed By: #### L506.1000 #### [facility] [address] [place], [place], [address] BASIC METABOLIC Collected: 09/16/2017 Status: F Source: [place] PROFILE (BMP) 3:16 PM [facility] TYPE CODE TESTS RESULT OUT OF [...] GAP 7 Performed By: #### L500.2500 #### [facility] [address] [place], [address] Observed: 09/08/2017 Status: F Source: [place] CULTURE, URINE 11:55 AM [facility] RE[facility] Urine Culture ORGANISM 1: Presumptive E. coli [place] Count >100,000 Presumptive E. coli: REACTION Amoxacillin/Clavulanic [...] <=20 S (NF) indicates non-formulary drug at [facility]. Approval by Infectious Disease Specialist required before non-formulary drugs may be ordered and/or dispensed. Performed By: #### M100.0650 #### [facility] [address] [place] [address]. [place], [place], [address] MODIFIED BARIUM Observed: 09/03/2017 Status: F Source: [place] SWALLOW STUDY 2:47 PM [facility] RE[facility] Speech Pathology [address] [place] [address] Modified Barium Swallow Study MR#: [id number] Acct: [id number] Name: YADI WESTFALL Rep #: [id number] : 1945 71 From: Rashi Brasher M.A. CFY-AUXILIARY ENGINEER PRIMARY / SECONDARY DIAGNOSIS: dysphagia (R13.10) REFERRING [...] 1447 <Electronically signed by Rashi Brasher M.A., CFY-AUXILIARY ENGINEER> Date Rashi Brasher M.A., CFY-AUXILIARY ENGINEER Co-Signature Required for all Medicare patients Date/Time Co-Signature CC: SWALLOWING FUNCTION Observed: 09/03/2017 Status: F Source: [place] W/VIDEO 1:18 PM [facility] Imaging Services [address] [place] [address] Swallowing Function w/Video MR#: [id number] Acct: [id number] Name: YADI WESTFALL Rep #: [id number] : 1945 F 71 From: Tyson Lim MD PCP: Bakari Ware MD, Chi Status: REG CLI Study: Swallowing Function w/Video Date of Exam: 09/03/17 Exam# [id number] Ordering Dr: Bakari Ware MD STUDY: SWALLOWING [...] Tyson Lim MD at 15:46 EST Tel [phone], Service support , CC: Bakari Ware MD Depalletizer Operator: Signed BASIC METABOLIC Collected: 09/01/2017 Status: F Source: [place] PROFILE (BMP) 2:02 PM [facility] TYPE CODE TESTS RESULT OUT OF [...] GAP 10 Performed By: #### L500.2500 #### [facility] [address] [facility] [place], [address] VENOUS DUPLEX LOWER Observed: 08/25/2017 Status: F Source: [place] EXTREMITY 6:55 PM [facility] RE[facility] Cardiovascular Services [address] [place] [address] Venous Duplex US - Dean Extrem 08/25/17 1454 MR#: [id number] Acct: [id number] Name: YADI WESTFALL Rep #: [id number] : 1945 71 From: Luiz Simon MD [...] Date Dictated: 08/25/17 1454 Date Transcribed: 08/25/171853 Depalletizer Operator: Signed NCS AND/OR EMG Observed: 08/18/2017 Status: F Source: [place] PATIENT 11:23 AM [facility] REPOSITORY [facility] Pulmonary Services/Neurology [address] [place] [address] MR#: [id number] Acct: [id number] Name: MARIJASHAMIKAYADI Rep #: [id number] : 1945 71 From: Musa Llamas MD Referring Dr: Becky Burrows NP Status: REG CLI Ordering Dr: Date: Location: [facility] Sex: F C NCS and/or EMG [...] Date Dictated: 08/18/17 1119 Date Transcribed: 08/18/171118 Depalletizer Operator: NF Signed URINE DRUG SCREEN Collected: 07/28/2017 Status: F Source: [place] ([place]) 2:50 PM [facility] RE[facility] Order Comment: List of Drugs Taken [...] Normal NEGATIVE Performed By: #### L505.5000 #### [facility] [address] [place], [address] MISCELLANEOUS LAB Collected: 07/28/2017 Status: F Source: [place] PROCEDURE 2:50 PM [facility] Order Comment: Test(s) Ordered: [id number] RUN LOWEST TEST TYPE CODE TESTS RESULT OUT OF RANGE REFERENCE UNITS LAB L801.1541 Normal [facility] TEST Result Comment: [id number] 6+OXYCODONE-BUND (ng/mL) DRUG RESULT SCREEN CUTOFF ____ Amphetamines,Urine Negative ng/mL 1000 Amphetamine test includes Amphetamine and Methamphetamine. Barbiturates Negative ng/mL 200 Benzodiazepines Negative ng/mL 200 Cannabinoid Negative ng/mL 20 Cocaine (Metab) Negative ng/mL 300 Opiates Negative ng/mL 300 Opiates test includes Codeine, Morphine, Hydromorphone, Hydrocodone. Oxycodone/Oxymorphone,Urine Negative ng/mL 300 Test includes Oxydodone and Oxymorphone. TESTING PERFORMED AT [facility]. ORIGINAL REPORT ON FILE IN LAB CONTAINS ADDITIONAL TEST SITE INFORMATION. Performed By: #### L801.1541 #### [facility] [address] [place], [address] LUMBAR SPINE 2 OR 3 Observed: 07/28/2017 Status: F Source: [place] VIEWS 2:14 PM [facility] Imaging Services [address] [place] [address] Lumbar Spine 2 or 3 Views MR#: [id number] Acct: [id number] Name: YADI WESTFALL Rep #: [id number] : 1945 F 71 From: Yovana Healy MD PCP: Sophie Bradford MD Status: REG CLI Study: Lumbar Spine 2 or 3 Views Date of Exam: 07/28/17 Exam# [id number] Ordering Dr: Sarah Ladd MD STUDY: X-RAY [...] CC: Sarah Ladd MD; Sophie Bradford MD Depalletizer Operator: Signed URINALYSIS, COMPLETE Collected: 07/23/2017 Status: F Source: [place] 11:00 AM [facility] Order Comment: How was Urine Obtained? [...] URINE SEEN Performed By: #### L400.0001 #### [facility] [place], [address] Observed: 07/23/2017 Status: F Source: [place] CULTURE, URINE 11:00 AM [facility] Urine Culture ORGANISM 1: Presumptive E. coli [place] Count >100,000 Presumptive E. coli: REACTION Amoxacillin/Clavulanic [...] <=20 S (NF) indicates non-formulary drug at [facility]. Approval by Infectious Disease Specialist required before non-formulary drugs may be ordered and/or dispensed. Performed By: #### M100.0650 #### [facility] [address] [place], [address] OBSOLETE Observed: 07/21/2017 Status: COMPLETED Source: [place] 12:00 AM [facility] REPOSITORY Refill (INTMWS) YADI WESTFALL ([id number]) 1945 F Date Time Provider Department 07/21/17 [...] More... PAD (peripheral artery disease) ([facility]) [I73.9] INVALID FOR* Left foot drop [M21.372] INVALID FOR* Closed traumatic displaced fracture of base of *INVALID FOR* Left hemiparesis ([facility]) [G81.94] INVALID FOR* Abnormality of gait [R26.9] INVALID FOR* CVA, old, hemiparesis ([facility]) [I69.359] INVALID FOR* Encounter Status:Closed by NELL TURNER LPN on 07/21/17 ALLERGIES ALLERGIES DATE TYPE / CODE NAME / CODE REACTION SEVERITY SOURCE 06/08/2018 Drug promethazine Nausea Unknown [place] Allergy/416 HCl/[id number](NO [facility] 848480[facility] ED CT) Repository ENCOUNTERS ENCOUNTERS ADMIT/DISCHARGE ACCOUNT ADMITTING ENCOUNTER LOCATION SOURCE NUMBER CLASS 06/22/2018/ [id number] Ambulatory [place] 8 5 [facility] ing:SDCRoom: Repository AC09 06/10/2018/ [id number] Muriel, Inpatient [place] 8 7 [place] Encounter [facility] ing:RURoom: Repository [id number]: 1 06/10/2018 [id number] Muriel Ambulatory BMSBuilding:B [place] 8 [place] MS.[facility] Repository 06/08/2018/ [id number] [place], Ambulatory [place] 8 6 Rolando F [facility] ing:PCURoom: Repository [id number]: 1 06/08/2018 [id number] [place], Ambulatory BMSBuilding:B [place] 2 Rolando Christina MS.[facility] Repository 06/08/2018 [id number] [place], Ambulatory BMSBuilding:B [place] 5 Rolando Christina MS.[facility] Repository 06/08/2018 [id number] [place], Ambulatory BMSBuilding:B [place] 7 Rolando Christina MS.[facility] Repository 06/08/2018/ [id number] Ambulatory BMSBuilding:W [place] 8 2 [facility] Repository 06/08/2018/ [id number] Ambulatory [place] 8 0 [facility] ing:SDCRoom: Repository AC09 05/27/2018 [id number] Ambulatory [place] 7 [facility] ing:LABSPEC Repository 04/19/2018 [id number] Ambulatory [place] 6 [facility] ing:LABSPEC Repository 04/14/2018 [id number] Ambulatory [place] 3 [facility] ing:RAD Repository 04/08/2018 [id number] Ambulatory [place] 8 [facility] ing:CT Repository 12/22/2017 [id number] Ambulatory [place] 8 [facility] ing:POLAB3 Repository 09/23/2017 [id number] Ambulatory [place] 3 [facility] ing:POLAB3 Repository 09/16/2017 [id number] Ambulatory [place] 0 [facility] ing:POLAB3 Repository 09/08/2017 [id number] Ambulatory [place] 9 [facility] ing:LAB.FUTUR Repository E 09/03/2017 [id number] Ambulatory [place] 6 [facility] ing:RAD Repository 09/01/2017 [id number] Ambulatory [place] 7 [facility] ing:POLAB3 Repository 08/25/2017 [id number] Ambulatory [place] 0 [facility] ing:[facility]S Repository 08/18/2017 [id number] Ambulatory [place] 9 [facility] ing:PSN Repository 07/28/2017 [id number] Ambulatory [place] 1 [facility] ing:RAD Repository 07/23/2017 [id number] Ambulatory [place] 1 [facility] ing:LABSPEC Repository 07/21/2017 [id number] Ambulatory [place] 6 [facility] ing:LAB.FUTUR Repository E PAYERS PAYERS ENCOUNTER GUARANTOR PAYER SUBSCRIBER SOURCE 06/22/2018 YADI S Primary YADI S [place] [id number] Insurance:[facility] DEVINOB: [id number] Number: Repository [address]Hws: (330) [id number] [phone] (HP) Date:2013-93-81IC [address] [place] [address] 30119BT: 06/22/2018 Secondary NOT GIVENUNK [place] Insurance:SELF PAY [facility] Number: Effective Repository Date:2018-04-15 06/10/2018 YADI S Primary YADI S [place] [id number] Insurance:[employer] CARE KARVONENDOB: Community [place] [id number] Number: Repository [address]For: (330) [id number] [phone] (HP) Date:7000-47-33XN [address] [place] [address] 17614UO: 06/10/2018 Secondary NOT GIVENUNK [place] Insurance:SELF PAY [facility] Number: Effective Repository Date:2018-06-10 06/10/2018 YADI S Primary YADI S [place] [id number] Insurance:[employer]MA CARE KARVONENDOB: Community [place] [id number] Number: Repository [address]Inh: (330) [id number] [phone] (HP) Date:6329-40-49EI [address] [place] [address] 04218KK: 06/10/2018 Secondary NOT GIVENUNK [place] Insurance:SELF PAY [facility] Number: Effective Repository Date:2018-06-10 06/08/2018 YADI S Primary YADI S [place] [id number] Insurance:SUMMA CARE KARVONENDOB: Community [place] [id number] Number: Repository [phone]: (330) [id number] [phone] (HP) Date:1535-12-60HE [address] [place] [address] 08201AD: 06/08/2018 Secondary NOT GIVENUNK [place] Insurance:SELF PAY [facility] Number: Effective Repository Date:2018-06-08 06/08/2018 YADI S Primary YADI S [place] [id number] Insurance:SUMMA CARE KARVONENDOB: Community [place] [id number] Number: Repository 313[address]Nxg: 330 [id number] [phone] (HP) Date:1113-78-19UE [address] [place] [address] 74002SF: 06/08/2018 Secondary NOT GIVENUNK [place] Insurance:SELF PAY [facility] Number: Effective Repository Date:2018-06-08 06/08/2018 YADI S Primary YADI S [place] [id number] Insurance:SUMMA CARE KARVONENDOB: Community [place] [id number] Number: Repository [address]47[address]Vsq: 330 [id number] [phone] (HP) Date:8166-00-71GH [address] [place] [address] 31287FV: 06/08/2018 Secondary NOT GIVENUNK [place] Insurance:SELF PAY [facility] Number: Effective Repository Date:2018-06-08 06/08/2018 YADI S Primary YADI S [place] [id number] Insurance:SUMMA CARE KARVONENDOB: Community [place] [id number], [place] Number: Repository 03187Zbr: (330 [id number] [phone] (HP) Date:3919-69-74FX [address] [place] [address] 01365SL: 06/08/2018 Secondary NOT GIVENUNK [place] Insurance:SELF PAY [facility] Number: Effective Repository Date:2018-06-08 06/08/2018 YADI S Primary YADI S [place] [id number] Insurance:SUMMA CARE KARVONENDOB: Community [place] [id number], [place] Number: Repository 74[address]Osf: 330 [id number] [phone] (HP) Date:0745-08-59NV [address] [facility] [place] [address]AM: 06/08/2018 Secondary NOT GIVENUNK [place] Insurance:SELF PAY [facility] Number: Effective Repository Date:2018-06-08 06/08/2018 YADI S Primary YADI S [place] [id number] Insurance:[employer] CARE KARVONENDOB: Community [place] [id number] Number: Repository 60[address]Zyn: (330 [id number] [phone] () Date:7539-06-88LH [address] [facility] [place] [address]YC: 06/08/2018 Secondary NOT GIVENUNK [place] Insurance:SELF PAY [facility] Number: Effective Repository Date:2018-04-15 05/27/2018 YADI S Primary YADI S [place] [id number] Insurance:SUMMA CARE KARVONENDOB: Community [place] [id number], [place] Number: Repository [address]Swf: (330 [id number] [phone] () Date:0784-40-57AU [address] [facility] [place] [address]NH: 05/27/2018 Secondary NOT GIVENUNK [place] Insurance:SELF PAY [facility] Number: Effective Repository Date:2018-05-27 04/19/2018 YADI S Primary YADI S [place] [id number] Insurance:SUMMA CARE KARVONENDOB: Community [place] [id number] Number: Repository [address]Snl: 330 [id number] [phone] () Date:1832-23-03YY [address] [facility] [place] [address]HX: 04/19/2018 Secondary NOT GIVENUNK [place] Insurance:SELF PAY [facility] Number: Effective Repository Date:2018-04-19 04/14/2018 YADI S Primary YADI S [place] [id number] Insurance:SUMMA CARE KARVONENDOB: Community [place] [id number] Number: Repository [address]Bja: (330) [id number] [phone] (HP) Date:7235-28-71TS [address] [address]VA: 04/14/2018 Secondary NOT GIVENUNK [place] Insurance:SELF PAY [facility] Number: Effective Repository Date:2018-04-14 04/08/2018 YADI S Primary YADI S [place] [id number] Insurance:SUMMA CARE KARVONENDOB: Community [place] [id number], [place] Number: Repository [address]Iox: (330) [id number] [phone] (HP) Date:9167-59-54IK [address]MARICRUZholl[place], [place] [address]OD: 04/08/2018 Secondary NOT GIVENUNK [place] Insurance:SELF PAY [facility] Number: Effective Repository Date:2018-04-05 12/22/2017 Yadi S Primary Yadi S [place] [id number] Insurance:SUMMA CARE KarvonenDOB: Community [place] [id number], [place] Number: Repository [address]Rkf: (330) [id number] [phone] (HP) Date:0481-81-23NM [address], [place] [address]KM: 12/22/2017 Secondary NOT GIVENUNK [place] Insurance:SELF PAY [facility] Number: Effective Repository Date:2017-12-22 09/23/2017 Yadi S Primary Yadi S [place] [id number] Insurance:SUM[employer] CARE KarvonenDOB: Community [place] [id number], [place] Number: Repository [address]Pnd: (330 [id number] [phone] (HP) Date:3505-51-63[address], [place] [address]VS: 09/23/2017 Secondary NOT GIVENUNK [place] Insurance:SELF PAY [facility] Number: Effective Repository Date:2017-09-23 09/16/2017 Yadi S Primary Yadi S [place] [id number] Insurance:SUM[employer] CARE KarvonenDOB: Community [place] [id number], [place] Number: Repository [address]Gxt: 330 [id number] [phone] () Date:0068-86-11HE [address]oll[place], [place] [address]EA: 09/16/2017 Secondary NOT GIVENUNK [place] Insurance:SELF PAY [facility] Number: Effective Repository Date:2017-09-16 09/08/2017 Yadi S Primary Yadi S [place] [id number] Insurance:SUM[employer] CARE KarvonenDOB: Community [place] [id number], [place] Number: Repository [address]Wyb: 330 [id number] [phone] () Date:8977-60-95CA [address] [facility] [place] [address]MX: 09/08/2017 Secondary NOT GIVENUNK [place] Insurance:SELF PAY [facility] Number: Effective Repository Date:2017-08-16 09/03/2017 Yadi S Primary Yadi S [place] [id number] Insurance:SUM[employer] CARE KarvonenDOB: Community [place] MED[place] [id number] Number: Repository [address]Ibr: 330 [id number] [phone] () Date:2678-56-76JI [address] [place] [address]XO: 09/03/2017 Secondary NOT GIVENUNK [place] Insurance:SELF PAY [facility] Number: Effective Repository Date:2017-08-25 09/01/2017 Yadi S Primary Yadi S [place] [id number] Insurance:SUM[employer] CARE KarvonenDOB: Community [place] MED[place] [id number], [place] Number: Repository [id number]: (330 [id number] [phone] (HP) Date:3726-07-56ZI [address] [address]IC: 09/01/2017 Secondary NOT GIVENUNK [place] Insurance:SELF PAY [facility] Number: Effective Repository Date:2017-09-01 08/25/2017 Yadi S Primary Yadi S [place] [id number] Insurance:SUM[employer] CARE KarvonenDOB: Community [place] MED[place] [id number], [place] Number: Repository [address]Dlh: (330) [id number] [phone] (HP) Date:8943-85-85LA [address]AUDUB[facility] [place]ICSJ[place], [place] [address]DF: 08/25/2017 Secondary NOT GIVENUNK [place] Insurance:SELF PAY [facility] Number: Effective Repository Date:2017-08-25 08/18/2017 Yadi S Primary Yadi S [place] [id number] Insurance:SUM[employer] CARE KarvonenDOB: Community [place] MED[place]ARE[place] [id number], [place] Number: Repository [address]Nii: (330 [id number] [phone] (HP) Date:2564-53-50IW [address], [place] [address]ZD: 08/18/2017 Secondary NOT GIVENUNK [place] Insurance:SELF PAY [facility] Number: Effective Repository Date:2017-06-23 07/28/2017 Yadi S Primary Yadi S [place] [id number] Insurance:[employer] CARE KarvonenDOB: Community [place] MEDICARE[place] [id number], [place] Number: Repository [address]Pck: (330 [id number] [phone] (HP) Date:3127-19-11WF [address]AUDUB[facility] [place], [place] [address]JX: 07/28/2017 Secondary NOT GIVENUNK [place] Insurance:SELF PAY [facility] Number: Effective Repository Date:2017-07-28 07/23/2017 Yadi Hogan Primary Yadi Hogan [place] [id number] [facility] KarvonenDOB: Community [place] MED[place]ARE[place] [id number], [place] Number: Repository [address]Wzt: 330 [id number] [phone] () Date:4914-79-26XM [address]AUDUB[facility] [place]ICSJOSUE[place], [place] [address]SS: 07/23/2017 Secondary NOT GIVENUNK [place] Insurance:SELF PAY [facility] Number: Effective Repository Date:2017-07-23 07/21/2017 Yadi Hogan Primary NOT GIVENUNK [place] [id number] Insurance:SUMMA CARE [place] Number: Effective Repository [address]Wai: (330) Date:1519-10-25VK [phone] () 362LiviaPRJOSUEhollis, [place] [address]ME: 07/21/2017 Secondary NOT GIVENUNK [place] Insurance:SELF PAY [facility] Number: Effective Repository Date:2017-07-21
== END 2018-06-21 14:00 | disposition home health service (06) | DRG 57 ==
PROVIDERS: Internal Medicine; Psychiatry & Neurology Neurology; Admitting Provider Psychiatry & Neurology Neurology; Family Provider Family Medicine Geriatric Medicine; PCP Family Medicine Geriatric Medicine
DX: I69.822 Dysarthria following other cerebrovascular disease (principal); I69.854 Hemiplegia and hemiparesis following other cerebrovascular disease affecting left non-dominant side; I69.892 Facial weakness following other cerebrovascular disease; I69.898 Other sequelae of other cerebrovascular disease; R20.9 Unspecified disturbances of skin sensation; Z87.891 Personal history of nicotine dependence; N32.81 Overactive bladder; I10 Essential (primary) hypertension; E11.40 Type 2 diabetes mellitus with diabetic neuropathy, unspecified; F32.9 Major depressive disorder, single episode, unspecified; F03.90 Unspecified dementia, unspecified severity, without behavioral disturbance, psychotic disturbance, mood disturbance, and anxiety; E78.5 Hyperlipidemia, unspecified; E66.9 Obesity, unspecified; Z68.36 Body mass index [BMI] 36.0-36.9, adult; Z71.3 Dietary counseling and surveillance; M79.89 Other specified soft tissue disorders; R32 Unspecified urinary incontinence
CPT/HCPCS: 80053; 82962; 85025; 92526; 93970; 93971; 97110; 97116; 97162; 97166; 97530; 97535

== ENCOUNTER 2018-06-22 05:51 | Day surgery (SDC) | payer MEDICARE, SELFPAY ==
[2018-06-10 18:17] VITALS: BMI 36.7
[2018-06-22] VITALS (8 sets, daily range): BP systolic 120–167; BP diastolic 65–94; PULSE 69–101; RESP 18–20; TEMP 36.8–37.3; O2SAT 92–96; BMI 37.0
[2018-06-22 06:56] LABS: Bedside Glucose 211 mg/dL (70-110)
[2018-06-22] MEDS: Cefazolin 2 GM in 0.9% Normal Saline 100 ML IV (07:18)
--- NOTE | 2018-06-22 07:21 | DCINST_ITS ---
Discharge Diet: Light diet - advance as tolerated Discharge Activity: Return to Normal Activity Call your doctor if your incision/area has: Sudden Increased Bleeding Call your doctor if you observe: Fever of 101 or Higher Suture Line Care: Avoid Pulling/Pushing, Avoid Pinching/Bending Allergies/Adverse Reactions: Allergies promethazine HCl [From Phenergan] Adverse Reaction (Verified 06/08/18 10:32) Nausea Medications to take at Discharge Escitalopram Oxalate [Lexapro] 20 mg PO QHS 06/14/17 Gabapentin [Neurontin] 200 mg PO TIDCM 06/14/17 Baclofen 20 mg PO TID 06/01/18 Galantamine HBr [Galantamine ER] 24 mg PO DAILY 06/01/18 Memantine HCl 10 mg PO BID 06/08/18 Acetaminophen [Tylenol] 500 mg PO PRN 06/10/18 Aspirin [Aspirin, Baby] 81 mg PO DAILY@0800 06/10/18 Atorvastatin Calcium [Lipitor] 40 mg PO QHS 06/10/18 Clopidogrel Bisulfate [Plavix] 75 mg PO DAILY 06/10/18 Lisinopril [Zestril] 20 mg PO DAILY 06/10/18 Amlodipine [Norvasc] 10 mg PO DAILY #60 tablet 06/20/18 Glimepiride [Amaryl] 2 mg PO DAILY@0800 #60 tablet 06/20/18 Melatonin 3 mg PO QHS tablet 06/20/18 Primary Care Physician: Bakari Ware Chi, MD [Primary Care Provider] - Test Results: Test results from this visit will be discussed in further detail at your follow- up appointment, if applicable. Please Follow Up With: Connor Brito MD When: in 6 weeks, please call to make an appointment.
--- NOTE | 2018-06-22 07:45 | OP.PCM_ITS ---
Report of Operation Date of Procedure: 06/22/18 Pre-Operative Diagnosis: Overactive bladder urge incontinence, failed InterStim therapy stage I Post-Operative Diagnosis: Same Surgery/Procedure Performed:: Stage I InterStim therapy removal Description of Surgical Findings:: 72-year-old female who underwent stage I InterStim therapy implant however successful implant with good response good motor and sensory response however she did not have a good control response of her bladder and she failed the staged 1 implant therefore we will plan to remove the permanent lead. 72-year-old female taken back to the operating room she was placed facedown on the table in a comfortable position hugging a pillow we then prepped and draped the lower back in sterile fashion made in an incision after infiltrating the skin and the small pocket that was created also above the midline sacral area after opening the pocket a few blood clots were removed washed out I then cut the boot off the extension of the lead lead was then pulled out from underneath the drapes we then cut the boot off the permanent lead, I then the lead back to the original insertion site pulled it out straight and then pulled it out of the 3 foramen. After removing the permanent lead and the temporary extension I then washed out the pocket copiously with sterile water making sure the clots are out there is no bleeding I then closed the midline small incision with 2 4-0 Monoc ryl stitches and then I closed the small pocket with running 3-0 Vicryl and then running 4-0 Monocryl Steri-Strips and dressings were placed on the wounds patient anesthetic was reversed taken back to PACU good condition she will follow-up in a month to 6 weeks to review options we may consider Botox injections. Type of Anesthesia:: General Drains: none - Admit VTE Documentation VTE Present on Admission: No
--- OUTSIDE RECORDS SUMMARY | 2018-08-08 01:59 | XMS RPT_ITS ---
:1945 Author Organization [place] Support Name Relationship Address Phone SAMIR DARON Unavailable [address] + [place] [address] ANGELASELVIN SIMONS Unavailable Unavailable + [place] [address] R Unavailable Unavailable Unavailable SAMIR, DARON Unavailable [address] + [place] [address] ANGELA, SELVIN Unavailable Unavailable + [place] [address] R Unavailable Unavailable Unavailable SAMIR, DARON Unavailable [address] + [place] [address] ANGELA, SELVIN Unavailable Unavailable + [place] [address] R Unavailable Unavailable Unavailable SAMIR, DARON Unavailable [address] + [place] [address] ANGELA, SELVIN Unavailable Unavailable + [place] [address] R Unavailable Unavailable Unavailable SAMIR, DARON Unavailable [address] + [place] [address] ANGELA, SELVIN Unavailable Unavailable + [place] [address] R Unavailable Unavailable Unavailable SAMIR, DARON Unavailable [address] + [place] [address] ANGELA, SELVIN Unavailable Unavailable + [place] [address] R Unavailable Unavailable Unavailable SAMIR, DARON Unavailable [address] + [place] [address] ANGELA, SELVIN Unavailable Unavailable + [place] [address] R Unavailable Unavailable Unavailable SAMIR, DARON Unavailable [address] + [place] [address] ANGELA, SELVIN Unavailable Unavailable + [place] [address] R Unavailable Unavailable Unavailable SAMIR, DARON Unavailable [address] + [place] [address] ANGELA, SELVIN Unavailable Unavailable + [place] [address] R Unavailable Unavailable Unavailable SAMIR, DARON Unavailable [address] + [place] [address] ANGELA, SELVIN Unavailable Unavailable + [place] [address] R Unavailable Unavailable Unavailable SAMIR, DARON Unavailable [address] + [place] [address] ANGELA, SELVIN Unavailable Unavailable + [place] [address] R Unavailable Unavailable Unavailable SAMIR, DARON Unavailable [address] + [place] [address] ANGELA, SELVIN Unavailable Unavailable + [place] [address] R Unavailable Unavailable Unavailable SAMIR, DARON Unavailable [address] + [place] [address] ANGELA, SELVIN Unavailable Unavailable + [place] [address] R Unavailable Unavailable Unavailable SAMIR, DARON Unavailable [address] + [place] [address] ANGELA, SELVIN Unavailable Unavailable + [place] [address] R Unavailable Unavailable Unavailable SAMIR, DARON Unavailable [address] + [place] [address] ANGELA, SELVIN Unavailable Unavailable + [place] [address] R Unavailable Unavailable Unavailable SAMIR, DARON Unavailable [address] + [place] [address] ANGELA, SELVIN Unavailable Unavailable + [place] [address] R Unavailable Unavailable Unavailable SAMIR, DARON Unavailable [address] + [place] [address] ANGELA, SELVIN Unavailable Unavailable + [place] [address] R Unavailable Unavailable Unavailable SAMIR, DARON Unavailable [address] + [place] [address] ANGELA, SELVIN Unavailable Unavailable + [place] [address] R Unavailable Unavailable Unavailable SAMIR, DRAON Unavailable [address] + [place] [address] ANGELA, SELVIN Unavailable Unavailable + [place] [address] R Unavailable Unavailable Unavailable SAMIR, DARON Unavailable [address] + [place] [address] ANGELA, SELVIN Unavailable Unavailable + [place] [address] R Unavailable Unavailable Unavailable SAMIR, DARON Unavailable [address] + [place] [address] ANGELA, SELVIN Unavailable Unavailable + [place] [address] R Unavailable Unavailable Unavailable SAMIR, DARON Unavailable [address] + [place] [address] ANGELA, SELVIN Unavailable Unavailable + [place] [address] R Unavailable Unavailable Unavailable SAMIR, DARON Unavailable [address] [phone] [place] [address] ANGELA, SELVIN Unavailable Unavailable + [place] [address] R Unavailable Unavailable Unavailable SAMIR, DARON Unavailable [address] [phone] [place] [address] ANGELA, SELVIN Unavailable Unavailable + [place] [address] R Unavailable Unavailable Unavailable SAMIR, DARON Unavailable [address] [phone] [place] [address] ANGELA, SELVIN Unavailable Unavailable + R Unavailable Unavailable Unavailable SAMIR, DARON Unavailable [address] [phone] [place] [address] ANGELA, SELVIN Unavailable Unavailable + R Unavailable Unavailable Unavailable Care Team Providers Name Role Phone Michael Wing Attending Unavailable Rolando Avila Referring Unavailable Chaz, Bakari Chi Attending Unavailable Chaz, Bakari Chi Primary Care Unavailable Chaz, Bakari Chi Attending Unavailable Chaz, Bakari Chi Referring Unavailable Chaz, Bakari Chi Primary Care Unavailable Bj Matute Attending Unavailable Kotsonis, Rolando F Referring Unavailable Chaz, Bakari Chi Attending Unavailable Chaz, Bakari Chi Primary Care Unavailable Chaz, Bakari Chi Attending Unavailable Chaz, Bakari Chi Primary Care Unavailable Becky Burrows PLAN MANAGER-C Attending Unavailable Becky Burrows PLAN MANAGER-C Referring Unavailable Chaz, Bakari Chi Primary Care Unavailable Chaz, Bakari Chi Attending Unavailable Chaz, Bakari Chi Referring Unavailable Chaz, Bakari Chi Primary Care Unavailable Chaz, Bkaari Chi Attending Unavailable Chaz, Bakari Chi Referring Unavailable Chaz, Bakari Chi Primary Care Unavailable Chaz, Bakari Chi Attending Unavailable Chaz, Bakari Chi Referring Unavailable Chaz, Bakari Chi Primary Care Unavailable Chaz, Bakari Chi Attending Unavailable Chaz, Bakari Chi Primary Care Unavailable Chaz, Bakair Chi Attending Unavailable Chaz, Bakari Chi Primary Care Unavailable Chaz, Bakari Chi Attending Unavailable Chaz, Bakari Chi Primary Care Unavailable Chaz, Bakari Chi Attending Unavailable Chaz, Bakari Chi Primary Care Unavailable Chaz, Bakari Chi Attending Unavailable Chaz, Bakari Chi Referring Unavailable Chaz, Bakari Chi Primary Care Unavailable Chaz, Bakari Chi Attending Unavailable Chaz, Bakari Chi Primary Care Unavailable Chaz, Bakari Chi Referring Unavailable DarylConnor terrell Attending Unavailable DarylConnor Referring Unavailable Chaz, Bakari Chi Primary Care Unavailable DarylConnor Attending Unavailable DarylConnorGanesh Referring Unavailable Chaz, Bakari Chi Primary Care Unavailable DarylConnor Attending Unavailable Chaz, Bakari Chi Primary Care Unavailable DarylConnor Attending Unavailable Chaz, Bakari Chi Primary Care Unavailable DarylConnorGanesh Referring Unavailable Chaz, Bakari Chi Primary Care Unavailable KotsonisRafaelRolando F Admitting Unavailable Kotsonis, Rolando F Attending Unavailable Musa Llamas Consulting Unavailable Kotsonis, Rolando F Admitting Unavailable Kotsonis, Rolando F Attending Unavailable Chaz, Bakari Chi Primary Care Unavailable Musa Llamas Consulting Unavailable Kotsonis, Rolando F Consulting Unavailable Kotsonis, Rolando F Admitting Unavailable Kotsonis, Rolando F Attending Unavailable Chaz, Bakari Chi Primary Care Unavailable Musa Llamas Consulting Unavailable Kotsonis, Rolando F Consulting Unavailable Kotsonis, Rolando F Admitting Unavailable Kotsonis, Rolanod F Attending Unavailable Chaz, Bakari Chi Primary Care Unavailable Musa Llamas Consulting Unavailable Kotsonis, Rolando F Consulting Unavailable Musa Llamas Admitting Unavailable Chaz, Bakari Chi Primary Care Unavailable Rolando Avila Consulting Unavailable Jairo Garza Attending Unavailable Musa Llamas Admitting Unavailable Rolando Avila Attending Unavailable Chaz, Bakari Chi Primary Care Unavailable Rolando Avila Consulting Unavailable Musa Llamas Consulting Unavailable PROBLEMS PROBLEMS DATE TYPE CONDITION / CODE ATTENDING STATUS SOURCE 07/01/2018 Unknown R94.31 - Abnormal [place], Active [place] electrocardiogram [facility] [ECG] [EKG] / Hospital R94.31(ICD-10) Repository 07/01/2018 Unknown I45.10 - Unspecified [place], Active [place] right bundle-branch [facility] block / I45.10(ICD-10) Hospital Repository 07/01/2018 Unknown R47.81 - Slurred [place], Active [place] speech / [facility] R47.81(ICD-10) Hospital Repository 05/27/2018 Unknown N39.0 - Urinary tract Daryl, Connor Active [place] infection, site not [facility] specified / Hospital N39.0(ICD-10) Repository 04/14/2018 Unknown E11.9 - Type 2 Chaz, Bakari Chi Active [place] diabetes mellitus Community without complications Hospital / E11.9(ICD-10) Repository 04/14/2018 Unknown E55.9 - Vitamin D Chaz, Bakari Chi Active [place] deficiency, Community unspecified / Hospital E55.9(ICD-10) Repository 04/14/2018 Unknown M25.579 - Pain in Chaz, Bakari Chi Active [place] unspecified ankle and Community joints of unspecified Hospital foot / M25.579(ICD-10) Repository 04/14/2018 Unknown M79.609 - Pain in Chaz, Bakari Chi Active [place] unspecified limb / Community M79.609(ICD-10) Hospital Repository 09/16/2017 Unknown E87.6 - Hypokalemia / Chaz, Bakari Chi Active [place] E87.6(ICD-10) [facility] Repository 08/18/2017 Unknown R20.0 - Anesthesia of Becky Burrows Active [place] skin / R20.0(ICD-10) PLAN MANAGER-C [facility] Repository 08/18/2017 Unknown R25.2 - Cramp and Becky Burrows Active [place] spasm / R25.2(ICD-10) PLAN MANAGER-C [facility] Repository 08/18/2017 Unknown Z86.73 - Personal Becky Burrows Active [place] history of transient PLAN MANAGER-C Community ischemic attack (TIA), Hospital and cerebral Repository infarction without residual deficits / Z86.73(ICD-10) PROCEDURES PROCEDURES No Procedure Records FoundRESULTS RESULTS NCS AND/OR EMG Observed: 07/13/2018 Status: F Source: [place] PATIENT 2:24 PM [facility] REPOSITORY [facility] Pulmonary Services/Neurology [address] [place] [address] MR#: [id number] Acct: [id number] Name: YADI LARSEN Rep #: [id number] : 1945 72 From: Kaitlin Alfaro MD Referring Dr: Chaz BERG,Bakari Correa Status: REG CLI Ordering Dr: Date: Location: N Sex: F C NCS and/or EMG Patient Report Ordering Doctor: Bakari Ware Chi DATE OF SERVICE: 07/13/18 Yadi Larsen is a 72-year-old female presents for electrodiagnostic testing of the lower limbs. She reports pain and numbness primarily in the left leg. Due to some excessive edema and poor tolerance for the exam, only the left lower limb was tested on today's visit. Electrodiagnostic findings: The left peroneal motor nerve demonstrates normal distal latency with reduced amplitude and borderline reduced conduction velocity. Normal left tibial motor response. Tibial and peroneal F waves within normal limits. Absent sural and superficial peroneal latency prolonged left medial plantar latency. Needle EMG testing revealed no evidence of denervation A muscles tested, including the left lumbar paraspinals. Electrodiagnostic impression: This is an abnormal, though limited study in the left lower limb 1. Due to excessive peripheral edema, sensory responses could not be properly obtained. This is likely due to the exams limitations. Needle EMG testing was conducted and no evidence of denervation was noted in any muscles tested. No electrodiagnostic evidence is noted for lumbosacral radiculopathy, specifically on the left side. A more accurate assessment regarding peripheral neuropathy can likely be done once her edema has resolved. If there are any further questions, please do not hesitate to contact me. 07/13/18 3359 <Electronically signed by Kaitlin Alfaro MD> Date Kaitlin Alfaro MD CC: Kaitlin Alfaro MD; Bakari Ware MD Date Dictated: 07/13/181404 Date Transcribed: 07/13/181404 Oil Sprayer: AA Signed VITAMIN D,25 HYDROXY Collected: 07/07/2018 Status: F Source: [place] 3:51 PM [facility] REPOSITORY TYPE CODE TESTS RESULT OUT OF REFERENCE UNITS RANGE LAB L506.1000 29.95-100.01 ng/mL Low Vitamin D 29.3 25-OH Result Comment: Vitamin D 25(OH) Status Range Deficiency <20 ng/mL (50nmol/L) Insuffciency 20 - 30 ng/mL (50 - 75 nmol/L) Sufficiency 30 - 100 ng/mL (75 - 250 nmol/L) Toxicity >100 ng/mL (>250 nmol/L) Performed By: #### L506.1000 #### [facility] [place], [address] CBC W/DIFF, AUTOMATED Collected: 07/07/2018 Status: F Source: [place] 3:51 PM [facility] REPOSITORY TYPE CODE TESTS RESULT OUT OF RANGE REFERENCE UNITS LAB L100.1000 4.4-11.0 K/mm3 Normal WBC 7.2 LAB L100.1200 4.2-5.4 M/mm3 Normal RBC 4.31 LAB L100.1300 12.0-15.0 g/dl Normal HGB 13.1 LAB L100.1400 37-47 % Normal HCT 39.8 LAB L100.1500 81-99 fL Normal MCV 92.3 LAB L100.1600 27.0-32.0 pg Normal MCH 30.4 LAB L100.1700 32-36 g/gl Normal MCHC 32.9 LAB L100.1810 11.6-14.6 % Normal RDW CV 13.4 LAB L100.1820 35.1-43.9 fl High RDW SD 44.4 LAB L100.1900 150-450 K/mm3 Normal PLT 200 LAB L100.2000 6.2-12.0 fl Normal MPV 11.5 LAB L100.2100 47-70 % Normal NEUT% 59.2 LAB L100.2200 19-41 % Normal LY% 30.9 LAB L100.2300 0-10 % Normal MONO% 5.9 LAB L100.2400 0-5 % Normal EO% 3.6 LAB L100.2500 0-1 % Normal BASO% 0.1 LAB L100.2550 0.0-0.9 % Normal IM GRAN % 0.300 Result Comment: IG% - Immature Granulocytes (promyelocytes, myelocytes and metamyelocytes) > 1% indicates that a LEFT SHIFT is Present. LAB L100.2620 2.0-7.7 X10 3/uL Normal Absolute Neut 4.2 LAB L100.2720 0.83-4.51 X10 3/ul Normal Absolute Lymph 2.21 Performed By: #### L100.0100 #### [facility] [address] [place], [address] COMPREHENSIVE METABOLIC Collected: 07/07/2018 Status: F Source: [facility] 3:51 PM [facility] REPOSITORY TYPE CODE TESTS RESULT OUT OF RANGE REFERENCE UNITS LAB L501.0100 74-106 mg/dL High GLU 204 Result Comment: Glucose result greater than or equal to 200 mg/dL suggests DIABETES MELLITUS per A.D.A. criteria. Please note revised GLUCOSE reference range effective 2017. LAB L501.1000 7-18 mg/dL High BUN 28 LAB L501.1100 0.55-1.02 mg/dL Normal CREAT,SERUM 0.75 Result Comment: The validity of the calculated GFR AND GFRAA in patients over 70 years has not been determined. Clinical correlation is essential. LAB L501.1110 >60 mL/min Normal EST GFR 81 Result Comment: Non- GFR Calc LAB L501.1115 >60 mL/min Normal EST GFR - AA 98 Result Comment: GFR Calc LAB L501.1300 10-20 RATIO High BUN/CRE 37.3 LAB L501.1500 6.4-8.2 g/dL T Normal PROT 7.1 LAB L501.1800 3.2-5.0 g/dL Normal ALB 3.2 LAB L501.1950 2.2-4.2 g/dL Normal GLOB 3.9 LAB L501.2000 0.9-2.4 RATIO Low A/G 0.8 LAB L501.2200 8.5-10.1 mg/dL CA Normal 8.6 LAB L501.4100 15-37 U/L Normal AST 19 LAB L501.4305 45-117 U/L Normal ALK P 56 LAB L501.4405 13-56 U/L Normal ALT 26 LAB L501.4600 0.20-1.00 mg/dL T Normal BILI 0.40 LAB L501.5300 136-145 mmol/L NA Normal 140 LAB L501.5600 3.5-5.1 mmol/L Low K 3.3 LAB L501.5900 98-107 mmol/L CL Normal 104 LAB L501.6100 21.0-32.0 mmol/L Normal CO2 28.0 LAB L501.6200 5-15 Normal GAP 8 Performed By: #### L500.4050, L501.9520 #### [facility] [address], [place], [address] THYROID STIM HORMONE Collected: 07/07/2018 Status: F Source: [place] (TSH) 3:51 PM [facility] REPOSITORY TYPE CODE TESTS RESULT OUT OF RANGE REFERENCE UNITS LAB 01.9520 0.358-3.74 uIU/mL Normal TSH 0.59 Performed By: #### L500.4050, L501.9520 #### [facility] [address] [place], [address] Observed: 06/29/2018 Status: F Source: [place] CULTURE, URINE 11:10 AM [facility] REPOSITORY Urine Culture ORGANISM 1: Presumptive E. coli [place] Count >100,000 Presumptive E. coli: REACTION Amoxacillin/Clavulanic [...] <=20 S (NF) indicates non-formulary drug at [facility]. Approval by Infectious Disease Specialist required before non-formulary drugs may be ordered and/or dispensed. Performed By: #### M100.0650 #### [facility] [address] [facility] [place], [address] BNP,B-TYPE NATRIURETIC Collected: 06/29/2018 Status: F Source: [place] PEPTIDE 11:06 AM [facility] REPOSITORY TYPE CODE TESTS RESULT OUT OF RANGE REFERENCE UNITS LAB L503.6620 0-100 pg/mL Normal B-TYPE 21.6 JEANNE PEP Performed By: #### L503.6620 #### [facility] [address] [facility] [place], [address] HISTORY AND PHYSICAL Observed: 06/28/2018 Status: F Source: [place] EXAM 1:04 PM [facility] REPOSITORY [facility] Medical Records Department [address] [place] [address] History and Physical 06/11/182023 MR#: [id number] Acct: [id number] Name: YADI LARSEN Rep #: [id number] : 1945 72 From: Abida Collins MD PCP: Chaz BERG,Bakari Correa Status: DIS IN Y Location: [place] [address] Problem List (1) CVA (cerebral infarction) Status: [...] left leg weakness, Dementia, depression admitted to [facility] with debility s/p TIA following bladder stimulator placement, for > 3 hrs therapy daily, with the aim of returning back home at or near her prior level of functional independence. Patient was admitted to [facility] with right facial droop and slurred [...] symptoms but does not take any medications SOCIAL SERVICES MANAGER History: No pertinent SOCIAL SERVICES MANAGER history Lives: With Family Smoking Status: Former [...] left leg weakness, Dementia, depression admitted to [facility] IP with debility s/p TIA following bladder stimulator placement, for > 3 hrs therapy daily, with the aim of returning back home at or near her prior level of functional independence. Patient was admitted to [facility] with right facial droop and slurred [...] recommendations Code Visit Inpatient E AND M: 96588 Init Hosp L3 06/28/18 1304 <Electronically signed by Abida Collins MD> Date Abida Collins MD Cosigner Signature: Date (if applicable) CC: Dexter Collins MD; Bakari Ware MD Signed OPERATIVE REPORT Observed: 06/22/2018 Status: F Source: [place] 7:45 AM [facility] REPOSITORY [facility] Medical Records Department [address] [place] [address] Operative Report 06/22/18 0742 MR#: [id number] Acct: [id number] Name: YADI LARSEN Rep #: [id number] : 1945 72 From: Connor Brito MD PCP: Chaz BERG,Bakari Correa Status: REG [facility] Y Location: [place] [address] Report of Operation Date of Procedure: 06/22/18 [...] DISCHARGE INSTRUCTION Observed: 06/22/2018 Status: F Source: [place] 7:21 AM [facility] Medical Records Department [address] [place] [address] Instructions for Home/Discharge Instructions 06/22/18 0720 MR#: [id number] Acct: [id number] Name: YADI LARSEN Rep #: [id number] : 1945 72 From: Connor Brito MD PCP: Chaz BERG,Bakari Correa Status: REG [facility] Discharge Diet: Light diet - advance as [...] weeks, please call to make an appointment. 06/22/18720 <Electronically signed by Connor Brito MD> Date Connor Brito MD CC: Bakari Ware MD BEDSIDE GLUCOSE Collected: 06/22/2018 Status: F Source: [place] 6:40 AM [facility] REPOSITORY TYPE CODE TESTS RESULT OUT OF REFERENCE UNITS RANGE LAB L501.080 70-110 mg/dL High BEDSIDE GLU 211 Result Comment: MANAGEMENT OF PATIENT CARE PER NURSING PROTOCOL Performed By: #### L501.080 #### [facility] Point of Care [address] [place], [place] [address] BEDSIDE GLUCOSE Collected: 06/21/2018 Status: F Source: [place] 11:37 AM [facility] REPOSITORY TYPE CODE TESTS RESULT OUT OF REFERENCE UNITS RANGE LAB L501.080 70-110 mg/dL High BEDSIDE GLU 233 Result Comment: MANAGEMENT OF PATIENT CARE PER NURSING PROTOCOL Performed By: #### L501.080 #### [facility] Point of Care [address] [place] [address] DISCHARGE INSTRUCTION Observed: 06/21/2018 Status: F Source: [place] 11:35 AM [facility] Medical Records Department [address] [place] [address] Instructions for Home/Discharge Instructions 06/21/18 [facility] MR#: [id number] Acct: [id number] Name: YADI LARSEN Rep #: [id number] : 1945 72 From: Becky Burrows PLAN MANAGER-C PCP: Bakari Ware MD, Chi Status: ADM IN - Discharge Diagnoses [...] @ 1:30 Proposed Discharge Date: 06/21/18 06/21/18 3905 <Electronically signed by Becky HALE> Date Becky HALE CC: Rolando Avila MD; Bakari Ware MD DISCHARGE SUMMARY Observed: 06/21/2018 Status: F Source: [place] 11:34 AM [facility] REPOSITORY [facility] Medical Records Department [address] [place] [address] Discharge Summary 06/21/18 0848 MR#: [id number] Acct: [id number] Name: YADI LARSEN Rep #: [id number] : 1945 72 From: Becky HALE PCP: Bakari Ware MD, Chi Status: ADM IN Y Location: [place] [address] Rehab Discharge Summary DATE OF ADMISSION: 06/10/18 [...] PRN PRN PRN Reason: PAIN Last Admin: 12/02/18 21:15 Dose: 500 mg Amlodipine Besylate (Norvasc) 10 mg PO DAILY [facility] Last Admin: 06/21/18 08:36 Dose: 10 mg Aspirin (Aspirin, Baby) 81 mg PO DAILY@0800 [facility] Last Admin: 06/21/18 08:36 Dose: 81 mg Atorvastatin Calcium (Lipitor) 40 mg PO QHS [facility] Last Admin: 06/20/18 20:43 Dose: 40 mg Baclofen (Lioresal) 20 mg PO TID [facility] Last Admin: 06/21/18 05:40 Dose: 20 mg Bisacodyl (Dulcolax) 10 mg RECTAL .PRN X 1 PRN PRN Reason: Constipation Clopidogrel Bisulfate (Plavix) 75 mg PO DAILY [facility] Last Admin: 06/21/18 08:36 Dose: 75 mg Enoxaparin Sodium (Lovenox) 40 mg SC DAILY@0600 [facility] Last Admin: 06/21/18 08:44 Dose: Not Given Escitalopram Oxalate (Lexapro) 20 mg PO QHS [facility] Last Admin: 06/20/18 20:42 Dose: 20 mg Gabapentin (Neurontin) 200 mg PO TIDCM [facility] Last Admin: 06/21/18 08:36 Dose: 200 mg Galantamine Hydrobromide (Razadyne) 12 mg PO BID [facility] Last Admin: 06/21/18 08:35 Dose: 12 mg Glimepiride (Amaryl) 2 mg PO DAILY@0800 [facility] Last Admin: 06/21/18 08:36 Dose: 2 mg Insulin Human Lispro (Humalog Kwikpen (Bkc)) 0 unit SC [facility]; Protocol Last Admin: 06/21/18 08:36 Dose: 1 u Lisinopril (Zestril) 20 mg PO DAILY [facility] Last Admin: 06/21/18 08:36 Dose: 20 mg Magnesium Hydroxide (Milk Of Magnesia) 30 ml PO .PRN X 1 PRN PRN Reason: Constipation Melatonin (Melatonin) 3 mg PO QHS [facility] Last Admin: 06/20/18 20:44 Dose: 3 mg Memantine (Namenda) 10 mg PO BID [facility] Last Admin: 06/21/18 08:36 Dose: 10 mg Polyethylene Glycol (Miralax) 17 gm PO BID [facility] Last Admin: 06/21/18 05:39 Dose: Not Given Senna/Docusate Sodium (Senokot-S, Courtney-Colace) 2 tablet PO BID [facility] Last Admin: 06/21/18 05:40 Dose: Not Given [...] left leg weakness, Dementia, depression admitted to [facility] IP RU with debility s/p TIA following bladder stimulator placement, for > 3 hrs therapy daily, with the aim of returning back home at or near her prior level of functional independence. Patient was admitted to [facility] with right facial droop and slurred [...] Contraindication 06/21/18 1134 <Electronically signed by Becky CHUC> Date Becky CHUC 06/21/18 1025<Electronically signed by Musa Llamas MD> Cosigner Signature (if applicable): Date Musa Llamas MD CC: NGA Burrows; Musa Llamas MD; Bakari Ware MD Signed BEDSIDE GLUCOSE Collected: 06/21/2018 Status: F Source: [place] 6:27 AM [facility] REPOSITORY TYPE CODE TESTS RESULT OUT OF REFERENCE UNITS RANGE LAB L501.080 70-110 mg/dL High BEDSIDE GLU 155 Result Comment: MANAGEMENT OF PATIENT CARE PER NURSING PROTOCOL Performed By: #### L501.080 #### [facility] Point of Care [address] [place] [address] BEDSIDE GLUCOSE Collected: 06/20/2018 Status: F Source: [place] 9:20 PM [facility] REPOSITORY TYPE CODE TESTS RESULT OUT OF REFERENCE UNITS RANGE LAB L501.080 70-110 mg/dL High BEDSIDE GLU 263 Result Comment: MANAGEMENT OF PATIENT CARE PER NURSING PROTOCOL Performed By: #### L501.080 #### [facility] Point of Care [address] [place] [address] BEDSIDE GLUCOSE Collected: 06/20/2018 Status: F Source: [place] 4:46 PM [facility] REPOSITORY TYPE CODE TESTS RESULT OUT OF REFERENCE UNITS RANGE LAB L501.080 70-110 mg/dL High BEDSIDE GLU 192 Result Comment: MANAGEMENT OF PATIENT CARE PER NURSING PROTOCOL Performed By: #### L501.080 #### [facility] Point of Care [address] [place] [address] BEDSIDE GLUCOSE Collected: 06/20/2018 Status: F Source: [place] 11:33 AM [facility] REPOSITORY TYPE CODE TESTS RESULT OUT OF REFERENCE UNITS RANGE LAB L501.080 70-110 mg/dL High BEDSIDE GLU 270 Result Comment: MANAGEMENT OF PATIENT CARE PER NURSING PROTOCOL Performed By: #### L501.080 #### [facility] Point of Care [address] [place] [address] BEDSIDE GLUCOSE Collected: 06/20/2018 Status: F Source: [place] 6:40 AM [facility] REPOSITORY TYPE CODE TESTS RESULT OUT OF REFERENCE UNITS RANGE LAB L501.080 70-110 mg/dL High BEDSIDE GLU 183 Result Comment: MANAGEMENT OF PATIENT CARE PER NURSING PROTOCOL Performed By: #### L501.080 #### [facility] Point of Care [address] [place] [address] BEDSIDE GLUCOSE Collected: 06/19/2018 Status: F Source: [place] 10:46 PM [facility] REPOSITORY TYPE CODE TESTS RESULT OUT OF REFERENCE UNITS RANGE LAB L501.080 70-110 mg/dL High BEDSIDE GLU 300 Result Comment: MANAGEMENT OF PATIENT CARE PER NURSING PROTOCOL Performed By: #### L501.080 #### [facility] Point of Care [address] [place] [address] BEDSIDE GLUCOSE Collected: 06/19/2018 Status: F Source: [place] 4:24 PM [facility] REPOSITORY TYPE CODE TESTS RESULT OUT OF REFERENCE UNITS RANGE LAB L501.080 70-110 mg/dL High BEDSIDE GLU 266 Result Comment: MANAGEMENT OF PATIENT CARE PER NURSING PROTOCOL Performed By: #### L501.080 #### [facility] Point of Care [address] [place] [address] BEDSIDE GLUCOSE Collected: 06/19/2018 Status: F Source: [place] 11:04 AM [facility] REPOSITORY TYPE CODE TESTS RESULT OUT OF REFERENCE UNITS RANGE LAB L501.080 70-110 mg/dL High BEDSIDE GLU 300 Result Comment: MANAGEMENT OF PATIENT CARE PER NURSING PROTOCOL Performed By: #### L501.080 #### [facility] Point of Care [address] [place] [address] BEDSIDE GLUCOSE Collected: 06/19/2018 Status: F Source: [place] 6:39 AM [facility] REPOSITORY TYPE CODE TESTS RESULT OUT OF REFERENCE UNITS RANGE LAB L501.080 70-110 mg/dL High BEDSIDE GLU 205 Result Comment: MANAGEMENT OF PATIENT CARE PER NURSING PROTOCOL Performed By: #### L501.080 #### [facility] Point of Care [address] [place] [address] BEDSIDE GLUCOSE Collected: 06/18/2018 Status: F Source: [place] 8:53 PM [facility] REPOSITORY TYPE CODE TESTS RESULT OUT OF REFERENCE UNITS RANGE LAB L501.080 70-110 mg/dL High BEDSIDE GLU 209 Result Comment: MANAGEMENT OF PATIENT CARE PER NURSING PROTOCOL Performed By: #### L501.080 #### [facility] Point of Care [address] [place] [address] BEDSIDE GLUCOSE Collected: 06/18/2018 Status: F Source: [place] 4:08 PM [facility] REPOSITORY TYPE CODE TESTS RESULT OUT OF REFERENCE UNITS RANGE LAB L501.080 70-110 mg/dL High BEDSIDE GLU 247 Result Comment: MANAGEMENT OF PATIENT CARE PER NURSING PROTOCOL Performed By: #### L501.080 #### [facility] Point of Care [address] [place] [address] BEDSIDE GLUCOSE Collected: 06/18/2018 Status: F Source: [place] 11:01 AM [facility] REPOSITORY TYPE CODE TESTS RESULT OUT OF REFERENCE UNITS RANGE LAB L501.080 70-110 mg/dL High BEDSIDE GLU 317 Result Comment: MANAGEMENT OF PATIENT CARE PER NURSING PROTOCOL Performed By: #### L501.080 #### [facility] Point of Care [address] [place] [address] BEDSIDE GLUCOSE Collected: 06/18/2018 Status: F Source: [place] 6:52 AM [facility] REPOSITORY TYPE CODE TESTS RESULT OUT OF REFERENCE UNITS RANGE LAB L501.080 70-110 mg/dL High BEDSIDE GLU 200 Result Comment: MANAGEMENT OF PATIENT CARE PER NURSING PROTOCOL Performed By: #### L501.080 #### [facility] Point of Care [address] [place] [address] BEDSIDE GLUCOSE Collected: 06/17/2018 Status: F Source: [place] 9:05 PM [facility] REPOSITORY TYPE CODE TESTS RESULT OUT OF REFERENCE UNITS RANGE LAB L501.080 70-110 mg/dL High BEDSIDE GLU 274 Result Comment: MANAGEMENT OF PATIENT CARE PER NURSING PROTOCOL Performed By: #### L501.080 #### [facility] Point of Care [address] [place] [address] BEDSIDE GLUCOSE Collected: 06/17/2018 Status: F Source: [place] 4:34 PM [facility] REPOSITORY TYPE CODE TESTS RESULT OUT OF REFERENCE UNITS RANGE LAB L501.080 70-110 mg/dL High BEDSIDE GLU 229 Result Comment: MANAGEMENT OF PATIENT CARE PER NURSING PROTOCOL Performed By: #### L501.080 #### [facility] Point of Care [address] [place] [address] BEDSIDE GLUCOSE Collected: 06/17/2018 Status: F Source: [place] 11:32 AM [facility] REPOSITORY TYPE CODE TESTS RESULT OUT OF REFERENCE UNITS RANGE LAB L501.080 70-110 mg/dL High BEDSIDE GLU 230 Result Comment: MANAGEMENT OF PATIENT CARE PER NURSING PROTOCOL Performed By: #### L501.080 #### [facility] Point of Care [address] [place] [address] VENOUS DUPLEX UPPER Observed: 06/17/2018 Status: F Source: [place] EXTREMITY 7:30 AM [facility] REPOSITORY [facility] Cardiovascular Services [address] [place] [address] Venous Duplex US - Dean Extrem 06/13/18 1408 MR#: [id number] Acct: [id number] Name: YADI LARSEN Rep #: [id number] : 1945 72 From: Luiz Simon MD Attending Dr: Jaydon Olivas DO Status: ADM IN Ordering Dr: Abdia Collins MD Date: 06/11/18 Location: Sex: F C Admitted: 06/10/18 Reason [...] Chi Performed By: Lorrie Orellana, DAVID, RVT ? 06/17/18728 Date Luiz Simon MD CC: Dexter Collins MD; Jaydon Olivas DO; Bakari Ware MD Date Dictated: 06/13/18 1408 Date Transcribed: 06/17/18728 Oil Sprayer: Signed VENOUS DUPLEX LOWER Observed: 06/17/2018 Status: F Source: [place] EXTREMITY 7:07 AM [facility] REPOSITORY [facility] Cardiovascular Services [address] [place] [address] Venous Duplex US, Unilateral 06/13/18 1352 MR#: [id number] Acct: [id number] Name: YADI LARSEN Rep #: [id number] : 1945 72 From: Luiz Simon MD Attending Dr: Jaydon Oliavs DO Status: ADM IN Ordering Dr: Becky Burrows PLAN MANAGER-C Date: 06/13/18 Location: [place] Sex: F C Admitted: 06/10/18 [...] Date Dictated: 06/13/18 1352 Date Transcribed: 06/17/18706 Oil Sprayer: Signed BEDSIDE GLUCOSE Collected: 06/17/2018 Status: F Source: [place] 6:59 AM [facility] REPOSITORY TYPE CODE TESTS RESULT OUT OF REFERENCE UNITS RANGE LAB L501.080 70-110 mg/dL High BEDSIDE GLU 190 Result Comment: MANAGEMENT OF PATIENT CARE PER NURSING PROTOCOL Performed By: #### L501.080 #### [facility] Point of Care [address] [place] [address] BEDSIDE GLUCOSE Collected: 06/16/2018 Status: F Source: [place] 9:21 PM [facility] REPOSITORY TYPE CODE TESTS RESULT OUT OF REFERENCE UNITS RANGE LAB L501.080 70-110 mg/dL High BEDSIDE GLU 262 Result Comment: MANAGEMENT OF PATIENT CARE PER NURSING PROTOCOL Performed By: #### L501.080 #### [facility] Point of Care [address] [place] [address] BEDSIDE GLUCOSE Collected: 06/16/2018 Status: F Source: [place] 5:04 PM [facility] REPOSITORY TYPE CODE TESTS RESULT OUT OF REFERENCE UNITS RANGE LAB L501.080 70-110 mg/dL High BEDSIDE GLU 247 Result Comment: MANAGEMENT OF PATIENT CARE PER NURSING PROTOCOL Performed By: #### L501.080 #### [facility] Point of Care [address] [place] [address] BEDSIDE GLUCOSE Collected: 06/16/2018 Status: F Source: [place] 11:37 AM [facility] REPOSITORY TYPE CODE TESTS RESULT OUT OF REFERENCE UNITS RANGE LAB L501.080 70-110 mg/dL High BEDSIDE GLU 266 Result Comment: MANAGEMENT OF PATIENT CARE PER NURSING PROTOCOL Performed By: #### L501.080 #### [facility] Point of Care [address] [place] [address] BEDSIDE GLUCOSE Collected: 06/16/2018 Status: F Source: [place] 6:31 AM [facility] REPOSITORY TYPE CODE TESTS RESULT OUT OF REFERENCE UNITS RANGE LAB L501.080 70-110 mg/dL High BEDSIDE GLU 172 Result Comment: MANAGEMENT OF PATIENT CARE PER NURSING PROTOCOL Performed By: #### L501.080 #### [facility] Point of Care [address] [place] [address] BEDSIDE GLUCOSE Collected: 06/15/2018 Status: F Source: [place] 11:13 PM [facility] REPOSITORY TYPE CODE TESTS RESULT OUT OF REFERENCE UNITS RANGE LAB L501.080 70-110 mg/dL High BEDSIDE GLU 275 Result Comment: MANAGEMENT OF PATIENT CARE PER NURSING PROTOCOL Performed By: #### L501.080 #### [facility] Point of Care [address] [place] [address] BEDSIDE GLUCOSE Collected: 06/15/2018 Status: F Source: [place] 4:09 PM [facility] REPOSITORY TYPE CODE TESTS RESULT OUT OF REFERENCE UNITS RANGE LAB L501.080 70-110 mg/dL High BEDSIDE GLU 202 Result Comment: MANAGEMENT OF PATIENT CARE PER NURSING PROTOCOL Performed By: #### L501.080 #### [facility] Point of Care [address] [place] [address] BEDSIDE GLUCOSE Collected: 06/15/2018 Status: F Source: [place] 11:56 AM [facility] REPOSITORY TYPE CODE TESTS RESULT OUT OF REFERENCE UNITS RANGE LAB L501.080 70-110 mg/dL High BEDSIDE GLU 179 Result Comment: MANAGEMENT OF PATIENT CARE PER NURSING PROTOCOL Performed By: #### L501.080 #### [facility] Point of Care [address] [place] [address] BEDSIDE GLUCOSE Collected: 06/15/2018 Status: F Source: [place] 7:23 AM [facility] REPOSITORY TYPE CODE TESTS RESULT OUT OF REFERENCE UNITS RANGE LAB L501.080 70-110 mg/dL High BEDSIDE GLU 179 Result Comment: MANAGEMENT OF PATIENT CARE PER NURSING PROTOCOL Performed By: #### L501.080 #### [facility] Point of Care [address] [place] [address] BEDSIDE GLUCOSE Collected: 06/14/2018 Status: F Source: [place] 9:47 PM [facility] REPOSITORY TYPE CODE TESTS RESULT OUT OF REFERENCE UNITS RANGE LAB L501.080 70-110 mg/dL High BEDSIDE GLU 231 Result Comment: MANAGEMENT OF PATIENT CARE PER NURSING PROTOCOL Performed By: #### L501.080 #### [facility] Point of Care [address] [place] [address] BEDSIDE GLUCOSE Collected: 06/14/2018 Status: F Source: [place] 4:59 PM [facility] REPOSITORY TYPE CODE TESTS RESULT OUT OF REFERENCE UNITS RANGE LAB L501.080 70-110 mg/dL High BEDSIDE GLU 214 Result Comment: MANAGEMENT OF PATIENT CARE PER NURSING PROTOCOL Performed By: #### L501.080 #### [facility] Point of Care [address] [place] [address] 12 LEAD ELECTROCARDIOGRAM Observed: 06/14/2018 Status: F Source: [place] 3:49 PM [facility] REPOSITORY [facility] Cardiovascular Services [address] [place] [address] 12 Lead EKG 06/09/18 1727 MR#: [id number] Acct: [id number] Name: YADI LARSEN Rep #: [id number] : 1945 72 From: Bj Matute MD Attending Dr: Rolando Avila MD Status: DIS MAGALIE Ordering Dr: Rolando Avila MD Date: 06/09/18 Location: [facility] Sex: F C Admitted: 06/08/18 Test Reason [...] Abnormal ECG Confirmed by JUJU BERG, BJ ([id number]), non linear editor SAHARA TIPTON ([id number]) on 06/14/2018 3:48:29 PM Referred By: ELROY Confirmed By:BJ MATUTE MD 06/14/18 1548 Date Bj Matute MD CC: Rolando Avila MD; Bakari Ware MD Signed BEDSIDE GLUCOSE Collected: 06/14/2018 Status: F Source: [place] 11:36 AM [facility] REPOSITORY TYPE CODE TESTS RESULT OUT OF REFERENCE UNITS RANGE LAB L501.080 70-110 mg/dL High BEDSIDE GLU 152 Result Comment: MANAGEMENT OF PATIENT CARE PER NURSING PROTOCOL Performed By: #### L501.080 #### [facility] Point of Care [address] [place] [address] BEDSIDE GLUCOSE Collected: 06/14/2018 Status: F Source: [place] 7:02 AM [facility] REPOSITORY TYPE CODE TESTS RESULT OUT OF REFERENCE UNITS RANGE LAB L501.080 70-110 mg/dL High BEDSIDE GLU 181 Result Comment: MANAGEMENT OF PATIENT CARE PER NURSING PROTOCOL Performed By: #### L501.080 #### [facility] Point of Care [address] [place] [address] BEDSIDE GLUCOSE Collected: 06/13/2018 Status: F Source: [place] 9:43 PM [facility] REPOSITORY TYPE CODE TESTS RESULT OUT OF REFERENCE UNITS RANGE LAB L501.080 70-110 mg/dL High BEDSIDE GLU 245 Result Comment: MANAGEMENT OF PATIENT CARE PER NURSING PROTOCOL Performed By: #### L501.080 #### [facility] Point of Care [address] [place] [address] BEDSIDE GLUCOSE Collected: 06/13/2018 Status: F Source: [place] 5:08 PM [facility] REPOSITORY TYPE CODE TESTS RESULT OUT OF REFERENCE UNITS RANGE LAB L501.080 70-110 mg/dL High BEDSIDE GLU 130 Result Comment: MANAGEMENT OF PATIENT CARE PER NURSING PROTOCOL Performed By: #### L501.080 #### [facility] Point of Care [address] [place] [address] BEDSIDE GLUCOSE Collected: 06/13/2018 Status: F Source: [place] 11:37 AM [facility] REPOSITORY TYPE CODE TESTS RESULT OUT OF REFERENCE UNITS RANGE LAB L501.080 70-110 mg/dL High BEDSIDE GLU 166 Result Comment: MANAGEMENT OF PATIENT CARE PER NURSING PROTOCOL Performed By: #### L501.080 #### [facility] Point of Care [address] [place] [address] BEDSIDE GLUCOSE Collected: 06/13/2018 Status: F Source: [place] 6:31 AM [facility] REPOSITORY TYPE CODE TESTS RESULT OUT OF REFERENCE UNITS RANGE LAB L501.080 70-110 mg/dL High BEDSIDE GLU 169 Result Comment: MANAGEMENT OF PATIENT CARE PER NURSING PROTOCOL Performed By: #### L501.080 #### [facility] Point of Care [address] [place] [address] BEDSIDE GLUCOSE Collected: 06/12/2018 Status: F Source: [place] 8:16 PM [facility] REPOSITORY TYPE CODE TESTS RESULT OUT OF REFERENCE UNITS RANGE LAB L501.080 70-110 mg/dL High BEDSIDE GLU 201 Result Comment: MANAGEMENT OF PATIENT CARE PER NURSING PROTOCOL Performed By: #### L501.080 #### [facility] Point of Care [address] [place] [address] BEDSIDE GLUCOSE Collected: 06/12/2018 Status: F Source: [place] 4:31 PM [facility] REPOSITORY TYPE CODE TESTS RESULT OUT OF REFERENCE UNITS RANGE LAB L501.080 70-110 mg/dL High BEDSIDE GLU 187 Result Comment: MANAGEMENT OF PATIENT CARE PER NURSING PROTOCOL Performed By: #### L501.080 #### [facility] Point of Care [address] [place] [address] BEDSIDE GLUCOSE Collected: 06/12/2018 Status: F Source: [place] 12:06 PM [facility] REPOSITORY TYPE CODE TESTS RESULT OUT OF REFERENCE UNITS RANGE LAB L501.080 70-110 mg/dL High BEDSIDE GLU 194 Result Comment: MANAGEMENT OF PATIENT CARE PER NURSING PROTOCOL Performed By: #### L501.080 #### [facility] Point of Care [address] [place] [address] BEDSIDE GLUCOSE Collected: 06/12/2018 Status: F Source: [place] 6:38 AM [facility] REPOSITORY TYPE CODE TESTS RESULT OUT OF REFERENCE UNITS RANGE LAB L501.080 70-110 mg/dL High BEDSIDE GLU 156 Result Comment: MANAGEMENT OF PATIENT CARE PER NURSING PROTOCOL Performed By: #### L501.080 #### [facility] Point of Care [address] [place] [address] BEDSIDE GLUCOSE Collected: 06/11/2018 Status: F Source: [place] 11:02 PM [facility] REPOSITORY TYPE CODE TESTS RESULT OUT OF REFERENCE UNITS RANGE LAB L501.080 70-110 mg/dL High BEDSIDE GLU 212 Result Comment: MANAGEMENT OF PATIENT CARE PER NURSING PROTOCOL Performed By: #### L501.080 #### [facility] Point of Care [address] [place] [address] BEDSIDE GLUCOSE Collected: 06/11/2018 Status: F Source: [place] 8:18 PM [facility] REPOSITORY TYPE CODE TESTS RESULT OUT OF REFERENCE UNITS RANGE LAB L501.080 70-110 mg/dL High BEDSIDE GLU 228 Result Comment: MANAGEMENT OF PATIENT CARE PER NURSING PROTOCOL Performed By: #### L501.080 #### [facility] Point of Care [address] [place] [address] BEDSIDE GLUCOSE Collected: 06/11/2018 Status: F Source: [place] 4:59 PM [facility] REPOSITORY TYPE CODE TESTS RESULT OUT OF REFERENCE UNITS RANGE LAB L501.080 70-110 mg/dL High BEDSIDE GLU 220 Result Comment: MANAGEMENT OF PATIENT CARE PER NURSING PROTOCOL Performed By: #### L501.080 #### [facility] Point of Care [address] [place] [address] BEDSIDE GLUCOSE Collected: 06/11/2018 Status: F Source: [place] 11:41 AM [facility] REPOSITORY TYPE CODE TESTS RESULT OUT OF REFERENCE UNITS RANGE LAB L501.080 70-110 mg/dL High BEDSIDE GLU 306 Result Comment: MANAGEMENT OF PATIENT CARE PER NURSING PROTOCOL Performed By: #### L501.080 #### [facility] Point of Care [address] [place] [address] CBC W/DIFF, AUTOMATED Collected: 06/11/2018 Status: F Source: [place] 7:40 AM [facility] REPOSITORY TYPE CODE TESTS RESULT OUT OF [...] Lymph 1.84 Performed By: #### L100.0100 #### [facility] [address] [facility] [place], [place], [address] COMPREHENSIVE METABOLIC Collected: 06/11/2018 Status: F Source: [facility] 7:40 AM [facility] REPOSITORY TYPE CODE TESTS RESULT OUT OF [...] GAP 8 Performed By: #### L500.4050 #### [facility] [address] [place] [address]. [place], [place], [address] BEDSIDE GLUCOSE Collected: 06/11/2018 Status: F Source: [place] 7:08 AM [facility] REPOSITORY TYPE CODE TESTS RESULT OUT OF REFERENCE UNITS RANGE LAB L501.080 70-110 mg/dL High BEDSIDE GLU 206 Result Comment: MANAGEMENT OF PATIENT CARE PER NURSING PROTOCOL Performed By: #### L501.080 #### [facility] Point of Care [address] [facility] [place], [place] [address] BEDSIDE GLUCOSE Collected: 06/10/2018 Status: F Source: [place] 8:25 PM [facility] REPOSITORY TYPE CODE TESTS RESULT OUT OF REFERENCE UNITS RANGE LAB L501.080 70-110 mg/dL High BEDSIDE GLU 306 Result Comment: MANAGEMENT OF PATIENT CARE PER NURSING PROTOCOL Performed By: #### L501.080 #### [facility] Point of Care [address] [place] [address] BEDSIDE GLUCOSE Collected: 06/10/2018 Status: F Source: [place] 4:41 PM [facility] REPOSITORY TYPE CODE TESTS RESULT OUT OF REFERENCE UNITS RANGE LAB L501.080 70-110 mg/dL High BEDSIDE GLU 284 Result Comment: MANAGEMENT OF PATIENT CARE PER NURSING PROTOCOL Performed By: #### L501.080 #### [facility] Point of Care [address] [place] [address] DISCHARGE SUMMARY Observed: 06/10/2018 Status: F Source: [place] 4:39 PM [facility] REPOSITORY [facility] Medical Records Department [address] [place] [address] Discharge Summary 06/10/18 1233 MR#: [id number] Acct: [id number] Name: YADI LARSEN Rep #: [id number] : 1945 72 From: Rolando Avila MD PCP: Bakari Ware MD, Chi Status: ADM MAGALIE Y Location: [place] [address] Discharge Date and Diagnosis Date of Admission: [...] 70% luminal narrowing. CTA Brain: IMPRESSION: Normal [place] without a demonstrated aneurysm or [...] Indicated Code Visit OBSV E AND M: 68347 Observation care discharge 06/10/18 1639 <Electronically signed by Rolando Avila MD> Date Rolando Avila MD Cosigner Signature (if applicable): Date CC: Rolando Avila MD; Bakari Ware MD Signed 12 LEAD ELECTROCARDIOGRAM Observed: 06/10/2018 Status: F Source: [place] 2:26 PM [facility] REPOSITORY [facility] Cardiovascular Services [address] [place] [address] 12 Lead EKG 06/08/18 1030 MR#: [id number] Acct: [id number] Name: YADI LARSEN Rep #: [id number] : 1945 72 From: George Bourne MD Attending Dr: Rolando Avila MD Status: ADM MAGALIE Ordering Dr: Michael Ocampo MD Date: 06/08/18 Location: [facility] Sex: F C Admitted: 06/08/18 Test Reason [...] ECG Confirmed by CHESTER BERG, GEORGE ([id number]), non linear editor ABBE ELIAS ([id number]) on 06/10/2018 2:26:45 PM Referred By: ADOLFO Confirmed By:GEORGE BOURNE MD 06/10/18 1426 Date George Bourne MD CC: Michael Ocampo MD; Rolando Avila MD; Bakari Ware MD Signed DISCHARGE INSTRUCTION Observed: 06/10/2018 Status: F Source: [place] 12:33 PM [facility] REPOSITORY [facility] Medical Records Department [address] [place] [address] Instructions for Home/Discharge Instructions 06/10/18 1232 MR#: [id number] Acct: [id number] Name: YADI LARSEN Rep #: [id number] : 1945 72 From: Rolando Avila MD [...] 06/10/2018 Status: F Source: [place] 12:02 PM [facility] REPOSITORY TYPE CODE TESTS RESULT OUT OF REFERENCE UNITS RANGE LAB L501.080 70-110 mg/dL High BEDSIDE GLU 404 Result Comment: MANAGEMENT OF PATIENT CARE PER NURSING PROTOCOL Performed By: #### L501.080 #### [facility] Point of Care [address] [place] [address] BEDSIDE GLUCOSE Collected: 06/10/2018 Status: F Source: [place] 6:59 AM [facility] REPOSITORY TYPE CODE TESTS RESULT OUT OF REFERENCE UNITS RANGE LAB L501.080 70-110 mg/dL High BEDSIDE GLU 207 Result Comment: MANAGEMENT OF PATIENT CARE PER NURSING PROTOCOL Performed By: #### L501.080 #### [facility] Point of Care [address] [place] [address] BEDSIDE GLUCOSE Collected: 06/09/2018 Status: F Source: [place] 8:50 PM [facility] REPOSITORY TYPE CODE TESTS RESULT OUT OF REFERENCE UNITS RANGE LAB L501.080 70-110 mg/dL High BEDSIDE GLU 272 Result Comment: MANAGEMENT OF PATIENT CARE PER NURSING PROTOCOL Performed By: #### L501.080 #### [facility] Point of Care [address] [place] [address] BEDSIDE GLUCOSE Collected: 06/09/2018 Status: F Source: [place] 4:15 PM [facility] REPOSITORY TYPE CODE TESTS RESULT OUT OF REFERENCE UNITS RANGE LAB L501.080 70-110 mg/dL High BEDSIDE GLU 258 Result Comment: MANAGEMENT OF PATIENT CARE PER NURSING PROTOCOL Performed By: #### L501.080 #### [facility] Point of Care [address] [place], [place] [address] VENOUS DUPLEX LOWER Observed: 06/09/2018 Status: F Source: [place] [facility] 1:09 PM [facility] [facility] REPOSITORY [facility] Cardiovascular Services [address] [place] [address] Venous Duplex US, Unilateral 06/08/18 1124 MR#: [id number] Acct: [id number] Name: YADI LARSEN Rep #: [id number] : 1945 72 From: Luiz Simon MD Attending Dr: Rolando Avila MD Status: ADM MAGALIE Ordering Dr: Michael Ocampo MD Date: 06/08/18 Location: PCU Sex: F C Admitted: 06/08/18 Reason For [...] Bakari Ware Chi Performed By: Lorrie Orellana RVT, RDCS and Student 06/09/18 1309 Date Luiz Simon MD CC: Michael Ocampo MD; Rolando Avila MD; Bakari Ware MD Date Dictated: 06/08/18 1124 Date Transcribed: 06/09/18 1309 Oil Sprayer: Signed BEDSIDE GLUCOSE Collected: 06/09/2018 Status: F Source: [place] 11:23 AM [facility] REPOSITORY TYPE CODE TESTS RESULT OUT OF REFERENCE UNITS RANGE LAB L501.080 70-110 mg/dL High BEDSIDE GLU 274 Result Comment: MANAGEMENT OF PATIENT CARE PER NURSING PROTOCOL Performed By: #### L501.080 #### [facility] Laboratory Point of Care [address] [place], [place] [address] BEDSIDE GLUCOSE Collected: 06/09/2018 Status: F Source: [place] 6:55 AM [facility] REPOSITORY TYPE CODE TESTS RESULT OUT OF REFERENCE UNITS RANGE LAB L501.080 70-110 mg/dL High BEDSIDE GLU 166 Result Comment: MANAGEMENT OF PATIENT CARE PER NURSING PROTOCOL Performed By: #### L501.080 #### [facility] Laboratory Point of Care [address] [place], [place] [address] BASIC METABOLIC Collected: 06/09/2018 Status: F Source: [place] PROFILE ([facility]) 6:15 AM [facility] REPOSITORY TYPE CODE TESTS RESULT OUT OF [...] 8 Performed By: #### L500.2500, L500.4100 #### [facility] Laboratory [address] [place], [place], [address] LIPID PROFILE Collected: 06/09/2018 Status: F Source: [place] 6:15 AM [facility] REPOSITORY TYPE CODE TESTS RESULT OUT OF [...] 9 Performed By: #### L500.2500, L500.4100 #### [facility] Laboratory [address] [place], [address] BRAIN/HEAD WITHOUT Observed: 06/09/2018 Status: F Source: [place] CONTRAST 12:00 AM [facility] REPOSITORY [facility] Imaging Services [address] [place] [address] Brain/Head without Contrast MR#: [id number] Acct: [id number] Name: YADI LARSEN Rep #: [id number] : 1945 F 72 From: Leonard Galo MD PCP: Chaz BERG,Bakari Correa Status: ADM MAGALIE Study: Brain/Head without Contrast Date of Exam: 06/09/18 Exam# [id number] Ordering Dr: Rolando Avila MD STUDY: CT [...] CC: Rolando Avila MD; Bakari Ware MD Oil Sprayer: Signed BEDSIDE GLUCOSE Collected: 06/08/2018 Status: F Source: [place] 10:01 PM [facility] REPOSITORY TYPE CODE TESTS RESULT OUT OF REFERENCE UNITS RANGE LAB L501.080 70-110 mg/dL High BEDSIDE GLU 220 Result Comment: MANAGEMENT OF PATIENT CARE PER NURSING PROTOCOL Performed By: #### L501.080 #### [facility] Laboratory Point of Care [address] [place] [address] HISTORY AND PHYSICAL Observed: 06/08/2018 Status: F Source: [place] EXAM 5:47 PM [facility] REPOSITORY [facility] Medical Records Department [address] [place] [address] History and Physical 06/08/18 1720 MR#: [id number] Acct: [id number] Name: YADI LARSEN Rep #: [id number] : 1945 72 From: Rolando Avila MD PCP: Chaz BERG,Bakari Correa Status: ADM MAGALIE Y Location: [place] [address] Problem List (1) Type 2 diabetes mellitus [...] symptoms but does not take any medications SOCIAL SERVICES MANAGER History: No pertinent SOCIAL SERVICES MANAGER history Smoking Status: Former smoker Tobacco Use: [...] SCDs Code Visit OBSV E AND M: 14408 Observation care discharge 06/08/18 2397 <Electronically signed by Rolando Avila MD> Date Rolando Avila MD Cosigner Signature: Date (if applicable) CC: Rolando Avila MD; Bakari Ware MD Signed ECHO, COMPLETE W/ Observed: 06/08/2018 Status: F Source: [place] CONTRAST 4:39 PM [facility] REPOSITORY [facility] Cardiovascular Services [address] [place] [address] Echo Complete W/ Contrast 06/08/18 1528 MR#: [id number] Acct: [id number] Name: YADI LARSEN Rep #: [id number] : 1945 72 From: Michael Wing MD Attending Dr: Rolando Avila MD Status: ADM MAGALIE Ordering Dr: Rolando Avila MD Date: 06/08/18 Location: [facility] Sex: F C Admitted: 06/08/18 Reason For [...] Bakari Ware Chi Performed By: Janis Garcia, RDCS, RVT 06/08/18 1639 Date Michael Wing MD CC: Rolando Avila MD; Bakari Ware MD Date Dictated: 06/08/18 1528 Date Transcribed: 06/08/18 1639 Oil Sprayer: Signed BEDSIDE GLUCOSE Collected: 06/08/2018 Status: F Source: [place] 4:26 PM [facility] REPOSITORY TYPE CODE TESTS RESULT OUT OF REFERENCE UNITS RANGE LAB L501.080 70-110 mg/dL High BEDSIDE GLU 182 Result Comment: MANAGEMENT OF PATIENT CARE PER NURSING PROTOCOL Performed By: #### L501.080 #### [facility] Laboratory Point of Care [address] [facility] [place] [address] EMERGENCY DEPARTMENT Observed: 06/08/2018 Status: F Source: [place] SUMMARY 4:14 PM [facility] REPOSITORY [facility] Medical Records Department [address] [place] [address] Emergency Department Summary 06/08/18 1111 MR#: [id number] Acct: [id number] Name: YADI LARSEN Rep #: [id number] : 1945 72 From: Michael Ocampo MD PCP: Bakari Ware MD, Chi Status: ADM MAGALIE - ER Visit Summary Date of Service: 06/08/18 Chief Complaint: Stroke History of Present Illness: The patient is a 72 F with stroke symptoms. Patient was last seen normal at 6:20 AM this morning. She went to respiratory care assistant and had a bladder stimulator placed. She [...] leg swelling This note was generated with ShareTracker dictation software. It may contain incorrect words, spelling, [...] problems, contact your Primary Care Provider. Call [facility] ([phone]) or report to the closest Emergency Room. Call 911 if necessary. 06/08/18 4011 <Electronically signed by Michael Ocampo MD> Date Michael Ocampo MD Cosigner Signature (If Indicated): Date CC: Bakari Ware MD CONSULTATION Observed: 06/08/2018 Status: F Source: [place] 2:04 PM [facility] REPOSITORY [facility] Medical Records Department [address] [place] [address] Consultation 06/08/18 1348 MR#: [id number] Acct: [id number] Name: YADI LARSEN Rep #: [id number] : 1945 72 From: Musa Llamas MD PCP: Bakari Ware MD, Chi Status: ADM MAGALIE Y Location: [place] [address] Reason for Consult Date of Consultation: 06/08/18 [...] symptoms but does not take any medications SOCIAL SERVICES MANAGER History: No pertinent SOCIAL SERVICES MANAGER history Smoking Status: Former smoker - *Family [...] 06/08/2018 Status: F Source: [place] 12:45 PM [facility] REPOSITORY TYPE CODE TESTS RESULT OUT OF [...] Lymph 2.18 Performed By: #### L100.0100 #### [facility] Laboratory [place], [address] CBC W/DIFF, AUTOMATED Collected: 06/08/2018 Status: F Source: [place] 10:29 AM [facility] REPOSITORY TYPE CODE TESTS RESULT OUT OF [...] Lymph 2.19 Performed By: #### L100.0100 #### [facility] Laboratory [address] [place], [address] PROTHROMBIN TIME W/INR Collected: 06/08/2018 Status: F Source: [place] 10:29 AM [facility] REPOSITORY TYPE CODE TESTS RESULT OUT OF RANGE REFERENCE UNITS LAB L300.4150 11.7-14.9 SECONDS Normal PROTIME 14.4 LAB L300.4200 Normal INR 1.1 Performed By: #### L300.3900, L300.4310 #### [facility] Laboratory [address] [place], [address] PARTIAL THROMBOPLAST Collected: 06/08/2018 Status: F Source: [place] TIME 10:29 AM [facility] REPOSITORY TYPE CODE TESTS RESULT OUT OF RANGE REFERENCE UNITS LAB L300.4310 24.1-36.2 Seconds Normal PTT 31.5 Performed By: #### L300.3900, L300.4310 #### [facility] Laboratory [address] [place], [address] BASIC METABOLIC Collected: 06/08/2018 Status: F Source: [place] PROFILE (BMP) 10:29 AM [facility] REPOSITORY TYPE CODE TESTS RESULT OUT OF [...] 8 Performed By: #### L500.2500, L501.4010 #### [facility] Laboratory [address] [facility] [place], [address] TROPONIN-I Collected: 06/08/2018 Status: F Source: [place] 10:29 AM [facility] REPOSITORY TYPE CODE TESTS RESULT OUT OF RANGE REFERENCE UNITS LAB L501.4010 <0.045 ng/mL Normal < 0.015 TROPONIN-I Result Comment: TROPONIN-I EXPECTED VALUES <0.045 Negative 0.045 - 0.590 Consistent with Cardiac Damage > OR = 0.600 Critical Value Not every elevated troponin is indicative of NV. These values should be used with clinical judgement in examining the patient's clinical picture for diagnosis. To establish a diagnosis of NV versus myocardial injury, there must be a demonstrated rise and/or fall in the troponin values, in addition to ischemic symptoms, EKG changes, new regional wall motion abnormality, and/or angiographical evidence. PLEASE NOTE: REFERENCE RANGES EDITED 17 Performed By: #### L500.2500, L501.4010 #### [facility] Laboratory [address] [facility] [place], [address] CTA NECK W/WO Observed: 06/08/2018 Status: F Source: [place] CONTRAST 10:20 AM [facility] REPOSITORY [facility] Imaging Services [address] [facility] [place] [address] CTA Neck W/WO Contrast MR#: [id number] Acct: [id number] Name: YADI LARSEN Rep #: [id number] : 1945 F 72 From: Tyson Lim MD PCP: Chaz BERG,Bakari Correa Status: ADM MAGALIE Study: CTA Neck W/WO Contrast Date of Exam: 06/08/18 Exam# [id number] Ordering Dr: Michael Ocampo MD STUDY: CTA [...] Tyson Lim MD at 10:50 EST Tel [phone], Service support , STUDY: CTA OF THE [...] There is no demonstrated aneurysm of the [place]. CT/CTA Neck W/WO Contrast IMPRESSION: Normal [place] without a demonstrated aneurysm or hemodynamically significant stenosis. N.B. : The above information has been verbally conveyed by Tyson Lim MD to Michael Ocampo on 06/08/2018 10:50:29 (ET). Electronically Signed: Tyson Lim MD at 10:52 EST Tel [phone], Service support , CC: Michael Ocampo MD; Bakari Ware MD Oil Sprayer: Signed CTA HEAD W/WO Observed: 06/08/2018 Status: F Source: [place] CONTRAST 10:20 AM [facility] REPOSITORY [facility] Imaging Services [address] [place] [address] CTA Head W/WO Contrast MR#: [id number] Acct: [id number] Name: YADI LARSEN Rep #: [id number] : 1945 F 72 From: Tyson Lim MD PCP: Bakari Ware MD, Chi Status: ADM MAGALIE Study: CTA Head W/WO Contrast Date of Exam: 06/08/18 Exam# [id number] Ordering Dr: Michael Ocampo MD STUDY: CTA [...] Tyson Lim MD at 10:50 EST Tel [phone], Service support , STUDY: CTA OF THE [...] There is no demonstrated aneurysm of the [place]. CT/CTA Head W/WO Contrast IMPRESSION: Normal [place] without a demonstrated aneurysm or hemodynamically significant stenosis. N.B. : The above information has been verbally conveyed by Tyson Lim MD to Michael Ocampo on 06/08/2018 10:50:29 (ET). Electronically Signed: Tyson Lim MD at 10:52 EST Tel [phone], Service support , CC: Michael Ocampo MD; Bakari Ware MD Oil Sprayer: Signed BRAIN/HEAD WITHOUT Observed: 06/08/2018 Status: F Source: [place] CONTRAST 10:18 AM [facility] REPOSITORY [facility] Imaging Services [address] [place] [address] Brain/Head without Contrast MR#: [id number] Acct: [id number] Name: YADI LARSEN Rep #: [id number] : 1945 F 72 From: Tyson Lim MD PCP: Bakari Ware MD, Chi Status: REG ER Study: Brain/Head without Contrast Date of Exam: 06/08/18 Exam# [id number] Ordering Dr: Michael Ocampo MD STUDY: CT [...] on 06/08/2018 10:44:50 (ET). Electronically Signed: Tyson iLm MD at 10:46 EST Tel [phone], Service support , CC: Michael Ocampo MD; Bakari Ware MD Oil Sprayer: Signed CHEST 1 VIEW Observed: 06/08/2018 Status: F Source: [place] 10:18 AM [facility] REPOSITORY [facility] Imaging Services [address] [place] [address] Chest 1 View MR#: [id number] Acct: [id number] Name: YADI LARSEN Rep #: [id number] : 1945 F 72 From: Tyson Lim MD PCP: Bakari Ware MD, Chi Status: REG ER Study: Chest 1 View Date of Exam: 06/08/18 Exam# [id number] Ordering Dr: Michael Ocampo MD STUDY: X-RAY [...] Tyson Lim MD at 11:16 EST Tel [phone], Service support , CC: Michael Ocampo MD; Bakari Ware MD Oil Sprayer: Signed BEDSIDE GLUCOSE Collected: 06/08/2018 Status: F Source: [place] 10:10 AM [facility] REPOSITORY TYPE CODE TESTS RESULT OUT OF REFERENCE UNITS RANGE LAB L501.080 70-110 mg/dL High BEDSIDE GLU 221 Result Comment: MANAGEMENT OF PATIENT CARE PER NURSING PROTOCOL Performed By: #### L501.080 #### [facility] Laboratory Point of [place] [address] [address] BEDSIDE GLUCOSE Collected: 06/08/2018 Status: F Source: [place] 9:50 AM [facility] REPOSITORY TYPE CODE TESTS RESULT OUT OF REFERENCE UNITS RANGE LAB L501.080 70-110 mg/dL High BEDSIDE GLU 242 Result Comment: MANAGEMENT OF PATIENT CARE PER NURSING PROTOCOL Performed By: #### L501.080 #### [facility] Laboratory Point of Care [address] [place] [address] PELVIS 1 OR 2 VIEWS Observed: 06/08/2018 Status: F Source: [place] 8:28 AM [facility] REPOSITORY [facility] Imaging Services [address] [place] [address] Pelvis 1 or 2 Views MR#: [id number] Acct: [id number] Name: YADI LARSEN Rep #: [id number] : 1945 F 72 From: Tyson Lim MD PCP: Chaz BERG,Bakari Correa Status: [facility] Study: Pelvis 1 or 2 Views Date of Exam: 06/08/18 Exam# [id number] Ordering Dr: Connor Brito MD STUDY: X-RAY [...] Tyson Lim MD at 9:29 EST Tel [phone], Service support , CC: Connor Brito MD; Bakari Ware MD Oil Sprayer: Signed OPERATIVE REPORT Observed: 06/08/2018 Status: F Source: [place] 8:25 AM [facility] REPOSITORY [facility] Medical Records Department [address] [place] [address] Operative Report 06/08/18 0820 MR#: [id number] Acct: [id number] Name: YADI LARSEN Rep #: [id number] : 1945 72 From: Connor Brito MD PCP: Chaz BERG,Bakari Correa Status: REG SDC Y Location: [place] [address] Report of Operation Date of Procedure: 06/08/18 [...] DISCHARGE INSTRUCTION Observed: 06/08/2018 Status: F Source: [place] 7:29 AM [facility] REPOSITORY [facility] Medical Records Department [address] [place] [address] Instructions for Home/Discharge Instructions 06/08/18 0727 MR#: [id number] Acct: [id number] Name: YADI LARSEN Rep #: [id number] : 1945 72 From: Connor Brito MD PCP: Chaz BREG,Bakari Correa Status: REG [facility] Discharge Diet: Light diet - advance as [...] MD When: next week to see if allyson is working 06/08/18 3865 <Electronically signed by Connor Brito MD> Date Connor Brito MD CC: Bakari Ware MD BEDSIDE GLUCOSE Collected: 06/08/2018 Status: F Source: [place] 6:50 AM [facility] REPOSITORY TYPE CODE TESTS RESULT OUT OF REFERENCE UNITS RANGE LAB L501.080 70-110 mg/dL High BEDSIDE GLU 236 Result Comment: MANAGEMENT OF PATIENT CARE PER NURSING PROTOCOL Performed By: #### L501.080 #### [facility] Laboratory Point of Care [address] [place] [address] Observed: 05/27/2018 Status: F Source: [place] CULTURE, URINE 10:30 AM [facility] REPOSITORY Urine Culture ORGANISM 1: Presumptive E. coli [place] Count >100,000 Presumptive E. coli: REACTION Amoxacillin/Clavulanic [...] <=20 S (NF) indicates non-formulary drug at [facility]. Approval by Infectious Disease Specialist required before non-formulary drugs may be ordered and/or dispensed. Performed By: #### M100.0650 #### [facility] Laboratory [address] [place] [address], [address] PROGRESS Observed: 05/17/2018 Status: COMPLETED Source: [place] 9:10 AM [facility] REPOSITORY HNO ID: [id number] Author: Etelvina Mckeon Cma Service: (none) Author Type: (none) Type: Progress Notes Filed: 05/17/2018 9:10 AM Note Text: Patient is seeing a different physician. I removed Dr. Bradford as PCP PROGRESS Observed: 05/12/2018 Status: COMPLETED Source: [place] 9:06 AM [facility] REPOSITORY HNO ID: [id number] Author: Etelvina Mckeon Cma Service: (none) Author Type: (none) Type: Progress Notes Filed: 05/17/2018 9:10 AM Note Text: [facility] C[facility] GAP REGISTRY DOCUMENTATION (OUTSIDE TEAMLET) Provider Action/FYI: PSR Action/FYI: *schedule physical appointment with labs prior *discuss HM Patient identified by name and date of . Last BP/Labs: Blood Pressure: Last 3 Encounter BP Readings: Date: BP: 06/09/2017 128/85 12/17/2016 118/78 10/09/2016 130/70 Lipids: Cholesterol, Total (mg/dL) Date Value 08/17/2015 Test sent to [facility]. 12/05/2014 113 HDL Cholesterol (mg/dL) Date Value 08/17/2015 Test sent to [facility]. 12/05/2014 60 LDL Cholesterol (mg/dL) Date Value 08/17/2015 Test sent to [facility]. 12/05/2014 46 Triglyceride (mg/dL) Date Value 08/17/2015 Test sent to [facility]. 12/05/2014 35 HGB A1C: Lab Results Component Value Date HBA1C 6.5 05/21/2016 HBA1C Test sent to [facility]. 08/17/2015 HBA1C 6.4 12/05/2014 HBA1C [...] office visit:Physical with labs prior Etelvina Mckeon Apprenticeship Training Representative CNPTOUTREACH Observed: 05/12/2018 Status: COMPLETED Source: [place] 12:00 AM [facility] REPOSITORY Patient Outreach (INTMWS) YADI LARSEN ([id number]) 1945 F Date Time Provider Department 05/12/18 ETELVINA MCKEON (PARAMEDICAL AIDE) INTMWS During your visit today, we recorded the following information about you: Etelvina Mckeon Cma 05/17/2018 9:10 AM Signed [facility] CARE GAP REGISTRY DOCUMENTATION (OUTSIDE TEAMLET) Provider Action/FYI: PSR Action/FYI: *schedule physical appointment with labs prior *discuss HM Patient identified by name and date of . Last BP/Labs: Blood Pressure: Last 3 Encounter BP Readings: Date: BP: 06/09/2017 128/85 12/17/2016 118/78 10/09/2016 130/70 Lipids: Cholesterol, Total (mg/dL) Date Value 08/17/2015 Test sent to [facility]. 12/05/2014 113 HDL Cholesterol (mg/dL) Date Value 08/17/2015 Test sent to [facility]. 12/05/2014 60 LDL Cholesterol (mg/dL) Date Value 08/17/2015 Test sent to [facility]. 12/05/2014 46 Triglyceride (mg/dL) Date Value 08/17/2015 Test sent to [facility]. 12/05/2014 35 HGB A1C: Lab Results Component Value Date HBA1C 6.5 05/21/2016 HBA1C Test sent to [facility]. 08/17/2015 HBA1C 6.4 12/05/2014 HBA1C [...] office visit:Physical with labs prior Etelvina Mckeon [facility] Etelvina Mckeon [facility] 05/17/2018 9:10 AM Signed Patient is seeing [...] diabetes mellitus with diabetic neuropathy, unspecified whether division officer weapons department insulin use (HCC) [E11.40] Order(s):HGB A1C [[id number]] Order #: [id number] FUTURE ALBUMIN/CREAT RATIO RND UR [SQUACR] Order #: [id number] FUTURE BASIC METABOLIC PNL [SQBMP] Order #: [id number] FUTURE LIPID PANEL BASIC [SQLIPB] Order #: [id number] FUTURE Prescriptions as of 05/12/2018 Sig: CLOPIDOGREL 75 MG TABLET Take 1 tablet by mouth once d* COMPOUNDED PRESCRIPTION [facility]* [...] Lift chair. Dx. I69.3 M21.37* COMPOUNDED PRESCRIPTION alf - diabetic ma* COMPOUNDED PRESCRIPTION Left AFO [...] INVALID FOR* More... PAD (peripheral artery disease) ([facility]) [I73.9] INVALID FOR* Left foot drop [M21.372] INVALID FOR* Closed traumatic displaced fracture of base of *INVALID FOR* Left hemiparesis ([facility]) [G81.94] INVALID FOR* Abnormality of gait [R26.9] INVALID FOR* CVA, old, hemiparesis ([facility]) [I69.359] INVALID FOR* Encounter Status:Closed by ETELVINA MCKEON CMA on 05/17/18 URINALYSIS, COMPLETE Collected: 04/19/2018 Status: F Source: [place] 1:33 PM [facility] REPOSITORY Order Comment: How was Urine Obtained? [...] MUCUS, URINE Performed By: #### L400.0001 #### [facility] [address] [place], [address] Observed: 04/19/2018 Status: F Source: [place] CULTURE, URINE 1:33 PM [facility] REPOSITORY Urine Culture ORGANISM 1: Presumptive E. coli [place] Count >100,000 Presumptive E. coli: REACTION Amoxacillin/Clavulanic [...] <=20 S (NF) indicates non-formulary drug at [facility]. Approval by Infectious Disease Specialist required before non-formulary drugs may be ordered and/or dispensed. Performed By: #### M100.0650 #### [facility] Laboratory [address] [place], [address] ANKLE MIN 3 VIEWS Observed: 04/14/2018 Status: F Source: [place] 2:42 PM [facility] REPOSITORY [facility] Imaging Services [address] [place] [address] Ankle min 3 Views MR#: [id number] Acct: [id number] Name: YADI LARSEN #: [id number] : 1945 F 72 From: Alejandrina Mota MD PCP: Bakari Ware MD, Chi Status: REG CLI Study: Ankle min 3 Views Date of Exam: 04/14/18 Exam# [id number] Ordering Dr: Bakari Ware MD STUDY: X-RAY [...] Service support , CC: Bakari Ware MD Oil Sprayer: Signed FOOT MIN 3 VIEWS Observed: 04/14/2018 Status: F Source: [place] 2:42 PM [facility] REPOSITORY [facility] Imaging Services [address] [place] [address] Foot min 3 Views MR#: [id number] Acct: [id number] Name: YADI LARSEN Rep #: [id number] : 1945 F 72 From: Rolan Rascon MD PCP: Bakari Ware MD, Chi Status: REG CLI Study: Foot min 3 Views Date of Exam: 04/14/18 Exam# [id number] Ordering Dr: Bakari Ware MD STUDY: X-RAY [...] Service support , CC: Bakari Ware MD Oil Sprayer: Signed CBC W/DIFF, AUTOMATED Collected: 04/14/2018 Status: F Source: [place] 1:05 PM [facility] REPOSITORY TYPE CODE TESTS RESULT OUT OF [...] Lymph 1.71 Performed By: #### L100.0100 #### [facility] [address] [place], [place], [address] VITAMIN D,25 HYDROXY Collected: 04/14/2018 Status: F Source: [place] 1:05 [facility] REPOSITORY TYPE CODE TESTS RESULT OUT OF REFERENCE UNITS RANGE LAB L506.1000 29.95-100.01 ng/mL Low Vitamin D 22.6 25-OH Result Comment: Vitamin D 25(OH) Status Range Deficiency <20 ng/mL (50nmol/L) Insuffciency 20 - 30 ng/mL (50 - 75 nmol/L) Sufficiency 30 - 100 ng/mL (75 - 250 nmol/L) Toxicity >100 ng/mL (>250 nmol/L) Performed By: #### L506.1000 #### [facility] [address] [place], [place], [address] COMPREHENSIVE METABOLIC Collected: 04/14/2018 Status: F Source: [facility] 1:05 PM [facility] REPOSITORY TYPE CODE TESTS RESULT OUT OF [...] 5 Performed By: #### L500.4050, L501.9520 #### [facility] Laboratory [facility] [address] [place], [address] THYROID STIM HORMONE Collected: 04/14/2018 Status: F Source: [place] (TSH) 1:05 PM [facility] REPOSITORY TYPE CODE TESTS RESULT OUT OF RANGE REFERENCE UNITS LAB L501.9520 0.358-3.74 uIU/mL Normal TSH 0.66 Performed By: #### L500.4050, L501.9520 #### [facility] [address] [place], [address] LUNG Observed: 04/08/2018 Status: F Source: [place] SCREENING 3:52 PM [facility] REPOSITORY [facility] Imaging Services [address] [place] [address] Lung Screening MR#: [id number] Acct: [id number] Name: YADI LARS[place] Rep #: [id number] : 1945 F 72 From: Ab Hylton DO PCP: Chaz BERG,Bakari Correa Status: REG CLI Study: Low Dose CT Lung Screening Date of Exam: 04/08/18 Exam# [id number] Ordering Dr: Bakari Ware MD STUDY: LOW [...] Ab Hylton DO at 21:43 EDT Tel [phone], Service support , CC: Bakari Ware MD Oil Sprayer: Signed CBC W/DIFF, AUTOMATED Collected: 12/22/2017 Status: F Source: [place] 4:24 PM [facility] REPOSITORY TYPE CODE TESTS RESULT OUT OF [...] Lymph 1.91 Performed By: #### L100.0100 #### [facility] [address] [place], [place], [address] VITAMIN D,25 HYDROXY Collected: 12/22/2017 Status: F Source: [place] 4:24 PM [facility] REPOSITORY TYPE CODE TESTS RESULT OUT OF REFERENCE UNITS RANGE LAB L506.1000 29.95-100.01 ng/mL Low Vitamin D 21.1 25-OH Result Comment: Vitamin D 25(OH) Status Range Deficiency <20 ng/mL (50nmol/L) Insuffciency 20 - 30 ng/mL (50 - 75 nmol/L) Sufficiency 30 - 100 ng/mL (75 - 250 nmol/L) Toxicity >100 ng/mL (>250 nmol/L) Performed By: #### L506.1000 #### [facility] [address] [place], [address] COMPREHENSIVE METABOLIC Collected: 12/22/2017 Status: F Source: [place] [facility] 4:24 PM [facility] REPOSITORY TYPE CODE TESTS RESULT OUT OF [...] 6 Performed By: #### L500.4050, L501.9520 #### [facility] [address] [place], [place], [address] THYROID STIM HORMONE Collected: 12/22/2017 Status: F Source: [place] (TSH) 4:24 PM [facility] REPOSITORY TYPE CODE TESTS RESULT OUT OF RANGE REFERENCE UNITS LAB L501.9520 0.358-3.74 uIU/mL Normal TSH 0.59 Performed By: #### L500.4050, L501.9520 #### [facility] [address] [place], [address] CBC W/DIFF, AUTOMATED Collected: 09/23/2017 Status: F Source: [place] 2:43 PM [facility] REPOSITORY TYPE CODE TESTS RESULT OUT OF [...] Lymph 2.11 Performed By: #### L100.0100 #### [facility] [address] [place], [address] COMPREHENSIVE METABOLIC Collected: 09/23/2017 Status: F Source: [facility] 2:43 PM [facility] REPOSITORY TYPE CODE TESTS RESULT OUT OF [...] 7 Performed By: #### L500.4050, L501.9520 #### [facility] [address] [place], [address] THYROID STIM HORMONE Collected: 09/23/2017 Status: F Source: [place] (TSH) 2:43 PM [facility] REPOSITORY TYPE CODE TESTS RESULT OUT OF RANGE REFERENCE UNITS LAB L501.9520 0.358-3.74 uIU/mL Normal TSH 1.20 Performed By: #### L500.4050, L501.9520 #### [facility] [address] [place], [address] VITAMIN D,25 HYDROXY Collected: 09/23/2017 Status: F Source: [place] 2:43 PM [facility] REPOSITORY TYPE CODE TESTS RESULT OUT OF REFERENCE UNITS RANGE LAB L506.1000 29.95-100.01 ng/mL Low Vitamin D 25.7 25-OH Result Comment: Vitamin D 25(OH) Status Range Deficiency <20 ng/mL (50nmol/L) Insuffciency 20 - 30 ng/mL (50 - 75 nmol/L) Sufficiency 30 - 100 ng/mL (75 - 250 nmol/L) Toxicity >100 ng/mL (>250 nmol/L) Performed By: #### L506.1000 #### [facility] [address] [place], [address] BASIC METABOLIC Collected: 09/16/2017 Status: F Source: [place] PROFILE (BMP) 3:16 PM [facility] REPOSITORY TYPE CODE TESTS RESULT OUT OF [...] GAP 7 Performed By: #### L500.2500 #### [facility] [address] [place], [address] Observed: 09/08/2017 Status: F Source: [place] CULTURE, URINE 11:55 AM [facility] REPOSITORY Urine Culture ORGANISM 1: Presumptive E. coli [place] Count >100,000 Presumptive E. coli: REACTION Amoxacillin/Clavulanic [...] <=20 S (NF) indicates non-formulary drug at [facility]. Approval by Infectious Disease Specialist required before non-formulary drugs may be ordered and/or dispensed. Performed By: #### M100.0650 #### [facility] [address] [place], [address] MODIFIED BARIUM Observed: 09/03/2017 Status: F Source: [place] SWALLOW STUDY 2:47 PM [facility] REPOSITORY [facility] Speech Pathology [address] [place] [address] Modified Barium Swallow Study MR#: [id number] Acct: [id number] Name: YADI LARSEN Rep #: [id number] : 1945 71 From: Rashi Brasher M.A. CFY-MIME ARTIST PRIMARY / SECONDARY DIAGNOSIS: dysphagia (R13.10) REFERRING [...] 1447 <Electronically signed by Rashi Brasher M.A., CFY-MIME ARTIST> Date Rashi Brasher M.A., CFY-MIME ARTIST Co-Signature Required for all Medicare patients Date/Time Co-Signature CC: SWALLOWING FUNCTION Observed: 09/03/2017 Status: F Source: [place] W/VIDEO 1:18 PM [facility] REPOSITORY [facility] Imaging Services [address] [place] [address] Swallowing Function w/Video MR#: [id number] Acct: [id number] Name: YADI LARSEN Rep #: [id number] : 1945 F 71 From: Tyson Lim MD PCP: Chaz BERG,Bakari Correa Status: REG CLI Study: Swallowing Function w/Video Date of Exam: 09/03/17 Exam# [id number] Ordering Dr: Bakari Ware MD STUDY: SWALLOWING [...] Tyson Lim MD at 15:46 EST Tel [phone], Service support , CC: Bakari Ware MD Oil Sprayer: Signed BASIC METABOLIC Collected: 09/01/2017 Status: F Source: [place] PROFILE (BMP) 2:02 PM [facility] REPOSITORY TYPE CODE TESTS RESULT OUT OF [...] GAP 10 Performed By: #### L500.2500 #### [facility] [address] [place], [address] VENOUS DUPLEX LOWER Observed: 08/25/2017 Status: F Source: [place] EXTREMITY 6:55 PM [facility] REPOSITORY [facility] Cardiovascular Services [address] [place] [address] Venous Duplex US - Dean Extrem 08/25/17 1454 MR#: [id number] Acct: [id number] Name: YADI LARSEN Rep #: [id number] : 1945 71 From: Luiz Simon MD [...] MD CC: Bakari Ware MD Date Dictated: 08/25/171453 Date Transcribed: 08/25/171853 Oil Sprayer: Signed NCS AND/OR EMG Observed: 08/18/2017 Status: F Source: [place] PATIENT 11:23 AM [facility] REPOSITORY [facility] Pulmonary Services/Neurology [address] [place] [address] MR#: [id number] Acct: [id number] Name: YADI LARSEN Rep #: [id number] : 1945 71 From: Musa Llamas MD Referring Dr: Becky Brurows NP Status: REG CLI Ordering Dr: Date: Location: [facility] Sex: F C NCS and/or EMG Patient [...] Llamas MD; Bakari Ware MD Date Dictated: 08/18/171118 Date Transcribed: 08/18/171118 Oil Sprayer: MAMTA Signed ALLERGIES ALLERGIES DATE TYPE / CODE NAME / CODE REACTION SEVERITY SOURCE 06/08/2018 Drug promethazine Nausea Unknown [place] Allergy/416 HCl/[id number](RXNO [facility] 205194([facility] [place]) Repository ENCOUNTERS ENCOUNTERS ADMIT/DISCHARGE ACCOUNT ADMITTING ENCOUNTER LOCATION SOURCE NUMBER CLASS 07/18/2018 [id number] Ambulatory [place] 9 [facility] ing:LAB.FUTUR Repository E 07/13/2018 [id number] Ambulatory [place] 0 [facility] ing:PSN Repository 07/07/2018 [id number] Ambulatory [place] 3 [facility] ing:POLAB3 Repository 06/29/2018 [id number] Ambulatory [place] 5 [facility] ing:POLAB3 Repository 06/22/2018/ [id number] Ambulatory [place] 8 5 [facility] ing:SDCRoom: Repository AC09 06/10/2018/ [id number] Muriel, Inpatient [place] 7 [place] Encounter [facility] ing:RURoom: Repository [id number]: 1 06/10/2018 [id number] Muriel Ambulatory BMSBuilding:B [place] 8 [place] Repository 06/09/2018 [id number] Ambulatory BMSBuilding:W [place] 8 [facility] Repository 06/08/2018/ [id number] [place], Ambulatory [place] 8 6 Rolando Carri [facility] Hospital ing:PCURoom: Repository [id number]: 1 06/08/2018 [id number] [place], Ambulatory BMSBuilding:B [place] 2 Rolando Christina [place].[facility] Repository 06/08/2018 [id number] [place], Ambulatory BMSBuilding:B [place] 5 Rolando Christina [place].[facility] Repository 06/08/2018 [id number] [place], Ambulatory BMSBuilding:B [place] 7 Rolando Christina [place] Repository 06/08/2018/ [id number] Ambulatory BMSBuilding:W [place] 8 2 [facility] Repository 06/08/2018/ [id number] Ambulatory [place] 8 0 [facility] Hospital ing:SDCRoom: Repository AC09 05/27/2018 [id number] Ambulatory [place] 7 [facility] ing[facility]SPEC Repository 04/19/2018 [id number] Ambulatory [place] 6 [facility] Hospital ing:LABSPEC Repository 04/14/2018 [id number] Ambulatory [place] 3 [facility] ing:RAD Repository 04/08/2018 [id number] Ambulatory [place] 8 [facility] ing:CT Repository 12/22/2017 [id number] Ambulatory [place] 8 [facility] ing:POLAB3 Repository 09/23/2017 [id number] Ambulatory [place] 3 [facility] ing:POLAB3 Repository 09/16/2017 [id number] Ambulatory [place] 0 [facility] ing:POLAB3 Repository 09/08/2017 [id number] Ambulatory [place] 9 [facility] ing:LAB.FUTUR Repository E 09/03/2017 [id number] Ambulatory [place] 6 [facility] ing:RAD Repository 09/01/2017 [id number] Amb[place] 7 [facility] ing:POLAB3 Repository 08/25/2017 [id number] Ambulatory [place] 0 [facility] ing:CVS Repository 08/18/2017 [id number] Ambulatory [place] 9 [facility] ing:PSN Repository PAYERS PAYERS ENCOUNTER GUARANTOR PAYER SUBSCRIBER SOURCE 07/18/2018 YADI S Primary YADI S [place] [id number] Insurance:SUMMA CARE KARVONENDOB: Community [place] MEDICARE[place] [id number] Number: Repository [address]Vkm: (330 [id number] [phone] (HP) Date:2770-56-05WS [address] [place] [address]MH: 07/18/2018 Secondary NOT GIVENUNK [place] Insurance:SELF PAY [facility] Number: Effective Repository Date:2018-07-14 07/13/2018 YADI S Primary YADI S [place] [id number] Insurance:SUMMA CARE KARVONENDOB: Community [place] MEDICAREPolicy [id number], [place] Number: Repository [address]Lvx: 330 [id number] [phone] () Date:7426-51-35BN [address] [place] [address]OM: 07/13/2018 Secondary NOT GIVENUNK [place] Insurance:SELF PAY [facility] Number: Effective Repository Date:2018-04-05 07/07/2018 YADI S Primary YADI S [place] [id number] Insurance:SUMMA CARE KARVONENDOB: Community [place] MEDICAREPolicy [id number], [place] Number: Repository [address]Xrc: 330 [id number] [phone] (HP) Date:2826-84-16JY [address] [place] [address]47[address]WQ: 07/07/2018 Secondary NOT GIVENUNK [place] Insurance:SELF PAY [facility] Number: Effective Repository Date:2018-07-07 06/29/2018 YADI S Primary YADI S [place] [id number] Insurance:SUMMA CARE KARVONENDOB: Community [place] MEDICAREPolicy [id number], [place] Number: Repository [address]Fee: (330) [id number] [phone] (HP) Date:6429-87-32OB [address], [place] [address]PQ: 06/29/2018 Secondary NOT GIVENUNK [place] Insurance:SELF PAY [facility] Number: Effective Repository Date:2018-06-29 06/22/2018 YADI S Primary YADI S [place] [id number] Insurance:SUMMA CARE KARVONENDOB: Community [place] MEDICARE[place] [id number] Number: Repository [address]Mqe: (330) [id number] [phone] (HP) Date:1294-63-02QH [address] [place], [place] [address]TW: 06/22/2018 Secondary NOT GIVENUNK [place] Insurance:SELF PAY [facility] Number: Effective Repository Date:2018-04-15 06/10/2018 YADI S Primary YADI S [place] [id number] Insurance:SUMMA CARE KARVONENDOB: Community [place] MEDICAREPolicy [id number], [place] Number: Repository [address]Jvz: (330) [id number] [phone] (HP) Date:5730-78-68TH [address] [facility], [place] [address]NP: 06/10/2018 Secondary NOT GIVENUNK [place] Insurance:SELF PAY [facility] Number: Effective Repository Date:2018-06-10 06/10/2018 YADI S Primary YADI S [place] [id number] Insurance:SUMMA CARE KARVONENDOB: Community [place] MEDICARE[place] [id number], [place] Number: Repository [address]Pvw: (330) [id number] [phone] (HP) Date:7538-29-29VG [address] [place] [address]23[address]YT: 06/10/2018 Secondary NOT GIVENUNK [place] Insurance:SELF PAY [facility] Number: Effective Repository Date:2018-06-10 06/09/2018 YADI S Primary YADI S [place] [id number] Insurance:SUMMA CARE KARVONENDOB: Community [place] MEDICARE[place] [id number], [place] Number: Repository [address]Owb: 330 [id number] [phone] () Date:1417-86-78SR [address] [place] [address]HQ: 06/09/2018 Secondary NOT GIVENUNK [place] Insurance:SELF PAY [facility] Number: Effective Repository Date:2018-06-09 06/08/2018 YADI S Primary YADI S [place] [id number] Insurance:SUMMA CARE KARVONENDOB: Community [place] MEDICARE[place] [id number], [place] Number: Repository [address]Wir: 330 [id number] [phone] () Date:4577-43-83TS [address] [place] [address] 870[address]TA: 06/08/2018 Secondary NOT GIVENUNK [place] Insurance:SELF PAY [facility] Number: Effective Repository Date:2018-06-08 06/08/2018 YADI S Primary YADI S [place] [id number] Insurance:SUMMA CARE KARVONENDOB: Community [place] MEDICARE[place] [id number], [place] Number: Repository [address]Vvk: (330 [id number] [phone] () Date:8337-87-02PM [address] [place] [address] 740[address]DG: 06/08/2018 Secondary NOT GIVENUNK [place] Insurance:SELF PAY [facility] Number: Effective Repository Date:2018-06-08 06/08/2018 YADI S Primary YADI S [place] [id number] Insurance:SUMMA CARE KARVONENDOB: Community [place] MEDICAREPolicy [id number], [place] Number: Repository [address]Vbk: (330 [id number] [phone] (HP) Date:5971-47-10TE [address] [place] [address] 726[address]FW: 06/08/2018 Secondary NOT GIVENUNK [place] Insurance:SELF PAY [facility]: Effective Repository Date:2018-06-08 06/08/2018 YADI S Primary YADI S [place] [id number] Insurance:SUMMA CARE KARVONENDOB: Community [place] MEDICAREPolic [id number], [place] Number: Repository [address]Ejq: (330) [id number] [phone] (HP) Date:5152-50-32YE [address] [place] [address] 616[address]ZP: 06/08/2018 Secondary NOT GIVENUNK [place] Insurance:SELF PAY [facility] Number: Effective Repository Date:2018-06-08 06/08/2018 YADI S Primary YADI S [place] [id number] Insurance:SUMMA CARE KARVONENDOB: Community [place] MEDICARE[place] [id number], [place] Number: Repository [address]Cao: (330) [id number] [phone] () Date:4433-97-70KF [address] [address]VV: 06/08/2018 Secondary NOT GIVENUNK [place] Insurance:SELF PAY [facility] Number: Effective Repository Date:2018-06-08 06/08/2018 YADI S Primary YADI S [place] [id number] Insurance:SUMMA CARE KARVONENDOB: Community [place] MEDICAREPolicy [id number], [place] Number: Repository [address]Bac: (330) [id number] [phone] (HP) Date:9614-42-64ZH [address] [address]ZG: 06/08/2018 Secondary NOT GIVENUNK [place] Insurance:SELF PAY [facility] Number: Effective Repository Date:2018-04-15 05/27/2018 YADI S Primary YADI S [place] [id number] Insurance:SUMMA CARE KARVONENDOB: Community [place] MEDICAREPolicy [id number], [place] Number: Repository [address]Dfh: (330) [id number] [phone] (HP) Date:2638-74-94WI [address] [place] [address] 357[address]HS: 05/27/2018 Secondary NOT GIVENUNK [place] Insurance:SELF PAY [facility] Number: Effective Repository Date:2018-05-27 04/19/2018 YADI S Primary YADI S [place] [id number] Insurance:SUMMA CARE KARVONENDOB: Community [place] MEDICAREPolicy [id number], [place] Number: Repository [address]Sbr: (330) [id number] [phone] (HP) Date:4152-43-85BM [address] [place] [address] 415[address]VS: 04/19/2018 Secondary NOT GIVENUNK [place] Insurance:SELF PAY [facility] Number: Effective Repository Date:2018-04-19 04/14/2018 YADI S Primary YADI S [place] [id number] Insurance:SUMMA CARE KARVONENDOB: Community [place] MEDICAREPolicy [id number], [place] Number: Repository [address]Lnp: (330 [id number] [phone] (HP) Date:6984-72-37XS [address] [place] [address] 49[address]SJ: 04/14/2018 Secondary NOT GIVENUNK [place] Insurance:SELF PAY [facility] Number: Effective Repository Date:2018-04-14 04/08/2018 YADI S Primary YADI S [place] [id number] Insurance:SUMMA CARE KARVONENDOB: Community [place] MEDICAREPolicy [id number], [place] Number: Repository 94[address]Gaf: (330 [id number] [phone] (HP) Date:3670-08-84IK [address] [facility], [place] [address]RS: 04/08/2018 Secondary NOT GIVENUNK [place] Insurance:SELF PAY [facility] Number: Effective Repository Date:2018-04-05 12/22/2017 Yadi S Primary Yadi S [place] [id number] Insurance:SUMMA CARE KarvonenDOB: Community [place] MEDICAREPolicy [id number], [place] Number: Repository [address]Ttr: (330 [id number] [phone] () Date:7920-91-50FI [address] [place] [address] 714[address]BI: 12/22/2017 Secondary NOT GIVENUNK [place] Insurance:SELF PAY [facility] Number: Effective Repository Date:2017-12-22 09/23/2017 Ydai S Primary Yadi S [place] [id number] Insurance:SUMMA CARE KarvonenDOB: Community [place] MEDICAREPolicy [id number][place] Number: Repository [address]Rts: 330 [id number] [phone] () Date:4299-09-58MV [address] [address]LS: 09/23/2017 Secondary NOT GIVENUNK [place] Insurance:SELF PAY [facility] Number: Effective Repository Date:2017-09-23 09/16/2017 Yadi S Primary Yadi S [place] [id number] Insurance:SUMMA CARE KarvonenDOB: Community [place] MEDICAREPolicy [id number], [place] Number: Repository [address]Tem: 330 [id number] [phone] (HP) Date:6711-98-91EH [address] [place] [address] 87074TY: 09/16/2017 Secondary NOT GIVENUNK [place] Insurance:SELF PAY [facility] Number: Effective Repository Date:2017-09-16 09/08/2017 Yadi S Primary Yadi S [place] [id number] Insurance:SUMMA CARE KarvonenDOB: Community [place] MEDICAREPolicy [id number], [place] Number: Repository [address]Arq: (330) [id number] [phone] (HP) Date:7957-72-48HV [address] [facility], [place] [address]DP: 09/08/2017 Secondary NOT GIVENUNK [place] Insurance:SELF PAY [facility] Number: Effective Repository Date:2017-08-16 09/03/2017 Yadi S Primary Yadi S [place] [id number] Insurance:SUMMA CARE KarvonenDOB: Community [place] MEDICAREPolicy [id number], [place] Number: Repository [address]Eor: (330) [id number] [phone] (HP) Date:7664-34-15CW [address] [place] [address] 16784OZ: 09/03/2017 Secondary NOT GIVENUNK [place] Insurance:SELF PAY [facility] Number: Effective Repository Date:2017-08-25 09/01/2017 Yadi S Primary Yadi S [place] [id number] Insurance:SUMMA CARE KarvonenDOB: Community [place] MEDICAREPolicy [id number] Number: Repository [address]Giv: (330 [id number] [phone] (HP) Date:6809-39-69KC [address] [place] [address] 35542OZ: 09/01/2017 Secondary NOT GIVENUNK [place] Insurance:SELF PAY [facility] Number: Effective Repository Date:2017-09-01 08/25/2017 Yadi S Primary Yadi S [place] [id number] Insurance:SUMMA CARE KarvonenDOB: Community [place] MEDICAREPolicy [id number][place] Number: Repository [address]Daz: (330 [id number] [phone] (HP) Date:2070-53-92NP [address] [place] [address] 825[address]AK: 08/25/2017 Secondary NOT GIVENUNK [place] Insurance:SELF PAY [facility] Number: Effective Repository Date:2017-08-25 08/18/2017 Yadi Hogan Primary [place] [id number] Insurance:[facility] TrinanDOB: Community [place] MEDICAREPolicy [id number], [place] Number: Repository [address]Llc: (183) [id number] [phone] () Date:2878-28-95XI [address] [place] [address] 44998KK: 08/18/2017 Secondary NOT GIVENUNK [place] Insurance:SELF PAY [facility] Number: Effective Repository Date:2017-06-23
== END 2018-06-22 09:21 | disposition home or self-care (01) ==
LOC: SDC 05:55 → AC 05:55
PROVIDERS: Family Provider Family Medicine Geriatric Medicine; PCP Family Medicine Geriatric Medicine; Referring Provider Urology; Visit Provider Urology
PROC: (CPT 64585; principal; 2018-06-22 07:15)
DX: N32.81 Overactive bladder (principal); N39.41 Urge incontinence; I67.89 Other cerebrovascular disease; I15.9 Secondary hypertension, unspecified; E11.9 Type 2 diabetes mellitus without complications; K21.9 Gastro-esophageal reflux disease without esophagitis; F32.9 Major depressive disorder, single episode, unspecified; E78.5 Hyperlipidemia, unspecified; G20 Parkinson's disease; Z79.01 Long term (current) use of anticoagulants; Z87.440 Personal history of urinary (tract) infections; Z79.82 Long term (current) use of aspirin; Z79.84 Long term (current) use of oral hypoglycemic drugs; Z79.899 Other long term (current) drug therapy; Z87.891 Personal history of nicotine dependence
CPT/HCPCS: 64585; 82962; J7120

== ENCOUNTER → 2018-06-29 11:04 | Outpatient (CLI) | payer MEDICARE, SELFPAY ==
[2018-06-22 06:44] VITALS: BMI 37.0
[2018-06-29 12:13] LABS: BNP,B-Type NATRIURETIC PEPTIDE 21.6 pg/mL (0-100)
--- OUTSIDE RECORDS SUMMARY | 2018-09-30 15:16 | XMS RPT_ITS ---
:1945 Author Organization [place] Support Name Relationship Address Phone SAMIR DARON Unavailable [address] + [place] [address] ANGELASELVIN SIMONS Unavailable Unavailable + [place] [address] R Unavailable Unavailable Unavailable SAMIR, DARON Unavailable [address] + [place] [address] ANGELA, SELVIN Unavailable Unavailable + [place] [address] R Unavailable Unavailable Unavailable SAMIR, DARON Unavailable [address] + [place] [address] ANGELA, SELVIN Unavailable Unavailable + [place] [address] R Unavailable Unavailable Unavailable SAMIR, DARON Unavailable [address] + [place] [address] ANGELA, SELVIN Unavailable Unavailable + [place] [address] R Unavailable Unavailable Unavailable SAMIR, DARON Unavailable [address] + [place] [address] ANGELA, SELVIN Unavailable Unavailable + [place] [address] R Unavailable Unavailable Unavailable SAMIR, DARON Unavailable [address] + [place] [address] ANGELA, SELVIN Unavailable Unavailable + [place] [address] R Unavailable Unavailable Unavailable SAMIR, DARON Unavailable [address] + [place] [address] ANGELA, SELVIN Unavailable Unavailable + [place] [address] R Unavailable Unavailable Unavailable SAMIR, DARON Unavailable [address] + [place] [address] ANGELA, SELVIN Unavailable Unavailable + [place] [address] R Unavailable Unavailable Unavailable SAMIR, DARON Unavailable [address] + [place] [address] ANGELA, SELVIN Unavailable Unavailable + [place] [address] R Unavailable Unavailable Unavailable SAMIR, DARON Unavailable [address] + [place] [address] ANGELA, SELVIN Unavailable Unavailable + [place] [address] R Unavailable Unavailable Unavailable SAMIR, DARON Unavailable [address] + [place] [address] ANGELA, SELVIN Unavailable Unavailable + [place] [address] R Unavailable Unavailable Unavailable SAMIR, DARON Unavailable [address] + [place] [address] ANGELA, SELVIN Unavailable Unavailable + [place] [address] R Unavailable Unavailable Unavailable SAMIR, DARON Unavailable [address] + [place] [address] ANGELA, SELVIN Unavailable Unavailable + [place] [address] R Unavailable Unavailable Unavailable SAMIR, DARON Unavailable [address] + [place] [address] ANGELA, SELVIN Unavailable Unavailable + [place] [address] R Unavailable Unavailable Unavailable SAMIR, DARON Unavailable [address] + [place] [address] ANGELA, SELVIN Unavailable Unavailable + [place] [address] R Unavailable Unavailable Unavailable SAMIR, DARON Unavailable [address] + [place] [address] ANGELA, SELVIN Unavailable Unavailable + [place] [address] R Unavailable Unavailable Unavailable SAMIR, DARON Unavailable [address] + [place] [address] ANGELA, SELVIN Unavailable Unavailable + [place] [address] R Unavailable Unavailable Unavailable SAMIR, DARON Unavailable [address] + [place] [address] ANGELA, SELVIN Unavailable Unavailable + [place] [address] R Unavailable Unavailable Unavailable SAMIR, DARON Unavailable [address] + [place] [address] ANGELA, SELVIN Unavailable Unavailable + [place] [address] R Unavailable Unavailable Unavailable SAMIR, DARON Unavailable [address] + [place] [address] ANGELA, SELVIN Unavailable Unavailable + [place] [address] R Unavailable Unavailable Unavailable SAMIR, DARON Unavailable [address] + [place] [address] ANGELA, SELVIN Unavailable Unavailable + [place] [address] R Unavailable Unavailable Unavailable SAMIR, DARON Unavailable [address] + [place] [address] ANGELA, SELVIN Unavailable Unavailable + [place] [address] R Unavailable Unavailable Unavailable SAMIR, DARON Unavailable [address] [phone] [place] [address] ANGELA, SELVIN Unavailable Unavailable + [place] [address] R Unavailable Unavailable Unavailable SAMIR, DARON Unavailable [address] [phone] [place] [address] ANGELA, SELVIN Unavailable Unavailable + [place] [address] R Unavailable Unavailable Unavailable SAMIR, DARON Unavailable [address] [phone] [place] [address] ANGELA, SELVIN Unavailable Unavailable + R Unavailable Unavailable Unavailable SAMIR, DARON Unavailable [address] [phone] [place] [address] ANGELA, SELVIN Unavailable Unavailable + R Unavailable [...] [facility] Unavailable Becky Burrows SENIOR TEST ENGINEER-C Attending Unavailable Becky Burrows SENIOR TEST ENGINEER-C Referring Unavailable Chaz, Bakari Chi Primary Care Unavailable Chaz, Bakari Chi Attending Unavailable Chaz, Bakari Chi Referring Unavailable Chaz, Bakari Chi Primary Care Unavailable Chaz, Bakari Chi Attending Unavailable Cahz, Bakari Chi Referring Unavailable Chaz, Bakari Chi [...] Chi Primary Care Unavailable DarylConnor Attending Unavailable Cahz, Bakari Chi Primary Care Unavailable DarylConnor Attending [...] 07/01/2018 Unknown R94.31 - Abnormal [place], Active [place] electrocardiogram [facility] [ECG] [EKG] / Hospital R94.31(ICD-10) Repository 07/01/2018 Unknown I45.10 - Unspecified [place], Active [place] right bundle-branch [facility] block / I45.10(ICD-10) Hospital Repository 07/01/2018 Unknown R47.81 - Slurred [place], Active [place] speech / [facility] R47.81(ICD-10) Hospital Repository 05/27/2018 Unknown N39.0 - Urinary tract Daryl, Connor Active [place] infection, site not [facility] specified / Hospital N39.0(ICD-10) Repository 04/14/2018 Unknown E11.9 - Type 2 Chaz, Bakari Chi Active [place] diabetes mellitus Community without complications Hospital / E11.9(ICD-10) Repository 04/14/2018 Unknown E55.9 - Vitamin D Chaz, Bakari Chi Active [place] deficiency, Community unspecified / Hospital E55.9(ICD-10) Repository 04/14/2018 Unknown M25.579 - Pain in Chaz, Bakari Chi Active [place] unspecified ankle and Community joints of unspecified Hospital foot / M25.579(ICD-10) Repository 04/14/2018 Unknown M79.609 - Pain in Chaz, Bakari Chi Active [place] unspecified limb / Community M79.609(ICD-10) Hospital Repository 09/16/2017 Unknown E87.6 - Hypokalemia / Chaz, Bakari Chi Active [place] E87.6(ICD-10) [facility] Repository 08/18/2017 Unknown R20.0 - Anesthesia of Becky Burrows Active [place] skin / R20.0(ICD-10) SENIOR TEST ENGINEER-C [facility] Repository 08/18/2017 Unknown R25.2 - Cramp and Becky Burrows Active [place] spasm / R25.2(ICD-10) SENIOR TEST ENGINEER-C [facility] Repository 08/18/2017 Unknown Z86.73 - Personal Becky Burrows Active [place] history of transient SENIOR TEST ENGINEER-C Community ischemic attack (TIA), Hospital and cerebral Repository infarction without residual deficits / Z86.73(ICD-10) PROCEDURES PROCEDURES No Procedure Records FoundRESULTS RESULTS CBC W/DIFF, AUTOMATED Collected: 08/04/2018 Status: F Source: [place] 1:49 PM [facility] REPOSITORY TYPE CODE TESTS RESULT OUT OF RANGE REFERENCE UNITS LAB L100.1000 4.4-11.0 K/mm3 Normal WBC 7.5 LAB L100.1200 4.2-5.4 M/mm3 Normal RBC 4.50 LAB L100.1300 12.0-15.0 g/dl Normal HGB 13.5 LAB L100.1400 37-47 % Normal HCT 41.7 LAB L100.1500 81-99 fL Normal MCV 92.7 LAB L100.1600 27.0-32.0 pg Normal MCH 30.0 LAB L100.1700 32-36 g/gl Normal MCHC 32.4 LAB L100.1810 11.6-14.6 % Normal RDW CV 13.3 LAB L100.1820 35.1-43.9 fl High RDW SD 44.8 LAB L100.1900 150-450 K/mm3 Normal PLT 200 LAB L100.2000 6.2-12.0 fl Normal MPV 10.9 LAB L100.2100 47-70 % Normal NEUT% 61.8 LAB L100.2200 19-41 % Normal LY% 29.0 LAB L100.2300 0-10 % Normal MONO% 6.2 LAB L100.2400 0-5 % Normal EO% 2.4 LAB L100.2500 0-1 % Normal BASO% 0.3 LAB L100.2550 0.0-0.9 % Normal IM GRAN % 0.300 Result Comment: IG% - Immature Granulocytes (promyelocytes, myelocytes and metamyelocytes) > 1% indicates that a LEFT SHIFT is Present. LAB L100.2620 2.0-7.7 X10 3/uL Normal Absolute Neut 4.6 LAB L100.2720 0.83-4.51 X10 3/ul Normal Absolute Lymph 2.16 Performed By: #### L100.0100 #### [facility] [address] [place], [address] COMPREHENSIVE METABOLIC Collected: 08/04/2018 Status: F Source: [place] HER 1:49 PM [facility] REPOSITORY TYPE CODE TESTS RESULT OUT OF RANGE REFERENCE UNITS LAB L501.0100 74-106 mg/dL High GLU 147 Result Comment: Fasting Glucose result greater than or equal to 126 mg/dL suggests DIABETES MELLITUS per A.D.A. criteria. Please note revised GLUCOSE reference range effective 2017. LAB L501.1000 7-18 mg/dL High BUN 29 LAB L501.1100 0.55-1.02 mg/dL Normal CREAT,SERUM 0.81 Result Comment: The validity of the calculated GFR AND GFRAA in patients over 70 years has not been determined. Clinical correlation is essential. LAB L501.1110 >60 mL/min Normal EST GFR 73 Result Comment: Non- GFR Calc LAB L501.1115 >60 mL/min Normal EST GFR - AA 89 Result Comment: GFR Calc LAB L501.1300 10-20 RATIO High BUN/CRE 35.7 LAB L501.1500 6.4-8.2 g/dL T Normal PROT 7.3 LAB L501.1800 3.2-5.0 g/dL Normal ALB 3.4 LAB L501.1950 2.2-4.2 g/dL Normal GLOB 3.9 LAB L501.2000 0.9-2.4 RATIO Normal A/G 0.9 LAB L501.2200 8.5-10.1 mg/dL CA Normal 9.1 LAB L501.4100 15-37 U/L Normal AST 19 LAB L501.4305 45-117 U/L Normal ALK P 52 LAB L501.4405 13-56 U/L Normal ALT 30 LAB L501.4600 0.20-1.00 mg/dL T Normal BILI 0.40 LAB L501.5300 136-145 mmol/L NA Normal 144 LAB L501.5600 3.5-5.1 mmol/L K Normal 4.3 LAB L501.5900 98-107 mmol/L High CL 108 LAB L501.6100 21.0-32.0 mmol/L Normal CO2 27.0 LAB L501.6200 5-15 Normal GAP 9 Performed By: #### L500.4050, L501.9520 #### [facility] [address] [place], [address] THYROID STIM HORMONE Collected: 08/04/2018 Status: F Source: [place] (TSH) 1:49 PM [facility] REPOSITORY TYPE CODE TESTS RESULT OUT OF RANGE REFERENCE UNITS LAB L501.9520 0.358-3.74 uIU/mL Normal TSH 0.83 Performed By: #### L500.4050, L501.9520 #### [facility] [address] [place], [address] NCS AND/OR EMG Observed: 07/13/2018 Status: F Source: [place] PATIENT 2:24 PM [facility] REPOSITORY [facility] Pulmonary Services/Neurology [address] [place] [address] MR#: [id number] Acct: [id number] Name: YADI LARSEN Rep #: [id number] : 1945 72 From: Kaitlin Alfaro MD Referring Dr: Chaz BERG,Bakari Correa Status: REG CLI Ordering Dr: Date: Location: [facility] Sex: F C NCS and/or EMG [...] do not hesitate to contact me. 07/13/18 1424 <Electronically signed by Kaitlin Alfaro MD> Date Kaitlin Alfaro MD CC: Kaitlin Alfaro MD; Bakari Ware MD Date Dictated: 07/13/181404 Date Transcribed: 07/13/181404 Diving Fisher: LUZ MARIA Signed VITAMIN D,25 HYDROXY Collected: 07/07/2018 Status: F Source: [place] 3:51 PM [facility] REPOSITORY TYPE CODE TESTS RESULT OUT OF REFERENCE UNITS RANGE LAB L506.1000 29.95-100.01 ng/mL Low Vitamin D 29.3 25-OH Result Comment: Vitamin D 25(OH) Status Range Deficiency <20 ng/mL (50nmol/L) Insuffciency 20 - 30 ng/mL (50 - 75 nmol/L) Sufficiency 30 - 100 ng/mL (75 - 250 nmol/L) Toxicity >100 ng/mL (>250 nmol/L) Performed By: #### L506.1000 #### [facility] [place] [address] [place], [address] CBC W/DIFF, AUTOMATED Collected: 07/07/2018 Status: F Source: [place] 3:51 PM [facility] REPOSITORY TYPE CODE TESTS RESULT OUT OF [...] Lymph 2.21 Performed By: #### L100.0100 #### [facility] [address] [place], [address] COMPREHENSIVE METABOLIC Collected: 07/07/2018 Status: F Source: [facility] 3:51 PM [facility] REPOSITORY TYPE CODE TESTS RESULT OUT OF [...] 8 Performed By: #### L500.4050, L501.9520 #### [facility] [address] [place], [place], [address] THYROID STIM HORMONE Collected: 07/07/2018 Status: F Source: [place] (TSH) 3:51 PM [facility] REPOSITORY TYPE CODE TESTS RESULT OUT OF RANGE REFERENCE UNITS LAB L501.9520 0.358-3.74 uIU/mL Normal TSH 0.59 Performed By: #### L500.4050, L501.9520 #### [facility] [address] [place], [address] Observed: 06/29/2018 Status: F Source: [place] CULTURE, URINE 11:10 AM [facility] REPOSITORY Urine Culture ORGANISM 1: Presumptive E. coli [place] Count >100,000 Presumptive E. coli: REACTION Amoxacillin/Clavulanic [...] <=20 S (NF) indicates non-formulary drug at [facility]. Approval by Infectious Disease Specialist required before non-formulary drugs may be ordered and/or dispensed. Performed By: #### M100.0650 #### [facility] [address] [place], [address] BNP,B-TYPE NATRIURETIC Collected: 06/29/2018 Status: F Source: [place] PEPTIDE 11:06 AM [facility] REPOSITORY TYPE CODE TESTS RESULT OUT OF RANGE REFERENCE UNITS LAB L503.6620 0-100 pg/mL Normal B-TYPE 21.6 JEANNE PEP Performed By: #### L503.6620 #### [facility] [address] [place], [address] HISTORY AND PHYSICAL Observed: 06/28/2018 Status: F Source: [place] EXAM 1:04 PM [facility] REPOSITORY [facility] Medical Records Department [address] [place] [address] History and Physical 06/11/182023 MR#: [id number] Acct: [id number] Name: YADI LARSEN Rep #: [id number] : 1945 72 From: Abida Collins MD PCP: Chaz BERG,Bakari Correa Status: DIS IN Y Location: [place] [address] Problem List (1) CVA (cerebral infarction) Status: [...] symptoms but does not take any medications BANK EXAMINER History: No pertinent BANK EXAMINER history Lives: With Family Smoking Status: Former [...] depression admitted to [facility] IP RU with debility s/p TIA [...] recommendations Code Visit Inpatient E AND M: 42315 Init Hosp L3 06/28/18 1304 <Electronically signed by Abida Collins MD> Date Abida Collins MD Cosigner Signature: Date (if applicable) CC: Dexter Collins MD; Bakari Ware MD Signed OPERATIVE REPORT Observed: 06/22/2018 Status: F Source: [place] 7:45 AM [facility] REPOSITORY [facility] Medical Records Department [address] [place] [address] [place] [address] Operative Report 06/22/18 0742 MR#: [id number] Acct: [id number] Name: YADI LARSEN Rep #: [id number] : 1945 72 From: Connor Brito MD PCP: Chaz BERG,Bakari Correa Status: REG [facility] Y Location: [place] [address] Report of Operation Date of Procedure: 06/22/18 [...] DISCHARGE INSTRUCTION Observed: 06/22/2018 Status: F Source: [place] 7:21 AM [facility] REPOSITORY [facility] Medical Records Department [address] [place] [address] Instructions for Home/Discharge Instructions 06/22/18 0720 MR#: [id number] Acct: [id number] Name: YADI LARSEN Rep #: [id number] : 1945 72 From: Connor Brito MD PCP: Bakari Ware MD, Chi Status: REG SDC Discharge Diet: Light diet [...] appointment, if applicable. Please Follow Up With: Cnonor Brito MD When: in 6 weeks, please call to make an appointment. 06/22/18 0721 <Electronically signed by Connor Brito MD> Date Connor Brito MD CC: Bakari Ware MD BEDSIDE GLUCOSE Collected: 06/22/2018 Status: F Source: [place] 6:40 AM [facility] REPOSITORY TYPE CODE TESTS RESULT OUT OF REFERENCE UNITS RANGE LAB L501.080 70-110 mg/dL High BEDSIDE GLU 211 Result Comment: MANAGEMENT OF PATIENT CARE PER NURSING PROTOCOL Performed By: #### L501.080 #### [facility] Point of Care [address] [place] [address] BEDSIDE GLUCOSE Collected: 06/21/2018 Status: F Source: [place] 11:37 AM [facility] REPOSITORY TYPE CODE TESTS RESULT OUT OF REFERENCE UNITS RANGE LAB L501.080 70-110 mg/dL High BEDSIDE GLU 233 Result Comment: MANAGEMENT OF PATIENT CARE PER NURSING PROTOCOL Performed By: #### L501.080 #### [facility] Point of Care [address] [place] [address] DISCHARGE INSTRUCTION Observed: 06/21/2018 Status: F Source: [place] 11:35 AM [facility] Medical Records Department [address] [place] [address] Instructions for Home/Discharge Instructions 06/21/18 1007 MR#: [id number] Acct: [id number] Name: YADI LARSEN Rep #: [id number] : 1945 72 From: Becky Burrows SENIOR TEST ENGINEER-C PCP: Chaz BERG,Bakari Correa Status: ADM IN - Discharge Diagnoses Reason(s) [...] DISCHARGE SUMMARY Observed: 06/21/2018 Status: F Source: [place] 11:34 AM [facility] REPOSITORY [facility] Medical Records Department [address] [place] [address] Discharge Summary 06/21/18 0848 MR#: [id number] Acct: [id number] Name: YADI LARSEN Rep #: [id number] : 1945 72 From: Becky HALE PCP: Chaz BERG,Bakari Correa Status: ADM IN Y Location: [place] [address] Rehab Discharge Summary DATE OF ADMISSION: 06/10/18 [...] (Norvasc) 10 mg PO DAILY [facility] Last Admin: 06/21/18 08:36 Dose: 10 mg Aspirin (Aspirin, Baby) 81 mg PO DAILY@0800 [facility] Last Admin: 06/21/18 08:36 Dose: 81 mg Atorvastatin Calcium (Lipitor) 40 mg PO QHS [facility] Last Admin: 06/20/18 20:43 Dose: 40 mg Baclofen (Lioresal) 20 mg PO TID [facility] Last Admin: 06/21/18 05:40 Dose: 20 mg Bisacodyl (Dulcolax) 10 mg RECTAL .PRN X 1 PRN PRN Reason: Constipation Clopidogrel Bisulfate (Plavix) 75 mg PO DAILY [facility] Last Admin: 06/21/18 08:36 Dose: 75 mg Enoxaparin Sodium (Lovenox) 40 mg SC DAILY@0600 [facility] Last Admin: 06/21/18 08:44 Dose: Not Given Escitalopram Oxalate (Lexapro) 20 mg PO QHS [facility] Last Admin: 06/20/18 20:42 Dose: 20 mg Gabapentin (Neurontin) 200 mg PO TIDCM [facility] Last Admin: 06/21/18 08:36 Dose: 200 mg Galantamine Hydrobromide (Razadyne) 12 mg PO BID [facility] Last Admin: 06/21/18 08:35 Dose: 12 mg Glimepiride (Amaryl) 2 mg PO DAILY@0800 [facility] Last Admin: 06/21/18 08:36 Dose: 2 mg Insulin Human Lispro (Humalog Kwikpen (Bkc)) 0 unit SC [facility]; Protocol Last Admin: 06/21/18 08:36 Dose: 1 u Lisinopril (Zestril) 20 mg PO DAILY [facility] Last Admin: 06/21/18 08:36 Dose: 20 mg Magnesium Hydroxide (Milk Of Magnesia) 30 ml PO .PRN X 1 PRN PRN Reason: Constipation Melatonin (Melatonin) 3 mg PO QHS [facility] Last Admin: 06/20/18 20:44 Dose: 3 mg Memantine (Namenda) 10 mg PO BID [facility] Last Admin: 06/21/18 08:36 Dose: 10 mg Polyethylene Glycol (Miralax) 17 gm PO BID [facility] Last Admin: 06/21/18 05:39 Dose: Not Given Senna/Docusate Sodium (Senokot-S, Courtney-Colace) 2 tablet PO BID [facility] Last Admin: 06/21/18 05:40 Dose: Not [...] IV t-PA not ordered: Medical Contraindication 06/21/18 1132 <Electronically signed by Becky Burrows SENIOR TEST ENGINEER-C> Date Becky Burrows SENIOR TEST ENGINEER-C 06/21/18 1025<Electronically signed by Musa Llamas MD> [place] Signature (if applicable): Date Musa Llamas MD CC: SENIOR TEST ENGINEER Becky Burrows; Musa Llamas MD; Bakari Ware MD Signed BEDSIDE GLUCOSE Collected: 06/21/2018 Status: F Source: [place] 6:27 AM [facility] REPOSITORY TYPE CODE TESTS RESULT OUT OF REFERENCE UNITS RANGE LAB L501.080 70-110 mg/dL High BEDSIDE GLU 155 Result Comment: MANAGEMENT OF PATIENT CARE PER NURSING PROTOCOL Performed By: #### L501.080 #### [facility] Point of Care [address] [place] [address] BEDSIDE GLUCOSE Collected: 06/20/2018 Status: F Source: [place] 9:20 PM [facility] REPOSITORY TYPE CODE TESTS RESULT OUT OF REFERENCE UNITS RANGE LAB L501.080 70-110 mg/dL High BEDSIDE GLU 263 Result Comment: MANAGEMENT OF PATIENT CARE PER NURSING PROTOCOL Performed By: #### L501.080 #### [facility] Point of Care [address] [place] [address] BEDSIDE GLUCOSE Collected: 06/20/2018 Status: F Source: [place] 4:46 PM [facility] REPOSITORY TYPE CODE TESTS RESULT OUT OF REFERENCE UNITS RANGE LAB L501.080 70-110 mg/dL High BEDSIDE GLU 192 Result Comment: MANAGEMENT OF PATIENT CARE PER NURSING PROTOCOL Performed By: #### L501.080 #### [facility] Point of Care [address] [place] [address] BEDSIDE GLUCOSE Collected: 06/20/2018 Status: F Source: [place] 11:33 AM [facility] REPOSITORY TYPE CODE TESTS RESULT OUT OF REFERENCE UNITS RANGE LAB L501.080 70-110 mg/dL High BEDSIDE GLU 270 Result Comment: MANAGEMENT OF PATIENT CARE PER NURSING PROTOCOL Performed By: #### L501.080 #### [facility] Point of Care [address] [place] [address] BEDSIDE GLUCOSE Collected: 06/20/2018 Status: F Source: [place] 6:40 AM [facility] REPOSITORY TYPE CODE TESTS RESULT OUT OF REFERENCE UNITS RANGE LAB L501.080 70-110 mg/dL High BEDSIDE GLU 183 Result Comment: MANAGEMENT OF PATIENT CARE PER NURSING PROTOCOL Performed By: #### L501.080 #### [facility] Point of Care [address] [place] [address] BEDSIDE GLUCOSE Collected: 06/19/2018 Status: F Source: [place] 10:46 PM [facility] REPOSITORY TYPE CODE TESTS RESULT OUT OF REFERENCE UNITS RANGE LAB L501.080 70-110 mg/dL High BEDSIDE GLU 300 Result Comment: MANAGEMENT OF PATIENT CARE PER NURSING PROTOCOL Performed By: #### L501.080 #### [facility] Point of Care [address] [place] [address] BEDSIDE GLUCOSE Collected: 06/19/2018 Status: F Source: [place] 4:24 PM [facility] REPOSITORY TYPE CODE TESTS RESULT OUT OF REFERENCE UNITS RANGE LAB L501.080 70-110 mg/dL High BEDSIDE GLU 266 Result Comment: MANAGEMENT OF PATIENT CARE PER NURSING PROTOCOL Performed By: #### L501.080 #### [facility] Point of Care [address] [place] [address] BEDSIDE GLUCOSE Collected: 06/19/2018 Status: F Source: [place] 11:04 AM [facility] REPOSITORY TYPE CODE TESTS RESULT OUT OF REFERENCE UNITS RANGE LAB L501.080 70-110 mg/dL High BEDSIDE GLU 300 Result Comment: MANAGEMENT OF PATIENT CARE PER NURSING PROTOCOL Performed By: #### L501.080 #### [facility] Point of Care [address] [place] [address] BEDSIDE GLUCOSE Collected: 06/19/2018 Status: F Source: [place] 6:39 AM [facility] REPOSITORY TYPE CODE TESTS RESULT OUT OF REFERENCE UNITS RANGE LAB L501.080 70-110 mg/dL High BEDSIDE GLU 205 Result Comment: MANAGEMENT OF PATIENT CARE PER NURSING PROTOCOL Performed By: #### L501.080 #### [facility] Point of Care [address] [place] [address] BEDSIDE GLUCOSE Collected: 06/18/2018 Status: F Source: [place] 8:53 PM [facility] REPOSITORY TYPE CODE TESTS RESULT OUT OF REFERENCE UNITS RANGE LAB L501.080 70-110 mg/dL High BEDSIDE GLU 209 Result Comment: MANAGEMENT OF PATIENT CARE PER NURSING PROTOCOL Performed By: #### L501.080 #### [facility] Point of Care [address] [place] [address] BEDSIDE GLUCOSE Collected: 06/18/2018 Status: F Source: [place] 4:08 PM [facility] REPOSITORY TYPE CODE TESTS RESULT OUT OF REFERENCE UNITS RANGE LAB L501.080 70-110 mg/dL High BEDSIDE GLU 247 Result Comment: MANAGEMENT OF PATIENT CARE PER NURSING PROTOCOL Performed By: #### L501.080 #### [facility] Point of Care [address] [place] [address] BEDSIDE GLUCOSE Collected: 06/18/2018 Status: F Source: [place] 11:01 AM [facility] REPOSITORY TYPE CODE TESTS RESULT OUT OF REFERENCE UNITS RANGE LAB L501.080 70-110 mg/dL High BEDSIDE GLU 317 Result Comment: MANAGEMENT OF PATIENT CARE PER NURSING PROTOCOL Performed By: #### L501.080 #### [facility] Point of Care [address] [place] [address] BEDSIDE GLUCOSE Collected: 06/18/2018 Status: F Source: [place] 6:52 AM [facility] REPOSITORY TYPE CODE TESTS RESULT OUT OF REFERENCE UNITS RANGE LAB L501.080 70-110 mg/dL High BEDSIDE GLU 200 Result Comment: MANAGEMENT OF PATIENT CARE PER NURSING PROTOCOL Performed By: #### L501.080 #### [facility] Point of Care [address] [place] [address] BEDSIDE GLUCOSE Collected: 06/17/2018 Status: F Source: [place] 9:05 PM [facility] REPOSITORY TYPE CODE TESTS RESULT OUT OF REFERENCE UNITS RANGE LAB L501.080 70-110 mg/dL High BEDSIDE GLU 274 Result Comment: MANAGEMENT OF PATIENT CARE PER NURSING PROTOCOL Performed By: #### L501.080 #### [facility] Point of Care [address] [place] [address] BEDSIDE GLUCOSE Collected: 06/17/2018 Status: F Source: [place] 4:34 PM [facility] REPOSITORY TYPE CODE TESTS RESULT OUT OF REFERENCE UNITS RANGE LAB L501.080 70-110 mg/dL High BEDSIDE GLU 229 Result Comment: MANAGEMENT OF PATIENT CARE PER NURSING PROTOCOL Performed By: #### L501.080 #### [facility] Point of Care [address] [place] [address] BEDSIDE GLUCOSE Collected: 06/17/2018 Status: F Source: [place] 11:32 AM [facility] REPOSITORY TYPE CODE TESTS RESULT OUT OF REFERENCE UNITS RANGE LAB L501.080 70-110 mg/dL High BEDSIDE GLU 230 Result Comment: MANAGEMENT OF PATIENT CARE PER NURSING PROTOCOL Performed By: #### L501.080 #### [facility] Point of Care [address] [place] [address] VENOUS DUPLEX UPPER Observed: 06/17/2018 Status: F Source: [place] EXTREMITY 7:30 AM [facility] REPOSITORY [facility] Cardiovascular Services [address] [place] [address] Venous Duplex US - Dean Extrem 06/13/18 1408 MR#: [id number] Acct: [id number] Name: YADI LARSEN Rep #: [id number] : 1945 72 From: Luiz Simon MD [...] Performed By: Lorrie Orellana, DAVID, RVT ? 06/17/1829 Date Luiz Simon MD CC: Dexter Collins MD; Jaydon Olivas DO; Bakari Ware MD Date Dictated: 06/13/18 1408 Date Transcribed: 06/17/18728 Diving Fisher: Signed VENOUS DUPLEX LOWER Observed: 06/17/2018 Status: F Source: [place] EXTREMITY 7:07 AM [facility] REPOSITORY [facility] Cardiovascular Services [address] [place] [address] Venous Duplex US, Unilateral 06/13/18 1352 MR#: [id number] Acct: [id number] Name: YADI LARSEN Rep #: [id number] : 1945 72 From: Luiz Simon MD Attending Dr: Jaydon Olivas DO Status: ADM IN Ordering Dr: Becky Burrows SENIOR TEST ENGINEER-C Date: 06/13/18 Location: [place] Sex: F C [...] Chi Performed By: Lorrie Orellana, DAVID, RVT 06/17/18 0707 Date Luiz Simon MD CC: NGA Burrows; Jaydon Olivas DO; Bakari Ware MD Date Dictated: 06/13/18 1352 Date Transcribed: 06/17/18 0707 Diving Fisher: Signed BEDSIDE GLUCOSE Collected: 06/17/2018 Status: F Source: [place] 6:59 AM [facility] REPOSITORY TYPE CODE TESTS RESULT OUT OF REFERENCE UNITS RANGE LAB L501.080 70-110 mg/dL High BEDSIDE GLU 190 Result Comment: MANAGEMENT OF PATIENT CARE PER NURSING PROTOCOL Performed By: #### L501.080 #### [facility] Point of Care [address] [place] [address] BEDSIDE GLUCOSE Collected: 06/16/2018 Status: F Source: [place] 9:21 PM [facility] REPOSITORY TYPE CODE TESTS RESULT OUT OF REFERENCE UNITS RANGE LAB L501.080 70-110 mg/dL High BEDSIDE GLU 262 Result Comment: MANAGEMENT OF PATIENT CARE PER NURSING PROTOCOL Performed By: #### L501.080 #### [facility] Point of Care [address] [place] [address] BEDSIDE GLUCOSE Collected: 06/16/2018 Status: F Source: [place] 5:04 PM [facility] REPOSITORY TYPE CODE TESTS RESULT OUT OF REFERENCE UNITS RANGE LAB L501.080 70-110 mg/dL High BEDSIDE GLU 247 Result Comment: MANAGEMENT OF PATIENT CARE PER NURSING PROTOCOL Performed By: #### L501.080 #### [facility] Point of Care [address] [place] [address] BEDSIDE GLUCOSE Collected: 06/16/2018 Status: F Source: [place] 11:37 AM [facility] REPOSITORY TYPE CODE TESTS RESULT OUT OF REFERENCE UNITS RANGE LAB L501.080 70-110 mg/dL High BEDSIDE GLU 266 Result Comment: MANAGEMENT OF PATIENT CARE PER NURSING PROTOCOL Performed By: #### L501.080 #### [facility] Point of Care [address] [place] [address] BEDSIDE GLUCOSE Collected: 06/16/2018 Status: F Source: [place] 6:31 AM [facility] REPOSITORY TYPE CODE TESTS RESULT OUT OF REFERENCE UNITS RANGE LAB L501.080 70-110 mg/dL High BEDSIDE GLU 172 Result Comment: MANAGEMENT OF PATIENT CARE PER NURSING PROTOCOL Performed By: #### L501.080 #### [facility] Point of Care [address] [place] [address] BEDSIDE GLUCOSE Collected: 06/15/2018 Status: F Source: [place] 11:13 PM [facility] REPOSITORY TYPE CODE TESTS RESULT OUT OF REFERENCE UNITS RANGE LAB L501.080 70-110 mg/dL High BEDSIDE GLU 275 Result Comment: MANAGEMENT OF PATIENT CARE PER NURSING PROTOCOL Performed By: #### L501.080 #### [facility] Point of Care [address] [place] [address] BEDSIDE GLUCOSE Collected: 06/15/2018 Status: F Source: [place] 4:09 PM [facility] REPOSITORY TYPE CODE TESTS RESULT OUT OF REFERENCE UNITS RANGE LAB L501.080 70-110 mg/dL High BEDSIDE GLU 202 Result Comment: MANAGEMENT OF PATIENT CARE PER NURSING PROTOCOL Performed By: #### L501.080 #### [facility] Point of Care [address] [place] [address] BEDSIDE GLUCOSE Collected: 06/15/2018 Status: F Source: [place] 11:56 AM [facility] REPOSITORY TYPE CODE TESTS RESULT OUT OF REFERENCE UNITS RANGE LAB L501.080 70-110 mg/dL High BEDSIDE GLU 179 Result Comment: MANAGEMENT OF PATIENT CARE PER NURSING PROTOCOL Performed By: #### L501.080 #### [facility] Point of Care [address] [place] [address] BEDSIDE GLUCOSE Collected: 06/15/2018 Status: F Source: [place] 7:23 AM [facility] REPOSITORY TYPE CODE TESTS RESULT OUT OF REFERENCE UNITS RANGE LAB L501.080 70-110 mg/dL High BEDSIDE GLU 179 Result Comment: MANAGEMENT OF PATIENT CARE PER NURSING PROTOCOL Performed By: #### L501.080 #### [facility] Point of Care [address] [place] [address] BEDSIDE GLUCOSE Collected: 06/14/2018 Status: F Source: [place] 9:47 PM [facility] REPOSITORY TYPE CODE TESTS RESULT OUT OF REFERENCE UNITS RANGE LAB L501.080 70-110 mg/dL High BEDSIDE GLU 231 Result Comment: MANAGEMENT OF PATIENT CARE PER NURSING PROTOCOL Performed By: #### L501.080 #### [facility] Point of Care [address] [place] [address] BEDSIDE GLUCOSE Collected: 06/14/2018 Status: F Source: [place] 4:59 PM [facility] REPOSITORY TYPE CODE TESTS RESULT OUT OF REFERENCE UNITS RANGE LAB L501.080 70-110 mg/dL High BEDSIDE GLU 214 Result Comment: MANAGEMENT OF PATIENT CARE PER NURSING PROTOCOL Performed By: #### L501.080 #### [facility] Point of Care [address] [place] [address] 12 LEAD ELECTROCARDIOGRAM Observed: 06/14/2018 Status: F Source: [place] 3:49 PM [facility] REPOSITORY [facility] Cardiovascular Services [address] [place] [address] 12 Lead EKG 06/09/18 1727 MR#: [id number] Acct: [id number] Name: YADI LARSEN Rep #: [id number] : 1945 72 From: Bj Matute MD Attending Dr: Rolando Avila MD Status: DIS MAGALIE Ordering Dr: Rolando Avila MD Date: 06/09/18 Location: [facility] Sex: F C Admitted: 06/08/18 [...] Abnormal ECG Confirmed by JUJU BERG, BJ ([id number]), deputy editor in chief SAHARA TIPTON ([id number]) on 06/14/2018 3:48:29 PM Referred By: ELROY Confirmed By:BJ MATUTE MD 06/14/18 1548 Date Bj Matute MD CC: Rolando Avila MD; Bakari Ware MD Signed BEDSIDE GLUCOSE Collected: 06/14/2018 Status: F Source: [place] 11:36 AM [facility] REPOSITORY TYPE CODE TESTS RESULT OUT OF REFERENCE UNITS RANGE LAB L501.080 70-110 mg/dL High BEDSIDE GLU 152 Result Comment: MANAGEMENT OF PATIENT CARE PER NURSING PROTOCOL Performed By: #### L501.080 #### [facility] Point of Care [address] [place] [address] BEDSIDE GLUCOSE Collected: 06/14/2018 Status: F Source: [place] 7:02 AM [facility] REPOSITORY TYPE CODE TESTS RESULT OUT OF REFERENCE UNITS RANGE LAB L501.080 70-110 mg/dL High BEDSIDE GLU 181 Result Comment: MANAGEMENT OF PATIENT CARE PER NURSING PROTOCOL Performed By: #### L501.080 #### [facility] Point of Care [address] [place] [address] BEDSIDE GLUCOSE Collected: 06/13/2018 Status: F Source: [place] 9:43 PM [facility] REPOSITORY TYPE CODE TESTS RESULT OUT OF REFERENCE UNITS RANGE LAB L501.080 70-110 mg/dL High BEDSIDE GLU 245 Result Comment: MANAGEMENT OF PATIENT CARE PER NURSING PROTOCOL Performed By: #### L501.080 #### [facility] Point of Care [address] [place] [address] BEDSIDE GLUCOSE Collected: 06/13/2018 Status: F Source: [place] 5:08 PM [facility] REPOSITORY TYPE CODE TESTS RESULT OUT OF REFERENCE UNITS RANGE LAB L501.080 70-110 mg/dL High BEDSIDE GLU 130 Result Comment: MANAGEMENT OF PATIENT CARE PER NURSING PROTOCOL Performed By: #### L501.080 #### [facility] Point of Care [address] [place] [address] BEDSIDE GLUCOSE Collected: 06/13/2018 Status: F Source: [place] 11:37 AM [facility] REPOSITORY TYPE CODE TESTS RESULT OUT OF REFERENCE UNITS RANGE LAB L501.080 70-110 mg/dL High BEDSIDE GLU 166 Result Comment: MANAGEMENT OF PATIENT CARE PER NURSING PROTOCOL Performed By: #### L501.080 #### [facility] Point of Care [address] [place] [address] BEDSIDE GLUCOSE Collected: 06/13/2018 Status: F Source: [place] 6:31 AM [facility] REPOSITORY TYPE CODE TESTS RESULT OUT OF REFERENCE UNITS RANGE LAB L501.080 70-110 mg/dL High BEDSIDE GLU 169 Result Comment: MANAGEMENT OF PATIENT CARE PER NURSING PROTOCOL Performed By: #### L501.080 #### [facility] Point of Care [address] [place] [address] BEDSIDE GLUCOSE Collected: 06/12/2018 Status: F Source: [place] 8:16 PM [facility] REPOSITORY TYPE CODE TESTS RESULT OUT OF REFERENCE UNITS RANGE LAB L501.080 70-110 mg/dL High BEDSIDE GLU 201 Result Comment: MANAGEMENT OF PATIENT CARE PER NURSING PROTOCOL Performed By: #### L501.080 #### [facility] Point of Care [address] [place] [address] BEDSIDE GLUCOSE Collected: 06/12/2018 Status: F Source: [place] 4:31 PM [facility] REPOSITORY TYPE CODE TESTS RESULT OUT OF REFERENCE UNITS RANGE LAB L501.080 70-110 mg/dL High BEDSIDE GLU 187 Result Comment: MANAGEMENT OF PATIENT CARE PER NURSING PROTOCOL Performed By: #### L501.080 #### [facility] Point of Care [address] [place] [address] BEDSIDE GLUCOSE Collected: 06/12/2018 Status: F Source: [place] 12:06 PM [facility] REPOSITORY TYPE CODE TESTS RESULT OUT OF REFERENCE UNITS RANGE LAB L501.080 70-110 mg/dL High BEDSIDE GLU 194 Result Comment: MANAGEMENT OF PATIENT CARE PER NURSING PROTOCOL Performed By: #### L501.080 #### [facility] Point of Care [address] [place] [address] BEDSIDE GLUCOSE Collected: 06/12/2018 Status: F Source: [place] 6:38 AM [facility] REPOSITORY TYPE CODE TESTS RESULT OUT OF REFERENCE UNITS RANGE LAB L501.080 70-110 mg/dL High BEDSIDE GLU 156 Result Comment: MANAGEMENT OF PATIENT CARE PER NURSING PROTOCOL Performed By: #### L501.080 #### [facility] Point of Care [address] [place] [address] BEDSIDE GLUCOSE Collected: 06/11/2018 Status: F Source: [place] 11:02 PM [facility] REPOSITORY TYPE CODE TESTS RESULT OUT OF REFERENCE UNITS RANGE LAB L501.080 70-110 mg/dL High BEDSIDE GLU 212 Result Comment: MANAGEMENT OF PATIENT CARE PER NURSING PROTOCOL Performed By: #### L501.080 #### [facility] Point of Care [address] [place] [address] BEDSIDE GLUCOSE Collected: 06/11/2018 Status: F Source: [place] 8:18 PM [facility] REPOSITORY TYPE CODE TESTS RESULT OUT OF REFERENCE UNITS RANGE LAB L501.080 70-110 mg/dL High BEDSIDE GLU 228 Result Comment: MANAGEMENT OF PATIENT CARE PER NURSING PROTOCOL Performed By: #### L501.080 #### [facility] Point of Care [address] [place] [address] BEDSIDE GLUCOSE Collected: 06/11/2018 Status: F Source: [place] 4:59 PM [facility] REPOSITORY TYPE CODE TESTS RESULT OUT OF REFERENCE UNITS RANGE LAB L501.080 70-110 mg/dL High BEDSIDE GLU 220 Result Comment: MANAGEMENT OF PATIENT CARE PER NURSING PROTOCOL Performed By: #### L501.080 #### [facility] Point of Care [address] [place] [address] BEDSIDE GLUCOSE Collected: 06/11/2018 Status: F Source: [place] 11:41 AM [facility] REPOSITORY TYPE CODE TESTS RESULT OUT OF REFERENCE UNITS RANGE LAB L501.080 70-110 mg/dL High BEDSIDE GLU 306 Result Comment: MANAGEMENT OF PATIENT CARE PER NURSING PROTOCOL Performed By: #### L501.080 #### [facility] Point of Care [address] [place] [address] CBC W/DIFF, AUTOMATED Collected: 06/11/2018 Status: F Source: [place] 7:40 AM [facility] REPOSITORY TYPE CODE TESTS RESULT OUT OF [...] Lymph 1.84 Performed By: #### L100.0100 #### [facility] [address] [place], [place], [address] COMPREHENSIVE METABOLIC Collected: 06/11/2018 Status: F Source: [place] HER 7:40 AM [facility] REPOSITORY TYPE CODE TESTS RESULT OUT OF [...] GAP 8 Performed By: #### L500.4050 #### [facility] [address] [place], [address] BEDSIDE GLUCOSE Collected: 06/11/2018 Status: F Source: [place] 7:08 AM [facility] REPOSITORY TYPE CODE TESTS RESULT OUT OF REFERENCE UNITS RANGE LAB L501.080 70-110 mg/dL High BEDSIDE GLU 206 Result Comment: MANAGEMENT OF PATIENT CARE PER NURSING PROTOCOL Performed By: #### L501.080 #### [facility] Point of Care [address] [place] [address] BEDSIDE GLUCOSE Collected: 06/10/2018 Status: F Source: [place] 8:25 PM [facility] REPOSITORY TYPE CODE TESTS RESULT OUT OF REFERENCE UNITS RANGE LAB L501.080 70-110 mg/dL High BEDSIDE GLU 306 Result Comment: MANAGEMENT OF PATIENT CARE PER NURSING PROTOCOL Performed By: #### L501.080 #### [facility] Point of Care [address] [place], [place] [address] BEDSIDE GLUCOSE Collected: 06/10/2018 Status: F Source: [place] 4:41 PM [facility] REPOSITORY TYPE CODE TESTS RESULT OUT OF REFERENCE UNITS RANGE LAB L501.080 70-110 mg/dL High BEDSIDE GLU 284 Result Comment: MANAGEMENT OF PATIENT CARE PER NURSING PROTOCOL Performed By: #### L501.080 #### [facility] Point of Care [address] [place] [address] DISCHARGE SUMMARY Observed: 06/10/2018 Status: F Source: [place] 4:39 PM [facility] REPOSITORY [facility] Medical Records Department [address] [place] [address] Discharge Summary 06/10/18 1233 MR#: [id number] Acct: [id number] Name: YADI LARSEN Samira Rep #: [id number] : 1945 72 From: Rolando Avila MD PCP: Chaz BERG,Bakari Chi Status: ADM MAGALIE Y Location: [place] [address] Discharge Date and Diagnosis Date of Admission: [...] 70% luminal narrowing. CTA Brain: IMPRESSION: Normal [place] without a demonstrated aneurysm or [...] [Zestril] 20 mg PO DAILY #30 tablet 08/29/16 Escitalopram Oxalate [Lexapro] 20 mg PO QHS [...] Indicated Code Visit OBSV E AND M: 45326 Observation care discharge 06/10/18 1639 <Electronically signed by Rolnado Avila MD> Date Rolando Avila MD Cosigner Signature (if applicable): Date CC: Rolando Avila MD; Bakari Ware MD Signed 12 LEAD ELECTROCARDIOGRAM Observed: 06/10/2018 Status: F Source: [place] 2:26 PM [facility] REPOSITORY [facility] Cardiovascular Services [address] [place] [address] 12 Lead EKG 06/08/18 1030 MR#: [id number] Acct: [id number] Name: YADI LARSEN Rep #: [id number] : 1945 72 From: George Bourne MD Attending Dr: Rolando Avila MD Status: ADM MAGALIE Ordering Dr: Michael Ocampo MD Date: 06/08/18 Location: [facility] Sex: F C Admitted: 06/08/18 [...] ECG Confirmed by CHESTER BERG, GEORGE ([id number]), deputy editor in chief ABBE ELIAS ([id number]) on 06/10/2018 2:26:45 PM Referred By: ADOLFO Confirmed By:GEORGE BOURNE MD 06/10/18 1426 Date George Bourne MD CC: Michael Ocampo MD; Rolando Avila MD; Bakari Ware MD Signed DISCHARGE INSTRUCTION Observed: 06/10/2018 Status: F Source: [place] 12:33 PM [facility] REPOSITORY [facility] Medical Records Department [address] [place] [address] Instructions for Home/Discharge Instructions 06/10/18 1232 MR#: [id number] Acct: [id number] Name: YADI LARSEN Rep #: [id number] : 1945 72 From: Rolando Avila MD [...] 06/10/2018 Status: F Source: [place] 12:02 PM [facility] REPOSITORY TYPE CODE TESTS RESULT OUT OF REFERENCE UNITS RANGE LAB L501.080 70-110 mg/dL High BEDSIDE GLU 404 Result Comment: MANAGEMENT OF PATIENT CARE PER NURSING PROTOCOL Performed By: #### L501.080 #### [facility] Point of Care [address] [place] [address] BEDSIDE GLUCOSE Collected: 06/10/2018 Status: F Source: [place] 6:59 AM [facility] REPOSITORY TYPE CODE TESTS RESULT OUT OF REFERENCE UNITS RANGE LAB L501.080 70-110 mg/dL High BEDSIDE GLU 207 Result Comment: MANAGEMENT OF PATIENT CARE PER NURSING PROTOCOL Performed By: #### L501.080 #### [facility] Point of Care [address] [place] [address] BEDSIDE GLUCOSE Collected: 06/09/2018 Status: F Source: [place] 8:50 PM [facility] REPOSITORY TYPE CODE TESTS RESULT OUT OF REFERENCE UNITS RANGE LAB L501.080 70-110 mg/dL High BEDSIDE GLU 272 Result Comment: MANAGEMENT OF PATIENT CARE PER NURSING PROTOCOL Performed By: #### L501.080 #### [facility] Point of Care [address] [place] [address] BEDSIDE GLUCOSE Collected: 06/09/2018 Status: F Source: [place] 4:15 PM [facility] REPOSITORY TYPE CODE TESTS RESULT OUT OF REFERENCE UNITS RANGE LAB L501.080 70-110 mg/dL High BEDSIDE GLU 258 Result Comment: MANAGEMENT OF PATIENT CARE PER NURSING PROTOCOL Performed By: #### L501.080 #### [facility] Point of Care [address] [place] [address] VENOUS DUPLEX LOWER Observed: 06/09/2018 Status: F Source: [place] EXTREMITY 1:09 PM [facility] REPOSITORY [facility] Cardiovascular Services [address] [place] [address] Venous Duplex US, Unilateral 06/08/18 1124 MR#: [id number] Acct: [id number] Name: YADI LARSEN Rep #: [id number] : 1945 72 From: Luiz Simon MD [...] patent and compressible segmentally. Ordering Physician: Michael Oacmpo Referring Physician: Bakari Wrae Chi Performed By: Lorrie Orellana RVT, RDCS and Student 06/09/18 1309 Date Luiz Simon MD CC: Michael Ocampo MD; Rolando Avila MD; Bakari Ware MD Date Dictated: 06/08/18 1124 Date Transcribed: 06/09/18 1309 Diving Fisher: Signed BEDSIDE GLUCOSE Collected: 06/09/2018 Status: F Source: [place] 11:23 AM [facility] REPOSITORY TYPE CODE TESTS RESULT OUT OF REFERENCE UNITS RANGE LAB L501.080 70-110 mg/dL High BEDSIDE GLU 274 Result Comment: MANAGEMENT OF PATIENT CARE PER NURSING PROTOCOL Performed By: #### L501.080 #### [facility] Point of Care [address] [place] [address] BEDSIDE GLUCOSE Collected: 06/09/2018 Status: F Source: [place] 6:55 AM [facility] REPOSITORY TYPE CODE TESTS RESULT OUT OF REFERENCE UNITS RANGE LAB L501.080 70-110 mg/dL High BEDSIDE GLU 166 Result Comment: MANAGEMENT OF PATIENT CARE PER NURSING PROTOCOL Performed By: #### L501.080 #### [facility] Point of Care [address] [place], [place] [address] BASIC METABOLIC Collected: 06/09/2018 Status: F Source: [place] PROFILE (BMP) 6:15 AM [facility] REPOSITORY TYPE CODE TESTS RESULT OUT OF [...] 8 Performed By: #### L500.2500, L500.4100 #### [facility] [address] [place], [place], [address] LIPID PROFILE Collected: 06/09/2018 Status: F Source: [place] 6:15 AM [facility] REPOSITORY TYPE CODE TESTS RESULT OUT OF [...] 9 Performed By: #### L500.2500, L500.4100 #### [facility] [address] [place], [address] BRAIN/HEAD WITHOUT Observed: 06/09/2018 Status: F Source: [place] CONTRAST 12:00 AM [facility] REPOSITORY [facility] Imaging Services [address] [place] [address] Brain/Head without Contrast MR#: [id number] Acct: [id number] Name: YADI LARSEN Rep #: [id number] : 1945 F 72 From: Leonard Galo MD PCP: Chaz BERG,Bakari [facility] Status: ADM MAGALIE Study: Brain/Head without Contrast Date of Exam: 06/09/18 Exam# [id number] Ordering Dr: Rolando Avila MD STUDY: CT [...] CC: Rolando Avila MD; Bakari Ware MD Diving Fisher: Signed BEDSIDE GLUCOSE Collected: 06/08/2018 Status: F Source: [place] 10:01 PM [facility] REPOSITORY TYPE CODE TESTS RESULT OUT OF REFERENCE UNITS RANGE LAB L501.080 70-110 mg/dL High BEDSIDE GLU 220 Result Comment: MANAGEMENT OF PATIENT CARE PER NURSING PROTOCOL Performed By: #### L501.080 #### [facility] Point of Care [address] [place] [address] HISTORY AND PHYSICAL Observed: 06/08/2018 Status: F Source: [place] EXAM 5:47 PM [facility] REPOSITORY [facility] Medical Records Department [address] [place] [address] History and Physical 06/08/18 1720 MR#: [id number] Acct: [id number] Name: YADI LARSEN Rep #: [id number] : 1945 72 From: Rolando Avila MD PCP: Bakari Ware MD, Chi Status: ADM MAGALIE Y Location: [place] [address] Problem List (1) Type 2 diabetes mellitus [...] symptoms but does not take any medications BANK EXAMINER History: No pertinent BANK EXAMINER history Smoking Status: Former smoker Tobacco Use: [...] SCDs Code Visit OBSV E AND M: 05576 Observation care discharge 06/08/181746 <Electronically signed by Rolando Avila MD> Date Rolando Avila MD Cosigner Signature: Date (if applicable) CC: Rolando Avila MD; Bakari Ware MD Signed ECHO, COMPLETE W/ Observed: 06/08/2018 Status: F Source: [place] CONTRAST 4:39 PM [facility] REPOSITORY [facility] Cardiovascular Services [address] [place] [address] Echo Complete W/ Contrast 06/08/18 1528 MR#: [id number] Acct: [id number] Name: YADI LARSEN Rep #: [id number] : 1945 72 From: Michael Wing MD Attending Dr: Rolando Avila MD Status: ADM MAGALIE Ordering Dr: Rolando Avila MD Date: 06/08/18 Location: [facility] Sex: F C Admitted: 06/08/18 [...] Physician: Bakari Ware Chi Performed By: Janis Garcia RDCS, RVT 06/08/18 1639 Date Michael Wing MD CC: Rolando Avila MD; Bakari Ware MD Date Dictated: 06/08/18 1528 Date Transcribed: 06/08/181638 Diving Fisher: Signed BEDSIDE GLUCOSE Collected: 06/08/2018 Status: F Source: [place] 4:26 PM [facility] REPOSITORY TYPE CODE TESTS RESULT OUT OF REFERENCE UNITS RANGE LAB L501.080 70-110 mg/dL High BEDSIDE GLU 182 Result Comment: MANAGEMENT OF PATIENT CARE PER NURSING PROTOCOL Performed By: #### L501.080 #### [facility] Point of Care [address] [address] EMERGENCY DEPARTMENT Observed: 06/08/2018 Status: F Source: [place] SUMMARY 4:14 PM [facility] REPOSITORY [facility] Medical Records Department [address] [place] [address] Emergency Department Summary 06/08/18 1111 MR#: [id number] Acct: [id number] Name: YADI LARSEN Samira Rep #: [id number] : 1945 72 From: Michael Ocampo MD PCP: Bakari Ware MD, Chi Status: ADM MAGALIE - ER Visit Summary Date of Service: 06/08/18 Chief Complaint: Stroke History of Present Illness: The patient is a 72 F with stroke symptoms. Patient was last seen normal at 6:20 AM this morning. She went to daycare teacher and had a bladder stimulator placed. She [...] leg swelling This note was generated with FIXO dictation software. It may contain incorrect words, [...] your Primary Care Provider. Call [facility] ([phone]) or report to the closest Emergency Room. Call 911 if necessary. 06/08/18 1834 <Electronically signed by Michael Ocampo MD> Date Michael Ocampo MD Cosigner Signature (If Indicated): Date CC: Bakari Ware MD CONSULTATION Observed: 06/08/2018 Status: F Source: [place] 2:04 PM [facility] REPOSITORY [facility] Medical Records Department [address] [place] [address] Consultation 06/08/18 1348 MR#: [id number] Acct: [id number] Name: YADI LARSEN Rep #: [id number] : 1945 72 From: Musa Llamas MD PCP: Bakari Ware MD, Chi Status: ADM MAGALIE Y Location: [place] [address] Reason for Consult Date of Consultation: 06/08/18 [...] symptoms but does not take any medications BANK EXAMINER History: No pertinent BANK EXAMINER history Smoking Status: Former smoker - *Family [...] 06/08/2018 Status: F Source: [place] 12:45 PM [facility] REPOSITORY TYPE CODE TESTS RESULT OUT OF [...] Lymph 2.18 Performed By: #### L100.0100 #### [facility] [address] [place], [place], [id number] CBC W/DIFF, AUTOMATED Collected: 06/08/2018 Status: F Source: [place] 10:29 AM [facility] REPOSITORY TYPE CODE TESTS RESULT OUT OF [...] Lymph 2.19 Performed By: #### L100.0100 #### [facility] [address] [place], [address] PROTHROMBIN TIME W/INR Collected: 06/08/2018 Status: F Source: [place] 10:29 AM [facility] REPOSITORY TYPE CODE TESTS RESULT OUT OF RANGE REFERENCE UNITS LAB L300.4150 11.7-14.9 SECONDS Normal PROTIME 14.4 LAB L300.4200 Normal INR 1.1 Performed By: #### L300.3900, L300.4310 #### [facility] [address] [facility] [address] [facility] [address] PARTIAL THROMBOPLAST Collected: 06/08/2018 Status: F Source: [place] TIME 10:29 AM [facility] REPOSITORY TYPE CODE TESTS RESULT OUT OF RANGE REFERENCE UNITS LAB L300.4310 24.1-36.2 Seconds Normal PTT 31.5 Performed By: #### L300.3900, L300.4310 #### [facility] [address] [facility] [address] [facility] [address] BASIC METABOLIC Collected: 06/08/2018 Status: F Source: [place] PROFILE (BMP) 10:29 AM [facility] REPOSITORY TYPE CODE TESTS RESULT OUT OF [...] 8 Performed By: #### L500.2500, L501.4010 #### [facility] [address] [place], [address] TROPONIN-I Collected: 06/08/2018 Status: F Source: [place] 10:29 AM [facility] REPOSITORY TYPE CODE TESTS RESULT OUT OF RANGE REFERENCE UNITS LAB L501.4010 <0.045 ng/mL Normal < 0.015 TROPONIN-I Result Comment: TROPONIN-I EXPECTED VALUES <0.045 Negative 0.045 - 0.590 Consistent with Cardiac Damage > OR = 0.600 Critical Value Not every elevated troponin is indicative of AR. These values should be used with clinical judgement in examining the patient's clinical picture for diagnosis. To establish a diagnosis of AR versus myocardial injury, there must be a demonstrated rise and/or fall in the troponin values, in addition to ischemic symptoms, EKG changes, new regional wall motion abnormality, and/or angiographical evidence. PLEASE NOTE: REFERENCE RANGES EDITED 17 Performed By: #### L500.2500, L501.4010 #### [facility] [address] [facility] [place], [place], [address] CTA NECK W/WO Observed: 06/08/2018 Status: F Source: [place] CONTRAST 10:20 AM [facility] REPOSITORY [facility] Imaging Services [address] [place] [address] CTA Neck W/WO Contrast MR#: [id number] Acct: [id number] Name: YADI LARSEN Rep #: [id number] : 1945 F 72 From: Tyson Lim MD PCP: Chaz BERG,Bakari Chi Status: ADM MAGALIE Study: CTA Neck W/WO Contrast Date of Exam: 06/08/18 Exam# [id number] Ordering Dr: [place] Ocampo MD STUDY: CTA [...] Tyson Lim MD at 10:50 EST Tel [phone], Service support , STUDY: CTA OF THE [...] There is no demonstrated aneurysm of the [place]. CT/CTA Neck W/WO Contrast IMPRESSION: Normal [place] without a demonstrated aneurysm or hemodynamically significant stenosis. N.B. : The above information has been verbally conveyed by Tyson Lim MD to Michael Ocampo on 06/08/2018 10:50:29 (ET). Electronically Signed: Tyson Lim MD at 10:52 EST Tel [phone], Service support , CC: [place] Ocampo MD; Bakari Ware MD Diving Fisher: Signed CTA HEAD W/WO Observed: 06/08/2018 Status: F Source: [place] CONTRAST 10:20 AM [facility] REPOSITORY [facility] Imaging Services [address] [place] [address] CTA Head W/WO Contrast MR#: [id number] Acct: [id number] Name: YADI LARSEN Rep #: [id number] : 1945 F 72 From: Tsyon Lim MD PCP: Bakari Ware MD, Chi Status: ADM MAGALIE Study: CTA Head W/WO Contrast Date of Exam: 06/08/18 Exam# [id number] Ordering Dr: [place] Ocampo MD STUDY: CTA [...] Tyson Lim MD at 10:50 EST Tel [phone], Service support , STUDY: CTA OF THE [...] There is no demonstrated aneurysm of the [place]. CT/CTA Head W/WO Contrast IMPRESSION: Normal [place] without a demonstrated aneurysm or hemodynamically significant stenosis. N.B. : The above information has been verbally conveyed by Tyson Lim MD to Michael Ocampo on 06/08/2018 10:50:29 (ET). Electronically Signed: Tyson Lim MD at 10:52 EST Tel [phone], Service support , CC: [place] Ocampo MD; Bakari Ware MD Diving Fisher: Signed BRAIN/HEAD WITHOUT Observed: 06/08/2018 Status: F Source: [place] CONTRAST 10:18 AM [facility] REPOSITORY [facility] Imaging Services [facility] [place] [place] [address] Brain/Head without Contrast MR#: [id number] Acct: [id number] Name: KHOIYADI S Rep #: [id number] : 1945 F 72 From: Tyson Lim MD PCP: Bakari Ware MD, Chi Status: REG ER Study: Brain/Head without Contrast Date of Exam: 06/08/18 Exam# [id number] Ordering Dr: [place] Ocampo MD STUDY: CT [...] Tyson Lim MD at 10:46 EST Tel [phone], Service support , CC: [place] Ocampo MD; Bakari Ware MD Diving Fisher: Signed CHEST 1 VIEW Observed: 06/08/2018 Status: F Source: [place] 10:18 AM [facility] REPOSITORY [facility] Imaging Services [address] [place] [address] Chest 1 View MR#: [id number] Acct: [id number] Name: YADI LARSEN Rep #: [id number] : 1945 F 72 From: Tyson Lim MD PCP: Bakari Ware MD, Chi Status: REG ER Study: Chest 1 View Date of Exam: 06/08/18 Exam# [id number] Ordering Dr: [place] Ocampo MD STUDY: X-RAY [...] Tyson Lim MD at 11:16 EST Tel [phone], Service support , CC: [place] Ocampo MD; Bakari Ware MD Diving Fisher: Signed BEDSIDE GLUCOSE Collected: 06/08/2018 Status: F Source: [place] 10:10 AM [facility] REPOSITORY TYPE CODE TESTS RESULT OUT OF REFERENCE UNITS RANGE LAB L501.080 70-110 mg/dL High BEDSIDE GLU 221 Result Comment: MANAGEMENT OF PATIENT CARE PER NURSING PROTOCOL Performed By: #### L501.080 #### [facility] Point of Care [address] [place] [address] BEDSIDE GLUCOSE Collected: 06/08/2018 Status: F Source: [place] 9:50 AM [facility] REPOSITORY TYPE CODE TESTS RESULT OUT OF REFERENCE UNITS RANGE LAB L501.080 70-110 mg/dL High BEDSIDE GLU 242 Result Comment: MANAGEMENT OF PATIENT CARE PER NURSING PROTOCOL Performed By: #### L501.080 #### [facility] Point of Care [address] [place] [address] PELVIS 1 OR 2 VIEWS Observed: 06/08/2018 Status: F Source: [place] 8:28 AM [facility] REPOSITORY [facility] Imaging Services [address] [place] [address] Pelvis 1 or 2 Views MR#: [id number] Acct: [id number] Name: YADI LARSEN Samira Rep #: [id number] : 1945 F 72 From: Tyson Lim MD PCP: Chaz BERG,[facility] Status: [facility] Study: Pelvis 1 or 2 Views Date of Exam: 06/08/18 Exam# [id number] Ordering Dr: Connor Brito MD STUDY: X-RAY [...] Tyson Lim MD at 9:29 EST Tel [phone], Service support , CC: Connor Brito MD; Bakari Ware MD Diving Fisher: Signed OPERATIVE REPORT Observed: 06/08/2018 Status: F Source: [place] 8:25 AM [facility] REPOSITORY [facility] Medical Records Department [address] [place] [address] Operative Report 06/08/18 0820 MR#: [id number] Acct: [id number] Name: YADI LARSEN Rep #: [id number] : 1945 72 From: Connor Brito MD PCP: Bakari Ware MD, Chi Status: REG SDC Y Location: [place] [address] Report of Operation Date of Procedure: 06/08/18 [...] DISCHARGE INSTRUCTION Observed: 06/08/2018 Status: F Source: [place] 7:29 AM [facility] Medical Records Department [address] [place] [address] Instructions for Home/Discharge Instructions 06/08/18 0727 MR#: [id number] Acct: [id number] Name: YADI LARSEN Rep #: [id number] : 1945 72 From: Connor Brito MD PCP: Bakari Ware MD, Chi Status: REG [facility] Discharge Diet: Light diet [...] MD When: next week to see if interstim is working 06/08/18 0729 <Electronically signed by Connor Brito MD> Date Connor Brito MD CC: Bakari Ware MD BEDSIDE GLUCOSE Collected: 06/08/2018 Status: F Source: [place] 6:50 AM [facility] REPOSITORY TYPE CODE TESTS RESULT OUT OF REFERENCE UNITS RANGE LAB L501.080 70-110 mg/dL High BEDSIDE GLU 236 Result Comment: MANAGEMENT OF PATIENT CARE PER NURSING PROTOCOL Performed By: #### L501.080 #### [facility] Point of Care [address] [place] [address] Observed: 05/27/2018 Status: F Source: [place] CULTURE, URINE 10:30 AM [facility] REPOSITORY Urine Culture ORGANISM 1: Presumptive E. coli [place] Count >100,000 Presumptive E. coli: REACTION Amoxacillin/Clavulanic [...] <=20 S (NF) indicates non-formulary drug at [facility]. Approval by Infectious Disease Specialist required before non-formulary drugs may be ordered and/or dispensed. Performed By: #### M100.0650 #### [facility] [address] [facility] [address] [place], [place], [address] PROGRESS Observed: 05/17/2018 Status: COMPLETED Source: [place] 9:10 AM [facility] REPOSITORY O ID: [id number] Author: Etelvina Mckeon Cma Service: (none) Author Type: (none) Type: Progress Notes Filed: 05/17/2018 9:10 AM Note Text: Patient is seeing a different physician. I removed Dr. Bradford as PCP PROGRESS Observed: 05/12/2018 Status: COMPLETED Source: BREA 9:06 AM [facility] [place] REPOSITORY HNO ID: [id number] Author: Etelvina Mike [facility] Service: (none) Author Type: (none) Type: Progress Notes Filed: 05/17/2018 9:10 AM Note Text: [facility] CARE GAP REGISTRY DOCUMENTATION (OUTSIDE TEAMLET) Provider Action/FYI: PSR Action/FYI: *schedule physical appointment with labs prior *discuss HM Patient identified by name and date of . Last BP/Labs: Blood Pressure: Last 3 Encounter BP Readings: Date: BP: 06/09/2017 128/85 12/17/2016 118/78 10/09/2016 130/70 Lipids: Cholesterol, Total (mg/dL) Date Value 08/17/2015 Test sent to [facility]. 12/05/2014 113 HDL Cholesterol (mg/dL) Date Value 08/17/2015 Test sent to [facility]. 12/05/2014 60 LDL Cholesterol (mg/dL) Date Value 08/17/2015 Test sent to [facility]. 12/05/2014 46 Triglyceride (mg/dL) Date Value 08/17/2015 Test sent to [facility]. 12/05/2014 35 HGB A1C: Lab Results Component Value Date HBA1C 6.5 05/21/2016 HBA1C Test sent to [facility]. 08/17/2015 HBA1C 6.4 12/05/2014 HBA1C 6.7 06/18/2014 [...] Cma CNPTOUTREACH Observed: 05/12/2018 Status: COMPLETED Source: BREA 12:00 AM [facility] REPOSITORY Patient Outreach (INTMWS) YADI LARSEN ([id number]) 1945 F Date Time Provider Department 05/12/18 ETELVINA MCKEON) INTMWS During your visit today, we recorded the following information about you: Etelvina Mckeon Cma 05/17/2018 9:10 AM Signed [facility] CARE GAP REGISTRY DOCUMENTATION (OUTSIDE TEAMLET) Provider Action/FYI: PSR Action/FYI: *schedule physical appointment with labs prior *discuss HM Patient identified by name and date of . Last BP/Labs: Blood Pressure: Last 3 Encounter BP Readings: Date: BP: 06/09/2017 128/85 12/17/2016 118/78 10/09/2016 130/70 Lipids: Cholesterol, Total (mg/dL) Date Value 08/17/2015 Test sent to [facility]. 12/05/2014 113 HDL Cholesterol (mg/dL) Date Value 08/17/2015 Test sent to [facility]. 12/05/2014 60 LDL Cholesterol (mg/dL) Date Value 08/17/2015 Test sent to [facility]. 12/05/2014 46 Triglyceride (mg/dL) Date Value 08/17/2015 Test sent to [facility]. 12/05/2014 35 HGB A1C: Lab Results Component Value Date HBA1C 6.5 05/21/2016 HBA1C Test sent to [facility]. 08/17/2015 HBA1C 6.4 12/05/2014 HBA1C 6.7 06/18/2014 [...] office visit:Physical with labs prior Etelvina Mckeon Quality Management Coordinator Etelvina Mckeon Quality Management Coordinator 05/17/2018 9:10 AM Signed Patient is seeing [...] diabetes mellitus with diabetic neuropathy, unspecified whether livestock ranch hand insulin use (HCC) [E11.40] Order(s):HGB A1C [IBNKY7A] Order #: [id number] FUTURE ALBUMIN/CREAT RATIO RND UR [SQUACR] Order #: [id number] FUTURE BASIC METABOLIC PNL [SQBMP] Order #: [id number] FUTURE LIPID PANEL BASIC [SQLIPB] Order #: [id number] FUTURE Prescriptions as of 05/12/2018 Sig: CLOPIDOGREL [...] Lift chair. Dx. I69.3 M21.37* COMPOUNDED PRESCRIPTION USP - diabetic ma* COMPOUNDED PRESCRIPTION Left AFO [...] INVALID FOR* More... PAD (peripheral artery disease) ([facility]) [I73.9] INVALID FOR* Left foot drop [M21.372] INVALID FOR* Closed traumatic displaced fracture of base of *INVALID FOR* Left hemiparesis ([facility]) [G81.94] INVALID FOR* Abnormality of gait [R26.9] INVALID FOR* CVA, old, hemiparesis ([facility]) [I69.359] INVALID FOR* Encounter Status:Closed by ETELVINA MCKEON CMA on 05/17/18 URINALYSIS, COMPLETE Collected: 04/19/2018 Status: F Source: [place] 1:33 PM [facility] REPOSITORY Order Comment: How was Urine Obtained? [...] MUCUS, URINE Performed By: #### L400.0001 #### [facility] [address] [place], [address] Observed: 04/19/2018 Status: F Source: [place] CULTURE, URINE 1:33 PM [facility] REPOSITORY Urine Culture ORGANISM 1: Presumptive E. coli [place] Count >100,000 Presumptive E. coli: REACTION Amoxacillin/Clavulanic [...] <=20 S (NF) indicates non-formulary drug at [facility]. Approval by Infectious Disease Specialist required before non-formulary drugs may be ordered and/or dispensed. Performed By: #### M100.0650 #### [facility] [address] [place], [address] ANKLE MIN 3 VIEWS Observed: 04/14/2018 Status: F Source: [place] 2:42 PM [facility] REPOSITORY [facility] Imaging Services [address] [place] [address] Ankle min 3 Views MR#: [id number] Acct: [id number] Name: YADI LARSEN Rep #: [id number] : 1945 F 72 From: Alejandrina Mota MD PCP: Bakari Ware MD, Chi Status: REG CLI Study: Ankle min 3 Views Date of Exam: 04/14/18 Exam# [id number] Ordering Dr: Bakari Ware MD STUDY: X-RAY [...] Service support , CC: Bakari Ware MD Diving Fisher: Signed FOOT MIN 3 VIEWS Observed: 04/14/2018 Status: F Source: [place] 2:42 PM [facility] REPOSITORY [facility] Imaging Services [address] [place] [address] Foot min 3 Views MR#: [id number] Acct: [id number] Name: YADI LARSEN Rep #: [id number] : 1945 F 72 From: Rolan Rascon MD PCP: Bakari Ware MD, Chi Status: REG CLI Study: Foot min 3 Views Date of Exam: 04/14/18 Exam# [id number] Ordering Dr: Bakari Ware MD STUDY: X-RAY [...] Service support , CC: Bakari Ware MD Diving Fisher: Signed CBC W/DIFF, AUTOMATED Collected: 04/14/2018 Status: F Source: [place] 1:05 PM [facility] REPOSITORY TYPE CODE TESTS RESULT OUT OF [...] Lymph 1.71 Performed By: #### L100.0100 #### [facility] [address] [place], [address] VITAMIN D,25 HYDROXY Collected: 04/14/2018 Status: F Source: [place] 1:05 PM [facility] REPOSITORY TYPE CODE TESTS RESULT OUT OF REFERENCE UNITS RANGE LAB L506.1000 29.95-100.01 ng/mL Low Vitamin D 22.6 25-OH Result Comment: Vitamin D 25(OH) Status Range Deficiency <20 ng/mL (50nmol/L) Insuffciency 20 - 30 ng/mL (50 - 75 nmol/L) Sufficiency 30 - 100 ng/mL (75 - 250 nmol/L) Toxicity >100 ng/mL (>250 nmol/L) Performed By: #### L506.1000 #### [facility] [address] [place], [address] COMPREHENSIVE METABOLIC Collected: 04/14/2018 Status: F Source: [place] HER 1:05 PM [facility] REPOSITORY TYPE CODE TESTS RESULT OUT OF [...] 5 Performed By: #### L500.4050, L501.9520 #### [facility] [address] [place], [address] THYROID STIM HORMONE Collected: 04/14/2018 Status: F Source: [place] (TSH) 1:05 PM [facility] REPOSITORY TYPE CODE TESTS RESULT OUT OF RANGE REFERENCE UNITS LAB L501.9520 0.358-3.74 uIU/mL Normal TSH 0.66 Performed By: #### L500.4050, L501.9520 #### [facility] [address] [place], [address] LUNG Observed: 04/08/2018 Status: F Source: [place] SCREENING 3:52 PM [facility] REPOSITORY [facility] Imaging Services [address] [facility] [place] [address] Lung Screening MR#: [id number] Acct: [id number] Name: YADI LARSEN Rep #: [id number] : 1945 F 72 From: Ab Hylton DO PCP: Bakari Ware MD, Chi Status: [facility] CL Study: Low Dose CT Lung Screening Date of Exam: 04/08/18 Exam# [id number] Ordering Dr: Bakari Ware MD STUDY: LOW [...] the 0-4 Lung-RADS Electronically Signed: Ab Hylton at 21:43 EDT Tel [phone], Service support , CC: Bakari Ware MD Diving Fisher: Signed CBC W/DIFF, AUTOMATED Collected: 12/22/2017 Status: F Source: [place] 4:24 PM [facility] REPOSITORY TYPE CODE TESTS RESULT OUT OF [...] Lymph 1.91 Performed By: #### L100.0100 #### [facility] [address] [place], [address] VITAMIN D,25 HYDROXY Collected: 12/22/2017 Status: F Source: [place] 4:24 PM [facility] REPOSITORY TYPE CODE TESTS RESULT OUT OF REFERENCE UNITS RANGE LAB L506.1000 29.95-100.01 ng/mL Low Vitamin D 21.1 25-OH Result Comment: Vitamin D 25(OH) Status Range Deficiency <20 ng/mL (50nmol/L) Insuffciency 20 - 30 ng/mL (50 - 75 nmol/L) Sufficiency 30 - 100 ng/mL (75 - 250 nmol/L) Toxicity >100 ng/mL (>250 nmol/L) Performed By: #### L506.1000 #### [facility] [address] [facility] [place], [address] COMPREHENSIVE METABOLIC Collected: 12/22/2017 Status: F Source: [facility] 4:24 PM [facility] REPOSITORY TYPE CODE TESTS RESULT OUT OF [...] 6 Performed By: #### L500.4050, L501.9520 #### [facility] [address] [place], [place], [address] THYROID STIM HORMONE Collected: 12/22/2017 Status: F Source: [place] (TSH) 4:24 PM [facility] REPOSITORY TYPE CODE TESTS RESULT OUT OF RANGE REFERENCE UNITS LAB L501.9520 0.358-3.74 uIU/mL Normal TSH 0.59 Performed By: #### L500.4050, L501.9520 #### [facility] [address] [place], [address] CBC W/DIFF, AUTOMATED Collected: 09/23/2017 Status: F Source: [place] 2:43 PM [facility] REPOSITORY TYPE CODE TESTS RESULT OUT OF [...] Lymph 2.11 Performed By: #### L100.0100 #### [facility] [address] [place], [place], [address] COMPREHENSIVE METABOLIC Collected: 09/23/2017 Status: F Source: [facility] 2:43 PM [facility] REPOSITORY TYPE CODE TESTS RESULT OUT OF [...] 7 Performed By: #### L500.4050, L501.9520 #### [facility] [address] [facility] [place], [place], [address] THYROID STIM HORMONE Collected: 09/23/2017 Status: F Source: [place] (TSH) 2:43 PM [facility] REPOSITORY TYPE CODE TESTS RESULT OUT OF RANGE REFERENCE UNITS LAB L501.9520 0.358-3.74 uIU/mL Normal TSH 1.20 Performed By: #### L500.4050, L501.9520 #### [facility] [address] [facility] [place], [place], [address] VITAMIN D,25 HYDROXY Collected: 09/23/2017 Status: F Source: [place] 2:43 PM [facility] REPOSITORY TYPE CODE TESTS RESULT OUT OF REFERENCE UNITS RANGE LAB L506.1000 29.95-100.01 ng/mL Low Vitamin D 25.7 25-OH Result Comment: Vitamin D 25(OH) Status Range Deficiency <20 ng/mL (50nmol/L) Insuffciency 20 - 30 ng/mL (50 - 75 nmol/L) Sufficiency 30 - 100 ng/mL (75 - 250 nmol/L) Toxicity >100 ng/mL (>250 nmol/L) Performed By: #### L506.1000 #### [facility] [address] [place], [address] BASIC METABOLIC Collected: 09/16/2017 Status: F Source: [place] PROFILE (BMP) 3:16 PM [facility] REPOSITORY TYPE CODE TESTS RESULT OUT OF [...] GAP 7 Performed By: #### L500.2500 #### [facility] [address] [place], [address] Observed: 09/08/2017 Status: F Source: BONITA CULTURE, URINE 11:55 AM [facility] REPOSITORY Urine Culture ORGANISM 1: Presumptive E. coli [place] Count >100,000 Presumptive E. coli: REACTION Amoxacillin/Clavulanic [...] <=20 S (NF) indicates non-formulary drug at [facility]. Approval by Infectious Disease Specialist required before non-formulary drugs may be ordered and/or dispensed. Performed By: #### M100.0650 #### [facility] [address] [place], [address] MODIFIED BARIUM Observed: 09/03/2017 Status: F Source: [place] SWALLOW STUDY 2:47 PM [facility] REPOSITORY [facility] Speech Pathology [address] [facility] [place] [address] Modified Barium Swallow Study MR#: [id number] Acct: [id number] Name: YADI LARSEN Rep #: [id number] : 1945 71 From: RONY Escamilla M.A.Y-INFORMATION SERVICES TECH PRIMARY / SECONDARY DIAGNOSIS: dysphagia (R13.10) REFERRING [...] 1447 <Electronically signed by Rashi Brasher M.A., CFY-INFORMATION SERVICES TECH> Date Rashi Brasher M.A., CFY-INFORMATION SERVICES TECH Co-Signature Required for all Medicare patients Date/Time Co-Signature CC: SWALLOWING FUNCTION Observed: 09/03/2017 Status: F Source: [place] W/VIDEO 1:18 PM [facility] REPOSITORY [facility] Imaging Services [address] [place] [address] Swallowing Function w/Video MR#: [id number] Acct: [id number] Name: YADI LARSEN Rep #: [id number] : 1945 F 71 From: Tyson Lim MD PCP: Bakari Ware MD, Chi Status: REG CLI Study: Swallowing Function w/Video Date of Exam: 09/03/17 Exam# [id number] Ordering Dr: Bakari Ware MD STUDY: SWALLOWING [...] Tyson Lim MD at 15:46 EST Tel [phone], Service support , CC: Bakari Ware MD Diving Fisher: Signed BASIC METABOLIC Collected: 09/01/2017 Status: F Source: [place] PROFILE (BMP) 2:02 PM [facility] REPOSITORY TYPE CODE TESTS RESULT OUT OF [...] GAP 10 Performed By: #### L500.2500 #### [facility] [address] [place], [address] VENOUS DUPLEX LOWER Observed: 08/25/2017 Status: F Source: [place] EXTREMITY 6:55 PM [facility] REPOSITORY [facility] Cardiovascular Services [address] [place] [address] Venous Duplex US - Dean Extrem 08/25/17 1454 MR#: [id number] Acct: [id number] Name: YADI LARSEN Rep #: [id number] : 1945 71 From: Luiz Simon MD [...] Date Dictated: 08/25/17 1454 Date Transcribed: 08/25/171853 Diving Fisher: Signed NCS AND/OR EMG Observed: 08/18/2017 Status: F Source: [place] PATIENT 11:23 AM [facility] REPOSITORY [facility] Pulmonary Services/Neurology [address] [facility] [place] [address] MR#: [id number] Acct: [id number] Name: YADI LARSEN Rep #: [id number] : 1945 71 From: Musa Llamas MD Referring Dr: Becky Burrows NP Status: REG CLI Ordering Dr: Date: Location: [facility] Sex: F C NCS and/or EMG [...] Date Dictated: 08/18/17 1119 Date Transcribed: 08/18/171118 Diving Fisher: MAMTA Signed ALLERGIES ALLERGIES DATE TYPE / CODE NAME / CODE REACTION SEVERITY SOURCE 06/08/2018 Drug promethazine Nausea Unknown [place] Allergy/416 HCl/[id number]([facility] 033474([facility]) Repository ENCOUNTERS ENCOUNTERS ADMIT/DISCHARGE ACCOUNT ADMITTING ENCOUNTER LOCATION SOURCE NUMBER CLASS 08/04/2018 [id number] Ambulatory [place] 9 [facility] ing:POLAB3 Repository 07/13/2018 [id number] Ambulatory [place] 0 [facility] ing:PSN Repository 07/07/2018 [id number] Ambulatory [place] 3 [facility] ing:POLAB3 Repository 06/29/2018 [id number] Ambulatory [place] 5 [facility] ing:POLAB3 Repository 06/22/2018/ [id number] Ambulatory [place] 8 5 [facility] ing:SDCRoom: Repository AC09 06/10/2018/ [id number] [place], Inpatient [place] 8 7 [place] Encounter [facility] ing:RURoom: Repository [id number]: 1 06/10/2018 [id number] Muriel, Ambulatory BMSBuilding:B [place] 8 Musa MS[facility] Repository 06/09/2018 [id number] Ambulatory BMSBuilding:W [place] 8 [facility] Repository 06/08/2018/ [id number] [place], Ambulatory [place] 8 6 Rolando F [facility] Hospital ing:PCURoom: Repository [id number]: 1 06/08/2018 [id number] [place], Ambulatory BMSBuilding:B [place] 2 Rolando Christina MS.[facility] Repository 06/08/2018 [id number] [place], Ambulatory BMSBuilding:B [place] 5 Rolando Christina [facility] Repository 06/08/2018 [id number] [place], Ambulatory BMSBuilding:B [place] 7 Rolando Christina [facility] Repository 06/08/2018/ [id number] Ambulatory BMSBuilding:W [place] 8 2 [facility] Repository 06/08/2018/ [id number] Ambulatory [place] 8 0 [facility] Hospital ing:SDCRoom: Repository AC09 05/27/2018 [id number] Ambulatory [place] 7 [facility] Hospital ing:LABSPEC Repository 04/19/2018 [id number] [facility]ulatory [place] 6 [facility] ing[facility]LABSPEC Repository 04/14/2018 [id number] Ambulatory [place] [facility] ing:RAD Repository 04/08/2018 [id number] Ambulatory [place] 8 [facility] ing:CT Repository 12/22/2017 [id number] Ambulatory [place] 8 [facility] ing:POLAB3 Repository 09/23/2017 [id number] [place] 3 [facility] ing:POLAB3 Repository 09/16/2017 [id number] Amb[place] 0 [facility] ing:POLAB3 Repository 09/08/2017 [id number] Ambulatory [place] 9 [facility] ing:LAB.FUTUR Repository E 09/03/2017 [id number] Ambulatory [place] 6 [facility] ing:RAD Repository 09/01/2017 [id number] Ambulatory [place] 7 [facility] ing:POLAB3 Repository 08/25/2017 [id number] Ambulatory [place] 0 [facility] ing:CVS Repository 08/18/2017 [id number] Ambulatory [place] 9 [facility] ing:PSN Repository PAYERS PAYERS ENCOUNTER GUARANTOR PAYER SUBSCRIBER SOURCE 08/04/2018 YADI S Primary YADI S [place] [id number] [facility]ENDOB: Community [place] [id number] [place] Number[place] Repository [address]Duj: 330 [id number] [phone] (HP) Date:5933-01-58PN [address] [place] [address] 41142JK: 08/04/2018 Secondary NOT GIVENUNK [place] Insurance:SELF PAY [facility] Number: Effective Repository Date:2018-07-14 07/13/2018 YADI S Primary YADI S [place] [id number] Insurance:[facility] C[facility] KARVONENDOB: Community [place] MED[place] [id number] [place] Number: Repository [address]Udp: 330 [id number] [phone] () Date:3416-05-45DT [address] [place] [address] 35475DC: 07/13/2018 Secondary NOT GIVENUNK [place] Insurance:SELF PAY [facility] Number: Effective Repository Date:2018-04-05 07/07/2018 YADI S Primary YADI S [place] [id number] Insurance:[facility] CARE KARVONENDOB: Community [place] MED[place] [id number] [place] Number: Repository 198[address]Zxn: 330 [id number] [phone] (HP) Date:8271-29-79XP [address] [place] [address] 84219YW: 07/07/2018 Secondary NOT GIVENUNK [place] Insurance:SELF PAY [facility] Number: Effective Repository Date:2018-07-07 06/29/2018 YADI S Primary YADI S [place] [id number] Insurance:[employer] CARE KARVONENDOB: Community [place] MEDICARE[place] [id number] Number: Repository [address]Ngn: 330 [id number] [phone] () Date:0774-07-84MW [address] [place] [address] 16854OI: 06/29/2018 Secondary NOT GIVENUNK [place] Insurance:SELF PAY [facility] Number: Effective Repository Date:2018-06-29 06/22/2018 YADI S Primary YADI S [place] [id number] Insurance:[facility] CARE KARVONENDOB: Community [place] MED[place]ARE[place] [id number] Number: Repository [address]Got: 330 [id number] [phone] () Date:0540-70-02TJ [address] [place] [address] 66720CN: 06/22/2018 Secondary NOT GIVENUNK [place] Insurance:SELF PAY [facility] Number: Effective Repository Date:2018-04-15 06/10/2018 YADI S Primary YADI S [place] [id number] Insurance:[facility] CARE KARVONENDOB: Community [place] MED[place]ARE[place] [id number] Number: Repository [address]Hec: 330 [id number] [phone] (HP) Date:1991-43-07GN [address] [place] [address] 01991ZJ: 06/10/2018 Secondary NOT GIVENUNK [place] Insurance:SELF PAY [facility] Number: Effective Repository Date:2018-06-10 06/10/2018 YADI S Primary YADI S [place] [id number] Insurance:[facility] CARE KARVONENDOB: Community [place] MED[place]ARE[place] [id number] [place], [place] Number: Repository [address]Alm: (330) [id number] [phone] (HP) Date:6870-70-28ZC [address]UZ[place], [place] [address]RC: 06/10/2018 Secondary NOT GIVENUNK [place] Insurance:SELF PAY [facility] Number: Effective Repository Date:2018-06-10 06/09/2018 YADI S Primary YADI S [place] [id number] Insurance:[employer] CARE KARVONENDOB: Community [place] MEDICARE[place] [id number] [place], [place] Number: Repository [address]Xui: (330) [id number] [phone] (HP) Date:0570-48-42DP [address] HOSPITALJOSUEsanta [place], [place] [address]YN: 06/09/2018 Secondary NOT GIVENUNK [place] Insurance:SELF PAY [facility] Number: Effective Repository Date:2018-06-09 06/08/2018 YADI S Primary YADI S [place] [id number] Insurance:[facility] CARE KARVONENDOB: Community [place] MED[place]ARE[place] [id number] [place], [place] Number: Repository [address]Olv: (330) [id number] [phone] (HP) Date:8104-80-05SD [address] HOSPITALJOS[place] [address]BQ: 06/08/2018 Secondary NOT GIVENUNK [place] Insurance:SELF PAY [facility] Number: Effective Repository Date:2018-06-08 06/08/2018 YADI S Primary YADI S [place] [id number] Insurance:SUM[facility] CARE KARVONENDOB: Community [place] MEDICARE[place] [id number] [place] Number: Repository [address]Wwp: (330) [id number] [phone] (HP) Date:1767-22-68MK [address] [place] [address] 89599ZI: 06/08/2018 Secondary NOT GIVENUNK [place] Insurance:SELF PAY [facility] Number: Effective Repository Date:2018-06-08 06/08/2018 YADI S Primary YADI S [place] [id number] Insurance:SUM[facility] CARE KARVONENDOB: Community [place] MEDICARE[place] [id number] [place], [place] Number: Repository [address]Lbl: 330 [id number] [phone] () Date:3819-48-72QV [address] [place] [address] 46453IC: 06/08/2018 Secondary NOT GIVENUNK [place] Insurance:SELF PAY [facility] Number: Effective Repository Date:2018-06-08 06/08/2018 YADI S Primary YADI S [place] [id number] Insurance:[facility] CARE KARVONENDOB: Community [place]ARE[place] [id number] Park, [place] Number: Repository [address]Jmb: 330 [id number] [phone] () Date:3660-59-61KY [address] [place] [address] 81439SF: 06/08/2018 Secondary NOT GIVENUNK [place] Insurance:SELF PAY [facility] Number: Effective Repository Date:2018-06-08 06/08/2018 YADI S Primary YADI S [place] [id number] Insurance:[employer] CARE KARVONENDOB: Community [place] MEDICARE[place] [id number] Park, [place] Number: Repository [address]Uby: (330 [id number] [phone] () Date:7954-46-91AZ [address] [place] [address] 47307OD: 06/08/2018 Secondary NOT GIVENUNK [place] Insurance:SELF PAY [facility] Number: Effective Repository Date:2018-06-08 06/08/2018 YADI S Primary YADI S [place] [id number] Insurance:SUM[facility] CARE KARVONENDOB: Community [place] MEDICARE[place] [id number] Park, [place] Number: Repository [address]Zgb: (330 [id number] [phone] (HP) Date:7983-31-20PI [address] [place] [address] 66192WT: 06/08/2018 Secondary NOT GIVENUNK [place] Insurance:SELF PAY [facility] Number: Effective Repository Date:2018-04-15 05/27/2018 YADI S Primary YADI S [place] [id number] Insurance:SUMMA CARE KARVONENDOB: Community [place] MEDICARE[place] [id number] Number: Repository [address]Hdj: (330 [id number] [phone]) Date:5800-20-59DA [address] [place] [address] 50946FF: 05/27/2018 Secondary NOT GIVENUNK [place] Insurance:SELF PAY [facility] Number: Effective Repository Date:2018-05-27 04/19/2018 YADI S Primary YADI S [place] [id number] Insurance:SUMMA CARE KARVONENDOB: Community [place] MEDICARE[place] [id number] [place], [place] Number: Repository [address]Egz: (330) [id number] [phone] () Date:1639-48-86ZI [address] [address]OP: 04/19/2018 Secondary NOT GIVENUNK [place] Insurance:SELF PAY [facility] Number: Effective Repository Date:2018-04-19 04/14/2018 YADI S Primary YADI S [place] [id number] Insurance:SUMMA CARE KARVONENDOB: Community [place] MEDICAREPolicy [id number] [place] Number: Repository [address]Qcl: (330 [id number] [phone] (HP) Date:2488-60-06RZ [address] [place] [address] 25340HS: 04/14/2018 Secondary NOT GIVENUNK [place] Insurance:SELF PAY [facility] Number: Effective Repository Date:2018-04-14 04/08/2018 YADI S Primary YADI S [place] [id number] Insurance:SUMMA CARE KARVONENDOB: Community [place] MEDICAREPolicy [id number] [place] Number: Repository [address]Esn: (330 [id number] [phone] (HP) Date:1583-15-98YI [address] HOSPITALJOSUE[place] [address]DH: 04/08/2018 Secondary NOT GIVENUNK [place] Insurance:SELF PAY [facility] Number: Effective Repository Date:2018-04-05 12/22/2017 Yadi S Primary Yadi S [place] [id number] Insurance:[employer] CARE KarvonenDOB: Community [place] MEDICAREPolicy [id number] [place] Number: Repository [address]Hpt: (330 [id number] [phone] (HP) Date:5003-88-06HM [address] [place] [address] 69761CS: 12/22/2017 Secondary NOT GIVENUNK [place] Insurance:SELF PAY [facility] Number: Effective Repository Date:2017-12-22 09/23/2017 Yadi S Primary Yadi S [place] [id number] Insurance:[employer] CARE KarvonenDOB: Community [place] MEDICARE[place] [id number] Number: Repository [address]Iuf: (330 [id number] [phone] (HP) Date:7892-29-63XX [address] [place] [address] 54344XF: 09/23/2017 Secondary NOT GIVENUNK [place] Insurance:SELF PAY [facility] Number: Effective Repository Date:2017-09-23 09/16/2017 Yadi S Primary Yadi S [place] [id number] Insurance:SUM[employer] CARE KarvonenDOB: Community [place] MEDICAREPolicy [id number] [place] Number: Repository [address]Spb: (330 [id number] [phone] (HP) Date:9172-47-54TL [address]TONs[place], [place] [address]IR: 09/16/2017 Secondary NOT GIVENUNK [place] Insurance:SELF PAY [facility] Number: Effective Repository Date:2017-09-16 09/08/2017 Yadi S Primary Yadi S [place] [id number] Insurance:SUMMA CARE KarvonenDOB: Community [place] MEDICAREPolicy [id number] [place] Number: Repository [address]Wkn: (330 [id number] [phone] (HP) Date:4073-25-39OC [address] HOSPITALJ[place] [address]RY: 09/08/2017 Secondary NOT GIVENUNK [place] Insurance:SELF PAY [facility] Number: Effective Repository Date:2017-08-16 09/03/2017 Yadi S Primary Yadi S [place] [id number] Insurance:SUMMA CARE KarvonenDOB: Community [place] MEDICAREPolicy [id number] [place] Number: Repository [address]Vfh: (330 [id number] [phone] () Date:6854-10-55PC [address] [facility]ENTER[facility] [address]NX: 09/03/2017 Secondary NOT GIVENUNK [place] Insurance:SELF PAY [facility] Number: Effective Repository Date:2017-08-25 09/01/2017 Yadi S Primary Yadi S [place] [id number] Insurance:SUMMA CARE KarvonenDOB: Community [place] MEDICARE[place] [id number] [place] Number: Repository [address]Oih: 330 [id number] [phone] (HP) Date:8341-36-75JD [address] [facility] CENTERJ[place] [address]QN: 09/01/2017 Secondary NOT GIVENUNK [place] Insurance:SELF PAY [facility] Number: Effective Repository Date:2017-09-01 08/25/2017 Yadi S Primary Yadi S [place] [id number] Insurance:[employer] CARE KarvonenDOB: Community [place] MEDICAREPolicy [id number] [place] Number: Repository [address]Dap: 330 [id number] [phone] () Date:0452-64-59VH [address] [facility]ENTER[facility] [address]RN: 08/25/2017 Secondary NOT GIVENUNK [place] Insurance:SELF PAY [facility] Number: Effective Repository Date:2017-08-25 08/18/2017 Yadi S Primary Yadi S [place] [id number] Insurance:[facility] TrinanDOB: Community [place] MEDICAREPolicy [id number] [place] Number: Repository [address]Xjc: 330 [id number] [phone] () Date:3822-34-63AM [address], [place] [address]LK: 08/18/2017 Secondary NOT GIVENUNK [place] Insurance:SELF PAY [facility] Number: Effective Repository Date:2017-06-23
== END ==
PROVIDERS: Family Provider Family Medicine Geriatric Medicine; PCP Family Medicine Geriatric Medicine; Visit Provider Family Medicine Geriatric Medicine
DX: N39.0 Urinary tract infection, site not specified (principal); R06.02 Shortness of breath
CPT/HCPCS: 36415; 83880; 87086; 87088; 87186

== ENCOUNTER → 2018-07-07 15:48 | Outpatient (CLI) | payer MEDICARE, SELFPAY ==
[2018-06-22 06:44] VITALS: BMI 37.0
[2018-07-07 17:05] LABS: Absolute Lymphocyte Count 2.21 X10^3/ul (0.83-4.51); Absolute Neutrophil Count 4.2 X10^3/uL (2.0-7.7); Basophil# 0.01 X10^3/uL; Basophil% 0.1 % (0-1); Eosinophil# 0.26 X10^3/uL; Eosinophils% 3.6 % (0-5); Hematocrit 39.8 % (37-47); Hemoglobin 13.1 g/dl (12.0-15.0); Lymphocyte # 2.21 X10^3/ul (4.0); Lymphocyte % 30.9 % (19-41); Mean Corp Hgb Conc 32.9 g/gl (32-36); Mean Corpuscular Hgb 30.4 pg (27.0-32.0); Mean Corpuscular Volume 92.3 fL (81-99); Mean Platelet Vol. 11.5 fl (6.2-12.0); Monocyte# 0.42 X10^3/uL; Monocyte% 5.9 % (0-10); Neutrophil # 4.23 X10^3/uL (2.7-7.7); Neutrophil % 59.2 % (47-70); Platelet Count 200 K/mm3 (150-450); RBC Distribution Width CV 13.4 % (11.6-14.6); RBC Distribution Width SD 44.4 fl (35.1-43.9); Red Blood Count 4.31 M/mm3 (4.2-5.4); White Blood Count 7.2 K/mm3 (4.4-11.0)
[2018-07-07 17:20] LABS: POSITIVE COUNT NO; POSITIVE DIFFERENTIAL NO; POSITIVE MORPHOLOGY NO; Vitamin D,25 Hydroxy 29.3 ng/mL (29.95-100.01)
[2018-07-07 17:26] LABS: ALB/GLOB Ratio 0.8 RATIO (0.9-2.4); AST(SGOT) 19 U/L (15-37); Alanine Aminotransfer ALT/SGPT 26 U/L (13-56); Albumin, Serum 3.2 g/dL (3.2-5.0); Alkaline Phosphatase 56 U/L (45-117); Anion Gap 8 (5-15); BUN 28 mg/dL (7-18); BUN/Creat Ratio 37.3 RATIO (10-20); Calcium,Total 8.6 mg/dL (8.5-10.1); Chloride 104 mmol/L (98-107); Creatinine, Serum 0.75 mg/dL (0.55-1.02); EST Glomerular Filtration Rate 81 mL/min (>60); Est Glom Filt Rate - Afr Amer 98 mL/min (>60); Globulin 3.9 g/dL (2.2-4.2); Glucose 204 mg/dL (74-106); Potassium 3.3 mmol/L (3.5-5.1); Protein, Total 7.1 g/dL (6.4-8.2); Sodium Level 140 mmol/L (136-145); Thyroid Stim Hormone (TSH) 0.59 uIU/mL (0.358-3.74)
== END ==
PROVIDERS: Family Provider Family Medicine Geriatric Medicine; PCP Family Medicine Geriatric Medicine; Visit Provider Family Medicine Geriatric Medicine
DX: E11.9 Type 2 diabetes mellitus without complications (principal); E55.9 Vitamin D deficiency, unspecified; I10 Essential (primary) hypertension
CPT/HCPCS: 36415; 80053; 82306; 84443; 85025

== ENCOUNTER → 2018-07-13 12:39 | Outpatient (CLI) | payer MEDICARE, SELFPAY ==
[2018-06-22 06:44] VITALS: BMI 37.0
--- NOTE | 2018-07-13 14:05 | NEURO ---
NCS and/or EMG Patient Report Ordering Doctor: Bakari Ware Chi DATE OF SERVICE: 07/13/18 Yadi Larsen is a 72-year-old female presents for electrodiagnostic testing of the lower limbs. She reports pain and numbness primarily in the left leg. Due to some excessive edema and poor tolerance for the exam, only the left lower limb was tested on today's visit. Electrodiagnostic findings: The left peroneal motor nerve demonstrates normal distal latency with reduced amplitude and borderline reduced conduction velocity. Normal left tibial motor response. Tibial and peroneal F waves within normal limits. Absent sural and superficial peroneal latency prolonged left medial plantar latency. Needle EMG testing revealed no evidence of denervation A muscles tested, including the left lumbar paraspinals. Electrodiagnostic impression: This is an abnormal, though limited study in the left lower limb 1. Due to excessive peripheral edema, sensory responses could not be properly obtained. This is likely due to the exams limitations. Needle EMG testing was conducted and no evidence of denervation was noted in any muscles tested. No electrodiagnostic evidence is noted for lumbosacral radiculopathy, specifically on the left side. A more accurate assessment regarding peripheral neuropathy can likely be done once her edema has resolved. If there are any further questions, please do not hesitate to contact me.
== END ==
PROVIDERS: Family Provider Family Medicine Geriatric Medicine; PCP Family Medicine Geriatric Medicine; Referring Provider Family Medicine Geriatric Medicine; Visit Provider Family Medicine Geriatric Medicine
DX: R20.2 Paresthesia of skin (principal)
CPT/HCPCS: 95886; 95911

== ENCOUNTER → 2018-08-04 13:48 | Outpatient (CLI) | payer MEDICARE, SELFPAY ==
[2018-06-22 06:44] VITALS: BMI 37.0
[2018-08-04 14:05] LABS: Absolute Lymphocyte Count 2.16 X10^3/ul (0.83-4.51); Absolute Neutrophil Count 4.6 X10^3/uL (2.0-7.7); Basophil# 0.02 X10^3/uL; Basophil% 0.3 % (0-1); Eosinophil# 0.18 X10^3/uL; Eosinophils% 2.4 % (0-5); Hematocrit 41.7 % (37-47); Hemoglobin 13.5 g/dl (12.0-15.0); Lymphocyte # 2.16 X10^3/ul (4.0); Mean Corp Hgb Conc 32.4 g/gl (32-36); Mean Corpuscular Volume 92.7 fL (81-99); Mean Platelet Vol. 10.9 fl (6.2-12.0); Monocyte# 0.46 X10^3/uL; Monocyte% 6.2 % (0-10); Neutrophil # 4.61 X10^3/uL (2.7-7.7); Neutrophil % 61.8 % (47-70); Platelet Count 200 K/mm3 (150-450); RBC Distribution Width CV 13.3 % (11.6-14.6); RBC Distribution Width SD 44.8 fl (35.1-43.9); White Blood Count 7.5 K/mm3 (4.4-11.0)
[2018-08-04 14:10] LABS: POSITIVE COUNT NO; POSITIVE DIFFERENTIAL NO; POSITIVE MORPHOLOGY NO
[2018-08-04 14:27] LABS: ALB/GLOB Ratio 0.9 RATIO (0.9-2.4); AST(SGOT) 19 U/L (15-37); Alanine Aminotransfer ALT/SGPT 30 U/L (13-56); Albumin, Serum 3.4 g/dL (3.2-5.0); Alkaline Phosphatase 52 U/L (45-117); Anion Gap 9 (5-15); BUN 29 mg/dL (7-18); BUN/Creat Ratio 35.7 RATIO (10-20); Calcium,Total 9.1 mg/dL (8.5-10.1); Chloride 108 mmol/L (98-107); Creatinine, Serum 0.81 mg/dL (0.55-1.02); EST Glomerular Filtration Rate 73 mL/min (>60); Est Glom Filt Rate - Afr Amer 89 mL/min (>60); Globulin 3.9 g/dL (2.2-4.2); Glucose 147 mg/dL (74-106); Potassium 4.3 mmol/L (3.5-5.1); Protein, Total 7.3 g/dL (6.4-8.2); Sodium Level 144 mmol/L (136-145); Thyroid Stim Hormone (TSH) 0.83 uIU/mL (0.358-3.74)
== END ==
PROVIDERS: Family Provider Family Medicine Geriatric Medicine; PCP Family Medicine Geriatric Medicine; Visit Provider Family Medicine Geriatric Medicine
DX: E87.6 Hypokalemia (principal); D64.9 Anemia, unspecified; R53.83 Other fatigue
CPT/HCPCS: 36415; 80053; 84443; 85025

== ENCOUNTER → 2018-08-12 16:17 | Outpatient (CLI) | payer MEDICARE, SELFPAY ==
[2018-06-22 06:44] VITALS: BMI 37.0
== END ==
PROVIDERS: Family Provider Family Medicine Geriatric Medicine; PCP Family Medicine Geriatric Medicine; Referring Provider Family Medicine Geriatric Medicine; Visit Provider Family Medicine Geriatric Medicine
DX: F05 Delirium due to known physiological condition (principal); N39.0 Urinary tract infection, site not specified
CPT/HCPCS: 87077; 87086; 87088; 87186

== ENCOUNTER → 2018-08-17 14:50 | Outpatient (CLI) | payer MEDICARE, SELFPAY ==
[2018-06-22 06:44] VITALS: BMI 37.0
[2018-08-17 17:55] LABS: ALB/GLOB Ratio 0.8 RATIO (0.9-2.4); AST(SGOT) 20 U/L (15-37); Alanine Aminotransfer ALT/SGPT 33 U/L (13-56); Albumin, Serum 3.3 g/dL (3.2-5.0); Alkaline Phosphatase 52 U/L (45-117); Anion Gap 8 (5-15); BUN 23 mg/dL (7-18); BUN/Creat Ratio 28.7 RATIO (10-20); CRP 3.88 mg/L (0.0-3.0); Calcium,Total 8.9 mg/dL (8.5-10.1); Chloride 106 mmol/L (98-107); EST Glomerular Filtration Rate 75 mL/min (>60); Est Glom Filt Rate - Afr Amer 90 mL/min (>60); Glucose 227 mg/dL (74-106); Potassium 3.4 mmol/L (3.5-5.1); Protein, Total 7.3 g/dL (6.4-8.2); Rheumatoid Factor < 10.0 IU/mL (<15); Sodium Level 142 mmol/L (136-145)
[2018-08-17 17:59] LABS: Absolute Lymphocyte Count 1.76 X10^3/ul (0.83-4.51); Absolute Neutrophil Count 4.4 X10^3/uL (2.0-7.7); Basophil# 0.02 X10^3/uL; Basophil% 0.3 % (0-1); Eosinophil# 0.12 X10^3/uL; Eosinophils% 1.8 % (0-5); Hematocrit 41.8 % (37-47); Hemoglobin 13.3 g/dl (12.0-15.0); Lymphocyte # 1.76 X10^3/ul (4.0); Mean Corp Hgb Conc 31.8 g/gl (32-36); Mean Corpuscular Hgb 29.6 pg (27.0-32.0); Mean Corpuscular Volume 92.9 fL (81-99); Mean Platelet Vol. 11.4 fl (6.2-12.0); Monocyte# 0.45 X10^3/uL; Monocyte% 6.7 % (0-10); Neutrophil % 65.1 % (47-70); Platelet Count 224 K/mm3 (150-450); RBC Distribution Width CV 13.4 % (11.6-14.6); RBC Distribution Width SD 44.1 fl (35.1-43.9); White Blood Count 6.8 K/mm3 (4.4-11.0)
[2018-08-17 18:27] LABS: POSITIVE COUNT NO; POSITIVE DIFFERENTIAL NO; POSITIVE MORPHOLOGY NO
[2018-08-17 18:59] LABS: Erythrocyte Sedimentation Rate 19 mm/hr (0-30)
[2018-08-19 16:36] LABS: ANTINUCLEAR ANTIBODIES DIRECT Negative (Negative)
[2018-08-20 11:12] LABS: CCP IgG Antibodies 38 units (0-19); HEPATITIS B SURFACE AG Negative (Negative); Hep B Surface Antibodies Non Reactive (.); Hep C Antibodies <0.1 s/co ratio (0.0-0.9)
== END ==
PROVIDERS: Family Provider Family Medicine Geriatric Medicine; PCP Family Medicine Geriatric Medicine; Referring Provider Internal Medicine Rheumatology; Visit Provider Internal Medicine Rheumatology
DX: M06.4 Inflammatory polyarthropathy (principal); M47.897 Other spondylosis, lumbosacral region; I69.30 Unspecified sequelae of cerebral infarction; I10 Essential (primary) hypertension; E11.42 Type 2 diabetes mellitus with diabetic polyneuropathy; G30.9 Alzheimer's disease, unspecified; E78.5 Hyperlipidemia, unspecified; F32.89 Other specified depressive episodes; R32 Unspecified urinary incontinence
CPT/HCPCS: 36415; 80053; 85025; 85652; 86038; 86140; 86200; 86431; 86706; 86803; 87340

== ENCOUNTER → 2018-09-07 12:15 | Outpatient (CLI) | payer MEDICARE, SELFPAY ==
[2018-06-22 06:44] VITALS: BMI 37.0
[2018-09-07 13:00] LABS: Absolute Lymphocyte Count 1.91 X10^3/ul (0.83-4.51); Absolute Neutrophil Count 3.8 X10^3/uL (2.0-7.7); Basophil# 0.03 X10^3/uL; Basophil% 0.5 % (0-1); Eosinophil# 0.19 X10^3/uL; Hematocrit 42.7 % (37-47); Hemoglobin 13.6 g/dl (12.0-15.0); Lymphocyte # 1.91 X10^3/ul (4.0); Lymphocyte % 30.6 % (19-41); Mean Corp Hgb Conc 31.9 g/gl (32-36); Mean Corpuscular Hgb 29.5 pg (27.0-32.0); Mean Corpuscular Volume 92.6 fL (81-99); Mean Platelet Vol. 11.4 fl (6.2-12.0); Monocyte# 0.32 X10^3/uL; Monocyte% 5.1 % (0-10); Neutrophil # 3.78 X10^3/uL (2.7-7.7); Neutrophil % 60.6 % (47-70); Platelet Count 255 K/mm3 (150-450); RBC Distribution Width CV 13.5 % (11.6-14.6); RBC Distribution Width SD 45.5 fl (35.1-43.9); Red Blood Count 4.61 M/mm3 (4.2-5.4); White Blood Count 6.2 K/mm3 (4.4-11.0)
[2018-09-07 13:01] LABS: POSITIVE COUNT NO; POSITIVE DIFFERENTIAL NO; POSITIVE MORPHOLOGY NO
--- NOTE | 2018-09-07 13:11 | RAD_ITS ---
STUDY: X-RAY - ABDOMEN/PELVIS REASON FOR EXAM: Female, 72 years old. Diarrhea TECHNIQUE: AP supine and upright views of the abdomen and pelvis. COMPARISON: None. FINDINGS: Normal visualized lung bases. There is an unremarkable bowel gas pattern. There is no demonstrated free abdominal air. The visualized liver, spleen and kidneys are grossly normal in size and morphology. Normal soft tissue structures. There are diffuse degenerative changes of the visualized lumbar spine. RAD/[employer]d [employer] Decub and/or Erect IMPRESSION: No definite acute abnormality. Electronically Signed: Wolf Buckner MD at 17:20 EST , Service support ,
[2018-09-07 13:42] LABS: ALB/GLOB Ratio 0.8 RATIO (0.9-2.4); AST(SGOT) 24 U/L (15-37); Alanine Aminotransfer ALT/SGPT 36 U/L (13-56); Albumin, Serum 3.4 g/dL (3.2-5.0); Alkaline Phosphatase 52 U/L (45-117); Anion Gap 8 (5-15); BUN 18 mg/dL (7-18); Calcium,Total 8.5 mg/dL (8.5-10.1); Chloride 104 mmol/L (98-107); Creatinine, Serum 0.72 mg/dL (0.55-1.02); EST Glomerular Filtration Rate 84 mL/min (>60); Est Glom Filt Rate - Afr Amer 102 mL/min (>60); Globulin 4.3 g/dL (2.2-4.2); Glucose 252 mg/dL (74-106); Potassium 4.2 mmol/L (3.5-5.1); Protein, Total 7.7 g/dL (6.4-8.2); Sodium Level 137 mmol/L (136-145)
== END ==
LOC: POLAB3 12:16 → RAD 13:09
PROVIDERS: Family Provider Family Medicine Geriatric Medicine; PCP Family Medicine Geriatric Medicine; Referring Provider Family Medicine Geriatric Medicine; Visit Provider Family Medicine Geriatric Medicine
DX: E11.9 Type 2 diabetes mellitus without complications (principal); N39.0 Urinary tract infection, site not specified; R19.7 Diarrhea, unspecified
CPT/HCPCS: 36415; 74019; 80053; 82274; 84443; 85025; 87086; 87088; 87177; 87209; 87493

== ENCOUNTER → 2018-09-22 12:16 | Outpatient (CLI) | payer MEDICARE, SELFPAY ==
[2018-09-13 14:24] VITALS: BMI 35.9
--- NOTE | 2018-09-22 12:34 | STEWCON_ITS ---
Reason For Study: PER OP Stress Results Protocol: Dobutamine with definity Maximum Predicted HR: 148 bpm Target HR: 126 bpm % Maximum Predicted HR: 88 % DurationHeart Rate Stage (mm:ss) (bpm) BP Dose Comment BASELINE 88 149/86 1CC DEFINITY STAGE 1 3:00 94 155/7110.001 CC DEFINITY STAGE 2 3:56 130 143/7220.001 CC DEFINITY RECOVERY 100 137/73 2 CC DEFINITY Stress Duration: 6:56 mm:ss Maximum Stress HR: 130 bpm Baseline Echocardiogram Findings The estimated ejection fraction is 65 %. Stress Echo Wall motion Data Resting WM Intermediate WM Stress WM Resting Wall Motion Wall Motion Stress No regional wall motion No regional wall motion abnormalities noted. abnormalities noted. EKG Data The baseline ECG displays normal sinus rhythm. The patient was titrated from 10 mcg to a maximum of 20 mcg of dobutamine during the stress. The maximum heart rate attained was 136 beats per minute. This was 91% of maximum predicted heart rate. During dobutamine infusion, there were no ST or T wave changes noted to suggest ischemia. No clinical angina was noted. Interpretation Summary The estimated ejection fraction is 65 %. Normal, adequate, dobutamine echocardiogram. Negative for ischemia by EKG and echocardiographic criteria. No anginal symptoms noted. Rare PVCs noted. Appropriate blood pressure response to dobutamine. Final LVEF is 75%. Decreased sensitivity due to poor echo windows requiring Definity enhancing agent. Test terminated due to the attainment of target heart rate. The study was technically difficult. Contrast injection was performed. Ordering Physician: Michael Wing Referring Physician: Michael Wing Performed By: Lorrie Orellana, DAVID, RVT
[2018-09-22 14:10] LABS: AST(SGOT) 33 U/L (15-37); Alanine Aminotransfer ALT/SGPT 42 U/L (13-56); Albumin, Serum 3.4 g/dL (3.2-5.0); Alkaline Phosphatase 52 U/L (45-117); Bilirubin, Direct 0.18 mg/dL (0.00-0.30); Cholesterol 106 mg/dL (200); Globulin 4.2 g/dL (2.2-4.2); High Density Lipoprotein 57 mg/dL; Protein, Total 7.6 g/dL (6.4-8.2); Triglycerides 47 mg/dL; Very Low Density Lipoprotein 9 mg/dL (5-40)
== END ==
PROVIDERS: Family Provider Family Medicine Geriatric Medicine; PCP Family Medicine Geriatric Medicine; Referring Provider Internal Medicine Cardiovascular Disease; Visit Provider Internal Medicine Cardiovascular Disease
DX: Z01.810 Encounter for preprocedural cardiovascular examination (principal); I45.10 Unspecified right bundle-branch block; I65.21 Occlusion and stenosis of right carotid artery; G81.94 Hemiplegia, unspecified affecting left nondominant side; E78.5 Hyperlipidemia, unspecified; Z86.73 Personal history of transient ischemic attack (TIA), and cerebral infarction without residual deficits
CPT/HCPCS: 36415; 80061; 80076; 93017; 93350; J7040; Q9957; A4216; C8928

== ENCOUNTER → 2018-10-18 | Outpatient (CLI) | payer MEDICARE, SELFPAY ==
[2018-09-13 14:24] VITALS: BMI 35.9
--- NOTE | 2018-10-18 12:29 | US_ITS ---
STUDY: RENAL ULTRASOUND - COMPLETE REASON FOR EXAM: Female, 72 years old. Recurrent urinary tract infection TECHNIQUE: Ultrasound evaluation of the kidneys was performed with real-time and static beltran-scale imaging. COMPARISON: None. FINDINGS: RIGHT KIDNEY: Normal location of the right kidney, which is normal in size. The right kidney measures 10.2 cm. There is a normal cortex of the right kidney. The renal cortex measures 1.6 cm. There is no right renal mass or cyst. There are no right renal calculi. There is no right hydronephrosis. DISTAL RIGHT URETER: There is non-visualization of the distal right ureter. There is no demonstrated right ureterovesical junction calculus. There is no visualized right ureteral jet. LEFT KIDNEY: Normal location of the left kidney, which is normal in size. The left kidney measures 10.2 cm. There is a normal cortex of the left kidney. The renal cortex measures 2.1 cm. There is no left renal mass or cyst. There are no left renal calculi. There is no left hydronephrosis. DISTAL LEFT URETER: There is non-visualization of the distal left ureter. There is no demonstrated left ureterovesical junction calculus. There is no visualized left ureteral jet. BLADDER: The distended urinary bladder has a volume of 80.5 ml. There is a normal wall thickness of the distended urinary bladder. There is no demonstrated mass within the urinary bladder. There are no demonstrated bladder calculi. US/Kidney and Bladder IMPRESSION: Normal ultrasound of the kidneys and urinary bladder. Electronically Signed: Jose Quang, at 22:26 EDT Tel , Service support ,
== END | disposition home or self-care (01) ==
LOC: US 12:27
PROVIDERS: Family Provider Family Medicine Geriatric Medicine; PCP Family Medicine Geriatric Medicine; Referring Provider Urology; Visit Provider Urology
DX: N39.0 Urinary tract infection, site not specified (principal)
CPT/HCPCS: 76770

== ENCOUNTER 2018-10-24 13:11 | Observation (INO) | payer MEDICARE, SELFPAY ==
[2018-09-13 14:24] VITALS: BMI 35.9
[2018-10-24] VITALS (10 sets, daily range): BP systolic 124–149; BP diastolic 68–82; PULSE 72–97; RESP 13–18; TEMP 36.7–37.4; O2SAT 92–99; BMI 35.1; BMI 33.6; BMI 33.7
--- NOTE | 2018-10-24 13:35 | RAD_ITS ---
STUDY: X-RAY CHEST REASON FOR EXAM: Female, 72 years old. Slurred speech. TECHNIQUE: Single AP portable view of the chest. COMPARISON: Comparison is made with prior study dated June 08, 2018. FINDINGS: EKG electrodes are seen. Elevation of the right hemidiaphragm. Stable calcified granulomas. Stable mild increased markings at the left lung base suggestive of the left basilar atelectasis and/or scarring. There is no demonstrated pleural abnormality. Normal size heart. Normal mediastinum and iliana. Normal visualized pulmonary arteries. There is atherosclerotic calcification of the aortic arch with tortuosity. There are diffuse degenerative changes of the visualized thoracic spine. Normal visualized ribs, clavicles, and shoulders. There is no demonstrated abnormality of the visualized soft tissue structures of the upper abdomen. RAD/Chest PA and Lateral IMPRESSION: Stable examination. No acute abnormality is seen. Electronically Signed: Tyson Lim, at 14:42 EDT , Service support ,
--- NOTE | 2018-10-24 13:35 | CT_ITS ---
STUDY: CT BRAIN WITHOUT CONTRAST REASON FOR EXAM: Female, 72 years old. Weakness. Slurred speech. RADIATION DOSAGE (If Supplied By Facility): CTDIvol = ( 44.99 ) mGy, DLP = ( 829.85 ) mGycm TECHNIQUE: Transaxial CT imaging of the brain was performed without administration of intravenous contrast material. Individualized dose optimization techniques were used for this CT. COMPARISON: Comparison is made with prior study dated June 09, 2018. FINDINGS: Normal soft tissue structures. Normal calvarium. There is mild cerebral atrophy with widening of the extra-axial spaces and ventricular dilatation. There are areas of decreased attenuation within the white matter tracts of the supratentorial brain, consistent with microvascular disease changes. Normal basal ganglia and thalami. Normal brainstem. Normal cerebellum. There is no intracranial hemorrhage. There are no findings of an acute ischemic infarction. Atherosclerotic calcification of the cavernous portions of the internal carotid arteries bilaterally. Normal visualized paranasal sinuses. CT/Brain/Head without Contrast IMPRESSION: Chronic involutional changes of the brain. Electronically Signed: Tyson Lim, at 14:41 EDT , Service support ,
[2018-10-24 13:46] LABS: Absolute Lymphocyte Count 1.87 X10^3/ul (0.83-4.51); Absolute Neutrophil Count 4.2 X10^3/uL (2.0-7.7); Basophil# 0.03 X10^3/uL; Basophil% 0.4 % (0-1); Eosinophil# 0.21 X10^3/uL; Hematocrit 39.4 % (37-47); Hemoglobin 12.8 g/dl (12.0-15.0); Lymphocyte # 1.87 X10^3/ul (4.0); Lymphocyte % 26.9 % (19-41); Mean Corp Hgb Conc 32.5 g/gl (32-36); Mean Corpuscular Hgb 29.6 pg (27.0-32.0); Mean Platelet Vol. 10.7 fl (6.2-12.0); Monocyte# 0.61 X10^3/uL; Monocyte% 8.8 % (0-10); Neutrophil # 4.22 X10^3/uL (2.7-7.7); Neutrophil % 60.8 % (47-70); POSITIVE COUNT NO; POSITIVE DIFFERENTIAL NO; POSITIVE MORPHOLOGY NO; Platelet Count 266 K/mm3 (150-450); RBC Distribution Width CV 13.6 % (11.6-14.6); RBC Distribution Width SD 44.6 fl (35.1-43.9); Red Blood Count 4.33 M/mm3 (4.2-5.4)
[2018-10-24] MEDS: 0.9% Normal Saline 1,000 ML 150 ML IV (13:46)
[2018-10-24 13:56] LABS: ALB/GLOB Ratio 0.9 RATIO (0.9-2.4); AST(SGOT) 35 U/L (15-37); Alanine Aminotransfer ALT/SGPT 52 U/L (13-56); Albumin, Serum 3.2 g/dL (3.2-5.0); Alkaline Phosphatase 51 U/L (45-117); Anion Gap 5 (5-15); BUN 37 mg/dL (7-18); BUN/Creat Ratio 23.1 RATIO (10-20); Calcium,Total 8.3 mg/dL (8.5-10.1); Chloride 107 mmol/L (98-107); EST Glomerular Filtration Rate 34 mL/min (>60); Est Glom Filt Rate - Afr Amer 41 mL/min (>60); Estimated Creatinine Clearance 26.29 ml/min; Globulin 3.7 g/dL (2.2-4.2); Glucose 127 mg/dL (74-106); Partial Thromboplast Time 27.8 Seconds (24.1-36.2); Potassium 4.5 mmol/L (3.5-5.1); Protein, Total 6.9 g/dL (6.4-8.2); Prothrombin Time (Protime)PT. 13.2 SECONDS (11.7-14.9); Sodium Level 140 mmol/L (136-145)
[2018-10-24 14:29] LABS: Mucous, Urine 0 SEEN /hpf (<or=2+); Red Blood Cells-Urine 0 SEEN /hpf (0-5); Squamous Epithelial Cells - UA 0 SEEN /hpf (5-10)
[2018-10-24 14:31] LABS: Color, Urine Yellow (Yellow); Glucose, Dipstick Normal (Normal); Ketone-Dipstick Negative (Negative); Leukocyte Esterase-Dipstick 500 /ul (Negative); Nitrite-Dipstick Negative (Negative); Occult Blood-Urine Negative /ul (Negative); Protein-Dipstick Negative (Negative); Specific Gravity, Urine 1.015 (1.002-1.030); Urine Bilirubin Dipstick Negative (Negative); Urine Clarity Clear (Clear); Urine Urobilinogen Normal (Normal)
[2018-10-24 14:37] LABS: Bacteria 3+ /hpf (None Seen); White Blood Cells 5-10 SEEN /hpf (0-5)
[2018-10-24] MEDS: Ceftriaxone 1 GM/50 ML BAG IV (16:02)
--- NOTE | 2018-10-24 16:49 | HP.PCM_ITS ---
Problem List (1) Debility Status: Acute (2) Carotid stenosis, right Status: Acute Comment: Right internal carotid> 70% per CTA done 06/08/18 @ [facility] when pt admitted for CVA (3) Hyperlipidemia Status: Chronic Qualifiers: Hyperlipidemia type: unspecified Qualified Code(s): E78.5 - Hyperlipidemia, unspecified (4) Type 2 diabetes mellitus Status: Chronic Qualifiers: Diabetes mellitus snf insulin use: without terminal superintendent use Diabetes mellitus complication status: with unspecified complications Qualified Code(s): E11.8 - Type 2 diabetes mellitus with unspecified complications (5) Hypertension Status: Chronic Qualifiers: Hypertension type: essential hypertension Qualified Code(s): I10 - Essential (primary) hypertension (6) Diabetic neuropathy Status: Chronic Qualifiers: Diabetes mellitus type: type 2 Diabetes mellitus complication detail: with other neurological complication Qualified Code(s): E11.49 - Type 2 diabetes mellitus with other diabetic neurological complication (7) Depression Status: Chronic Qualifiers: Depression Type: unspecified Qualified Code(s): F32.9 - Major depressive disorder, single episode, unspecified (8) Physical debility Status: Acute (9) Obesity Status: Chronic Qualifiers: Obesity classification: adult class 2 (BMI 35 - 39.9) (10) Carotid stenosis, right Status: Acute (11) Tobacco abuse Status: Chronic History of Present Illness Date of Admission: 10/24/18 Chief Complaint: Slurred speech. Worsening left sided weakness. New worsenig right sided weakness The patient is a 72 year old F with past medical history of CVA with left-sided residual weakness, hypertension, hyperlipidemia, right carotid artery stenosis status post CEA 2 weeks prior, ambulatory at home with a walker who comes in with a 1 day history of slurred speech and worsening left-sided weakness. Patient lives with her daughter at home and her daughter noted at 7 PM the patient had worsening left-sided weakness is was unable to use her walker. She helped the patient to get ready for bed. She woke up this morning and patient was found to have slurred speech was persistent worsening left-sided weakness. And was reported by EMS to be slightly warm to touch. Temperature taking was 100.4 F. The ED, her blood pressure was 133/82, temperature 99.3 F, heart rate was 96, respiratory rate was 18, SPO2 was 92% on room air. Admitting CBC D was unremarkable. INR is 1.0, APTT was 27.8. BMP was remarkable for BUN of 37, creatinine of 1.60. Previous creatinine was normal. Lactic acid was 1.0. UA showed clear urine, negative nitrite, 500 leukocyte esterase, WBC 5-10. Chest x-ray shows no acute abnormality. CT scan of the brain showed chronic involutional changes of the brain Past Medical History Past Medical History (Chronic Problems): Chronic Problems (Last Updated 09/13/18 @ 14:29 by Bobbi Blevins) Localized swelling of both lower legs (Chronic) Hyperlipidemia (Chronic) Type 2 diabetes mellitus (Chronic) Hypertension (Chronic) Diabetic neuropathy (Chronic) Depression (Chronic) Obesity (Chronic) CVA (cerebral infarction) (Chronic 11/2012) Tobacco abuse (Chronic) Medical History: Medical History (Last Updated 09/13/18 @ 14:29 by Bobbi Blevins) Right bundle branch block (Acute) I45.10 Per ekg 06/08/2018 Carotid stenosis, right (Acute) I65.21 Right internal carotid> 70% per CTA done 06/08/18 @ [facility] when pt admitted for CVA Localized swelling of both lower legs (Chronic) R22.43 Pre-operative cardiovascular examination (Acute) Z01.810 Hyperlipidemia (Chronic) E78.5 UTI (urinary tract infection) (Acute) N39.0 Type 2 diabetes mellitus (Chronic) E11.9 Hypertension (Chronic) I10 Diabetic neuropathy (Chronic) E11.40 Difficulty walking (Acute) R26.2 mechanical fall (Acute) Depression (Chronic) F32.9 Physical debility (Acute) R53.81 Obesity (Chronic) E66.9 CVA (cerebral infarction) (Chronic) Onset Date: 11/2012 I63.9 Tobacco abuse (Chronic) Z72.0 Weakness (Acute) R53.1 Left hemiparesis (Acute) G81.94 Confusion (Acute) R41.0 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 History of suicide attempt Z91.5 Allergies promethazine HCl [From Phenergan] Adverse Reaction (Verified 10/24/18 13:22) Nausea Home Medications: Ambulatory Orders Medication Instructions Recorded Escitalopram Oxalate [Lexapro] 20 mg PO QHS 06/14/17 Baclofen 20 mg PO TID 06/01/18 Memantine HCl 10 mg PO BID 06/08/18 Aspirin [Aspirin, Baby] 81 mg PO DAILY@0800 06/10/18 Atorvastatin Calcium [Lipitor] 40 mg PO QHS 06/10/18 Clopidogrel Bisulfate [Plavix] 75 mg PO DAILY 06/10/18 hydroxychloroquine 200 mg tablet 200 mg PO BID tab 09/08/18 metformin 500 mg tablet 500 mg PO BID 09/08/18 dulaglutide 1.5 mg/0.5 mL 1.5 mg SC FR 09/13/18 subcutaneous pen injector Amlodipine [Norvasc] 10 mg PO DAILY 10/24/18 Ascorbic Acid [Vitamin C with Sarah 500 mg PO DAILY 10/24/18 Hips] Cranberry 500 mg PO DAILY 10/24/18 Gabapentin [Neurontin] 200 mg PO TID 10/24/18 Galantamine HBr [Galantamine ER] 24 mg PO QHS 10/24/18 Hydrocodone/Acetaminophen [Walford 1 each PO PRN PRN 10/24/18 5-325 Tablet] Lisinopril/Hydrochlorothiazide 1 each PO DAILY 10/24/18 [Lisinopril-Hctz 20-12.5 mg Tab] Melatonin 10 mg PO QHS 10/24/18 Mirabegron [Myrbetriq] 25 mg PO DAILY 10/24/18 Multivit-Min/Iron/Folic/Lutein 1 tab PO DAILY 10/24/18 [Centrum Silver Women Tablet] Polyethylene Glycol 3350 [Miralax] 17 gm PO PRN PRN 10/24/18 Potassium Chloride [K-Dur] 20 meq PO DAILY 10/24/18 Surgical History: Surgical History (Last Reviewed 09/13/18 @ 14:24 by Bobbi Blevins) History of appendectomy Z90.49 History of dilation and curettage Z98.890 History of tonsillectomy and adenoidectomy Z98.890 History of tubal ligation Z98.51 Status post lumbar spine surgery for decompression of spinal cord Z98.890 Surgical History: adenoidectomy, appendectomy, - - lumbar herniated disk surgery Psychiatric History: Anxiety - Patient complains of anxiety symptoms but does not take any medications [employer]EN[employer]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 [employer]EN[employer]IFUG[employer] CASTING MACHINE TENDER history Lives: With Family Smoking Status: Former smoker Tobacco Use: Non-smoker Alcohol: None Drugs: None - *Family History Maternal Family History: Family History (Last Reviewed 09/13/18 @ 14:24 by Bobbi Blevins) Father Alcoholism Depression Son Alcoholism Depression Diabetes Hypertension Daughter Alcoholism Asthma Depression Hypertension Migraines Mother Breast cancer Depression History Items: Cancer - Breast, Hypertension, - - Depression Paternal Family History: Family History (Last Reviewed 09/13/18 @ 14:24 by Bobbi Blevins) Father Alcoholism Depression Son Alcoholism Depression Diabetes Hypertension Daughter Alcoholism Asthma Depression Hypertension Migraines Mother Breast cancer Depression History Items: - - Alcoholism, depression Sibling Family History: Family History (Last Reviewed 09/13/18 @ 14:24 by Bobbi Blevins) Father Alcoholism Depression Son Alcoholism Depression Diabetes Hypertension Daughter Alcoholism Asthma Depression Hypertension Migraines Mother Breast cancer Depression History Items: No pertinent history Review of Systems Constitutional: Reports: Anorexia, Fever, Malaise, Weakness, Fatigue. Denies: Chills, Weight Change Eyes: Denies: Blurred vision, Cataracts, Conjunctivae Inflammation, Double vision HEENT: Denies: Head Aches, Hearing Changes, Sinus Congestion, Sinus Drainage Cardiovascular: Denies: Chest Pain, Claudication, Orthopnea, Palpitations, Paroxysmal Noc. Dyspnea Respiratory: Denies: Cough, Shortness of breath at rest, Shortness of breath upon exertion, Sputum production Gastrointestinal: Denies: Abdominal Pain, Hematochezia, Nausea, Vomiting Genitourinary: Denies: Dysuria Musculoskeletal: Denies: Joint Pain, Joint stiffness, Joint swelling, Joint Tenderness Skin: Denies: Rash, Wounds Neurological: Reports: Change in Speech, Slurred speech, Focal weakness, Numbness, Tingling Psychiatric: Denies: Anxiety, Depression, Homicidal Ideations, Suicidal Ideations Hematologic/ Lymphatic: Denies: Easy Bruising, Easy Bleeding VTE Information - Inpt Only VTE Present on Admission: No VTE Pharm Prophylaxis ordered?: Yes Patient Problems: Active and Suspected Problems (Last Updated 09/13/18 @ 14:29 by Bobbi Blevins) Debility (Acute) Carotid stenosis, right (Acute) - Physical Exam General: Alert, Oriented x3, Cooperative, No apparent distress HEENT: Atraumatic, PERRLA, EOMI, Normocephalic Oral: Moist Mucosa Neck: Supple Lungs: Clear to auscultation, Normal air movement Cardiovascular: Regular rate, Regular Rhythm, Normal S1, Normal S2, No murmurs Abdomen: Bowel Sounds Present, Soft, Non Tender, Non-Distended, No Hepato- splenomegaly Extremities: No edema Skin: No rashes, No breakdown Musculoskeletal: No Tenderness to Palpation of Joints or Extremities Lymphatic: No Cervical, Supraclavicular, or Inguinal Adenopathy Neurological: Facial Droop - right sided, - - Power is 4/5 in right UE, 2/5 in LUE, 3/5 in RLE, 2/5 in LLE, increased tone in left side of body, babinski was downward in both toes. Psych/Mental Status: Normal Affect, Appropriate Vital Signs Temp Pulse Resp BP Pulse Ox 98.3 F 73 13 137/68 H 95 10/24/18 16:12 10/24/18 16:03 10/24/18 16:03 10/24/18 16:03 10/24/18 16:03 Oxygen Delivery Method Room Air Weight: 91.3 kg Body Mass Index (BMI) 35.1 Finger Stick Blood Glucose 127 Microbiology Past 72 Hours 10/24/18 16:00 Influenza Types A,B Direct FA (DEEJAY) - Final Mucosa - Nasopharyngeal Laboratory Tests Past 24 Hrs 10/24/18 10/24/18 10/24/18 13:20 13:20 13:20 WBC 7.0 RBC 4.33 Hgb 12.8 Hct 39.4 MCV 91.0 MCH 29.6 MCHC 32.5 RDW 13.6 RDW Differential 44.6 H Plt Count 266 MPV 10.7 Immature Gran % (Auto) 0.100 Neut % (Auto) 60.8 Lymph % (Auto) 26.9 Nelson % (Auto) 8.8 Eos % (Auto) 3.0 Baso % (Auto) 0.4 Absolute Neuts (auto) 4.2 Absolute Lymphs (auto) 1.87 Total Counted Not Reportable PT 13.2 INR 1.0 APTT 27.8 Sodium 140 Potassium 4.5 Chloride 107 Carbon Dioxide 28.0 Anion Gap 5 BUN 37 H Creatinine 1.60 H Estim Creat Clear Calc 26.29 Est GFR (MDRD) Af Amer 41 L Est GFR (MDRD) Non-Af 34 L BUN/Creatinine Ratio 23.1 H Glucose 127 H Lactic Acid Calcium 8.3 L Total Bilirubin 0.40 AST 35 ALT 52 Alkaline Phosphatase 51 Total Protein 6.9 Albumin 3.2 Globulin 3.7 Albumin/Globulin Ratio 0.9 Urine Color Urine Clarity Urine pH Ur Specific Cyclone Urine Protein Urine Glucose (UA) Urine Ketones Urine Occult Blood Urine Nitrite Urine Bilirubin Urine Urobilinogen Ur Leukocyte Esterase Urine RBC Urine WBC Ur Squamous Epith Cells Urine Bacteria Urine Mucus 10/24/18 10/24/18 13:20 14:25 WBC RBC Hgb Hct MCV MCH MCHC RDW RDW Differential Plt Count MPV Immature Gran % (Auto) Neut % (Auto) Lymph % (Auto) Nelson % (Auto) Eos % (Auto) Baso % (Auto) Absolute Neuts (auto) Absolute Lymphs (auto) Total Counted PT INR APTT Sodium Potassium Chloride Carbon Dioxide Anion Gap BUN Creatinine Estim Creat Clear Calc Est GFR (MDRD) Af Amer Est GFR (MDRD) Non-Af BUN/Creatinine Ratio Glucose Lactic Acid 1.0 Calcium Total Bilirubin AST ALT Alkaline Phosphatase Total Protein Albumin Globulin Albumin/Globulin Ratio Urine Color Yellow Urine Clarity Clear Urine pH 6.0 Ur Specific Cyclone 1.015 Urine Protein Negative Urine Glucose (UA) Normal Urine Ketones Negative Urine Occult Blood Negative Urine Nitrite Negative Urine Bilirubin Negative Urine Urobilinogen Normal Ur Leukocyte Esterase 500 H Urine RBC 0 SEEN Urine WBC 5-10 SEEN Ur Squamous Epith Cells 0 SEEN Urine Bacteria 3+ Urine Mucus 0 SEEN Assessment/Plan All Active Problems (Last Updated 09/13/18 @ 14:29 by Bobbi Blevins) Debility (Acute) Carotid stenosis, right (Acute) Right bundle branch block (Acute) Carotid stenosis, right (Acute) Pre-operative cardiovascular examination (Acute) UTI (urinary tract infection) (Acute) Difficulty walking (Acute) mechanical fall (Acute) Physical debility (Acute) Weakness (Acute) Left hemiparesis (Acute) Confusion (Acute) 72 year old F with past medical history of CVA with left-sided residual weakness, hypertension, hyperlipidemia, right carotid artery stenosis status post CEA 2 weeks prior, ambulatory at home with a walker who comes in with a 1 day history of slurred speech and worsening left-sided weakness. 1. Debility, slurred speech, worsening left-sided weakness, history of previous stroke, possibly acute CVA vs TIA CT scan of the head was negative Plan: Admit to PCU, stroke workup with MRI of the head, neurology consult, holding off MRA of the head and neck for now because of acute kidney injury PT, OT, speech therapy to evaluate, case management consulted to assist with discharge planning as her daughter is unable to care for the patient 2. Bilateral lower extremity weakness, worsening, history of lumbar surgery, Will get MRI of the lumbar thoracic spines without contrast, PT and OT to evaluate and treat 3. Carotid stenosis, right, status post recent CEA, on aspirin, statin, Plavix 4. Hypertension, controlled, continue on home medications - 5. Dementia, likely vascular dementia, on memantine, lexapro 6. Suspected UTI, urine was clear yellow, nitrite negative, leukocyte esterases 500, WBC was 5/10, Less likely to be UTI given 1 dose of ceftriaxone in ED, would continue to monitor Cultures taken in the ED, will recommend continuing antibiotics if patient begins to have spikes of fever 7. Type II DM, on metformin, dulaglutide, will hold both for now, continue on insulin sliding scale with Accu-Cheks 8. DVT PPx- Heparin SC Code Visit Inpatient E&M: 44529 Init Hosp L2
--- NOTE | 2018-10-24 16:51 | ED.DCSUM_ITS ---
- ER Visit Summary Date of Service: 10/24/18 Chief Complaint: Weakness and slurred speech History of Present Illness: The patient is a [address] Ware. Patient reports that she has weakness and slurred speech that began yesterday. The weakness is in her legs bilaterally. She reports that she is also had a fever. She has a sore throat that is 3 out of 10 severity. She has a cough productive of white sputum without blood. She is been nauseated but no vomiting. No abdominal pain or diarrhea. No dysuria or frequency. Of note the patient had a right carotid endarterectomy by Dr. Momin and [facility] 2 weeks ago. She had banding of hemorrhoids [address] Reynoso. Physical Examination: Vitals: Stable. Afebrile. General: Well-nourished and well-developed. Head: Normocephalic atraumatic. Neck: Supple, no lymphadenopathy. No JVD. Nontender. Right carotid endarterectomy incision is closed with Dermabond. It is clean, dry, and intact. There is no erythema or drainage. No evidence of infection. Cardiovascular: Regular rate and rhythm. 2 out of 6 systolic murmurs. Respiratory: No respiratory distress. Clear to auscultation bilaterally. Abdominal: Soft, nontender, nondistended, normal bowel sounds. No guarding, rebound, or peritoneal signs. Back: Nontender. Extremities: Nontender, no edema. Skin: Normal color, no rash. Neurologic: Alert and oriented ?3. Cranial nerves II through XII are intact. Normal sensation to light touch throughout. She has inability to move left arm or left leg against gravity. Patient reports that is chronic for her. Her right arm drifts with gravity. She is unable to move her right leg against gravity. Psych: Normal affect. Test Results: CT brain shows chronic changes. Chest x-ray shows no acute disease. Influenza is negative. CBC is normal. Chem-7 is more for creatinine 1.6, glucose 127, calcium 8.3. Prior creatinines were below 1. LFTs are normal. Coags are normal. Cath UA shows leukocytes and 5-10 white blood cells with 3+ bacteria. Emergency Department Course and Treatment: Patient's NIH scale is 10. However, she has bilateral symptoms and is not a TPA candidate due to the timeframe patient (this began yesterday) and recent surgery. Patient was given a dose of Rocephin IV and her urine was sent for culture. Treatment Plan: The patient is too weak to stand up. Despite the fact that she wants to go home I do not think that this is safe for her. She was discussed with Dr. Gonzalez and will be admitted for further evaluation and treatment. Disposition: Admitted in stable condition. Impression: 1. Generalized weakness. 2. Dehydration. 3. Acute kidney injury. This note was generated with [employer] dictation software. It may contain incorrect words, spelling, and punctuation that were not noted in review of the chart prior to signing ED Disposition - Plan for ED Patient: Referrals: Bakari Ware Chi, MD [Primary Care Provider] -
[2018-10-24] MEDS: LORazepam 1 MG Tablet PO (20:13)
[2018-10-24] MEDS: MELATONIN 10 MG TABLET PO (23:13)
[2018-10-24] MEDS: Atorvastatin Calcium 40 MG Tablet PO (23:13)
[2018-10-24] MEDS: Escitalopram Oxalate 20 MG Tablet PO (23:13)
[2018-10-24] MEDS: Memantine Hydrochloride 10 MG Tablet PO (23:13)
[2018-10-24] MEDS: 0.9% Normal Saline 1,000 ML 75 ML IV (23:35)
[2018-10-24] MEDS: 0.9% NaCl Peripheral Flush Adult/Peds IV (23:35)
[2018-10-25] VITALS (12 sets, daily range): BP systolic 120–149; BP diastolic 70–89; PULSE 74–109; RESP 18–20; TEMP 36.6–37.2; O2SAT 92–95; BMI 33.6
[2018-10-25 00:21] LABS: Bedside Glucose 190 mg/dL (70-110)
[2018-10-25] MEDS: Acetaminophen 325 MG Tablet 650 MG PO ×3 (00:32→20:24)
[2018-10-25] MEDS: Heparin Injection (Vial) 5,000 UNIT/ML VIAL 5000 UNIT SC ×3 (00:33→23:16)
[2018-10-25 07:00] LABS: Bedside Glucose 146 mg/dL (70-110)
[2018-10-25 07:44] LABS: Anion Gap 5 (5-15); BUN 26 mg/dL (7-18); BUN/Creat Ratio 31.5 RATIO (10-20); Calcium,Total 8.2 mg/dL (8.5-10.1); Chloride 109 mmol/L (98-107); Cholesterol 93 mg/dL (200); Creatinine, Serum 0.82 mg/dL (0.55-1.02); EST Glomerular Filtration Rate 72 mL/min (>60); Est Glom Filt Rate - Afr Amer 87 mL/min (>60); Glucose 146 mg/dL (74-106); High Density Lipoprotein 48 mg/dL; Potassium 4.1 mmol/L (3.5-5.1); Sodium Level 141 mmol/L (136-145); Triglycerides 58 mg/dL; Very Low Density Lipoprotein 12 mg/dL (5-40)
--- NOTE | 2018-10-25 09:00 | MRI_ITS ---
STUDY: MRI LUMBAR SPINE WITHOUT CONTRAST REASON FOR EXAM: Female, 72 years old. Leg weakness TECHNIQUE: Standardized fat and water weighted pulse sequences were obtained in the sagittal and axial planes. COMPARISON: Radiographs 07/28/2017 FINDINGS: T12-L1: Incompletely imaged bulging annulus. There is no substantial scoliosis. Normal conus medullaris that terminates at the T12-L1 level. L1-2: Bulging annulus and bilateral ligamentum flavum hypertrophy with mild central canal and bilateral foraminal stenoses. L2-3: Bulging annulus and bilateral facet hypertrophy with mild central canal and moderate left and mild right foraminal stenoses. L3-4: Bulging annulus and bilateral facet and ligamentum flavum hypertrophy with moderate to severe left and moderate right foraminal stenoses. L4-5: Grade 1 L4-5 anterolisthesis. Bulging annulus and bilateral facet and ligamentum flavum hypertrophy with moderate central canal stenosis and moderate to severe right and mild left foraminal stenoses. L5-S1: Bulging annulus and bilateral facet hypertrophy with moderate bilateral foraminal stenoses. Normal visualized sacral ala. Normal visualized paraspinous soft tissue structures. MRI/Spine Lumbar (Routine) IMPRESSION: Grade 1 L4-5 anterolisthesis. Multilevel degenerative disease as described. Moderate to severe foraminal stenoses are present on the left at L3-4 and on the right at L4-5. Electronically Signed: José Miguel Jama MD at 16:22 EDT Tel , Service support ,
--- NOTE | 2018-10-25 09:00 | MRI_ITS ---
STUDY: MRI BRAIN WITHOUT CONTRAST REASON FOR EXAM: Female, 72 years old. CVA, weakness, confusion, recent endarterectomy TECHNIQUE: Standardized multiplanar fat and water weighted pulse sequences were obtained. COMPARISON: 11/16/2016 FINDINGS: Normal size of the ventricles and extra-axial spaces for the patient's age. There are multiple white matter hyperintensities, distributed throughout the deep white matter tracts of the cerebral hemispheres, consistent with moderate chronic white matter ischemic changes. Remote infarcts in the bilateral de la garza radiata. Normal bilateral basal ganglia. Normal thalami. There is no extra-axial fluid accumulation. Normal flow voids within the major intracranial circulation suggesting patency by spin echo criteria. Normal sella turcica, pituitary gland, infundibular stalk, optic chiasm and hypothalamus. Normal tectal plate and pineal gland. There are chronic white matter ischemic changes of the luis alberto. The midbrain and medulla are otherwise normal. Normal cerebellum. Normal basal cisterns. Normal bilateral temporal bones. Normal bilateral internal auditory canals. No demonstrated orbital abnormality, within the constraints of a routine brain study. Normal visualized paranasal sinuses. Hyperostosis frontalis interna. Normal visualized soft tissue structures. Normal visualized upper cervical spine. MRI/Brain without Contrast IMPRESSION: No evidence of acute infarct or hemorrhage. Remote infarcts in the bilateral de la garza radiata. Moderate microangiopathic white matter disease. Electronically Signed: José Miguel Jama MD at 16:08 EDT Tel , Service support ,
--- NOTE | 2018-10-25 09:00 | MRI_ITS ---
STUDY: MRI THORACIC SPINE WITHOUT CONTRAST REASON FOR EXAM: Female, 72 years old. Cord compression, weakness, recent carotid endarterectomy TECHNIQUE: Standardized fat and water weighted pulse sequences were obtained in the sagittal and axial planes. COMPARISON: None. FINDINGS: No cord signal abnormalities. No evidence of cord infarct or expansion. Diffuse degenerative disc disease. No evidence of severe central canal stenosis or zion cord compression. Multilevel mild to moderate foraminal stenoses without evidence of zion exiting nerve root impingement. Normal thoracic spine alignment, without evidence of acute compression fracture. Paraspinal soft tissues are intact. No evidence of epidural hematoma. MRI/Spine Thoracic (Routine) IMPRESSION: No evidence of cord pathology, cord compression, compression fracture or exiting nerve root impingement. Electronically Signed: José Miguel Jama MD at 16:15 EDT Tel , Service support ,
[2018-10-25] MEDS: amLODIPine 10 MG Tablet PO (09:36)
[2018-10-25] MEDS: Aspirin 81 MG TAB.CHEW PO (09:36)
[2018-10-25] MEDS: Ascorbic Acid 500 MG Tablet PO (09:36)
[2018-10-25] MEDS: Clopidogrel Bisulfate 75 MG Tablet PO (09:36)
[2018-10-25] MEDS: Memantine Hydrochloride 10 MG Tablet PO ×2 (09:37→23:31)
[2018-10-25] MEDS: Multivitamins,Ther W-Minerals Tablet 1 TABLET PO (09:37)
[2018-10-25] MEDS: Ceftriaxone 1 GM/50 ML BAG IV (09:37)
--- NOTE | 2018-10-25 10:36 | CON.PCM_ITS ---
Reason for Consult Date of Consultation: 10/25/18 Reason for Consultation: weakness History of Present Illness: The patient is a 72 year old F s/p right cea (reports stent but has right neck incision) 10/11/18 at [facility] in [place]. was doing well until last night, see below, now feels improved, not baseline.denies fevers at home until detected by squad, no gu complaints per admit note:Slurred speech. Worsening left sided weakness. New worsenig right sided weakness The patient is a 72 year old F with past medical history of CVA with left-sided residual weakness, hypertension, hyperlipidemia, right carotid artery stenosis status post CEA 2 weeks prior, ambulatory at home with a walker who comes in with a 1 day history of slurred speech and worsening left-sided weakness. Patient lives with her daughter at home and her daughter noted at 7 PM the patient had worsening left-sided weakness is was unable to use her walker. She helped the patient to get ready for bed. She woke up this morning and patient was found to have slurred speech was persistent worsening left-sided weakness. And was reported by EMS to be slightly warm to touch. Temperature taking was 100.4 F. The ED, her blood pressure was 133/82, temperature 99.3 F, heart rate was 96, re spiratory rate was 18, SPO2 was 92% on room air. Admitting CBC D was unremarkable. INR is 1.0, APTT was 27.8. BMP was remarkable for BUN of 37, creatinine of 1.60. Previous creatinine was normal. Lactic acid was 1.0. UA showed clear urine, negative nitrite, 500 leukocyte esterase, WBC 5-10. Chest x-ray shows no acute abnormality. CT scan of the brain showed chronic involutional changes of the brain Past Medical History Past Medical History (Chronic Problems): Chronic Problems (Last Updated 09/13/18 @ 14:29 by Bobbi Blevins) Localized swelling of both lower legs (Chronic) Hyperlipidemia (Chronic) Type 2 diabetes mellitus (Chronic) Hypertension (Chronic) Diabetic neuropathy (Chronic) Depression (Chronic) Obesity (Chronic) CVA (cerebral infarction) (Chronic 11/2012) Tobacco abuse (Chronic) Medical History: Medical History (Last Updated 09/13/18 @ 14:29 by Bobbi Blevins) Right bundle branch block (Acute) I45.10 Per ekg 06/08/2018 Carotid stenosis, right (Acute) I65.21 Right internal carotid> 70% per CTA done 06/08/[address] [facility] when pt admitted for CVA Localized swelling of both lower legs (Chronic) R22.43 Pre-operative cardiovascular examination (Acute) Z01.810 Hyperlipidemia (Chronic) E78.5 UTI (urinary tract infection) (Acute) N39.0 Type 2 diabetes mellitus (Chronic) E11.9 Hypertension (Chronic) I10 Diabetic neuropathy (Chronic) E11.40 Difficulty walking (Acute) R26.2 mechanical fall (Acute) Depression (Chronic) F32.9 Physical debility (Acute) R53.81 Obesity (Chronic) E66.9 CVA (cerebral infarction) (Chronic) Onset Date: 11/2012 I63.9 Tobacco abuse (Chronic) Z72.0 Weakness (Acute) R53.1 Left hemiparesis (Acute) G81.94 Confusion (Acute) R41.0 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 History of suicide attempt Z91.5 Allergies promethazine HCl [From Phenergan] Adverse Reaction (Verified 10/24/18 13:22) Nausea Home Medications: Ambulatory Orders Medication Instructions Recorded Escitalopram Oxalate [Lexapro] 20 mg PO QHS 06/14/17 Baclofen 20 mg PO TID 06/01/18 Memantine HCl 10 mg PO BID 06/08/18 Aspirin [Aspirin, Baby] 81 mg PO DAILY@0800 06/10/18 Atorvastatin Calcium [Lipitor] 40 mg PO QHS 06/10/18 Clopidogrel Bisulfate [Plavix] 75 mg PO DAILY 06/10/18 hydroxychloroquine 200 mg tablet 200 mg PO BID tab 09/08/18 metformin 500 mg tablet 500 mg PO BID 09/08/18 dulaglutide 1.5 mg/0.5 mL 1.5 mg SC FR 09/13/18 subcutaneous pen injector Amlodipine [Norvasc] 10 mg PO DAILY 10/24/18 Ascorbic Acid [Vitamin C with Sarah 500 mg PO DAILY 10/24/18 Hips] Cranberry 500 mg PO DAILY 10/24/18 Gabapentin [Neurontin] 200 mg PO TID 10/24/18 Galantamine HBr [Galantamine ER] 24 mg PO QHS 10/24/18 Hydrocodone/Acetaminophen [[place] 1 each PO PRN PRN 10/24/18 5-325 Tablet] Lisinopril/Hydrochlorothiazide 1 each PO DAILY 10/24/18 [Lisinopril-Hctz 20-12.5 mg Tab] Melatonin 10 mg PO QHS 10/24/18 Mirabegron [Myrbetriq] 25 mg PO DAILY 10/24/18 Multivit-Min/Iron/Folic/Lutein 1 tab PO DAILY 10/24/18 [Centrum Silver Women Tablet] Polyethylene Glycol 3350 [Miralax] 17 gm PO PRN PRN 10/24/18 Potassium Chloride [K-Dur] 20 meq PO DAILY 10/24/18 Surgical History: Surgical History (Last Reviewed 09/13/18 @ 14:24 by Bobbi Blevins) History of appendectomy Z90.49 History of dilation and curettage Z98.890 History of tonsillectomy and adenoidectomy Z98.890 History of tubal ligation Z98.51 Status post lumbar spine surgery for decompression of spinal cord Z98.890 Surgical History: adenoidectomy, appendectomy, - - lumbar herniated disk surgery Psychiatric History: Anxiety - Patient complains of anxiety symptoms but does not take any medications [employer] 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 Lives: With Family Smoking Status: Former smoker Tobacco Use: Non-smoker Alcohol: None Drugs: None - *Family History Maternal Family History: Family History (Last Reviewed 09/13/18 @ 14:24 by Bobbi Blevins) Father Alcoholism Depression Son Alcoholism Depression Diabetes Hypertension Daughter Alcoholism Asthma Depression Hypertension Migraines Mother Breast cancer Depression History Items: Cancer - Breast, Hypertension, - - Depression Paternal Family History: Family History (Last Reviewed 09/13/18 @ 14:24 by Bobbi Blevins) Father Alcoholism Depression Son Alcoholism Depression Diabetes Hypertension Daughter Alcoholism Asthma Depression Hypertension Migraines Mother Breast cancer Depression History Items: - - Alcoholism, depression Sibling Family History: Family History (Last Reviewed 09/13/18 @ 14:24 by Bobbi Blevins) Father Alcoholism Depression Son Alcoholism Depression Diabetes Hypertension Daughter Alcoholism Asthma Depression Hypertension Migraines Mother Breast cancer Depression History Items: No pertinent history Review of Systems Constitutional: Denies: Fever HEENT: Denies: Head Aches, Sinus Congestion, Sinus Drainage Musculoskeletal: Denies: Joint Pain, Joint Tenderness Neurological: Reports: Focal weakness Patient Problems: Active and Suspected Problems (Last Updated 09/13/18 @ 14:29 by Bobbi Blevins) Debility (Acute) Carotid stenosis, right (Acute) - Physical Exam General: Alert, Oriented x3, Cooperative, No apparent distress HEENT: PERRSHAY EOMI Neurological: Cranial nerves II-XII grossly intact, - - mild left drift Vital Signs Temp Pulse Resp BP Pulse Ox 36.8 C 98 18 137/87 H 93 10/25/18 06:56 10/25/18 07:21 10/25/18 06:56 10/25/18 06:56 10/25/18 06:56 Oxygen Flow Rate (L/min) 3 Oxygen Delivery Method Room Air Weight: 87.6 kg Body Mass Index (BMI) 33.6 Finger Stick Blood Glucose 127 Intake and Output for Last 24 Hours 10/23/18 10/24/18 10/25/18 23:59 23:59 23:59 Intake Total 775 / 775 Output Total 500 / 500 Balance 275 / 275 Microbiology Past 72 Hours 10/24/18 16:00 Influenza Types A,B Direct FA (DEEJAY) - Final Mucosa - Nasopharyngeal Laboratory Tests Past 24 Hrs 10/24/18 10/24/18 10/24/18 13:20 13:20 13:20 WBC 7.0 RBC 4.33 Hgb 12.8 Hct 39.4 MCV 91.0 MCH 29.6 MCHC 32.5 RDW 13.6 RDW Differential 44.6 H Plt Count 266 MPV 10.7 Immature Gran % (Auto) 0.100 Neut % (Auto) 60.8 Lymph % (Auto) 26.9 [place] % (Auto) 8.8 Eos % (Auto) 3.0 Baso % (Auto) 0.4 Absolute Neuts (auto) 4.2 Absolute Lymphs (auto) 1.87 Total Counted Not Reportable PT 13.2 INR 1.0 APTT 27.8 Sodium 140 Potassium 4.5 Chloride 107 Carbon Dioxide 28.0 Anion Gap 5 BUN 37 H Creatinine 1.60 H Estim Creat Clear Calc 26.29 Est GFR (MDRD) Af Amer 41 L Est GFR (MDRD) Non-Af 34 L BUN/Creatinine Ratio 23.1 H Glucose 127 H Lactic Acid Calcium 8.3 L Total Bilirubin 0.40 AST 35 ALT 52 Alkaline Phosphatase 51 Total Protein 6.9 Albumin 3.2 Globulin 3.7 Albumin/Globulin Ratio 0.9 Triglycerides Cholesterol LDL Cholesterol VLDL Cholesterol HDL Cholesterol Urine Color Urine Clarity Urine pH Ur Specific [place] Urine Protein Urine Glucose (UA) Urine Ketones Urine Occult Blood Urine Nitrite Urine Bilirubin Urine Urobilinogen Ur Leukocyte Esterase Urine RBC Urine WBC Ur Squamous Epith Cells Urine Bacteria Urine Mucus 10/24/18 10/24/18 10/25/18 13:20 14:25 06:30 WBC RBC Hgb Hct MCV MCH MCHC RDW RDW Differential Plt Count MPV Immature Gran % (Auto) Neut % (Auto) Lymph % (Auto) [place] % (Auto) Eos % (Auto) Baso % (Auto) Absolute Neuts (auto) Absolute Lymphs (auto) Total Counted PT INR APTT Sodium 141 Potassium 4.1 Chloride 109 H Carbon Dioxide 27.0 Anion Gap 5 BUN 26 H Creatinine 0.82 Estim Creat Clear Calc 51.30 Est GFR (MDRD) Af Amer 87 Est GFR (MDRD) Non-Af 72 BUN/Creatinine Ratio 31.5 H Glucose 146 H Lactic Acid 1.0 Calcium 8.2 L Total Bilirubin AST ALT Alkaline Phosphatase Total Protein Albumin Globulin Albumin/Globulin Ratio Triglycerides 58 Cholesterol 93 LDL Cholesterol 33 VLDL Cholesterol 12 HDL Cholesterol 48 Urine Color Yellow Urine Clarity Clear Urine pH 6.0 Ur Specific [place] 1.015 Urine Protein Negative Urine Glucose (UA) Normal Urine Ketones Negative Urine Occult Blood Negative Urine Nitrite Negative Urine Bilirubin Negative Urine Urobilinogen Normal Ur Leukocyte Esterase 500 H Urine RBC 0 SEEN Urine WBC 5-10 SEEN Ur Squamous Epith Cells 0 SEEN Urine Bacteria 3+ Urine Mucus 0 SEEN POC Glucose 10/25/18 10/24/18 06:47 23:25 POC Glucose 146 H 190 H Assessment/Plan All Active Problems (Last Updated 09/13/18 @ 14:29 by Bobbi Blevins) Debility (Acute) Carotid stenosis, right (Acute) Right bundle branch block (Acute) Carotid stenosis, right (Acute) Pre-operative cardiovascular examination (Acute) UTI (urinary tract infection) (Acute) Difficulty walking (Acute) mechanical fall (Acute) Physical debility (Acute) Weakness (Acute) Left hemiparesis (Acute) Confusion (Acute) suspect encephalopathy due to uti await mri, agree with antibiotics asa/plavix as per dr zeeshan tiwari pt/ot home when baseline if mri negative
[2018-10-25 12:16] LABS: Bedside Glucose 188 mg/dL (70-110)
--- NOTE | 2018-10-25 12:46 | RAD_ITS ---
STUDY: X-RAY - PELVIS AND LEFT HIP REASON FOR EXAM: Female, 72 years old. Pain TECHNIQUE: 2 views of the pelvis and hip. COMPARISON: None. FINDINGS: There is a non-specific bowel gas pattern. Normal visualized soft tissue structures. Normal bilateral iliac wings, sacroiliac joints and visualized sacrum. Normal bilateral superior and inferior pubic rami. Normal pubic symphysis. Normal bilateral ischial tuberosities. Normal visualized femoral head. Normal acetabulum. Mild bilateral hip osteoarthritis. Becker catheter in the bladder. Pelvic phleboliths. Degenerative lumbar changes. RAD/HIP, UNI W/ Pelvis 2-3 Views IMPRESSION: Mild bilateral hip osteoarthritis. Electronically Signed: José Miguel Jama MD at 18:56 EDT Tel , Service support ,
[2018-10-25] MEDS: 0.9% Normal Saline 1,000 ML 75 ML IV (13:13)
[2018-10-25] MEDS: LORazepam 0.5 MG Tablet PO (13:13)
[2018-10-25] MEDS: DiphenhydrAMINE 25 MG Capsule 50 MG PO (13:13)
--- NOTE | 2018-10-25 13:57 | PCM.PN.HOSP ---
Patient Problems: Active and Suspected Problems (Last Updated 09/13/18 @ 14:29 by Bobbi Blevins) Debility (Acute) Carotid stenosis, right (Acute) Subjective: Strength improved overall. Patient states that since her prior stroke, she has had residual left-sided weakness but does state that her weakness this time around was more diffuse. Patient states that her baseline performance status is minimal going from the bathroom to chair and back again. She states that she does once a week to a restaurant with a friend. Uses a walker at baseline. Complains of pain in her left leg for a a while when I inquired about how long a while was for her, she said was about 30 minutes. She was upset with the nurse when the nurse tried to extend her left leg due to pain. Denies any fall onto the leg. Vitals/I&O's: Vital Signs Temp Pulse Resp BP Pulse Ox 36.8 C 109 H 18 122/75 H 95 10/25/18 10:00 10/25/18 11:04 10/25/18 10:00 10/25/18 10:00 10/25/18 10:00 Oxygen Flow Rate (L/min) 3 Oxygen Delivery Method Room Air Weight: 87.6 kg Body Mass Index (BMI) 33.6 Finger Stick Blood Glucose 127 Intake and Output for Last 24 Hours 10/23/18 10/24/18 10/25/18 23:59 23:59 23:59 Intake Total 1075 / 1075 Output Total 790 / 790 Balance 285 / 285 General: Alert, No apparent distress HEENT: Atraumatic, PERRLA, EOMI, Normocephalic Oral: Moist Mucosa, No Gingival or Mucosal Lesions/ Ulcerations Neck: No Nodes, Thyroid Normal Size and Texture Lungs: Clear to auscultation, Normal air movement, No rhonchi, No wheeze Cardiovascular: Regular rate, Regular Rhythm, Normal S1, Normal S2, No murmurs Abdomen: Bowel Sounds Present, Soft, Non Tender, Non-Distended, No Hepato-splenomegaly Extremities: No edema, No Calf Tenderness Skin: No rashes, No breakdown Musculoskeletal: No Tenderness to Palpation of Joints or Extremities, No Muscle Wasting, - - Left leg is flexed. Neurological: Cranial nerves II-XII grossly intact, - - Muscle strength 4-5 in the upper extremities bilaterally. Psych/Mental Status: Anxious, Flat Affect Microbiology Past 72 Hours 10/24/18 14:25 Urine Catheter - Catheter Urine Culture - Preliminary Presumptive E. coli 10/24/18 16:00 Mucosa - Nasopharyngeal Influenza Types A,B Direct FA (DEEJAY) - Final Laboratory Results 10/24/18 13:20: PT 13.2, INR 1.0, APTT 27.8 10/24/18 13:20: Lactic Acid 1.0 10/24/18 14:25: Urine Color Yellow, Urine Clarity Clear, Urine pH 6.0, Ur Specific [place] 1.015, Urine Protein Negative, Urine Glucose (UA) Normal, Urine Ketones Negative, Urine Occult Blood Negative, Urine Nitrite Negative, Urine Bilirubin Negative, Urine Urobilinogen Normal, Ur Leukocyte Esterase 500 H, Urine RBC 0 SEEN, Urine WBC 5-10 SEEN, Ur Squamous Epith Cells 0 SEEN, Urine Bacteria 3+, Urine Mucus 0 SEEN 10/24/18 23:25: POC Glucose 190 H 10/25/18 06:30: Sodium 141, Potassium 4.1, Chloride 109 H, Carbon Dioxide 27.0, Anion Gap 5, BUN 26 H, Creatinine 0.82, Estim Creat Clear Calc 51.30, Est GFR (MDRD) Af Amer 87, Est GFR (MDRD) Non-Af 72, BUN/Creatinine Ratio 31.5 H, Glucose 146 H, Calcium 8.2 L, Triglycerides 58, Cholesterol 93, LDL Cholesterol 33, VLDL Cholesterol 12, HDL Cholesterol 48 10/25/18 06:47: POC Glucose 146 H 10/25/18 12:08: POC Glucose 188 H Clinical Impression(s) from Imaging Studies Brain CT 10/24/18 13:35 IMPRESSION: Chronic involutional changes of the brain. Electronically Signed: Tyson Lim, at 14:41 EDT , Service support , Chest X-Ray 10/24/18 13:35 IMPRESSION: Stable examination. No acute abnormality is seen. Electronically Signed: Tyson Lim, at 14:42 EDT , Service support , Current Medications Acetaminophen (Tylenol) 650 mg PO Q6H PRN PRN PRN Reason: PAIN Last Admin: 10/25/18 09:37 Dose: 650 mg Amlodipine Besylate (Norvasc) 10 mg PO DAILY [facility] Last Admin: 10/25/18 09:36 Dose: 10 mg Ascorbic Acid (Vitamin C) 500 mg PO DAILY [facility] Last Admin: 10/25/18 09:36 Dose: 500 mg Aspirin (Aspirin, Baby) 81 mg PO DAILY@0800 [facility] Last Admin: 10/25/18 09:36 Dose: 81 mg Atorvastatin Calcium (Lipitor) 40 mg PO QHS [facility] Last Admin: 10/24/18 23:13 Dose: 40 mg Bisacodyl (Dulcolax) 5 mg PO DAILY PRN PRN PRN Reason: Constipation Clopidogrel Bisulfate (Plavix) 75 mg PO DAILY [facility] Last Admin: 10/25/18 09:36 Dose: 75 mg Dextrose (D50w Syringe) 0 gm IV X1 PRN; Protocol PRN Reason: Hypoglycemia Escitalopram Oxalate (Lexapro) 20 mg PO QHS [facility] Last Admin: 10/24/18 23:13 Dose: 20 mg Glucagon () 1 mg IM .X1 PRN PRN Reason: Hypoglycemia Heparin Sodium (Porcine) (Heparin Na) 5,000 unit SC Q12 [facility] Last Admin: 10/25/18 09:37 Dose: 5,000 unit Sodium Chloride () 1,000 mls @ 75 mls/hr IV .[id number] [facility] Stop: 10/25/18 14:50 Last Admin: 10/25/18 13:13 Dose: 75 mls/hr Ceftriaxone Sodium (Rocephin) 1 gm in 50 mls @ 100 mls/hr IV Q24 [facility] Last Admin: 10/25/18 09:37 Dose: 100 mls/hr Magnesium Hydroxide (Milk Of Magnesia) 30 ml PO DAILY PRN PRN Reason: Constipation Melatonin (Melatonin) 10 mg PO QHS [facility] Last Admin: 10/24/18 23:13 Dose: 10 mg Memantine (Namenda) 10 mg PO BID [facility] Last Admin: 10/25/18 09:37 Dose: 10 mg Multivitamins/Minerals (Multivitamin With Minerals) 1 tablet PO DAILY@0800 [facility] Last Admin: 10/25/18 09:37 Dose: 1 tablet Non-Formulary Medication (Dulaglutide [Trulicity]) 1.5 mg SC FR MADHAV Ondansetron HCl (Zofran) 4 mg IV Q8H PRN PRN PRN Reason: NAUSEA Polyethylene Glycol (Miralax) 17 gm PO DAILY PRN PRN PRN Reason: Constipation Psyllium Hydrophilic Mucilloid (Metamucil) 1 packet PO DAILY PRN PRN PRN Reason: CONSTIPATION Sodium Chloride () 5 - 15 ml IV UD PRN PRN Reason: SALINE FLUSH Last Admin: 10/24/18 23:35 Dose: 10 ml Medical Necessity - Tobacco Use Smoking Status: Former smoker Tobacco Use: Non-smoker Assessment/Plan All Active Problems (Last Updated 09/13/18 @ 14:29 by Bobbi Blevins) Debility (Acute) Carotid stenosis, right (Acute) Right bundle branch block (Acute) Carotid stenosis, right (Acute) Pre-operative cardiovascular examination (Acute) UTI (urinary tract infection) (Acute) Difficulty walking (Acute) mechanical fall (Acute) Physical debility (Acute) Weakness (Acute) Left hemiparesis (Acute) Confusion (Acute) 1. Acute kidney injury resolved likely prerenal HLIV 2. Debility likely related with her prior CVA, poor performance status and dehydration doubt UTI undergoing work up for new CVA--doubt. neurology on consult 3. Asymptomatic bacteruria doubt UTI follow up culture on ceftriaxone 4. PAD: continue ASA, plavix, HIS 5. VTE proph: SQ heparin. Code Visit Inpatient E&M: 51896 Subs Hosp L3
--- NOTE | 2018-10-25 14:03 | PN_ITS ---
Patient Problems: Active and Suspected Problems (Last Updated 09/13/18 @ 14:29 by Bobbi Blevins) Debility (Acute) Carotid stenosis, right (Acute) Subjective: Strength improved overall. Patient states that since her prior stroke, she has had residual left-sided weakness but does state that her weakness this time around was more diffuse. Patient states that her baseline performance status is minimal going from the bathroom to chair and back again. She states that she does once a week to a restaurant with a friend. Uses a walker at baseline. Complains of pain in her left leg for a a while when I inquired about how long a while was for her, she said was about 30 minutes. She was upset with the nurse when the nurse tried to extend her left leg due to pain. Denies any fall onto the leg. Vitals/I&O's: Vital Signs Temp Pulse Resp BP Pulse Ox 36.8 C 109 H 18 122/75 H 95 10/25/18 10:00 10/25/18 11:04 10/25/18 10:00 10/25/18 10:00 10/25/18 10:00 Oxygen Flow Rate (L/min) 3 Oxygen Delivery Method Room Air Weight: 87.6 kg Body Mass Index (BMI) 33.6 Finger Stick Blood Glucose 127 Intake and Output for Last 24 Hours 10/23/18 10/24/18 10/25/18 23:59 23:59 23:59 Intake Total 1075 / 1075 Output Total 790 / 790 Balance 285 / 285 General: Alert, No apparent distress HEENT: Atraumatic, PERRLA, EOMI, Normocephalic Oral: Moist Mucosa, No Gingival or Mucosal Lesions/ Ulcerations Neck: No Nodes, Thyroid Normal Size and Texture Lungs: Clear to auscultation, Normal air movement, No rhonchi, No wheeze Cardiovascular: Regular rate, Regular Rhythm, Normal S1, Normal S2, No murmurs Abdomen: Bowel Sounds Present, Soft, Non Tender, Non-Distended, No Hepato- splenomegaly Extremities: No edema, No Calf Tenderness Skin: No rashes, No breakdown Musculoskeletal: No Tenderness to Palpation of Joints or Extremities, No Muscle Wasting, - - Left leg is flexed. Neurological: Cranial nerves II-XII grossly intact, - - Muscle strength 4-5 in the upper extremities bilaterally. Psych/Mental Status: Anxious, Flat Affect Microbiology Past 72 Hours 10/24/18 14:25 Urine Catheter - Catheter Urine Culture - Preliminary Presumptive E. coli 10/24/18 16:00 Mucosa - Nasopharyngeal Influenza Types A,B Direct FA (DEEJAY) - Final Laboratory Results 10/24/18 13:20: PT 13.2, INR 1.0, APTT 27.8 10/24/18 13:20: Lactic Acid 1.0 10/24/18 14:25: Urine Color Yellow, Urine Clarity Clear, Urine pH 6.0, Ur Specific [place] 1.015, Urine Protein Negative, Urine Glucose (UA) Normal, Urine Ketones Negative, Urine Occult Blood Negative, Urine Nitrite Negative, Urine Bilirubin Negative, Urine Urobilinogen Normal, Ur Leukocyte Esterase 500 H, Urine RBC 0 SEEN, Urine WBC 5-10 SEEN, Ur Squamous Epith Cells 0 SEEN, Urine Bacteria 3+, Urine Mucus 0 SEEN 10/24/18 23:25: POC Glucose 190 H 10/25/18 06:30: Sodium 141, Potassium 4.1, Chloride 109 H, Carbon Dioxide 27.0, Anion Gap 5, BUN 26 H, Creatinine 0.82, Estim Creat Clear Calc 51.30, Est GFR (MDRD) Af Amer 87, Est GFR (MDRD) Non-Af 72, BUN/Creatinine Ratio 31.5 H, Glucose 146 H, Calcium 8.2 L, Triglycerides 58, Cholesterol 93, LDL Cholesterol 33, VLDL Cholesterol 12, HDL Cholesterol 48 10/25/18 06:47: POC Glucose 146 H 10/25/18 12:08: POC Glucose 188 H Clinical Impression(s) from Imaging Studies Brain CT 10/24/18 13:35 IMPRESSION: Chronic involutional changes of the brain. Electronically Signed: Tyson Lim, at 14:41 EDT , Service support , Chest X-Ray 10/24/18 13:35 IMPRESSION: Stable examination. No acute abnormality is seen. Electronically Signed: Tyson Lim, at 14:42 EDT , Service support , Current Medications Acetaminophen (Tylenol) 650 mg PO Q6H PRN PRN PRN Reason: PAIN Last Admin: 10/25/18 09:37 Dose: 650 mg Amlodipine Besylate (Norvasc) 10 mg PO DAILY [facility] Last Admin: 10/25/18 09:36 Dose: 10 mg Ascorbic Acid (Vitamin C) 500 mg PO DAILY [facility] Last Admin: 10/25/18 09:36 Dose: 500 mg Aspirin (Aspirin, Baby) 81 mg PO DAILY@0800 [facility] Last Admin: 10/25/18 09:36 Dose: 81 mg Atorvastatin Calcium (Lipitor) 40 mg PO QHS [facility] Last Admin: 10/24/18 23:13 Dose: 40 mg Bisacodyl (Dulcolax) 5 mg PO DAILY PRN PRN PRN Reason: Constipation Clopidogrel Bisulfate (Plavix) 75 mg PO DAILY [facility] Last Admin: 10/25/18 09:36 Dose: 75 mg Dextrose (D50w Syringe) 0 gm IV X1 PRN; Protocol PRN Reason: Hypoglycemia Escitalopram Oxalate (Lexapro) 20 mg PO QHS [facility] Last Admin: 10/24/18 23:13 Dose: 20 mg Glucagon () 1 mg IM .X1 PRN PRN Reason: Hypoglycemia Heparin Sodium (Porcine) (Heparin Na) 5,000 unit SC Q12 [facility] Last Admin: 10/25/18 09:37 Dose: 5,000 unit Sodium Chloride () 1,000 mls @ 75 mls/hr IV .[id number] [facility] Stop: 10/25/18 14:50 Last Admin: 10/25/18 13:13 Dose: 75 mls/hr Ceftriaxone Sodium (Rocephin) 1 gm in 50 mls @ 100 mls/hr IV Q24 [facility] Last Admin: 10/25/18 09:37 Dose: 100 mls/hr Magnesium Hydroxide (Milk Of Magnesia) 30 ml PO DAILY PRN PRN Reason: Constipation Melatonin (Melatonin) 10 mg PO QHS [facility] Last Admin: 10/24/18 23:13 Dose: 10 mg Memantine (Namenda) 10 mg PO BID [facility] Last Admin: 10/25/18 09:37 Dose: 10 mg Multivitamins/Minerals (Multivitamin With Minerals) 1 tablet PO DAILY@0800 [facility] Last Admin: 10/25/18 09:37 Dose: 1 tablet Non-Formulary Medication (Dulaglutide [Trulicity]) 1.5 mg SC FR [facility] Ondansetron HCl (Zofran) 4 mg IV Q8H PRN PRN PRN Reason: NAUSEA Polyethylene Glycol (Miralax) 17 gm PO DAILY PRN PRN PRN Reason: Constipation Psyllium Hydrophilic Mucilloid (Metamucil) 1 packet PO DAILY PRN PRN PRN Reason: CONSTIPATION Sodium Chloride () 5 - 15 ml IV UD PRN PRN Reason: SALINE FLUSH Last Admin: 10/24/18 23:35 Dose: 10 ml Medical Necessity - Tobacco Use Smoking Status: Former smoker Tobacco Use: Non-smoker Assessment/Plan All Active Problems (Last Updated 09/13/18 @ 14:29 by Bobbi Blevins) Debility (Acute) Carotid stenosis, right (Acute) Right bundle branch block (Acute) Carotid stenosis, right (Acute) Pre-operative cardiovascular examination (Acute) UTI (urinary tract infection) (Acute) Difficulty walking (Acute) mechanical fall (Acute) Physical debility (Acute) Weakness (Acute) Left hemiparesis (Acute) Confusion (Acute) 1. Acute kidney injury * resolved * likely prerenal * HLIV 2. Debility * likely related with her prior CVA, poor performance status and dehydration * doubt UTI * undergoing work up for new CVA--doubt. neurology on consult 3. Asymptomatic bacteruria * doubt UTI * follow up culture * on ceftriaxone 4. PAD: continue ASA, plavix, HIS 5. VTE proph: SQ heparin. Code Visit Inpatient E&M: 22141 Subs Hosp L3
--- NOTE | 2018-10-25 15:23 | CASEMGMT ---
RN CM attempted to complete LOBO form with patient. Patient is currently out of the room at this time at a procedure. RN CM will attempt to complete LOBO with patient at later time.
[2018-10-25 16:51] LABS: Bedside Glucose 164 mg/dL (70-110)
[2018-10-25] MEDS: MELATONIN 10 MG TABLET PO (23:15)
[2018-10-25] MEDS: Atorvastatin Calcium 40 MG Tablet PO (23:16)
[2018-10-25] MEDS: Escitalopram Oxalate 20 MG Tablet PO (23:16)
[2018-10-25 23:20] LABS: Bedside Glucose 113 mg/dL (70-110)
[2018-10-25] MEDS: Ondansetron 4 MG/2 ML Vial IV (23:24)
[2018-10-25] MEDS: 0.9% NaCl Peripheral Flush Adult/Peds IV ×2 (23:24→23:25)
[2018-10-26] VITALS (7 sets, daily range): BP systolic 133–148; BP diastolic 72–81; PULSE 73–104; RESP 18–20; TEMP 36.4–36.8; O2SAT 93–95
[2018-10-26 07:06] LABS: Bedside Glucose 126 mg/dL (70-110)
[2018-10-26] MEDS: Clopidogrel Bisulfate 75 MG Tablet PO (09:18)
[2018-10-26] MEDS: amLODIPine 10 MG Tablet PO (09:18)
[2018-10-26] MEDS: Aspirin 81 MG TAB.CHEW PO (09:18)
[2018-10-26] MEDS: Ascorbic Acid 500 MG Tablet PO (09:18)
[2018-10-26] MEDS: Memantine Hydrochloride 10 MG Tablet PO ×2 (09:19→22:45)
[2018-10-26] MEDS: 0.9% NaCl Peripheral Flush Adult/Peds IV (09:19)
[2018-10-26] MEDS: Heparin Injection (Vial) 5,000 UNIT/ML VIAL 5000 UNIT SC ×2 (09:19→22:45)
[2018-10-26] MEDS: Multivitamins,Ther W-Minerals Tablet 1 TABLET PO (09:19)
[2018-10-26] MEDS: Ceftriaxone 1 GM/50 ML BAG IV (09:19)
--- NOTE | 2018-10-26 10:08 | CASEMGMT ---
PEDRO CHAPPELL NOTE: Reviewed LOBO form with pt and questions answered. Form signed by pt, copy made and placed on chart and original given to pt. Pt also given MCR's Are you a Hospital In-patient or Out-patient info sheets. Mariah PATRICK RN CM
--- NOTE | 2018-10-26 10:49 | CASEMGMT ---
SAM spoke with patient regarding her discharge plan. She said she plans on going home at discharge. SAM told her we will see how she does with therapy and if she changes her mind to let SAM know. Annie BARRAZA
--- NOTE | 2018-10-26 12:06 | PCM.PN.HOSP ---
Patient Problems: Active and Suspected Problems (Last Updated 09/13/18 @ 14:29 by Bobbi Blevins) Debility (Acute) Carotid stenosis, right (Acute) Subjective: Still weak. No other complaints. Vitals/I&O's: Vital Signs Temp Pulse Resp BP Pulse Ox 36.8 C 73 18 141/72 H 93 10/26/18 09:07 10/26/18 10:59 10/26/18 09:07 10/26/18 09:07 10/26/18 09:07 Oxygen Flow Rate (L/min) 3 Oxygen Delivery Method Room Air Weight: 87.6 kg Body Mass Index (BMI) 33.6 Finger Stick Blood Glucose 127 Intake and Output for Last 24 Hours 10/24/18 10/25/18 10/26/18 23:59 23:59 23:59 Intake Total 1829 / 1829 Output Total 1929 / 1929 250 / 250 Balance -100 / -100 -250 / -250 General: Alert, No apparent distress HEENT: Atraumatic, Normocephalic Oral: Moist Mucosa, No Gingival or Mucosal Lesions/ Ulcerations Neck: No Nodes, Thyroid Normal Size and Texture Lungs: Clear to auscultation, Normal air movement, No rhonchi, No wheeze Cardiovascular: Regular rate, Regular Rhythm, Normal S1, Normal S2, No murmurs Abdomen: Bowel Sounds Present, Soft, Non Tender, Non-Distended, No Hepato-splenomegaly Extremities: No edema, No Calf Tenderness Psych/Mental Status: Normal Affect, Appropriate Microbiology Past 72 Hours 10/24/18 14:25 Urine Catheter - Catheter Urine Culture - Final Presumptive E. coli 10/24/18 16:00 Mucosa - Nasopharyngeal Influenza Types A,B Direct FA (DEEJAY) - Final Laboratory Results 10/25/18 12:08: POC Glucose 188 H 10/25/18 16:47: POC Glucose 164 H 10/25/18 23:04: POC Glucose 113 H 10/26/18 06:58: POC Glucose 126 H Current Medications Acetaminophen (Tylenol) 650 mg PO Q6H PRN PRN PRN Reason: PAIN Last Admin: 10/25/18 20:24 Dose: 650 mg Amlodipine Besylate (Norvasc) 10 mg PO DAILY [facility] Last Admin: 10/26/18 09:18 Dose: 10 mg Ascorbic Acid (Vitamin C) 500 mg PO DAILY [facility] Last Admin: 10/26/18 09:18 Dose: 500 mg Aspirin (Aspirin, Baby) 81 mg PO DAILY@0800 [facility] Last Admin: 10/26/18 09:18 Dose: 81 mg Atorvastatin Calcium (Lipitor) 40 mg PO QHS [facility] Last Admin: 10/25/18 23:16 Dose: 40 mg Bisacodyl (Dulcolax) 5 mg PO DAILY PRN PRN PRN Reason: Constipation Clopidogrel Bisulfate (Plavix) 75 mg PO DAILY [facility] Last Admin: 10/26/18 09:18 Dose: 75 mg Dextrose (D50w Syringe) 0 gm IV X1 PRN; Protocol PRN Reason: Hypoglycemia Escitalopram Oxalate (Lexapro) 20 mg PO QHS [facility] Last Admin: 10/25/18 23:16 Dose: 20 mg Glucagon () 1 mg IM .X1 PRN PRN Reason: Hypoglycemia Heparin Sodium (Porcine) (Heparin Na) 5,000 unit SC Q12 [facility] Last Admin: 10/26/18 09:19 Dose: 5,000 unit Ceftriaxone Sodium (Rocephin) 1 gm in 50 mls @ 100 mls/hr IV Q24 [facility] Last Admin: 10/26/18 09:19 Dose: 100 mls/hr Magnesium Hydroxide (Milk Of Magnesia) 30 ml PO DAILY PRN PRN Reason: Constipation Melatonin (Melatonin) 10 mg PO QHS [facility] Last Admin: 10/25/18 23:15 Dose: 10 mg Memantine (Namenda) 10 mg PO BID [facility] Last Admin: 10/26/18 09:19 Dose: 10 mg Multivitamins/Minerals (Multivitamin With Minerals) 1 tablet PO DAILY@0800 [facility] Last Admin: 10/26/18 09:19 Dose: 1 tablet Non-Formulary Medication (Dulaglutide [Trulicity]) 1.5 mg SC FR [facility] Ondansetron HCl (Zofran) 4 mg IV Q8H PRN PRN PRN Reason: NAUSEA Last Admin: 10/25/18 23:24 Dose: 4 mg Polyethylene Glycol (Miralax) 17 gm PO DAILY PRN PRN PRN Reason: Constipation Psyllium Hydrophilic Mucilloid (Metamucil) 1 packet PO DAILY PRN PRN PRN Reason: CONSTIPATION Sodium Chloride () 5 - 15 ml IV UD PRN PRN Reason: SALINE FLUSH Last Admin: 10/26/18 09:19 Dose: 10 ml Medical Necessity - Tobacco Use Smoking Status: Former smoker Tobacco Use: Non-smoker Assessment/Plan All Active Problems (Last Updated 09/13/18 @ 14:29 by Bobbi Blevins) Debility (Acute) Carotid stenosis, right (Acute) Right bundle branch block (Acute) Carotid stenosis, right (Acute) Pre-operative cardiovascular examination (Acute) UTI (urinary tract infection) (Acute) Difficulty walking (Acute) mechanical fall (Acute) Physical debility (Acute) Weakness (Acute) Left hemiparesis (Acute) Confusion (Acute) 1. Acute kidney injury resolved likely prerenal HLIV 2. Debility no stroke or cord compromise and MRI brain, T and L spines likely related with her prior CVA, poor performance status and dehydration awaiting on PT OT eval pt wanting to go home w [facility]. will be returning with family. 3. Asymptomatic bacteruria +E. coli UA not really impressive, but will treat for 5 days with nitrofurantoin. 4. PAD: continue ASA, plavix, HIS 5. VTE proph: SQ heparin. Code Visit Inpatient E&M: 58077 Subs Hosp L2
--- NOTE | 2018-10-26 12:09 | PN_ITS ---
Patient Problems: Active and Suspected Problems (Last Updated 09/13/18 @ 14:29 by Bobbi Blevins) Debility (Acute) Carotid stenosis, right (Acute) Subjective: Still weak. No other complaints. Vitals/I&O's: Vital Signs Temp Pulse Resp BP Pulse Ox 36.8 C 73 18 141/72 H 93 10/26/18 09:07 10/26/18 10:59 10/26/18 09:07 10/26/18 09:07 10/26/18 09:07 Oxygen Flow Rate (L/min) 3 Oxygen Delivery Method Room Air Weight: 87.6 kg Body Mass Index (BMI) 33.6 Finger Stick Blood Glucose 127 Intake and Output for Last 24 Hours 10/24/18 10/25/18 10/26/18 23:59 23:59 23:59 Intake Total 1829 / 1829 Output Total 1929 / 1929 250 / 250 Balance -100 / -100 -250 / -250 General: Alert, No apparent distress HEENT: Atraumatic, Normocephalic Oral: Moist Mucosa, No Gingival or Mucosal Lesions/ Ulcerations Neck: No Nodes, Thyroid Normal Size and Texture Lungs: Clear to auscultation, Normal air movement, No rhonchi, No wheeze Cardiovascular: Regular rate, Regular Rhythm, Normal S1, Normal S2, No murmurs Abdomen: Bowel Sounds Present, Soft, Non Tender, Non-Distended, No Hepato- splenomegaly Extremities: No edema, No Calf Tenderness Psych/Mental Status: Normal Affect, Appropriate Microbiology Past 72 Hours 10/24/18 14:25 Urine Catheter - Catheter Urine Culture - Final Presumptive E. coli 10/24/18 16:00 Mucosa - Nasopharyngeal Influenza Types A,B Direct FA (DEEJAY) - Final Laboratory Results 10/25/18 12:08: POC Glucose 188 H 10/25/18 16:47: POC Glucose 164 H 10/25/18 23:04: POC Glucose 113 H 10/26/18 06:58: POC Glucose 126 H Current Medications Acetaminophen (Tylenol) 650 mg PO Q6H PRN PRN PRN Reason: PAIN Last Admin: 10/25/18 20:24 Dose: 650 mg Amlodipine Besylate (Norvasc) 10 mg PO DAILY [facility] Last Admin: 10/26/18 09:18 Dose: 10 mg Ascorbic Acid (Vitamin C) 500 mg PO DAILY [facility] Last Admin: 10/26/18 09:18 Dose: 500 mg Aspirin (Aspirin, Baby) 81 mg PO DAILY@0800 [facility] Last Admin: 10/26/18 09:18 Dose: 81 mg Atorvastatin Calcium (Lipitor) 40 mg PO QHS [facility] Last Admin: 10/25/18 23:16 Dose: 40 mg Bisacodyl (Dulcolax) 5 mg PO DAILY PRN PRN PRN Reason: Constipation Clopidogrel Bisulfate (Plavix) 75 mg PO DAILY [facility] Last Admin: 10/26/18 09:18 Dose: 75 mg Dextrose (D50w Syringe) 0 gm IV X1 PRN; Protocol PRN Reason: Hypoglycemia Escitalopram Oxalate (Lexapro) 20 mg PO QHS [facility] Last Admin: 10/25/18 23:16 Dose: 20 mg Glucagon () 1 mg IM .X1 PRN PRN Reason: Hypoglycemia Heparin Sodium (Porcine) (Heparin Na) 5,000 unit SC Q12 [facility] Last Admin: 10/26/18 09:19 Dose: 5,000 unit Ceftriaxone Sodium (Rocephin) 1 gm in 50 mls @ 100 mls/hr IV Q24 [facility] Last Admin: 10/26/18 09:19 Dose: 100 mls/hr Magnesium Hydroxide (Milk Of Magnesia) 30 ml PO DAILY PRN PRN Reason: Constipation Melatonin (Melatonin) 10 mg PO QHS [facility] Last Admin: 10/25/18 23:15 Dose: 10 mg Memantine (Namenda) 10 mg PO BID [facility] Last Admin: 10/26/18 09:19 Dose: 10 mg Multivitamins/Minerals (Multivitamin With Minerals) 1 tablet PO DAILY@0800 [facility] Last Admin: 10/26/18 09:19 Dose: 1 tablet Non-Formulary Medication (Dulaglutide [Trulicity]) 1.5 mg SC FR [facility] Ondansetron HCl (Zofran) 4 mg IV Q8H PRN PRN PRN Reason: NAUSEA Last Admin: 10/25/18 23:24 Dose: 4 mg Polyethylene Glycol (Miralax) 17 gm PO DAILY PRN PRN PRN Reason: Constipation Psyllium Hydrophilic Mucilloid (Metamucil) 1 packet PO DAILY PRN PRN PRN Reason: CONSTIPATION Sodium Chloride () 5 - 15 ml IV UD PRN PRN Reason: SALINE FLUSH Last Admin: 10/26/18 09:19 Dose: 10 ml Medical Necessity - Tobacco Use Smoking Status: Former smoker Tobacco Use: Non-smoker Assessment/Plan All Active Problems (Last Updated 09/13/18 @ 14:29 by Bobbi Blevins) Debility (Acute) Carotid stenosis, right (Acute) Right bundle branch block (Acute) Carotid stenosis, right (Acute) Pre-operative cardiovascular examination (Acute) UTI (urinary tract infection) (Acute) Difficulty walking (Acute) mechanical fall (Acute) Physical debility (Acute) Weakness (Acute) Left hemiparesis (Acute) Confusion (Acute) 1. Acute kidney injury * resolved * likely prerenal * HLIV 2. Debility * no stroke or cord compromise and MRI brain, T and L spines * likely related with her prior CVA, poor performance status and dehydration * awaiting on PT OT eval * pt wanting to go home w [facility]. will be returning with family. 3. Asymptomatic bacteruria * +E. coli * UA not really impressive, but will treat for 5 days with nitrofurantoin. 4. PAD: continue ASA, plavix, HIS 5. VTE proph: SQ heparin. Code Visit Inpatient E&M: 88019 Subs Hosp L2
[2018-10-26 12:41] LABS: Bedside Glucose 169 mg/dL (70-110)
--- NOTE | 2018-10-26 13:15 | CASEMGMT ---
Physician spoke with patient and her daughter and they agree to SNF. SW met with patient and her daughter and their first choice would be [facility] and second would be [facility] if they could get a 1 time contract. SW left a message for Keri in TCU. Annie OJEDA MSW
--- NOTE | 2018-10-26 15:40 | CHAPLAIN ---
Type of Pastoral Visit _x__ Initial Visit ___ Follow-up Visit ___ On-call Visit ___ General Patient Visit ___ Spiritual Assessment ___ Family Conference ___ Bereavement ___ Rapid Response ___ Code Blue ___ Other (describe below) Pastoral Care Referral From _x__ Patient _x__ Family ___ Nurse ___ Physician ___ Mystery Shopper ___ Mainframe Systems Administrator ___ Other (describe below) Sacrament/Intervention _x__ Active listening ___ Anointing ___ Lutheran ___ Bereavement ___ Communion ___ Jessie exploration ___ ___ Life review _x__ Prayer ___ Reconciliation ___ Sacrament of Sick ___ Supportive presence ___ Wedding ___ Other (describe below) Pastoral Comments
[2018-10-26 16:40] LABS: Bedside Glucose 160 mg/dL (70-110)
--- NOTE | 2018-10-26 20:35 | NURSING ---
Called report to [facility], charge nurse at this time.
[2018-10-26] MEDS: Atorvastatin Calcium 40 MG Tablet PO (22:45)
[2018-10-26] MEDS: MELATONIN 10 MG TABLET PO (22:45)
[2018-10-26] MEDS: Escitalopram Oxalate 20 MG Tablet PO (22:45)
[2018-10-26 23:01] LABS: Bedside Glucose 113 mg/dL (70-110)
[2018-10-27 01:10] VITALS: BP 138/78; PULSE 86; RESP 18; TEMP 36.6; O2SAT 95
[2018-10-27 08:12] VITALS: BP 172/86; PULSE 82; RESP 18; TEMP 36.8; O2SAT 98
[2018-10-27] MEDS: Multivitamins,Ther W-Minerals Tablet 1 TABLET PO (08:29)
[2018-10-27] MEDS: Ascorbic Acid 500 MG Tablet PO (08:30)
[2018-10-27] MEDS: amLODIPine 10 MG Tablet PO (08:30)
[2018-10-27] MEDS: Aspirin 81 MG TAB.CHEW PO (08:30)
[2018-10-27] MEDS: Heparin Injection (Vial) 5,000 UNIT/ML VIAL 5000 UNIT SC ×2 (08:31→21:01)
[2018-10-27] MEDS: Clopidogrel Bisulfate 75 MG Tablet PO (08:31)
[2018-10-27] MEDS: Memantine Hydrochloride 10 MG Tablet PO ×2 (08:31→21:01)
[2018-10-27 08:44] VITALS: PULSE 82
--- NOTE | 2018-10-27 13:15 | PN_ITS ---
Patient Problems: Active and Suspected Problems (Last Updated 09/13/18 @ 14:29 by Bobbi Blevins) Debility (Acute) Carotid stenosis, right (Acute) Subjective: The week but still asking to go home with home care despite lengthy conversation with she and her daughter yesterday about going to a correction facility as patient is a 2 person assist and her daughter and her daughter's boyfriend would not be able to accommodate the patient in the [id number] care that she requires at this time. Vitals/I&O's: Vital Signs Temp Pulse Resp BP Pulse Ox 36.8 C 82 18 172/86 H 98 10/27/18 08:12 10/27/18 08:44 10/27/18 08:12 10/27/18 08:12 10/27/18 08:12 Oxygen Flow Rate (L/min) 3 Oxygen Delivery Method Room Air Weight: 87.6 kg Body Mass Index (BMI) 33.6 Finger Stick Blood Glucose 127 Intake and Output for Last 24 Hours 10/25/18 10/26/18 10/27/18 23:59 23:59 23:59 Intake Total 1830 / 1830 677 / 677 620 / 620 Output Total 1930 / 1930 750 / 750 Balance -100 / -100 -73 / -73 620 / 620 General: Alert, No apparent distress HEENT: Atraumatic, Normocephalic Oral: Moist Mucosa, No Gingival or Mucosal Lesions/ Ulcerations Neck: No Nodes, Thyroid Normal Size and Texture Lungs: Clear to auscultation, Normal air movement, No rhonchi, No wheeze Cardiovascular: Regular rate, Regular Rhythm, Normal S1, Normal S2, No murmurs Abdomen: Bowel Sounds Present, Soft, Non Tender, Non-Distended, No Hepato- splenomegaly Extremities: No edema, No Calf Tenderness Skin: No rashes, No breakdown Psych/Mental Status: Normal Affect, Appropriate Microbiology Past 72 Hours 10/24/18 13:45 Blood Culture (Wb) - Right Wrist Blood Culture - Preliminary No growth in 48 hours. 10/24/18 13:20 Blood Culture (Wb) - Right Hand Blood Culture - Preliminary No growth in 48 hours. 10/24/18 14:25 Urine Catheter - Catheter Urine Culture - Final Presumptive E. coli 10/24/18 16:00 Mucosa - Nasopharyngeal Influenza Types A,B Direct FA (DEEJAY) - Final Laboratory Results 10/26/18 16:36: POC Glucose 160 H 10/26/18 22:46: POC Glucose 113 H Current Medications Acetaminophen (Tylenol) 650 mg PO Q6H PRN PRN PRN Reason: PAIN Last Admin: 10/25/18 20:24 Dose: 650 mg Amlodipine Besylate (Norvasc) 10 mg PO DAILY [facility] Last Admin: 10/27/18 08:30 Dose: 10 mg Ascorbic Acid (Vitamin C) 500 mg PO DAILY [facility] Last Admin: 10/27/18 08:30 Dose: 500 mg Aspirin (Aspirin, Baby) 81 mg PO DAILY@0800 [facility] Last Admin: 10/27/18 08:30 Dose: 81 mg Atorvastatin Calcium (Lipitor) 40 mg PO QHS [facility] Last Admin: 10/26/18 22:45 Dose: 40 mg Bisacodyl (Dulcolax) 5 mg PO DAILY PRN PRN PRN Reason: Constipation Clopidogrel Bisulfate (Plavix) 75 mg PO DAILY [facility] Last Admin: 10/27/18 08:31 Dose: 75 mg Dextrose (D50w Syringe) 0 gm IV X1 PRN; Protocol PRN Reason: Hypoglycemia Escitalopram Oxalate (Lexapro) 20 mg PO QHS [facility] Last Admin: 10/26/18 22:45 Dose: 20 mg Glucagon () 1 mg IM .X1 PRN PRN Reason: Hypoglycemia Heparin Sodium (Porcine) (Heparin Na) 5,000 unit SC Q12 [facility] Last Admin: 10/27/18 08:31 Dose: 5,000 unit Magnesium Hydroxide (Milk Of Magnesia) 30 ml PO DAILY PRN PRN Reason: Constipation Melatonin (Melatonin) 10 mg PO QHS [facility] Last Admin: 10/26/18 22:45 Dose: 10 mg Memantine (Namenda) 10 mg PO BID [facility] Last Admin: 10/27/18 08:31 Dose: 10 mg Multivitamins/Minerals (Multivitamin With Minerals) 1 tablet PO DAILY@0800 [facility] Last Admin: 10/27/18 08:29 Dose: 1 tablet Nitrofurantoin Macrocrystals (Macrodantin) 50 mg PO Q6H [facility] Stop: 10/30/18 02:01 Last Admin: 10/27/18 08:30 Dose: 50 mg Ondansetron HCl (Zofran) 4 mg IV Q8H PRN PRN PRN Reason: NAUSEA Last Admin: 10/25/18 23:24 Dose: 4 mg Polyethylene Glycol (Miralax) 17 gm PO DAILY PRN PRN PRN Reason: Constipation Psyllium Hydrophilic Mucilloid (Metamucil) 1 packet PO DAILY PRN PRN PRN Reason: CONSTIPATION Sodium Chloride () 5 - 15 ml IV UD PRN PRN Reason: SALINE FLUSH Last Admin: 10/26/18 09:19 Dose: 10 ml Medical Necessity - Tobacco Use Smoking Status: Former smoker Tobacco Use: Non-smoker Assessment/Plan All Active Problems (Last Updated 09/13/18 @ 14:29 by Bobbi Blevins) Debility (Acute) Carotid stenosis, right (Acute) Right bundle branch block (Acute) Carotid stenosis, right (Acute) Pre-operative cardiovascular examination (Acute) UTI (urinary tract infection) (Acute) Difficulty walking (Acute) mechanical fall (Acute) Physical debility (Acute) Weakness (Acute) Left hemiparesis (Acute) Confusion (Acute) 1. Acute kidney injury * resolved * likely prerenal * HLIV 2. Debility * no stroke or cord compromise and MRI brain, T and L spines * likely related with her prior CVA, poor performance status and dehydration * awaiting on PT OT eval * pt wanting to go home w [facility]. will be returning with family. * Plan is for correction facility. Patient encouraged to speak with her daughter more specifically if she insists on going home. 3. Asymptomatic bacteruria * +E. coli * UA not really impressive, but will treat for 5 days with nitrofurantoin. 4. PAD: continue ASA, plavix, HIS 5. VTE proph: SQ heparin. Code Visit Inpatient E&M: 25865 Subs Hosp L2
--- NOTE | 2018-10-27 13:28 | CASEMGMT ---
Addendum entered by Iveth Jang 10/27/18 14:20: SW has faxed two faxes to [facility] and neither have gone through. SW called Eunice at [facility] and got a different fax number [phone]. SW faxed referral. Original Note: Social Work Note SW updated by Annie OJEDA that [facility] doesn't have any beds and [facility] is unable to do one time contract. Annie OJEDA updated the pt of this earlier today. Pt's daughter Nanci requesting to speak to this worker. SW met with pt's daughter Nanci and pt. SAM updated Nanci that [facility] doesn't have any beds and [facility] is unable to get one time contract. Nanci states that pt has been at [facility] and [facility] before and first choice is [facility]. SAM explained referral process and that pt will need pre-cert. Nanci states understanding. Pt agreeable to [facility]. SAM faxed referral to [facility] and placed a call to Eunice and left her a message regarding referral. SW waiting to hear from [facility]. Plan: [facility] pending acceptance and pre-cert Iveth Jang AIRPORT REPRESENTATIVE, PRODUCTION MECHANIC
[2018-10-27 14:38] VITALS: BP 154/83; PULSE 94; RESP 18; TEMP 37.3; O2SAT 94
[2018-10-27] MEDS: 0.9% NaCl Peripheral Flush Adult/Peds IV (16:15)
[2018-10-27] MEDS: Ondansetron 4 MG/2 ML Vial IV (16:15)
--- NOTE | 2018-10-27 16:41 | CASEMGMT ---
Social Work Note SW spoke with Eunice at [facility]. Eunice is able to accept pt and will submit for pre-cert. Plan: [facility] pending pre-cert Iveth Jang MSW, ASSEMBLYMAN OR WOMAN
[2018-10-27 19:41] VITALS: BP 149/85; PULSE 84; RESP 18; TEMP 36.5; O2SAT 96
[2018-10-27] MEDS: Escitalopram Oxalate 20 MG Tablet PO (21:01)
[2018-10-27] MEDS: Atorvastatin Calcium 40 MG Tablet PO (21:01)
[2018-10-27] MEDS: MELATONIN 10 MG TABLET PO (21:01)
[2018-10-28 02:55] VITALS: BP 155/83; PULSE 71; RESP 18; TEMP 37.1; O2SAT 94
[2018-10-28] MEDS: Ondansetron 4 MG/2 ML Vial IV (09:23)
[2018-10-28] MEDS: 0.9% NaCl Peripheral Flush Adult/Peds IV (09:23)
[2018-10-28] MEDS: Ascorbic Acid 500 MG Tablet PO (09:25)
[2018-10-28] MEDS: Heparin Injection (Vial) 5,000 UNIT/ML VIAL 5000 UNIT SC (09:25)
[2018-10-28] MEDS: Aspirin 81 MG TAB.CHEW PO (09:25)
[2018-10-28] MEDS: Memantine Hydrochloride 10 MG Tablet PO (09:25)
[2018-10-28] MEDS: amLODIPine 10 MG Tablet PO (09:25)
[2018-10-28] MEDS: Clopidogrel Bisulfate 75 MG Tablet PO (09:25)
[2018-10-28] MEDS: Multivitamins,Ther W-Minerals Tablet 1 TABLET PO (09:25)
[2018-10-28] MEDS: Polyethylene Glycol 3350 17 GM PACKET PO (09:31)
[2018-10-28 09:40] VITALS: BP 158/81; PULSE 91; RESP 18; TEMP 36.3; O2SAT 94
--- NOTE | 2018-10-28 12:07 | PCM.TXEXTCAR ---
- Diet 10/25/18 08:41 Diet: Cardiac/Low Cholesterol Is pt able to select menu?: Yes - Routine Orders/Code Status Routine Lab Work: BMP - Wound(s) Right neck Wound Type: Surgical Incision - Therapies Physical Therapy: Eval and Treat Occupational Therapy: Eval and Treat - Allergies/Procedures Done in Hospital Allergies/Adverse Reactions: Allergies promethazine HCl [From Phenergan] Adverse Reaction (Verified 10/24/18 13:22) Nausea Procedures: None - Type of Care/Length of Stay Estimated LOS: Convalescent Care Less Than 30 days Type of Care Needed: Skilled Rehab Potential: Fair Prognosis: Fair - Additional Orders/Day of Discharge Day of Discharge: 10/28/18 - Dietary and Speech Recommendations Dietitian Recommendations/Changes: Recommend Cardiac/1600 Calorie Controlled Diet. - Follow Up Care Primary Care Physician: Bakari Ware Chi, MD [Primary Care Provider] - Within 2 Weeks
--- NOTE | 2018-10-28 12:10 | PCM.DC.SUM ---
Discharge Date and Diagnosis - Problem List Patient Problems: Active and Suspected Problems (Last Updated 09/13/18 @ 14:29 by Bobbi Blevins) Debility (Acute) Carotid stenosis, right (Acute) Date of Admission: 10/24/18 Date of Discharge: 10/28/18 - Primary Discharge Diagnosis Active and Suspected Problems (Last Updated 09/13/18 @ 14:29 by Bobbi Blevins) Debility (Acute) Carotid stenosis, right (Acute) 1. Acute kidney injury resolved likely prerenal HLIV 2. Debility no stroke or cord compromise and MRI brain, T and L spines likely related with her prior CVA, poor performance status and dehydration awaiting on PT OT eval pt wanting to go home w [facility]. will be returning with family. Plan is for halfway facility. Patient encouraged to speak with her daughter more specifically if she insists on going home. 3. Asymptomatic bacteruria +E. coli UA not really impressive, but will treat for 5 days with nitrofurantoin. 4. PAD: continue ASA, plavix, HIS - Secondary Discharge Diagnosis Chronic Problems (Last Updated 09/13/18 @ 14:29 by Bobbi Blevins) Localized swelling of both lower legs (Chronic) Hyperlipidemia (Chronic) Type 2 diabetes mellitus (Chronic) Hypertension (Chronic) Diabetic neuropathy (Chronic) Depression (Chronic) Obesity (Chronic) CVA (cerebral infarction) (Chronic 11/2012) Tobacco abuse (Chronic) Hospital Course and Treatment Imaging Results: Clinical Impression(s) from Imaging Studies Brain CT 10/24/18 13:35 IMPRESSION: Chronic involutional changes of the brain. Electronically Signed: Tyson Lim, at 14:41 EDT , Service support , Chest X-Ray 10/24/18 13:35 IMPRESSION: Stable examination. No acute abnormality is seen. Electronically Signed: Tyson Lim, at 14:42 EDT , Service support , Brain MRI 10/25/18 09:00 IMPRESSION: No evidence of acute infarct or hemorrhage. Remote infarcts in the bilateral de la garza radiata. Moderate microangiopathic white matter disease. Electronically Signed: José Miguel Jama MD at 16:08 EDT Tel , Service support , Lumbar Spine MRI 10/25/18 09:00 IMPRESSION: Grade 1 L4-5 anterolisthesis. Multilevel degenerative disease as described. Moderate to severe foraminal stenoses are present on the left at L3-4 and on the right at L4-5. Electronically Signed: José Miguel Jama MD at 16:22 EDT Tel , Service support , Thoracic Spine MRI 10/25/18 09:00 IMPRESSION: No evidence of cord pathology, cord compression, compression fracture or exiting nerve root impingement. Electronically Signed: José Miguel Jama MD at 16:15 EDT Tel , Service support , Hip/Pelvis X-Ray 10/25/18 12:46 IMPRESSION: Mild bilateral hip osteoarthritis. Electronically Signed: José Miguel Jama MD at 18:56 EDT Tel , Service support , Operations: None Procedures: None Summary of Care Provided: The patient is a 72 year old F weakness. Patient underwent a stroke workup that was unremarkable as well as a evaluation of her thoracic and lumbar spine that showed no radiculopathy. Feeling that the patient's weakness of attributable to a urinary tract infection is all as well as some dehydration. Patient was medically started on Macrobid culture showed E. coli that was sensitive to it. Patient's combination pill of lisinopril and HCTZ was discontinued as her kidney function has normalized, that will be resumed. BMP will need to be followed up. Also discontinued the patient's gabapentin as it may be masking some confusion and precipitating some of her weakness discussion must be advised with this medication. [] Patient Problems: Active and Suspected Problems (Last Updated 09/13/18 @ 14:29 by Bobbi Blevins) Debility (Acute) Carotid stenosis, right (Acute) - Physical Exam General: Alert, No apparent distress HEENT: Atraumatic, Normocephalic Oral: Moist Mucosa Lungs: Clear to auscultation, Normal air movement, No rhonchi, No wheeze Cardiovascular: Regular rate, Regular Rhythm, Normal S1, Normal S2 Vital Signs Temp Pulse Resp BP Pulse Ox 36.3 C L 91 18 158/81 H 94 10/28/18 09:40 10/28/18 09:40 10/28/18 09:40 10/28/18 09:40 10/28/18 09:40 Oxygen Flow Rate (L/min) 3 Oxygen Delivery Method Room Air Weight: 87.6 kg Body Mass Index (BMI) 33.6 Finger Stick Blood Glucose 127 Intake and Output for Last 24 Hours 10/26/18 10/27/18 10/28/18 23:59 23:59 23:59 Intake Total 677 / 677 1470 / 1470 Output Total 750 / 750 Balance -73 / -73 1470 / 1470 Microbiology Past 72 Hours 10/24/18 13:45 Blood Culture - Preliminary Blood Culture (Wb) - Right Wrist No growth in 48 hours. 10/24/18 13:20 Blood Culture - Preliminary Blood Culture (Wb) - Right Hand No growth in 48 hours. 10/24/18 14:25 Urine Culture - Final Urine Catheter - Catheter Presumptive E. coli Discharge Diet: 1800 Calorie Control Diet Discharge Activity: Return to Normal Activity Call your doctor if you observe: Fever of 101 or Higher, Shortness of breath, - - increased weakness (especially if one-sided), increased confusion. Home Medications: Medications to take at Discharge Escitalopram Oxalate [Lexapro] 20 mg PO QHS 06/14/17 Memantine HCl 10 mg PO BID 06/08/18 Aspirin [Aspirin, Baby] 81 mg PO DAILY@0800 06/10/18 Atorvastatin Calcium [Lipitor] 40 mg PO QHS 06/10/18 Clopidogrel Bisulfate [Plavix] 75 mg PO DAILY 06/10/18 hydroxychloroquine 200 mg tablet 200 mg PO BID tab 09/08/18 metformin 500 mg tablet 500 mg PO BID 09/08/18 dulaglutide 1.5 mg/0.5 mL subcutaneous pen injector 1.5 mg SC FR 09/13/18 Amlodipine [Norvasc] 10 mg PO DAILY 10/24/18 Ascorbic Acid [Vitamin C with Sarah Hips] 500 mg PO DAILY 10/24/18 Cranberry 500 mg PO DAILY 10/24/18 Galantamine HBr [Galantamine ER] 24 mg PO QHS 10/24/18 Lisinopril/Hydrochlorothiazide [Lisinopril-Hctz 20-12.5 mg Tab] 1 each PO DAILY 10/24/18 Melatonin 10 mg PO QHS 10/24/18 Mirabegron [Myrbetriq] 25 mg PO DAILY 10/24/18 Multivit-Min/Iron/Folic/Lutein [Centrum Silver Women Tablet] 1 tab PO DAILY 10/24/18 Polyethylene Glycol 3350 [Miralax] 17 gm PO PRN PRN 10/24/18 Potassium Chloride [K-Dur] 20 meq PO DAILY 10/24/18 Acetaminophen [Tylenol Tablet] 650 mg PO Q6H PRN PRN tablet 10/28/18 Nitrofurantoin Macrocrystal [Macrodantin] 50 mg PO Q6H capsule 10/28/18 Primary Care Physician: Bakari Ware Chi, MD [Primary Care Provider] - Within 2 Weeks Disposition: Senior Care facility Minutes spent on discharge:: 32 Patient Condition:: Fair Medical Necessity - Tobacco Use Smoking Status: Former smoker Tobacco Use: Non-smoker Meaningful Use Info Meaningful Use Diagnoses (Choose all that apply): None applicable Code Visit Inpatient E&M: 52674 Disch Hosp
--- NOTE | 2018-10-28 12:13 | DS.PCM_ITS ---
Discharge Date and Diagnosis - Problem List Patient Problems: Active and Suspected Problems (Last Updated 09/13/18 @ 14:29 by Bobbi Blevins) Debility (Acute) Carotid stenosis, right (Acute) Date of Admission: 10/24/18 Date of Discharge: 10/28/18 - Primary Discharge Diagnosis Active and Suspected Problems (Last Updated 09/13/18 @ 14:29 by Bobbi Blevins) Debility (Acute) Carotid stenosis, right (Acute) 1. Acute kidney injury * resolved * likely prerenal * HLIV 2. Debility * no stroke or cord compromise and MRI brain, T and L spines * likely related with her prior CVA, poor performance status and dehydration * awaiting on PT OT eval * pt wanting to go home w [facility]. will be returning with family. * Plan [facility] for [facility] facility. Patient encouraged to speak with her daughter more specifically if she insists on going home. 3. Asymptomatic bacteruria * +E. coli * UA not really impressive, but will treat for 5 days with nitrofurantoin. 4. PAD: continue ASA, plavix, HIS - Secondary Discharge Diagnosis Chronic Problems (Last Updated 09/13/18 @ 14:29 by Bobbi Blevins) Localized swelling of both lower legs (Chronic) Hyperlipidemia (Chronic) Type 2 diabetes mellitus (Chronic) Hypertension (Chronic) Diabetic neuropathy (Chronic) Depression (Chronic) Obesity (Chronic) CVA (cerebral infarction) (Chronic 11/2012) Tobacco abuse (Chronic) Hospital Course and Treatment Imaging Results: Clinical Impression(s) from Imaging Studies Brain CT 10/24/18 13:35 IMPRESSION: Chronic involutional changes of the brain. Electronically Signed: Tyson Lim, at 14:41 EDT , Service support , Chest X-Ray 10/24/18 13:35 IMPRESSION: Stable examination. No acute abnormality is seen. Electronically Signed: Tyson Lim, at 14:42 EDT , Service support , Brain MRI 10/25/18 09:00 IMPRESSION: No evidence of acute infarct or hemorrhage. Remote infarcts in the bilateral de la garza radiata. Moderate microangiopathic white matter disease. Electronically Signed: José Miguel Jama MD at 16:08 EDT Tel , Service support , Lumbar Spine MRI 10/25/18 09:00 IMPRESSION: Grade 1 L4-5 anterolisthesis. Multilevel degenerative disease as described. Moderate to severe foraminal stenoses are present on the left at L3-4 and on the right at L4-5. Electronically Signed: José Miguel Jama MD at 16:22 EDT Tel , Service support , Thoracic Spine MRI 10/25/18 09:00 IMPRESSION: No evidence of cord pathology, cord compression, compression fracture or exiting nerve root impingement. Electronically Signed: José Miguel Jama MD at 16:15 EDT Tel , Service support , Hip/Pelvis X-Ray 10/25/18 12:46 IMPRESSION: Mild bilateral hip osteoarthritis. Electronically Signed: José Miguel Jama MD at 18:56 EDT Tel , Service support , Operations: None Procedures: None Summary of Care Provided: The patient is a 72 year old F weakness. Patient underwent a stroke workup that was unremarkable as well as a evaluation of her thoracic and lumbar spine that showed no radiculopathy. Feeling that the patient's weakness of attributable to a urinary tract infection is all as well as some dehydration. Patient was medically started on Macrobid culture showed E. coli that was sensitive to it. Patient's combination pill of lisinopril and HCTZ was discontinued as her kidney function has normalized, that will be resumed. BMP will need to be followed up. Also discontinued the patient's gabapentin as it may be masking some confusion and precipitating some of her weakness discussion must be advised with this medication. [] Patient Problems: Active and Suspected Problems (Last Updated 09/13/18 @ 14:29 by Bobbi Blevins) Debility (Acute) Carotid stenosis, right (Acute) - Physical Exam General: Alert, No apparent distress HEENT: Atraumatic, Normocephalic Oral: Moist Mucosa Lungs: Clear to auscultation, Normal air movement, No rhonchi, No wheeze Cardiovascular: Regular rate, Regular Rhythm, Normal S1, Normal S2 Vital Signs Temp Pulse Resp BP Pulse Ox 36.3 C L 91 18 158/81 H 94 10/28/18 09:40 10/28/18 09:40 10/28/18 09:40 10/28/18 09:40 10/28/18 09:40 Oxygen Flow Rate (L/min) 3 Oxygen Delivery Method Room Air Weight: 87.6 kg Body Mass Index (BMI) 33.6 Finger Stick Blood Glucose 127 Intake and Output for Last 24 Hours 10/26/18 10/27/18 10/28/18 23:59 23:59 23:59 Intake Total 677 / 677 1470 / 1470 Output Total 750 / 750 Balance -73 / -73 1470 / 1470 Microbiology Past 72 Hours 10/24/18 13:45 Blood Culture - Preliminary Blood Culture (Wb) - Right Wrist No growth in 48 hours. 10/24/18 13:20 Blood Culture - Preliminary Blood Culture (Wb) - Right Hand No growth in 48 hours. 10/24/18 14:25 Urine Culture - Final Urine Catheter - Catheter Presumptive E. coli Discharge Diet: 1800 Calorie Control Diet Discharge Activity: Return to Normal Activity Call your doctor if you observe: Fever of 101 or Higher, Shortness of breath, - - increased weakness (especially if one-sided), increased confusion. Home Medications: Medications to take at Discharge Escitalopram Oxalate [Lexapro] 20 mg PO QHS 06/14/17 Memantine HCl 10 mg PO BID 06/08/18 Aspirin [Aspirin, Baby] 81 mg PO DAILY@0800 06/10/18 Atorvastatin Calcium [Lipitor] 40 mg PO QHS 06/10/18 Clopidogrel Bisulfate [Plavix] 75 mg PO DAILY 06/10/18 hydroxychloroquine 200 mg tablet 200 mg PO BID tab 09/08/18 metformin 500 mg tablet 500 mg PO BID 09/08/18 dulaglutide 1.5 mg/0.5 mL subcutaneous pen injector 1.5 mg SC FR 09/13/18 Amlodipine [Norvasc] 10 mg PO DAILY 10/24/18 Ascorbic Acid [Vitamin C with Sarah Hips] 500 mg PO DAILY 10/24/18 Cranberry 500 mg PO DAILY 10/24/18 Galantamine HBr [Galantamine ER] 24 mg PO QHS 10/24/18 Lisinopril/Hydrochlorothiazide [Lisinopril-Hctz 20-12.5 mg Tab] 1 each PO DAILY 10/24/18 Melatonin 10 mg PO QHS 10/24/18 Mirabegron [Myrbetriq] 25 mg PO DAILY 10/24/18 Multivit-Min/Iron/Folic/Lutein [Centrum Silver Women Tablet] 1 tab PO DAILY 10/24/18 Polyethylene Glycol 3350 [Miralax] 17 gm PO PRN PRN 10/24/18 Potassium Chloride [K-Dur] 20 meq PO DAILY 10/24/18 Acetaminophen [Tylenol Tablet] 650 mg PO Q6H PRN PRN tablet 10/28/18 Nitrofurantoin Macrocrystal [Macrodantin] 50 mg PO Q6H capsule 10/28/18 Primary Care Physician: Bakari Ware Chi, MD [Primary Care Provider] - Within 2 Weeks Disposition: [facility] facility Minutes spent on discharge:: 32 Patient Condition:: Fair Medical Necessity - Tobacco Use Smoking Status: Former smoker Tobacco Use: Non-smoker Meaningful Use Info Meaningful Use Diagnoses (Choose all that apply): None applicable Code Visit Inpatient E&M: 01991 Disch Hosp
--- NOTE | 2018-10-28 13:30 | CASEMGMT ---
Social Work Note SW received call from Eunice at [facility] stating pre-cert has been obtained and pt is able to discharge today. Physician updated. SAM faxed completed discharge paperwork to Eunice including transfer to extended care facility, signed medication list and any scripts. Original in SNF folder and copy on pt's chart. SAM completed PAS/RR in [facility]. Original in SNF folder and copy on pt's chart. SAM placed a call to pt's daughter Nanci and updated her on approval for SNF. Eunice states she is able to transport pt and will be at [facility] around 3:00pm to transport. RN updated and Eunice at [facility] updated. Plan: Pt to discharge to [facility] skilled today with family transporting private vehicle Iveth Jang CPHT, INFORMATION ASSISTANT
[2018-10-28 13:45] VITALS: BP 147/68; PULSE 81; RESP 18; TEMP 36.8; O2SAT 93
--- NOTE | 2018-10-28 15:30 | NURSING ---
REPORT CALLED TO GERONIMO @ [facility]
== END 2018-10-28 16:47 | disposition skilled nursing facility (03) ==
LOC: ED 13:44 → PCU 16:58 → MS3 10-26 21:20
PROVIDERS: Admitting Provider Internal Medicine; Emergency Provider Emergency Medicine; Family Provider Family Medicine Geriatric Medicine; PCP Family Medicine Geriatric Medicine
DX: I65.21 Occlusion and stenosis of right carotid artery (principal); R82.71 Bacteriuria; E11.40 Type 2 diabetes mellitus with diabetic neuropathy, unspecified; E11.51 Type 2 diabetes mellitus with diabetic peripheral angiopathy without gangrene; E78.5 Hyperlipidemia, unspecified; I10 Essential (primary) hypertension; F32.9 Major depressive disorder, single episode, unspecified; E66.9 Obesity, unspecified; R47.81 Slurred speech; R29.710 NIHSS score 10; N17.9 Acute kidney failure, unspecified; E86.0 Dehydration; I69.354 Hemiplegia and hemiparesis following cerebral infarction affecting left non-dominant side; F02.81 Dementia in other diseases classified elsewhere, unspecified severity, with behavioral disturbance; R29.810 Facial weakness; Z68.34 Body mass index [BMI] 34.0-34.9, adult; Z71.3 Dietary counseling and surveillance; Z79.82 Long term (current) use of aspirin; Z79.899 Other long term (current) drug therapy; Z79.02 Long term (current) use of antithrombotics/antiplatelets; Z79.84 Long term (current) use of oral hypoglycemic drugs; Z87.891 Personal history of nicotine dependence
CPT/HCPCS: 36415; 51702; 70450; 70551; 71046; 72146; 72148; 73502; 80048; 80053; 80061; 81001; 82962; 83605; 85025; 85610; 85730; 87040; 87086; 87088; 87186; 87804; 92526; 92610; 96361; 96365; 96366; 96372; 96375; 96376; 97116; 97163; 97166; 97530; 97802; 99218; 99285; J7030; A4216; G0378; J2405

== ENCOUNTER → 2018-11-22 14:17 | Outpatient (CLI) | payer MEDICARE, SELFPAY ==
[2018-10-25 05:00] VITALS: BMI 33.6
[2018-11-22 15:19] LABS: Absolute Lymphocyte Count 2.56 X10^3/ul (0.83-4.51); Absolute Neutrophil Count 4.5 X10^3/uL (2.0-7.7); Basophil# 0.03 X10^3/uL; Basophil% 0.4 % (0-1); Eosinophil# 0.24 X10^3/uL; Hematocrit 38.8 % (37-47); Hemoglobin 12.9 g/dl (12.0-15.0); Lymphocyte # 2.56 X10^3/ul (4.0); Lymphocyte % 31.8 % (19-41); Mean Corp Hgb Conc 33.2 g/gl (32-36); Mean Corpuscular Hgb 29.7 pg (27.0-32.0); Mean Corpuscular Volume 89.4 fL (81-99); Mean Platelet Vol. 10.3 fl (6.2-12.0); Monocyte# 0.69 X10^3/uL; Monocyte% 8.6 % (0-10); Neutrophil # 4.52 X10^3/uL (2.7-7.7); Platelet Count 285 K/mm3 (150-450); RBC Distribution Width CV 13.3 % (11.6-14.6); RBC Distribution Width SD 43.6 fl (35.1-43.9); Red Blood Count 4.34 M/mm3 (4.2-5.4); White Blood Count 8.1 K/mm3 (4.4-11.0)
[2018-11-22 15:50] LABS: POSITIVE COUNT NO; POSITIVE DIFFERENTIAL NO; POSITIVE MORPHOLOGY NO
[2018-11-22 15:59] LABS: ALB/GLOB Ratio 0.9 RATIO (0.9-2.4); AST(SGOT) 30 U/L (15-37); Alanine Aminotransfer ALT/SGPT 45 U/L (13-56); Albumin, Serum 3.6 g/dL (3.2-5.0); Alkaline Phosphatase 55 U/L (45-117); Anion Gap 12 (5-15); BUN 27 mg/dL (7-18); Calcium,Total 9.1 mg/dL (8.5-10.1); Chloride 102 mmol/L (98-107); Creatinine, Serum 1.04 mg/dL (0.55-1.02); EST Glomerular Filtration Rate 55 mL/min (>60); Est Glom Filt Rate - Afr Amer 67 mL/min (>60); Globulin 4.1 g/dL (2.2-4.2); Glucose 67 mg/dL (74-106); Protein, Total 7.7 g/dL (6.4-8.2); Sodium Level 139 mmol/L (136-145)
== END ==
PROVIDERS: Family Provider Internal Medicine; PCP Internal Medicine; Referring Provider Internal Medicine Rheumatology; Visit Provider Internal Medicine Rheumatology
DX: M06.09 Rheumatoid arthritis without rheumatoid factor, multiple sites (principal); M47.897 Other spondylosis, lumbosacral region; I69.30 Unspecified sequelae of cerebral infarction; E11.42 Type 2 diabetes mellitus with diabetic polyneuropathy; I10 Essential (primary) hypertension; G30.9 Alzheimer's disease, unspecified; E78.5 Hyperlipidemia, unspecified; F32.89 Other specified depressive episodes; R32 Unspecified urinary incontinence
CPT/HCPCS: 36415; 80053; 85025

== ENCOUNTER → 2018-12-08 18:00 | Outpatient (CLI) | payer MEDICARE, SELFPAY ==
[2018-10-25 05:00] VITALS: BMI 33.6
[2018-12-09 14:20] LABS: Red Blood Cells-Urine 0 SEEN /hpf (0-5)
[2018-12-09 14:48] LABS: Color, Urine Yellow (Yellow); Glucose, Dipstick Normal (Normal); Ketone-Dipstick Negative (Negative); Leukocyte Esterase-Dipstick 500 /ul (Negative); Nitrite-Dipstick Negative (Negative); Occult Blood-Urine 10 /ul (Negative); Protein-Dipstick 30 mg/dl (Negative); Urine Bilirubin Dipstick Negative (Negative); Urine Clarity Cloudy (Clear); Urine Urobilinogen Normal (Normal)
[2018-12-09 15:01] LABS: Bacteria 4+ /hpf (None Seen); Mucous, Urine 1+ /hpf (<or=2+); Squamous Epithelial Cells - UA 0-5 SEEN /hpf (5-10); White Blood Cells 25-50 SEEN /hpf (0-5)
[2018-12-09 15:03] LABS: Transitional Epithelial - Ur 0-5 SEEN /hpf (0-5)
== END ==
PROVIDERS: Family Provider Internal Medicine; PCP Internal Medicine
DX: R35.0 Frequency of micturition (principal)
CPT/HCPCS: 81001; 87086; 87088; 87186

== ENCOUNTER → 2019-05-23 17:06 | Outpatient (CLI) | payer MEDICARE, SELFPAY ==
[2019-04-27 13:55] VITALS: BMI 32.2
[2019-05-23 17:15] LABS: Hemoglobin 14.1 g/dL (12.0-15.0); Mean Corp Hgb Conc 32.8 g/dL (32-36); Mean Corpuscular Hgb 30.1 pg (27.0-32.0); Mean Corpuscular Volume 91.7 fL (81-99); Mean Platelet Vol. 10.5 fl (6.2-12.0); Platelet Count 235 K/mm3 (150-450); RBC Distribution Width CV 12.8 % (11.6-14.6); RBC Distribution Width SD 42.2 fl (35.1-43.9); Red Blood Count 4.69 M/mm3 (4.2-5.4)
[2019-05-23 17:44] LABS: Anion Gap 9 (5-15); BUN 23 mg/dL (7-18); BUN/Creat Ratio 22.1 RATIO (10-20); Chloride 102 mmol/L (98-107); Creatinine, Serum 1.04 mg/dL (0.55-1.02); EST Glomerular Filtration Rate 55 mL/min (>60); Est Glom Filt Rate - Afr Amer 67 mL/min (>60); Glucose 133 mg/dL (74-106); Potassium 4.2 mmol/L (3.5-5.1); Sodium Level 138 mmol/L (136-145)
[2019-05-23 18:20] LABS: Hemoglobin A1c 7.5 % (4.2-6.3)
[2019-05-25 05:06] LABS: Hepatitis C Ab <0.1 s/co ratio (0.0-0.9)
== END ==
PROVIDERS: Family Provider Family Medicine Geriatric Medicine; PCP Family Medicine Geriatric Medicine; Referring Provider Internal Medicine; Visit Provider Internal Medicine
DX: Z11.59 Encounter for screening for other viral diseases (principal); E11.40 Type 2 diabetes mellitus with diabetic neuropathy, unspecified; I10 Essential (primary) hypertension; Z79.899 Other long term (current) drug therapy
CPT/HCPCS: 80048; 83036; 85027; 86803; 86804

== ENCOUNTER → 2019-11-15 15:13 | Outpatient (CLI) | payer MEDICARE, SELFPAY ==
[2019-04-27 13:55] VITALS: BMI 32.2
[2019-11-15 16:49] LABS: Hematocrit 46.1 % (37-47); Mean Corp Hgb Conc 32.5 g/dL (32-36); Mean Corpuscular Hgb 30.2 pg (27.0-32.0); Mean Corpuscular Volume 92.9 fL (81-99); Mean Platelet Vol. 11.4 fl (6.2-12.0); Platelet Count 231 K/mm3 (150-450); RBC Distribution Width CV 12.6 % (11.6-14.6); RBC Distribution Width SD 42.6 fl (35.1-43.9); Red Blood Count 4.96 M/mm3 (4.2-5.4); White Blood Count 9.8 K/mm3 (4.4-11.0)
[2019-11-15 16:55] LABS: ALB/GLOB Ratio 0.9 RATIO (0.9-2.4); AST(SGOT) 21 U/L (15-37); Alanine Aminotransfer ALT/SGPT 39 U/L (13-56); Albumin, Serum 3.5 g/dL (3.2-5.0); Alkaline Phosphatase 58 U/L (45-117); Anion Gap 6 (5-15); BUN 12 mg/dL (7-18); BUN/Creat Ratio 14.3 RATIO (10-20); Chloride 101 mmol/L (98-107); Cholesterol 117 mg/dL (200); Creatinine, Serum 0.84 mg/dL (0.55-1.02); EST Glomerular Filtration Rate 70 mL/min (>60); Est Glom Filt Rate - Afr Amer 85 mL/min (>60); Globulin 3.9 g/dL (2.2-4.2); Glucose 222 mg/dL (74-106); High Density Lipoprotein 76 mg/dL; Potassium 3.7 mmol/L (3.5-5.1); Protein, Total 7.4 g/dL (6.4-8.2); Sodium Level 137 mmol/L (136-145); Triglycerides 40 mg/dL; Very Low Density Lipoprotein 8 mg/dL (5-40)
[2019-11-15 18:56] LABS: Hemoglobin A1c 8.4 % (4.2-6.3)
== END ==
PROVIDERS: PCP Family Medicine Geriatric Medicine; Referring Provider Internal Medicine; Visit Provider Internal Medicine
DX: I10 Essential (primary) hypertension (principal); E11.40 Type 2 diabetes mellitus with diabetic neuropathy, unspecified; Z79.899 Other long term (current) drug therapy
CPT/HCPCS: 80053; 80061; 83036; 85027

== ENCOUNTER → 2020-05-14 14:17 | Outpatient (CLI) | payer MEDICARE, SELFPAY ==
[2020-01-18 13:31] VITALS: BMI 32.2
[2020-05-14 17:31] LABS: Absolute Lymphocyte Count 1.42 X10^3/uL (0.83-4.51); Absolute Neutrophil Count 4.8 X10^3/uL (2.0-7.7); Basophil# 0.03 X10^3/uL; Basophil% 0.4 % (0-1); Eosinophil# 0.13 X10^3/uL; Eosinophils% 1.9 % (0-5); Hematocrit 42.8 % (37-47); Hemoglobin 13.8 g/dL (12.0-15.0); Lymphocyte # 1.42 X10^3/ul (4.0); Lymphocyte % 20.6 % (19-41); Mean Corp Hgb Conc 32.2 g/dL (32-36); Mean Corpuscular Hgb 29.7 pg (27.0-32.0); Mean Corpuscular Volume 92.2 fL (81-99); Mean Platelet Vol. 11.4 fl (6.2-12.0); Monocyte# 0.49 X10^3/uL; Monocyte% 7.1 % (0-10); NRBC Flagged by Analyzer 0 % (0-5); Neutrophil # 4.79 X10^3/uL (2.7-7.7); Neutrophil % 69.7 % (47-70); Platelet Count 245 K/mm3 (150-450); RBC Distribution Width CV 12.5 % (11.6-14.6); RBC Distribution Width SD 42.4 fl (35.1-43.9); Red Blood Count 4.64 M/mm3 (4.2-5.4); White Blood Count 6.9 K/mm3 (4.4-11.0)
[2020-05-14 17:59] LABS: ALB/GLOB Ratio 0.8 RATIO (0.9-2.4); AST(SGOT) 34 U/L (15-37); Alanine Aminotransfer ALT/SGPT 51 U/L (13-56); Albumin, Serum 3.3 g/dL (3.2-5.0); Alkaline Phosphatase 68 U/L (45-117); Anion Gap 7 (5-15); BUN 16 mg/dL (7-18); Calcium,Total 8.9 mg/dL (8.5-10.1); Chloride 100 mmol/L (98-107); Creatinine, Serum 0.84 mg/dL (0.55-1.02); EST Glomerular Filtration Rate 70 mL/min (>60); Est Glom Filt Rate - Afr Amer 85 mL/min (>60); Glucose 185 mg/dL (74-106); Potassium 3.9 mmol/L (3.5-5.1); Protein, Total 7.3 g/dL (6.4-8.2); Sodium Level 137 mmol/L (136-145)
== END ==
PROVIDERS: PCP Internal Medicine; Referring Provider Internal Medicine Rheumatology; Visit Provider Internal Medicine Rheumatology
DX: M06.00 Rheumatoid arthritis without rheumatoid factor, unspecified site (principal); M19.041 Primary osteoarthritis, right hand; M47.897 Other spondylosis, lumbosacral region; I69.30 Unspecified sequelae of cerebral infarction; E11.42 Type 2 diabetes mellitus with diabetic polyneuropathy; I10 Essential (primary) hypertension; G30.9 Alzheimer's disease, unspecified; F32.89 Other specified depressive episodes; R32 Unspecified urinary incontinence; E78.5 Hyperlipidemia, unspecified
CPT/HCPCS: 36415; 80053; 85025

== ENCOUNTER → 2020-08-08 14:53 | Outpatient (CLI) | payer MEDICARE, SELFPAY ==
[2020-01-18 13:31] VITALS: BMI 32.2
[2020-07-25 15:23] VITALS: BMI 32.6
--- NOTE | 2020-08-08 14:57 | ECHOCS_ITS ---
Reason For Study: PHTN Procedure This was a 2D Doppler, Color Flow transthoracic echocardiogram. The study was technically difficult. Due to body habitus and respiratory interference. Contrast injection was performed. Exam performed in department. Left Ventricle Normal LV size. Left ventricular systolic function is normal. The estimated ejection fraction is 70 %. Diastolic function is indeterminate. Right Ventricle Normal RV size. Normal systolic function. Atria The left atrium is mildly enlarged. Normal right atrium. No doppler evidence for ASD. Mitral Valve Mitral valve not well visualized. Trivial mitral valve insufficiency. Tricuspid Valve The tricuspid valve is not well visualized. Trivial tricuspid valve insufficiency. Unable to estimate RV systolic pressure/pulmonary artery pressure due to technically difficult study. Aortic Valve Trisinus/trileaflet aortic valve. Mild focal aortic valve thickening. Pulmonic Valve The pulmonic valve is not well visualized. Great Vessels Normal sized aortic root. Pericardium/Pleural No pericardial effusion. Medication 22 gauge I.V. with prn adaptor inserted into right arm. Diluted definity 3.5ml given slow IV push to enhance endocardial definition. MMode/2D Measurements & Calculations LVIDd: 4.1 cm IVSd: 1.2 cm Ao root diam: 3.2 cm LVIDs: 2.5 cm LVPWd: 1.2 cm RVDd: 2.8 cm FS: 39.3 % LAV(MOD-bp): 52.0 ml LA A4 area: 19.3 cm2 LA dimension(2D): 3.7 cm LAV(MOD-bp) Indexed: 27.9 ml/m2 LAV(MOD-sp2): 48.2 ml LAV(MOD-sp4): 49.4 ml Time Measurements MV dec time: 0.28 sec Doppler Measurements & Calculations MV E max shahbaz: 101.8 cm/sec Lat Peak E' Shahbaz: 8.3 cm/sec Med Peak E' Shahbaz: 4.4 cm/sec MV A max shahbaz: 122.9 cm/sec E/E' lat: 12.2 E/E' med: 23.2 MV E/A: 0.83 Ao V2 max: 167.1 cm/sec LV V1 max: 127.0 cm/sec PA V2 max: 120.9 cm/sec Ao max P.2 mmHg LV V1 max P.4 mmHg Interpretation Summary The study was technically difficult. Contrast injection was performed. Left ventricular systolic function is normal. The estimated ejection fraction is 70 %. The left atrium is mildly enlarged. Trivial mitral valve insufficiency. Trivial tricuspid valve insufficiency. Mild focal aortic valve thickening. Unable to estimate RV systolic pressure/pulmonary artery pressure due to technically difficult study. Diastolic function is indeterminate. Ordering Physician: Bj Fraser Referring Physician: Opal Bradford Performed By: Lorrie Orellana, DAVID, RVT
== END ==
PROVIDERS: PCP Internal Medicine; Referring Provider Internal Medicine Cardiovascular Disease; Visit Provider Internal Medicine Cardiovascular Disease
DX: I27.20 Pulmonary hypertension, unspecified (principal)
CPT/HCPCS: 93306; Q9957; A4216; C8929

== ENCOUNTER → 2021-03-07 14:22 | Outpatient (CLI) | payer MEDICARE, SELFPAY ==
[2021-03-07 18:11] LABS: Absolute Lymphocyte Count 1.26 X10^3/uL (0.83-4.51); Absolute Neutrophil Count 3.9 X10^3/uL (2.0-7.7); Basophil# 0.01 X10^3/uL; Basophil% 0.2 % (0-1); Eosinophil# 0.13 X10^3/uL; Eosinophils% 2.2 % (0-5); Hematocrit 43.3 % (37-47); Hemoglobin 13.7 g/dL (12.0-15.0); Lymphocyte # 1.26 X10^3/ul (0.83-4.51); Lymphocyte % 21.8 % (19-41); Mean Corp Hgb Conc 31.6 g/dL (32-36); Mean Corpuscular Hgb 30.5 pg (27.0-32.0); Mean Corpuscular Volume 96.4 fL (81-99); Mean Platelet Vol. 11.1 fl (6.2-12.0); Monocyte# 0.49 X10^3/uL; Monocyte% 8.5 % (0-10); NRBC Flagged by Analyzer 0 % (0-5); Neutrophil # 3.88 X10^3/uL (2.7-7.7); Neutrophil % 67.1 % (47-70); Platelet Count 200 K/mm3 (150-450); RBC Distribution Width CV 13.3 % (11.6-14.6); RBC Distribution Width SD 47.8 fl (35.1-43.9); Red Blood Count 4.49 M/mm3 (4.2-5.4); White Blood Count 5.8 K/mm3 (4.4-11.0)
[2021-03-07 18:50] LABS: ALB/GLOB Ratio 0.9 RATIO (0.9-2.4); AST(SGOT) 20 U/L (15-37); Alanine Aminotransfer ALT/SGPT 32 U/L (13-56); Albumin, Serum 3.5 g/dL (3.2-5.0); Alkaline Phosphatase 53 U/L (45-117); Anion Gap 7 (5-15); BUN 18 mg/dL (7-18); BUN/Creat Ratio 28.9 RATIO (10-20); Calcium,Total 8.8 mg/dL (8.5-10.1); Chloride 102 mmol/L (98-107); Creatinine, Serum 0.62 mg/dL (0.55-1.02); EST Glomerular Filtration Rate 99 mL/min (>60); Est Glom Filt Rate - Afr Amer 120 mL/min (>60); Globulin 3.9 g/dL (2.2-4.2); Glucose 165 mg/dL (74-106); Potassium 3.7 mmol/L (3.5-5.1); Protein, Total 7.4 g/dL (6.4-8.2); Sodium Level 139 mmol/L (136-145)
== END ==
PROVIDERS: PCP Internal Medicine; Referring Provider Internal Medicine Rheumatology; Visit Provider Internal Medicine Rheumatology
DX: M06.00 Rheumatoid arthritis without rheumatoid factor, unspecified site (principal); M19.041 Primary osteoarthritis, right hand; M47.897 Other spondylosis, lumbosacral region; I69.30 Unspecified sequelae of cerebral infarction; E11.42 Type 2 diabetes mellitus with diabetic polyneuropathy; I10 Essential (primary) hypertension; G30.9 Alzheimer's disease, unspecified; F32.89 Other specified depressive episodes; R32 Unspecified urinary incontinence; E78.5 Hyperlipidemia, unspecified
CPT/HCPCS: 36415; 80053; 85025

== ENCOUNTER → 2021-05-19 13:32 | Outpatient (CLI) | payer MEDICARE, SELFPAY ==
[2021-05-19 15:09] LABS: Absolute Neutrophil Count 3.3 X10^3/uL (2.0-7.7); Basophil# 0.03 X10^3/uL; Basophil% 0.6 % (0-1); Eosinophil# 0.15 X10^3/uL; Eosinophils% 2.9 % (0-5); Hematocrit 40.7 % (37-47); Hemoglobin 13.1 g/dL (12.0-15.0); Lymphocyte % 25.2 % (19-41); Mean Corp Hgb Conc 32.2 g/dL (32-36); Mean Corpuscular Volume 96.4 fL (81-99); Mean Platelet Vol. 10.9 fl (6.2-12.0); Monocyte# 0.41 X10^3/uL; NRBC Flagged by Analyzer 0 % (0-5); Neutrophil # 3.25 X10^3/uL (2.7-7.7); Neutrophil % 63.1 % (47-70); Platelet Count 207 K/mm3 (150-450); RBC Distribution Width CV 13.6 % (11.6-14.6); RBC Distribution Width SD 48.6 fl (35.1-43.9); Red Blood Count 4.22 M/mm3 (4.2-5.4); White Blood Count 5.2 K/mm3 (4.4-11.0)
[2021-05-19 15:28] LABS: ALB/GLOB Ratio 0.8 RATIO (0.9-2.4); AST(SGOT) 19 U/L (15-37); Alanine Aminotransfer ALT/SGPT 21 U/L (13-56); Albumin, Serum 3.2 g/dL (3.2-5.0); Alkaline Phosphatase 55 U/L (45-117); Anion Gap 6 (5-15); BUN 19 mg/dL (7-18); BUN/Creat Ratio 25.9 RATIO (10-20); Calcium,Total 9.2 mg/dL (8.5-10.1); Chloride 104 mmol/L (98-107); Creatinine, Serum 0.74 mg/dL (0.55-1.02); EST Glomerular Filtration Rate 82 mL/min (>60); Est Glom Filt Rate - Afr Amer 99 mL/min (>60); Globulin 4.1 g/dL (2.2-4.2); Glucose 131 mg/dL (74-106); Potassium 3.5 mmol/L (3.5-5.1); Protein, Total 7.3 g/dL (6.4-8.2); Sodium Level 139 mmol/L (136-145)
== END ==
PROVIDERS: PCP Internal Medicine; Referring Provider Internal Medicine Rheumatology; Visit Provider Internal Medicine Rheumatology
DX: M06.042 Rheumatoid arthritis without rheumatoid factor, left hand (principal); M19.041 Primary osteoarthritis, right hand; M47.897 Other spondylosis, lumbosacral region; I69.30 Unspecified sequelae of cerebral infarction; E11.42 Type 2 diabetes mellitus with diabetic polyneuropathy; I10 Essential (primary) hypertension; G30.9 Alzheimer's disease, unspecified; F32.89 Other specified depressive episodes; R32 Unspecified urinary incontinence; E78.5 Hyperlipidemia, unspecified; Z79.899 Other long term (current) drug therapy
CPT/HCPCS: 36415; 80053; 85025

== ENCOUNTER → 2021-06-12 15:57 | Outpatient (CLI) | payer MEDICARE, SELFPAY ==
[2021-06-12 16:38] LABS: Hematocrit 44.5 % (37-47); Hemoglobin 14.1 g/dL (12.0-15.0); Mean Corp Hgb Conc 31.7 g/dL (32-36); Mean Corpuscular Hgb 30.4 pg (27.0-32.0); Mean Corpuscular Volume 95.9 fL (81-99); Mean Platelet Vol. 11.1 fl (6.2-12.0); Platelet Count 244 K/mm3 (150-450); RBC Distribution Width CV 13.6 % (11.6-14.6); RBC Distribution Width SD 48.3 fl (35.1-43.9); Red Blood Count 4.64 M/mm3 (4.2-5.4); White Blood Count 7.1 K/mm3 (4.4-11.0)
[2021-06-12 16:50] LABS: ALB/GLOB Ratio 0.9 RATIO (0.9-2.4); AST(SGOT) 19 U/L (15-37); Alanine Aminotransfer ALT/SGPT 24 U/L (13-56); Albumin, Serum 3.4 g/dL (3.2-5.0); Alkaline Phosphatase 61 U/L (45-117); Anion Gap 6 (5-15); BUN 21 mg/dL (7-18); BUN/Creat Ratio 26.9 RATIO (10-20); Calcium,Total 9.4 mg/dL (8.5-10.1); Chloride 104 mmol/L (98-107); Cholesterol 158 mg/dL (200); Creatinine, Serum 0.78 mg/dL (0.55-1.02); EST Glomerular Filtration Rate 76 mL/min (>60); Est Glom Filt Rate - Afr Amer 92 mL/min (>60); Globulin 3.9 g/dL (2.2-4.2); Glucose 184 mg/dL (74-106); High Density Lipoprotein 93 mg/dL; Protein, Total 7.3 g/dL (6.4-8.2); Sodium Level 142 mmol/L (136-145); Triglycerides 49 mg/dL; Uric Acid 3.8 mg/dL (2.6-6.0); Very Low Density Lipoprotein 10 mg/dL (5-40)
[2021-06-12 16:54] LABS: Hemoglobin A1c 5.8 % (3.8-5.6)
== END ==
PROVIDERS: PCP Internal Medicine; Visit Provider Internal Medicine
DX: E11.42 Type 2 diabetes mellitus with diabetic polyneuropathy (principal); I10 Essential (primary) hypertension; E11.51 Type 2 diabetes mellitus with diabetic peripheral angiopathy without gangrene; Z79.02 Long term (current) use of antithrombotics/antiplatelets; Z79.52 Long term (current) use of systemic steroids
CPT/HCPCS: 80053; 80061; 83036; 84550; 85027

== ENCOUNTER 2021-09-25 13:29 | Outpatient (CLI) | payer MEDICARE, SELFPAY ==
[2021-09-25 14:05] LABS: Color, Urine Yellow (Yellow); Glucose, Dipstick Normal (Normal); Ketone-Dipstick Negative (Negative); Leukocyte Esterase-Dipstick 25 /ul (Negative); Nitrite-Dipstick Positive (Negative); Occult Blood-Urine Negative /ul (Negative); Protein-Dipstick Negative (Negative); Specific Gravity, Urine 1.015 (1.002-1.030); Urine Bilirubin Dipstick Negative (Negative); Urine Clarity Sl. Cloudy (Clear); Urine Urobilinogen Normal (Normal)
[2021-09-25 14:24] LABS: Microalbumin,Random Urine 19.8 mg/L (NO RANGE EST.)
== END 2021-09-25 23:59 | disposition home or self-care (01) ==
LOC: LABSPEC 13:31
PROVIDERS: PCP Internal Medicine; Referring Provider Internal Medicine; Visit Provider Internal Medicine
DX: Z87.440 Personal history of urinary (tract) infections (principal)
CPT/HCPCS: 81002; 82043; 82570; 87077; 87086; 87088; 87186

== ENCOUNTER 2022-02-28 20:55 | Inpatient (IN) | payer MEDICARE, SELFPAY ==
[2022-02-28 20:57] VITALS: BP 161/66; PULSE 87; RESP 26; TEMP 37.4; O2SAT 93; BMI 37.3
--- NOTE | 2022-02-28 21:17 | CT_ITS ---
EXAM: CT ABDOMEN AND PELVIS WITH INTRAVENOUS CONTRAST CLINICAL INDICATION: lower abd pain TECHNIQUE: Helically acquired images were obtained of the abdomen and pelvis with intravenous contrast. CTDIvol = ( 18.71 ) mGy, DLP = ( 1214.31 ) mGycm This CT exam was performed using one or more of the following dose reduction techniques: automated exposure control, adjustment of the mA and/or kV according to patient size, and/or use of iterative reconstruction technique. This report was created using [employer] / [employer] report generation technology. CONTRAST: IV 100mL Isovue-370 COMPARISON: None. FINDINGS: LOWER THORAX: Scattered calcified granulomas. Mild dependent atelectasis at the posterior lower lobes. Moderate size pericardial effusion. ABDOMEN: LIVER: Unremarkable. Homogeneous. No focal mass. GALLBLADDER AND BILE DUCTS: Unremarkable. No calcified gallstones. No gallbladder distention or wall edema. No intra- or extrahepatic biliary ductal dilation. PANCREAS: Unremarkable. No focal cystic or solid mass. SPLEEN: Unremarkable. Normal size without focal cystic or solid mass. ADRENALS: Unremarkable. No nodules. KIDNEYS AND URETERS: Unremarkable. Normal renal size and position. No hydronephrosis. STOMACH AND BOWEL: Distal colonic diverticulosis but no acute diverticulitis. No colitis. No bowel obstruction. PELVIS: APPENDIX: No evidence of acute appendicitis. BLADDER: Unremarkable. REPRODUCTIVE: Unremarkable as visualized. No mass. ABDOMEN and PELVIS: INTRAPERITONEAL SPACE: Unremarkable. No ascites or other fluid collection. No free air. BONES/JOINTS: Degenerative changes of the spine. Degenerative changes of the pelvis. No unusual lytic or sclerotic lesions of bone. SOFT TISSUES: Unremarkable. No discrete abdominal or pelvic wall hernia. VASCULATURE: Calcific coronary arteriosclerosis. Abdominal aorta is non-dilated. LYMPH NODES: Unremarkable. No enlarged lymph nodes. CT/Abdomen/Pelvis W IV Cont ONLY IMPRESSION: 1. No acute or inflammatory disease or bowel obstruction involving the abdomen/pelvis 2. Moderate size pericardial effusion. Electronically Signed: Tone Wilkerson MD at 23:33 EDT ,
--- NOTE | 2022-02-28 21:19 | ED.VIS.GI ---
HPI HPI - GI History of Present Illness Chief Complaint: Abd Pain Informant: patient Abdominal Pain/Flank Pain Onset: Days Context: Gradual Onset Timing: Continuous Quality: Aching and Cramping Location: RLQ and LLQ Current Severity: Mild Maximum Severity: Moderate Worsened by: Nothing Relieved by: Nothing Nausea/Vomiting/Emesis GI Symptom: Positive for Nausea; Negative for Vomiting Onset: Today Severity: Mild Diarrhea/Melena/Hematochezia GI Symptom: Negative for Diarrhea, Melena or Hematochezia Associated Symptoms Associated Symptoms: Negative for Dysuria, Frequency, Hematuria or Urgency Narrative Narrative: 76-year-old female history of stroke, dementia, diabetes, prior appendectomy. Complaining of lower abdominal pain for 2 to 3 days associated nausea no vomiting. No diarrhea. No fever. Mild chills. No dysuria. Prior appendectomy. Family members are positive for COVID she does not believe she has it. Prior similar symptoms: No Recent Illness/Hospitalization: No PFSH PFSH Medical History (Updated 03/01/22 @ 00:[address] Salinas Palomino MD) Carotid stenosis, right Confusion CVA (cerebral infarction) (11/2012) Dementia associated with other underlying disease with behavioral disturbance Depression Diabetic neuropathy Difficulty walking Essential hypertension History of suicide attempt Hyperlipidemia Left hemiparesis Localized swelling of both lower legs mechanical fall Obesity Physical debility Pre-operative cardiovascular examination Pulmonary hypertension Right bundle branch block Tobacco abuse Type 2 diabetes mellitus UTI (urinary tract infection) Weakness Home Medications escitalopram oxalate 20 mg tablet 20 mg PO QHS mood enhancer 06/14/17 [History Last Taken 10/23/18] memantine 10 mg tablet 10 mg PO BID dementia 06/08/18 [History Last Taken 10/23/18] aspirin 81 mg chewable tablet 81 mg PO DAILY@0800 heart 06/10/18 [History Last Taken 10/22/18] atorvastatin 40 mg tablet 40 mg PO QHS cholesterol 06/10/18 [History Last Taken 10/23/18] clopidogrel 75 mg tablet 75 mg PO DAILY blood thinner 06/10/18 [History Last Taken 10/22/18] hydroxychloroquine 200 mg tablet (Plaquenil) 200 mg PO BID arthritis 09/08/18 [History Last Taken 10/22/18] amlodipine 10 mg tablet 10 mg PO DAILY bp 10/24/18 [History Last Taken 10/22/18] cranberry 500 mg capsule 500 mg PO DAILY urinary 10/24/18 [History Last Taken 10/22/18] galantamine 24 mg 24 hr capsule,extended release 24 mg PO QHS dementia 10/24/18 [History Last Taken 10/23/18] lisinopril 20 mg-hydrochlorothiazide 12.5 mg tablet 1 ea PO DAILY 10/24/18 [History Last Taken 10/22/18] multivit with kwovfmah-stip-JA-lutein 8 mg iron-400 mcg-300 mcg tablet 1 tab PO DAILY sipplement 10/24/18 [History Last Taken 10/22/18] melatonin 10 mg capsule 10 mg PO HS 04/27/19 [History Last Taken Unknown] potassium chloride 20 mEq tablet,extended release(part/cryst) 40 meq PO DAILY otassium 01/18/20 [History Last Taken Unknown] zolpidem 5 mg tablet 5 mg PO QHS PRN 01/18/20 [History Last Taken Unknown] loperamide 2 mg capsule 2 mg PO DAILY PRN 07/25/20 [History Last Taken Unknown] turmeric 400 mg capsule 400 mg PO DAILY 07/25/20 [History Last Taken Unknown] metformin 500 mg tablet,extended release 24 hr 500 mg PO BID 07/23/21 [History Last Taken Unknown] pioglitazone 15 mg tablet 15 mg PO DAILY 07/23/21 [History Last Taken Unknown] prochlorperazine maleate 10 mg tablet 10 mg PO Q6H PRN 07/23/21 [History Last Taken Unknown] Allergy/AdvReac Type Severity Reaction Status Date / Time promethazine HCl AdvReac Nausea Verified 02/28/22 20:56 [From Phenergan] Family History Father Alcoholism Depression Son Alcoholism Depression Diabetes Hypertension Daughter Alcoholism Asthma Depression Hypertension Migraines Mother Breast cancer Depression Surgical History History of appendectomy History of carotid endarterectomy (~10/2018) History of dilation and curettage History of tonsillectomy and adenoidectomy History of tubal ligation Status post lumbar spine surgery for decompression of spinal cord Social History Smoking Status: Former smoker pack-years: 25 how long ago did patient quit smokin years ago alcohol intake: never substance use type: does not use caffeine: Yes Type: coffee Number of servings: 2 ROS ROS ED ROS Narrative Lower abdominal discomfort. Nausea. Review of Systems ROS Unobtainable: Denies due to encephalopathy Constitutional Constitutional ED: Reports chills; Denies fever(s) ENT ENT ED: Denies ear pain Cardiovascular Cardiovascular: Denies chest pain Respiratory/Chest Respiratory/Chest: Denies cough or dyspnea Gastrointestinal Gastrointestinal: Reports abdominal pain and nausea; Denies constipation, diarrhea, melena or vomiting Genitourinary Genitourinary ED: Denies dysuria or hematuria Musculoskeletal Musculoskeletal: Denies arthralgias Integumentary Denies abscess Neurologic Neurologic: Denies headache(s) Psychiatric Psychiatric: Denies anxiety Endocrine Endocrinology: Denies polydipsia Hematologic/Lymphatic Hematologic/Lymphatic: Denies easy bleeding Allergic/Immunologic Allergic/Immunologic ED: Denies mouth swelling EXAM Physical Exam Narrative Exam Narrative: 76-year-old female no acute distress vital signs stable temperature nine 9.3. Does not look septic or toxic. H EENT exam mild DryMax members. Neck nontender. Lungs clear to auscultation. Heart regular rate and rhythm rate about 85 no murmur. Abdomen soft minimal suprapubic tenderness. No rebound guarding rigidity. No hernia or mass. No obstruction. Right upper and right lower quadrants are unremarkable. Patient moving all 4 extremities. Nontender. Neurologically she is awake and alert. Answering questions following commands. Const Vital Signs: 02/28/22 20:57 02/28/22 21:47 02/28/22 23:16 Temperature 99.3 F H 98.6 F 98.5 F Temperature Source Oral Oral Oral Pulse Rate 87 83 84 Respiratory Rate 93 H 22 H 20 H Blood Pressure 161/66 H 162/66 H 175/69 H Blood Pressure Mean 97 98 104 Pulse Ox 26 92 87 Oxygen Delivery Method Room Air Room Air Room Air Positive well nourished, well developed and obese; Negative for cachectic, contractures or unkempt General Appearance ED: well developed and NAD; Negative for unkempt, cachectic, contractures or pallor Nutritional Appearance: obese; Negative for cachectic HEENT Reports dry mucous membranes normocephalic and atraumatic; Negative for trauma or tenderness Mouth ED: Yes dry mucous membranes Mouth: dry mucous membranes Eyes PERRL and EOMs intact bilaterally General Eye ED: Negative for pale conjunctiva or scleral icterus Neck no lymphadenopathy, supple and no JVD General: Negative for tenderness Carotids: Negative for other Lymph Lymphatic: Negative for other Resp normal respiratory effort and clear to auscultation bilaterally Effort and Inspection: Negative for respiratory distress or retractions Auscultation: Negative for rales, rhonchi or wheezes Cardio regular rate, regular rhythm, S1 normal heart sound, S2 normal heart sound and no murmurs Rate: Negative for bradycardia Rhythm: Negative for abnormal rhythm GI non-distended and no masses; Negative for non-tender Inspection: Negative for abdominal distention Auscultation: normoactive bowel sounds Palpation: soft and tender; Negative for guarding, rigid, hepatomegaly, splenomegaly, hernia, mass or pulsatile mass Back/Spine no CVA tenderness General Back: Negative for CVA tenderness Cervical Spine: Negative for cervical spine tenderness Thoracic Spine / Upper Back: Negative for thoracic spinal tenderness Lumbar Spine / Lower Back: Negative for lumbar spinal tenderness Coccyx: Negative for other Extremity full ROM General Extremety ED: Negative for edema or tenderness General Extremity: Negative for edema Neuro moves all extremities Sensorium / Orientation: alert, oriented to person, oriented to place and oriented to time; Negative for orientation impaired, confused, lethargic or stuporous Motor Exam: strength 5/5 throughout Psych mental status grossly normal Appearance: Negative for unkempt Attitude: No agitated Mood & Affect: Negative for depressed or anxious Skin no wounds General Skin Exam: Negative for jaundice or pallor Lesions: no lesions Rashes: no rashes MDM MDM MDM Narrative Medical decision making narrative: 76-year-old complaining of mild lower quadrant abdominal pain with nausea. Treated with IV fluids and Zofran for nausea. CAT scan labs pending. While the patient was awaiting final test results she became hypoxic in the emergency department. With a good waveform she was in the 87% range on her pulse ox. Placed on oxygen she easily went up to mid 90s. Nurses ambulated her without oxygen and again her pulse ox fell into the mid 80s. She felt weak and fell like she may pass out. She had an episode of nausea and vomiting. She is COVID-positive. I suspect this is the cause of her hypoxia. I will speak to the hospitalist about admission. Lab Data Attestation: I reviewed the patient's lab results. Lab results narrative: CBC unremarkable white count of 4.8. H&H of 13 and 40. Platelets 180. Electrolytes show a gap of 6 BUN and creatinine are 19 and 0.8. Glucose 197. Liver enzymes unremarkable. Lipase normal at 58. Urinalysis negative. No nitrates. No red or white cells. CAT scan showed chronic changes. Incidental finding of pericardial effusion. Labs: Laboratory Results - last 24 hr 02/28/22 02/28/22 02/28/22 21:31 21:31 21:31 WBC 4.8 RBC 4.29 Hgb 13.3 Hct 40.9 MCV 95.3 MCH 31.0 MCHC 32.5 RDW Std Deviation 49.1 H RDW Coeff of Carrie 14.0 Plt Count 180 MPV 10.9 Immature Gran % (Auto) 0.400 Neut % (Auto) 72.1 H Lymph % (Auto) 8.3 L [place] % (Auto) 16.9 H Eos % (Auto) 1.7 Baso % (Auto) 0.6 Absolute Neuts (auto) 3.5 Absolute Lymphs (auto) 0.40 L Nucleated RBC % 0 Differential Comment SCANNED Platelet Estimate ADEQUATE RBC Morphology NORM C+C Sodium 139 Potassium 4.0 Chloride 105 Carbon Dioxide 28.0 Anion Gap 6 BUN 19 H Creatinine 0.85 Estim Creat Clear Calc 48.62 Est GFR (MDRD) Af Amer 84 Est GFR (MDRD) Non-Af 69 BUN/Creatinine Ratio 22.4 H Glucose 197 H Calcium 9.3 Total Bilirubin 0.40 AST 22 ALT 24 Alkaline Phosphatase 57 Total Protein 7.6 Albumin 3.4 Globulin 4.2 Albumin/Globulin Ratio 0.8 L Lipase 58 L Urine Color Yellow Urine Clarity Clear Urine pH 6.0 Ur Specific [place] 1.025 Urine Protein 15 H Urine Glucose (UA) Normal Urine Ketones Negative Urine Occult Blood 10 H Urine Nitrite Negative Urine Bilirubin Negative Urine Urobilinogen Normal Ur Leukocyte Esterase Negative Urine RBC 0-5 SEEN Urine WBC 0 SEEN Ur Squamous Epith Cells 0-5 SEEN Urine Bacteria 0 SEEN Urine Mucus 0 SEEN Radiography Diagnostic Testing: Clinical Impression(s) from Imaging Studies Abdomen/Pelvis CT 02/28/22 21:17 IMPRESSION: 1. No acute or inflammatory disease or bowel obstruction involving the abdomen/pelvis 2. Moderate size pericardial effusion. Electronically Signed: Tone Wilkerson MD at 23:33 EDT , Chest X-Ray 02/28/22 23:45 IMPRESSION: Airspace disease involving the left lower lobe obscuring the left hemidiaphragm. Consider atelectasis, aspiration, and/or infiltrate. A small left pleural effusion is not excluded. Electronically Signed: Tone Wilkerson MD at 0:03 EDT , Chest x-ray, portable, single view interpreted by myself shows normal cardiac silhouette. No infiltrate. No signs of COVID on the chest x-ray. There is haziness of the left hemidiaphragm which may be secondary to confusion. Discharge Plan Dx/Rx/DC Orders Clinical Impression: COVID-19, Type 2 diabetes mellitus, Abdominal pain, Hypoxia Disposition Disposition: Acute Care Hospital [facility]
[2022-02-28] MEDS: 0.9% Normal Saline 1,000 ML 1000 ML IV (21:45)
[2022-02-28] MEDS: Ondansetron 4 MG/2 ML Vial IV (21:46)
[2022-02-28 21:47] VITALS: BP 162/66; PULSE 83; RESP 22; TEMP 37; O2SAT 92
[2022-02-28 21:50] LABS: Bacteria 0 SEEN /hpf (None Seen); Mucous, Urine 0 SEEN /hpf (<or=2+); White Blood Cells 0 SEEN /hpf (0-5)
[2022-02-28 21:51] LABS: Absolute Neutrophil Count 3.5 X10^3/uL (2.0-7.7); Basophil# 0.03 X10^3/uL; Basophil% 0.6 % (0-1); Eosinophil# 0.08 X10^3/uL; Eosinophils% 1.7 % (0-5); Hematocrit 40.9 % (37-47); Hemoglobin 13.3 g/dL (12.0-15.0); Lymphocyte % 8.3 % (19-41); Mean Corp Hgb Conc 32.5 g/dL (32-36); Mean Corpuscular Volume 95.3 fL (81-99); Mean Platelet Vol. 10.9 fl (6.2-12.0); Monocyte# 0.82 X10^3/uL; Monocyte% 16.9 % (0-10); NRBC Flagged by Analyzer 0 % (0-5); Neutrophil # 3.49 X10^3/uL (2.7-7.7); Neutrophil % 72.1 % (47-70); POSITIVE DIFFERENTIAL YES; Platelet Count 180 K/mm3 (150-450); RBC Distribution Width SD 49.1 fl (35.1-43.9); Red Blood Count 4.29 M/mm3 (4.2-5.4); White Blood Count 4.8 K/mm3 (4.4-11.0)
[2022-02-28 21:52] LABS: Color, Urine Yellow (Yellow); Glucose, Dipstick Normal (Normal); Ketone-Dipstick Negative (Negative); Leukocyte Esterase-Dipstick Negative /ul (Negative); Nitrite-Dipstick Negative (Negative); Occult Blood-Urine 10 /ul (Negative); Protein-Dipstick 15 mg/dl (Negative); Specific Gravity, Urine 1.025 (1.002-1.030); Urine Bilirubin Dipstick Negative (Negative); Urine Clarity Clear (Clear); Urine Urobilinogen Normal (Normal)
[2022-02-28 21:57] LABS: ALB/GLOB Ratio 0.8 RATIO (0.9-2.4); AST(SGOT) 22 U/L (15-37); Alanine Aminotransfer ALT/SGPT 24 U/L (13-56); Albumin, Serum 3.4 g/dL (3.2-5.0); Alkaline Phosphatase 57 U/L (45-117); Anion Gap 6 (5-15); BUN 19 mg/dL (7-18); BUN/Creat Ratio 22.4 RATIO (10-20); Calcium,Total 9.3 mg/dL (8.5-10.1); Chloride 105 mmol/L (98-107); Creatinine, Serum 0.85 mg/dL (0.55-1.02); EST Glomerular Filtration Rate 69 mL/min (>60); Est Glom Filt Rate - Afr Amer 84 mL/min (>60); Estimated Creatinine Clearance 48.62 ml/min; Globulin 4.2 g/dL (2.2-4.2); Glucose 197 mg/dL (74-106); Lipase 58 U/L (73-393); Protein, Total 7.6 g/dL (6.4-8.2); Sodium Level 139 mmol/L (136-145)
[2022-02-28 21:58] LABS: Red Blood Cells-Urine 0-5 SEEN /hpf (0-5); Squamous Epithelial Cells - UA 0-5 SEEN /hpf (5-10)
[2022-02-28 22:00] LABS: Differential Indicated SCAN CRITERIA MET
[2022-02-28 22:29] LABS: Differential Comment SCANNED; Platelet Estimate ADEQUATE (ADEQ); Red Cell Morphology NORM C+C NORMAL (NORM C&C)
[2022-02-28 23:16] VITALS: BP 175/69; PULSE 84; RESP 20; TEMP 36.9; O2SAT 87
[2022-02-28] MEDS: Acetaminophen 500 MG Tablet 1000 MG PO (23:17)
--- NOTE | 2022-02-28 23:45 | RAD_ITS ---
EXAM: XR CHEST, 1 VIEW CLINICAL INDICATION: covid TECHNIQUE: Frontal view of the chest. This report was created using [employer] report generation technology. 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 Airspace disease involving the left lower lobe obscuring the left hemidiaphragm. Consider atelectasis, aspiration, and/or infiltrate. A small left pleural effusion is not excluded. Low lung volumes limits assessment. No pneumothorax. HEART: Unremarkable. Cardiac silhouette not enlarged. MEDIASTINUM: Central airways and mediastinal contour are unremarkable. BONES/JOINTS: Degenerative changes of acromioclavicular joints and spine. SOFT TISSUES: Unremarkable. RAD/Chest 1 View (Portable) IMPRESSION: Airspace disease involving the left lower lobe obscuring the left hemidiaphragm. Consider atelectasis, aspiration, and/or infiltrate. A small left pleural effusion is not excluded. Electronically Signed: Tone Wilkerson MD at 0:03 EDT ,
[2022-03-01] VITALS (15 sets, daily range): BP systolic 127–168; BP diastolic 63–80; PULSE 65–89; RESP 18–24; TEMP 36.4–37.8; O2SAT 88–98; BMI 36.4
--- NOTE | 2022-03-01 00:13 | ED.RN ---
This RN and NAIL SPECIALIST in room for ambulatory pulse ox. patient to side of bed with walker, able to stand and take 2 steps. patient's O2 at 88%, patient reporting that she felt like she was going to faint and became nauseous. Patient back to bed and emesis x1. reported all to Dr Palomino.
--- NOTE | 2022-03-01 00:14 | EKG12_ITS ---
Test Reason : Blood Pressure : / mmHG Vent. Rate : 094 BPM Atrial Rate : 093 BPM P-R Int : 200 ms QRS Dur : 144 ms QT Int : 404 ms P-R-T Axes : 071 -68 018 degrees QTc Int : 505 ms Undetermined rhythm : Consider Sinus Rhythm with PSVC's Left axis deviation Right bundle branch block Abnormal ECG Confirmed by JUJU BERG, FIDENCIO ([id number]), writer editor STEFANIE DOZIER ([id number]) on 03/03/2022 12:49:43 PM Referred By: SANYA Confirmed By:FIDENCIO MATUTE MD
--- NOTE | 2022-03-01 00:37 | HP.PCM.HOS_ITS ---
HPI - General General Date of Admission: 03/01/22 Date of Service: 03/01/22 Chief Complaint: Nausea HPI Narrative EVARISTO WESTFALL, is a 76 F with a significant history of mild dementia; diabetes mellitus; CVA; and rheumatoid arthritis on hydroxychloroquine who presents to the emergency department with 4-day history of persistent nausea. Reportedly at the emergency department patient was initially hypoxic and was placed on nasal cannula oxygen. She was eventually weaned off to nasal cannula oxygen and made to ambulate. With few steps reportedly patient was lightheaded; she was weak and she vomited. Reportedly her oxygen saturation dropped to below 90. A decision was made for patient to stay at the hospital. Patient denies feeling short of breath. She denies a fever. She denies any abdominal pain. She denies constipation or diarrhea. She reports chronic left foot swelling. Of note patient report that her daughter and her daughter's boyfriend has COVID for the past 3 days. Patient reports receiving 2 doses of COVID-19 virus without a booster. [facility] Medical History Carotid stenosis, right Confusion CVA (cerebral infarction) (11/2012) Dementia associated with other underlying disease with behavioral disturbance Depression Diabetic neuropathy Difficulty walking Essential hypertension History of suicide attempt Hyperlipidemia Left hemiparesis Localized swelling of both lower legs mechanical fall Obesity Physical debility Pre-operative cardiovascular examination Pulmonary hypertension Right bundle branch block Tobacco abuse Type 2 diabetes mellitus UTI (urinary tract infection) Weakness Home Medications escitalopram oxalate 20 mg tablet 20 mg PO QHS mood enhancer 06/14/17 [History Last Taken 10/23/18] memantine 10 mg tablet 10 mg PO BID dementia 06/08/18 [History Last Taken 10/23/18] aspirin 81 mg chewable tablet 81 mg PO DAILY@0800 heart 06/10/18 [History Last Taken 10/22/18] atorvastatin 40 mg tablet 40 mg PO QHS cholesterol 06/10/18 [History Last Taken 10/23/18] clopidogrel 75 mg tablet 75 mg PO DAILY blood thinner 06/10/18 [History Last T aken 10/22/18] hydroxychloroquine 200 mg tablet (Plaquenil) 200 mg PO BID arthritis 09/08/18 [History Last Taken 10/22/18] amlodipine 10 mg tablet 10 mg PO DAILY bp 10/24/18 [History Last Taken 10/22/18] cranberry 500 mg capsule 500 mg PO DAILY urinary 10/24/18 [History Last Taken 10/22/18] galantamine 24 mg 24 hr capsule,extended release 24 mg PO QHS dementia 10/24/18 [History Last Taken 10/23/18] melatonin 10 mg capsule 10 mg PO HS 04/27/19 [History Last Taken Unknown] potassium chloride 20 mEq tablet,extended release(part/cryst) 40 meq PO DAILY otassium 01/18/20 [History Last Taken Unknown] zolpidem 5 mg tablet 5 mg PO QHS PRN 01/18/20 [History Last Taken Unknown] loperamide 2 mg capsule 2 mg PO DAILY PRN 07/25/20 [History Last Taken Unknown] turmeric 400 mg capsule 400 mg PO DAILY 07/25/20 [History Last Taken Unknown] metformin 500 mg tablet,extended release 24 hr 500 mg PO BID 07/23/21 [History Last Taken Unknown] pioglitazone 15 mg tablet 15 mg PO DAILY 07/23/21 [History Last Taken Unknown] dicyclomine 10 mg capsule 10 mg PO BID IBS 03/01/22 [History Last Taken Unknown] lisinopril 20 mg-hydrochlorothiazide 12.5 mg tablet 1 tab PO DAILY blood pressure 03/01/22 [History Last Taken Unknown] Allergy/AdvReac Type Severity Reaction Status Date / Time promethazine HCl AdvReac Nausea Verified 02/28/22 20:56 [From Phenergan] Family History Father Alcoholism Depression Son Alcoholism Depression Diabetes Hypertension Daughter Alcoholism Asthma Depression Hypertension Migraines Mother Breast cancer Depression Surgical History History of appendectomy History of carotid endarterectomy (~10/2018) History of dilation and curettage History of tonsillectomy and adenoidectomy History of tubal ligation Status post lumbar spine surgery for decompression of spinal cord Social History Smoking Status: Former smoker pack-years: 25 how long ago did patient quit smokin years ago alcohol intake: never substance use type: does not use caffeine: Yes Type: coffee Number of servings: 2 ROS ROS Narrative Pertinent positives and pertinent negatives as noted in HPI. All other systems were reviewed and are negative Vital Signs Vital Signs Vital Signs: 02/28/22 20:57 02/28/22 21:47 02/28/22 23:16 Temperature 99.3 F H 98.6 F 98.5 F Temperature Source Oral Oral Oral Pulse Rate 87 83 84 Respiratory Rate 26 H 22 H 20 H Blood Pressure 161/66 H 162/66 H 175/69 H Blood Pressure Mean 97 98 104 Pulse Ox 93 92 87 Oxygen Delivery Method Room Air Room Air Room Air Weight Weight: 98.8 kg Body Mass Index (BMI) 37.3 Physical Exam Narrative Physical exam: General: Well-nourished, well-developed. Head: Normocephalic, atraumatic, no tenderness Eyes: Vision is grossly intact. EOMI ENT, no trauma, no rhinorrhea Neck: Nontender, full range of motion CVS: Regular rate and rhythm. S1-S2 present. No murmur, gallop or rub. Respiratory : clear to auscultation bilaterally, chest wall nontender, no wheezing Abdomen: Soft, nontender, nondistended, normal bowel sounds, no masses : Deferred Back: Nontender, no CVA tenderness Extremities: Swelling left foot. Nontender Skin: Normal color, no trauma, abrasions Neuro: Alert, oriented, cranial nerves II through XII grossly intact. Psychiatry: Normal mood. Normal affect. Not depressed. Not anxious. Results Lab / Micro Data Result Diagrams: 02/28/22 21:31 02/28/22 21:31 Labs: Laboratory Results - last 24 hr 02/28/22 21:31: WBC 4.8, RBC 4.29, Hgb 13.3, Hct 40.9, MCV 95.3, MCH 31.0, MCHC 32.5, RDW Std Deviation 49.1 H, RDW Coeff of [place] 14.0, Plt Count 180, MPV 10.9, Immature Gran % (Auto) 0.400, Neut % (Auto) 72.1 H, Lymph % (Auto) 8.3 L, [place] % (Auto) 16.9 H, Eos % (Auto) 1.7, Baso % (Auto) 0.6, Absolute Neuts (auto) 3.5, Absolute Lymphs (auto) 0.40 L, Nucleated RBC % 0, Differential Comment SCANNED, Platelet Estimate ADEQUATE, RBC Morphology NORM C+C 02/28/22 21:31: Sodium 139, Potassium 4.0, Chloride 105, Carbon Dioxide 28.0, Anion Gap 6, BUN 19 H, Creatinine 0.85, Estim Creat Clear Calc 48.62, Est GFR (MDRD) Af Amer 84, Est GFR (MDRD) Non-Af 69, BUN/Creatinine Ratio 22.4 H, Glucose 197 H, Calcium 9.3, Total Bilirubin 0.40, AST 22, ALT 24, Alkaline Phosphatase 57, Total Protein 7.6, Albumin 3.4, Globulin 4.2, Albumin/Globulin Ratio 0.8 L, Lipase 58 L 02/28/22 21:31: Urine Color Yellow, Urine Clarity Clear, Urine pH 6.0, Ur Specific [place] 1.025, Urine Protein 15 H, Urine Glucose (UA) Normal, Urine Ketones Negative, Urine Occult Blood 10 H, Urine Nitrite Negative, Urine Bilirubin Negative, Urine Urobilinogen Normal, Ur Leukocyte Esterase Negative, Urine RBC 0-5 SEEN, Urine WBC 0 SEEN, Ur Squamous Epith Cells 0-5 SEEN, Urine Bacteria 0 SEEN, Urine Mucus 0 SEEN Micro: Microbiology 02/28/22 21:31 Nasal Secretion SARS-CoV-2 Antigen (Rapid) - Final SARS-CoV-2 (COVID 19) Radiology Impression Abdomen/Pelvis CT 02/28/22 21:17 IMPRESSION: 1. No acute or inflammatory disease or bowel obstruction involving the abdomen/pelvis 2. Moderate size pericardial effusion. Electronically Signed: Tone Wilkerson MD at 23:33 EDT , Chest X-Ray 02/28/22 23:45 IMPRESSION: Airspace disease involving the left lower lobe obscuring the left hemidiaphragm. Consider atelectasis, aspiration, and/or infiltrate. A small left pleural effusion is not excluded. 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 Positive coronavirus test on presentation Chest x-ray was visualized and independently interpreted. Obscurity of the left lower lobe. I agree with radiologist interpretation Procalcitonin was ordered Decadron ordered. Creatinine clearance is more than 30. Likely has symptoms has not exceeded 10 days at a time of presentation. Check LFTs. Consider remdesivir. CBC reviewed showed normal white count but with neutrophilia; lymphopenia and monocytosis. Trend Titrate oxygen as needed Pericardial effusion CT abdomen pelvis showed pericardial effusion. Management of the discussed the case with cardiology who recommended echocardiogram and to be consulted as needed. Echocardiogram ordered. No cardiology consult placed at this time. Diabetes mellitus Patient with hyperglycemia on presentation Metformin held Pioglitazone continue Monitor Accu-Cheks Correction scale insulin ordered. Hypertension Blood pressure is not within goal Home blood pressure medication continued. As needed hydralazine ordered. Trend blood pressure and adjust blood pressure medications. DVT prophylaxis: Subcutaneous Lovenox ordered Charges/Coding Visit Charges OBSV E&M: 68601 Initial observation care L3
[2022-03-01 01:17] LABS: AST(SGOT) 23 U/L (15-37); Alanine Aminotransfer ALT/SGPT 23 U/L (13-56); Albumin, Serum 3.4 g/dL (3.2-5.0); Alkaline Phosphatase 54 U/L (45-117); Bilirubin, Direct 0.13 mg/dL (0.00-0.30); Globulin 4.1 g/dL (2.2-4.2); Protein, Total 7.5 g/dL (6.4-8.2)
--- NOTE | 2022-03-01 01:22 | ECHOD_ITS ---
Reason For Study: Pericardial Effusion on CT Procedure This was a 2D Doppler, Color Flow transthoracic echocardiogram. The study was technically difficult. Exam performed portable in patient room. The exam was abbreviated due to the COVID 19 protocol. Left Ventricle Based upon the 2D echocardiographic images obtained there appears to be grossly normal left ventricular size, wall motion, and systolic function. The estimated ejection fraction is 55 %. Diastolic function is indeterminate. Right Ventricle Based upon the 2D echocardiographic images obtained there appears to be grossly normal right ventricular size and systolic function. Atria The left atrium is mildly enlarged. Normal right atrium. No doppler evidence for ASD. Mitral Valve There is mild to moderate mitral annular calcification. Extension of the mitral annular calcification onto the base of the posterior mitral valve leaflet. Tricuspid Valve The tricuspid valve is not well visualized. Aortic Valve The aortic valve is not well visualized. Pulmonic Valve The pulmonic valve is not well visualized. Great Vessels The aortic root is not well visualized. Pericardium/Pleural Trivial pericardial effusion. There are no echocardiographic indications of cardiac tamponade. MMode/2D Measurements & Calculations LVIDd: 5.0 cm IVSd: 1.1 cm LA dimension: 3.0 cm LVIDs: 3.1 cm LVPWd: 1.0 cm FS: 38.7 % LAV(MOD-sp4): 40.0 ml LA A4 area: 17.5 cm2 Time Measurements MV dec time: 0.28 sec Doppler Measurements & Calculations MV E max shahbaz: 113.4 cm/sec Lat Peak E' Shahbaz: 9.4 cm/sec Med Peak E' Shahbaz: 6.6 cm/sec MV A max shahbaz: 120.7 cm/sec E/E' lat: 12.1 E/E' med: 17.3 MV E/A: 0.94 MV V2 max: 117.5 cm/sec MV P1/2t max shahbaz: 114.4 cm/sec PA V2 max: 101.0 cm/sec MV max P.5 mmHg MV P1/2t: 96.3 msec MV V2 mean: 74.2 cm/sec MV dec slope: 348.0 cm/sec2 MV mean P.5 mmHg MVA(P1/2t): 2.3 cm2 MV V2 VTI: 37.1 cm ECHO/Echo Complete Interpretation Summary The study was technically difficult. Based upon the 2D echocardiographic images obtained there appears to be grossly normal left ventricular size, wall motion, and systolic function. The estimated ejection fraction is 55 %. The left atrium is mildly enlarged. There is mild to moderate mitral annular calcification. Extension of the mitral annular calcification onto the base of the posterior mi tral valve leaflet. Trivial pericardial effusion. There are no echocardiographic indications of cardiac tamponade. Diastolic function is indeterminate. Ordering Physician: Kwesi Rodríguez Referring Physician: Opal Bradford M.D. Performed By: Yoan Hays RCS
[2022-03-01] MEDS: Dicyclomine 10 MG Capsule PO ×3 (01:50→21:51)
[2022-03-01] MEDS: guaiFENesin 1,200 MG Tablet 1200 MG PO ×3 (03:30→21:54)
[2022-03-01] MEDS: dexAMETHasone 4 MG Tablet 6 MG PO (03:31)
[2022-03-01 05:32] LABS: Absolute Lymphocyte Count 0.23 X10^3/uL (0.83-4.51); Absolute Neutrophil Count 2.6 X10^3/uL (2.0-7.7); Basophil# 0.01 X10^3/uL; Basophil% 0.3 % (0-1); Eosinophil# 0.01 X10^3/uL; Eosinophils% 0.3 % (0-5); Hematocrit 38.8 % (37-47); Hemoglobin 12.5 g/dL (12.0-15.0); Lymphocyte # 0.23 X10^3/ul (0.83-4.51); Lymphocyte % 6.8 % (19-41); Mean Corp Hgb Conc 32.2 g/dL (32-36); Mean Corpuscular Hgb 30.7 pg (27.0-32.0); Mean Corpuscular Volume 95.3 fL (81-99); Mean Platelet Vol. 10.6 fl (6.2-12.0); Monocyte# 0.54 X10^3/uL; Monocyte% 15.9 % (0-10); NRBC Flagged by Analyzer 0 % (0-5); Neutrophil # 2.59 X10^3/uL (2.7-7.7); Neutrophil % 76.4 % (47-70); POSITIVE DIFFERENTIAL YES; Platelet Count 174 K/mm3 (150-450); RBC Distribution Width CV 13.8 % (11.6-14.6); RBC Distribution Width SD 48.7 fl (35.1-43.9); Red Blood Count 4.07 M/mm3 (4.2-5.4); White Blood Count 3.4 K/mm3 (4.4-11.0)
[2022-03-01 05:50] LABS: Differential Indicated SCAN CRITERIA MET
[2022-03-01 06:03] LABS: Anion Gap 7 (5-15); BUN 16 mg/dL (7-18); BUN/Creat Ratio 24.4 RATIO (10-20); Calcium,Total 8.4 mg/dL (8.5-10.1); Chloride 104 mmol/L (98-107); Creatinine, Serum 0.66 mg/dL (0.55-1.02); EST Glomerular Filtration Rate 93 mL/min (>60); Est Glom Filt Rate - Afr Amer 113 mL/min (>60); Estimated Creatinine Clearance 41.33 ml/min; Glucose 135 mg/dL (74-106); Sodium Level 137 mmol/L (136-145)
[2022-03-01 06:22] LABS: Procalcitonin < 0.04 ng/mL (0.00-0.09)
[2022-03-01 07:15] LABS: Bedside Glucose 128 mg/dL (74-106)
--- NOTE | 2022-03-01 07:46 | PCM.PN.HOSP ---
Subjective Subjective Still short of breath. Was sick about 2 days prior to arrival. Objective Data Objective Data Vital Signs: Vital Signs Temp Pulse Resp BP Pulse Ox O2 Del Method O2 Flow Rate 36.7 C 71 18 127/64 H 94 Nasal Cannula 2 03/01/22 03:29 03/01/22 07:00 03/01/22 03:29 03/01/22 03:29 03/01/22 03:29 03/01/22 04:30 03/01/22 04:30 Oxygen Flow Rate (L/min) 2 Oxygen Delivery Method Nasal Cannula Weight: 96.3 kg Body Mass Index (BMI) 36.4 Intake & Output: Intake and Output for Last 24 Hours 02/27/22 02/28/22 03/01/22 23:59 23:59 23:59 Intake Total 1000 / 1000 Output Total 300 / 300 Balance 1000 / 1000 -300 / -300 Lab / Micro Data Result Diagrams: 03/01/22 05:03 03/01/22 05:03 Labs: Laboratory Results - last 24 hr 02/28/22 21:31: WBC 4.8, RBC 4.29, Hgb 13.3, Hct 40.9, MCV 95.3, MCH 31.0, MCHC 32.5, RDW Std Deviation 49.1 H, RDW Coeff of Carrie 14.0, Plt Count 180, MPV 10.9, Immature Gran % (Auto) 0.400, Neut % (Auto) 72.1 H, Lymph % (Auto) 8.3 L, [place] % (Auto) 16.9 H, Eos % (Auto) 1.7, Baso % (Auto) 0.6, Absolute Neuts (auto) 3.5, Absolute Lymphs (auto) 0.40 L, Nucleated RBC % 0, Differential Comment SCANNED, Platelet Estimate ADEQUATE, RBC Morphology NORM C+C 02/28/22 21:31: Sodium 139, Potassium 4.0, Chloride 105, Carbon Dioxide 28.0, Anion Gap 6, BUN 19 H, Creatinine 0.85, Estim Creat Clear Calc 48.62, Est GFR (MDRD) Af Amer 84, Est GFR (MDRD) Non-Af 69, BUN/Creatinine Ratio 22.4 H, Glucose 197 H, Calcium 9.3, Total Bilirubin 0.40, AST 22, ALT 24, Alkaline Phosphatase 57, Total Protein 7.6, Albumin 3.4, Globulin 4.2, Albumin/Globulin Ratio 0.8 L, Lipase 58 L 02/28/22 21:31: Urine Color Yellow, Urine Clarity Clear, Urine pH 6.0, Ur Specific [place] 1.025, Urine Protein 15 H, Urine Glucose (UA) Normal, Urine Ketones Negative, Urine Occult Blood 10 H, Urine Nitrite Negative, Urine Bilirubin Negative, Urine Urobilinogen Normal, Ur Leukocyte Esterase Negative, Urine RBC 0-5 SEEN, Urine WBC 0 SEEN, Ur Squamous Epith Cells 0-5 SEEN, Urine Bacteria 0 SEEN, Urine Mucus 0 SEEN 02/28/22 21:31: Total Bilirubin 0.40, Direct Bilirubin 0.13, AST 23, ALT 23, Alkaline Phosphatase 54, Total Protein 7.5, Albumin 3.4, Globulin 4.1 03/01/22 05:03: Procalcitonin < 0.04 03/01/22 05:03: WBC 3.4 L, RBC 4.07 L, Hgb 12.5, Hct 38.8, MCV 95.3, MCH 30.7, MCHC 32.2, RDW Std Deviation 48.7 H, RDW Coeff of Carrie 13.8, Plt Count 174, MPV 10.6, Immature Gran % (Auto) 0.300, Neut % (Auto) 76.4 H, Lymph % (Auto) 6.8 L, [place] % (Auto) 15.9 H, Eos % (Auto) 0.3, Baso % (Auto) 0.3, Absolute Neuts (auto) 2.6, Absolute Lymphs (auto) 0.23 L, Nucleated RBC % 0, Diff Path Review November03/01/22 05:03: Sodium 137, Potassium 4.0, Chloride 104, Carbon Dioxide 26.0, Anion Gap 7, BUN 16, Creatinine 0.66, Estim Creat Clear Calc 41.33, Est GFR (MDRD) Af Amer 113, Est GFR (MDRD) Non-Af 93, BUN/Creatinine Ratio 24.4 H, Glucose 135 H, Calcium 8.4 L 03/01/22 06:21: POC Glucose 128 H Micro: Microbiology 02/28/22 21:31 Nasal Secretion SARS-CoV-2 Antigen (Rapid) - Final SARS-CoV-2 (COVID 19) Radiography Diagnostic Testing: Radiology Impression Abdomen/Pelvis CT 02/28/22 21:17 IMPRESSION: 1. No acute or inflammatory disease or bowel obstruction involving the abdomen/pelvis 2. Moderate size pericardial effusion. Electronically Signed: Tone Wilkerson MD at 23:33 EDT , Chest X-Ray 02/28/22 23:45 IMPRESSION: Airspace disease involving the left lower lobe obscuring the left hemidiaphragm. Consider atelectasis, aspiration, and/or infiltrate. A small left pleural effusion is not excluded. Electronically Signed: Tone Wilkerson MD at 0:03 EDT , Physical Exam Const alert and no apparent distress Resp normal respiratory effort and no retractions Resp Narrative: Bibasilar crackles Cardio regular rate, regular rhythm, S1 normal heart sound and S2 normal heart sound GI normal to inspection, nondistended, normoactive bowel sounds, soft to palpation, non-tender and non-distended Assessment & Plan Assessment/Plan (1) COVID-19: PLAN: COVID-19 with hypoxia Onset was around February 27 Oxygen saturation with ambulation was less than 90. Positive coronavirus test on presentation Chest x-ray was visualized and independently interpreted. Obscurity of the left lower lobe. I agree with radiologist interpretation Procalcitonin was ordered Decadron ordered. Start remdesivir (2) Hypoxia: PLAN: Secondary to COVID-19 Wean oxygen as tolerated May require amatory pulse ox prior to discharge. (3) Essential hypertension: PLAN: Hypertension Blood pressure is not within goal Home blood pressure medication continued. As needed hydralazine ordered. Trend blood pressure and adjust blood pressure medications. 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 (5) Pericardial effusion: PLAN: Pericardial effusion CT abdomen pelvis showed pericardial effusion. Management of the discussed the case with cardiology who recommended echocardiogram and to be consulted as needed. Echocardiogram ordered. No cardiology consult placed at this time. PLAN: Plan DVT prophylaxis: Subcutaneous Lovenox ordered Charges/Coding Visit Charges Inpatient E&M: 39334 Subs Hosp L2
[2022-03-01] MEDS: Memantine Hydrochloride 10 MG Tablet PO ×2 (09:44→21:53)
[2022-03-01] MEDS: Galantamine Hydrobromide 4 MG Tablet 12 MG PO ×2 (09:44→21:53)
[2022-03-01] MEDS: Hydroxychloroquine 200 MG Tablet PO (09:44)
[2022-03-01] MEDS: Pioglitazone Hydrochloride 15 MG Tablet PO (09:44)
[2022-03-01] MEDS: amLODIPine 10 MG Tablet PO (09:44)
[2022-03-01] MEDS: Clopidogrel Bisulfate 75 MG Tablet PO (09:44)
[2022-03-01] MEDS: Lisinopril 20 MG Tablet PO (09:44)
[2022-03-01] MEDS: Potassium Chloride Oral Tablet 20 MEQ 40 MEQ PO ×2 (09:45→21:52)
[2022-03-01] MEDS: Aspirin 81 MG TAB.CHEW PO (09:45)
[2022-03-01] MEDS: 0.9% Saline Lock 10 ML Syringe IV (09:48)
[2022-03-01] MEDS: Acetaminophen 325 MG Tablet 650 MG PO (09:48)
[2022-03-01] MEDS: Ondansetron 4 MG/2 ML Vial IV (09:48)
[2022-03-01] MEDS: hydroCHLOROthiazide 12.5mg 12.5 MG PO (09:50)
[2022-03-01] MEDS: Enoxaparin 30 MG/0.3 ML Syringe SC ×2 (10:00→21:52)
[2022-03-01 12:32] LABS: Alkaline Phosphatase 49 U/L (45-117)
[2022-03-01] MEDS: Insulin Lispro 100 UNIT/ML INSULN.PEN SC (12:49)
[2022-03-01 15:51] LABS: Bedside Glucose 179 mg/dL (74-106)
[2022-03-01] MEDS: Atorvastatin Calcium 40 MG Tablet PO (21:52)
[2022-03-01] MEDS: Escitalopram Oxalate 10 MG Tablet 30 MG PO (21:52)
[2022-03-01] MEDS: MELATONIN 10 MG TABLET PO (21:54)
[2022-03-01 22:25] LABS: Bedside Glucose 147 mg/dL (74-106)
[2022-03-01 22:30] LABS: Bedside Glucose 127 mg/dL (74-106)
[2022-03-02] VITALS (11 sets, daily range): BP systolic 118–145; BP diastolic 69–92; PULSE 60–80; RESP 16–18; TEMP 37.2–37.8; O2SAT 93–100
[2022-03-02 06:49] LABS: Hematocrit 39.5 % (37-47); Mean Corp Hgb Conc 32.9 g/dL (32-36); Mean Corpuscular Hgb 30.9 pg (27.0-32.0); Mean Corpuscular Volume 93.8 fL (81-99); Platelet Count 176 K/mm3 (150-450); RBC Distribution Width CV 13.5 % (11.6-14.6); Red Blood Count 4.21 M/mm3 (4.2-5.4); White Blood Count 3.9 K/mm3 (4.4-11.0)
[2022-03-02 07:11] LABS: Bedside Glucose 129 mg/dL (74-106)
[2022-03-02 07:13] LABS: ALB/GLOB Ratio 0.8 RATIO (0.9-2.4); AST(SGOT) 30 U/L (15-37); Alanine Aminotransfer ALT/SGPT 26 U/L (13-56); Alkaline Phosphatase 48 U/L (45-117); Anion Gap 6 (5-15); BUN 22 mg/dL (7-18); Calcium,Total 8.8 mg/dL (8.5-10.1); Chloride 106 mmol/L (98-107); Creatinine, Serum 0.79 mg/dL (0.55-1.02); EST Glomerular Filtration Rate 76 mL/min (>60); Est Glom Filt Rate - Afr Amer 92 mL/min (>60); Estimated Creatinine Clearance 41.33 ml/min; Globulin 3.7 g/dL (2.2-4.2); Glucose 127 mg/dL (74-106); Potassium 4.2 mmol/L (3.5-5.1); Protein, Total 6.7 g/dL (6.4-8.2); Sodium Level 139 mmol/L (136-145)
--- NOTE | 2022-03-02 08:57 | PN.HOSP_ITS ---
Documented by User: Lesly Church NP-Ann Marie 03/02/22 09:09 Subjective Subjective Patient seen and examined. Patient lying in bed no distress noted. Patient continues to require 2 L nasal cannula oxygen. Patient states that she feels less disoriented and confused this morning. Objective Data Objective Data Vital Signs: Vital Signs Temp Pulse Resp BP Pulse Ox O2 Del Method O2 Flow Rate 99.4 F H 72 18 145/72 H 98 Nasal Cannula 2 03/02/22 05:30 03/02/22 07:30 03/02/22 05:30 03/02/22 05:30 03/02/22 07:24 03/02/22 07:24 03/02/22 07:24 Oxygen Flow Rate (L/min) 2 Oxygen Delivery Method Nasal Cannula Weight: 212 lb 4.882 oz Body Mass Index (BMI) 36.4 Intake & Output: Intake and Output for Last 24 Hours 02/28/22 03/01/22 03/02/22 23:59 23:59 23:59 Intake Total 1000 / 1000 610 / 610 Output Total 450 / 850 800 / 800 Balance 1000 / 1000 160 / -240 -800 / -800 Lab / Micro Data Result Diagrams: 03/02/22 05:45 03/02/22 05:45 Labs: Laboratory Results - last 24 hr 03/01/22 05:03: Alkaline Phosphatase 49 03/01/22 12:14: POC Glucose 179 H 03/01/22 17:01: POC Glucose 127 H 03/01/22 21:49: POC Glucose 147 H 03/02/22 05:45: WBC 3.9 L, RBC 4.21, Hgb 13.0, Hct 39.5, MCV 93.8, MCH 30.9, MCHC 32.9, RDW Std Deviation 47.0 H, RDW Coeff of Carrie 13.5, Plt Count 176, MPV 11.0 03/02/22 05:45: Sodium 139, Potassium 4.2, Chloride 106, Carbon Dioxide 27.0, Anion Gap 6, BUN 22 H, Creatinine 0.79, Estim Creat Clear Calc 41.33, Est GFR (MDRD) Af Amer 92, Est GFR (MDRD) Non-Af 76, BUN/Creatinine Ratio 28.0 H, Glucose 127 H, Calcium 8.8, Total Bilirubin 0.40, AST 30, ALT 26, Alkaline Phosphatase 48, Total Protein 6.7, Albumin 3.0 L, Globulin 3.7, Albumin/Globulin Ratio 0.8 L 03/02/22 05:55: POC Glucose 129 H Micro: Microbiology 02/28/22 21:31 Nasal Secretion SARS-CoV-2 Antigen (Rapid) - Final SARS-CoV-2 (COVID 19) Physical Exam Const alert, oriented x3 and no apparent distress HEENT normocephalic and head/scalp atraumatic Eyes conjunctivae normal and no scleral icterus Neck no lymphadenopathy and supple Resp normal respiratory effort Auscultation: crackles bilateral base Cardio regular rate, regular rhythm, S1 normal heart sound and S2 normal heart sound GI normal to inspection, nondistended, normoactive bowel sounds, soft to palpation and non-tender Extremity normal to inspection, full ROM and no clubbing, cyanosis or edema Neuro oriented x3, moves all extremities, no focal motor deficits and no sensory deficits noted Sensorium / Orientation: awake and alert Psych affect normal Assessment & Plan Assessment/Plan (1) COVID-19: (2) Pericardial effusion: PLAN: Plan 1. Hypoxia secondary to COVID-19 -Continue oxygen therapy per protocol, wean as tolerated, currently on 2 L nasal cannula -Continue dexamethasone -Continue remdesivir 2. Essential hypertension -Vital signs per protocol -continue home medications including amlodipine, lisinopril, hydrochlorot hiazide. -As needed hydralazine ordered 3. Diabetes mellitus type 2 -Continue pioglitazone, metformin on hold -ACH S blood sugars with sliding scale insulin ordered 4. Pericardial effusion -CT abdomen pelvis showed pericardial effusion -Echocardiogram ordered -May consult cardiology depending on results of echocardiogram DVT prophylaxis-subcu Lovenox This patient was seen by Lesly Church NP-C under the supervision of Dr. Galindo. Documented by User: Dr. Eliot Galindo MD 03/02/22 10:22 Objective Data Lab / Micro Data Result Diagrams: 03/02/22 05:45 03/02/22 05:45 Assessment & Plan Assessment/Plan (1) COVID-19: (2) Pericardial effusion: Addt'l Comments This patient was seen in conjunction with ALEXIA Hart . I have independently interviewed and examined the patient and reviewed pertinent historical, laboratory, and other data. Please refer to ALEXIA Hart note for details of this patient's presentation, findings, and recommendations. I have reviewed ALEXIA Hart note and concur with documented findings. In brief, patient is a 76-year-old lady presented with progressive generalized weakness. Was found to be hypoxic on admission COVID 19 is a test that came back positive admitted to regular nursing floor. Physical Examination: GENERAL: cooperative HEENT: Atraumatic; EYES; Anicteric, Normal Conjunctiva NECK; supple, normal thyroid, RESPIRATORY: Diminished to auscultation CARDIOVASCULAR: Regular S1 S2, GI: soft, normoactive bowel sounds, : No Renal angle tenderness; EXTREMITIES: No edema, no clubbing, MUSCULOSKELETAL: no muscle wasting NEURO: Awake; no lateralizing signs. SKIN: No Rash PSYCH; Flat affect Assessment: 1. Acute hypoxia secondary to COVID-19 pneumonia 2. Pericardial effusion on CAT scan 2D echo ordered 3. Diabetes mellitus type 2 4. Pulmonary hypertension 5. Essential tension 6. Peripheral arterial disease with right carotid artery stenosis 7. Diabetes mellitus type 2 8. DVT prophylaxis Recommendations: 1. I have discussed the results of my overview and impressions with the patient 2. Options for management were reviewed Total time spent by myself and the advanced practice practitioner evaluating patient, reviewing labs, subsequent management decisions, discussion with patient as well as other providers 45 minutes ( 25 of which was spent by myself) Charges/Coding Visit Charges Inpatient E&M: 74306 [facility] [place] Hosp L3
[2022-03-02] MEDS: Enoxaparin 30 MG/0.3 ML Syringe SC ×2 (09:54→21:07)
[2022-03-02] MEDS: Aspirin 81 MG TAB.CHEW PO (09:54)
[2022-03-02] MEDS: Lisinopril 20 MG Tablet PO (09:55)
[2022-03-02] MEDS: Memantine Hydrochloride 10 MG Tablet PO ×2 (09:55→21:08)
[2022-03-02] MEDS: Pioglitazone Hydrochloride 15 MG Tablet PO (09:55)
[2022-03-02] MEDS: dexAMETHasone 4 MG Tablet 6 MG PO (09:55)
[2022-03-02] MEDS: Dicyclomine 10 MG Capsule PO ×2 (09:55→21:06)
[2022-03-02] MEDS: hydroCHLOROthiazide 12.5mg 12.5 MG PO (09:55)
[2022-03-02] MEDS: Galantamine Hydrobromide 4 MG Tablet 12 MG PO ×2 (09:55→21:07)
[2022-03-02] MEDS: amLODIPine 10 MG Tablet PO (09:55)
[2022-03-02] MEDS: guaiFENesin 1,200 MG Tablet 1200 MG PO ×2 (09:56→21:07)
[2022-03-02] MEDS: Potassium Chloride Oral Tablet 20 MEQ 40 MEQ PO ×2 (09:56→21:07)
[2022-03-02] MEDS: Clopidogrel Bisulfate 75 MG Tablet PO (09:56)
[2022-03-02] MEDS: Insulin Lispro 100 UNIT/ML INSULN.PEN SC ×3 (11:04→21:17)
[2022-03-02] MEDS: 0.9% Saline Lock 10 ML Syringe IV (11:08)
[2022-03-02] MEDS: Ondansetron 4 MG/2 ML Vial IV (11:08)
[2022-03-02 11:31] LABS: Bedside Glucose 189 mg/dL (74-106)
--- NOTE | 2022-03-02 14:33 | CASEMGMT ---
Addendum entered by Iveth Lopez 03/02/22 15:22: Pt does c/o continued nausea and severe burning with urination. Chey SYLVESTER aware, voices understanding and states repeat UA pending. Manuel VASQUEZ CM Original Note: PEDRO CHAPPELL assessment: Initial transition planning/care coordination assessment. PEDRO CHAPPELL introduced self and role at [facility], pt voices understanding and consents to assessment. Pt is on 2L nc in no distress. Pt is A/Ox4 and answers all questions appropriately.? Care providers, pharmacy,?and demographics verified. ? Presentation: Lower abd pain for 2 days, increased weakness-other family members in house are COVID + Admitting dx: Hypoxia, COVID PCP: Suzette Specialists: None Preferred Pharmacy: [facility] Insurance: Birdi Prescription Benefit:? Birdi Living Will/HPOA: Pt has LW/HPOA currently on file at [facility] and pt is aware. Pt's daughter, Nanci García, is HPOA. LNOK: Nanci García, daughter/HPOA Living Arrangements: Pt lives with daughter/daughter's boyfriend in 1 story home with a few steps in and states no concerns at home. Pt states daughter assists with ADL's, such as bathing, meals, meds, cleaning, and ambulation. Daughter is always home with pt as she is on disability. Transportation: Pt states daughter drives and states no transportation concerns. DME/HHC: Pt has the following DME: shower chair, walker, and rollator. Pt states no preference for DME company, if qualifies for home oxygen at discharge. Pt to be sent home with pulse ox from [facility] at discharge. Pt has been to [facility] IP rehab, [facility], and [facility] in past. Pt states has also had HHC in past. Pt is unsure of plan for discharge. Pt is retired. Pt states does not smoke cigarettes or drink ETOH. Pt voices no further concerns/needs. CM to follow for therapy notes, oxygen testing, and any further discharge planning/needs. Pt Goal: ? Home Plan: TBD, pending therapy evals. Manuel VASQUEZ CM
[2022-03-02 19:40] LABS: Bedside Glucose 231 mg/dL (74-106)
[2022-03-02] MEDS: Escitalopram Oxalate 10 MG Tablet 30 MG PO (21:06)
[2022-03-02] MEDS: Atorvastatin Calcium 40 MG Tablet PO (21:07)
[2022-03-02] MEDS: MELATONIN 10 MG TABLET PO (21:08)
[2022-03-02] MEDS: Zolpidem Tartrate 5 MG Tablet 10 MG PO (21:32)
[2022-03-02 21:55] LABS: Bedside Glucose 217 mg/dL (74-106)
[2022-03-03] VITALS (17 sets, daily range): BP systolic 130–165; BP diastolic 60–84; PULSE 63–82; RESP 18–20; TEMP 36.3–37.2; O2SAT 93–97
[2022-03-03] MEDS: Ondansetron 4 MG/2 ML Vial IV ×3 (02:10→20:57)
[2022-03-03] MEDS: 0.9% Saline Lock 10 ML Syringe IV ×4 (02:11→22:15)
[2022-03-03 06:53] LABS: Absolute Lymphocyte Count 0.95 X10^3/uL (0.83-4.51); Absolute Neutrophil Count 3.6 X10^3/uL (2.0-7.7); Hematocrit 41.6 % (37-47); Hemoglobin 13.8 g/dL (12.0-15.0); Lymphocyte # 0.95 X10^3/ul (0.83-4.51); Lymphocyte % 17.8 % (19-41); Mean Corp Hgb Conc 33.2 g/dL (32-36); Mean Corpuscular Volume 93.5 fL (81-99); Mean Platelet Vol. 10.9 fl (6.2-12.0); Monocyte# 0.74 X10^3/uL; Monocyte% 13.8 % (0-10); NRBC Flagged by Analyzer 0 % (0-5); Neutrophil # 3.64 X10^3/uL (2.7-7.7); Platelet Count 199 K/mm3 (150-450); RBC Distribution Width CV 13.6 % (11.6-14.6); RBC Distribution Width SD 46.6 fl (35.1-43.9); Red Blood Count 4.45 M/mm3 (4.2-5.4); White Blood Count 5.4 K/mm3 (4.4-11.0)
[2022-03-03 07:11] LABS: Anion Gap 7 (5-15); BUN 25 mg/dL (7-18); Calcium,Total 8.6 mg/dL (8.5-10.1); Chloride 103 mmol/L (98-107); Creatinine, Serum 0.68 mg/dL (0.55-1.02); EST Glomerular Filtration Rate 90 mL/min (>60); Est Glom Filt Rate - Afr Amer 109 mL/min (>60); Estimated Creatinine Clearance 41.33 ml/min; Glucose 146 mg/dL (74-106); Magnesium 1.7 mg/dL (1.6-2.6); Phosphorus 2.8 mg/dL (2.5-4.9); Potassium 4.1 mmol/L (3.5-5.1); Sodium Level 137 mmol/L (136-145)
[2022-03-03 07:25] LABS: Bedside Glucose 139 mg/dL (74-106)
[2022-03-03 09:06] LABS: Pathologist Review Reviewed
--- NOTE | 2022-03-03 09:30 | PCM.PN.HOSP ---
Documented by User: Lesly Church NP-Ann Marie 03/03/22 09:32 Subjective Subjective Patient seen and examined. Patient lying in bed no distress noted. Patient currently on room air, pulse ox 93 to 94%. Patient states that she is just tired and feeling very weak. Objective Data Objective Data Vital Signs: Vital Signs Temp Pulse Resp BP Pulse Ox O2 Del Method O2 Flow Rate 98.0 F 78 18 138/75 H 97 Nasal Cannula 2 03/03/22 02:42 03/03/22 07:00 03/03/22 02:42 03/03/22 02:42 03/03/22 07:26 03/03/22 07:26 03/03/22 07:26 Oxygen Flow Rate (L/min) 2 Oxygen Delivery Method Nasal Cannula Weight: 212 lb 4.882 oz Body Mass Index (BMI) 36.4 Intake & Output: Intake and Output for Last 24 Hours 03/01/22 03/02/22 03/03/22 23:59 23:59 23:59 Intake Total 610 / 610 250 / 250 Output Total 450 / 850 800 / 800 Balance 160 / -240 -550 / -550 Lab / Micro Data Result Diagrams: 03/03/22 06:30 03/03/22 06:30 Labs: Laboratory Results - last 24 hr 03/01/22 05:03: Diff Path Review Reviewed 03/02/22 11:03: POC Glucose 189 H 03/02/22 16:11: POC Glucose 231 H 03/02/22 21:02: POC Glucose 217 H 03/03/22 06:30: WBC 5.4, RBC 4.45, Hgb 13.8, Hct 41.6, MCV 93.5, MCH 31.0, MCHC 33.2, RDW Std Deviation 46.6 H, RDW Coeff of Carrie 13.6, Plt Count 199, MPV 10.9, Immature Gran % (Auto) 0.400, Neut % (Auto) 68.0, Lymph % (Auto) 17.8 L, [place] % (Auto) 13.8 H, Eos % (Auto) 0.0, Baso % (Auto) 0.0, Absolute Neuts (auto) 3.6, Absolute Lymphs (auto) 0.95, Nucleated RBC % 0 03/03/22 06:30: Sodium 137, Potassium 4.1, Chloride 103, Carbon Dioxide 27.0, Anion Gap 7, BUN 25 H, Creatinine 0.68, Estim Creat Clear Calc 41.33, Est GFR (MDRD) Af Amer 109, Est GFR (MDRD) Non-Af 90, BUN/Creatinine Ratio 37.0 H, Glucose 146 H, Calcium 8.6, Phosphorus 2.8, Magnesium 1.7 03/03/22 07:02: POC Glucose 139 H Micro: Microbiology 02/28/22 21:31 Nasal Secretion SARS-CoV-2 Antigen (Rapid) - Final SARS-CoV-2 (COVID 19) Radiography Diagnostic Testing: Radiology Impression Echocardiogram 03/01/22 01:22 Interpretation Summary The study was technically difficult. Based upon the 2D echocardiographic images obtained there appears to be grossly normal left ventricular size, wall motion, and systolic function. The estimated ejection fraction is 55 %. The left atrium is mildly enlarged. There is mild to moderate mitral annular calcification. Extension of the mitral annular calcification onto the base of the posterior mitral valve leaflet. Trivial pericardial effusion. There are no echocardiographic indications of cardiac tamponade. Diastolic function is indeterminate. Ordering Physician: Kwesi Rodríguez Referring Physician: Opal Bradford M.D. Performed By: Yoan Hays RCS Physical Exam Const alert, oriented x3 and no apparent distress HEENT normocephalic and head/scalp atraumatic Eyes conjunctivae normal and no scleral icterus Neck no lymphadenopathy and supple Resp normal respiratory effort Auscultation: crackles bilateral base Cardio regular rate, regular rhythm, S1 normal heart sound and S2 normal heart sound GI normal to inspection, nondistended, normoactive bowel sounds, soft to palpation and non-tender Extremity normal to inspection, full ROM and no clubbing, cyanosis or edema Neuro oriented x3, moves all extremities, no focal motor deficits and no sensory deficits noted Sensorium / Orientation: awake and alert Psych affect normal Assessment & Plan Assessment/Plan (1) COVID-19: (2) Pericardial effusion: PLAN: Plan 1. Hypoxia secondary to COVID-19 -Continue oxygen therapy per protocol, wean as tolerated, currently on room air -Continue dexamethasone -Continue remdesivir 2. Essential hypertension -Vital signs per protocol -continue home medications including amlodipine, lisinopril, hydrochlorothiazide. -As needed hydralazine ordered 3. Diabetes mellitus type 2 -Continue pioglitazone, metformin on hold -ACH S blood sugars with sliding scale insulin ordered 4. Pericardial effusion -CT abdomen pelvis showed pericardial effusion -Echocardiogram demonstrates EF 55% -May consult cardiology depending on results of echocardiogram DVT prophylaxis-subcu Lovenox This patient was seen by ALEXIA Hart under the supervision of Dr. Galindo. Documented by User: Dr. Eliot Galindo MD 03/03/22 09:50 Objective Data Lab / Micro Data Result Diagrams: 03/03/22 06:30 03/03/22 06:30 Assessment & Plan Assessment/Plan (1) COVID-19: (2) Pericardial effusion: Addt'l Comments This patient was seen in conjunction with ALEXIA Hart .? I have independently interviewed and examined the patient and reviewed pertinent historical, laboratory, and other data.? Please refer to ALEXIA Hart? note for details of this patient's presentation, findings, and recommendations.? I have reviewed? ALEXIA Hart note and concur? with documented findings. In brief, patient is a 76-year-old lady presented with progressive generalized weakness.? Was found to be hypoxic on admission COVID 19 is a test that came back positive admitted to regular nursing floor. 03/03/2022; patient seen has been weaned off oxygen however remains profoundly weak. Assessment by physical therapy reviewed. Patient may need to be discharged to group home facility Physical Examination: GENERAL: cooperative HEENT: Atraumatic; EYES; Anicteric, Normal Conjunctiva NECK; supple, normal thyroid, RESPIRATORY: Diminished to auscultation CARDIOVASCULAR:? Regular S1 S2, GI:? soft, normoactive bowel sounds, : No Renal angle tenderness; EXTREMITIES:? No edema, no clubbing, MUSCULOSKELETAL:? no muscle wasting NEURO:? Awake;? no lateralizing signs. SKIN:? No Rash PSYCH; Flat? affect Assessment: 1.? Acute hypoxia secondary to COVID-19 pneumonia 2.? Pericardial effusion on CAT scan 2D echo ordered 3.? Diabetes mellitus type 2 4.? Pulmonary hypertension 5.? Essential tension 6.? Peripheral arterial disease with right carotid artery stenosis 7.? Diabetes mellitus type 2 8.? DVT prophylaxis Recommendations: 1.? I have discussed the results of my overview and impressions with the patient 2.? Options for management were reviewed Total time spent by myself and the advanced practice practitioner evaluating patient, reviewing labs, subsequent management decisions, discussion with patient as well as other providers 40 minutes ( 25 of which was spent by myself) Charges/Coding Visit Charges Inpatient E&M: 23565 Subs Hosp L2
--- NOTE | 2022-03-03 09:55 | CASEMGMT ---
Patient did not do well with therapy. She requires assist of 2 people. SW met with patient. Introduced self and role at [facility]. SW spoke with patient about a d/c plan. Patient said she would like to go home. SW told patient she required assist of 2 people to get up and move around. Patient said her daughter is sick so she won't be able to help much. Patient told SW to please call her daughter. SW called patient's daughter, Nanci and explained patient is very weak and requiring assist of 2 people. Nanci said she is not going to be able to help patient as she too is sick with COVID. SW told Nanci patient is likely going to need to go to a senior living facility for rehab. SW then went over the list of SNF providers including quality and resource use data and consistent with the patient?s preferred geographic region, medical needs, and insurance network. SW explained that unfortunately the only facility that takes patient's insurance and is taking positive COVID patients is [facility] in [place]. Nanci asked if [facility] is a good facility. SW did let her know [facility] gets 1 star and explained Medicare ratings. SW let Nanci know if she is unhappy with [facility] she could see if they could transfer her to [facility] when she is 11 days out from her positive test. (This would be 03-11). Nanci said that would be an option. Nanci was okay with SW sending a referral to [facility]. SAM asked Danielle d/c logistics and planning manager to send a referral to [facility]. Annie OJEDA
--- NOTE | 2022-03-03 09:58 | CASEMGMT ---
Discharge Ceiling Cleaner Danielle lucero assistant project manager sent referral over to Sandie at [facility]. Will follow up. Plan: [facility], Waiting Acceptance Danielle Beal Discharge Ceiling Cleaner
[2022-03-03 10:11] LABS: Mucous, Urine 0 SEEN /hpf (<or=2+)
[2022-03-03] MEDS: Pioglitazone Hydrochloride 15 MG Tablet PO (10:11)
[2022-03-03] MEDS: Aspirin 81 MG TAB.CHEW PO (10:11)
[2022-03-03] MEDS: Memantine Hydrochloride 10 MG Tablet PO ×2 (10:11→21:08)
[2022-03-03] MEDS: amLODIPine 10 MG Tablet PO (10:11)
[2022-03-03 10:12] LABS: Color, Urine Yellow (Yellow); Glucose, Dipstick 250 mg/dl (Normal); Ketone-Dipstick Negative (Negative); Leukocyte Esterase-Dipstick 25 /ul (Negative); Nitrite-Dipstick Negative (Negative); Occult Blood-Urine 25 /ul (Negative); Protein-Dipstick 15 mg/dl (Negative); Urine Bilirubin Dipstick Negative (Negative); Urine Clarity Sl. Cloudy (Clear); Urine Urobilinogen Normal (Normal)
[2022-03-03] MEDS: hydroCHLOROthiazide 12.5mg 12.5 MG PO (10:13)
[2022-03-03] MEDS: Dicyclomine 10 MG Capsule PO ×2 (10:13→21:08)
[2022-03-03] MEDS: Lisinopril 20 MG Tablet PO (10:13)
[2022-03-03] MEDS: Clopidogrel Bisulfate 75 MG Tablet PO (10:13)
[2022-03-03] MEDS: dexAMETHasone 4 MG Tablet 6 MG PO (10:14)
[2022-03-03] MEDS: Potassium Chloride Oral Tablet 20 MEQ 40 MEQ PO ×2 (10:16→21:06)
[2022-03-03] MEDS: Enoxaparin 30 MG/0.3 ML Syringe SC ×2 (10:16→21:10)
[2022-03-03] MEDS: guaiFENesin 1,200 MG Tablet 1200 MG PO ×2 (10:16→21:05)
[2022-03-03] MEDS: Insulin Lispro 100 UNIT/ML INSULN.PEN SC ×3 (10:18→21:03)
[2022-03-03 10:19] LABS: Bacteria 1+ /hpf (None Seen); Red Blood Cells-Urine 0-5 SEEN /hpf (0-5); Squamous Epithelial Cells - UA 0-5 SEEN /hpf (5-10); White Blood Cells 0-5 SEEN /hpf (0-5)
[2022-03-03] MEDS: Galantamine Hydrobromide 4 MG Tablet 12 MG PO ×2 (10:24→21:08)
[2022-03-03 11:10] LABS: Bedside Glucose 161 mg/dL (74-106)
--- NOTE | 2022-03-03 14:03 | CASEMGMT ---
Discharge Rf Design Engineer Danielle wilkerson/dionis[facility] service center assistant reached out to Sandie at [facility] to check on the status of the referral that the DON is reviewing. Have not heard back. Will follow up. Plan: [facility], Waiting Acceptance. Danielle Beal Discharge Rf Design Engineer
--- NOTE | 2022-03-03 14:48 | CASEMGMT ---
Discharge Power Line Installer Sandie reached out from [facility]. [facility] can accept patient. Sandie will start pre-cert. SAM Valencia notified. Plan: [facility], Waiting Pre-cert Danielle Beal Discharge Power Line Installer
--- NOTE | 2022-03-03 15:37 | CASEMGMT ---
SW called patient's daughter Nanci and let her know that SW did check back with [facility] and they did confirm the patient has to be 11 days out from the positive COVID test. ASM let Nanci know that [facility] did accept patient. Patient will stay until insurance approves which will likely be tomorrow. Plan: d/c to [facility] pending insurance approval. Annie Serra [employer] INSTALLER LYNETTE
[2022-03-03 16:46] LABS: Bedside Glucose 260 mg/dL (74-106)
--- NOTE | 2022-03-03 17:01 | NURSING ---
All documentation and medication administration completed by Mp Couch RN completed under the supervision of this RN.
[2022-03-03] MEDS: Atorvastatin Calcium 40 MG Tablet PO (21:08)
[2022-03-03] MEDS: Escitalopram Oxalate 10 MG Tablet 30 MG PO (21:08)
[2022-03-03 21:35] LABS: Bedside Glucose 332 mg/dL (74-106)
[2022-03-03] MEDS: Zolpidem Tartrate 5 MG Tablet 10 MG PO (22:06)
[2022-03-03] MEDS: hydrALAZINE 20 MG/ML Vial 5 MG IV (22:15)
[2022-03-04] VITALS (18 sets, daily range): BP systolic 148–162; BP diastolic 68–115; PULSE 64–75; RESP 17–21; TEMP 36.1–37.1; O2SAT 84–98
[2022-03-04] MEDS: 0.9% Saline Lock 10 ML Syringe IV (06:18)
[2022-03-04] MEDS: hydrALAZINE 20 MG/ML Vial 5 MG IV (06:18)
[2022-03-04 07:02] LABS: Absolute Lymphocyte Count 1.24 X10^3/uL (0.83-4.51); Absolute Neutrophil Count 2.6 X10^3/uL (2.0-7.7); Hematocrit 37.2 % (37-47); Hemoglobin 12.6 g/dL (12.0-15.0); Lymphocyte # 1.24 X10^3/ul (0.83-4.51); Lymphocyte % 27.6 % (19-41); Mean Corp Hgb Conc 33.9 g/dL (32-36); Mean Corpuscular Hgb 31.6 pg (27.0-32.0); Mean Corpuscular Volume 93.2 fL (81-99); Mean Platelet Vol. 10.7 fl (6.2-12.0); Monocyte# 0.64 X10^3/uL; Monocyte% 14.3 % (0-10); NRBC Flagged by Analyzer 0 % (0-5); Neutrophil % 57.9 % (47-70); Platelet Count 175 K/mm3 (150-450); RBC Distribution Width CV 13.6 % (11.6-14.6); RBC Distribution Width SD 46.5 fl (35.1-43.9); Red Blood Count 3.99 M/mm3 (4.2-5.4); White Blood Count 4.5 K/mm3 (4.4-11.0)
[2022-03-04 07:05] LABS: Bedside Glucose 142 mg/dL (74-106)
[2022-03-04 07:28] LABS: Anion Gap 4 (5-15); BUN 27 mg/dL (7-18); BUN/Creat Ratio 46.5 RATIO (10-20); Calcium,Total 8.3 mg/dL (8.5-10.1); Chloride 107 mmol/L (98-107); Creatinine, Serum 0.58 mg/dL (0.55-1.02); EST Glomerular Filtration Rate 107 mL/min (>60); Est Glom Filt Rate - Afr Amer 130 mL/min (>60); Estimated Creatinine Clearance 41.33 ml/min; Glucose 146 mg/dL (74-106); Potassium 4.5 mmol/L (3.5-5.1); Sodium Level 137 mmol/L (136-145)
[2022-03-04] MEDS: Galantamine Hydrobromide 4 MG Tablet 12 MG PO (10:03)
[2022-03-04] MEDS: Pioglitazone Hydrochloride 15 MG Tablet PO (10:03)
[2022-03-04] MEDS: hydroCHLOROthiazide 12.5mg 12.5 MG PO (10:04)
[2022-03-04] MEDS: Lisinopril 20 MG Tablet PO (10:04)
[2022-03-04] MEDS: Aspirin 81 MG TAB.CHEW PO (10:05)
[2022-03-04] MEDS: Memantine Hydrochloride 10 MG Tablet PO (10:05)
[2022-03-04] MEDS: Dicyclomine 10 MG Capsule PO (10:05)
[2022-03-04] MEDS: Clopidogrel Bisulfate 75 MG Tablet PO (10:05)
[2022-03-04] MEDS: Potassium Chloride Oral Tablet 20 MEQ 40 MEQ PO (10:05)
[2022-03-04] MEDS: amLODIPine 10 MG Tablet PO (10:05)
[2022-03-04] MEDS: guaiFENesin 1,200 MG Tablet 1200 MG PO (10:06)
[2022-03-04] MEDS: Enoxaparin 30 MG/0.3 ML Syringe SC (10:06)
[2022-03-04] MEDS: Insulin Lispro 100 UNIT/ML INSULN.PEN SC ×2 (10:08→15:51)
[2022-03-04] MEDS: dexAMETHasone 4 MG Tablet 6 MG PO (10:10)
--- NOTE | 2022-03-04 14:20 | CASEMGMT ---
Discharge Wing Commander Danielle wilkerson/dionisio phlebotomist lab assistant got approval from Sandie at [place] that pre-cert has been obtained. SAM Valencia notified. Plan: So Beal Discharge Wing Commander
--- NOTE | 2022-03-04 14:41 | NURSING ---
All documentation and medication administration completed by Mp Couch RN completed under the supervision of this RN.
--- NOTE | 2022-03-04 14:53 | TREXTCAR_ITS ---
Diet Diet Order/Speech Therapy: 03/01/22 01:22 Diet: Consistent Carb - Calorie Controlled Food consistency:: Regular Liquid Consistency:: Regular/Thin Dietary Modifications:: Cardiac / Heart Healthy Type of Dietary Supplement:: Glucerna Shake Is pt able to select menu?: No Diet Comments: 120 ml glucerna shake BID w/ breakfast and dinner How many daily calories?: 1800 calorie Routine Orders/Code Status Enema Type: Fleetz Enema Frequency: Daily PRN Suppository Type: Dulcolax 10mg Suppository Frequency: Daily PRN O2 Liters per Minute: 2 O2 Frequency: Continuous Code Status: Full Code Suggestions for Active Care Change Position every (hours): 2 Times a day to sit in chair: 3 Therapies Physical Therapy: Eval and Treat Occupational Therapy: Eval and Treat Problem/Diagnosis (1) COVID-19: Status: Acute Code(s): U07.1 - COVID-19 (2) Pericardial effusion: Status: Acute Code(s): I31.3 - Pericardial effusion (noninflammatory) Plan Patient is a 76-year-old female who initially presented with shortness of breath secondary to COVID-19. Patient was admitted and received 3 days worth of remdesivir as well as p.o. steroids. Patient currently on 2 L nasal cannula. Patient has received PT and OT while admitted and this will need to be continued for patient to increase her strength. Patient has a history of diabetes melitis type II, hyperlipidemia, hypertension. Allergies/Procedures Done in Hospital Allergies promethazine HCl [From Phenergan] Adverse Reaction (Verified 02/28/22 20:56) Nausea Procedures: 2-D Echocardiogram Type of Care/Length of Stay Estimated LOS: Convalescent Care Less Than 30 days Type of Care Needed: Skilled Rehab Potential: Fair Prognosis: Fair Additional Orders/Day of Discharge Day of Discharge: 03/04/22 Dietary and Speech Recommendations Dietitian Recommendations/Changes: Continue 1800 calorie/consistent carbohydrate; cardiac diet Will d/c glucenra shake with medpass and offer 120 ml glucerna shake BID w/ breakfast and dinner. Will d/c ONS as appetite improves and intake is closer to ~75-100% meals. Discharge Plan Admission Admit Date/Time: 03/02/22 09:45 Primary Reason for Your Visit: Covid Attending Provider: Jaydon Olivas Primary Care Provider: Opal Bradford Consulting Providers: Kwesi Rodríguez ; Jairo Garza ; Eliot Galindo Discharge Orders/Prescriptions Prescriptions: New acetaminophen [Tylenol] 325 mg Tablet 650 mg PO Q6H PRN PRN (Reason: Pain Score 1-10/Temp > 100.7 F) Qty: 0 0RF dexamethasone 4 mg Tablet 6 mg PO DAILY 7 Days Qty: 0 0RF Mucus Relief ER 1,200 mg Tablet Extended Release 12hr 1,200 mg PO BID Qty: 0 0RF Continued hydroxychloroquine [Plaquenil] 200 mg tablet 200 mg PO BID melatonin 10 mg capsule 10 mg PO HS zolpidem 5 mg tablet 5 mg PO QHS PRN (Reason: Sleep) loperamide 2 mg capsule 2 mg PO DAILY PRN (Reason: Diarrhea) Label Comments: Take 1 capsule by mouth four times daily as needed for Diarrhea. turmeric 400 mg capsule 400 mg PO DAILY metformin 500 mg tablet extended release 24 hr 500 mg PO BID pioglitazone 15 mg tablet 15 mg PO DAILY Label Comments: Take 1 tablet by mouth once daily. escitalopram oxalate 20 MG tablet 30 mg PO QHS Label Comments: DEPRESSION, taken at bedtime memantine 10 MG tablet 10 mg PO BID atorvastatin 40 MG tablet 40 mg PO QHS Label Comments: CHOLESTEROL clopidogrel 75 MG tablet 75 mg PO DAILY Label Comments: BLOOD THINNER aspirin 81 MG tablet,chewable 81 mg PO DAILY@0800 Label Comments: HEART HEALTH cranberry 500 MG capsule 500 mg PO DAILY galantamine 24 MG capsule,ext rel. pellets 24 hr 24 mg PO QHS Label Comments: TAKE 1 CAPSULE BY MOUTH EVERY DAY amlodipine 10 MG tablet 20 mg PO DAILY potassium chloride 20 mEq tablet,ER particles/crystals 40 meq PO BID lisinopril-hydrochlorothiazide 20-12.5 mg tablet 1 tab PO DAILY Label Comments: Take 1 tablet by mouth once daily. dicyclomine 10 mg capsule 10 mg PO BID Label Comments: TAKE 1 CAPSULE BY MOUTH BEFORE MEALS AND AT BEDTIME NEEDED Referrals / Follow Up: Opal Bradford MD [Primary Care Provider] - 1 Week if not improving Disposition Disposition (needs filled in before D/C Order can be placed): Senior Living Facility
--- NOTE | 2022-03-04 14:53 | CASEMGMT ---
SW notified Nurse Practitioner that patient was approved for [facility]. Await orders. Annie OJEDA
--- NOTE | 2022-03-04 15:12 | PHA.DC.MR ---
Pharmacy Service has performed discharge medication reconciliation for this patient. The patient's discharge medication list was reviewed for discrepancies and discrepancies were resolved. Home Medications escitalopram oxalate 20 mg tablet 30 mg PO QHS mood enhancer 06/14/17 memantine 10 mg tablet 10 mg PO BID dementia 06/08/18 aspirin 81 mg chewable tablet 81 mg PO DAILY@0800 heart 06/10/18 atorvastatin 40 mg tablet 40 mg PO QHS cholesterol 06/10/18 clopidogrel 75 mg tablet 75 mg PO DAILY blood thinner 06/10/18 hydroxychloroquine 200 mg tablet (Plaquenil) 200 mg PO BID arthritis 09/08/18 amlodipine 10 mg tablet 20 mg PO DAILY bp 10/24/18 cranberry 500 mg capsule 500 mg PO DAILY urinary 10/24/18 galantamine 24 mg 24 hr capsule,extended release 24 mg PO QHS dementia 10/24/18 melatonin 10 mg capsule 10 mg PO HS sleep 04/27/19 potassium chloride 20 mEq tablet,extended release(part/cryst) 40 meq PO BID supplement 01/18/20 zolpidem 5 mg tablet 5 mg PO QHS PRN Sleep 01/18/20 loperamide 2 mg capsule 2 mg PO DAILY PRN Diarrhea 07/25/20 turmeric 400 mg capsule 400 mg PO DAILY 07/25/20 metformin 500 mg tablet,extended release 24 hr 500 mg PO BID diabetes 07/23/21 pioglitazone 15 mg tablet 15 mg PO DAILY supplement 07/23/21 dicyclomine 10 mg capsule 10 mg PO BID IBS 03/01/22 lisinopril 20 mg-hydrochlorothiazide 12.5 mg tablet 1 tab PO DAILY blood pressure 03/01/22 acetaminophen 325 mg tablet (Tylenol) 650 mg PO Q6H PRN PRN Pain Score 1-10/Temp > 100.7 F #0 tabs 03/04/22 dexamethasone 4 mg tablet 6 mg PO DAILY 7 days #0 tabs 03/04/22 guaifenesin 1,200 mg tablet, extended release 12 hr (Mucus Relief ER) 1,200 mg PO BID #0 tabs 03/04/22
--- NOTE | 2022-03-04 15:30 | CASEMGMT ---
SAM arranged for patient to get picked up at 5p via [employer] van. SAM faxed orders and slate picker time to [facility]. SAM also called patient's daughter and let her know. SAM also notified patient, RN, and alumnae secretary. SAM completed a 7000 in [facility]. All in agreement with discharge plan. Plan: d/c to [facility] under skilled level of care. Physicians transported via [employer] van. Annie OJEDA
--- NOTE | 2022-03-04 15:31 | PCM.DC.SUM ---
Documented by User: ALEXIA Hart 03/04/22 15:36 Providers Date of Admission: 03/02/22 Date of Discharge: 03/04/22 Primary Care Physician: Dr. Opal Bradford MD Reason For Visit: HYPOXIA Diagnosis Discharge Diagnosis (1) COVID-19: Status: Acute Code(s): U07.1 - COVID-19 (2) Pericardial effusion: Status: Acute Code(s): I31.3 - Pericardial effusion (noninflammatory) Plan Patient is a 76-year-old female who initially presented with shortness of breath secondary to COVID-19. Patient was admitted and received 3 days worth of remdesivir as well as p.o. steroids. Patient currently on 2 L nasal cannula. Patient has received PT and OT while admitted and this will need to be continued for patient to increase her strength. Patient has a history of diabetes melitis type II, hyperlipidemia, hypertension. Medications at Discharge Home Medications escitalopram oxalate 20 mg tablet 30 mg PO QHS mood enhancer 06/14/17 memantine 10 mg tablet 10 mg PO BID dementia 06/08/18 aspirin 81 mg chewable tablet 81 mg PO DAILY@0800 heart 06/10/18 atorvastatin 40 mg tablet 40 mg PO QHS cholesterol 06/10/18 clopidogrel 75 mg tablet 75 mg PO DAILY blood thinner 06/10/18 hydroxychloroquine 200 mg tablet (Plaquenil) 200 mg PO BID arthritis 09/08/18 amlodipine 10 mg tablet 20 mg PO DAILY bp 10/24/18 cranberry 500 mg capsule 500 mg PO DAILY urinary 10/24/18 galantamine 24 mg 24 hr capsule,extended release 24 mg PO QHS dementia 10/24/18 melatonin 10 mg capsule 10 mg PO HS sleep 04/27/19 potassium chloride 20 mEq tablet,extended release(part/cryst) 40 meq PO BID supplement 01/18/20 zolpidem 5 mg tablet 5 mg PO QHS PRN Sleep 01/18/20 loperamide 2 mg capsule 2 mg PO DAILY PRN Diarrhea 07/25/20 turmeric 400 mg capsule 400 mg PO DAILY 07/25/20 metformin 500 mg tablet,extended release 24 hr 500 mg PO BID diabetes 07/23/21 pioglitazone 15 mg tablet 15 mg PO DAILY supplement 07/23/21 dicyclomine 10 mg capsule 10 mg PO BID IBS 03/01/22 lisinopril 20 mg-hydrochlorothiazide 12.5 mg tablet 1 tab PO DAILY blood pressure 03/01/22 acetaminophen 325 mg tablet (Tylenol) 650 mg PO Q6H PRN PRN Pain Score 1-10/Temp > 100.7 F #0 tabs 03/04/22 dexamethasone 4 mg tablet 6 mg PO DAILY 7 days #0 tabs 03/04/22 guaifenesin 1,200 mg tablet, extended release 12 hr (Mucus Relief ER) 1,200 mg PO BID #0 tabs 03/04/22 Hospital Course Operations None Procedures 2-D Echocardiogram Summary of Care Provided Minutes Spent on Discharge: 35 Hospital Course: Patient is a 76-year-old female who initially presented with shortness of breath secondary to COVID-19.? Patient was admitted and received 3 days worth of remdesivir as well as p.o. steroids.? Patient currently on 2 L nasal cannula.? Echocardiogram demonstrates EF 55%. Patient has received PT and OT while admitted and this will need to be continued for patient to increase her strength.? Patient has a history of diabetes melitis type II, hyperlipidemia, hypertension. Physical Exam Const alert, oriented x3 and no apparent distress HEENT normocephalic and head/scalp atraumatic Eyes conjunctivae normal and no scleral icterus Neck no lymphadenopathy and supple Resp normal respiratory effort Resp Narrative: Bibasilar crackles Auscultation: crackles bilateral base Cardio regular rate, regular rhythm, S1 normal heart sound and S2 normal heart sound GI normal to inspection, nondistended, normoactive bowel sounds, soft to palpation and non-tender Extremity normal to inspection, full ROM and no clubbing, cyanosis or edema Neuro oriented x3, moves all extremities, no focal motor deficits and no sensory deficits noted Sensorium / Orientation: awake and alert Psych affect normal Weight / BMI Weight Weight: 212 lb 4.882 oz Body Mass Index (BMI) 36.4 ABG / Lab / Microbiology Data Result Diagrams: 03/04/22 06:25 03/04/22 06:25 Laboratory: Laboratory Results - last 24 hr 03/03/22 16:19: POC Glucose 260 H 03/03/22 20:49: POC Glucose 332 H 03/04/22 06:16: POC Glucose 142 H 03/04/22 06:25: WBC 4.5, RBC 3.99 L, Hgb 12.6, Hct 37.2, MCV 93.2, MCH 31.6, MCHC 33.9, RDW Std Deviation 46.5 H, RDW Coeff of Carrie 13.6, Plt Count 175, MPV 10.7, Immature Gran % (Auto) 0.200, Neut % (Auto) 57.9, Lymph % (Auto) 27.6, [place] % (Auto) 14.3 H, Eos % (Auto) 0.0, Baso % (Auto) 0.0, Absolute Neuts (auto) 2.6, Absolute Lymphs (auto) 1.24, Nucleated RBC % 0 03/04/22 06:25: Sodium 137, Potassium 4.5, Chloride 107, Carbon Dioxide 26.0, Anion Gap 4 L, BUN 27 H, Creatinine 0.58, Estim Creat Clear Calc 41.33, Est GFR (MDRD) Af Amer 130, Est GFR (MDRD) Non-Af 107, BUN/Creatinine Ratio 46.5 H, Glucose 146 H, Calcium 8.3 L Microbiology: Microbiology 02/28/22 21:31 Nasal Secretion SARS-CoV-2 Antigen (Rapid) - Final SARS-CoV-2 (COVID 19) Meaningful Use Info Meaningful Use Diagnoses (Choose all that apply): None applicable Discharge Plan Admission Admit Date/Time: 03/02/22 09:45 Primary Reason for Your Visit: Dinesh Attending Provider: Jaydon Olivas Primary Care Provider: Opal Bradford Consulting Providers: Kwesi Rodríguez ; Jairo Garza ; Eliot Galindo Discharge Orders/Prescriptions Prescriptions: New acetaminophen [Tylenol] 325 mg Tablet 650 mg PO Q6H PRN PRN (Reason: Pain Score 1-10/Temp > 100.7 F) Qty: 0 0RF dexamethasone 4 mg Tablet 6 mg PO DAILY 7 Days Qty: 0 0RF Mucus Relief ER 1,200 mg Tablet Extended Release 12hr 1,200 mg PO BID Qty: 0 0RF Continued hydroxychloroquine [Plaquenil] 200 mg tablet 200 mg PO BID melatonin 10 mg capsule 10 mg PO HS zolpidem 5 mg tablet 5 mg PO QHS PRN (Reason: Sleep) loperamide 2 mg capsule 2 mg PO DAILY PRN (Reason: Diarrhea) Label Comments: Take 1 capsule by mouth four times daily as needed for Diarrhea. turmeric 400 mg capsule 400 mg PO DAILY metformin 500 mg tablet extended release 24 hr 500 mg PO BID pioglitazone 15 mg tablet 15 mg PO DAILY Label Comments: Take 1 tablet by mouth once daily. escitalopram oxalate 20 MG tablet 30 mg PO QHS Label Comments: DEPRESSION, taken at bedtime memantine 10 MG tablet 10 mg PO BID atorvastatin 40 MG tablet 40 mg PO QHS Label Comments: CHOLESTEROL clopidogrel 75 MG tablet 75 mg PO DAILY Label Comments: BLOOD THINNER aspirin 81 MG tablet,chewable 81 mg PO DAILY@0800 Label Comments: HEART [employer] cranberry 500 MG capsule 500 mg PO DAILY galantamine 24 MG capsule,ext rel. pellets 24 hr 24 mg PO QHS Label Comments: TAKE 1 CAPSULE BY MOUTH EVERY DAY amlodipine 10 MG tablet 20 mg PO DAILY potassium chloride 20 mEq tablet,ER particles/crystals 40 meq PO BID lisinopril-hydrochlorothiazide 20-12.5 mg tablet 1 tab PO DAILY Label Comments: Take 1 tablet by mouth once daily. dicyclomine 10 mg capsule 10 mg PO BID Label Comments: TAKE 1 CAPSULE BY MOUTH BEFORE MEALS AND AT BEDTIME NEEDED Referrals / Follow Up: Opal Bradford MD [Primary Care Provider] - 1 Week if not improving Disposition Disposition (needs filled in before D/C Order can be placed): Detention Facility Documented by User: Dr. Jaydon Olivas DO 03/04/22 17:26 Providers Date of Admission: 03/02/22 Reason For Visit: HYPOXIA Diagnosis Discharge Diagnosis (1) COVID-19: Status: Acute Code(s): U07.1 - COVID-19 (2) Pericardial effusion: Status: Acute Code(s): I31.3 - Pericardial effusion (noninflammatory) Medications at Discharge Home Medications escitalopram oxalate 20 mg tablet 30 mg PO QHS mood enhancer 06/14/17 memantine 10 mg tablet 10 mg PO BID dementia 06/08/18 aspirin 81 mg chewable tablet 81 mg PO DAILY@0800 heart 06/10/18 atorvastatin 40 mg tablet 40 mg PO QHS cholesterol 06/10/18 clopidogrel 75 mg tablet 75 mg PO DAILY blood thinner 06/10/18 hydroxychloroquine 200 mg tablet (Plaquenil) 200 mg PO BID arthritis 09/08/18 amlodipine 10 mg tablet 20 mg PO DAILY bp 10/24/18 cranberry 500 mg capsule 500 mg PO DAILY urinary 10/24/18 galantamine 24 mg 24 hr capsule,extended release 24 mg PO QHS dementia 10/24/18 melatonin 10 mg capsule 10 mg PO HS sleep 04/27/19 potassium chloride 20 mEq tablet,extended release(part/cryst) 40 meq PO BID supplement 01/18/20 zolpidem 5 mg tablet 5 mg PO QHS PRN Sleep 01/18/20 loperamide 2 mg capsule 2 mg PO DAILY PRN Diarrhea 07/25/20 turmeric 400 mg capsule 400 mg PO DAILY 07/25/20 metformin 500 mg tablet,extended release 24 hr 500 mg PO BID diabetes 07/23/21 pioglitazone 15 mg tablet 15 mg PO DAILY supplement 07/23/21 dicyclomine 10 mg capsule 10 mg PO BID IBS 03/01/22 lisinopril 20 mg-hydrochlorothiazide 12.5 mg tablet 1 tab PO DAILY blood pressure 03/01/22 acetaminophen 325 mg tablet (Tylenol) 650 mg PO Q6H PRN PRN Pain Score 1-10/Temp > 100.7 F #0 tabs 03/04/22 dexamethasone 4 mg tablet 6 mg PO DAILY 7 days #0 tabs 03/04/22 guaifenesin 1,200 mg tablet, extended release 12 hr (Mucus Relief ER) 1,200 mg PO BID #0 tabs 03/04/22 ABG / Lab / Microbiology Data Result Diagrams: 03/04/22 06:25 03/04/22 06:25 Discharge Plan Admission Admit Date/Time: 03/02/22 09:45 Primary Reason for Your Visit: Dinesh Attending Provider: Jaydon Olivas Primary Care Provider: Opal Bradford Consulting Providers: Kwesi Rodríguez ; Jairo Garza ; Eliot Galindo Discharge Orders/Prescriptions Prescriptions: New acetaminophen [Tylenol] 325 mg Tablet 650 mg PO Q6H PRN PRN (Reason: Pain Score 1-10/Temp > 100.7 F) Qty: 0 0RF dexamethasone 4 mg Tablet 6 mg PO DAILY 7 Days Qty: 0 0RF Mucus Relief ER 1,200 mg Tablet Extended Release 12hr 1,200 mg PO BID Qty: 0 0RF Continued hydroxychloroquine [Plaquenil] 200 mg tablet 200 mg PO BID melatonin 10 mg capsule 10 mg PO HS zolpidem 5 mg tablet 5 mg PO QHS PRN (Reason: Sleep) loperamide 2 mg capsule 2 mg PO DAILY PRN (Reason: Diarrhea) Label Comments: Take 1 capsule by mouth four times daily as needed for Diarrhea. turmeric 400 mg capsule 400 mg PO DAILY metformin 500 mg tablet extended release 24 hr 500 mg PO BID pioglitazone 15 mg tablet 15 mg PO DAILY Label Comments: Take 1 tablet by mouth once daily. escitalopram oxalate 20 MG tablet 30 mg PO QHS Label Comments: DEPRESSION, taken at bedtime memantine 10 MG tablet 10 mg PO BID atorvastatin 40 MG tablet 40 mg PO QHS Label Comments: CHOLESTEROL clopidogrel 75 MG tablet 75 mg PO DAILY Label Comments: BLOOD THINNER aspirin 81 MG tablet,chewable 81 mg PO DAILY@0800 Label Comments: HEART HEALTH cranberry 500 MG capsule 500 mg PO DAILY galantamine 24 MG capsule,ext rel. pellets 24 hr 24 mg PO QHS Label Comments: TAKE 1 CAPSULE BY MOUTH EVERY DAY amlodipine 10 MG tablet 20 mg PO DAILY potassium chloride 20 mEq tablet,ER particles/crystals 40 meq PO BID lisinopril-hydrochlorothiazide 20-12.5 mg tablet 1 tab PO DAILY Label Comments: Take 1 tablet by mouth once daily. dicyclomine 10 mg capsule 10 mg PO BID Label Comments: TAKE 1 CAPSULE BY MOUTH BEFORE MEALS AND AT BEDTIME NEEDED Referrals / Follow Up: Opal Bradford MD [Primary Care Provider] - 1 Week if not improving Disposition Disposition (needs filled in before D/C Order can be placed): Detention Facility Charges/Coding Addendum Addendum: Patient was seen and examined independently of Kathleen Church, we received approval for the patient to go to an extended care facility for short-term rehab services today. Patient told this examiner that she was unaware that she was going to a retirement facility-foster care social worker and care management however states that the patient is aware that she is going to a skilled facility. Patient is currently on room air at this time On examination she appeared older than her stated age, she does not appear to be in any distress. Vital signs as documented. Skin warm and dry and without overt rashes. Neck without JVD, thyroid appears normal, trachea is midline, neck is supple. Lungs clear, normal air movement was noted. Heart exam notable for regular rhythm, normal sounds and absence of murmurs, rubs or gallops. Abdomen unremarkable and without evidence of organomegaly, masses, or abdominal aortic enlargement, bowel sounds are present in all 4 quadrants, no abdominal tenderness was noted. Extremities nonedematous, no cyanosis was noted, no clubbing was noted. Neuro: Cranial nerves II through XII are grossly intact, no focal motor deficits were noted, sensation to light touch and pinprick is intact, motor exam 5/5 throughout. Psych: Patient is alert and oriented x3, she does not appear anxious or depressed, she does not appear agitated. Impression: #1 hypoxia secondary to COVID-19 infection-resolved at this time-continue dexamethasone, patient has finished her remdesivir, she appears stable for discharge to extended-care facility at this time #2 essential hypertension-continue present medications at the extended care facility #3 type 2 diabetes-patient will resume her oral medications for diabetes #4 trivial pericardial effusion-this is nonsignificant and does not appear to need treated #5 acute debility-patient will be discharged to a retirement facility for short-term rehab services #6 cerebrovascular disease-continue present treatment I have reviewed Kathleen Church's discharge summary including her medical assessment and plan of care and with the above additions endorse it. Total clinical time spent by myself addressing the patient's medical issues, reviewing the data, and collaborating with patient's care team: 30 minutes Visit Charges Inpatient E&M: [id number] Disch Hosp
[2022-03-04 16:25] LABS: Bedside Glucose 188 mg/dL (74-106)
[2022-03-04 16:25] LABS: Bedside Glucose 287 mg/dL (74-106)
--- NOTE | 2022-03-04 16:46 | NURSING ---
Report called to [facility]
== END 2022-03-04 18:20 | disposition skilled nursing facility (03) | DRG 177 ==
LOC: ED 03-01 00:15 → PCU 03-01 01:07
PROVIDERS: Internal Medicine; Nurse Practitioner Family; Admitting Provider Hospitalist; Emergency Provider Emergency Medicine; PCP Internal Medicine; Visit Provider Internal Medicine
DX: U07.1 COVID-19 (principal); J12.82 Pneumonia due to coronavirus disease 2019; I31.3 Pericardial effusion (noninflammatory); I27.20 Pulmonary hypertension, unspecified; F03.90 Unspecified dementia, unspecified severity, without behavioral disturbance, psychotic disturbance, mood disturbance, and anxiety; E11.51 Type 2 diabetes mellitus with diabetic peripheral angiopathy without gangrene; E11.65 Type 2 diabetes mellitus with hyperglycemia; M06.9 Rheumatoid arthritis, unspecified; E78.5 Hyperlipidemia, unspecified; I10 Essential (primary) hypertension; I65.21 Occlusion and stenosis of right carotid artery; R09.02 Hypoxemia; E66.9 Obesity, unspecified; Z68.37 Body mass index [BMI] 37.0-37.9, adult; Z90.49 Acquired absence of other specified parts of digestive tract; Z79.02 Long term (current) use of antithrombotics/antiplatelets; Z79.82 Long term (current) use of aspirin; Z79.84 Long term (current) use of oral hypoglycemic drugs; Z79.899 Other long term (current) drug therapy; Z86.73 Personal history of transient ischemic attack (TIA), and cerebral infarction without residual deficits; Z87.891 Personal history of nicotine dependence
CPT/HCPCS: 36415; 71045; 74177; 80048; 80053; 80076; 81001; 82962; 83690; 83735; 84075; 84100; 84145; 85025; 85027; 87811; 93005; 93306; 94762; 97110; 97162; 97166; 97530; 97535; 97802; 99251; 99285; J7030; J7040; J7050; P9612; Q9967; A4216; G0463; J0248; J2405

== ENCOUNTER 2022-03-27 02:00 | Inpatient (IN) | payer MEDICARE, SELFPAY ==
[2022-03-27] VITALS (22 sets, daily range): BP systolic 93–125; BP diastolic 40–61; PULSE 63–73; RESP 16–18; TEMP 36.3–37.3; O2SAT 94–97; BMI 32.8
--- NOTE | 2022-03-27 02:58 | HP.PCM.HOS_ITS ---
HPI - General General Date of Admission: 03/27/22 Date of Service: 03/27/22 Chief Complaint: dark tarry stools HPI Narrative EVARISTO WESTFALL, is a 76 F with a significant history of dementia; left CVA with residual weakness who [facility] to [facility] ED with dark and tarry stools. Reportedly at [facility] ED occult stools tested positive. Also patient reports of upper abdominal pain. She reported vomiting about 3 days ago. Is a patient report that she has hemorrhoids and she has been having bloody stools all the time. Patient is a poor historian, unable to provide a comprehensive history. On transfer to our hospital nurse reported a bloody smear of stool. [facility] Medical History (Updated 03/27/22 @ 04:[address] Kwesi Rodríguez MD) Carotid stenosis, right Confusion CVA (cerebral infarction) (11/2012) Dementia associated with other underlying disease with behavioral disturbance Depression Diabetic neuropathy Difficulty walking Essential hypertension History of suicide attempt Hyperlipidemia Left hemiparesis Localized swelling of both lower legs mechanical fall Obesity Physical debility Pre-operative cardiovascular examination Pulmonary hypertension Right bundle branch block Tobacco abuse Type 2 diabetes mellitus UTI (urinary tract infection) Weakness Home Medications escitalopram oxalate 20 mg tablet 30 mg PO QHS mood enhancer 06/14/17 [History Last Taken 10/23/18] memantine 10 mg tablet 10 mg PO BID dementia 06/08/18 [History Last Taken 10/23/18] aspirin 81 mg chewable tablet 81 mg PO DAILY@0800 heart 06/10/18 [History Last Taken 10/22/18] atorvastatin 40 mg tablet 40 mg PO QHS cholesterol 06/10/18 [History Last Taken 10/23/18] clopidogrel 75 mg tablet 75 mg PO DAILY blood thinner 06/10/18 [History Last Taken 10/22/18] hydroxychloroquine 200 mg tablet (Plaquenil) 200 mg PO BID arthritis 09/08/18 [History Last Taken 10/22/18] amlodipine 10 mg tablet 20 mg PO DAILY bp 10/24/18 [History Last Taken 10/22/18] cranberry 500 mg capsule 400 mg PO DAILY urinary 10/24/18 [History Last Taken 10/22/18] galantamine 24 mg 24 hr capsule,extended release 24 mg PO QHS dementia 10/24/18 [History Last Taken 10/23/18] melatonin 10 mg capsule 10 mg PO HS sleep 04/27/19 [History Last Taken Unknown] potassium chloride 20 mEq tablet,extended release(part/cryst) 40 meq PO BID supplement 01/18/20 [History Last Taken Unknown] zolpidem 5 mg tablet 5 mg PO QHS PRN PRN Sleep 01/18/20 [History Last Taken Unknown] loperamide 2 mg capsule 2 mg PO DAILY PRN PRN Diarrhea 07/25/20 [History Last Taken Unknown] turmeric 400 mg capsule 400 mg PO DAILY 07/25/20 [History Last Taken Unknown] metformin 500 mg tablet,extended release 24 hr 500 mg PO BID diabetes 07/23/21 [History Last Taken Unknown] pioglitazone 15 mg tablet 15 mg PO DAILY supplement 07/23/21 [History Last Taken Unknown] dicyclomine 10 mg capsule 10 mg PO BID IBS 03/01/22 [History Last Taken Unknown] lisinopril 20 mg-hydrochlorothiazide 12.5 mg tablet 1 tab PO DAILY blood pressure 03/01/22 [History Last Taken Unknown] acetaminophen 325 mg tablet (Tylenol) 650 mg PO Q6H PRN PRN Pain Score 1-10/Temp > 100.7 F #0 tabs 03/04/22 [Rx Last Taken Unknown] dexamethasone 4 mg tablet 6 mg PO DAILY 7 days #0 tabs 03/04/22 [Rx Last Taken Unknown] guaifenesin 1,200 mg tablet, extended release 12 hr (Mucus Relief ER) 1,200 mg PO BID #0 tabs 03/04/22 [Rx Last Taken Unknown] okrpjynggr-hxjlngw-dsjovsojkmrzu 15 mg-3.6 mg lozenges 1 bao mucous membrane Q2H PRN PRN cough, sore throat 03/27/22 [History Last Taken Unknown] Allergy/AdvReac Type Severity Reaction Status Date / Time promethazine HCl AdvReac Nausea Verified 02/28/22 20:56 [From Phenergan] Family History Father Alcoholism Depression Son Alcoholism Depression Diabetes Hypertension Daughter Alcoholism Asthma Depression Hypertension Migraines Mother Breast cancer Depression Surgical History History of appendectomy History of carotid endarterectomy (~10/2018) History of dilation and curettage History of tonsillectomy and adenoidectomy History of tubal ligation Status post lumbar spine surgery for decompression of spinal cord Social History Smoking Status: Former smoker pack-years: 25 how long ago did patient quit smokin years ago alcohol intake: never substance use type: does not use caffeine: Yes Type: coffee Number of servings: 2 ROS Review of Systems ROS Unobtainable: other Details: Patient is a poor historian, unable to provide a comprehensive history. Vital Signs Vital Signs Vital Signs: 03/27/22 02:50 03/27/22 01:57 Temperature 98.3 F Temperature Source Oral Pulse Rate 64 Respiratory Rate 18 Respiratory Effort Normal Respiratory Depth Normal Respiratory Pattern Normal Blood Pressure 113/43 L Blood Pressure Mean 66 Blood Pressure Source Monitor Blood Pressure Position Semi-Fowlers Blood Pressure Location Right Arm Pulse Ox 96 Oxygen Delivery Method Room Air Room Air Weight Weight: 86.7 kg Body Mass Index (BMI) 32.8 Physical Exam Narrative Physical exam: General: Well-nourished, well-developed. Head: Normocephalic, atraumatic, no tenderness Eyes: Vision is grossly intact. EOMI ENT, no trauma, dry mucous membranes, no rhinorrhea Neck: Nontender, full range of motion, CVS: Regular rate and rhythm. S1-S2 present. No murmur, gallop or rub. Respiratory : clear to auscultation bilaterally, chest wall nontender, no wheezing Abdomen: Soft, nontender, nondistended, normal bowel sounds, no masses : Deferred Back: Nontender, no CVA tenderness. Extremities: Nontender full range of motion, no trauma Skin: Normal color, no trauma, abrasions Neuro: Alert, oriented, cranial nerves II through XII grossly intact. Unable to lift left lower extremity. Left upper extremity strength 4 out of 5. Unable to fully extend fingers of left hands. Right upper extremity and right lower extremity strength 5 out of 5. Psychiatry: Normal mood. Normal affect. Not depressed. Not anxious. Assessment & Plan Assessment/Plan (1) ABLA (acute blood loss anemia): (2) Type 2 diabetes mellitus: QUALIFIERS: Diabetes mellitus complication status: with unspecified complications Diabetes mellitus prison insulin use: without prison use Qualified Code(s): E11.8 - Type 2 diabetes mellitus with unspecified complications PLAN: Plan Acute blood loss anemia Hemoglobin on presentation at [facility] ED was 8.1. Hemoglobin from the same hospital on 03/17/2022 was 13.1. Review of hospital record shows baseline hemoglobin of about 13. BUN at outside hospital on presentation was 32. Her BUN on 03/17/2022 at outside hospital was 39. Review of community records shows that this is above her baseline. Trend BMP H&H on arrival at our hospital was 7.1. Type and cross for 2 units of blood to be transfused 1 units ordered. Suspect upper GI bleed with abdominal pain. Protonix drip ordered. Gentle IV hydration. N.p.o. Gastroenterology consult. Hold home antiplatelets (aspirin and Plavix). Trend H&H. Diabetes mellitus Review of [facility] ED record shows hyperglycemia. Hold home metformin Monitor Accu-Cheks Correction scale insulin ordered. History of hypertension Blood pressure are soft. Hold home blood pressure medications. Trend blood pressure. DVT prophylaxis: SCDs ordered. Charges/Coding Visit Charges Inpatient E&M: 72242 Init Hosp L3
[2022-03-27 03:56] LABS: Hematocrit 21.6 % (37-47); Hemoglobin 7.1 g/dL (12.0-15.0)
[2022-03-27 04:14] LABS: Anion Gap 5 (5-15); BUN 29 mg/dL (7-18); BUN/Creat Ratio 47.7 RATIO (10-20); Calcium,Total 7.5 mg/dL (8.5-10.1); Chloride 104 mmol/L (98-107); Creatinine, Serum 0.61 mg/dL (0.55-1.02); EST Glomerular Filtration Rate 102 mL/min (>60); Est Glom Filt Rate - Afr Amer 123 mL/min (>60); Estimated Creatinine Clearance 41.33 ml/min; Glucose 216 mg/dL (74-106); Potassium 3.3 mmol/L (3.5-5.1); Sodium Level 135 mmol/L (136-145)
[2022-03-27] MEDS: 0.9% Normal Saline 1,000 ML 75 ML IV ×2 (05:00→17:28)
[2022-03-27] MEDS: Insulin Lispro 100 UNIT/ML INSULN.PEN SC ×3 (06:37→17:27)
[2022-03-27] MEDS: 0.9% Saline Lock 10 ML Syringe IV ×2 (06:40→12:37)
--- NOTE | 2022-03-27 09:00 | PCM.PN.HOSP ---
Subjective Subjective Feels well. Wants to go home. Objective Data Objective Data Vital Signs: Vital Signs Temp Pulse Resp BP Pulse Ox O2 Del Method 36.6 C 66 18 122/61 H 95 Room Air 03/27/22 07:40 03/27/22 07:40 03/27/22 07:40 03/27/22 07:40 03/27/22 07:40 03/27/22 08:08 Oxygen Delivery Method Room Air Weight: 86.7 kg Body Mass Index (BMI) 32.8 Intake & Output: Intake and Output for Last 24 Hours 03/25/22 03/26/22 03/27/22 23:59 23:59 23:59 Intake Total 0 / 0 Output Total 0 / 0 Balance 0 / 0 Lab / Micro Data Result Diagrams: 03/27/22 10:20 03/27/22 03:38 Labs: Laboratory Results - last 24 hr 03/27/22 03:38: Hgb 7.1 L, Hct 21.6 L 03/27/22 03:38: Sodium 135 L, Potassium 3.3 L, Chloride 104, Carbon Dioxide 26.0, Anion Gap 5, BUN 29 H, Creatinine 0.61, Estim Creat Clear Calc 41.33, Est GFR (MDRD) Af Amer 123, Est GFR (MDRD) Non-Af 102, BUN/Creatinine Ratio 47.7 H, Glucose 216 H, Calcium 7.5 L 03/27/22 04:37: Blood Type A NEGATIVE, Antibody Screen NEGATIVE, Crossmatch See Detail Physical Exam Const alert and no apparent distress Resp normal respiratory effort and no retractions Cardio regular rate, regular rhythm, S1 normal heart sound and S2 normal heart sound GI normal to inspection, nondistended, normoactive bowel sounds and soft to palpation Assessment & Plan Assessment/Plan (1) ABLA (acute blood loss anemia): PLAN: Acute blood loss anemia Hemoglobin on presentation at [facility] ED was 8.1. Hemoglobin from the same hospital on 03/17/2022 was 13.1. Review of hospital record shows baseline hemoglobin of about 13. BUN at outside hospital on presentation was 32. Her BUN on 03/17/2022 at outside hospital was 39. Review of community records shows that this is above her baseline. Trend BMP H&H on arrival at our hospital was 7.1. Type and cross for 2 units of blood to be transfused 1 units ordered. Suspect upper GI bleed with abdominal pain. Protonix drip ordered. Gentle IV hydration. N.p.o. Gastroenterology consult. Hold home antiplatelets (aspirin and Plavix). Trend H&H. (2) GI bleed: PLAN: Patient had EGD today that showed grade D reflux esophagitis, medium size hiatal hernia and multiple oozing duodenal ulcers with a visible vessel. Treated with heater probe. GI recommending clear liquids and no aspirin, NSAIDs for 13 days. Continue with pantoprazole 40 twice daily for 8 weeks and sucralfate 1 g 4 times daily for 4 weeks. (3) Type 2 diabetes mellitus: QUALIFIERS: Diabetes mellitus complication status: with unspecified complications Diabetes mellitus intermediate card tender insulin use: without intermediate card tender use Qualified Code(s): E11.8 - Type 2 diabetes mellitus with unspecified complications PLAN: Diabetes mellitus Review of [facility] ED record shows hyperglycemia. Hold home metformin Monitor Accu-Cheks Correction scale insulin ordered. PLAN: Plan History of hypertension Blood pressure are soft. Hold home blood pressure medications. Trend blood pressure. DVT prophylaxis: SCDs ordered. Charges/Coding Visit Charges Inpatient E&M: 56060 Subs Hosp L2
--- NOTE | 2022-03-27 10:00 | CON.PCM_ITS ---
Assessment & Plan Assessment/Plan (1) ABLA (acute blood loss anemia): PLAN: The differential diagnosis for GI bleed and acute blood loss anemia would be upper GI bleed secondary to peptic ulcer disease, angiodysplasia, neoplasia. She should undergo an upper endoscopy to evaluate upper GI tract. Patient and patient family was power of tax attorney is was explained alternatives, risk, benefits include not with any bleeding, infection, sepsis, perforation, need for emergent . Have an ASA of 3. HPI Consult Data Date of Consult: 03/26/22 HPI Narrative Reason for Consultation: GI bleed HPI Narrative: EVARISTO WESTFALL, is a 76 F who presents from outside hospital with GI bleed. She has a past medical history significant for dementia; left CVA with residual w earosa who was sent from the senior care to [facility] ED with dark and tarry stools.? Reportedly at [facility] ED occult stools tested positive.? Also patient reports of upper abdominal pain.? She reported vomiting about 3 days ago. She reports that she has hemorrhoids and she has been having bloody stools all the? time. Patient is a poor historian, unable to provide a comprehensive history. On transfer to our hospital nurse reported a bloody smear of stool. ?She is on aspirin and Plavix because history of CVA and CAD. All other 16 review of systems are negative except as per body mentioned HPI. [facility] Medical History (Updated 03/27/22 @ 04:[address] Kwesi Rodríguez MD) Carotid stenosis, right Confusion CVA (cerebral infarction) (11/2012) Dementia associated with other underlying disease with behavioral disturbance Depression Diabetic neuropathy Difficulty walking Essential hypertension History of suicide attempt Hyperlipidemia Left hemiparesis Localized swelling of both lower legs mechanical fall Obesity Physical debility Pre-operative cardiovascular examination Pulmonary hypertension Right bundle branch block Tobacco abuse Type 2 diabetes mellitus UTI (urinary tract infection) Weakness Home Medications escitalopram oxalate 20 mg tablet 30 mg PO QHS mood enhancer 06/14/17 [History Last Taken 10/23/18] memantine 10 mg tablet 10 mg PO BID dementia 06/08/18 [History Last Taken 10/23/18] aspirin 81 mg chewable tablet 81 mg PO DAILY@0800 heart 06/10/18 [History Last Taken 10/22/18] atorvastatin 40 mg tablet 40 mg PO QHS cholesterol 06/10/18 [History Last Taken 10/23/18] clopidogrel 75 mg tablet 75 mg PO DAILY blood thinner 06/10/18 [History Last Taken 10/22/18] hydroxychloroquine 200 mg tablet (Plaquenil) 200 mg PO BID arthritis 09/08/18 [History Last Taken 10/22/18] amlodipine 10 mg tablet 20 mg PO DAILY bp 10/24/18 [History Last Taken 10/22/18] cranberry 500 mg capsule 400 mg PO DAILY urinary 10/24/18 [History Last Taken 10/22/18] galantamine 24 mg 24 hr capsule,extended release 24 mg PO QHS dementia 10/24/18 [History Last Taken 10/23/18] melatonin 10 mg capsule 10 mg PO HS sleep 04/27/19 [History Last Taken Unknown] potassium chloride 20 mEq tablet,extended release(part/cryst) 40 meq PO BID supplement 01/18/20 [History Last Taken Unknown] zolpidem 5 mg tablet 5 mg PO QHS PRN PRN Sleep 01/18/20 [History Last Taken Unknown] loperamide 2 mg capsule 2 mg PO DAILY PRN PRN Diarrhea 07/25/20 [History Last Taken Unknown] turmeric 400 mg capsule 400 mg PO DAILY 07/25/20 [History Last Taken Unknown] metformin 500 mg tablet,extended release 24 hr 500 mg PO BID diabetes 07/23/21 [History Last Taken Unknown] pioglitazone 15 mg tablet 15 mg PO DAILY supplement 07/23/21 [History Last Taken Unknown] dicyclomine 10 mg capsule 10 mg PO BID IBS 03/01/22 [History Last Taken Unknown] lisinopril 20 mg-hydrochlorothiazide 12.5 mg tablet 1 tab PO DAILY blood pressure 03/01/22 [History Last Taken Unknown] acetaminophen 325 mg tablet (Tylenol) 650 mg PO Q6H PRN PRN Pain Score 1-10/Temp > 100.7 F #0 tabs 03/04/22 [Rx Last Taken Unknown] dexamethasone 4 mg tablet 6 mg PO DAILY 7 days #0 tabs 03/04/22 [Rx Last Taken Unknown] guaifenesin 1,200 mg tablet, extended release 12 hr (Mucus Relief ER) 1,200 mg PO BID #0 tabs 03/04/22 [Rx Last Taken Unknown] rvdlxodhcp-cwtqtif-vchitfrellmmy 15 mg-3.6 mg lozenges 1 bao mucous membrane Q2H PRN PRN cough, sore throat 03/27/22 [History Last Taken Unknown] Allergy/AdvReac Type Severity Reaction Status Date / Time promethazine HCl AdvReac Nausea Verified 02/28/22 20:56 [From Phenergan] Family History Father Alcoholism Depression Son Alcoholism Depression Diabetes Hypertension Daughter Alcoholism Asthma Depression Hypertension Migraines Mother Breast cancer Depression Surgical History History of appendectomy History of carotid endarterectomy (~10/2018) History of dilation and curettage History of tonsillectomy and adenoidectomy History of tubal ligation Status post lumbar spine surgery for decompression of spinal cord Social History Smoking Status: Former smoker pack-years: 25 how long ago did patient quit smokin years ago alcohol intake: never substance use type: does not use caffeine: Yes Type: coffee Number of servings: 2 ROS Review of Systems ROS Unobtainable: other Details: Patient is a poor historian, unable to provide a comprehensive history. Physical Exam Narrative Physical exam: General: Well-nourished, well-developed. Head: Normocephalic, atraumatic, no tenderness Eyes: Vision is grossly intact. EOMI ENT, no trauma, dry mucous membranes, no rhinorrhea Neck: Nontender, full range of motion, CVS: Regular rate and rhythm. S1-S2 present. No murmur, gallop or rub. Respiratory : clear to auscultation bilaterally, chest wall nontender, no wheezing Abdomen: Soft, nontender, nondistended, normal bowel sounds, no masses : Deferred Back: Nontender, no CVA tenderness. Extremities: Nontender full range of motion, no trauma Skin: Normal color, no trauma, abrasions Neuro: Alert, oriented, cranial nerves II through XII grossly intact. Unable to lift left lower extremity. Left upper extremity strength 4 out of 5. Unable to fully extend fingers of left hands. Right upper extremity and right lower extremity strength 5 out of 5. Psychiatry: Normal mood. Normal affect. Not depressed. Not anxious. Lab / Micro Data Result Diagrams: 03/27/22 10:20 03/27/22 03:38 Labs: Laboratory Results - last 24 hr 03/27/22 03:38: Hgb 7.1 L, Hct 21.6 L 03/27/22 03:38: Sodium 135 L, Potassium 3.3 L, Chloride 104, Carbon Dioxide 26.0, Anion Gap 5, BUN 29 H, Creatinine 0.61, Estim Creat Clear Calc 41.33, Est GFR (MDRD) Af Amer 123, Est GFR (MDRD) Non-Af 102, BUN/Creatinine Ratio 47.7 H, Glucose 216 H, Calcium 7.5 L 03/27/22 04:37: Blood Type A NEGATIVE, Antibody Screen NEGATIVE, Crossmatch See Detail 03/27/22 10:20: Hgb 8.8 L, Hct 26.1 L 03/27/22 11:09: POC Glucose 158 H Charges/Coding Visit Charges Inpatient E&M: 11506 Init Hosp L2
--- NOTE | 2022-03-27 10:21 | CASEMGMT ---
Patient has a Healthcare Power of Electrical Installation Supervisor and a Healthcare Living Will on file at [facility]. Patient's daughter Carmen is her Healthcare Power of Electrical Installation Supervisor. Annie Serra [employer]YNETTE
[2022-03-27 10:29] LABS: Hematocrit 26.1 % (37-47); Hemoglobin 8.8 g/dL (12.0-15.0)
--- NOTE | 2022-03-27 10:31 | CASEMGMT ---
Readmission chart review: 02/28-03/04/22 COVID 03/27/22-current GI bleed, anemia Pt initially admitted with COVID. Pt lives with daughter and her BF and they had COVID prior to pt. Daughter assisted pt with most of her care. See CM note from 03/02/22 by this RN CM. Due to her own COVID illness, daughter was unable to take pt home at discharge and pt was discharged to [facility] in [place] on room air at rest and 2L w/ exertion. Per H&P, pt was seen at [facility] ED on 03/17/22 and then returned to [place], Hgb was 13.1 at that time. Hgb during previous visit here was in the 13's. Pt returned to [facility] as direct admit from [facility] ED for GI bleed. Pt's Hgb prior to transfer was 8.1 and on arrival to [facility] was 7.1. Pt transfused 1 unit PRBC and is now 8.8. Pt getting GI c/s, protonix gtt, and gentle IV hydration, home anti-platelets held. Plan is for pt to go back to [facility] at discharge. CM to follow. SStaten PEDRO CHAPPELL
--- NOTE | 2022-03-27 11:28 | CASEMGMT ---
Addendum entered by Annie Serra 03/27/22 11:42: [facility] is also in network. However, patient is almost into her co-pay days (194.50/day) and if she cannot afford this she will have to apply for Medicaid which [facility] does not accept. Annie OJEDA Original Note: SAM called patient's daughter, Nanci. Introduced self and role at [facility]. SAM asked Nanci if the plan is for patient to return to [facility]. Nanci said she doesn't think they have a choice due to patient's insurance. Patient's only other options in [facility] are: [place] and [facility]. Nanci said she does not want patient to go to either of those facilities. Nanci declined a list as she knows options and plan is to return to [facility]. SAM sent updates to [facility]. Patient will likely need a pre-cert to return. Annie OJEDA
[2022-03-27 11:30] LABS: Bedside Glucose 158 mg/dL (74-106)
--- NOTE | 2022-03-27 11:55 | OP.EGD_ITS ---
Patient Name: Yadi Larsen Procedure Date: 03/27/2022 11:32 AM Date of : 1945 Age: 76 Procedure: Upper GI endoscopy Indications: Melena Providers: Mir Bailey DO Medicines: Monitored Anesthesia Care Patient Profile: This is a 76 year old female. Refer to note in patient chart for documentation of history and physical. Patient has symptoms of acute epigastric abdominal pain. Complications: No immediate complications. Procedure: Pre-Anesthesia Assessment: - Prior to the procedure, a History and Physical was performed, and patient medications and allergies were reviewed. The risks and benefits of the procedure and the sedation options and risks were discussed with the patient. All questions were answered and informed consent was obtained. Patient identification and proposed procedure were verified by the physician in the pre-procedure area. Mental Status Examination: alert and oriented. Airway Examination: normal oropharyngeal airway and neck mobility. Respiratory Examination: clear to auscultation. CV Examination: normal. Prophylactic Antibiotics: The patient does not require prophylactic antibiotics. Prior Anticoagulants: The patient has taken no previous anticoagulant or antiplatelet agents. After reviewing the risks and benefits, the patient was deemed in satisfactory condition to undergo the procedure. The anesthesia plan was to use moderate sedation / analgesia (conscious sedation). Immediately prior to administration of medications, the patient was re-assessed for adequacy to receive sedatives. The heart rate, respiratory rate, oxygen saturations, blood pressure, adequacy of pulmonary ventilation, and response to care were monitored throughout the procedure. The physical status of the patient was re-assessed after the procedure. After obtaining informed consent, the endoscope was passed under direct vision. Throughout the procedure, the patient's blood pressure, pulse, and oxygen saturations were monitored continuously. The Endoscope was introduced through the mouth, and advanced to the second part of duodenum. The upper GI endoscopy was accomplished without difficulty. The patient tolerated the procedure well. Scope In: 11:38:31 AM Scope Out: 11:44:15 AM Total Procedure Duration Time 0 hours 5 minutes 44 seconds Findings: LA Grade D (one or more mucosal breaks involving at least 75% of esophageal circumference) esophagitis with no bleeding was found 36 to 38 cm from the incisors. A medium-sized hiatal hernia was present. Two oozing cratered duodenal ulcers with a visible vessel were found in the duodenal bulb. The largest lesion was 10 mm in largest dimension. Coagulation for hemostasis using heater probe was successful. Estimated blood loss was minimal. Impression: - LA Grade D reflux esophagitis. - Medium-sized hiatal hernia. - Multiple oozing duodenal ulcers with a visible vessel. Treated with a heater probe. - No specimens collected. Recommendation: - Return patient to hospital [facility] for ongoing care. - Clear liquid diet today. - No aspirin, ibuprofen, naproxen, or other non-steroidal anti-inflammatory drugs for 13 days. - Use Protonix (pantoprazole) 40 mg PO BID for 8 weeks. - Use sucralfate tablets 1 gram PO QID for 4 weeks. Procedure Code(s): --- Professional --- 44297, Esophagogastroduodenoscopy, flexible, transoral; with control of bleeding, any method CPT copyright 2017 [employer] [place] [employer]. All rights reserved. The codes documented in this report are preliminary and upon director field services review may be revised to meet current compliance requirements. Mir Bailey DO 03/27/2022 11:55:10 AM This report has been signed electronically. Number of Addenda: 0 Note Initiated On: 03/27/2022 11:32 AM
--- NOTE | 2022-03-27 11:56 | OP.CCLET_ITS ---
03/27/2022 Opal Bradford [address] [place] [address] Re : Upper GI endoscopy procedure for Yadi Larsen Dear Dr. Bradford This procedure was performed on Sunday, March 27, 2022. My impressions and recommendations are as follows: Impressions : - LA Grade D reflux esophagitis. - Medium-sized hiatal hernia. - Multiple oozing duodenal ulcers with a visible vessel. Treated with a heater probe. - No specimens collected. Recommendations : - Return patient to [facility] for [facility] care. - Clear liquid diet today. - No aspirin, ibuprofen, naproxen, or other non-steroidal anti-inflammatory drugs for 13 days. - Use Protonix (pantoprazole) 40 mg PO BID for 8 weeks. - Use sucralfate tablets 1 gram PO QID for 4 weeks. My findings are described in the full procedure note, which is enclosed. If I can be of further assistance, please feel free to contact me at . Sincerely, Mir Friend, 03/27/2022 11:55:10 AM This report has been signed electronically.
[2022-03-27 13:11] LABS: Bedside Glucose 156 mg/dL (74-106)
[2022-03-27 14:25] LABS: Bedside Glucose 196 mg/dL (74-106)
--- NOTE | 2022-03-27 14:33 | CASEMGMT ---
Addendum entered by Danielle Beal 03/27/22 14:48: Discharge Supervisor Taping Emilie reached out from [facility]. Pre-cert will be needed before patient returns. [facility] notified. Danielle Beal Discharge Supervisor Taping Original Note: Discharge Supervisor Taping Danielle d/c museum assistant reached out to Emilie at [facility]. Left a voicemail and email in regards to see if patient needs a pre-cert to return. Danielle Beal Discharge Supervisor Taping
[2022-03-27] MEDS: Sucralfate 1 GM Tablet PO ×2 (15:01→18:46)
[2022-03-27 18:00] LABS: Bedside Glucose 179 mg/dL (74-106)
[2022-03-27 22:40] LABS: Bedside Glucose 138 mg/dL (74-106)
[2022-03-28] VITALS (9 sets, daily range): BP systolic 103–119; BP diastolic 42–53; PULSE 59–99; RESP 16–18; TEMP 36.1–36.7; O2SAT 92–95
[2022-03-28] MEDS: 0.9% Normal Saline 1,000 ML 75 ML IV ×2 (05:43→20:00)
[2022-03-28 07:00] LABS: Bedside Glucose 138 mg/dL (74-106)
--- NOTE | 2022-03-28 08:32 | PN.HOSP_ITS ---
Subjective Subjective Denies complaints. Still wants to go home. Objective Data Objective Data Vital Signs: Vital Signs Temp Pulse Resp BP Pulse Ox O2 Del Method 36.1 C L 77 18 119/45 L 95 Room Air 03/28/22 03:15 03/28/22 07:38 03/28/22 03:15 03/28/22 03:15 03/28/22 03:15 03/28/22 03:15 Oxygen Delivery Method Room Air Weight: 86.7 kg Body Mass Index (BMI) 32.8 Intake & Output: Intake and Output for Last 24 Hours 03/26/22 03/27/22 03/28/22 23:59 23:59 23:59 Intake Total 1763.16 / 1763.16 918.75 / 918.75 Output Total 0 / 0 250 / 250 Balance 1763.16 / 1763.16 668.75 / 668.75 Medical Nutrition Assessment Dietitian: Malnutrition Criteria Met Start: 03/27/22 15:11 Freq: Status: Active Protocol: Document 03/27/22 15:11 AG (Rec: 03/27/22 15:11 [id number]) Nutrition Malnutrition Evidence of Malnutrition Exists Yes Malnutrition (severe): Acute Illness/Injury Evidenced By Suboptimal Energy Intake ( Severe),Weight Loss (Severe) Clinical Problem Acute Disease or Injury Related Malnutrition Etiology severe, acute malnutrition r/t GI dysfunction Signs/Symptoms as evidenced by unintentional wt loss of 10.7#/5% x 9 days, estimated PO intake meeting ~ 50% of estimated energy needs x 1 week Status Active Problem Recommendation Dietitian Recommendations/Changes recommend advance diet as tolerated to transitional; will add magic cup BID for additional calories/protein if consumed given acute malnutrition Lab / Micro Data Result Diagrams: 03/28/22 09:01 03/28/22 09:01 Labs: Laboratory Results - last 24 hr 03/27/22 04:37: Crossmatch See Detail 03/27/22 06:37: POC Glucose 196 H 03/27/22 10:20: Hgb 8.8 L, Hct 26.1 L 03/27/22 11:09: POC Glucose 158 H 03/27/22 12:36: POC Glucose 156 H 03/27/22 17:00: POC Glucose 179 H 03/27/22 21:27: POC Glucose 138 H 03/28/22 06:27: POC Glucose 138 H Physical Exam Const alert and no apparent distress Resp normal respiratory effort and no retractions Cardio regular rate, regular rhythm, S1 normal heart sound and S2 normal heart sound GI normal to inspection, nondistended, normoactive bowel sounds and soft to palpation Assessment & Plan Assessment/Plan (1) ABLA (acute blood loss anemia): PLAN: Acute blood loss anemia Hemoglobin on presentation at [facility] ED was 8.1. Hemoglobin from the same hospital on 03/17/2022 was 13.1. Review of hospital record shows baseline hemoglobin of about 13. BUN at outside hospital on presentation was 32. Her BUN on 03/17/2022 at outside hospital was 39. Review of community records shows that this is above her baseline. Trend BMP H&H on arrival at our hospital was 7.1. Type and cross for 2 units of blood to be transfused 1 units ordered. Suspect upper GI bleed with abdominal pain. Protonix drip ordered. Gentle IV hydration. N.p.o. Gastroenterology consult. Hold home antiplatelets (aspirin and Plavix). Trend H&H. (2) GI bleed: PLAN: Patient had EGD today that showed grade D reflux esophagitis, medium size hiatal hernia and multiple oozing duodenal ulcers with a visible vessel. Rom ated with heater probe. GI recommending clear liquids and no aspirin, NSAIDs for 13 days. Continue with pantoprazole 40 twice daily for 8 weeks and sucralfate 1 g 4 times daily for 4 weeks. (3) Type 2 diabetes mellitus: QUALIFIERS: Diabetes mellitus complication status: with unspecified complications Diabetes mellitus intermediate insulin use: without oysterman use Qualified Code(s): E11.8 - Type 2 diabetes mellitus with unspecified complications PLAN: Diabetes mellitus Review of [facility] ED record shows hyperglycemia. Hold home metformin Monitor Accu-Cheks Correction scale insulin ordered. PLAN: Plan History of hypertension Blood pressure are soft. Hold home blood pressure medications. Trend blood pressure. DVT prophylaxis: SCDs ordered. Disposition: Patient to return to [place], but will need precertification beforehand. Therefore, discharge will not happen until the or , p resuming the patient is medically ready.
[2022-03-28 09:11] LABS: Absolute Lymphocyte Count 1.33 X10^3/uL (0.83-4.51); Absolute Neutrophil Count 4.2 X10^3/uL (2.0-7.7); Basophil# 0.01 X10^3/uL; Basophil% 0.2 % (0-1); Eosinophil# 0.13 X10^3/uL; Eosinophils% 2.1 % (0-5); Hemoglobin 10.4 g/dL (12.0-15.0); Lymphocyte # 1.33 X10^3/ul (0.83-4.51); Lymphocyte % 21.1 % (19-41); Mean Corp Hgb Conc 33.5 g/dL (32-36); Mean Corpuscular Hgb 31.4 pg (27.0-32.0); Mean Corpuscular Volume 93.7 fL (81-99); Mean Platelet Vol. 9.9 fl (6.2-12.0); Monocyte# 0.51 X10^3/uL; Monocyte% 8.1 % (0-10); NRBC Flagged by Analyzer 0 % (0-5); Neutrophil # 4.21 X10^3/uL (2.7-7.7); Neutrophil % 66.6 % (47-70); Platelet Count 142 K/mm3 (150-450); RBC Distribution Width CV 14.3 % (11.6-14.6); RBC Distribution Width SD 47.6 fl (35.1-43.9); Red Blood Count 3.31 M/mm3 (4.2-5.4); White Blood Count 6.3 K/mm3 (4.4-11.0)
[2022-03-28 09:36] LABS: Anion Gap 8 (5-15); BUN 11 mg/dL (7-18); BUN/Creat Ratio 21.7 RATIO (10-20); Chloride 107 mmol/L (98-107); Creatinine, Serum 0.51 mg/dL (0.55-1.02); EST Glomerular Filtration Rate 126 mL/min (>60); Est Glom Filt Rate - Afr Amer 152 mL/min (>60); Estimated Creatinine Clearance 41.33 ml/min; Glucose 173 mg/dL (74-106); Potassium 3.3 mmol/L (3.5-5.1); Sodium Level 139 mmol/L (136-145)
[2022-03-28] MEDS: Insulin Lispro 100 UNIT/ML INSULN.PEN SC ×3 (11:00→22:22)
[2022-03-28] MEDS: Sucralfate 1 GM Tablet PO ×2 (11:00→16:19)
[2022-03-28 11:26] LABS: Bedside Glucose 160 mg/dL (74-106)
[2022-03-28] MEDS: Potassium Chloride Oral Tablet 20 MEQ 40 MEQ PO (12:55)
[2022-03-28 17:01] LABS: Bedside Glucose 318 mg/dL (74-106)
[2022-03-29] VITALS (9 sets, daily range): BP systolic 105–123; BP diastolic 44–56; PULSE 66–81; RESP 16–18; TEMP 36.7–37.3; O2SAT 94–97
[2022-03-29 00:11] LABS: Bedside Glucose 282 mg/dL (74-106)
[2022-03-29] MEDS: MELATONIN 3 MG TABLET PO ×2 (00:39→21:14)
[2022-03-29 06:09] LABS: Absolute Lymphocyte Count 1.21 X10^3/uL (0.83-4.51); Absolute Neutrophil Count 3.3 X10^3/uL (2.0-7.7); Basophil# 0.01 X10^3/uL; Basophil% 0.2 % (0-1); Hematocrit 24.6 % (37-47); Hemoglobin 8.2 g/dL (12.0-15.0); Lymphocyte # 1.21 X10^3/ul (0.83-4.51); Lymphocyte % 23.8 % (19-41); Mean Corp Hgb Conc 33.3 g/dL (32-36); Mean Corpuscular Volume 96.1 fL (81-99); Mean Platelet Vol. 9.7 fl (6.2-12.0); Monocyte# 0.41 X10^3/uL; Monocyte% 8.1 % (0-10); NRBC Flagged by Analyzer 0.4 % (0-5); Neutrophil # 3.28 X10^3/uL (2.7-7.7); Neutrophil % 64.5 % (47-70); Platelet Count 133 K/mm3 (150-450); RBC Distribution Width CV 14.5 % (11.6-14.6); RBC Distribution Width SD 49.5 fl (35.1-43.9); Red Blood Count 2.56 M/mm3 (4.2-5.4); White Blood Count 5.1 K/mm3 (4.4-11.0)
[2022-03-29] MEDS: Insulin Lispro 100 UNIT/ML INSULN.PEN SC ×4 (06:42→21:14)
[2022-03-29] MEDS: Sucralfate 1 GM Tablet PO ×3 (06:42→16:19)
[2022-03-29 06:43] LABS: Anion Gap 7 (5-15); BUN 8 mg/dL (7-18); BUN/Creat Ratio 18.1 RATIO (10-20); Calcium,Total 7.5 mg/dL (8.5-10.1); Chloride 106 mmol/L (98-107); Creatinine, Serum 0.44 mg/dL (0.55-1.02); EST Glomerular Filtration Rate 147 mL/min (>60); Est Glom Filt Rate - Afr Amer 177 mL/min (>60); Estimated Creatinine Clearance 41.33 ml/min; Glucose 153 mg/dL (74-106); Potassium 3.6 mmol/L (3.5-5.1); Sodium Level 138 mmol/L (136-145)
[2022-03-29 07:15] LABS: Bedside Glucose 157 mg/dL (74-106)
[2022-03-29] MEDS: 0.9% Normal Saline 1,000 ML 75 ML IV ×2 (08:05→19:48)
--- NOTE | 2022-03-29 09:05 | PN_ITS ---
Subjective Subjective No signs of bleeding overnight. Objective Data Objective Data Vital Signs: Vital Signs Temp Pulse Resp BP Pulse Ox O2 Del Method 98.2 F 67 16 108/50 L 95 Room Air 03/29/22 07:53 03/29/22 07:53 03/29/22 07:53 03/29/22 07:53 03/29/22 07:53 03/29/22 07:57 Oxygen Delivery Method Room Air Weight: 191 lb 2.252 oz Body Mass Index (BMI) 32.8 Intake & Output: Intake and Output for Last 24 Hours 03/27/22 03/28/22 03/29/22 23:59 23:59 23:59 Intake Total 1763.16 / 1763.16 2358.75 / 2358.75 1006.25 / 1006.25 Output Total 0 / 0 700 / 1150 550 / 550 Balance 1763.16 / 1763.16 1658.75 / 1208.75 456.25 / 456.25 Medical Nutrition Assessment Dietitian: Malnutrition Criteria Met Start: 03/27/22 15:11 Freq: Status: Active Protocol: Document 03/27/22 15:11 AG (Rec: 03/27/22 15:11 [id number]) Nutrition Malnutrition Evidence of Malnutrition Exists Yes Malnutrition (severe): Acute Illness/Injury Evidenced By Suboptimal Energy Intake ( Severe),Weight Loss (Severe) Clinical Problem Acute Disease or Injury Related Malnutrition Etiology severe, acute malnutrition r/t GI dysfunction Signs/Symptoms as evidenced by unintentional wt loss of 10.7#/5% x 9 days, estimated PO intake meeting ~ 50% of estimated energy needs x 1 week Status Active Problem Recommendation Dietitian Recommendations/Changes recommend advance diet as tolerated to transitional; will add magic cup BID for additional calories/protein if consumed given acute malnutrition Lab / Micro Data Result Diagrams: 03/29/22 05:41 03/29/22 05:41 Labs: Laboratory Results - last 24 hr 03/28/22 09:01: WBC 6.3, RBC 3.31 L, Hgb 10.4 L, Hct 31.0 L, MCV 93.7, MCH 31.4, MCHC 33.5, RDW Std Deviation 47.6 H, RDW Coeff of Carrie 14.3, Plt Count 142 L, MPV 9.9, Immature Gran % (Auto) 1.900 H, Neut % (Auto) 66.6, Lymph % (Auto) 21.1, [place] % (Auto) 8.1, Eos % (Auto) 2.1, Baso % (Auto) 0.2, Absolute Neuts (auto) 4.2, Absolute Lymphs (auto) 1.33, Nucleated RBC % 0 03/28/22 09:01: Sodium 139, Potassium 3.3 L, Chloride 107, Carbon Dioxide 24.0, Anion Gap 8, BUN 11, Creatinine 0.51 L, Estim Creat Clear Calc 41.33, Est GFR (MDRD) Af Amer 152, Est GFR (MDRD) Non-Af 126, BUN/Creatinine Ratio 21.7 H, Glucose 173 H, Calcium 8.0 L 03/28/22 10:59: POC Glucose 160 H 03/28/22 16:15: POC Glucose 318 H 03/28/22 22:20: POC Glucose 282 H 03/29/22 05:41: WBC 5.1, RBC 2.56 L, Hgb 8.2 L, Hct 24.6 L, MCV 96.1, MCH 32.0, MCHC 33.3, RDW Std Deviation 49.5 H, RDW Coeff of Carrie 14.5, Plt Count 133 L, MPV 9.7, Immature Gran % (Auto) 1.400 H, Neut % (Auto) 64.5, Lymph % (Auto) 23.8, [place] % (Auto) 8.1, Eos % (Auto) 2.0, Baso % (Auto) 0.2, Absolute Neuts (auto) 3.3, Absolute Lymphs (auto) 1.21, Nucleated RBC % 0.4 03/29/22 05:41: Sodium 138, Potassium 3.6, Chloride 106, Carbon Dioxide 25.0, Anion Gap 7, BUN 8, Creatinine 0.44 L, Estim Creat Clear Calc 41.33, Est GFR (MDRD) Af Amer 177, Est GFR (MDRD) Non-Af 147, BUN/Creatinine Ratio 18.1, Glucose 153 H, Calcium 7.5 L 03/29/22 06:39: POC Glucose 157 H Physical Exam Const alert and no apparent distress Resp normal respiratory effort and no retractions Cardio regular rate, regular rhythm, S1 normal heart sound and S2 normal heart sound GI normal to inspection, nondistended, normoactive bowel sounds and soft to palpat ion Assessment & Plan Assessment/Plan (1) GI bleed: PLAN: Patient underwent an upper endoscopy and was discovered to have huge ulcers in the duodenum. They were treated endoscopically. However her hemoglobin has dropped 2g overnight. There were no signs of bleeding overnight. If her hemoglobin continues to drop then she will need a colonoscopy and repeat EGD to make sure that the ulcers have not started rebleeding. (2) ABLA (acute blood loss anemia): PLAN: I would recheck her hemoglobin later today around 3:00 pm and if that is less than 8 I would transfuse 1 unit of packed red blood cells. Charges/Coding Visit Charges Inpatient E&M: 15390 Subs Hosp L2
--- NOTE | 2022-03-29 09:33 | PN.HOSP_ITS ---
Subjective Subjective States that she wants to go home and does not want to re turn to [facility]. States that her family is ready to take her home. Objective Data Objective Data Vital Signs: Vital Signs Temp Pulse Resp BP Pulse Ox O2 Del Method 36.8 C 67 16 108/50 L 95 Room Air 03/29/22 07:53 03/29/22 07:53 03/29/22 07:53 03/29/22 07:53 03/29/22 07:53 03/29/22 07:57 Oxygen Delivery Method Room Air Weight: 86.7 kg Body Mass Index (BMI) 32.8 Intake & Output: Intake and Output for Last 24 Hours 03/27/22 03/28/22 03/29/22 23:59 23:59 23:59 Intake Total 1763.16 / 1763.16 2358.75 / 2358.75 1006.25 / 1006.25 Output Total 0 / 0 700 / 1150 550 / 550 Balance 1763.16 / 1763.16 1658.75 / 1208.75 456.25 / 456.25 Medical Nutrition Assessment Dietitian: Malnutrition Criteria Met Start: 03/27/22 15:11 Freq: Status: Active Protocol: Document 03/27/22 15:11 AG (Rec: 03/27/22 15:11 [id number]) Nutrition Malnutrition Evidence of Malnutrition Exists Yes Malnutrition (severe): Acute Illness/Injury Evidenced By Suboptimal Energy Intake ( Severe),Weight Loss (Severe) Clinical Problem Acute Disease or Injury Related Malnutrition Etiology severe, acute malnutrition r/t GI dysfunction Signs/Symptoms as evidenced by unintentional wt loss of 10.7#/5% x 9 days, estimated PO intake meeting ~ 50% of estimated energy needs x 1 week Status Active Problem Recommendation Dietitian Recommendations/Changes recommend advance diet as tolerated to transitional; will add magic cup BID for additional calories/protein if consumed given acute malnutrition Lab / Micro Data Result Diagrams: 03/29/22 10:46 03/29/22 05:41 Labs: Laboratory Results - last 24 hr 03/28/22 09:01: Sodium 139, Potassium 3.3 L, Chloride 107, Carbon Dioxide 24.0, Anion Gap 8, BUN 11, Creatinine 0.51 L, Estim Creat Clear Calc 41.33, Est GFR (MDRD) Af Amer 152, Est GFR (MDRD) Non-Af 126, BUN/Creatinine Ratio 21.7 H, Glucose 173 H, Calcium 8.0 L 03/28/22 10:59: POC Glucose 160 H 03/28/22 16:15: POC Glucose 318 H 03/28/22 22:20: POC Glucose 282 H 03/29/22 05:41: WBC 5.1, RBC 2.56 L, Hgb 8.2 L, Hct 24.6 L, MCV 96.1, MCH 32.0, MCHC 33.3, RDW Std Deviation 49.5 H, RDW Coeff of Carrie 14.5, Plt Count 133 L, MPV 9.7, Immature Gran % (Auto) 1.400 H, Neut % (Auto) 64.5, Lymph % (Auto) 23.8, [place] % (Auto) 8.1, Eos % (Auto) 2.0, Baso % (Auto) 0.2, Absolute Neuts (auto) 3.3, Absolute Lymphs (auto) 1.21, Nucleated RBC % 0.4 03/29/22 05:41: Sodium 138, Potassium 3.6, Chloride 106, Carbon Dioxide 25.0, Anion Gap 7, BUN 8, Creatinine 0.44 L, Estim Creat Clear Calc 41.33, Est GFR (MDRD) Af Amer 177, Est GFR (MDRD) Non-Af 147, BUN/Creatinine Ratio 18.1, Glucose 153 H, Calcium 7.5 L 03/29/22 06:39: POC Glucose 157 H Physical Exam Const alert and no apparent distress HEENT head/scalp atraumatic Resp normal respiratory effort, no retractions, no use of accessory muscles and clear to auscultation bilaterally Cardio regular rate, regular rhythm, S1 normal heart sound and S2 normal heart sound GI normal to inspection, nondistended, normoactive bowel sounds Extremity normal to inspection Psych affect normal Assessment & Plan Assessment/Plan (1) ABLA (acute blood loss anemia): PLAN: Acute blood loss anemia Hemoglobin on presentation at [facility] ED was 8.1. Hemoglobin from the same hospital on 03/17/2022 was 13.1. Review of hospital record shows baseline hemoglobin of about 13. BUN at outside hospital on presentation was 32. Her BUN on 03/17/2022 at outside hospital was 39. Review of community records shows that this is above her baseline. Trend BMP H&H on arrival at our hospital was 7.1. Type and cross for 2 units of blood to be transfused 1 units ordered. 2/2 GI bleed Hg down to 8.2 today, recheck (2) GI bleed: PLAN: Patient had EGD today that showed grade D reflux esophagitis, medium size hiatal hernia and multiple oozing duodenal ulcers with a visible vessel. Treated with heater probe. GI recommending clear liquids and no aspirin, NSAIDs for 13 days. Continue with pantoprazole 40 twice daily for 8 weeks and sucralfate 1 g 4 times daily for 4 weeks. (3) Type 2 diabetes mellitus: QUALIFIERS: Diabetes mellitus complication status: with unspecifie d complications Diabetes mellitus skilled nursing insulin use: without skilled nursing use Qualified Code(s): E11.8 - Type 2 diabetes mellitus with unspecified complications PLAN: Diabetes mellitus Review of [facility] ED record shows hyperglycemia. Hold home metformin Monitor Accu-Cheks Correction scale insulin ordered. PLAN: Plan History of hypertension Blood pressure are soft. Hold home blood pressure medications. Trend blood pressure. DVT prophylaxis: SCDs ordered. Disposition: Original plan was for the patient to return to [place], but will need precertification beforehand. Therefore, discharge will not happen until the or , presuming the patient is medically ready. Patient's tell me today that her family can take her at home. I asked her how but she cannot el aborate saying that she would be ready. Patient does endorse that it takes 2 people just to get her into a chair. I asked her how she would do that at home when there would only be 1 person at home which would be her daughter. She cannot elaborate. I told the patient to talk with her family. Does not seem that the patient has things set up at home to be able to accommodate her. Will feel the family would be able to accommodate her, least at this point time. Patient states that she does not want to go to court as she was dragged. She denies being abused nor mistreated but not treated right. Case management to assess on the . Charges/Coding Visit Charges Inpatient E&M: 39173 Subs Hosp L2
[2022-03-29 10:57] LABS: Absolute Lymphocyte Count 1.23 X10^3/uL (0.83-4.51); Absolute Neutrophil Count 3.8 X10^3/uL (2.0-7.7); Basophil# 0.01 X10^3/uL; Basophil% 0.2 % (0-1); Eosinophil# 0.09 X10^3/uL; Eosinophils% 1.6 % (0-5); Hematocrit 28.9 % (37-47); Hemoglobin 9.4 g/dL (12.0-15.0); Lymphocyte # 1.23 X10^3/ul (0.83-4.51); Lymphocyte % 21.9 % (19-41); Mean Corp Hgb Conc 32.5 g/dL (32-36); Mean Corpuscular Hgb 31.3 pg (27.0-32.0); Mean Corpuscular Volume 96.3 fL (81-99); Mean Platelet Vol. 9.6 fl (6.2-12.0); Monocyte# 0.43 X10^3/uL; Monocyte% 7.7 % (0-10); NRBC Flagged by Analyzer 0 % (0-5); Neutrophil # 3.76 X10^3/uL (2.7-7.7); Platelet Count 144 K/mm3 (150-450); RBC Distribution Width CV 14.6 % (11.6-14.6); RBC Distribution Width SD 49.4 fl (35.1-43.9); White Blood Count 5.6 K/mm3 (4.4-11.0)
[2022-03-29 11:40] LABS: Bedside Glucose 201 mg/dL (74-106)
[2022-03-29 17:20] LABS: Bedside Glucose 254 mg/dL (74-106)
[2022-03-29 22:00] LABS: Bedside Glucose 294 mg/dL (74-106)
[2022-03-30] VITALS (7 sets, daily range): BP systolic 127–134; BP diastolic 56–63; PULSE 69–81; RESP 16–18; TEMP 36.4–37.1; O2SAT 95–98
[2022-03-30] MEDS: Insulin Lispro 100 UNIT/ML INSULN.PEN SC ×4 (06:36→21:00)
[2022-03-30] MEDS: Sucralfate 1 GM Tablet PO ×3 (06:36→16:30)
[2022-03-30 06:42] LABS: Absolute Lymphocyte Count 1.28 X10^3/uL (0.83-4.51); Absolute Neutrophil Count 2.8 X10^3/uL (2.0-7.7); Basophil# 0.02 X10^3/uL; Basophil% 0.4 % (0-1); Eosinophil# 0.09 X10^3/uL; Hematocrit 26.2 % (37-47); Hemoglobin 8.4 g/dL (12.0-15.0); Lymphocyte # 1.28 X10^3/ul (0.83-4.51); Lymphocyte % 27.8 % (19-41); Mean Corp Hgb Conc 32.1 g/dL (32-36); Mean Corpuscular Volume 96.7 fL (81-99); Mean Platelet Vol. 9.8 fl (6.2-12.0); Monocyte# 0.38 X10^3/uL; Monocyte% 8.2 % (0-10); NRBC Flagged by Analyzer 0.4 % (0-5); Neutrophil # 2.76 X10^3/uL (2.7-7.7); Neutrophil % 59.9 % (47-70); Platelet Count 143 K/mm3 (150-450); RBC Distribution Width SD 50.4 fl (35.1-43.9); Red Blood Count 2.71 M/mm3 (4.2-5.4); White Blood Count 4.6 K/mm3 (4.4-11.0)
[2022-03-30 07:06] LABS: Bedside Glucose 162 mg/dL (74-106)
[2022-03-30 07:10] LABS: Anion Gap 7 (5-15); BUN 7 mg/dL (7-18); BUN/Creat Ratio 17.3 RATIO (10-20); Calcium,Total 7.8 mg/dL (8.5-10.1); Chloride 105 mmol/L (98-107); EST Glomerular Filtration Rate 162 mL/min (>60); Est Glom Filt Rate - Afr Amer 197 mL/min (>60); Estimated Creatinine Clearance 41.33 ml/min; Glucose 178 mg/dL (74-106); Potassium 3.6 mmol/L (3.5-5.1); Sodium Level 138 mmol/L (136-145)
--- NOTE | 2022-03-30 08:07 | PN.HOSP_ITS ---
Objective Data Objective Data Vital Signs: Vital Signs Temp Pulse Resp BP Pulse Ox O2 Del Method 36.4 C L 73 18 127/56 H 98 Room Air 03/30/22 03:00 03/30/22 07:00 03/30/22 03:00 03/30/22 03:00 03/30/22 03:00 03/30/22 03:33 Oxygen Delivery Method Room Air Weight: 86.7 kg Body Mass Index (BMI) 32.8 Intake & Output: Intake and Output for Last 24 Hours 03/28/22 03/29/22 03/30/22 23:59 23:59 23:59 Intake Total 2358.75 / 2358.75 3165.00 / 3165.00 92.5 / 92.5 Output Total 700 / 1150 1999 / 1999 1100 / 1100 Balance 1658.75 / 1208.75 1165.00 / 1165.00 -1007.5 / -1007.5 Medical Nutrition Assessment Dietitian: Malnutrition Criteria Met Start: 03/27/22 15:11 Freq: Status: Active Protocol: Document 03/27/22 15:11 (Rec: 03/27/22 15:11 [id number]) Nutrition Malnutrition Evidence of Malnutrition Exists Yes Malnutrition (severe): Acute Illness/Injury Evidenced By Suboptimal Energy Intake ( Severe),Weight Loss (Severe) Clinical Problem Acute Disease or Injury Related Malnutrition Etiology severe, acute malnutrition r/t GI dysfunction Signs/Symptoms as evidenced by unintentional wt loss of 10.7#/5% x 9 days, estimated PO intake meeting ~ 50% of estimated energy needs x 1 week Status Active Problem Recommendation Dietitian Recommendations/Changes recommend advance diet as tolerated to transitional; will add magic cup BID for additional calories/protein if consumed given acute malnutrition Lab / Micro Data Result Diagrams: 03/30/22 05:35 03/30/22 05:35 Labs: Laboratory Results - last 24 hr 03/27/22 04:37: Crossmatch See Detail 03/29/22 10:46: WBC 5.6, RBC 3.00 L, Hgb 9.4 L, Hct 28.9 L, MCV 96.3, MCH 31.3, MCHC 32.5, RDW Std Deviation 49.4 H, RDW Coeff of Carrie 14.6, Plt Count 144 L, MPV 9.6, Immature Gran % (Auto) 1.600 H, Neut % (Auto) 67.0, Lymph % (Auto) 21.9, [place] % (Auto) 7.7, Eos % (Auto) 1.6, Baso % (Auto) 0.2, Absolute Neuts (auto) 3.8, Absolute Lymphs (auto) 1.23, Nucleated RBC % 0 03/29/22 11:14: POC Glucose 201 H 03/29/22 16:16: POC Glucose 254 H 03/29/22 21:07: POC Glucose 294 H 03/30/22 05:35: WBC 4.6, RBC 2.71 L, Hgb 8.4 L, Hct 26.2 L, MCV 96.7, MCH 31.0, MCHC 32.1, RDW Std Deviation 50.4 H, RDW Coeff of Carrie 15.0 H, Plt Count 143 L, MPV 9.8, Immature Gran % (Auto) 1.700 H, Neut % (Auto) 59.9, Lymph % (Auto) 27.8, [place] % (Auto) 8.2, Eos % (Auto) 2.0, Baso % (Auto) 0.4, Absolute Neuts (auto) 2.8, Absolute Lymphs (auto) 1.28, Nucleated RBC % 0.4 03/30/22 05:35: Sodium 138, Potassium 3.6, Chloride 105, Carbon Dioxide 26.0, Anion Gap 7, BUN 7, Creatinine 0.40 L, Estim Creat Clear Calc 41.33, Est GFR (MDRD) Af Amer 197, Est GFR (MDRD) Non-Af 162, BUN/Creatinine Ratio 17.3, Glucose 178 H, Calcium 7.8 L 03/30/22 06:33: POC Glucose 162 H Physical Exam Const alert and no apparent distress Resp normal respiratory effort, no retractions and no use of accessory muscles Cardio regular rate, regular rhythm, S1 normal heart sound and S2 normal heart sound GI normal to inspection, nondistended, normoactive bowel sounds Assessment & Plan Assessment/Plan (1) ABLA (acute blood loss anemia): PLAN: Acute blood loss anemia Hemoglobin on presentation at [facility] ED was 8.1. Hemoglobin from the same hospital on 03/17/2022 was 13.1. Review of hospital record shows baseline hemoglobin of about 13. BUN at outside hospital on presentation was 32. Her BUN on 03/17/2022 at outside hospital was 39. Review of community records shows that this is above her baseline. Trend BMP H&H on arrival at our hospital was 7.1. Type and cross for 2 units of blood to be transfused 1 units ordered. 2/2 GI bleed Hemoglobin has been variable. Monitor. (2) GI bleed: PLAN: Patient had EGD today that showed grade D reflux esophagitis, medium size hiatal hernia and multiple oozing duodenal ulcers with a visible vessel. Treated with heater probe. GI recommending clear liquids and no aspirin, NSAIDs for 13 days. Continue with pantoprazole 40 twice daily for 8 weeks and sucralfate 1 g 4 times daily for 4 weeks. (3) Type 2 diabetes mellitus: QUALIFIERS: Diabetes mellitus complication status: with unspecified complications Diabetes mellitus correction insulin use: without terminal supervisor use Qualified Code(s): E11.8 - Type 2 diabetes mellitus with unspecified complications PLAN: Diabetes mellitus Review of [facility] ED record shows hyperglycemia. Hold home metformin Monitor Accu-Cheks Correction scale insulin ordered. PLAN: Plan History of hypertension Blood pressure are soft. Hold home blood pressure medications. Trend blood pressure. DVT prophylaxis: SCDs ordered. Disposition: Original plan was for the patient to return to [place], but will need precertification beforehand. Therefore, discharge will not happen until the or , presuming the patient is medically ready. Patient's tell me today that her family can take her at home. I asked her how but she cannot elaborate saying that she would be ready. Patient does endorse that it takes 2 people just to get her into a chair. I asked her how she would do that at home when there would only be 1 person at home which would be her daughter. She cannot elaborate. I told the patient to talk with her family. Does not seem that the patient has things set up at home to be able to accommodate her. Will feel the family would be able to accommodate her, least at this point time. Patient states that she does not want to go to court as she was dragged. She denies being abused nor mistreated but not treated right. Case management to assess on the . EDIL CHAPPELL. Plan is for pt to back [place]. Charges/Coding Visit Charges Inpatient E&M: 99203 Subs Hosp L2
--- NOTE | 2022-03-30 08:37 | CASEMGMT ---
Discharge Darkroom Worker Danielle soliz sent updates to [facility] and asked [facility] to start pre-cert on patient. Plan: [facility], Waiting pre-cert Danielle Beal Discharge Darkroom Worker
[2022-03-30] MEDS: 0.9% Saline Lock 10 ML Syringe IV (09:28)
[2022-03-30] MEDS: 0.9% Normal Saline 1,000 ML 75 ML IV (09:28)
--- NOTE | 2022-03-30 10:30 | CASEMGMT ---
Physician informed SAM that patient wants to go home and her family can care for her. SAM called patient's daughter Nanci. Nanci said she cannot care for patient at home as she requires too much assistance. Nanci said patient has to go back to [place]. SAM asked Nanci if patient has applied for Medicaid and Nanci said no. SAM asked if patient is paying anything at [place] or if she is still covered under her insurance. Nanci did not know this information. SAM e-mailed Sandie at [facility] regarding this question. SAM told Nanci SW will let her know when patient returns to [place]. Annie Serra HEAD OF PRODUCT LYNETTE
--- NOTE | 2022-03-30 10:56 | CASEMGMT ---
SW went to patient's room to talk with her about residential. SAM introduced self and role at [facility]. SW let patient know SW spoke with her daughter and she is not able to care for her at home. SW explained patient is limited on which nursing homes she can go to due to her insurance. SW explained to patient that the only other 2 options locally would be [place] or [facility] and her daughter did not want either of those facilities. SW told patient her daughter is working to switch her insurance so she would have more options. Patient was not happy, but verbalized understanding and agreed with plan. Plan: d/c back to [facility] pending insurance approval. Annie Serra SECOND HAND LYNETTE
[2022-03-30 11:35] LABS: Bedside Glucose 186 mg/dL (74-106)
[2022-03-30 16:55] LABS: Bedside Glucose 171 mg/dL (74-106)
--- NOTE | 2022-03-30 17:05 | PCM.PROGNOTE ---
Subjective Subjective Patient does not have any signs or symptoms of GI bleed. She denies abdominal pain and is tolerating a diet. She was on octreotide and PPI drip. That has been DC'd. She is on life now Carafate therapy. Objective Data Objective Data Vital Signs: Vital Signs Temp Pulse Resp BP Pulse Ox O2 Del Method 97.7 F L 81 16 134/60 H 98 Room Air 03/30/22 15:00 03/30/22 15:00 03/30/22 15:00 03/30/22 15:00 03/30/22 15:00 03/30/22 15:00 Oxygen Delivery Method Room Air Weight: 191 lb 2.252 oz Body Mass Index (BMI) 32.8 Intake & Output: Intake and Output for Last 24 Hours 03/28/22 03/29/22 03/30/22 23:59 23:59 23:59 Intake Total 2358.75 / 2358.75 3165.00 / 3165.00 1392.5 / 1392.5 Output Total 700 / 1150 1999 / 1999 2300 / 2300 Balance 1658.75 / 1208.75 1165.00 / 1165.00 -907.5 / -907.5 Medical Nutrition Assessment Dietitian: Malnutrition Criteria Met Start: 03/27/22 15:11 Freq: Status: Active Protocol: Document 03/30/22 12:07 RMA (Rec: 03/30/22 12:07 RMA [id number]) Nutrition Malnutrition Evidence of Malnutrition Exists Yes Malnutrition (severe): Acute Illness/Injury Evidenced By Suboptimal Energy Intake ( Severe),Weight Loss (Severe) Clinical Problem Acute Disease or Injury Related Malnutrition Etiology severe, acute malnutrition r/t GI dysfunction Signs/Symptoms as evidenced by unintentional wt loss of 10.7#/5% x 9 days, estimated PO intake meeting ~ 50% of estimated energy needs x 1 week Status Active Problem Recommendation Dietitian Recommendations/Changes Recommend advance diet as tolerated to transitional with goal of carbohydrate- controlled diet. Will d/c magic cup and offer 120 ml glucerna shake TID w/ meals. Adjust ONS as needed. Lab / Micro Data Result Diagrams: 03/30/22 05:35 03/30/22 05:35 Labs: Laboratory Results - last 24 hr 03/27/22 04:37: Crossmatch See Detail 03/29/22 16:16: POC Glucose 254 H 03/29/22 21:07: POC Glucose 294 H 03/30/22 05:35: WBC 4.6, RBC 2.71 L, Hgb 8.4 L, Hct 26.2 L, MCV 96.7, MCH 31.0, MCHC 32.1, RDW Std Deviation 50.4 H, RDW Coeff of Carrie 15.0 H, Plt Count 143 L, MPV 9.8, Immature Gran % (Auto) 1.700 H, Neut % (Auto) 59.9, Lymph % (Auto) 27.8, [place] % (Auto) 8.2, Eos % (Auto) 2.0, Baso % (Auto) 0.4, Absolute Neuts (auto) 2.8, Absolute Lymphs (auto) 1.28, Nucleated RBC % 0.4 03/30/22 05:35: Sodium 138, Potassium 3.6, Chloride 105, Carbon Dioxide 26.0, Anion Gap 7, BUN 7, Creatinine 0.40 L, Estim Creat Clear Calc 41.33, Est GFR (MDRD) Af Amer 197, Est GFR (MDRD) Non-Af 162, BUN/Creatinine Ratio 17.3, Glucose 178 H, Calcium 7.8 L 03/30/22 06:33: POC Glucose 162 H 03/30/22 11:10: POC Glucose 186 H 03/30/22 16:29: POC Glucose 171 H Physical Exam Const alert and no apparent distress Resp normal respiratory effort, no retractions and no use of accessory muscles Cardio regular rate, regular rhythm, S1 normal heart sound and S2 normal heart sound GI normal to inspection, nondistended, normoactive bowel sounds Assessment & Plan Assessment/Plan (1) GI bleed: PLAN: Acute GI bleed secondary to multiple ulcers in the duodenum that was close to perforation. This is likely secondary to medicines in the setting of lack of movement and the patient and possible underlying gastroparesis secondary to diabetes and medicines. Her dementia medicines do cause gastroparesis which can lead to poor digestion and absorption of anticoagulants and antiplatelet therapy. Recommend PPI therapy twice daily and Carafate therapies 4 times daily as previously ordered. Patient will need repeat upper endoscopy in approximately 4 to 6 weeks. Charges/Coding Visit Charges Inpatient E&M: 30840 Subs Hosp L2
[2022-03-30 21:46] LABS: Bedside Glucose 188 mg/dL (74-106)
[2022-03-31] VITALS (8 sets, daily range): BP systolic 115–130; BP diastolic 53–61; PULSE 72–85; RESP 16; TEMP 36.2–36.9; O2SAT 94–96
[2022-03-31 06:24] LABS: Absolute Lymphocyte Count 1.24 X10^3/uL (0.83-4.51); Absolute Neutrophil Count 2.2 X10^3/uL (2.0-7.7); Basophil# 0.01 X10^3/uL; Basophil% 0.3 % (0-1); Eosinophils% 2.5 % (0-5); Hematocrit 25.5 % (37-47); Hemoglobin 8.1 g/dL (12.0-15.0); Lymphocyte # 1.24 X10^3/ul (0.83-4.51); Lymphocyte % 31.6 % (19-41); Mean Corp Hgb Conc 31.8 g/dL (32-36); Mean Corpuscular Hgb 30.8 pg (27.0-32.0); Mean Platelet Vol. 9.6 fl (6.2-12.0); Monocyte# 0.32 X10^3/uL; Monocyte% 8.1 % (0-10); NRBC Flagged by Analyzer 0 % (0-5); Neutrophil # 2.22 X10^3/uL (2.7-7.7); Neutrophil % 56.5 % (47-70); Platelet Count 143 K/mm3 (150-450); RBC Distribution Width CV 15.1 % (11.6-14.6); RBC Distribution Width SD 51.3 fl (35.1-43.9); Red Blood Count 2.63 M/mm3 (4.2-5.4); White Blood Count 3.9 K/mm3 (4.4-11.0)
[2022-03-31] MEDS: Insulin Lispro 100 UNIT/ML INSULN.PEN SC ×4 (06:38→21:08)
[2022-03-31] MEDS: Sucralfate 1 GM Tablet PO ×3 (06:38→16:23)
[2022-03-31 07:01] LABS: Bedside Glucose 170 mg/dL (74-106)
--- NOTE | 2022-03-31 08:08 | PN.HOSP_ITS ---
Subjective Subjective Anxious to be discharged. Objective Data Objective Data Vital Signs: Vital Signs Temp Pulse Resp BP Pulse Ox O2 Del Method 36.2 C L 76 16 130/53 H 94 Room Air 03/31/22 03:01 03/31/22 07:00 03/31/22 03:01 03/31/22 03:01 03/31/22 03:01 03/31/22 03:19 Oxygen Delivery Method Room Air Weight: 86.7 kg Body Mass Index (BMI) 32.8 Intake & Output: Intake and Output for Last 24 Hours 03/29/22 03/30/22 03/31/22 23:59 23:59 23:59 Intake Total 3165.00 / 3165.00 3250.17 / 3250.17 96.33 / 96.33 Output Total 1999 3650 / 3650 700 / 700 Balance 1165.00 / 1165.00 -399.83 / -399.83 -603.67 / -603.67 Medical Nutrition Assessment Dietitian: Malnutrition Criteria Met Start: 03/27/22 15:11 Freq: Status: Active Protocol: Document 03/30/22 12:07 RMA (Rec: 03/30/22 12:07 RMA [id number]) Nutrition Malnutrition Evidence of Malnutrition Exists Yes Malnutrition (severe): Acute Illness/Injury Evidenced By Suboptimal Energy Intake ( Severe),Weight Loss (Severe) Clinical Problem Acute Disease or Injury Related Malnutrition Etiology severe, acute malnutrition r/t GI dysfunction Signs/Symptoms as evidenced by unintentional wt loss of 10.7#/5% x 9 days, estimated PO intake meeting ~ 50% of estimated energy needs x 1 week Status Active Problem Recommendation Dietitian Recommendations/Changes Recommend advance diet as tolerated to transitional with goal of carbohydrate- controlled diet. Will d/c magic cup and offer 120 ml glucerna shake TID w/ meals. Adjust ONS as needed. Lab / Micro Data Result Diagrams: 03/31/22 05:43 03/30/22 05:35 Labs: Laboratory Results - last 24 hr 03/30/22 11:10: POC Glucose 186 H 03/30/22 16:29: POC Glucose 171 H 03/30/22 20:58: POC Glucose 188 H 03/31/22 05:43: WBC 3.9 L, RBC 2.63 L, Hgb 8.1 L, Hct 25.5 L, MCV 97.0, MCH 30.8, MCHC 31.8 L, RDW Std Deviation 51.3 H, RDW Coeff of Carrie 15.1 H, Plt Count 143 L, MPV 9.6, Immature Gran % (Auto) 1.000 H, Neut % (Auto) 56.5, Lymph % (Auto) 31.6, [place] % (Auto) 8.1, Eos % (Auto) 2.5, Baso % (Auto) 0.3, Absolute Neuts (auto) 2.2, Absolute Lymphs (auto) 1.24, Nucleated RBC % 0 03/31/22 06:37: POC Glucose 170 H Physical Exam Const alert and no apparent distress Resp normal respiratory effort, no retractions, no use of accessory muscles and clear to auscultation bilaterally Cardio regular rate, regular rhythm, S1 normal heart sound and S2 normal heart sound GI normal to inspection, nondistended, normoactive bowel sounds, soft to palpation, non-tender and non-distended Extremity normal to inspection Assessment & Plan Assessment/Plan (1) ABLA (acute blood loss anemia): PLAN: Acute blood loss anemia Hemoglobin on presentation at [facility] ED was 8.1. Hemoglobin from the same hospital on 03/17/2022 was 13.1. Review of hospital record shows baseline hemoglobin of about 13. BUN at outside hospital on presentation was 32. Her BUN on 03/17/2022 at outside hospital was 39. Review of community records shows that this is above her baseline. Trend BMP H&H on arrival at our hospital was 7.1. Type and cross for 2 units of blood to be transfused 1 units ordered. 2/2 GI bleed Hemoglobin has been stable (2) GI bleed: PLAN: Patient had EGD today that showed grade D reflux esophagitis, medium size hiatal hernia and multiple oozing duodenal ulcers with a visible vessel. Treated with heater probe. GI recommending clear liquids and no aspirin, NSAIDs for 13 days. Continue with pantoprazole 40 twice daily for 8 weeks and sucralfate 1 g 4 times daily for 4 weeks. (3) Type 2 diabetes mellitus: QUALIFIERS: Diabetes mellitus complication status: with unspecified complications Diabetes mellitus intermediate accountant insulin use: without chcf use Qualified Code(s): E11.8 - Type 2 diabetes mellitus with unspecified complications PLAN: Diabetes mellitus Review of [facility] ED record shows hyperglycemia. Hold home metformin Monitor Accu-Cheks Correction scale insulin ordered. PLAN: Plan History of hypertension Blood pressure are soft. Hold home blood pressure medications. Trend blood pressure. DVT prophylaxis: SCDs ordered. Disposition: Original plan was for the patient to return to [place], but will need precertification beforehand. Therefore, discharge will not happen until the or , presuming the patient is medically ready. Patient's tell me today that her family can take her at home. I asked her how but she cannot elaborate saying that she would be ready. Patient does endorse that it takes 2 people just to get her into a chair. I asked her how she would do that at home when there would only be 1 person at home which would be her daughter. She cannot elaborate. I told the patient to talk with her family. Does not seem that the patient has things set up at home to be able to accommodate her. Will feel the family would be able to accommodate her, least at this point time. Patient states that she does not want to go to court as she was dragged. She denies being abused nor mistreated but not treated right. Case management to assess on the . EDIL CM. Plan is for pt to back [facility] pending insurance authorization. Charges/Coding Visit Charges Inpatient E&M: 22240 Subs Hosp L2
--- NOTE | 2022-03-31 10:27 | PCM.TXEXTCAR ---
Diet Diet Order/Speech Therapy: 03/27/22 12:34 Diet: Full Liquid Type of Dietary Supplement:: Glucerna Shake Is pt able to select menu?: No Diet Comments: 120ml glucerna shake TID w/ meals Routine Orders/Code Status Code Status: DNRCC-A (no intubation) Therapies Physical Therapy: Eval and Treat Occupational Therapy: Eval and Treat Problem/Diagnosis (1) ABLA (acute blood loss anemia): Status: Acute Code(s): D62 - Acute posthemorrhagic anemia Plan: Acute blood loss anemia Hemoglobin on presentation at [facility] ED was 8.1. Hemoglobin from the same hospital on 03/17/2022 was 13.1. Review of hospital record shows baseline hemoglobin of about 13. BUN at outside hospital on presentation was 32. Her BUN on 03/17/2022 at outside hospital was 39. Review of community records shows that this is above her baseline. Trend BMP H&H on arrival at our hospital was 7.1. Type and cross for 2 units of blood to be transfused 1 units ordered. 2/2 GI bleed Hemoglobin has been stable (2) GI bleed: Status: Acute Code(s): K92.2 - Gastrointestinal hemorrhage, unspecified Plan: Patient had EGD today that showed grade D reflux esophagitis, medium size hiatal hernia and multiple oozing duodenal ulcers with a visible vessel. Treated with heater probe. GI recommending clear liquids and no aspirin, NSAIDs for 13 days. Continue with pantoprazole 40 twice daily for 8 weeks and sucralfate 1 g 4 times daily for 4 weeks. (3) Type 2 diabetes mellitus: Status: Chronic Code(s): E11.9 - Type 2 diabetes mellitus without complications Plan: Diabetes mellitus Review of [facility] ED record shows hyperglycemia. Hold home metformin Monitor Accu-Cheks Correction scale insulin ordered. Plan History of hypertension Blood pressure are soft. Hold home blood pressure medications. Trend blood pressure. DVT prophylaxis: SCDs ordered. Disposition: Original plan was for the patient to return to [place], but will need precertification beforehand. Therefore, discharge will not happen until the or , presuming the patient is medically ready. Patient's tell me today that her family can take her at home. I asked her how but she cannot elaborate saying that she would be ready. Patient does endorse that it takes 2 people just to get her into a chair. I asked her how she would do that at home when there would only be 1 person at home which would be her daughter. She cannot elaborate. I told the patient to talk with her family. Does not seem that the patient has things set up at home to be able to accommodate her. Will feel the family would be able to accommodate her, least at this point time. Patient states that she does not want to go to court as she was dragged. She denies being abused nor mistreated but not treated right. Case management to assess on the . EDIL CHAPPELL. Plan is for pt to back [facility] pending insurance authorization. Allergies/Procedures Done in Hospital Allergies promethazine HCl [From Phenergan] Adverse Reaction (Verified 02/28/22 20:56) Nausea Type of Care/Length of Stay Estimated LOS: Convalescent Care Less Than 30 days Type of Care Needed: Skilled Rehab Potential: Fair Prognosis: Fair Additional Orders/Day of Discharge Day of Discharge: 03/31/22 Dietary and Speech Recommendations Dietitian Recommendations/Changes: Recommend advance diet as tolerated to transitional with goal of carbohydrate-controlled diet. Will d/c magic cup and offer 120 ml glucerna shake TID w/ meals. Adjust ONS as needed. Discharge Plan Admission Admit Date/Time: 03/27/22 07:21 Primary Reason for Your Visit: GI bleed Attending Provider: Jairo Garza Primary Care Provider: Opal Bradford Consulting Providers: Lynn,Mir ; Kwesi Rodríguez Discharge Orders/Prescriptions Prescriptions: New sucralfate 1 gram Tablet 1 g PO TIDAC Qty: 0 0RF pantoprazole 40 mg tablet,delayed release (DR/EC) 40 mg PO BID Qty: 60 0RF Continued hydroxychloroquine [Plaquenil] 200 mg tablet 200 mg PO BID melatonin 10 mg capsule 10 mg PO HS loperamide 2 mg capsule 2 mg PO DAILY PRN PRN (Reason: Diarrhea) Label Comments: Take 1 capsule by mouth four times daily as needed for Diarrhea. metformin 500 mg tablet extended release 24 hr 500 mg PO BID pioglitazone 15 mg tablet 15 mg PO DAILY Label Comments: Take 1 tablet by mouth once daily. escitalopram oxalate 20 MG tablet 30 mg PO QHS Label Comments: DEPRESSION, taken at bedtime memantine 10 MG tablet 10 mg PO BID atorvastatin 40 MG tablet 40 mg PO QHS Label Comments: CHOLESTEROL galantamine 24 MG capsule,ext rel. pellets 24 hr 24 mg PO QHS Label Comments: TAKE 1 CAPSULE BY MOUTH EVERY DAY dicyclomine 10 mg capsule 10 mg PO BID Label Comments: TAKE 1 CAPSULE BY MOUTH BEFORE MEALS AND AT BEDTIME NEEDED acetaminophen [Tylenol] 325 mg Tablet 650 mg PO Q6H PRN PRN (Reason: Pain Score 1-10/Temp > 100.7 F) Qty: 0 0RF dexamethasone 4 mg Tablet 6 mg PO DAILY 7 Days Qty: 0 0RF Mucus Relief ER 1,200 mg Tablet Extended Release 12hr 1,200 mg PO BID Qty: 0 0RF mnieyzpple-tsnjedl-pcverurwjk 15-3.6 mg Lozenge 1 bao MUCOUS MEMBRANE Q2H PRN PRN (Reason: cough, sore throat ) Held clopidogrel 75 MG tablet 75 mg PO DAILY Hold Instructions: Resume on 04/13/22. Label Comments: BLOOD THINNER aspirin 81 MG tablet,chewable 81 mg PO DAILY@0800 Hold Instructions: Resume on 04/12/22. Label Comments: HEART HEALTH Discontinued zolpidem 5 mg tablet 5 mg PO QHS PRN PRN (Reason: Sleep) turmeric 400 mg capsule 400 mg PO DAILY cranberry 500 MG capsule 400 mg PO DAILY amlodipine 10 MG tablet 20 mg PO DAILY potassium chloride 20 mEq tablet,ER particles/crystals 40 meq PO BID lisinopril-hydrochlorothiazide 20-12.5 mg tablet 1 tab PO DAILY Label Comments: Take 1 tablet by mouth once daily. Referrals / Follow Up: [facility] [Provider Group] - Within 3 Months Opal Bradford MD [Primary Care Provider] - Within 2 Weeks Disposition Disposition (needs filled in before D/C Order can be placed): Custodial Facility (1) Type 2 diabetes mellitus Qualifiers: Diabetes mellitus complication status: with unspecified complications Diabetes mellitus senior living insulin use: without senior living use Qualified Code(s): E11.8 - Type 2 diabetes mellitus with unspecified complications
[2022-03-31 11:40] LABS: Bedside Glucose 253 mg/dL (74-106)
--- NOTE | 2022-03-31 14:03 | CASEMGMT ---
Discharge Field Radio Technician Danielle reached out to Sandie at [facility]. Could not leave a voicemail due to her box being full. Danielle called Emilie at [facility] and left a voicemail for her to call the health technical writer back. Plan: [facility], Waiting pre-cert. Danielle Beal Discharge Field Radio Technician
[2022-03-31] MEDS: Nystatin Powder 15gm Bottle 1 APPLIC TOPICAL ×2 (14:27→21:09)
--- NOTE | 2022-03-31 15:10 | CASEMGMT ---
SAM e-mailed Sadnie at [facility] regarding whether or not they received pre-cert for patient. Sandie responded they have not heard anything from insurance yet. SAM called patient's daughter Nanci and asked if she could come in and assist SAM with completing a Medicaid application for patient. Nanci said she would come in to [facility]. Annie OJEDA
--- NOTE | 2022-03-31 15:38 | CASEMGMT ---
SAM met with patient and her daughter. SW assisted them in completing a Medicaid application. Patient's daughter needs to take the one page of the application home so she can look at patient's check book to get the correct numbers. SAM had patient and her daughter sign the pages that needed signed. Patient's daughter is not able to come in tomorrow so she will give the page to her daughter to bring in and drop off. Annie Serra BORDER PATROL OFFICER LYNETTE
[2022-03-31 17:00] LABS: Bedside Glucose 189 mg/dL (74-106)
[2022-03-31 21:35] LABS: Bedside Glucose 204 mg/dL (74-106)
[2022-04-01 00:08] VITALS: PULSE 75
[2022-04-01 03:14] VITALS: BP 130/57; PULSE 77; RESP 16; TEMP 36.7; O2SAT 97
[2022-04-01 04:12] VITALS: PULSE 80
[2022-04-01] MEDS: Nystatin Powder 15gm Bottle 1 APPLIC TOPICAL ×2 (05:53→14:24)
[2022-04-01] MEDS: Sucralfate 1 GM Tablet PO ×2 (05:55→11:01)
[2022-04-01] MEDS: Insulin Lispro 100 UNIT/ML INSULN.PEN SC ×2 (05:59→11:01)
[2022-04-01 06:31] LABS: Bedside Glucose 174 mg/dL (74-106)
[2022-04-01 06:58] VITALS: PULSE 82
--- NOTE | 2022-04-01 08:00 | CASEMGMT ---
Addendum entered by Danielle Beal 04/01/22 08:02: Sandie from [facility] reached out. Auth is still pending at this time. Plan: [facility], Waiting pre-cert. Danielle Beal Discharge Telegraph And Teletype Operator Original Note: Discharge Telegraph And Teletype Operator Danielle reached out to Sandie at [facility]. Waiting to hear back. Will follow up. Plan: [facility], Waiting pre-cert Danielle Beal Discharge Telegraph And Teletype Operator
--- NOTE | 2022-04-01 09:02 | PCM.PN.HOSP ---
Subjective Subjective No new events. Still waiting on insurance approval. Objective Data Objective Data Vital Signs: Vital Signs Temp Pulse Resp BP Pulse Ox O2 Del Method 36.7 C 82 16 130/57 H 97 Room Air 04/01/22 03:14 04/01/22 06:58 04/01/22 03:14 04/01/22 03:14 04/01/22 03:14 04/01/22 08:20 Oxygen Delivery Method Room Air Weight: 86.7 kg Body Mass Index (BMI) 32.8 Intake & Output: Intake and Output for Last 24 Hours 03/30/22 03/31/22 04/01/22 23:59 23:59 23:59 Intake Total 3250.17 / 3250.17 1636.33 / 1636.33 300 / 300 Output Total 3650 / 3650 1550 / 1550 600 / 600 Balance -399.83 / -399.83 86.33 / 86.33 -300 / -300 Medical Nutrition Assessment Dietitian: Malnutrition Criteria Met Start: 03/27/22 15:11 Freq: Status: Active Protocol: Document 03/30/22 12:07 RMA (Rec: 03/30/22 12:07 RMA [id number]) Nutrition Malnutrition Evidence of Malnutrition Exists Yes Malnutrition (severe): Acute Illness/Injury Evidenced By Suboptimal Energy Intake ( Severe),Weight Loss (Severe) Clinical Problem Acute Disease or Injury Related Malnutrition Etiology severe, acute malnutrition r/t GI dysfunction Signs/Symptoms as evidenced by unintentional wt loss of 10.7#/5% x 9 days, estimated PO intake meeting ~ 50% of estimated energy needs x 1 week Status Active Problem Recommendation Dietitian Recommendations/Changes Recommend advance diet as tolerated to transitional with goal of carbohydrate- controlled diet. Will d/c magic cup and offer 120 ml glucerna shake TID w/ meals. Adjust ONS as needed. Lab / Micro Data Result Diagrams: 03/31/22 05:43 03/30/22 05:35 Labs: Laboratory Results - last 24 hr 03/31/22 11:21: POC Glucose 253 H 03/31/22 16:22: POC Glucose 189 H 03/31/22 21:08: POC Glucose 204 H 04/01/22 05:58: POC Glucose 174 H Physical Exam Const alert Constitutional Narrative: up in chair eating breakfast. HEENT head/scalp atraumatic Resp normal respiratory effort, no retractions, no use of accessory muscles and clear to auscultation bilaterally Cardio regular rate, regular rhythm, S1 normal heart sound and S2 normal heart sound GI normal to inspection, nondistended, normoactive bowel sounds and soft to palpation Extremity normal to inspection Assessment & Plan Assessment/Plan (1) ABLA (acute blood loss anemia): PLAN: Acute blood loss anemia Hemoglobin on presentation at [facility] ED was 8.1. Hemoglobin from the same hospital on 03/17/2022 was 13.1. Review of hospital record shows baseline hemoglobin of about 13. BUN at outside hospital on presentation was 32. Her BUN on 03/17/2022 at outside hospital was 39. Review of community records shows that this is above her baseline. Trend BMP H&H on arrival at our hospital was 7.1. Type and cross for 2 units of blood to be transfused 1 units ordered. 2/2 GI bleed Hemoglobin has been stable (2) GI bleed: PLAN: Patient had EGD today that showed grade D reflux esophagitis, medium size hiatal hernia and multiple oozing duodenal ulcers with a visible vessel. Treated with heater probe. GI recommending clear liquids and no aspirin, NSAIDs for 13 days. Continue with pantoprazole 40 twice daily for 8 weeks and sucralfate 1 g 4 times daily for 4 weeks. (3) Type 2 diabetes mellitus: QUALIFIERS: Diabetes mellitus complication status: with unspecified complications Diabetes mellitus prison insulin use: without prison use Qualified Code(s): E11.8 - Type 2 diabetes mellitus with unspecified complications PLAN: Diabetes mellitus Review of [facility] ED record shows hyperglycemia. Hold home metformin Monitor Accu-Cheks Correction scale insulin ordered. PLAN: Plan History of hypertension Blood pressure are soft. Hold home blood pressure medications. Trend blood pressure. DVT prophylaxis: SCDs ordered. Disposition: Original plan was for the patient to return to [place], but will need precertification beforehand. Therefore, discharge will not happen until the or , presuming the patient is medically ready. Patient's tell me today that her family can take her at home. I asked her how but she cannot elaborate saying that she would be ready. Patient does endorse that it takes 2 people just to get her into a chair. I asked her how she would do that at home when there would only be 1 person at home which would be her daughter. She cannot elaborate. I told the patient to talk with her family. Does not seem that the patient has things set up at home to be able to accommodate her. Will feel the family would be able to accommodate her, least at this point time. Patient states that she does not want to go to court as she was dragged. She denies being abused nor mistreated but not treated right. Case management to assess on the . EDIL CHAPPELL. Plan is for pt to back [facility] pending insurance authorization. Charges/Coding Visit Charges Inpatient E&M: 43419 Subs Hosp L2
[2022-04-01 09:14] VITALS: BP 151/67; PULSE 84; RESP 18; TEMP 36.8; O2SAT 94
--- NOTE | 2022-04-01 11:13 | CASEMGMT ---
SW spoke with patient to see if anyone dropped off anything for SW. Patient said no. SW will check back again later. Patient's daughter was having a procedure today. SAM let patient know that we are still waiting on patient's insurance. Annie Serra JAVA J2EE LEADMarilee OJEDA
--- NOTE | 2022-04-01 11:34 | CASEMGMT ---
SAM sent updated PT/OT to [place] through [facility]. Annie Serra CARBON PAPER COATING MACHINE SETTER LYNETTE
[2022-04-01 11:35] LABS: Bedside Glucose 246 mg/dL (74-106)
--- NOTE | 2022-04-01 13:48 | CASEMGMT ---
Danielle wilkerson/dionisio planning official re-sent patient's PT/OT notes that SAM sent earlier. Sandie then responded she received documents. SAM then sent today's PT/OT notes via [facility]. Annie OJEDA
--- NOTE | 2022-04-01 14:19 | CASEMGMT ---
Discharge Quality Assurance Supervisor Body Sandie from [facility] reached out. Pre-cert has been obtained. SAM [place] notified. Plan: So Beal Discharge Quality Assurance Supervisor Body
--- NOTE | 2022-04-01 14:24 | DS.PCM_ITS ---
Providers Date of Admission: 03/27/22 Primary Care Physician: Dr. Opal Bradford MD Consultations 03/27/22 02:57 Consult: Gastroenterology Routine Consulting Provider: Ra Lynnhsaan Reason for Consult: ABLA EMERGENT Consult: No MD Notified: Yes Date Notified: 03/27/22 Time Notified: 02:57 Method of Notification: Verbal Reason For Visit: GI BLEED Diagnosis Discharge Diagnosis (1) ABLA (acute blood loss anemia): Status: Acute Code(s): D62 - Acute posthemorrhagic anemia Plan: Acute blood loss anemia Hemoglobin on presentation at [facility] ED was 8.1. Hemoglobin from the same hospital on 03/17/2022 was 13.1. Review of hospital record shows baseline hemoglobin of about 13. BUN at outside hospital on presentation was 32. Her BUN on 03/17/2022 at outside hospital was 39. Review of community records shows that this is above her baseline. Trend BMP H&H on arrival at our hospital was 7.1. Type and cross for 2 units of blood to be transfused 1 units ordered. 2/2 GI bleed Hemoglobin has been stable (2) GI bleed: Status: Acute Code(s): K92.2 - Gastrointestinal hemorrhage, unspecified Plan: Patient had EGD today that showed grade D reflux esophagitis, medium size hiatal hernia and multiple oozing duodenal ulcers with a visible vessel. Treated with heater probe. GI recommending clear liquids and no aspirin, NSAIDs for 13 days. Continue with pantoprazole 40 twice daily for 8 weeks and sucralfate 1 g 4 times daily for 4 weeks. (3) Type 2 diabetes mellitus: Status: Chronic Code(s): E11.9 - Type 2 diabetes mellitus without complications Qualifiers: Diabetes mellitus complication status: with unspecified complications Diabetes mellitus longitudinal float operator insulin use: without jail use Qualified Code(s): E11.8 - Type 2 diabetes mellitus with unspecified complications Plan: Diabetes mellitus Review of [facility] ED record shows hyperglycemia. Hold home metformin Monitor Accu-Cheks Correction scale insulin ordered. Plan History of hypertension Blood pressure are soft. Hold home blood pressure medications. Trend blood pressure. DVT prophylaxis: SCDs ordered. Disposition: Original plan was for the patient to return to [place], but will need precertification beforehand. Therefore, discharge will not happen until the or , presuming the patient is medically ready. Patient's tell me today that her family can take her at home. I asked her how but she cannot elaborate saying that she would be ready. Patient does endorse that it takes 2 people just to get her into a chair. I asked her how she would do that at home when there would only be 1 person at home which would be her daughter. She cannot elaborate. I told the patient to talk with her family. Does not seem that the patient has things set up at home to be able to accommodate her. Will feel the family would be able to accommodate her, least at this point time. Patient states that she does not want to go to court as she was dragged. She denies being abused nor mistreated but not treated right. Case management to assess on the . EDIL CHAPPELL. Plan is for pt to back [facility] pending insurance authorization. Medications at Discharge Home Medications escitalopram oxalate 20 mg tablet 30 mg PO QHS mood enhancer 06/14/17 memantine 10 mg tablet 10 mg PO BID dementia 06/08/18 aspirin 81 mg chewable tablet 81 mg PO DAILY@0800 heart 06/10/18 atorvastatin 40 mg tablet 40 mg PO QHS cholesterol 06/10/18 clopidogrel 75 mg tablet 75 mg PO DAILY blood thinner 06/10/18 hydroxychloroquine 200 mg tablet (Plaquenil) 200 mg PO BID arthritis 09/08/18 galantamine 24 mg 24 hr capsule,extended release 24 mg PO QHS dementia 10/24/18 melatonin 10 mg capsule 10 mg PO HS sleep 04/27/19 loperamide 2 mg capsule 2 mg PO DAILY PRN PRN Diarrhea 07/25/20 metformin 500 mg tablet,extended release 24 hr 500 mg PO BID diabetes 07/23/21 pioglitazone 15 mg tablet 15 mg PO DAILY supplement 07/23/21 dicyclomine 10 mg capsule 10 mg PO BID IBS 03/01/22 acetaminophen 325 mg tablet (Tylenol) 650 mg PO Q6H PRN PRN Pain Score 1-10/Temp > 100.7 F #0 tabs 03/04/22 dexamethasone 4 mg tablet 6 mg PO DAILY 7 days #0 tabs 03/04/22 guaifenesin 1,200 mg tablet, extended release 12 hr (Mucus Relief ER) 1,200 mg PO BID #0 tabs 03/04/22 shztpupqvr-ufcrkyq-qxyvftsnskmij 15 mg-3.6 mg lozenges 1 bao mucous membrane Q2H PRN PRN cough, sore throat 03/27/22 pantoprazole 40 mg tablet,delayed release 40 mg PO BID #60 tabs 03/31/22 sucralfate 1 gram tablet 1 g PO TIDAC #0 tabs 03/31/22 Hospital Course Procedures EGD Summary of Care Provided Minutes Spent on Discharge: 28 Medical Records Data Medical Nutrition Assessment Dietitian: Malnutrition Criteria Met Start: 03/27/22 15:11 Freq: Status: Active Protocol: Document 03/30/22 12:07 RMA (Rec: 03/30/22 12:07 RMA [id number]) Nutrition Malnutrition Evidence of Malnutrition Exists Yes Malnutrition (severe): Acute Illness/Injury Evidenced By Suboptimal Energy Intake ( Severe),Weight Loss (Severe) Clinical Problem Acute Disease or Injury Related Malnutrition Etiology severe, acute malnutrition r/t GI dysfunction Signs/Symptoms as evidenced by unintentional wt loss of 10.7#/5% x 9 days, estimated PO intake meeting ~ 50% of estimated energy needs x 1 week Status Active Problem Recommendation Dietitian Recommendations/Changes Recommend advance diet as tolerated to transitional with goal of carbohydrate- controlled diet. Will d/c magic cup and offer 120 ml glucerna shake TID w/ meals. Adjust ONS as needed. Weight / BMI Weight Weight: 86.7 kg Body Mass Index (BMI) 32.8 ABG / Lab / Microbiology Data Result Diagrams: 03/31/22 05:43 03/30/22 05:35 Laboratory: Laboratory Results - last 24 hr 03/31/22 16:22: POC Glucose 189 H 03/31/22 21:08: POC Glucose 204 H 04/01/22 05:58: POC Glucose 174 H 04/01/22 10:59: POC Glucose 246 H Meaningful Use Info Meaningful Use Diagnoses (Choose all that apply): None applicable Discharge Plan Admission Admit Date/Time: 03/27/22 07:21 Primary Reason for Your Visit: GI bleed Attending Provider: Jairo Garza Primary Care Provider: Opal Bradford Consulting Providers: Lynn,Mir ; Kwesi Rodríguez Discharge Orders/Prescriptions Prescriptions: New sucralfate 1 gram Tablet 1 g PO TIDAC Qty: 0 0RF pantoprazole 40 mg tablet,delayed release (DR/EC) 40 mg PO BID Qty: 60 0RF Continued hydroxychloroquine [Plaquenil] 200 mg tablet 200 mg PO BID melatonin 10 mg capsule 10 mg PO HS loperamide 2 mg capsule 2 mg PO DAILY PRN PRN (Reason: Diarrhea) Label Comments: Take 1 capsule by mouth four times daily as needed for Diarrhea. metformin 500 mg tablet extended release 24 hr 500 mg PO BID pioglitazone 15 mg tablet 15 mg PO DAILY Label Comments: Take 1 tablet by mouth once daily. escitalopram oxalate 20 MG tablet 30 mg PO QHS Label Comments: DEPRESSION, taken at bedtime memantine 10 MG tablet 10 mg PO BID atorvastatin 40 MG tablet 40 mg PO QHS Label Comments: CHOLESTEROL galantamine 24 MG capsule,ext rel. pellets 24 hr 24 mg PO QHS Label Comments: TAKE 1 CAPSULE BY MOUTH EVERY DAY dicyclomine 10 mg capsule 10 mg PO BID Label Comments: TAKE 1 CAPSULE BY MOUTH BEFORE MEALS AND AT BEDTIME NEEDED acetaminophen [Tylenol] 325 mg Tablet 650 mg PO Q6H PRN PRN (Reason: Pain Score 1-10/Temp > 100.7 F) Qty: 0 0RF dexamethasone 4 mg Tablet 6 mg PO DAILY 7 Days Qty: 0 0RF Mucus Relief ER 1,200 mg Tablet Extended Release 12hr 1,200 mg PO BID Qty: 0 0RF scliylqjom-wkkwwnj-hcidupgxpo 15-3.6 mg Lozenge 1 bao MUCOUS MEMBRANE Q2H PRN PRN (Reason: cough, sore throat ) Held clopidogrel 75 MG tablet 75 mg PO DAILY Hold Instructions: Resume on 04/13/22. Label Comments: BLOOD THINNER aspirin 81 MG tablet,chewable 81 mg PO DAILY@0800 Hold Instructions: Resume on 04/12/22. Label Comments: HEART HEALTH Discontinued zolpidem 5 mg tablet 5 mg PO QHS PRN PRN (Reason: Sleep) turmeric 400 mg capsule 400 mg PO DAILY cranberry 500 MG capsule 400 mg PO DAILY amlodipine 10 MG tablet 20 mg PO DAILY potassium chloride 20 mEq tablet,ER particles/crystals 40 meq PO BID lisinopril-hydrochlorothiazide 20-12.5 mg tablet 1 tab PO DAILY Label Comments: Take 1 tablet by mouth once daily. Referrals / Follow Up: [facility] [Provider Group] - Within 3 Months Opal Bradford MD [Primary Care Provider] - Within 2 Weeks Disposition Disposition (needs filled in before D/C Order can be placed): [facility] Facility Charges/Coding Visit Charges Inpatient E&M: 59192 Disch Hosp
--- NOTE | 2022-04-01 14:29 | CASEMGMT ---
Discharge [place] This sql report writer called [facility] and spoke with Ebony. This sql report writer requested a wheel chair for patient. supplier specialist time is 4:00pm . Nursing staff and family made aware. Plan: So [facility] Discharge [place]
--- NOTE | 2022-04-01 14:31 | CASEMGMT ---
Addendum entered by Annie Serra 04/01/22 14:36: SW notified patient as well. Annie OJEDA Original Note: Patient was approved to return to [place]. [facility] SAM notified RN, patient's daughter, and medical secretary receptionist. D/C conference planning manager Danielle set up transportation with [facility] via wheelchair. Plan: d/c back to [place] under skilled level of care. Physicians transported via wheelchair van. Annie OJEDA
[2022-04-01 15:01] VITALS: BP 126/56; PULSE 87; RESP 18; TEMP 37.1; O2SAT 95
--- NOTE | 2022-04-01 15:48 | PHA.DC.MR ---
Pharmacy Service has performed discharge medication reconciliation for this patient. The patient's discharge medication list was reviewed for discrepancies and discrepancies were resolved. Home Medications escitalopram oxalate 20 mg tablet 30 mg PO QHS mood enhancer 06/14/17 memantine 10 mg tablet 10 mg PO BID dementia 06/08/18 aspirin 81 mg chewable tablet 81 mg PO DAILY@0800 heart 06/10/18 atorvastatin 40 mg tablet 40 mg PO QHS cholesterol 06/10/18 clopidogrel 75 mg tablet 75 mg PO DAILY blood thinner 06/10/18 hydroxychloroquine 200 mg tablet (Plaquenil) 200 mg PO BID arthritis 09/08/18 galantamine 24 mg 24 hr capsule,extended release 24 mg PO QHS dementia 10/24/18 melatonin 10 mg capsule 10 mg PO HS sleep 04/27/19 loperamide 2 mg capsule 2 mg PO DAILY PRN PRN Diarrhea 07/25/20 metformin 500 mg tablet,extended release 24 hr 500 mg PO BID diabetes 07/23/21 pioglitazone 15 mg tablet 15 mg PO DAILY supplement 07/23/21 dicyclomine 10 mg capsule 10 mg PO BID IBS 03/01/22 acetaminophen 325 mg tablet (Tylenol) 650 mg PO Q6H PRN PRN Pain Score 1-10/Temp > 100.7 F #0 tabs 03/04/22 dexamethasone 4 mg tablet 6 mg PO DAILY 7 days #0 tabs 03/04/22 guaifenesin 1,200 mg tablet, extended release 12 hr (Mucus Relief ER) 1,200 mg PO BID #0 tabs 03/04/22 iyremmdkzg-kouyjwk-lojcxxfywatjg 15 mg-3.6 mg lozenges 1 bao mucous membrane Q2H PRN PRN cough, sore throat 03/27/22 pantoprazole 40 mg tablet,delayed release 40 mg PO BID #60 tabs 03/31/22 sucralfate 1 gram tablet 1 g PO TIDAC #0 tabs 03/31/22
== END 2022-04-01 15:56 | disposition skilled nursing facility (03) | DRG 377 ==
PROVIDERS: Internal Medicine Gastroenterology; Admitting Provider Hospitalist; PCP Internal Medicine
PROC: 0DJ08ZZ Inspection of Upper Intestinal Tract, Via Natural or Artificial Opening Endoscopic (ICD-10-PCS; CPT 43235; principal; 2022-03-27 15:25)
DX: K26.4 Chronic or unspecified duodenal ulcer with hemorrhage (principal); E43 Unspecified severe protein-calorie malnutrition; I69.354 Hemiplegia and hemiparesis following cerebral infarction affecting left non-dominant side; D62 Acute posthemorrhagic anemia; I27.20 Pulmonary hypertension, unspecified; E11.40 Type 2 diabetes mellitus with diabetic neuropathy, unspecified; F03.90 Unspecified dementia, unspecified severity, without behavioral disturbance, psychotic disturbance, mood disturbance, and anxiety; E11.65 Type 2 diabetes mellitus with hyperglycemia; I10 Essential (primary) hypertension; E78.5 Hyperlipidemia, unspecified; I45.10 Unspecified right bundle-branch block; K21.00 Gastro-esophageal reflux disease with esophagitis, without bleeding; K44.9 Diaphragmatic hernia without obstruction or gangrene; I25.10 Atherosclerotic heart disease of native coronary artery without angina pectoris; F32.A Depression, unspecified; Z91.51 Personal history of suicidal behavior; Z87.440 Personal history of urinary (tract) infections; E66.9 Obesity, unspecified; Z79.82 Long term (current) use of aspirin; Z79.899 Other long term (current) drug therapy; Z79.84 Long term (current) use of oral hypoglycemic drugs; Z87.891 Personal history of nicotine dependence; Z68.32 Body mass index [BMI] 32.0-32.9, adult; Z90.49 Acquired absence of other specified parts of digestive tract; Z79.02 Long term (current) use of antithrombotics/antiplatelets
CPT/HCPCS: 36415; 80048; 82962; 85014; 85018; 85025; 86850; 86900; 86901; 86920; 86922; 87426; 97110; 97162; 97166; 97530; 97535; J7030; J7040; P9016; A4216; J2405

== ENCOUNTER → 2022-08-08 | Outpatient (CLI) | payer MEDICARE, SELFPAY ==
[2022-08-08 12:00] LABS: Absolute Lymphocyte Count 1.21 X10^3/uL (0.83-4.51); Absolute Neutrophil Count 2.1 X10^3/uL (2.0-7.7); Basophil# 0.02 X10^3/uL; Basophil% 0.5 % (0-1); Eosinophil# 0.11 X10^3/uL; Eosinophils% 2.8 % (0-5); Hematocrit 30.4 % (37-47); Hemoglobin 9.5 g/dL (12.0-15.0); Lymphocyte # 1.21 X10^3/ul (0.83-4.51); Lymphocyte % 30.3 % (19-41); Mean Corp Hgb Conc 31.3 g/dL (32-36); Mean Corpuscular Hgb 25.8 pg (27.0-32.0); Mean Corpuscular Volume 82.6 fL (81-99); Mean Platelet Vol. 11.1 fl (6.2-12.0); Monocyte# 0.54 X10^3/uL; Monocyte% 13.5 % (0-10); NRBC Flagged by Analyzer 0 % (0-5); Neutrophil # 2.11 X10^3/uL (2.7-7.7); Neutrophil % 52.6 % (47-70); Platelet Count 224 K/mm3 (150-450); RBC Distribution Width CV 15.2 % (11.6-14.6); Red Blood Count 3.68 M/mm3 (4.2-5.4)
[2022-08-08 12:07] LABS: Anion Gap 9 (5-15); BUN 14 mg/dL (7-18); BUN/Creat Ratio 15.8 RATIO (10-20); Calcium,Total 7.8 mg/dL (8.5-10.1); Chloride 106 mmol/L (98-107); Creatinine, Serum 0.89 mg/dL (0.55-1.02); EST Glomerular Filtration Rate 66 mL/min (>60); Est Glom Filt Rate - Afr Amer 80 mL/min (>60); Glucose 122 mg/dL (74-106); Potassium 4.1 mmol/L (3.5-5.1); Sodium Level 145 mmol/L (136-145)
[2022-08-08 12:09] LABS: BNP,B-Type NATRIURETIC PEPTIDE 54.2 pg/mL (0-100)
== END | disposition home or self-care (01) ==
LOC: LAB 11:52
PROVIDERS: PCP Internal Medicine
DX: R41.82 Altered mental status, unspecified (principal)
CPT/HCPCS: 80048; 83880; 85025

== ENCOUNTER 2022-12-15 20:48 | Observation (INO) | payer MEDICARE, SELFPAY ==
[2022-12-15 20:50] VITALS: BP 174/74; PULSE 84; RESP 15; TEMP 36.2; O2SAT 94
[2022-12-15 22:40] VITALS: BMI 33.4
--- NOTE | 2022-12-15 22:52 | CT_ITS ---
INDICATION: fall, weakness, head trauma EXAMINATION: CT BRAIN - CT Head or Brain W/O Contrast Injection TECHNIQUE: Multiple axial images were obtained of the head without intravenous contrast. A radiation dose optimization technique was used for this scan. IV Contrast dosage and agent: None. RADIATION DOSAGE (If Supplied By Facility): CTDIvol = ( 44.99 ) mGy, DLP = ( 796.00 ) mGycm COMPARISON: No relevant prior examinations for comparison FINDINGS: HEMISPHERES: 1. The cerebral parenchyma, ventricular system, subarachnoid spaces have normal configuration and density. There is a normal gyral pattern. There is normal rivas/white differentiation. No midline shift.. 2. Diffuse involutional change, extensive chronic deep white matter disease and areas of remote lacunar infarct present within the LEFT de la garza radiata, as well as RIGHT internal capsule. 3. No intraparenchymal mass, hemorrhage, or acute territorial infarct. CEREBELLUM - BRAINSTEM: The cerebellum, brainstem, basilar and suprasellar cisterns have normal appearance. No Chiari malformation. PITUITARY: Infundibulum and pituitary have normal configuration. Midline structures appear normal. CSF SPACES: Appropriate for age. No hydrocephalus. Basal cisterns are patent. VESSELS: 1. Diffuse carotid calcifications. 2. No hyperdense vascular signs noted.. ORBITS AND PARANASAL SINUSES: 1. Normal appearance of the bony orbits. Normal appearance of the globes and retrobulbar soft tissues.. 2. Paranasal sinuses are clear. BONY ELEMENTS: Bony elements of the cranial vault, facial skeleton and skull base have normal appearance. Hyperostosis frontalis is again present. SCALP AND SOFT TISSUES: Normal appearance of the soft tissues of the scalp and the visualized face OTHER: None ASPECTS Score for Acute Strokes: 10 CT/Brain/Head without Contrast IMPRESSION: 1. Stable exam 2. Diffuse involutional change, extensive deep white matter disease and bilateral remote lacunar infarcts. 3. No intracranial mass, hemorrhage or acute territorial infarct. 4. No radiographically significant sinus disease.. Electronically Signed: Mohinder Cooper MD at 23:44 EDT ,
--- NOTE | 2022-12-15 22:52 | CT_ITS ---
INDICATION: thorax trauma EXAMINATION: CT CHEST WITHOUT CONTRAST - CT Chest W/O Contrast Injection TECHNIQUE: Helically acquired images were obtained of the chest. A radiation dose optimization technique was used for this scan. IV Contrast dosage and agent: None. Radiation Dose (provided by facility) CTDIvol (NA ) mGy, DLP ( NA) mGy-cm COMPARISON: Chest radiograph of 02/28/2022 FINDINGS: LUNGS, PLEURA AND LARGE AIRWAYS: Pleural thickening and mild interstitial prominence at the lung bases. Mild atelectasis noted. No consolidation, no effusion. There is calcified granuloma in the anterior aspect of the RIGHT lower lobe. No pneumothorax. THYROID: No thyroid lesions. HEART AND PERICARDIUM: Cardiac contour is prominent. There is pericardial effusion. Coronary vascular calcifications and valvular annulus calcifications. VESSELS: Diffuse aortic calcifications. No aneurysmal dilatation. MEDIASTINUM AND BORIS: No mediastinal or hilar adenopathy. Esophagus is unremarkable. No hiatal hernia. UPPER ABDOMEN: No acute pathology. BONES: No suspicious lytic or blastic abnormality. No acute fractures noted. Mild thoracic spondylosis. No canal stenosis. CT/Chest without Contrast IMPRESSION: 1. Mild interstitial thickening and pleural thickening at both lung bases. 2. No CT evidence of acute traumatic injury to the chest. 3. No pulmonary consolidation contusion effusion or pneumothorax. 4. Scattered granulomatous changes. 5. Pericardial effusion. 6. No acute bony fractures noted. Electronically Signed: Mohinder Cooper MD at 0:15 EDT ,
--- NOTE | 2022-12-15 22:53 | EKG12_ITS ---
Test Reason : DYSRHYTHMIA Blood Pressure : / mmHG Vent. Rate : 078 BPM Atrial Rate : 078 BPM P-R Int : 196 ms QRS Dur : 152 ms QT Int : 446 ms P-R-T Axes : 008 -70 019 degrees QTc Int : 508 ms Normal sinus rhythm Left axis deviation Right bundle branch block Abnormal ECG Confirmed by CHESTER BERG, KEN ([id number]), videotape editor STEFANIE DOZIER ([id number]) on 12/18/2022 8:02:53 AM Referred By: LATANYA Confirmed By:KEN BRIGGS MD
--- NOTE | 2022-12-15 23:36 | EDS_ITS ---
HPI HPI - Fall History of Present Illness Chief Complaint: Fall Informant: patient and family Narrative Narrative: Patient is a 77-year-old female with history of dementia, prior stroke with residual left-sided deficits, hypertension, hyperlipidemia and pulmonary hypertension presenting with increased weakness and falls. Patient lives at home with daughter. Daughter is quite concerned that patient is getting more weak especially over the past 2 to 3 weeks and does not think she can care for her anymore. Today when patient was attempting to transfer from her wheelchair into the lift chair patient lost her balance and fell. She hit her left shoulder/back on the coffee table and hit her nose on the couch. No report of loss of consciousness. Patient is on Plavix and aspirin per her daughter. Patient has chronic UTIs and is on daily antibiotic to prevent it. The daughter thinks that the antibiotic is cephalexin. She has chronic diarrhea and urinary incontinence. Daughter is not noticed any change in appetite, new focal weakness, fevers, cough, change in bowel habits, nausea or vomiting. Patient last had physical therapy about 2 years ago per her daughter. [facility] Medical History (Updated 12/16/22 @ 09:[address] Cece Pena, ) Anxiety Carotid stenosis, right Chronic pain Confusion CVA (cerebral infarction) (11/2012) Debility Dementia Dementia associated with other underlying disease with behavioral disturbance Depression Diabetes Diabetic neuropathy Difficulty walking Essential hypertension Former smoker GERD (gastroesophageal reflux disease) History of suicide attempt Hyperlipidemia Hypertension Left hemiparesis Localized swelling of both lower legs mechanical fall Obesity Osteoporosis Physical debility Pre-operative cardiovascular examination Pulmonary hypertension Right bundle branch block Stroke/cerebrovascular accident Tobacco abuse Type 2 diabetes mellitus UTI (urinary tract infection) Weakness Home Medications escitalopram oxalate 20 mg tablet 30 mg PO QHS mood enhancer 06/14/17 [History Last Taken 10/23/18] memantine 10 mg tablet 10 mg PO BID dementia 06/08/18 [History Last Taken 10/23/18] aspirin 81 mg chewable tablet 81 mg PO DAILY@0800 heart 06/10/18 [History Last Taken 10/22/18] atorvastatin 40 mg tablet 40 mg PO QHS cholesterol 06/10/18 [History Last Taken 10/23/18] clopidogrel 75 mg tablet 75 mg PO DAILY blood thinner 06/10/18 [History Last Taken 10/22/18] hydroxychloroquine 200 mg tablet (Plaquenil) 200 mg PO BID arthritis 09/08/18 [History Last Taken 10/22/18] melatonin 10 mg capsule 10 mg PO HS sleep 04/27/19 [History Last Taken Unknown] loperamide 2 mg capsule 2 mg PO Q6H PRN Diarrhea 07/25/20 [History Last Taken Unknown] metformin 500 mg tablet,extended release 24 hr 500 mg PO BID diabetes 07/23/21 [History Last Taken Unknown] pioglitazone 15 mg tablet 15 mg PO DAILY supplement 07/23/21 [History Last Taken Unknown] dicyclomine 10 mg capsule 10 mg PO 4X/DAY PRN PRN Pain 03/01/22 [History Last Taken Unknown] acetaminophen 325 mg tablet (Tylenol) 650 mg PO Q6H PRN PRN Pain Score 1-10/Temp > 100.7 F #0 tabs 03/04/22 [Rx Last Taken Unknown] guaifenesin 1,200 mg tablet, extended release 12 hr (Mucus Relief ER) 1,200 mg PO BID #0 tabs 03/04/22 [Rx Last Taken Unknown] cephalexin 250 mg capsule 250 mg PO DAILY PRN infection 12/16/22 [History Last Taken Unknown] galantamine 16 mg 24 hr capsule,extended release 16 mg PO DAILY 12/16/22 [History Last Taken Unknown] galantamine 8 mg 24 hr capsule,extended release 8 mg PO DAILY 12/16/22 [History Last Taken Unknown] pantoprazole 40 mg tablet,delayed release 40 mg PO BID 12/16/22 [History Last Taken Unknown] venlafaxine 75 mg capsule,extended release 24 hr 75 mg PO DAILY 12/16/22 [History Last Taken Unknown] zolpidem 5 mg tablet 5 mg PO QHS PRN Sleep 12/16/22 [History Last Taken Unknown] Allergy/AdvReac Type Severity Reaction Status Date / Time promethazine HCl AdvReac Nausea Verified 12/15/22 20:57 [From Phenergan] Family History Father Alcoholism Depression Son Alcoholism Depression Diabetes Hypertension Daughter Alcoholism Asthma Depression Hypertension Migraines Mother Breast cancer Depression Surgical History History of appendectomy History of carotid endarterectomy (~10/2018) History of dilation and curettage History of tonsillectomy and adenoidectomy History of tubal ligation Previous back surgery Status post lumbar spine surgery for decompression of spinal cord Social History Smoking Status: Former smoker pack-years: 25 how long ago did patient quit smokin years ago alcohol intake: never substance use type: does not use caffeine: Yes Type: coffee Number of servings: 2 ROS ROS ED ROS Narrative Review of systems is limited secondary to patient's dementia Constitutional Constitutional ED: Denies chills or fever(s) Gastrointestinal Gastrointestinal: Reports diarrhea Genitourinary Genitourinary ED: Reports other Details: Chronic urinary incontinence Integumentary Reports Abrasions Neurologic Neurologic: Reports weakness and other Details: Chronic left-sided deficits from prior stroke Hematologic/Lymphatic Hematologic/Lymphatic: Reports easy bleeding and easy bruising EXAM Physical Exam Const Vital Signs: 12/15/22 20:50 12/15/22 22:28 12/16/22 00:17 Temperature 97.2 F L 97.9 F Temperature Source Temporal Oral Pulse Rate 84 Respiratory Rate 15 Respiratory Effort Normal Blood Pressure 174/74 H Blood Pressure Mean 107 Pulse Ox 94 Oxygen Delivery Method Room Air Positive well nourished and well developed General Appearance ED: well developed and NAD HEENT HEENT Narrative: Bilateral cerumen impactions, superficial abrasion to the bridge of the nose. No signs of epistaxis. No other signs of facial trauma. Eyes PERRL and EOMs intact bilaterally Neck full ROM and supple Chest Wall inspection of chest normal and palpation of chest normal Resp normal respiratory effort and clear to auscultation bilaterally Auscultation: Negative for wheezes or diminished lung sounds Cardio regular rate, regular rhythm and no murmurs GI non-tender and non-distended Back/Spine no CVA tenderness Back/Spine Narrative: Patient has a hematoma and abrasion to the left posterior ribs around approximately T7-10 Cervical Spine: Negative for cervical spine tenderness Thoracic Spine / Upper Back: Negative for thoracic spinal tenderness Neuro Neuro Narrative: At baseline, left-sided deficits with associated contracture of the left hand Sensorium / Orientation: alert, oriented to person and confused Psych mental status grossly normal and thought process normal Skin Skin Narrative: Abrasion to the left thoracic back, see above. 1 cm linear superficial abrasion to the bridge of the nose on the left side. no active bleeding MDM MDM MDM Narrative Medical decision making narrative: Patient is presenting for fall and concern for increased weakness/falls. Patient appears to be mostly at her baseline however due to her debility and weakness her daughter does not feel that she can care for her anymore and does not feel safe bringing her home. Work-up looking for atraumatic injuries is obtained and largely negative. CT of her chest as patient did have some thorax trauma does show a pericardial effusion however patient is actually hypertensive and so I do not think this is decompensated by any means. She is not complain of any chest pain. Patient herself has no complaints. Work-up is largely normal. Urinalysis does show 0-5 white blood cells with 2+ bacteria however patient's not have any symptoms and does have history of chronic UTIs. We will send for culture and defer treatment at this time. Patient is admitted to medicine service for further management of her debility and help with ADLs. Lab Data Attestation: I reviewed the patient's lab results. Labs: Laboratory Results - last 24 hr 12/15/22 12/15/22 12/16/22 23:38 23:38 00:15 WBC 7.3 RBC 4.15 L Hgb 11.1 L Hct 36.8 L MCV 88.7 MCH 26.7 L MCHC 30.2 L RDW Std Deviation 52.1 H RDW Coeff of Carrie 16.1 H Plt Count 279 MPV 10.7 Immature Gran % (Auto) 1.000 H Neut % (Auto) 66.3 Lymph % (Auto) 21.5 Thomas % (Auto) 9.1 Eos % (Auto) 1.5 Baso % (Auto) 0.6 Absolute Neuts (auto) 4.8 Absolute Lymphs (auto) 1.56 Nucleated RBC % 0 Sodium 141 Potassium 4.7 Chloride 107 Carbon Dioxide 29.0 Anion Gap 5 BUN 30 H Creatinine 0.92 Estim Creat Clear Calc 42.36 Est GFR (MDRD) Af Amer 76 Est GFR (MDRD) Non-Af 63 BUN/Creatinine Ratio 32.5 H Glucose 133 H Calcium 9.1 Urine Color Yellow Urine Clarity Clear Urine pH 5.0 Ur Specific [place] 1.025 Urine Protein 30 H Urine Glucose (UA) Normal Urine Ketones Negative Urine Occult Blood Negative Urine Nitrite Negative Urine Bilirubin 1 H Urine Urobilinogen 1 H Ur Leukocyte Esterase 25 H Urine RBC 0 SEEN Urine WBC 0-5 SEEN Ur Squamous Epith Cells 0 SEEN Urine Bacteria 2+ Urine Mucus 0 SEEN Radiography Diagnostic Testing: Clinical Impression(s) from Imaging Studies Brain CT 12/15/22 22:52 IMPRESSION: 1. Stable exam 2. Diffuse involutional change, extensive deep white matter disease and bilateral remote lacunar infarcts. 3. No intracranial mass, hemorrhage or acute territorial infarct. 4. No radiographically significant sinus disease.. Electronically Signed: Mohinder Cooper MD at 23:44 EDT , Chest CT 12/15/22 22:52 IMPRESSION: 1. Mild interstitial thickening and pleural thickening at both lung bases. 2. No CT evidence of acute traumatic injury to the chest. 3. No pulmonary consolidation contusion effusion or pneumothorax. 4. Scattered granulomatous changes. 5. Pericardial effusion. 6. No acute bony fractures noted. Electronically Signed: Mohinder Cooper MD at 0:15 EDT , Rhythm Strip Rhythm Strip: Sinus Rhythm Rate: 78 Ectopy: None EKG Initial EKG: Attestation: I personally reviewed and interpreted this EKG as follows: Interpretation: Sinus Rhythm Comments: Normal sinus rhythm at a rate of 78 bpm Left axis deviation Right bundle branch block Normal ST segments Prior EKG tracings: available for review Prior: Unchanged Discharge Plan Dx/Rx/DC Orders Clinical Impression: Fall, Generalized weakness, CVA (cerebral infarction), Essential hypertension Disposition Disposition: Acute Care Hospital [facility] Discharge Date/Time: 12/16/22 01:29
[2022-12-16] VITALS (13 sets, daily range): BP systolic 149–181; BP diastolic 49–71; PULSE 76–91; RESP 16–20; TEMP 36.4–37.1; O2SAT 94–97; BMI 32.6
[2022-12-16 00:05] LABS: Absolute Lymphocyte Count 1.56 X10^3/uL (0.83-4.51); Absolute Neutrophil Count 4.8 X10^3/uL (2.0-7.7); Anion Gap 5 (5-15); BUN 30 mg/dL (7-18); BUN/Creat Ratio 32.5 RATIO (10-20); Basophil# 0.04 X10^3/uL; Basophil% 0.6 % (0-1); Calcium,Total 9.1 mg/dL (8.5-10.1); Chloride 107 mmol/L (98-107); Creatinine, Serum 0.92 mg/dL (0.55-1.02); EST Glomerular Filtration Rate 63 mL/min (>60); Eosinophil# 0.11 X10^3/uL; Eosinophils% 1.5 % (0-5); Est Glom Filt Rate - Afr Amer 76 mL/min (>60); Estimated Creatinine Clearance 42.36 ml/min; Glucose 133 mg/dL (74-106); Hematocrit 36.8 % (37-47); Hemoglobin 11.1 g/dL (12.0-15.0); Lymphocyte # 1.56 X10^3/ul (0.83-4.51); Lymphocyte % 21.5 % (19-41); Mean Corp Hgb Conc 30.2 g/dL (32-36); Mean Corpuscular Hgb 26.7 pg (27.0-32.0); Mean Corpuscular Volume 88.7 fL (81-99); Mean Platelet Vol. 10.7 fl (6.2-12.0); Monocyte# 0.66 X10^3/uL; Monocyte% 9.1 % (0-10); NRBC Flagged by Analyzer 0 % (0-5); Neutrophil # 4.83 X10^3/uL (2.7-7.7); Neutrophil % 66.3 % (47-70); Platelet Count 279 K/mm3 (150-450); Potassium 4.7 mmol/L (3.5-5.1); RBC Distribution Width CV 16.1 % (11.6-14.6); RBC Distribution Width SD 52.1 fl (35.1-43.9); Red Blood Count 4.15 M/mm3 (4.2-5.4); Sodium Level 141 mmol/L (136-145); White Blood Count 7.3 K/mm3 (4.4-11.0)
[2022-12-16 00:22] LABS: Mucous, Urine 0 SEEN /hpf (<or=2+); Red Blood Cells-Urine 0 SEEN /hpf (0-5); Squamous Epithelial Cells - UA 0 SEEN /hpf (5-10)
[2022-12-16 00:23] LABS: Color, Urine Yellow (Yellow); Glucose, Dipstick Normal (Normal); Ketone-Dipstick Negative (Negative); Leukocyte Esterase-Dipstick 25 /ul (Negative); Nitrite-Dipstick Negative (Negative); Occult Blood-Urine Negative /ul (Negative); Protein-Dipstick 30 mg/dl (Negative); Specific Gravity, Urine 1.025 (1.002-1.030); Urine Clarity Clear (Clear); Urine Urobilinogen 1 mg/dl (Normal)
[2022-12-16 00:32] LABS: Urine Bilirubin Dipstick 1 mg/dL (Negative)
[2022-12-16 00:33] LABS: Bacteria 2+ /hpf (None Seen); White Blood Cells 0-5 SEEN /hpf (0-5)
--- NOTE | 2022-12-16 00:48 | HP.PCM.HOS_ITS ---
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 She pivoted from a recliner in an attempt to get to the wheelchair. She lost her balance and she fell. Following the fall she sustained injury on the bridge of her nose and her backside and had pain at these sites. Reportedly in the past 2 to 3 weeks she has been very weak. She denies anorexia. Patient lives with her daughter who at this time feels she cannot provide adequate help for patient and is looking to patient's going for rehabilitation. [facility] Medical History (Updated 12/16/22 @ 03:[address] Kwesi Rodríguez MD) Anxiety Carotid stenosis, right Chronic pain Confusion CVA (cerebral infarction) (11/2012) Debility Dementia Dementia associated with other underlying disease with behavioral disturbance Depression Diabetes Diabetic neuropathy Difficulty walking Essential hypertension Former smoker GERD (gastroesophageal reflux disease) History of suicide attempt Hyperlipidemia Hypertension Left hemiparesis Localized swelling of both lower legs mechanical fall Obesity Osteoporosis Physical debility Pre-operative cardiovascular examination Pulmonary hypertension Right bundle branch block Stroke/cerebrovascular accident Tobacco abuse Type 2 diabetes mellitus UTI (urinary tract infection) Weakness Home Medications escitalopram oxalate 20 mg tablet 30 mg PO QHS mood enhancer 06/14/17 [History Last Taken 10/23/18] memantine 10 mg tablet 10 mg PO BID dementia 06/08/18 [History Last Taken 10/23/18] aspirin 81 mg chewable tablet 81 mg PO DAILY@0800 heart 06/10/18 [History Last Taken 10/22/18] atorvastatin 40 mg tablet 40 mg PO QHS cholesterol 06/10/18 [History Last Taken 10/23/18] clopidogrel 75 mg tablet 75 mg PO DAILY blood thinner 06/10/18 [History Last Taken 10/22/18] hydroxychloroquine 200 mg tablet (Plaquenil) 200 mg PO BID arthritis 09/08/18 [History Last Taken 10/22/18] melatonin 10 mg capsule 10 mg PO HS sleep 04/27/19 [History Last Taken Unknown] loperamide 2 mg capsule 2 mg PO Q6H PRN Diarrhea 07/25/20 [History Last Taken Unknown] metformin 500 mg tablet,extended release 24 hr 500 mg PO BID diabetes 07/23/21 [History Last Taken Unknown] pioglitazone 15 mg tablet 15 mg PO DAILY supplement 07/23/21 [History Last Taken Unknown] dicyclomine 10 mg capsule 10 mg PO 4X/DAY PRN PRN Pain 03/01/22 [History Last Taken Unknown] acetaminophen 325 mg tablet (Tylenol) 650 mg PO Q6H PRN PRN Pain Score 1-10/Temp > 100.7 F #0 tabs 03/04/22 [Rx Last Taken Unknown] guaifenesin 1,200 mg tablet, extended release 12 hr (Mucus Relief ER) 1,200 mg PO BID #0 tabs 03/04/22 [Rx Last Taken Unknown] cephalexin 250 mg capsule 250 mg PO DAILY PRN infection 12/16/22 [History Last Taken Unknown] galantamine 16 mg 24 hr capsule,extended release 16 mg PO DAILY 12/16/22 [History Last Taken Unknown] galantamine 8 mg 24 hr capsule,extended release 8 mg PO DAILY 12/16/22 [History Last Taken Unknown] pantoprazole 40 mg tablet,delayed release 40 mg PO BID 12/16/22 [History Last Taken Unknown] venlafaxine 75 mg capsule,extended release 24 hr 75 mg PO DAILY 12/16/22 [History Last Taken Unknown] zolpidem 5 mg tablet 5 mg PO QHS PRN Sleep 12/16/22 [History Last Taken Unknown] Allergy/AdvReac Type Severity Reaction Status Date / Time promethazine HCl AdvReac Nausea Verified 12/15/22 20:57 [From Phenergan] Family History Father Alcoholism Depression Son Alcoholism Depression Diabetes Hypertension Daughter Alcoholism Asthma Depression Hypertension Migraines Mother Breast cancer Depression Surgical History History of appendectomy History of carotid endarterectomy (~10/2018) History of dilation and curettage History of tonsillectomy and adenoidectomy History of tubal ligation Previous back surgery Status post lumbar spine surgery for decompression of spinal cord Social History Smoking Status: Former smoker pack-years: 25 how long ago did patient quit smokin years ago alcohol intake: never substance use type: does not use caffeine: Yes Type: coffee Number of servings: 2 ROS ROS Narrative Pertinent positives and pertinent negatives as noted in HPI. All other systems were reviewed and are negative Vital Signs Vital Signs Vital Signs: 12/15/22 20:50 12/15/22 22:28 12/16/22 00:17 Temperature 97.2 F L 97.9 F Temperature Source Temporal Oral Pulse Rate 84 Respiratory Rate 15 Respiratory Effort Normal Blood Pressure 174/74 H Blood Pressure Mean 107 Pulse Ox 94 Oxygen Delivery Method Room Air Weight Weight: 85.6 kg Body Mass Index (BMI) 33.4 Physical Exam Narrative Physical exam: General: Well-nourished, well-developed. Head: Normocephalic, atraumatic, no tenderness Eyes: Vision is grossly intact. EOMI ENT: Abrasions on nose; moist mucous membranes, no rhinorrhea Neck: Nontender, No thyromegaly. CVS: Regular rate and rhythm. S1-S2 present. No murmur, gallop or rub. Respiratory : clear to auscultation bilaterally, chest wall nontender Abdomen: Soft, nontender, nondistended, normal bowel sounds, no masses : Deferred Back: Nontender, no CVA tenderness, no midline spinal tenderness, deformities, step-offs Extremities: Nontender full range of motion, no trauma Skin: Ecchymosis and scattered abrasions on skin. Normal color. Neuro: Alert, oriented, cranial nerves II through XII grossly intact. Strength of right upper and right lower extremity 5 out of 5. Strength in left upper extremity 4 out of 5. Contracted fingers of left hand. Reduced range of motion of left lower leg. Strength in left lower leg 1 out of 5. Psychiatry: Normal mood. Normal affect. Not depressed. Not anxious. Results Lab / Micro Data Result Diagrams: 12/15/22 23:38 12/15/22 23:38 Labs: Laboratory Results - last 24 hr 12/15/22 23:38: WBC 7.3, RBC 4.15 L, Hgb 11.1 L, Hct 36.8 L, MCV 88.7, MCH 26.7 L, MCHC 30.2 L, RDW Std Deviation 52.1 H, RDW Coeff of Carrie 16.1 H, Plt Count 279, MPV 10.7, Immature Gran % (Auto) 1.000 H, Neut % (Auto) 66.3, Lymph % (Auto) 21.5, Garrett % (Auto) 9.1, Eos % (Auto) 1.5, Baso % (Auto) 0.6, Absolute Neuts (auto) 4.8, Absolute Lymphs (auto) 1.56, Nucleated RBC % 0 12/15/22 23:38: Sodium 141, Potassium 4.7, Chloride 107, Carbon Dioxide 29.0, Anion Gap 5, BUN 30 H, Creatinine 0.92, Estim Creat Clear Calc 42.36, Est GFR (MDRD) Af Amer 76, Est GFR (MDRD) Non-Af 63, BUN/Creatinine Ratio 32.5 H, Glucose 133 H, Calcium 9.1 12/16/22 00:15: Urine Color Yellow, Urine Clarity Clear, Urine pH 5.0, Ur Specific [place] 1.025, Urine Protein 30 H, Urine Glucose (UA) Normal, Urine Ketones Negative, Urine Occult Blood Negative, Urine Nitrite Negative, Urine Bilirubin 1 H, Urine Urobilinogen 1 H, Ur Leukocyte Esterase 25 H, Urine RBC 0 SEEN, Urine WBC 0-5 SEEN, Ur Squamous Epith Cells 0 SEEN, Urine Bacteria 2+, Urine Mucus 0 SEEN Rhythm Strip Rhythm Strip: Sinus Rhythm Rate: 78 Ectopy: None Radiology Impression Brain CT 12/15/22 22:52 IMPRESSION: 1. Stable exam 2. Diffuse involutional change, extensive deep white matter disease and bilateral remote lacunar infarcts. 3. No intracranial mass, hemorrhage or acute territorial infarct. 4. No radiographically significant sinus disease.. Electronically Signed: Mohinder Cooper MD at 23:44 EDT , Chest CT 12/15/22 22:52 IMPRESSION: 1. Mild interstitial thickening and pleural thickening at both lung bases. 2. No CT evidence of acute traumatic injury to the chest. 3. No pulmonary consolidation contusion effusion or pneumothorax. 4. Scattered granulomatous changes. 5. Pericardial effusion. 6. No acute bony fractures noted. Electronically Signed: Mohinder Cooper MD at 0:15 EDT , Assessment & Plan Assessment/Plan (1) Generalized weakness: (2) Fall: (3) Diabetes: PLAN: Plan Generalized weakness and fall CT brain with chronic changes. CT brain was independently interpreted and I agree with radiology interpretation. Chest CT on presentation was unremarkable. PT and OT consulted for evaluation and treatment. Case management consult. Check vitamin D. Check vitamin B12; check TSH Diabetes mellitus Blood glucose is stable Home oral hypoglycemic regimen continued. Accu-Chek QA CHS ordered. Elevated BUN BUN on presentation was 30. His BUN in part of March 2022 and in earlier of 2022 was between 7-14. Likely dehydration. Gentle IV hydration ordered. Trend BMP. Hypertension Blood pressure is not within goal. So far no home antihypertensive regimen found on file. From review of records patient blood pressure was soft when she was admitted in March 2022. Blood pressure medications were held at this t marce and on discharged blood pressure medications were started. PRN Hydralazine ordered. Chronic anemia Hemoglobin on presentation was 11.1. Improved Trend H&H. DVT prophylaxis: Subcutaneous Lovenox ordered. Charges/Coding Visit Charges Inpatient E&M: 37790 Init Hosp L3
[2022-12-16] MEDS: 0.9% Normal Saline 1,000 ML 75 ML IV ×2 (02:51→14:34)
[2022-12-16 02:54] LABS: Bedside Glucose 97 mg/dL (74-106)
[2022-12-16] MEDS: hydrALAZINE 20 MG/ML Vial 5 MG IV ×3 (03:04→22:22)
[2022-12-16] MEDS: Ondansetron 4 MG/2 ML Vial IV (06:22)
[2022-12-16] MEDS: Acetaminophen 325 MG Tablet 650 MG PO ×2 (06:47→22:41)
[2022-12-16 06:48] LABS: Bedside Glucose 104 mg/dL (74-106)
[2022-12-16 07:12] LABS: Anion Gap 3 (5-15); BUN 27 mg/dL (7-18); BUN/Creat Ratio 38.2 RATIO (10-20); Calcium,Total 8.5 mg/dL (8.5-10.1); Chloride 111 mmol/L (98-107); Creatinine, Serum 0.71 mg/dL (0.55-1.02); EST Glomerular Filtration Rate 85 mL/min (>60); Est Glom Filt Rate - Afr Amer 103 mL/min (>60); Estimated Creatinine Clearance 38.97 ml/min; Glucose 106 mg/dL (74-106); Potassium 3.8 mmol/L (3.5-5.1); Sodium Level 141 mmol/L (136-145)
[2022-12-16 08:05] LABS: Thyroid Stim Hormone (TSH) 1.27 uIU/mL (0.358-3.74)
[2022-12-16] MEDS: metFORMIN (XR) 500 MG Tablet PO ×2 (08:30→17:09)
[2022-12-16] MEDS: Aspirin 81 MG TAB.CHEW PO (08:30)
[2022-12-16] MEDS: Pioglitazone Hydrochloride 15 MG Tablet PO (08:31)
[2022-12-16] MEDS: Venlafaxine XR 75 MG Capsule PO (08:31)
[2022-12-16] MEDS: Hydroxychloroquine 200 MG Tablet PO ×2 (08:31→22:23)
[2022-12-16] MEDS: Pantoprazole Sodium 40 MG Tablet PO ×2 (08:31→22:23)
[2022-12-16] MEDS: Enoxaparin 40 MG/0.4 ML Syringe SC (08:31)
[2022-12-16] MEDS: Memantine Hydrochloride 10 MG Tablet PO ×2 (08:31→22:23)
[2022-12-16] MEDS: Clopidogrel Bisulfate 75 MG Tablet PO (08:33)
[2022-12-16 09:21] LABS: Vitamin B12 252 pg/mL (211-911); Vitamin D,25 Hydroxy 26.3 ng/mL
[2022-12-16] MEDS: Galantamine Hydrobromide 4 MG Tablet PO (09:23)
[2022-12-16] MEDS: Galantamine Hydrobromide 4 MG Tablet 8 MG PO (09:23)
--- NOTE | 2022-12-16 09:45 | CASEMGMT ---
PEDRO CHAPPELL Assessment: Face to Face with pt for initial transition planning/care coordination assessment. PEDRO CHAPPELL introduced self and role at [facility], pt voices understanding and consents to assessment. Pt is A/O x3 and answers all questions appropriately at this time. Pt sitting up in bed in no distress at this time. Care providers, pharmacy, and demographics verified/updated. Admitting Dx: generalized weakness PCP:Suzette Specialists:Pt denies Preferred Pharmacy:[facility] [place] Insurance: [facility] Prescription Benefit: yes LNOK: Nanci García, dtr Living Arrangements: Pt lives with dtr in a single story home with 3 steps to enter with a grab bar. Pt reports she is I in dressing herself but her dtr assists with bathing, cooking, cleaning and laundry. Pt states she has been falling frequently in the home. Pt dtr is disabled and with pt 01/02. Transportation: Pt dtr provides transportation for pt. DME/HHC/SNF: Pt has a w/c, walker and walk in tub. Pt has had HHC in the past but does not know the name of the agency. Pt has been to [facility] in the past and other facilities but does not recall the name. Pt states that she plans to go to a SNF in [place]. She is not sure the name of it. She states her dtr should be coming in at any time and she does know the name. Pt has yet to work with therapy. Pt states no further concerns/needs. CM to follow. Advised pt to ask CM if any further question/concerns/needs arise, voices understanding. Pt Goal: SNF in [place] Plan: TBD, pending therapy yelena
--- NOTE | 2022-12-16 11:24 | CASEMGMT ---
PEDRO CM in to discuss LOBO form with patient. RN CM explained LOBO form, patient voiced understanding. Pt signed form and filed in chart. Pt provided with a copy of signed LOBO form. Patient had no further questions or concerns at this time.
--- NOTE | 2022-12-16 11:33 | CASEMGMT ---
Social Work SW received referral for SNF placement. SW met with pt and introduced self and role of SW. Pt confirms that she will require SNF placement. A list of SNF providers including quality and resource use data and consistent with the patient?s preferred geographic region, medical needs, and insurance network [facility]. Pts [facility] provider is [facility]. rosy Martines physician assistant primary care updated and will send referral. Precert will be needed prior to discharge to SNF. Plan: [facility], pending acceptance and precert. AYDE Medina
--- NOTE | 2022-12-16 11:47 | CASEMGMT ---
Discharge Planning Referral sent to [facility] via [facility]. Bobbi Fink
--- NOTE | 2022-12-16 13:04 | CASEMGMT ---
Discharge Planning Patient has been accepted by [facility]. Asked facility to initiate pre-cert. Bobbi Fink
--- NOTE | 2022-12-16 15:09 | PN_ITS ---
Subjective Subjective Patient seen and examined. She has no active complaints this morning. She denies any fever, chills, cough, chest pain, palpitations, dizziness, nausea, vomiting or diarrhea. Review of systems is otherwise negative. SHe was admitted with a complaint of weakness and debility. She is being managed for weakness, for pl acement. She has remained hemodynamically stable. Objective Data Objective Data Vital Signs: Vital Signs Temp Pulse Resp BP Pulse Ox O2 Del Method 98.4 F 79 18 165/62 H 97 Room Air 12/16/22 14:25 12/16/22 14:34 12/16/22 14:25 12/16/22 14:34 12/16/22 14:25 12/16/22 14:25 Oxygen Delivery Method Room Air Weight: 184 lb 4.903 oz Body Mass Index (BMI) 32.6 Intake & Output: Intake and Output for Last 24 Hours 12/14/22 12/15/22 12/16/22 23:59 23:59 23:59 Intake Total 1028.75 / 1028.75 Balance 1028.75 / 1028.75 Lab / Micro Data Result Diagrams: 12/15/22 23:38 12/16/22 06:30 Labs: Laboratory Results - last 24 hr 12/15/22 23:38: WBC 7.3, RBC 4.15 L, Hgb 11.1 L, Hct 36.8 L, MCV 88.7, MCH 26.7 L, MCHC 30.2 L, RDW Std Deviation 52.1 H, RDW Coeff of Carrie 16.1 H, Plt Count 279, MPV 10.7, Immature Gran % (Auto) 1.000 H, Neut % (Auto) 66.3, Lymph % (Auto) 21.5, [place] % (Auto) 9.1, Eos % (Auto) 1.5, Baso % (Auto) 0.6, Absolute Neuts (auto) 4.8, Absolute Lymphs (auto) 1.56, Nucleated RBC % 0 12/15/22 23:38: Sodium 141, Potassium 4.7, Chloride 107, Carbon Dioxide 29.0, Anion Gap 5, BUN 30 H, Creatinine 0.92, Estim Creat Clear Calc 42.36, Est GFR (MDRD) Af Amer 76, Est GFR (MDRD) Non-Af 63, BUN/Creatinine Ratio 32.5 H, Glucose 133 H, Calcium 9.1 12/16/22 00:15: Urine Color Yellow, Urine Clarity Clear, Urine pH 5.0, Ur Specific [place] 1.025, Urine Protein 30 H, Urine Glucose (UA) Normal, Urine Ketones Negative, Urine Occult Blood Negative, Urine Nitrite Negative, Urine Bilirubin 1 H, Urine Urobilinogen 1 H, Ur Leukocyte Esterase 25 H, Urine RBC 0 SEEN, Urine WBC 0-5 SEEN, Ur Squamous Epith Cells 0 SEEN, Urine Bacteria 2+, Urine Mucus 0 SEEN 12/16/22 02:30: POC Glucose 97 12/16/22 06:29: POC Glucose 104 12/16/22 06:30: Sodium 141, Potassium 3.8, Chloride 111 H, Carbon Dioxide 27.0, Anion Gap 3 L, BUN 27 H, Creatinine 0.71, Estim Creat Clear Calc 38.97, Est GFR (MDRD) Af Amer 103, Est GFR (MDRD) Non-Af 85, BUN/Creatinine Ratio 38.2 H, Gluc ose 106, Calcium 8.5 12/16/22 06:30: TSH 1.27 12/16/22 06:30: Vitamin B12 252, Vitamin D 25-Hydroxy 26.3 Radiography Diagnostic Testing: Radiology Impression Brain CT 12/15/22 22:52 IMPRESSION: 1. Stable exam 2. Diffuse involutional change, extensive deep white matter disease and bilateral remote lacunar infarcts. 3. No intracranial mass, hemorrhage or acute territorial infarct. 4. No radiographically significant sinus disease.. Electronically Signed: Mohinder Cooper MD at 23:44 EDT , Chest CT 12/15/22 22:52 IMPRESSION: 1. Mild interstitial thickening and pleural thickening at both lung bases. 2. No CT evidence of acute traumatic injury to the chest. 3. No pulmonary consolidation contusion effusion or pneumothorax. 4. Scattered granulomatous changes. 5. Pericardial effusion. 6. No acute bony fractures noted. Electronically Signed: Mohinder Cooper MD at 0:15 EDT , Rhythm Strip Rhythm Strip: Sinus Rhythm Rate: 78 Ectopy: None Physical Exam Const alert, oriented x3 and no apparent distress General Appearance: cooperative HEENT normocephalic, head/scalp atraumatic, EAC's normal, TM's normal bilaterally, moist oral mucous membranes and oropharynx normal Eyes PERRL and EOMs intact bilaterally Neck no lymphadenopathy, supple and no JVD Lymph Lymphatic: no lymphadenopathy noted and no lymphedema noted Resp normal respiratory effort, normal air movement and clear to auscultation bilaterally Cardio regular rate, regular rhythm, S1 normal heart sound, S2 normal heart sound and no murmurs GI normal to inspection, nondistended, normoactive bowel sounds, soft to palpation, non-tender and non-distended Extremity normal capillary refill, no clubbing, cyanosis or edema and no calf tenderness Skin General Skin Exam: no breakdown and turgor normal Neuro CN's II-XII intact bilaterally, no focal motor deficits, no sensory deficits noted and deep tendon reflexes 2+ bilaterally Psych thought process normal, cooperative and affect normal Appearance: appropriate Assessment & Plan Assessment/Plan (1) Generalized weakness: (2) Fall: PLAN: Plan #Debility due to generalised weakness and mechanical fall * admitted with a complaint of mechanical fall * CT of the brain showed no acute intracranial pathology * PT/OT on board. Fall precautions * #Abnormal urinalysis: urinalysis showed bacteria 2+. She has no urinary symptoms. She does appear to have chronic bacteriuria. Will hold off on antibiotics now and get urine culture #Type 2 diabetes mellitus: on ISS. Accuchecks ACHS. On metformin and pioglitazone. #History of stroke: on aspirin and plavix as well atorvastatin #Hyperlipidemia: on atorvastatin #Chronic anemia: stable. Hb is ~ 11. #Depression and anxiety: on venlafaxine. #Dementia; on memantine and galantamine DVT prophylaxis: lovenox Disposition: will benefit from placement. Case management on board Charges/Coding Visit Charges Inpatient E&M: 03654 Subs Hosp L2
[2022-12-16 17:33] LABS: Bedside Glucose 93 mg/dL (74-106)
[2022-12-16] MEDS: MELATONIN 3 MG TABLET PO (22:23)
[2022-12-16] MEDS: Atorvastatin Calcium 40 MG Tablet PO (22:23)
[2022-12-16] MEDS: Zolpidem Tartrate 5 MG Tablet PO (22:35)
[2022-12-16 23:22] LABS: Bedside Glucose 116 mg/dL (74-106)
[2022-12-17] MEDS: 0.9% Normal Saline 1,000 ML 75 ML IV (03:28)
[2022-12-17 03:33] VITALS: BP 153/69; PULSE 86; RESP 20; TEMP 36.6; O2SAT 94
[2022-12-17 07:19] VITALS: O2SAT 94
[2022-12-17 08:03] LABS: Bedside Glucose 105 mg/dL (74-106)
[2022-12-17] MEDS: Enoxaparin 40 MG/0.4 ML Syringe SC (09:02)
[2022-12-17] MEDS: Pioglitazone Hydrochloride 15 MG Tablet PO (09:03)
[2022-12-17] MEDS: Hydroxychloroquine 200 MG Tablet PO (09:03)
[2022-12-17] MEDS: Memantine Hydrochloride 10 MG Tablet PO (09:03)
[2022-12-17] MEDS: Pantoprazole Sodium 40 MG Tablet PO (09:03)
[2022-12-17] MEDS: metFORMIN (XR) 500 MG Tablet PO (09:03)
[2022-12-17] MEDS: Venlafaxine XR 75 MG Capsule PO (09:03)
[2022-12-17] MEDS: Aspirin 81 MG TAB.CHEW PO (09:03)
[2022-12-17] MEDS: Galantamine Hydrobromide 4 MG Tablet 8 MG PO (09:03)
[2022-12-17] MEDS: Clopidogrel Bisulfate 75 MG Tablet PO (09:03)
[2022-12-17] MEDS: Galantamine Hydrobromide 4 MG Tablet PO (09:03)
[2022-12-17 09:12] VITALS: BP 161/78; PULSE 85; RESP 18; TEMP 36.9; O2SAT 94
[2022-12-17 09:31] LABS: Absolute Lymphocyte Count 1.45 X10^3/uL (0.83-4.51); Absolute Neutrophil Count 3.2 X10^3/uL (2.0-7.7); Basophil# 0.03 X10^3/uL; Basophil% 0.6 % (0-1); Eosinophil# 0.14 X10^3/uL; Eosinophils% 2.6 % (0-5); Hematocrit 32.3 % (37-47); Hemoglobin 9.6 g/dL (12.0-15.0); Lymphocyte # 1.45 X10^3/ul (0.83-4.51); Mean Corp Hgb Conc 29.7 g/dL (32-36); Mean Corpuscular Hgb 26.6 pg (27.0-32.0); Mean Corpuscular Volume 89.5 fL (81-99); Mean Platelet Vol. 10.2 fl (6.2-12.0); Monocyte# 0.51 X10^3/uL; Monocyte% 9.5 % (0-10); NRBC Flagged by Analyzer 0 % (0-5); Neutrophil # 3.24 X10^3/uL (2.7-7.7); Neutrophil % 60.1 % (47-70); Platelet Count 240 K/mm3 (150-450); RBC Distribution Width CV 16.1 % (11.6-14.6); RBC Distribution Width SD 52.8 fl (35.1-43.9); Red Blood Count 3.61 M/mm3 (4.2-5.4); White Blood Count 5.4 K/mm3 (4.4-11.0)
[2022-12-17 10:12] LABS: Anion Gap 3 (5-15); BUN 13 mg/dL (7-18); BUN/Creat Ratio 21.1 RATIO (10-20); Calcium,Total 8.4 mg/dL (8.5-10.1); Chloride 111 mmol/L (98-107); Creatinine, Serum 0.62 mg/dL (0.55-1.02); EST Glomerular Filtration Rate 100 mL/min (>60); Est Glom Filt Rate - Afr Amer 121 mL/min (>60); Estimated Creatinine Clearance 38.97 ml/min; Glucose 112 mg/dL (74-106); Potassium 3.9 mmol/L (3.5-5.1); Sodium Level 140 mmol/L (136-145)
--- NOTE | 2022-12-17 10:44 | CASEMGMT ---
Social Work Pt was approved by insurance to go to [facility] today. SW notified physician. SW also let pt know, pt states understanding. SW will continue to follow, await discharge. LENO Cr
[2022-12-17 11:22] VITALS: BP 165/71; PULSE 81; RESP 18; TEMP 36.7; O2SAT 96
--- NOTE | 2022-12-17 11:25 | TREXTCAR_ITS ---
Diet Diet Order/Speech Therapy: 12/16/22 02:21 Diet: Cardiac - Heart Healthy Food consistency:: Regular Liquid Consistency:: Regular/Thin Diet: Consistent Carb - Calorie Controlled Food consistency:: Regular Liquid Consistency:: Regular/Thin How many daily calories?: 1800 calorie Routine Orders/Code Status Enema Type: Fleetz Enema Frequency: Daily PRN Suppository Type: Dulcolax 10mg O2 Frequency: PRN Keep PO Greater than or Equal to (%): 90 Wound(s) Back: Wound Type: Abrasion L. agarwal: Wound Type: Abrasion Nose: Wound Type: Abrasion Therapies Weight Bearing: Weight bearing as tolerated Physical Therapy: Eval and Treat Occupational Therapy: Eval and Treat Problem/Diagnosis (1) Generalized weakness: Status: Acute Code(s): R53.1 - Weakness (2) Fall: Status: Acute Code(s): W19.XXXA - Unspecified fall, initial encounter Plan #Debility due to generalised weakness and mechanical fall * admitted with a complaint of mechanical fall * CT of the brain showed no acute intracranial pathology * PT/OT on board. Fall precautions * #Abnormal urinalysis: urinalysis showed bacteria 2+. She has no urinary symptoms. She does appear to have chronic bacteriuria. Will hold off on antibiotics now and get urine culture #Type 2 diabetes mellitus: on ISS. Accuchecks ACHS. On metformin and pioglitazone. #History of stroke: on aspirin and plavix as well atorvastatin #Hyperlipidemia: on atorvastatin #Chronic anemia: stable. Hb is ~ 11. #Depression and anxiety: on venlafaxine. #Dementia; on memantine and galantamine DVT prophylaxis: lovenox Disposition: will benefit from placement. Case management on board Allergies/Procedures Done in Hospital Allergies promethazine HCl [From Phenergan] Adverse Reaction (Verified 12/15/22 20:57) Nausea Procedures: None Type of Care/Length of Stay Estimated LOS: Convalescent Care Less Than 30 days Type of Care Needed: Skilled Rehab Potential: Fair Prognosis: Fair Additional Orders/Day of Discharge Day of Discharge: 12/17/22 Discharge Plan Admission Admit Date/Time: 12/16/22 00:51 Primary Reason for Your Visit: debility and weakness Attending Provider: Magalys Palmer Primary Care Provider: Opal Bradford Consulting Providers: Kwesi Rodríguez Instructions Patient Instructions: ED FALL-from [id number]-Zacteh Discharge Orders/Prescriptions Prescriptions: Continued hydroxychloroquine [Plaquenil] 200 mg tablet 200 mg PO BID loperamide 2 mg capsule 2 mg PO Q6H PRN (Reason: Diarrhea) Label Comments: Take 1 capsule by mouth four times daily as needed for Diarrhea. metformin 500 mg tablet extended release 24 hr 500 mg PO BID pioglitazone 15 mg tablet 15 mg PO DAILY Label Comments: Take 1 tablet by mouth once daily. memantine 10 MG tablet 10 mg PO BID atorvastatin 40 MG tablet 40 mg PO QHS Label Comments: CHOLESTEROL clopidogrel 75 MG tablet 75 mg PO DAILY Hold Instructions: Resume on 04/13/22. Label Comments: BLOOD THINNER aspirin 81 MG tablet,chewable 81 mg PO DAILY@0800 Hold Instructions: Resume on 04/12/22. Label Comments: HEART HEALTH dicyclomine 10 mg capsule 10 mg PO 4X/DAY PRN PRN (Reason: Pain) Label Comments: TAKE 1 CAPSULE BY MOUTH BEFORE MEALS AND AT BEDTIME NEEDED acetaminophen [Tylenol] 325 mg Tablet 650 mg PO Q6H PRN PRN (Reason: Pain Score 1-10/Temp > 100.7 F) Qty: 0 0RF Mucus Relief ER 1,200 mg Tablet Extended Release 12hr 1,200 mg PO BID Qty: 0 0RF venlafaxine 75 mg capsule,extended release 24hr 75 mg PO DAILY cephalexin 250 mg capsule 250 mg PO DAILY PRN (Reason: infection) pantoprazole 40 mg tablet,delayed release (DR/EC) 40 mg PO BID zolpidem 5 mg tablet 5 mg PO QHS PRN (Reason: Sleep) Label Comments: Take 1 tablet by mouth daily at bedtime. galantamine 16 mg capsule,ext rel. pellets 24 hr 16 mg PO DAILY Label Comments: TAKE 1 CAPSULE BY MOUTH ONCE DAILY WITH BREAKFAST. TAKE ALONG WITH 8MG TO EQUAL 24MG galantamine 8 mg capsule,ext rel. pellets 24 hr 8 mg PO DAILY Label Comments: TAKE 1 CAPSULE BY MOUTH ONCE DAILY WITH BREAKFAST. ALONG WITH 16MG TO EQUAL 24MG Rx Instructions: take along w the 16mg to equal 24 mg Referrals / Follow Up: Opal Bradford MD [Primary Care Provider] - Within 2 Weeks Disposition Disposition (needs filled in before D/C Order can be placed): [facility]
--- NOTE | 2022-12-17 11:27 | PCM.DC.SUM ---
Providers Date of Admission: 12/16/22 Date of Discharge: 12/17/22 Primary Care Physician: Dr. Opal Bradford MD Reason For Visit: GENERALIZED WEAKNESS Diagnosis Discharge Diagnosis (1) Generalized weakness: Status: Acute Code(s): R53.1 - Weakness (2) Fall: Status: Acute Code(s): W19.XXXA - Unspecified fall, initial encounter Plan #Debility due to generalised weakness and mechanical fall admitted with a complaint of mechanical fall CT of the brain showed no acute intracranial pathology PT/OT on board. Fall precautions #Abnormal urinalysis: urinalysis showed bacteria 2+. She has no urinary symptoms. She does appear to have chronic bacteriuria. Will hold off on antibiotics now and get urine culture #Type 2 diabetes mellitus: on ISS. Accuchecks ACHS. On metformin and pioglitazone. #History of stroke: on aspirin and plavix as well atorvastatin #Hyperlipidemia: on atorvastatin #Chronic anemia: stable. Hb is ~ 11. #Depression and anxiety: on venlafaxine. #Dementia; on memantine and galantamine DVT prophylaxis: lovenox Disposition: will benefit from placement. Case management on board Medications at Discharge Home Medications memantine 10 mg tablet 10 mg PO BID dementia 06/08/18 aspirin 81 mg chewable tablet 81 mg PO DAILY@0800 heart 06/10/18 atorvastatin 40 mg tablet 40 mg PO QHS cholesterol 06/10/18 clopidogrel 75 mg tablet 75 mg PO DAILY blood thinner 06/10/18 hydroxychloroquine 200 mg tablet (Plaquenil) 200 mg PO BID arthritis 09/08/18 loperamide 2 mg capsule 2 mg PO Q6H PRN Diarrhea 07/25/20 metformin 500 mg tablet,extended release 24 hr 500 mg PO BID diabetes 07/23/21 pioglitazone 15 mg tablet 15 mg PO DAILY supplement 07/23/21 dicyclomine 10 mg capsule 10 mg PO 4X/DAY PRN PRN Pain 03/01/22 acetaminophen 325 mg tablet (Tylenol) 650 mg PO Q6H PRN PRN Pain Score 1-10/Temp > 100.7 F #0 tabs 03/04/22 guaifenesin 1,200 mg tablet, extended release 12 hr (Mucus Relief ER) 1,200 mg PO BID #0 tabs 03/04/22 cephalexin 250 mg capsule 250 mg PO DAILY PRN infection 12/16/22 galantamine 16 mg 24 hr capsule,extended release 16 mg PO DAILY 12/16/22 galantamine 8 mg 24 hr capsule,extended release 8 mg PO DAILY 12/16/22 pantoprazole 40 mg tablet,delayed release 40 mg PO BID 12/16/22 venlafaxine 75 mg capsule,extended release 24 hr 75 mg PO DAILY 12/16/22 zolpidem 5 mg tablet 5 mg PO QHS PRN Sleep 12/16/22 Hospital Course Operations None Procedures None Summary of Care Provided Minutes Spent on Discharge: 47 Hospital Course: Patient is a 77-year-old female with a past medical history as outlined was admitted through the ED on 12/16/2022 with a complaint of mechanical fall. She was Forehead Located to her wheelchair. She lost her balance and fell. She had been getting progressively weak over the past 2 to 3 weeks prior to admission. She had no other complaints. She lives with her daughter who stated that she could not take care of the patient and so she was admitted to be managed for debility with mechanical falls and for placement. She was hydrated with fluids. PT OT were consulted. She was deemed as needing skilled therapy and [facility]. She is follow-up with her primary care doctor within 1 to 2 weeks. Patient Seen and examined prior to discharge. She had no complaints and had an uneventful night. Review systems otherwise negative. Labs and vitals reviewed. Medication reviewed and reconciled. Physical Exam Const alert, oriented x3 and no apparent distress General Appearance: cooperative and comfortable Orientation / Consciousness: awake Exam Limitations: no limitations HEENT normocephalic, head/scalp atraumatic, hearing grossly normal bilaterally, EAC's normal, TM's normal bilaterally, moist oral mucous membranes and oropharynx normal Mouth: oral and palatal mucosa normal Eyes PERRL and EOMs intact bilaterally Neck no lymphadenopathy, supple and no JVD Lymph Lymphatic: no lymphadenopathy noted and no lymphedema noted Resp normal respiratory effort, normal air movement and clear to auscultation bilaterally Cardio regular rate, regular rhythm, S1 normal heart sound, S2 normal heart sound and no murmurs GI normal to inspection, nondistended, normoactive bowel sounds, soft to palpation, non-tender and non-distended Extremity normal capillary refill, no clubbing, cyanosis or edema and no calf tenderness Skin Skin Narrative: resolving bruises and ecchymoses around the left eye. General Skin Exam: no breakdown and turgor normal Neuro oriented x3, CN's II-XII intact bilaterally, moves all extremities, no focal motor deficits, no sensory deficits noted and deep tendon reflexes 2+ bilaterally Sensorium / Orientation: awake Motor Exam: strength 5/5 throughout Psych thought process normal, cooperative and affect normal Appearance: appropriate Weight / BMI Weight Weight: 184 lb 4.903 oz Body Mass Index (BMI) 32.6 ABG / Lab / Microbiology Data Result Diagrams: 12/17/22 09:16 12/17/22 09:16 Laboratory: Laboratory Results - last 24 hr 12/16/22 17:12: POC Glucose 93 12/16/22 22:09: POC Glucose 116 H 12/17/22 07:41: POC Glucose 105 12/17/22 09:16: WBC 5.4, RBC 3.61 L, Hgb 9.6 L, Hct 32.3 L, MCV 89.5, MCH 26.6 L, MCHC 29.7 L, RDW Std Deviation 52.8 H, RDW Coeff of Carrie 16.1 H, Plt Count 240, MPV 10.2, Immature Gran % (Auto) 0.200, Neut % (Auto) 60.1, Lymph % (Auto) 27.0, [place] % (Auto) 9.5, Eos % (Auto) 2.6, Baso % (Auto) 0.6, Absolute Neuts (auto) 3.2, Absolute Lymphs (auto) 1.45, Nucleated RBC % 0 12/17/22 09:16: Sodium 140, Potassium 3.9, Chloride 111 H, Carbon Dioxide 26.0, Anion Gap 3 L, BUN 13, Creatinine 0.62, Estim Creat Clear Calc 38.97, Est GFR (MDRD) Af Amer 121, Est GFR (MDRD) Non-Af 100, BUN/Creatinine Ratio 21.1 H, Glucose 112 H, Calcium 8.4 L D/C Instructions Discharge Diet: Low fat / Low cholesterol Discharge Activity: Return to Normal Activity Weight Bearing Status: Weight bearing as tolerated Call your doctor if you observe: Fever of 101 or Higher, Shortness of breath, Dizziness, Swelling in the ankles and Chest pain Meaningful Use Info Meaningful Use Diagnoses (Choose all that apply): None applicable Discharge Plan Admission Admit Date/Time: 12/16/22 00:51 Primary Reason for Your Visit: debility and weakness Attending Provider: Magalys Palmer Primary Care Provider: Opal Bradford Consulting Providers: Kwesi Rodríguez Instructions Patient Instructions: ED FALL-from Ulpfjuolj-Txxah-Azxzbz Discharge Orders/Prescriptions Prescriptions: Continued hydroxychloroquine [Plaquenil] 200 mg tablet 200 mg PO BID loperamide 2 mg capsule 2 mg PO Q6H PRN (Reason: Diarrhea) Label Comments: Take 1 capsule by mouth four times daily as needed for Diarrhea. metformin 500 mg tablet extended release 24 hr 500 mg PO BID pioglitazone 15 mg tablet 15 mg PO DAILY Label Comments: Take 1 tablet by mouth once daily. memantine 10 MG tablet 10 mg PO BID atorvastatin 40 MG tablet 40 mg PO QHS Label Comments: CHOLESTEROL clopidogrel 75 MG tablet 75 mg PO DAILY Hold Instructions: Resume on 04/13/22. Label Comments: BLOOD THINNER aspirin 81 MG tablet,chewable 81 mg PO DAILY@0800 Hold Instructions: Resume on 04/12/22. Label Comments: HEART HEALTH dicyclomine 10 mg capsule 10 mg PO 4X/DAY PRN PRN (Reason: Pain) Label Comments: TAKE 1 CAPSULE BY MOUTH BEFORE MEALS AND AT BEDTIME NEEDED acetaminophen [Tylenol] 325 mg Tablet 650 mg PO Q6H PRN PRN (Reason: Pain Score 1-10/Temp > 100.7 F) Qty: 0 0RF Mucus Relief ER 1,200 mg Tablet Extended Release 12hr 1,200 mg PO BID Qty: 0 0RF venlafaxine 75 mg capsule,extended release 24hr 75 mg PO DAILY cephalexin 250 mg capsule 250 mg PO DAILY PRN (Reason: infection) pantoprazole 40 mg tablet,delayed release (DR/EC) 40 mg PO BID zolpidem 5 mg tablet 5 mg PO QHS PRN (Reason: Sleep) Label Comments: Take 1 tablet by mouth daily at bedtime. galantamine 16 mg capsule,ext rel. pellets 24 hr 16 mg PO DAILY Label Comments: TAKE 1 CAPSULE BY MOUTH ONCE DAILY WITH BREAKFAST. TAKE ALONG WITH 8MG TO EQUAL 24MG galantamine 8 mg capsule,ext rel. pellets 24 hr 8 mg PO DAILY Label Comments: TAKE 1 CAPSULE BY MOUTH ONCE DAILY WITH BREAKFAST. ALONG WITH 16MG TO EQUAL 24MG Rx Instructions: take along w the 16mg to equal 24 mg Referrals / Follow Up: Opal Bradford MD [Primary Care Provider] - Within 2 Weeks Disposition Disposition (needs filled in before D/C Order can be placed): Long Term Facility Charges/Coding Visit Charges Inpatient E&M: 81569 Disch Hosp >30min
[2022-12-17 12:00] LABS: Bedside Glucose 191 mg/dL (74-106)
--- NOTE | 2022-12-17 12:11 | CASEMGMT ---
Addendum entered by Angelita Jones 12/17/22 12:41: Social Work Pt's COVID test is negative. SW called daughter Nanci, let her know pt is going to [place] today at 3pm, and insurance authorization was attained, she is agreeable. SW sent he COVID test to [place] with notification of 3pm pickup via [facility]. SW also let pt's RN know pt is set up to leave here at 3pm today. She will let pt know as pt is sleeping at this time. No further needs, pt to [facility] today. LENO Cr Original Note: Social Work SW completed PAS/RR, sent this along with all discharge instructions to [facility] via [facility]. SW set up a 3pm ambulance to take pt to [facility]. Once the COVID test is back, SW will let pt, daughter and SNF know time of pickup. Pt to [facility] skilled today. LENO Cr
== END 2022-12-17 14:15 | disposition skilled nursing facility (03) ==
LOC: ED 12-16 00:54 → MS3 12-16 01:29
PROVIDERS: Admitting Provider Hospitalist; Emergency Provider Emergency Medicine; PCP Internal Medicine; Visit Provider Student in an Organized Health Care Education/Training Program
DX: R53.1 Weakness (principal); I69.354 Hemiplegia and hemiparesis following cerebral infarction affecting left non-dominant side; F03.918 Unspecified dementia, unspecified severity, with other behavioral disturbance; E11.42 Type 2 diabetes mellitus with diabetic polyneuropathy; E11.9 Type 2 diabetes mellitus without complications; Z87.891 Personal history of nicotine dependence; Z79.82 Long term (current) use of aspirin; Z79.84 Long term (current) use of oral hypoglycemic drugs; I25.10 Atherosclerotic heart disease of native coronary artery without angina pectoris; E78.5 Hyperlipidemia, unspecified; Z79.02 Long term (current) use of antithrombotics/antiplatelets; K52.9 Noninfective gastroenteritis and colitis, unspecified; S29.9XXA Unspecified injury of thorax, initial encounter; R32 Unspecified urinary incontinence; R53.81 Other malaise; I10 Essential (primary) hypertension; W19.XXXA Unspecified fall, initial encounter; G89.29 Other chronic pain; Z79.899 Other long term (current) drug therapy; D64.9 Anemia, unspecified; F32.A Depression, unspecified; F41.9 Anxiety disorder, unspecified
CPT/HCPCS: 36415; 70450; 71250; 80048; 81001; 82306; 82607; 82962; 84443; 85025; 87086; 87426; 93005; 96361; 96372; 96374; 96375; 96376; 97162; 97166; 99221; 99285; J7030; A4216; G0378; J2405